=== PATIENT | male | born 1940 | race Caucasian/White ===

== ENCOUNTER 2017-01-02 17:26 | Observation (INO) | payer MEDICARE ==
[~2017-01-02] VITALS: Ht 177.8 cm; Wt 92.4 kg
[2017-01-02 17:37] VITALS: BP 162/90; PULSE 71; RESP 18; TEMP 98.1; O2SAT 98
[2017-01-02] MEDS ORDERED: BP pill PO (17:56)
[2017-01-02] MEDS ORDERED: XARE10TA PO (17:56)
[2017-01-02] MEDS ORDERED: SODIUM CHLOR 0.9% 1000 ML INJ 1,000 ML IV SCH (18:16)
[2017-01-02 18:30] VITALS: O2SAT 98
[2017-01-02] MEDS ORDERED: FAMOTIDINE 20 MG/2 ML VIAL IV PUSH ONE (18:30)
[2017-01-02] MEDS ORDERED: SODIUM CHLORIDE 0.9% FLUSH 10 ML FLUSH IV FLUSH PRN ×2 (18:30→22:00)
[2017-01-02] MEDS ORDERED: ONDANSETRON HCL 4 MG/2 ML VIAL IVP ONE (18:30)
[2017-01-02 18:33] LABS: AUTOMATED NEUTROPHIL # 17.6 TH/MM3 (1.8-7.7); BASOPHIL # 0.2 TH/MM3 (0-0.2); BASOPHIL % 0.9 % (0.0-2.0); EOSINOPHIL # 0.1 TH/MM3 (0-0.4); EOSINOPHIL % 0.4 % (0.0-4.0); HEMATOCRIT 37.2 % (39.0-51.0); LYMPH % 4.8 % (9.0-44.0); LYMPHOCYTE # 0.9 TH/MM3 (1.0-4.8); MEAN CELL VOLUME 90.5 FL (80.0-100.0); MEAN CORPUSCULAR HEMOGLOBIN 30.7 PG (27.0-34.0); MEAN CORPUSCULAR HGB CONC 33.9 % (32.0-36.0); MONO % 3.7 % (0.0-8.0); NEUT % 90.2 % (16.0-70.0); PLATELET COUNT 648 TH/MM3 (150-450); RED BLOOD COUNT 4.11 MIL/MM3 (4.50-5.90); RED CELL DISTRIBUTION WIDTH 15.3 % (11.6-17.2); WHITE BLOOD COUNT 19.5 TH/MM3 (4.0-11.0)
--- NOTE | 2017-01-02 18:33 | PD ---
HPI Chief Complaint: Flank/Kidney Pain Time Seen by Provider: 17:56 Travel History International Travel<30 days: No Contact w/Intl Traveler<30days: No Traveled to known affect area: No History of Present Illness HPI Patient is a 76 year old male who presents to ER with c/o of b/l flank pain, RUQ abdominal with nausea and vomiting since Saturday. Patient reports that he went to [facility] for a late lunch on Saturday, reports that since his lunch , he has been having increased nausea and vomiting. Denies diarrhea. Denies fever/chills. Reports that he is unable to keep any food or fluids down. Denies dysuria/urinary urgency/frequency. PFSH Past Medical History Hx Anticoagulant Therapy: Yes (XARELTO) Deep Vein Thrombosis: Yes Hypertension: Yes Tetanus Vaccination: Unknown Past Surgical History Other Surgery: Yes (Vein RLE, vasectomy ) Social History Alcohol Use: Yes ("Shots couple times a week" ) Tobacco Use: No Substance Use: No Allergies-Medications (Allergen,Severity, Reaction): Coded Allergies: No Known Allergies (Unverified , 01/02/17) Reported Meds & Prescriptions Reported Meds & Active Scripts Active Reported [BP pill] 1 Tab PO DAILY Xarelto (Rivaroxaban) 10 Mg Tab 10 Mg PO DAILY Review of Systems General / Constitutional: No: Fever Eyes: No: Visual changes HENT: No: Headaches Cardiovascular: No: Chest Pain or Discomfort Respiratory: No: Shortness of Breath Gastrointestinal: Positive: Nausea, Vomiting, Abdominal Pain Genitourinary: Positive: Flank Pain, No: Dysuria Musculoskeletal: No: Pain Skin: No Rash Neurologic: No: Weakness Psychiatric: No: Depression Endocrine: No: Polydipsia Hematologic/Lymphatic: No: Easy Bruising Physical Exam Narrative GENERAL: mild distress SKIN: Focused skin assessment warm/dry. HEAD: Atraumatic. Normocephalic. EYES: Pupils equal and round. No scleral icterus. No injection or drainage. ENT: No nasal bleeding or discharge. Mucous membranes pink and moist. NECK: Trachea midline. No JVD. CARDIOVASCULAR: Regular rate and rhythm. No murmur appreciated. RESPIRATORY: No accessory muscle use. Clear to auscultation. Breath sounds equal bilaterally. GASTROINTESTINAL: Abdomen soft, non-tender, nondistended. RUQ tenderness with no rebound or guarding on exam. MUSCULOSKELETAL: No obvious deformities. No clubbing. No cyanosis. No edema. Patient with b/l flank pain. NEUROLOGICAL: Awake and alert. No obvious cranial nerve deficits. Motor grossly within normal limits. Normal speech. PSYCHIATRIC: Appropriate mood and affect; insight and judgment normal. Data Data Last Documented VS Vital Signs Date Time Temp Pulse Resp B/P Pulse Ox O2 Delivery O2 Flow Rate FiO2 01/02/17 18:30 98 Room Air 01/02/17 17:37 98.1 71 18 162/90 Orders Complete Blood Count With Diff (01/02/17 18:16) Comprehensive Metabolic Panel (01/02/17 18:16) Lipase (01/02/17 18:16) Prothrombin Time / Inr (Pt) (01/02/17 18:16) Act Partial Throm Time (Ptt) (01/02/17 18:16) Urinalysis - C+S If Indicated (01/02/17 18:16) Ct Abd/Pel W/O Iv Contrast (01/02/17 18:16) Us Abdomen Gallbladder (01/02/17 ) Iv Access Insert/Monitor (01/02/17 18:16) Ecg Monitoring (01/02/17 18:16) Oximetry (01/02/17 18:16) Ondansetron Inj (Zofran Inj) (01/02/17 18:30) Sodium Chlor 0.9% 1000 Ml Inj (Ns 1000 M (01/02/17 18:16) Sodium Chloride 0.9% Flush (Ns Flush) (01/02/17 18:30) Electrocardiogram (01/02/17 18:16) Chest, Single Ap (01/02/17 18:16) Famotidine Inj (Pepcid Inj) (01/02/17 18:30) Labs Laboratory Tests Test 01/02/17 18:20 Prothrombin Time 12.5 SEC Prothromb Time International 1.1 RATIO Ratio Activated Partial 31.7 SEC Thromboplast Time Urine Color YELLOW Urine Turbidity CLOUDY Urine pH 7.0 Urine Specific [place] 1.010 Urine Protein 100 mg/dL Urine Glucose (UA) NEG mg/dL Urine Ketones 40 mg/dL Urine Occult Blood NEG Urine Nitrite NEG Urine Bilirubin NEG Urine Leukocyte Esterase NEG Urine Squamous Epithelial 0-5 /hpf Cells Urine Amorphous Sediment LARGE Urine Mucus MOD /lpf Microscopic Urinalysis Comment CULT NOT INDICATED Sodium Level 126 MEQ/L Potassium Level 3.8 MEQ/L Chloride Level 89 MEQ/L Carbon Dioxide Level 28.4 MEQ/L Anion Gap 9 MEQ/L Blood Urea Nitrogen 12 MG/DL Creatinine 0.88 MG/DL Estimat Glomerular Filtration 84 ML/MIN Rate Random Glucose 156 MG/DL Calcium Level 8.8 MG/DL Total Bilirubin 0.7 MG/DL Aspartate Amino Transf 30 U/L (AST/SGOT) Alanine Aminotransferase 34 U/L (ALT/SGPT) Alkaline Phosphatase 108 U/L Total Protein 6.4 GM/DL Albumin 3.0 GM/DL Lipase 210 U/L [facility] Medical Decision Making Medical Screen Exam Complete: Yes Emergency Medical Condition: Yes Interpretation(s) EKG at 1820: Normal sinus rhythm at 62 bpm, qt/qtc: 416/419, no acute st or t wave changes Vital Signs Date Time Temp Pulse Resp B/P Pulse Ox O2 Delivery O2 Flow Rate FiO2 01/02/17 17:37 98.1 71 18 162/90 98 Differential Diagnosis Gastritis, gastroenteritis, cholecystitis, electrolyte abnormality, pyelonephritis, cystitis Narrative Course Patient is a 76-year-old male who presents to emergency room with complaints of nausea and vomiting and abdominal pain since Saturday after eating at lunch. Patient reports that since Saturday, he has been unable to eat or drink anything , reports pain to bilateral flank as well as right upper quadrant. Patient with no fevers or chills, denies any diarrhea. Patient reports that his girlfriend ate similar foods and reports that she is feeling fine. Reports that he is the only one sick. On evaluation, patient is uncomfortable, nauseous on exam. Patient with right upper quadrant pain tenderness as well as bilateral flank pain. Labs as well as RUQ and CT of abdomen and pelvis ordered. Will give patient IVF and antiemetics. Patient signed out to care of Dr. Harris at change of shift Elisa Villa DO Jan 02, 2017 18:33
[2017-01-02 18:35] LABS: BLOOD, URINE NEG (NEG); GLUCOSE,URINE NEG (NEG); KETONE, URINE 40 mg/dL (NEG); NITRITE,URINE NEG (NEG)
--- NOTE | 2017-01-02 18:39 | RADHPO ---
EXAM DATE/TIME: 01/02/2017 18:19 [facility] COMPARISON: No previous studies available for comparison. INDICATIONS : Chest and abdominal pain. MEDICAL HISTORY : None. SURGICAL HISTORY : None. ENCOUNTER: Initial ACUITY: 1 day PAIN SCORE: 6/10 LOCATION: Bilateral lower chest FINDINGS: Mild basilar consolidation seen on the right. No pleural effusion. No pneumothorax. Heart size within normal limits. CONCLUSION: Mild right base consolidation. Santos Arce MD on January 02, 2017 at 18:36 Board Certified Radiologist. This report was verified electronically.
[2017-01-02 18:41] LABS: CHLORIDE 89 MEQ/L (98-107); POTASSIUM 3.8 MEQ/L (3.5-5.1); SODIUM (NA) 126 MEQ/L (136-145)
[2017-01-02 18:45] LABS: ANION GAP 9 MEQ/L (5-15); BICARBONATE 28.4 MEQ/L (21.0-32.0); BLOOD UREA NITROGEN 12 MG/DL (7-18); URINE COLOR YELLOW (YELLW/STRAW)
[2017-01-02 18:47] LABS: APTT (PATIENT) 31.7 SEC (24.3-30.1); COMMENT (UR) CULT NOT INDICATED; CULTURE IF INDICATED CULT NOT INDICATED; INTERNATIONAL NORMALIZED RATIO 1.1 RATIO; MUCUS URINE MOD /lpf (OCC); PROTHROMBIN TIME - PATIENT 12.5 SEC (9.8-11.6); SQUAMOUS EPITHELIAL CELL URINE 0-5 /hpf (0-5)
[2017-01-02 18:48] LABS: ALT (GPT) 34 U/L (12-78); AST (GOT) 30 U/L (15-37); GLOMERULAR FILTRATION RATE 84 ML/MIN (>89)
[2017-01-02 18:50] LABS: TOTAL BILIRUBIN ADULT 0.7 MG/DL (0.2-1.0)
[2017-01-02 18:51] LABS: ALKALINE PHOSPHATASE 108 U/L (45-117)
[2017-01-02 18:58] LABS: HEMO FLAGS AUTO DIFF
[2017-01-02 19:05] VITALS: BP 168/86; PULSE 69; RESP 16; O2SAT 98
--- NOTE | 2017-01-02 19:19 | RADHPO ---
EXAM DATE/TIME: 01/02/2017 18:45 [facility] COMPARISON: No previous studies available for comparison. INDICATIONS : Right upper quadrant pain. MEDICAL HISTORY : Hypertension. Deep venous thrombosis. Anticoagulant therapy, Xarelto. SURGICAL HISTORY : RLE vein. Vasectomy. ENCOUNTER: Initial ACUITY: 2 days PAIN SCORE: 9/10 LOCATION: Right upper quadrant MEASUREMENTS: LIVER: 14.9 cm length COMMON DUCT: 4 mm RIGHT KIDNEY: 10.9 x 4.2 x 6.0 cm FINDINGS: LIVER: Normal echotexture without focal lesion or ductal dilatation. There is normal flow velocity and direc tion in the main portal vein. COMMON DUCT: No intraluminal mass or stone visualized. GALLBLADDER: Contains no stones, demonstrates no wall thickening or pericholecystic fluid. PANCREAS: The visualized portions are within normal limits. RIGHT KIDNEY: No evidence of hydronephrosis, stone, or mass. CONCLUSION: Right upper quadrant ultrasound within normal limits. Santos Arce MD on January 02, 2017 at 19:17 Board Certified Radiologist. This report was verified electronically.
--- NOTE | 2017-01-02 19:22 | PD ---
Physical Exam Date Seen by Provider: Jan 02, 2017 Time Seen by Provider: 19:21 Narrative Accepted in transfer of care from Dr. Villa GENERAL: Well-developed pleasant male in no acute respiratory distress SKIN: Warm and dry. HEAD: Normocephalic. EYES: No scleral icterus. No injection or drainage. NECK: Supple, trachea midline. No JVD or lymphadenopathy. CARDIOVASCULAR: Regular rate and rhythm without murmurs, gallops, or rubs. RESPIRATORY: Breath sounds equal bilaterally. No accessory muscle use. GASTROINTESTINAL: Abdomen soft, right lower quadrant tenderness to palpation, nondistended. MUSCULOSKELETAL: No cyanosis, right lower leg edema with Unna boot in place, site evaluated no induration increased erythema or purulent drainage; bilateral capillary refill brisk and less than 2 seconds. BACK: Nontender without obvious deformity. No CVA tenderness. Data Data Last Documented VS Vital Signs Date Time Temp Pulse Resp B/P Pulse Ox O2 Delivery O2 Flow Rate FiO2 01/02/17 19:05 69 16 168/86 98 Room Air 01/02/17 17:37 98.1 Orders Complete Blood Count With Diff (01/02/17 18:16) Comprehensive Metabolic Panel (01/02/17 18:16) Lipase (01/02/17 18:16) Prothrombin Time / Inr (Pt) (01/02/17 18:16) Act Partial Throm Time (Ptt) (01/02/17 18:16) Urinalysis - C+S If Indicated (01/02/17 18:16) Ct Abd/Pel W/O Iv Contrast (01/02/17 18:16) Us Abdomen Gallbladder (01/02/17 ) Iv Access Insert/Monitor (01/02/17 18:16) Ecg Monitoring (01/02/17 18:16) Oximetry (01/02/17 18:16) Ondansetron Inj (Zofran Inj) (01/02/17 18:30) Sodium Chlor 0.9% 1000 Ml Inj (Ns 1000 M (01/02/17 18:16) Sodium Chloride 0.9% Flush (Ns Flush) (01/02/17 18:30) Electrocardiogram (01/02/17 18:16) Chest, Single Ap (01/02/17 18:16) Famotidine Inj (Pepcid Inj) (01/02/17 18:30) Ondansetron Inj (Zofran Inj) (01/02/17 20:00) Morphine Inj (Morphine Inj) (01/02/17 20:00) Blood Culture (01/02/17 20:37) Lactic Acid (01/02/17 20:37) Piperacil-Tazo 4.5 Gm Premix (Zosyn 4.5 (01/02/17 20:45) Vancomycin Inj (Vancomycin Inj) (01/02/17 20:45) Complete Blood Count With Diff (01/02/17 20:57) Admit Order (Ed Use Only) (01/02/17 ) ^ Saline Lock (01/02/17 20:59) Resp Oxygen Jared C Titrat 1-4 L (01/02/17 ) Notify Dr: Other (01/02/17 20:59) Sodium Chloride 0.9% Flush (Ns Flush) (01/02/17 21:00) Sodium Chloride 0.9% Flush (Ns Flush) (01/02/17 21:00) Labs Laboratory Tests Test 01/02/17 01/02/17 18:20 20:55 White Blood Count 19.5 TH/MM3 Red Blood Count 4.11 MIL/MM3 Hemoglobin 12.6 GM/DL Hematocrit 37.2 % Mean Corpuscular Volume 90.5 FL Mean Corpuscular Hemoglobin 30.7 PG Mean Corpuscular Hemoglobin 33.9 % Concent Red Cell Distribution Width 15.3 % Platelet Count 648 TH/MM3 Mean Platelet Volume 7.2 FL Neutrophils (%) (Auto) 90.2 % Lymphocytes (%) (Auto) 4.8 % Monocytes (%) (Auto) 3.7 % Eosinophils (%) (Auto) 0.4 % Basophils (%) (Auto) 0.9 % Neutrophils # (Auto) 17.6 TH/MM3 Lymphocytes # (Auto) 0.9 TH/MM3 Monocytes # (Auto) 0.7 TH/MM3 Eosinophils # (Auto) 0.1 TH/MM3 Basophils # (Auto) 0.2 TH/MM3 CBC Comment AUTO DIFF Differential Comment AUTO DIFF CONFIRMED Platelet Estimate HIGH Platelet Morphology Comment ENLARGED Prothrombin Time 12.5 SEC Prothromb Time International 1.1 RATIO Ratio Activated Partial 31.7 SEC Thromboplast Time Urine Color YELLOW Urine Turbidity CLOUDY Urine pH 7.0 Urine Specific [place] 1.010 Urine Protein 100 mg/dL Urine Glucose (UA) NEG mg/dL Urine Ketones 40 mg/dL Urine Occult Blood NEG Urine Nitrite NEG Urine Bilirubin NEG Urine Leukocyte Esterase NEG Urine Squamous Epithelial 0-5 /hpf Cells Urine Amorphous Sediment LARGE Urine Mucus MOD /lpf Microscopic Urinalysis Comment CULT NOT INDICATED Sodium Level 126 MEQ/L Potassium Level 3.8 MEQ/L Chloride Level 89 MEQ/L Carbon Dioxide Level 28.4 MEQ/L Anion Gap 9 MEQ/L Blood Urea Nitrogen 12 MG/DL Creatinine 0.88 MG/DL Estimat Glomerular Filtration 84 ML/MIN Rate Random Glucose 156 MG/DL Calcium Level 8.8 MG/DL Total Bilirubin 0.7 MG/DL Aspartate Amino Transf 30 U/L (AST/SGOT) Alanine Aminotransferase 34 U/L (ALT/SGPT) Alkaline Phosphatase 108 U/L Total Protein 6.4 GM/DL Albumin 3.0 GM/DL Lipase 210 U/L Lactic Acid Level 1.3 mmol/L [facility] Medical Record Reviewed: Yes Supervised Visit with TREVON: No Interpretation(s) Vital Signs Date Time Temp Pulse Resp B/P Pulse Ox O2 Delivery O2 Flow Rate FiO2 01/02/17 19:05 69 16 168/86 98 Room Air 01/02/17 18:30 98 Room Air 01/02/17 17:37 98.1 71 18 162/90 98 Last Impressions Chest X-Ray 01/02/171815 Signed Impressions: Service Date/Time: Monday, January 02, 2017 18:19 - CONCLUSION: Mild right base consolidation. Santos Arce MD Abdomen/Pelvis CT 01/02/171815 Signed Impressions: Service Date/Time: Monday, January 02, 2017 19:50 - CONCLUSION: 1. Right kidney appears indurated relative to the left but the etiology is uncertain. A recently passed stone would be conceivable but I don't see one in the bladder or significant residual hydronephrosis or hydroureter. Acute right pyelonephritis would be conceivable in the proper clinical setting. 2. 2 cm left upper pole cyst has generally benign noncontrast appearance. 3. Sigmoid colon diverticulosis. No diverticulitis. 4. 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 Santos Arce MD Gall Bladder Ultrasound 01/02/17 0000 Signed Impressions: Service Date/Time: Monday, January 02, 2017 18:45 - CONCLUSION: Right upper quadrant ultrasound within normal limits. Santos Arce MD CBC & BMP Diagram 01/02/17 18:20 UA: grossly wnl Differential Diagnosis Accepted in transfer of care from Dr. Villa; please refer to her dictation Narrative Course Accepted in transfer of care from Dr. Villa for follow-up of pending ultrasound CT and patient admission 76-year-old male presents to the emergency department for a day and a half of abdominal pain localizing to the right lower quadrant with 3 episodes of vomiting 2 bowel movements no hematemesis no coffee-ground emesis no melena hematochezia no difficulty with urination denies fever chills has experienced some anorexia. Patient states no prior abdominal surgeries. Patient is on Xarelto for diagnosis of DVT of the right lower extremity. Patient also has history of hypertension. Patient identified on review of diagnostics to have white count of 19,500 with left shift 92% neutrophils with grossly within normal range complete metabolic panel (except hyponatremia 126) and urinalysis; chest x-ray reveals mild right base consolidation and ultrasound of the right upper quadrant that is reported as normal. It is 7:55 PM patient is going now to CT for imaging. Patient has been ordered IV fluids normal saline 100 cc per hour, Zosyn 3.375 g IV piggyback; Zofran 4 mg IV and Morphine sulfate 3mg IV. Ana Lilia BANKS notified of repeat cbc results Sepsis Criteria SIRS Criteria (2 or more): WBC > 05541, < 4000 or > 10% bands Physician Communication Physician Communication discussed with Dr Luke --requests obs admit and stat repeat cbc Diagnosis Primary Impression: Abdominal pain Qualified Code: R10.31 - Right lower quadrant abdominal pain Additional Impression: Leukocytosis Qualified Code: D72.829 - Leukocytosis, unspecified type Admitting Information Admitting Physician Requests: Linda Toney MD Jan 02, 2017 19:22
[2017-01-02 19:45] LABS: PLATELET ESTIMATE SMEAR HIGH (NORMAL); PLATELET MORPHOLOGY ENLARGED (NORMAL)
[2017-01-02 19:46] LABS: SCAN/DIFF AUTO DIFF CONFIRMED
[2017-01-02] MEDS ORDERED: ONDANSETRON HCL 4 MG/2 ML VIAL IV PUSH ONE (20:00)
[2017-01-02] MEDS ORDERED: MORPHINE SULFATE 4 MG/ML INJ IV PUSH ONE (20:00)
--- NOTE | 2017-01-02 20:26 | RADHPO ---
EXAM DATE/TIME: 01/02/2017 19:50 [facility] COMPARISON: No previous studies available for comparison. INDICATIONS : Bilateral flank pain and right upper quadrant pain. ORAL CONTRAST: No oral contrast ingested. RADIATION DOSE: 18.71 CTDIvol (mGy) MEDICAL HISTORY : Hypertension. Deep venous thrombosis. SURGICAL HISTORY : None. ENCOUNTER: Initial ACUITY: 2 days PAIN SCALE: 5/10 LOCATION: Bilateral flank TECHNIQUE: Volumetric scanning of the abdomen and pelvis was performed. Using automated exposure control and ad justment of the mA and/or kV according to patient size, radiation dose was kept as low as reasonably achievable to obtain optimal diagnostic quality images. FINDINGS: LOWER LUNGS: Trace basilar atelectasis, mainly on the right. LIVER: Homogeneous density without lesion. There is no dilation of the biliary tree. No calcified gallston es. SPLEEN: Normal size without lesion. PANCREAS: Within normal limits. KIDNEYS: Right kidney appears mildly indurated and with mild perinephric edema relative to the left. However, I don't see a stone or hydronephrosis or hydroureter. 2 cm low density lesion seen upper pole the lef t kidney, noncontrast appearance typical of a simple cyst. ADRENAL GLANDS: Within normal limits. VASCULAR: There is no aortic aneurysm. BOWEL/MESENTERY: There is moderately severe diverticulosis of the sigmoid colon. No acute inflammatory changes are dem onstrated. No obstruction. The appendix is well-visualized and normal. There is no free fluid. ABDOMINAL WALL: Within normal limits. RETROPERITONEUM: There is no lymphadenopathy. BLADDER: No wall thickening or mass. REPRODUCTIVE: Within normal limits. INGUINAL: There is no lymphadenopathy or hernia. MUSCULOSKELETAL: No fracture demonstrated. There are severe multilevel degenerative changes of the lumbar spine and le voconvex curvature. CONCLUSION: 1. Right kidney appears indurated relative to the left but the etiology is uncertain. A recently pass ed stone would be conceivable but I don't see one in the bladder or significant residual hydronephros is or hydroureter. Acute right pyelonephritis would be conceivable in the proper clinical setting. 2. 2 cm left upper pole cyst has generally benign noncontrast appearance. 3. Sigmoid colon diverticulosis. No diverticulitis. 4. 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 Santos Arce MD on January 02, 2017 at 20:20 Board Certified Radiologist. This report was verified electronically.
[2017-01-02] MEDS ORDERED: PIPERACIL-TAZO 4.5 GM PREMIX 100 ML IV ONE (20:45)
[2017-01-02] MEDS ORDERED: VANCOMYCIN INJ 1,000 MG in SODIUM CHLOR 0.9% 250 ML INJ 250 ML IV ONE (20:45)
[2017-01-02] MEDS ORDERED: SODIUM CHLORIDE 0.9% FLUSH 10 ML FLUSH IV FLUSH SCH (21:00)
[2017-01-02] MEDS ORDERED: SODIUM CHLORIDE 0.9% FLUSH 10 ML FLUSH IVF PRN (21:00)
[2017-01-02 21:22] VITALS: O2SAT 98
[2017-01-02 21:34] LABS: AUTOMATED NEUTROPHIL # 17.5 TH/MM3 (1.8-7.7); BASOPHIL # 0.2 TH/MM3 (0-0.2); BASOPHIL % 0.8 % (0.0-2.0); EOSINOPHIL % 0.1 % (0.0-4.0); HEMATOCRIT 36.1 % (39.0-51.0); LYMPHOCYTE # 0.8 TH/MM3 (1.0-4.8); MEAN CELL VOLUME 90.4 FL (80.0-100.0); MEAN CORPUSCULAR HEMOGLOBIN 31.1 PG (27.0-34.0); MEAN CORPUSCULAR HGB CONC 34.4 % (32.0-36.0); MONO % 4.4 % (0.0-8.0); NEUT % 90.7 % (16.0-70.0); PLATELET COUNT 609 TH/MM3 (150-450); RED CELL DISTRIBUTION WIDTH 15.3 % (11.6-17.2); WHITE BLOOD COUNT 19.4 TH/MM3 (4.0-11.0)
[2017-01-02 21:50] LABS: HEMO FLAGS AUTO DIFF
[2017-01-02 22:00] VITALS: BP 166/86; PULSE 70; RESP 16; O2SAT 96
[2017-01-02] MEDS ORDERED: NALOXONE HCL 0.4 MG/ML AMP IV PRN (22:00)
[2017-01-02 22:10] LABS: OVALOCYTES 1+ (NORMAL); PLATELET ESTIMATE SMEAR HIGH (NORMAL)
[2017-01-02 22:11] LABS: PLATELET MORPHOLOGY ENLARGED (NORMAL); SCAN/DIFF AUTO DIFF CONFIRMED
[2017-01-02] MEDS ORDERED: Vancomycin Consult Pharmacy 1 EA OTHER SCH (22:15)
[2017-01-02 23:50] VITALS: BP 160/85; PULSE 72; RESP 16; O2SAT 98
[2017-01-03] MEDS ORDERED: VANCOMYCIN 500 MG/NS 100 ML IV SCH ×2
[2017-01-03 00:30] VITALS: BP 164/97; PULSE 60; PULSE 68; RESP 17; TEMP 98; O2SAT 96
[2017-01-03] MEDS ORDERED: ACETAMINOPHEN/HYDROcodone 325 MG/5 MG TAB PO PRN (01:30)
[2017-01-03] MEDS ORDERED: MORPHINE SULFATE 4 MG/ML INJ IV PUSH PRN (01:30)
[2017-01-03] MEDS ORDERED: PIPERACIL-TAZO 4.5 GM PREMIX 100 ML IV SCH (03:00)
[2017-01-03 04:00] VITALS: BP 157/90; PULSE 66; RESP 16; TEMP 98.1; O2SAT 97
[2017-01-03 06:06] LABS: AUTOMATED NEUTROPHIL # 15.7 TH/MM3 (1.8-7.7); BASOPHIL % 0.1 % (0.0-2.0); EOSINOPHIL # 0.1 TH/MM3 (0-0.4); EOSINOPHIL % 0.3 % (0.0-4.0); LYMPH % 5.2 % (9.0-44.0); LYMPHOCYTE # 0.9 TH/MM3 (1.0-4.8); MEAN CELL VOLUME 91.1 FL (80.0-100.0); MEAN CORPUSCULAR HEMOGLOBIN 30.9 PG (27.0-34.0); MEAN CORPUSCULAR HGB CONC 33.9 % (32.0-36.0); NEUT % 88.4 % (16.0-70.0); PLATELET COUNT 604 TH/MM3 (150-450); RED BLOOD COUNT 3.96 MIL/MM3 (4.50-5.90); RED CELL DISTRIBUTION WIDTH 15.3 % (11.6-17.2); WHITE BLOOD COUNT 17.8 TH/MM3 (4.0-11.0)
[2017-01-03 06:09] LABS: HEMO FLAGS DIFF FINAL
[2017-01-03 06:12] LABS: BICARBONATE 28.4 MEQ/L (21.0-32.0)
[2017-01-03 08:00] VITALS: BP 163/88; PULSE 64; RESP 18; TEMP 98; O2SAT 97
[2017-01-03] MEDS ORDERED: SODIUM CHLORIDE 0.9% FLUSH 10 ML FLUSH IV FLUSH SCH (09:00)
[2017-01-03] MEDS ORDERED: RIVAROXABAN 10 MG TAB PO SCH (09:45)
[2017-01-03] MEDS ORDERED: SODIUM CHLOR 0.9% 1000 ML INJ 1,000 ML IV SCH (10:00)
--- NOTE | 2017-01-03 10:03 | HHI.HP ---
HPI Service [facility] Primary Care Physician Non-Staff Admission Diagnosis abdominal pain; leukocytosis Diagnoses: Chief Complaint: Flank pain Travel History International Travel<30 Days: No Contact w/Intl Traveler <30 Da: No Traveled to Known Affected Are: No History of Present Illness The patient is a 76-year-old male with past medical history of DVT who is presenting to the hospital with severe bilateral flank pain. The patient says at noon on Saturday he ate greasy food at [facility] and developed an attack of pain on both of his sides. He said the pain was located at the flanks and was very severe in nature. He did also endorse some abdominal pain. He said he was having episodes of vomiting on Saturday and Saturday. He has not felt feverish. He has not had any diarrhea. He decided to come into the hospital because the pain was so severe. In the emergency department his pain medication resolved at midnight. He currently has mild residual nausea. He would like to be discharged home as he says his symptoms have resolved. He denies any blood in his urine or pain while urinating. He does endorse a history of protein in his urine and says he was supposed to have a kidney biopsy which he is not excited about pursuing. Review of Systems Except as stated in HPI: all other systems reviewed are Neg Past Family Social History Past Medical History Hypertension Right lower extremity DVT Right lower extremity chronic wound Past Surgical History Vasectomy Allergies: Coded Allergies: No Known Allergies (Unverified , 01/02/17) Active Ordered Medications Current Medications Medications (Trade) Dose Ordered Sig/Jose Route Start Time Stop Time Status Last Admin (NS Flush) 2 ml UNSCH PRN IV FLUSH 01/02/17 22:00 (NS Flush) 2 ml BID IV FLUSH 01/03/17 09:00 (Narcan Inj) 0.4 mg UNSCH PRN IV 01/02/17 22:00 (Morphine Inj) 2 mg Q6H PRN IV PUSH 01/03/17 01:30 01/03/17 02:28 ([place] 5-325 Mg) 1 tab Q6H PRN PO 01/03/17 01:30 Miscellaneous Information SPECIFIC LAB TO BE WESTLEY... ONCE ONCE .XX 01/04/17 11:45 01/04/17 11:46 Rivaroxaban 10 mg 10 mg DAILY PO 01/03/17 09:45 (NS 1000 ml Inj) 1,000 ml @ 150 mls/hr Q6H40M IV 01/03/17 10:00 01/03/17 16:39 UNV Family History Cancer Social History The patient does not smoke, drink or use illicit substances. Physical Exam Vital Signs Vital Signs Date Time Temp Pulse Resp B/P Pulse Ox O2 Delivery O2 Flow Rate FiO2 01/03/17 04:00 98.1 66 16 157/90 97 01/03/17 00:30 98.0 68 17 164/97 96 01/03/17 00:30 60 01/02/17 23:50 72 16 160/85 98 Room Air 01/02/17 22:00 70 16 166/86 96 Room Air 01/02/17 21:22 98 21 01/02/17 21:12 18 01/02/17 19:05 69 16 168/86 98 Room Air 01/02/17 18:30 98 Room Air 01/02/17 17:37 98.1 71 18 162/90 98 Physical Exam GENERAL: This is a well-nourished, well-developed patient, in no apparent distress. SKIN: No rashes, ecchymoses or lesions. Cool and dry. HEAD: Atraumatic. Normocephalic. No temporal or scalp tenderness. EYES: Pupils equal round and reactive. Extraocular motions intact. No scleral icterus. No injection or drainage. ENT: Nose without bleeding, purulent drainage or septal hematoma. Throat without erythema, tonsillar hypertrophy or exudate. Uvula midline. Airway patent. NECK: Trachea midline. No JVD or lymphadenopathy. Supple, nontender, no meningeal signs. CARDIOVASCULAR: Regular rate and rhythm without murmurs, gallops, or rubs. RESPIRATORY: Clear to auscultation. Breath sounds equal bilaterally. No wheezes , rales, or rhonchi. GASTROINTESTINAL: Abdomen soft, non-tender, nondistended. No hepato-splenomegaly , or palpable masses. No guarding or rebound. MUSCULOSKELETAL: Right lower extremity is bandaged. Nontender to palpation. Positive pedal pulses. NEUROLOGICAL: Awake and alert. Cranial nerves II through XII intact. Motor and sensory grossly within normal limits. Five out of 5 muscle strength in all muscle groups. Normal speech. Laboratory Laboratory Tests Test 01/02/17 01/02/17 01/02/17 01/03/17 18:20 20:55 21:07 05:27 White Blood Count 19.5 19.4 17.8 Red Blood Count 4.11 4.00 3.96 Hemoglobin 12.6 12.4 12.2 Hematocrit 37.2 36.1 36.0 Mean Corpuscular Volume 90.5 90.4 91.1 Mean Corpuscular Hemoglobin 30.7 31.1 30.9 Mean Corpuscular Hemoglobin 33.9 34.4 33.9 Concent Red Cell Distribution Width 15.3 15.3 15.3 Platelet Count 648 609 604 Mean Platelet Volume 7.2 7.6 7.6 Neutrophils (%) (Auto) 90.2 90.7 88.4 Lymphocytes (%) (Auto) 4.8 4.0 5.2 Monocytes (%) (Auto) 3.7 4.4 6.0 Eosinophils (%) (Auto) 0.4 0.1 0.3 Basophils (%) (Auto) 0.9 0.8 0.1 Neutrophils # (Auto) 17.6 17.5 15.7 Lymphocytes # (Auto) 0.9 0.8 0.9 Monocytes # (Auto) 0.7 0.9 1.1 Eosinophils # (Auto) 0.1 0.0 0.1 Basophils # (Auto) 0.2 0.2 0.0 CBC Comment AUTO DIFF AUTO DIFF DIFF FINAL Differential Comment AUTO DIFF AUTO DIFF CONFIRMED CONFIRMED Platelet Estimate HIGH HIGH Platelet Morphology Comment ENLARGED ENLARGED Prothrombin Time 12.5 Prothromb Time International 1.1 Ratio Activated Partial 31.7 Thromboplast Time Urine Color YELLOW Urine Turbidity CLOUDY Urine pH 7.0 Urine Specific [place] 1.010 Urine Protein 100 Urine Glucose (UA) NEG Urine Ketones 40 Urine Occult Blood NEG Urine Nitrite NEG Urine Bilirubin NEG Urine Leukocyte Esterase NEG Urine Squamous Epithelial 0-5 Cells Urine Amorphous Sediment LARGE Urine Mucus MOD Microscopic Urinalysis Comment CULT NOT INDICATED Sodium Level 126 126 Potassium Level 3.8 4.0 Chloride Level 89 90 Carbon Dioxide Level 28.4 28.4 Anion Gap 9 8 Blood Urea Nitrogen 12 12 Creatinine 0.88 0.86 Estimat Glomerular Filtration 84 87 Rate Random Glucose 156 135 Calcium Level 8.8 8.6 Total Bilirubin 0.7 Aspartate Amino Transf 30 (AST/SGOT) Alanine Aminotransferase 34 (ALT/SGPT) Alkaline Phosphatase 108 Total Protein 6.4 Albumin 3.0 Lipase 210 Lactic Acid Level 1.3 Ovalocytes 1+ Date/Time Procedure Status Source Growth 01/02/17 21:07 Aerobic Blood Culture Received Blood Peripheral Pending 01/02/17 21:07 Anaerobic Blood Culture Received Blood Peripheral Pending Result Diagram: 01/03/17 0527 01/03/17526 Imaging Last Impressions Chest X-Ray 01/02/171815 Signed Impressions: Service Date/Time: Monday, January 02, 2017 18:19 - CONCLUSION: Mild right base consolidation. Santos Arce MD Abdomen/Pelvis CT 01/02/171815 Signed Impressions: Service Date/Time: Monday, January 02, 2017 19:50 - CONCLUSION: 1. Right kidney appears indurated relative to the left but the etiology is uncertain. A recently passed stone would be conceivable but I don't see one in the bladder or significant residual hydronephrosis or hydroureter. Acute right pyelonephritis would be conceivable in the proper clinical setting. 2. 2 cm left upper pole cyst has generally benign noncontrast appearance. 3. Sigmoid colon diverticulosis. No diverticulitis. 4. 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 Santos Arce MD Gall Bladder Ultrasound 01/02/17 0000 Signed Impressions: Service Date/Time: Monday, January 02, 2017 18:45 - CONCLUSION: Right upper quadrant ultrasound within normal limits. Santos Arce MD Assessment and Plan Assessment and Plan Severe flank pain Unsure of etiology. CT scan showed: Right kidney appears indurated relative to the left but the etiology is uncertain; 2 cm left upper pole cyst has generally benign noncontrast appearance. Gallbladder US unremarkable. UA also unremarkable. May be s/t pyelonephritis. Abdominal exam is benign. Has some residual nausea. - complete course of Levaquin. - pain control and antiemetics as needed. Leukocytosis May be stress response or s/t infection. CXR with right base consolidation. - Levaquin as above. 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 - outpt follow-up. Hyperglycemia/ Thrombocythemia May be a stress response. - outpt follow-up. Hypertension Blood pressure has been elevated. Not on his home meds. - resume home meds. - Vasotec as needed. Chronic leg wound On the right. Follows at wound clinic. - continue wound care. Hyponatremia S/t decreased PO intake. - IVFs. - ADAT. PPx: SCDs. Discussed Condition With Pt. Tyler Swanson DO Jan 03, 2017 10:03
[2017-01-03] MEDS ORDERED: LEVA750T PO (10:23)
--- NOTE | 2017-01-03 10:24 | HHI.DCPOC ---
Discharge Care Plan Diagnosis: (1) Leukocytosis (2) Abdominal pain (3) Hyponatremia (4) Hypertension (5) DVT (deep venous thrombosis) Goals to Promote Your Health * To prevent worsening of your condition and complications * To maintain your health at the optimal level Directions to Meet Your Goals Take your medications as prescribed Follow your dietary instruction Follow activity as directed Keep your appointments as scheduled Take your immunizations and boosters as scheduled If your symptoms worsen call your PCP, if no PCP go to Urgent Care Center or Emergency Room Smoking is Dangerous to Your Health. Avoid second hand smoke Call the 24-hour hour crisis hotline for domestic abuse at Tyler Swanson DO Jan 03, 2017 10:24
--- NOTE | 2017-01-03 10:25 | HHI.FF ---
Face to Face Verification Diagnosis: (1) Hyponatremia (2) Leukocytosis (3) DVT (deep venous thrombosis) (4) Abdominal pain (5) Hypertension Home Health Nursing Order: Medical education Wound care and dressing changes Nursing assessment with vital signs I have seen patient Ziggy Wilkins on 01/03/17. My clinical findings support the need for the requested home health care services because: Ltd mobility - disease progression Deconditioned w/ increased weakness Limited ability to care for self I certify that my clinical findings support that this patient is homebound because: Unsteady gait/balance Unsafe to leave home unassisted Tyler Swanson DO Jan 03, 2017 10:25
[2017-01-03] MEDS ORDERED: PANTOPRAZOLE SOD 40 MG DELAYED RELEASE TAB PO ONE (10:45)
[2017-01-03] MEDS ORDERED: LEVOFLOXACIN 750 MG TAB PO SCH (11:00)
[2017-01-03] MEDS ORDERED: VANCOMYCIN INJ 1,500 MG in SODIUM CHLORID 0.9% 500 ML INJ 500 ML IV SCH (12:00)
[2017-01-04] MEDS ORDERED: REGL10TA5 PO (09:10)
[2017-01-04] MEDS ORDERED: LOSA25TA PO (09:10)
[2017-01-04] MEDS ORDERED: TRAM50TA PO (09:10)
[2017-01-04] MEDS ORDERED: BUPR150T3 PO (09:10)
[2017-01-04] MEDS ORDERED: PERC5TAB12 PO (09:10)
[2017-01-04] MEDS ORDERED: PHARMACY ORDERED LAB ONE (11:45)
--- NOTE | 2017-01-07 08:19 | EKG ---
Date Performed: 01/02/2017 Time Performed: 18:20:46 PTAGE: 76 years EKG: Sinus arrhythmia Left anterior fascicular block Poor R wave progression - cannot rule out s eptal infarct Abnormal ECG NO PREVIOUS TRACING DOCTOR: Aneudy Henning Interpretating Date/Time 01/07/2017 08:16:41
== END 2017-01-03 12:10 | disposition home or self-care (01) ==
LOC: PHED 17:26 → PHEDA 21:00 → PH3A 01-03 00:02
PROVIDERS: ADMIT Hospitalist; ATTEND Hospitalist
DX: R10.31 Right lower quadrant pain (principal); D72.829 Elevated white blood cell count, unspecified; E87.1 Hypo-osmolality and hyponatremia; N13.6 Pyonephrosis; R73.9 Hyperglycemia, unspecified; D47.3 Essential (hemorrhagic) thrombocythemia; I10 Essential (primary) hypertension; K57.90 Diverticulosis of intestine, part unspecified, without perforation or abscess without bleeding; I82.509 Chronic embolism and thrombosis of unspecified deep veins of unspecified lower extremity; Z79.01 Long term (current) use of anticoagulants
CPT/HCPCS: 71010; 74176; 76705; 80048; 80053; 81001; 83605; 83690; 85025; 85610; 85730; 87040; 93005; 96361; 96374; 96375; 96376; 97161; 99285; G0378; G8987; G8988; J2270; J2405; J2543; J3370; J7030; J7050

== ENCOUNTER 2017-01-04 08:21 | Inpatient (IN) | payer MEDICARE ==
[2017-01-04] VITALS (17 sets, daily range): BP systolic 144–245; BP diastolic 90–129; PULSE 83–106; RESP 18–35; TEMP 98.6–100.5; O2SAT 95–98
[~2017-01-04] VITALS: Ht 177.8 cm; Wt 98.9 kg
[~2017-01-04 08:21] MED LIST: BP pill PO; LEVA750T PO; XARE10TA PO
[2017-01-04] MEDS ORDERED: SODIUM CHLORID 0.9% 500 ML INJ 500 ML IV ONE (09:00)
--- NOTE | 2017-01-04 09:05 | PD ---
HPI Chief Complaint: Altered Mental Status Time Seen by Provider: 08:39 Travel History International Travel<30 days: No Contact w/Intl Traveler<30days: No Traveled to known affect area: No History of Present Illness HPI Patient is a 76 year old male who comes in due to altered mental status. Patient was discharged from the hospital yesterday after being admitted for possible pyelonephritis. Per his friend, he was normal when he went to bed last night around 9PM, but this morning, he seemed very confused. His friend describes it as "not being able to make decisions." Patient is unable to express anything that is bothering him. PFSH Past Medical History Hx Anticoagulant Therapy: Yes (XARELTO) Anxiety: Yes Depression: Yes Cancer: No Cardiovascular Problems: No Deep Vein Thrombosis: Yes Endocrine: No Genitourinary: No Hypertension: Yes Immune Disorder: No Musculoskeletal: No Neurologic: No Psychiatric: No Reproductive: No Respiratory: No Past Surgical History Other Surgery: Yes (Vein RLE, vasectomy, hernia) Social History Alcohol Use: Yes ("Shots couple times a week" ) Tobacco Use: No Substance Use: No Allergies-Medications (Allergen,Severity, Reaction): Coded Allergies: No Known Allergies (Unverified , 01/02/17) Reported Meds & Prescriptions Reported Meds & Active Scripts Active Levaquin (Levofloxacin) 750 Mg Tab 750 Mg PO DAILY@11 Reported Percocet (Oxycodone-Acetaminophen) 5-325 mg Tab 1 Tab PO Q8HR PRN Tramadol (Tramadol HCl) 50 Mg Tab 50 Mg PO Q6H PRN Reglan (Metoclopramide HCl) 10 Mg Tab 10 Mg PO TIDAC Bupropion HCl ER 24 HR (Bupropion HCl) 150 Mg Tab 150 Mg PO DAILY Losartan (Losartan Potassium) 25 Mg Tab 25 Mg PO BID Xarelto (Rivaroxaban) 10 Mg Tab 10 Mg PO DAILY Review of Systems ROS Limitations: Altered Mental Status Physical Exam Exam Limitations: Altered Mental Status Narrative GENERAL: Awake and alert but appears confused. SKIN: Focused skin assessment warm/dry. Chronic wound to the medial side of right lower extremity. HEAD: Atraumatic. Normocephalic. EYES: Pupils equal and round. No scleral icterus. Extraocular movements intact. ENT: Mucous membranes pink and moist. NECK: Trachea midline. No JVD. CARDIOVASCULAR: Regular rate and rhythm. No murmur appreciated. RESPIRATORY: Tachypnea. Clear to auscultation. Breath sounds equal bilaterally. GASTROINTESTINAL: Abdomen soft, non-tender, nondistended. MUSCULOSKELETAL: No obvious deformities. No clubbing. No cyanosis. No edema. NEUROLOGICAL: Awake and alert but having trouble answering questions. Patient tries to come up with the answer to the question and just stopped speaking. No obvious cranial nerve deficits. Motor grossly within normal limits. Normal speech. Data Data Last Documented VS Vital Signs Date Time Temp Pulse Resp B/P Pulse Ox O2 Delivery O2 Flow Rate FiO2 01/04/17 11:00 85 20 205/98 95 01/04/17 10:54 Room Air 01/04/17 09:51 98.6 Orders Ammonia (01/04/17 08:48) Complete Blood Count With Diff (01/04/17 08:48) Comprehensive Metabolic Panel (01/04/17 08:48) Creatine Kinase (Cpk) (01/04/17 08:48) Prothrombin Time / Inr (Pt) (01/04/17 08:48) Act Partial Throm Time (Ptt) (01/04/17 08:48) Troponin I (01/04/17 08:48) Lactic Acid Sepsis Protocol (01/04/17 08:48) Urinalysis - C+S If Indicated (01/04/17 08:48) Ua Includes Microscopic (01/04/17 08:48) Ct Brain W/O Iv Contrast(Rout) (01/04/17 08:48) Blood Glucose (01/04/17 08:48) Ecg Monitoring (01/04/17 08:48) Iv Access Insert/Monitor (01/04/17 08:48) Cath For Specimen (01/04/17 08:48) Oximetry (01/04/17 08:48) Oxygen Administration (01/04/17 08:48) Sodium Chloride 0.9% Flush (Ns Flush) (01/04/17 09:00) Sodium Chlorid 0.9% 500 Ml Inj (Ns 500 M (01/04/17 09:00) Chest, Single Ap (01/04/17 ) Labetalol Inj (Trandate Inj) (01/04/17 09:30) Blood Culture (01/04/17 09:22) Ceftriaxone Inj (Rocephin Inj) (01/04/17 09:30) Ct Abd/Pel W Iv Contrast(Rout) (01/04/17 ) Labetalol Inj (Trandate Inj) (01/04/17 10:30) Urinary Catheter Insert/Apply (01/04/17 10:24) Iohexol 350 Inj (Omnipaque 350 Inj) (01/04/17 10:48) Morphine Inj (Morphine Inj) (01/04/17 11:00) Insert Ng Tube (01/04/17 11:10) Admit Order (Ed Use Only) (01/04/17 ) Labs Laboratory Tests Test 01/04/17 01/04/17 08:56 09:24 White Blood Count 23.3 TH/MM3 Red Blood Count 4.59 MIL/MM3 Hemoglobin 14.1 GM/DL Hematocrit 42.0 % Mean Corpuscular Volume 91.6 FL Mean Corpuscular Hemoglobin 30.8 PG Mean Corpuscular Hemoglobin 33.7 % Concent Red Cell Distribution Width 15.0 % Platelet Count 657 TH/MM3 Mean Platelet Volume 7.8 FL Neutrophils (%) (Auto) 88.9 % Lymphocytes (%) (Auto) 3.5 % Monocytes (%) (Auto) 6.9 % Eosinophils (%) (Auto) 0.5 % Basophils (%) (Auto) 0.2 % Neutrophils # (Auto) 20.8 TH/MM3 Lymphocytes # (Auto) 0.8 TH/MM3 Monocytes # (Auto) 1.6 TH/MM3 Eosinophils # (Auto) 0.1 TH/MM3 Basophils # (Auto) 0.0 TH/MM3 CBC Comment AUTO DIFF Differential Comment AUTO DIFF CONFIRMED Prothrombin Time 12.8 SEC Prothromb Time International 1.2 RATIO Ratio Activated Partial 34.8 SEC Thromboplast Time Sodium Level 118 MEQ/L Potassium Level 3.8 MEQ/L Chloride Level 78 MEQ/L Carbon Dioxide Level 25.4 MEQ/L Anion Gap 15 MEQ/L Blood Urea Nitrogen 13 MG/DL Creatinine 0.87 MG/DL Estimat Glomerular Filtration 86 ML/MIN Rate Random Glucose 123 MG/DL Lactic Acid Level 1.1 mmol/L Calcium Level 8.9 MG/DL Total Bilirubin 1.2 MG/DL Aspartate Amino Transf 39 U/L (AST/SGOT) Alanine Aminotransferase 37 U/L (ALT/SGPT) Alkaline Phosphatase 116 U/L Ammonia 27 MCMOL/L Total Creatine Kinase 249 U/L Troponin I LESS THAN 0.02 NG/ML Total Protein 6.9 GM/DL Albumin 3.3 GM/DL Urine Collection Type CATH Urine Color YELLOW Urine Turbidity CLEAR Urine pH 6.5 Urine Specific [place] 1.020 Urine Protein 300 OR GREATER mg/dL Urine Glucose (UA) NEG mg/dL Urine Ketones TRACE mg/dL Urine Occult Blood TRACE Urine Nitrite NEG Urine Bilirubin NEG Urine Leukocyte Esterase NEG Urine RBC 0-3 /hpf Urine Squamous Epithelial 0-5 /hpf Cells Urine Hyaline Casts 6-9 /lpf Microscopic Urinalysis Comment CATH-CULT NOT IND Urine Osmolality 515 MOSM/KG Urine Random Sodium 85 MEQ/L Urine Collection Time 09:24 Uric Acid 3.0 MG/DL Thyroid Stimulating Hormone 1.120 uIU/ML 3rd Gen [facility] Medical Decision Making Medical Screen Exam Complete: Yes Emergency Medical Condition: Yes Medical Record Reviewed: Yes Interpretation(s) ECG shows left anterior fascicular block, sinus rhythm at 95, no ST elevation or depression. Differential Diagnosis sepsis vs CVA vs electrolyte abnormalities vs UTI vs pneumonia Narrative Course Patient is a 76-year-old male who is brought in by his friend due to altered mental status. Patient is quite altered and does not provide much history. IV established, labs sent. Labs concerning for a white blood cell count of 23. Sodium was found to be 118. Patient given small bolus of IV fluids. Patient's blood pressure is markedly elevated, given labetalol. CT abdomen and pelvis performed shows possible small bowel obstruction. NG tube was inserted. The surgery was consult it, Dr. Sosa came to see the patient. Patient given 1 g of Rocephin. Admitted to the ICU. Critical Care Narrative Aggregate critical care time was 35 minutes. Time to perform other separately billable procedures was not included in the critical care time. My time did not include minutes spent treating any other patients simultaneously or on activities that did not directly contribute to the patient's treatment. The services I provided to this patient were to treat and/or prevent clinically significant deterioration that could result in: Serious illness or I provided critical care services requiring my management, as noted below: Chart data review, documentation time, medication orders and management, vital sign assessments/reviewing monitor data, ordering and reviewing lab tests, ordering and interpreting/reviewing x-rays and diagnostic studies, care of the patient and discussion of the patient with the admitting physicians. Diagnosis Primary Impression: Hyponatremia Additional Impressions: Altered mental status Qualified Code: R41.0 - Delirium SBO (small bowel obstruction) Admitting Information Admitting Physician Requests: Admit Ailyn Huang MD Jan 04, 2017 09:05
[2017-01-04 09:07] LABS: AUTOMATED NEUTROPHIL # 20.8 TH/MM3 (1.8-7.7); BASOPHIL % 0.2 % (0.0-2.0); EOSINOPHIL # 0.1 TH/MM3 (0-0.4); EOSINOPHIL % 0.5 % (0.0-4.0); LYMPH % 3.5 % (9.0-44.0); LYMPHOCYTE # 0.8 TH/MM3 (1.0-4.8); MEAN CELL VOLUME 91.6 FL (80.0-100.0); MEAN CORPUSCULAR HEMOGLOBIN 30.8 PG (27.0-34.0); MEAN CORPUSCULAR HGB CONC 33.7 % (32.0-36.0); MONO % 6.9 % (0.0-8.0); NEUT % 88.9 % (16.0-70.0); PLATELET COUNT 657 TH/MM3 (150-450); RED BLOOD COUNT 4.59 MIL/MM3 (4.50-5.90); WHITE BLOOD COUNT 23.3 TH/MM3 (4.0-11.0)
[2017-01-04 09:08] LABS: HEMO FLAGS AUTO DIFF
[2017-01-04] MEDS ORDERED: REGL10TA5 PO (09:10)
[2017-01-04] MEDS ORDERED: BUPR150T3 PO (09:10)
[2017-01-04] MEDS ORDERED: LOSA25TA PO (09:10)
[2017-01-04] MEDS ORDERED: PERC5TAB12 PO (09:10)
[2017-01-04] MEDS ORDERED: TRAM50TA PO (09:10)
[2017-01-04] MEDS: SODIUM CHLORIDE 0.9% FLUSH 10 ML FLUSH IVF PRN ×4 (09:12→13:29)
--- NOTE | 2017-01-04 09:22 | RADHPO ---
EXAM DATE/TIME: 01/04/2017 08:58 [facility] COMPARISON: No previous studies available for comparison. INDICATIONS : Altered mental status. RADIATION DOSE: 40.12 CTDIvol (mGy) MEDICAL HISTORY : Hypertension. SURGICAL HISTORY : None. ENCOUNTER: Initial ACUITY: 1 day PAIN SCALE: 0/10 LOCATION: cranial TECHNIQUE: Multiple contiguous axial images were obtained of the head. Using automated exposure control and adj ustment of the mA and/or kV according to patient size, radiation dose was kept as low as reasonably a chievable to obtain optimal diagnostic quality images. FINDINGS: CEREBRUM: The ventricles are normal for age. No evidence of midline shift, mass lesion, hemorrhage or acute in farction. No extra-axial fluid collections are seen. POSTERIOR FOSSA: The cerebellum and brainstem are intact. The 4th ventricle is midline. The cerebellopontine angle i s unremarkable. EXTRACRANIAL: The visualized portion of the orbits is intact. SKULL: The calvaria is intact. No evidence of skull fracture. CONCLUSION: Unremarkable examination for each. Tyler Nagy MD on January 04, 2017 at 9:19 Board Certified Radiologist. This report was verified electronically.
[2017-01-04] MEDS ORDERED: cefTRIAXone INJ 1,000 MG in SODIUM CHLORIDE 0.9% INJ 100 ML IV ONE (09:30)
[2017-01-04] MEDS ORDERED: LABETALOL HCL 100 MG/20 ML VIAL IV PUSH ONE ×2 (09:30→10:30)
--- NOTE | 2017-01-04 09:31 | RADHPO ---
EXAM DATE/TIME: 01/04/2017 08:59 [facility] COMPARISON: CHEST SINGLE AP, January 02, 2017, 18:19. INDICATIONS : Very short of breath & wheezing. MEDICAL HISTORY : Hypertension. Deep venous thrombosis. SURGICAL HISTORY : Hernia repair. Vasectomy. Right lower extremity vein surgert. ENCOUNTER: Initial ACUITY: 1 day PAIN SCORE: 0/10 LOCATION: chest FINDINGS: A single view of the chest demonstrates the lungs to be symmetrically aerated without evidence of mas s, infiltrate or effusion. The cardiomediastinal contours are unremarkable. Osseous structures are intact. CONCLUSION: No acute disease. There is no evidence of pneumonia. Tyler Nagy MD on January 04, 2017 at 9:29 Board Certified Radiologist. This report was verified electronically.
[2017-01-04 09:34] LABS: BLOOD, URINE TRACE (NEG); GLUCOSE,URINE NEG (NEG); KETONE, URINE TRACE mg/dL (NEG); NITRITE,URINE NEG (NEG); PH, URINE 6.5 (5.0-8.5)
[2017-01-04 09:36] LABS: SCAN/DIFF AUTO DIFF CONFIRMED
[2017-01-04 09:37] LABS: METHOD OF COLLECTION CATH
[2017-01-04 09:38] LABS: URINE COLOR YELLOW (YELLW/STRAW)
[2017-01-04 09:39] LABS: COMMENT (UR) CATH-CULT NOT IND; CULTURE IF INDICATED CATH CULTURE NOT IND; RBC, URINE 0-3 /hpf (0-3); SQUAMOUS EPITHELIAL CELL URINE 0-5 /hpf (0-5)
[2017-01-04 10:11] LABS: ALKALINE PHOSPHATASE 116 U/L (45-117); ALT (GPT) 37 U/L (12-78); AST (GOT) 39 U/L (15-37); BICARBONATE 25.4 MEQ/L (21.0-32.0); BLOOD UREA NITROGEN 13 MG/DL (7-18); CHLORIDE 78 MEQ/L (98-107); CREATINE KINASE 249 U/L (39-308); GLOMERULAR FILTRATION RATE 86 ML/MIN (>89); POTASSIUM 3.8 MEQ/L (3.5-5.1); TOTAL BILIRUBIN ADULT 1.2 MG/DL (0.2-1.0)
[2017-01-04 10:13] LABS: ANION GAP 15 MEQ/L (5-15)
[2017-01-04 10:15] LABS: SODIUM (NA) 118 MEQ/L (136-145)
[2017-01-04 10:18] LABS: APTT (PATIENT) 34.8 SEC (24.3-30.1); INTERNATIONAL NORMALIZED RATIO 1.2 RATIO; PROTHROMBIN TIME - PATIENT 12.8 SEC (9.8-11.6)
[2017-01-04] MEDS ORDERED: IOHEXOL 350 MG/ML 10 ML VIAL (for RAD DIAG) IV ONE (10:48)
[2017-01-04] MEDS ORDERED: MORPHINE SULFATE 4 MG/ML INJ IV PUSH ONE (11:00)
--- NOTE | 2017-01-04 11:05 | RADHPO ---
EXAM DATE/TIME: 01/04/2017 10:32 [facility] COMPARISON: CT ABDOMEN & PELVIS W/O CONTRAST, January 02, 2017, 19:50. INDICATIONS : Abdominal pain. Altered mental status. WBC = 23.3 IV CONTRAST: 80 cc Omnipaque 350 (iohexol) IV ORAL CONTRAST: No oral contrast ingested. RADIATION DOSE: 19.08 CTDIvol (mGy) MEDICAL HISTORY : Hypertension. SURGICAL HISTORY : None. ENCOUNTER: Initial ACUITY: 1 day PAIN SCALE: Non-responsive LOCATION: Abdomen. TECHNIQUE: Volumetric scanning of the abdomen and pelvis was performed. Using automated exposure control and ad justment of the mA and/or kV according to patient size, radiation dose was kept as low as reasonably achievable to obtain optimal diagnostic quality images. FINDINGS: LOWER LUNGS: There are new small pleural effusions right greater than left. LIVER: Homogeneous density without lesion. There is no dilation of the biliary tree. No calcified gallston es. Visualization is limited by motion artifact. SPLEEN: Normal size without lesion. PANCREAS: Within normal limits. KIDNEYS: Normal in size and shape. There is no mass, stone or hydronephrosis. ADRENAL GLANDS: There are new bilateral adrenal masses which were not present on the prior study 2 days ago. On the r ight this measures 3.6 x 2.5 cm in diameter measures 54 Hounsfield units. On the left this measures 2 .5 x 1.4 cm in diameter and measures approximately 47 Hounsfield units in density. VASCULAR: There is no aortic aneurysm. BOWEL/MESENTERY: New abnormal bowel gas pattern. There is moderate dilatation of stomach with large air fluid level. T here are multiple loops of air containing borderline to mildly dilated small bowel with multiple air- fluid levels. There are diverticuli in the colon. The colon is mostly decompressed. The terminal ileu m appears decompressed as well. The is no definite free air or fluid. There is air in the distal esop hagus with questionable mild wall thickening. ABDOMINAL WALL: Within normal limits. RETROPERITONEUM: There is no lymphadenopathy. BLADDER: No wall thickening or mass. A Parada catheter is present in the bladder. REPRODUCTIVE: Within normal limits. INGUINAL: There is no lymphadenopathy or hernia. MUSCULOSKELETAL: Within normal limits for patient age. CONCLUSION: 1. New abnormal bowel gas pattern of concern for distal small bowel obstruction. 2. New bilateral adrenal masses which were not present 2 days ago. The differential includes adrenal hemorrhage and/or hyperplasia. 3. New small pleural effusions right greater than left. 4. Mild diverticulosis. Tyler Nagy MD on January 04, 2017 at 10:52 Board Certified Radiologist. This report was verified electronically.
[2017-01-04] MEDS ORDERED: COSYNTROPIN 0.25 MG VIAL IV PUSH ONE (12:15)
[2017-01-04] MEDS ORDERED: CHLORHEXIDINE GLUCONATE 2 % 1 PACK (2 CLOTHS) TOP PRN (14:45)
[2017-01-04] MEDS ORDERED: ONDANSETRON HCL 4 MG/2 ML VIAL IV PRN (14:45)
[2017-01-04] MEDS ORDERED: ACETAMINOPHEN 325 MG TAB PO PRN (14:45)
[2017-01-04] MEDS ORDERED: MISCELLANEOUS NURSING INFORMATION XX SCH (14:45)
[2017-01-04] MEDS ORDERED: SENNOSIDES 8.6 MG TAB PO PRN (14:45)
[2017-01-04] MEDS ORDERED: SODIUM CHLORIDE 0.9% FLUSH 10 ML FLUSH IV FLUSH PRN (14:45)
--- NOTE | 2017-01-04 15:03 | HHI.HP ---
[facility] Service Critical Care Medicine Primary Care Physician Unknown Admission Diagnosis Small bowel obstruction, AMS, hyponatremia Diagnosis: (1) Thrombocytosis Diagnosis: Principal (2) Depression Diagnosis: Principal (3) Anticoagulant long-term use Diagnosis: Principal (4) Leg wound, right Diagnosis: Principal (5) Hypo-osmolality and hyponatremia Diagnosis: Principal (6) Hyperglycemia Diagnosis: Principal (7) Hypertension Diagnosis: Principal (8) Abdominal pain Diagnosis: Principal (9) DVT (deep venous thrombosis) Diagnosis: Principal (10) Leukocytosis Diagnosis: Principal (11) Distended abdomen Diagnosis: Principal Chief Complaint: Unclear. Abdominal pain and confusion Travel History International Travel<30 Days: No Contact w/Intl Traveler <30 Da: No Traveled to Known Affected Are: No Sepsis Criteria SIRS Criteria (2 or more): Heart rate over 90, WBC > 61757, < 4000 or > 10% bands Sepsis Criteria (SIRS+source): Infect source susp/known History of Present Illness 76-year-old Male. Date of Admission 01/04/2017. 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 This Is 5 x 5 Cm. Covered in Blue Bandage. Patient Presents to [facility] after Being Discharged 01/02 with Altered Mental Status. 01/[address] abdomen pelvis which showed induration of the right kidney possibly past of possible pyelonephritis. UA was negative for infection. 2 cm cyst at the left kidney pole. Sigmoid diverticulosis. Degenerative disc disease lumbar spine. Patient did have a low-sodium 126 at that time.at that time, he was complaining of severe bilateral flank pain. Was associated after eating greasy food at [facility]. Associated with nausea and vomiting Saturday and Saturday prior to admission. He felt better the next morning was sent home on Levaquin. Day, patient was found confused and altered by his roommate this morning. Was transferred to [facility]. CT abdomen and pelvis revealed a right-sided 3.6 x 2.5 cm left 2.5 billable personality adrenal mass. Possible hemorrhage. Dilated esophagus with thickening, and dilated stomach, colon diverticula. Possible small bowel obstruction. NG tube was placed with 800cc brown gastric contents removed. /general surgery was consulted and has seen the patient for possible small bowel obstruction. Patient is room air, hypertensive requiring 40 mg labetalol. Review of Systems Constitutional: COMPLAINS OF: Fatigue, DENIES: Fever, Weight gain Endocrine: DENIES: Polydipsia, Polyuria Eyes: DENIES: Blurred vision, Double Vision Ears, nose, mouth, throat: DENIES: Tinnitus, Ear Pain Respiratory: DENIES: Apneas Cardiovascular: DENIES: Chest pain Gastrointestinal: COMPLAINS OF: Abdominal pain, Nausea, DENIES: Bloody stools , Constipation, Diarrhea, Vomiting Genitourinary: DENIES: Urgency, Hematuria Musculoskeletal: DENIES: Muscle aches, Neck pain Integumentary: DENIES: Abnormal pigmentation Hematologic/lymphatic: COMPLAINS OF: Bruising Immunologic/allergic: DENIES: Eczema Neurologic: DENIES: Headache, Localized weakness Psychiatric: COMPLAINS OF: Anxiety, Confusion, DENIES: Depression Past Family Social History Allergies: Coded Allergies: No Known Allergies (Unverified , 01/02/17) Past Medical History Depression Anxiety Hypertension Chronic Xarelto use Right lower extremity DVT Chronic right lower extremity wound Narcotic use Past Surgical History Right lower extremity vein stripping Vasectomy Hernia repair Reported Medications Reglan 10 mg by mouth 3 times a day Ultram as needed Percocets as needed Xarelto 10 mg by mouth daily Lopressor 25 mg by mouth twice a day Bupropion 150 mg by mouth daily Active Ordered Medications Reviewed in EMR Family History Mother and father Social History Tobacco - he states he still has been occurring.. Alcohol - he denies however documentation of past use. IV drug use - none. Physical Exam Vital Signs Vital Signs Date Time Temp Pulse Resp B/P Pulse Ox O2 Delivery O2 Flow Rate FiO2 01/04/17 14:05 96 22 179/107 96 Room Air 01/04/17 13:12 89 22 170/104 96 Room Air 01/04/17 12:00 95 Room Air 01/04/17 11:47 84 18 166/106 96 Room Air 01/04/17 11:00 85 20 205/98 95 01/04/17 10:54 90 22 175/104 96 Room Air 01/04/17 10:49 94 20 245/117 95 01/04/17 09:51 98.6 83 18 184/110 97 Room Air 01/04/17 09:44 87 18 184/110 98 Room Air 01/04/17 09:13 93 22 196/129 97 Room Air 01/04/17 08:59 97 Room Air 01/04/17 08:59 Room Air 01/04/17 08:35 97 Room Air 01/04/17 08:33 98.6 97 18 196/122 97 Physical Exam GENERAL: 76-year-old male, critically ill currently resting in bed on room air SKIN: Warm and dry. Ecchymotic region to right lower extremity/medial ankle with 5 x [address] Some chronic venous stasis wound HEAD: Atraumatic. Normocephalic. EYES: Pupils equal and round about 3 mm bilaterally and reactive. No scleral icterus. No injection or drainage. ENT: No nasal bleeding or discharge. Mucous membranes pink and moist. NECK: Trachea midline. No JVD. CARDIOVASCULAR: Regular rate and rhythm. S1, S2. No S4. RESPIRATORY: As instructed extremities. Few crackles patient bases.. Breath sounds equal bilaterally. GASTROINTESTINAL: Abdomen protuberant and distended. Nontender. Hypoactive bowel sounds are appreciated MUSCULOSKELETAL: Extremities trace lower extremity edema. Right medial ankle 5 x 5 cm covered in BLUE disc. NEUROLOGICAL: Awake and alert to place and person only. No obvious cranial nerve deficits. Motor grossly within normal limits. Five out of 5 muscle strength in the arms and legs. Normal speech. PSYCHIATRIC: Confused Laboratory Laboratory Tests Test 01/04/17 01/04/17 01/04/17 08:56 09:24 12:21 White Blood Count 23.3 Red Blood Count 4.59 Hemoglobin 14.1 Hematocrit 42.0 Mean Corpuscular Volume 91.6 Mean Corpuscular Hemoglobin 30.8 Mean Corpuscular Hemoglobin 33.7 Concent Red Cell Distribution Width 15.0 Platelet Count 657 Mean Platelet Volume 7.8 Neutrophils (%) (Auto) 88.9 Lymphocytes (%) (Auto) 3.5 Monocytes (%) (Auto) 6.9 Eosinophils (%) (Auto) 0.5 Basophils (%) (Auto) 0.2 Neutrophils # (Auto) 20.8 Lymphocytes # (Auto) 0.8 Monocytes # (Auto) 1.6 Eosinophils # (Auto) 0.1 Basophils # (Auto) 0.0 CBC Comment AUTO DIFF Differential Comment AUTO DIFF CONFIRMED Prothrombin Time 12.8 Prothromb Time International 1.2 Ratio Activated Partial 34.8 Thromboplast Time Sodium Level 118 Potassium Level 3.8 Chloride Level 78 Carbon Dioxide Level 25.4 Anion Gap 15 Blood Urea Nitrogen 13 Creatinine 0.87 Estimat Glomerular Filtration 86 Rate Random Glucose 123 Lactic Acid Level 1.1 Calcium Level 8.9 Total Bilirubin 1.2 Aspartate Amino Transf 39 (AST/SGOT) Alanine Aminotransferase 37 (ALT/SGPT) Alkaline Phosphatase 116 Ammonia 27 Total Creatine Kinase 249 Troponin I LESS THAN 0.02 Total Protein 6.9 Albumin 3.3 Urine Collection Type CATH Urine Color YELLOW Urine Turbidity CLEAR Urine pH 6.5 Urine Specific [place] 1.020 Urine Protein 300 OR GREATER Urine Glucose (UA) NEG Urine Ketones TRACE Urine Occult Blood TRACE Urine Nitrite NEG Urine Bilirubin NEG Urine Leukocyte Esterase NEG Urine RBC 0-3 Urine Squamous Epithelial 0-5 Cells Urine Hyaline Casts 6-9 Microscopic Urinalysis Comment CATH-CULT NOT IND Urine Osmolality 515 Urine Random Sodium 85 Urine Collection Time 09:24 Uric Acid 3.0 Thyroid Stimulating Hormone 1.120 3rd Gen Serum Osmolality 241 Date/Time Procedure Status Source Growth 01/04/17 09:35 Aerobic Blood Culture Received Blood Peripheral Pending 01/04/17 09:35 Anaerobic Blood Culture Received Blood Peripheral Pending Result Diagram: 01/04/17 0856 01/04/17 0856 Imaging Last Impressions Head CT 01/04/17 0848 Signed Impressions: Service Date/Time: Wednesday, January 04, 2017 08:58 - CONCLUSION: Unremarkable examination for each. Tyler Nagy MD Chest X-Ray 01/04/17 0000 Signed Impressions: Service Date/Time: Wednesday, January 04, 2017 08:59 - CONCLUSION: No acute disease. There is no evidence of pneumonia. Tyler Nagy MD Abdomen/Pelvis CT 01/04/17 0000 Signed Impressions: Service Date/Time: Wednesday, January 04, 2017 10:32 - CONCLUSION: 1. New abnormal bowel gas pattern of concern for distal small bowel obstruction. 2. New bilateral adrenal masses which were not present 2 days ago. The differential includes adrenal hemorrhage and/or hyperplasia. 3. New small pleural effusions right greater than left. 4. Mild diverticulosis. Tyler Nagy MD Assessment and Plan Assessment and Plan Neuro/Psych: Acute toxic metabolic encephalopathy History of EtOH Depression/anxiety CT head 01/04 reveals no acute intracranial abnormalities Holding bupropion 150 mg by mouth daily Hold Ultram and Percocets with altered mental status currently Thiamine/folate/multivitamin daily with EtOH use MRI/A brain ordered with altered mental status CV: Hypertension Right lower extremity DVT As needed hydralazine/labetalol/Nitropaste to maintain systolic blood pressure was 160 Home medication of Lopressor 25 mg by mouth twice a day will be held all nothing by mouth Follow up on troponin 0.02.. We'll trend Check right lower extremity Dopplers ultrasound for DVT Resp: Acute respiratory insufficiency Nasal cannula to maintain saturations greater than equal to 92% Incentive spirometry while awake Chest x-ray 01/04 reveals no acute cardiopulmonary findings GI: CT abd/pelvis 01/04 revealed right 3.6 x 2.4 cm and left 2.5 x 1.4 cm adrenal masses. Distal esophagus with thickening. Dilated stomach.: Colonic Diverticuli. Compressed colon. Possible bowel obstruction. Dr. Sosa/general surgery consulted. He has seen the patient Negative ultrasound gallbladder 01/02 Follow-up KUB in a.m. : Parada has been placed for accurate I's and O's in a critically ill patient UA with proteinuria see below Endo: Adrenal mass -bilateral possible hemorrhage See CT abdomen/pelvis results above. Will check MRI abdomen specific adrenal rule out thrombus Cosyntropin test ordered. Results pending Noted hypertensive. Potassium normal. No carotid adrenal insufficiency Sliding-scale insulin with Accu-Cheks to maintain euglycemia/low regimen Renal: Proteinuria Patient states he needed kidney biopsy in past but refused Follow-up a.m. BMP Accurate I's and O's Monitor urine output Heme: Leukocytosis Thrombocytosis Chronic Xarelto use Follow CBC name. Monitor trends. Unknown if infectious etiology. UA negative. ID: Receive 1 dose Rocephin in ED. Previously on Levaquin daily Vancomycin/cefepime day 1 ordered Monitor for infection Pertinent cultures 01/04 - blood cultures 2 - pending 01/04 - UA - negative 01/02 - blood cultures 2 - pending FEN: Hyponatremia - hypoosmolar Sodium osmolarity 241. Urine sodium 85. Check cortisol/cosyntropin test otherwise likely SIADH TSH was 1.12. Uric acid 3.0. Lipid panel ordered MSK: Right lower extremity wound Wound care evaluation Access - Utilize peripheral IV. Central line if indicated Prophylaxis - GI - Protonix - DVT - SCD/holding Xarelto in light of possible adrenal hemorrhage Critical Care: The total critical care time was 55 minutes. Time to perform other separately billable procedures was not included in the critical care time. Problem Qualifiers (1) Depression: (2) Leg wound, right: Qualified Code: S81.801D - Leg wound, right, subsequent encounter (3) Hypertension: Qualified Code: I10 - Essential hypertension Urbano Elliott MD Jan 04, 2017 15:03
[2017-01-04 15:04] LABS: MAGNESIUM 1.7 MG/DL (1.5-2.5)
[2017-01-04] MEDS: RESP: ALBUTEROL 2.5 MG/IPRATROPIUM 0.5 MG NEB (SCH) INH ×3 (15:12→22:42)
[2017-01-04 15:27] LABS: BLOOD GAS BASE EXCESS 0.6 mmol/L (-2-2); BLOOD GAS CARBOXYHEMOGLOBIN 2.4 % (0-4); BLOOD GAS HCO3 24 mmol/L (22-26); BLOOD GAS METHEMOGLOBIN 0.9 % (0-2); BLOOD GAS O2 HGB SATURATION 94 % (90-100); BLOOD GAS OXYGEN CONTENT 17.3 Vol % (12.0-20.0); BLOOD GAS PCO2 33 mmHG (38-42); BLOOD GAS PO2 85 mmHG (61-120); CRITICAL VALUE NO; TEMP CORR TO 98.6
[2017-01-04 15:28] LABS: DRAW SITE RT RADIAL; FIO2 21 %; NUMBER OF ARTERIAL PUNCTURES 1; OXYGEN DEVICE RA; STAT NO; ULNAR PULSE PRESENT
[2017-01-04] MEDS ORDERED: NITROGLYCERIN 2% OINT 1 GM PACKET TOPICAL PRN (15:30)
[2017-01-04] MEDS: SODIUM CHLOR 0.9% 1000 ML INJ 1,000 ML IV SCH (15:35)
[2017-01-04] MEDS ORDERED: Vancomycin Consult Pharmacy 1 EA OTHER SCH (16:00)
[2017-01-04] MEDS ORDERED: THIAMINE INJ 100 MG in SODIUM CHLORIDE 0.9% INJ 100 ML IV ONE (16:00)
[2017-01-04 16:20] LABS: AMPHETAMINE, URINE NEG (NEG); BARBITURATES, URINE NEG (NEG); COCAINE, URINE NEG (NEG)
[2017-01-04] MEDS: MAGNESIUM SULFATE 1 GM PREMIX 100 ML IV SCH ×2 (17:00→17:50)
[2017-01-04] MEDS: LABETALOL HCL 100 MG/20 ML VIAL IV PUSH PRN (17:50)
[2017-01-04] MEDS: CEFEPIME INJ 2,000 MG in SODIUM CHLORIDE 0.9% INJ 100 ML IV SCH (17:50)
[2017-01-04] MEDS: ARTIFICIAL TEARS OPTH SOLN 15 ML BTL EACH EYE SCH (18:00)
[2017-01-04] MEDS: VANCOMYCIN INJ 1,250 MG in SODIUM CHLOR 0.9% 250 ML INJ 250 ML IV SCH (18:00)
[2017-01-04] MEDS ORDERED: DEXTROSE 50% IN WATER 50 ML VIAL(D50) IV PUSH PRN (19:15)
[2017-01-04] MEDS ORDERED: GLUCAGON 1 MG/ML VIAL OTHER PRN (19:15)
--- NOTE | 2017-01-04 20:18 | RADHPO ---
EXAM DATE/TIME: 01/04/2017 18:55 [facility] COMPARISON: No previous studies available for comparison. INDICATIONS : Bilateral leg swelling. MEDICAL HISTORY : Hypertension. Small bowel obstruction. Altered mental status. SURGICAL HISTORY : Unable to obtain. ENCOUNTER: Initial ACUITY: 1 day PAIN SCORE: Non-responsive LOCATION: Bilateral legs. TECHNIQUE: Venous ultrasound of the left and right leg was performed from the inguinal ligament to the proximal calf. Real-time, color Doppler and spectral tracing, compression and augmentation techniques were us ed. FINDINGS: RIGHT LEG: There is nonocclusive thrombus in the right superficial femoral, popliteal, and peroneal veins. The c ommon femoral vein is patent. Prominent lymph nodes are seen in the right inguinal region. LEFT LEG: There is normal compressibility of the deep venous system from the inguinal region to the proximal ca lf. No echogenic clot is seen in the lumen of the common femoral, femoral, popliteal, and posterior tibial veins. There is a normal response of the venous system to proximal and distal augmentation an d respiration. CONCLUSION: Partially occlusive thrombus in the right superficial femoral, popliteal and peroneal veins. No throm bus is seen on the left side. Santos Whitley MD on January 04, 2017 at 20:14 Board Certified Radiologist. This report was verified electronically.
[2017-01-04] MEDS ORDERED: LIDOCAINE HCL 2% 100 MG/5 ML SYRINGE ONE (20:24)
[2017-01-04] MEDS ORDERED: EPINEPHrine HCL (1:10,000) 1 MG/10 ML SYRINGE ONE (20:24)
[2017-01-04] MEDS ORDERED: ATROPINE SULFATE 1 MG/10 ML SYRINGE ONE (20:25)
[2017-01-04] MEDS: INSULIN NovoLIN REGULAR SUPPLEMENTAL SCALE SQ SCH (21:00)
[2017-01-04] MEDS: SODIUM CHLORIDE 0.9% FLUSH 10 ML FLUSH IV FLUSH SCH (21:00)
[2017-01-04] MEDS: DOCUSATE SODIUM 100 MG CAP PO SCH (21:00)
--- NOTE | 2017-01-04 21:39 | RADRPT ---
EXAM DATE/TIME: 01/04/2017 20:49 [facility] COMPARISON: No previous studies available for comparison. INDICATIONS : Wheezing. RADIATION DOSE: 17.45 CTDIvol (mGy) MEDICAL HISTORY : Non-responsive. SURGICAL HISTORY : Non-responsive. ENCOUNTER: Initial ACUITY: 1 day PAIN SCORE: Non-responsive LOCATION: Neck TECHNIQUE: Volumetric scanning of the neck was performed. Using automated exposure control and a djustment of the mA and/or kV according to patient size, radiation dose was kept as low as reasonably achievable to obtain optimal diagnostic quality images. FINDINGS: The oropharynx and hypopharynx appear distended. The cords appear possibly thickened. The subglottic portion of the trachea appears normal. There is an NG tube in place. The sinuses appear clear. The orbits appear clear. Significant areas of adenopathy are not clearly appreciated on this noncontrast CT examination. Distinct masses are not clearly seen. CONCLUSION: Questionable thickening of the vocal cords. These can be directly inspected. Otherw ise the study appears grossly normal for a noncontrast CT of the neck. Santos Whitley MD on January 04, 2017 at 21:29 Board Certified Radiologist. This report was verified electronically.
--- NOTE | 2017-01-04 21:42 | RADRPT ---
EXAM DATE/TIME: 01/04/2017 20:50 [facility] COMPARISON: CT ABDOMEN & PELVIS W CONTRAST, January 04, 2017, 10:32. INDICATIONS : Wheezing. RADIATION DOSE: 7.45 CTDIvol (mGy) MEDICAL HISTORY : Non-responsive. SURGICAL HISTORY : Non-responsive. ENCOUNTER: Initial ACUITY: 1 day PAIN SCALE: Non-responsive LOCATION: Chest TECHNIQUE: Volumetric scanning of the chest was performed. Using automated exposure control and adjustment of the mA and/or kV according to patient size, radiation dose was kept as low as reasonab ly achievable to obtain optimal diagnostic quality images. FINDINGS: There are mild bilateral pleural effusions being worse on the right than the left. Ther e are areas of increased density identified at the posterior lung bases bilaterally likely representi ng areas of atelectasis or consolidation. The lungs are otherwise grossly clear. The mediastinal st ructures are grossly intact. Coronary artery calcifications are present. An NG tube is in place wit h its tip directed into the stomach. There does appear to be dilated small bowel in the upper abdomen seen best on the implant polisher image. The b marc structures are grossly intact. CONCLUSION: 1. Mild bilateral pleural effusions with suspected accompanying areas of atelectasis or consolidation at the lung bases. 2. Coronary artery calcifications. Santos Whitley MD on January 04, 2017 at 21:33 Board Certified Radiologist. This report was verified electronically.
[2017-01-04] MEDS: HYDROCORTISONE SOD SUCCINATE 100 MG VIAL IV PUSH SCH (23:09)
[2017-01-04] MEDS: hydrALAZINE HCL 20 MG/ML VIAL IV PUSH PRN (23:09)
[2017-01-05] VITALS (19 sets, daily range): BP systolic 77–168; BP diastolic 48–96; PULSE 86–114; RESP 14–34; TEMP 97.6–100.8; O2SAT 94–100
[2017-01-05] MEDS ORDERED: PROPOFOL 1000 MG/100 ML INJ 100 ML ONE (00:09)
[2017-01-05] MEDS ORDERED: ETOMIDATE 40 MG/20 ML VIAL ONE (00:09)
[2017-01-05] MEDS ORDERED: 3% SALINE INJ 250 ML IV ONE ×2 (00:15→06:30)
[2017-01-05] MEDS ORDERED: MIDAZOLAM HCL 5 MG/ML VIAL (1 ML) IV ONE (00:15)
[2017-01-05] MEDS ORDERED: PROPOFOL 1000 MG/100 ML INJ 100 ML IV SCH (00:15)
[2017-01-05] MEDS ORDERED: MIDAZOLAM 100 MG/NS 100 ML DRIP Premix IV SCH (00:15)
[2017-01-05] MEDS ORDERED: ACETAMINOPHEN 1000 MG/100 ML VIAL IV ONE (00:15)
[2017-01-05] MEDS ORDERED: MIDAZOLAM HCL 5 MG/ML VIAL (1 ML) ONE (00:15)
[2017-01-05] MEDS ORDERED: ROCURONIUM INJ 100 MG/10 ML VIAL IV ONE (00:15)
--- NOTE | 2017-01-05 00:22 | RADRPT ---
EXAM DATE/TIME: 01/04/2017 21:19 [facility] COMPARISON: CT BRAIN W/O CONTRAST, January 04, 2017, 8:58. INDICATIONS : TIA. MEDICAL HISTORY : Hypertension. Deep venous thrombosis. SURGICAL HISTORY : Vasectomy. Hernia repair. ENCOUNTER: Subsequent ACUITY: 1 day PAIN SCORE: 5/10 LOCATION: cranial TECHNIQUE: Multiplanar, multisequence MRI of the brain was performed without contrast. FINDINGS: CEREBRUM: The ventricles are normal for age. No evidence of midline shift, mass lesion, hemorrhage or acute in farction. No extraaxial fluid collections are seen. The pituitary gland and suprasellar cistern are normal in configuration. WHITE MATTER: A few sub-5 mm foci of flair signal abnormality seen in the white matter of both cerebral hemispheres . POSTERIOR FOSSA: The cerebellum and brainstem are intact. The 4th ventricle is midline. The cerebellopontine angle is unremarkable. The cerebellar tonsils are normal in position. DIFFUSION IMAGING: No focal areas of restricted diffusion are seen. No evidence of acute infarction. EXTRACRANIAL: The visualized portions of the orbits and paranasal sinuses are unremarkable. CONCLUSION: Atrophy and mild chronic white matter changes. No acute infarct or other acute intracranial abnormali ty. Santos Arce MD on January 05, 2017 at 0:17 Board Certified Radiologist. This report was verified electronically.
[2017-01-05] MEDS ORDERED: FUROSEMIDE 40 MG/4 ML VIAL ONE (00:24)
[2017-01-05 00:54] LABS: BLOOD GAS BASE EXCESS 1.8 mmol/L (-2-2); BLOOD GAS CARBOXYHEMOGLOBIN 1.9 % (0-4); BLOOD GAS HCO3 25 mmol/L (22-26); BLOOD GAS METHEMOGLOBIN 0.8 % (0-2); BLOOD GAS O2 HGB SATURATION 97 % (90-100); BLOOD GAS OXYGEN CONTENT 15.9 Vol % (12.0-20.0); BLOOD GAS PCO2 33 mmHg (38-42); BLOOD GAS PO2 154 mmHg (61-120); BLOOD GAS TOTAL HGB 11.5 G/DL (12.0-16.0); TEMP CORR TO 98.6
[2017-01-05 00:55] LABS: CRITICAL VALUE NO; DRAW SITE ALINE; FIO2 50 %; OXYGEN DEVICE VENTILATOR; STAT YES; ULNAR PULSE PRESENT; VENT SETTINGS PRVC16/500/1.0/+5
--- NOTE | 2017-01-05 01:06 | PD.PROCEDR ---
Procedure Note Procedure DX: Hypoxemic Respiratory Failure (J96.01), Bronchospasm OP: 1. Orotracheal Intubation (66722) 2. Insertion Central Venous Line, Left subclavian (84751) 3. Insertion Left radial arterial line (37982) Procedure: Bag mask ventilation for respiratory distress, sats easily maintained > 90%. Versed 5 mg and rocuronium 100 mg IV. Intubated orally with 8.0 tube. Position confirmed with CO2 detection, breath sounds, sats 100%. Left chest prepped and draped. Left subclavian vein cannulated and wire easily advanced. Catheter passed over wire to 18 cm. Lumens aspirated and flushed. Dressing applied. Bernard test normal left hand. Left wrist supinated, prepped and draped. Left radial artery cannulated with22 gauge needle and wire advanced. Cannula passed over wire to 3 cm. Good waveform obtained. Dressing applied. Kingsley Alba MD Jan 05, 2017 01:06
[2017-01-05] MEDS: LABETALOL HCL 100 MG/20 ML VIAL IV PUSH PRN (01:10)
--- NOTE | 2017-01-05 01:19 | HHI.CCPN ---
Subjective Remarks/Hospital Course 76-year-old Male. Date of Admission 01/04/2017. 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 This Is 5 x 5 Cm. Covered in Blue Bandage. Patient Presents to [facility] after Being Discharged 01/02 with Altered Mental Status. 01/[address] abdomen pelvis which showed induration of the right kidney possibly past of possible pyelonephritis. UA was negative for infection. 2 cm cyst at the left kidney pole. Sigmoid diverticulosis. Degenerative disc disease lumbar spine. Patient did have a low-sodium 126 at that time.at that time, he was complaining of severe bilateral flank pain. Was associated after eating greasy food at [facility]. Associated with nausea and vomiting Saturday and Saturday prior to admission. He felt better the next morning was sent home on Levaquin. Day, patient was found confused and altered by his roommate this morning. Was transferred to [facility]. CT abdomen and pelvis revealed a right-sided 3.6 x 2.5 cm left 2.5 adrenal mass. Possible hemorrhage. Dilated esophagus with thickening, and dilated stomach, colon diverticula. Possible small bowel obstruction. NG tube was placed with 800cc brown gastric contents removed. /general surgery was consulted and has seen the patient for possible small bowel obstruction. Patient is room air, hypertensive requiring 40 mg labetalol. 01/05: Patient more agitated with fever 102, tachycardia worse, and diffuse wheezing, labored respiratory effort. Na 116. Received 100 ml 3% saline, lasix 40 mg, intubation and ventilation. Head CT and MRI normal aside from atrophy. Objective Vital Signs Date Time Temp Pulse Resp B/P Pulse Ox O2 Delivery O2 Flow Rate FiO2 01/05/17 00:25 100 50 01/04/17 22:00 96 01/04/17 20:00 100.5 35 144/90 01/04/17 19:00 Room Air Intake and Output 01/04/17 01/04/17 01/05/17 08:00 16:00 00:00 Intake Total 600 ml 909 ml Output Total 700 ml 925 ml Balance -100 ml -16 ml Result Diagram: 01/04/17 0859 01/04/17 9138 Other Results Microbiology Date/Time Procedure Status Source Growth 01/04/17 09:24 Legionella Antigen - Final Complete Urine Catheterized Urine PRESUMPTIVE NEGATIVE FOR LEGIONELLA P... 01/04/17 09:24 Streptococcus pneumoniae Antigen (M - Final Complete Urine Catheterized Urine PRESUMPTIVE NEGATIVE FOR STREPTOCOCCU... 01/04/17 15:05 Influenza Types A,B Antigen (SAMANTHA) - Final Complete Nasal Aspirate NEGATIVE FOR FLU A AND B ANTIGEN.... Laboratory Tests Test 01/04/17 01/05/17 15:20 00:45 Blood Gas Puncture Site RT RADIAL SANDRA Blood Gas Patient Temperature 98.6 98.6 Blood Gas HCO3 24 mmol/L 25 mmol/L (22-26) (22-26) Blood Gas Base Excess 0.6 mmol/L 1.8 mmol/L (-2-2) (-2-2) Blood Gas Oxygen Saturation 94 % (90-100) 97 % (90-100) Arterial Blood pH 7.48 7.49 (7.380-7.420) (7.380-7.420) Arterial Blood Partial 33 mmHG (38-42) 33 mmHg (38-42) Pressure CO2 Arterial Blood Partial 85 mmHG 154 mmHg Pressure O2 (61-120) (61-120) Arterial Blood Oxygen Content 17.3 Vol % 15.9 Vol % (12.0-20.0) (12.0-20.0) Arterial Blood 2.4 % (0-4) 1.9 % (0-4) Carboxyhemoglobin Arterial Blood Methemoglobin 0.9 % (0-2) 0.8 % (0-2) Blood Gas Hemoglobin 13.0 G/DL 11.5 G/DL (12.0-16.0) (12.0-16.0) Oxygen Delivery Device RA VENTILATOR Blood Gas Inspired Oxygen 21 % 50 % Blood Gas Ventilator Setting PRVC16/500/1.0/+5 Imaging Last Impressions Head CT 01/04/17 0848 Signed Impressions: Service Date/Time: Wednesday, January 04, 2017 08:58 - CONCLUSION: Unremarkable examination for each. Tyler Nagy MD Chest X-Ray 01/04/17 0000 Signed Impressions: Service Date/Time: Wednesday, January 04, 2017 08:59 - CONCLUSION: No acute disease. There is no evidence of pneumonia. Tyler Nagy MD Abdomen/Pelvis CT 01/04/17 0000 Signed Impressions: Service Date/Time: Wednesday, January 04, 2017 10:32 - CONCLUSION: 1. New abnormal bowel gas pattern of concern for distal small bowel obstruction. 2. New bilateral adrenal masses which were not present 2 days ago. The differential includes adrenal hemorrhage and/or hyperplasia. 3. New small pleural effusions right greater than left. 4. Mild diverticulosis. Tyler Nagy MD Objective Remarks GENERAL: 76-year-old male, critically ill and agitated SKIN: Warm, flushed, damp. Ecchymotic region to right lower extremity/medial ankle with 5 x [address] Some chronic venous stasis wound HEAD: Atraumatic. Normocephalic. EYES: Pupils equal and round about 4 mm bilaterally and minimally reactive. ENT: No nasal bleeding or discharge. Mucous membranes pink and moist. NECK: Trachea midline. No stridor but transmitted wheezes. CARDIOVASCULAR: Regular rate and rhythm. S1, S2. No S4. rate 130s, +JVD. RESPIRATORY: Severe diffuse wheezing. GASTROINTESTINAL: Abdomen remains protuberant and distended. No guarding. Nontender. Hypoactive bowel sounds are appreciated MUSCULOSKELETAL: Extremities trace lower extremity edema. Right medial ankle 5 x 5 cm covered in BLUE disc. Clammy. NEUROLOGICAL: Completely confused and agitated. Moves 4 limbs. Pupils dilated. No rigidity or clonus. PSYCHIATRIC: Confused A/P Assessment and Plan Neuro/Psych: Acute toxic metabolic encephalopathy History of EtOH Depression/anxiety CT head 01/04 reveals no acute intracranial abnormalities Holding bupropion 150 mg by mouth daily Hold Ultram and Percocets with altered mental status currently Thiamine/folate/multivitamin daily with EtOH use MRI/A brain ordered with altered mental status Looks like ETOH or drug withdrawal. CV: Hypertension Right lower extremity DVT As needed hydralazine/labetalol/Nitropaste to maintain systolic blood pressure was 160 Home medication of Lopressor 25 mg by mouth twice a day will be held all nothing by mouth Follow up on troponin 0.02.. We'll trend Check right lower extremity Dopplers ultrasound for DVT Resp: Acute respiratory insufficiency Nasal cannula to maintain saturations greater than equal to 92% Incentive spirometry while awake Chest x-ray 01/04 reveals no acute cardiopulmonary findings Required intubation 01/05 for labored breathing due to bronchospasm. GI: CT abd/pelvis 01/04 revealed right 3.6 x 2.4 cm and left 2.5 x 1.4 cm adrenal masses. Distal esophagus with thickening. Dilated stomach.: Colonic Diverticuli. Compressed colon. Possible bowel obstruction. Dr. Sosa/general surgery consulted. He has seen the patient Negative ultrasound gallbladder 01/02 Follow-up KUB in a.m. : Parada has been placed for accurate I's and O's in a critically ill patient UA with proteinuria see below Endo: Adrenal mass -bilateral possible hemorrhage See CT abdomen/pelvis results above. Will check MRI abdomen specific adrenal rule out thrombus Cosyntropin test ordered. Results pending Noted hypertensive. Potassium normal. No carotid adrenal insufficiency Sliding-scale insulin with Accu-Cheks to maintain euglycemia/low regimen Renal: Proteinuria Patient states he needed kidney biopsy in past but refused Follow-up a.m. BMP Accurate I's and O's Monitor urine output Heme: Leukocytosis Thrombocytosis Chronic Xarelto use Follow CBC name. Monitor trends. Unknown if infectious etiology. UA negative. ID: Receive 1 dose Rocephin in ED. Previously on Levaquin daily Vancomycin/cefepime day 2 ordered Monitor for infection Pertinent cultures 01/04 - blood cultures 2 - pending 01/04 - UA - negative 01/02 - blood cultures 2 - pending FEN: Hyponatremia - hypoosmolar Serum osmolarity 241. Urine sodium 85. Check cortisol/cosyntropin test otherwise likely SIADH TSH was 1.12. Uric acid 3.0. Lipid panel ordered. Bolused with 3% 100 ml X 1 due to severe agitation and Na 116 now MSK: Right lower extremity wound Wound care evaluation Access - Utilize peripheral IV. Central line if indicated Prophylaxis - GI - Protonix - DVT - SCD/holding Xarelto in light of possible adrenal hemorrhage Overall impression: Critically ill with sudden deterioration associated with new fever and lower sodium. Required emergency intubation and ventilation for respiratory failure. Prognosis guarded, continues to deteriorate. Kingsley Alba MD Jan 05, 2017 01:19
--- NOTE | 2017-01-05 01:27 | RADRPT ---
EXAM DATE/TIME: 01/05/2017 01:01 [facility] COMPARISON: CHEST SINGLE AP, January 04, 2017, 8:59. INDICATIONS : Post intubation. Central line placement. MEDICAL HISTORY : Hypertension. SURGICAL HISTORY : None. ENCOUNTER: Subsequent ACUITY: 3 days PAIN SCORE: Non-responsive. LOCATION: Bilateral chest FINDINGS: Mild bibasilar atelectasis developing. No large effusion seen. No pneumothorax. Heart size stable, within normal limits. Patient is now intubated. The endotracheal tube tip is approximately 3 cm above the gianfranco. There is a new nasogastric tube, courses into the stomach. There is a new left subclavian central venous chaitanya ter with tip in the superior vena cava. CONCLUSION: Mild bibasilar atelectasis. Appropriately positioned lines and tubes as above. Santos Arce MD on January 05, 2017 at 1:24 Board Certified Radiologist. This report was verified electronically.
[2017-01-05] MEDS: SODIUM CHLOR 0.9% 1000 ML INJ 1,000 ML IV SCH ×2 (02:33→14:28)
[2017-01-05 03:44] LABS: AUTOMATED NEUTROPHIL # 23.5 TH/MM3 (1.8-7.7); BASOPHIL % 0.1 % (0.0-2.0); EOSINOPHIL # 0.1 TH/MM3 (0-0.4); EOSINOPHIL % 0.5 % (0.0-4.0); HEMATOCRIT 34.4 % (39.0-51.0); HEMO FLAGS DIFF FINAL; LYMPH % 2.5 % (9.0-44.0); LYMPHOCYTE # 0.6 TH/MM3 (1.0-4.8); MEAN CELL VOLUME 86.4 FL (80.0-100.0); MEAN CORPUSCULAR HEMOGLOBIN 30.4 PG (27.0-34.0); MEAN CORPUSCULAR HGB CONC 35.2 % (32.0-36.0); MONO % 4.3 % (0.0-8.0); NEUT % 92.6 % (16.0-70.0); PLATELET COUNT 457 TH/MM3 (150-450); RED BLOOD COUNT 3.98 MIL/MM3 (4.50-5.90); RED CELL DISTRIBUTION WIDTH 15.4 % (11.6-17.2); WHITE BLOOD COUNT 25.4 TH/MM3 (4.0-11.0)
[2017-01-05] MEDS: RESP: ALBUTEROL 2.5 MG/IPRATROPIUM 0.5 MG NEB (SCH) INH ×5 (03:58→22:06)
[2017-01-05 03:59] LABS: INTERNATIONAL NORMALIZED RATIO 1.2 RATIO; PROTHROMBIN TIME - PATIENT 13.5 SEC (9.8-11.6)
[2017-01-05] MEDS: CHLORHEXIDINE GLUCONATE 2 % 1 PACK (2 CLOTHS) TOP SCH (04:00)
[2017-01-05 04:06] LABS: ALKALINE PHOSPHATASE 104 U/L (45-117); ALT (GPT) 36 U/L (12-78); ANION GAP 13 MEQ/L (5-15); AST (GOT) 45 U/L (15-37); BICARBONATE 24.5 MEQ/L (21.0-32.0); BLOOD UREA NITROGEN 16 MG/DL (7-18); CHLORIDE 80 MEQ/L (98-107); GLOMERULAR FILTRATION RATE 84 ML/MIN (>89); MAGNESIUM 1.8 MG/DL (1.5-2.5); POTASSIUM 3.4 MEQ/L (3.5-5.1); TOTAL BILIRUBIN ADULT 1.1 MG/DL (0.2-1.0)
[2017-01-05 04:08] LABS: CREATINE KINASE 206 U/L (39-308)
[2017-01-05 04:12] LABS: SODIUM (NA) 117 MEQ/L (136-145)
[2017-01-05 04:25] LABS: CKMB 5.9 NG/ML (0.5-3.6)
[2017-01-05] MEDS ORDERED: TERBUTALINE INJ 1 MG/ML AMP SQ PRN (04:30)
[2017-01-05] MEDS: fentaNYL DRIP 250 ML IV SCH ×2 (04:44→19:26)
[2017-01-05] MEDS: CEFEPIME INJ 2,000 MG in SODIUM CHLORIDE 0.9% INJ 100 ML IV SCH ×2 (04:44→16:00)
[2017-01-05] MEDS: LORazepam 2 MG/ML VIAL IV PUSH SCH ×4 (04:44→21:53)
[2017-01-05] MEDS: PHENYLEPHRINE INJ 80 MG in DEXTROSE 5% IN WATE 500 ML INJ 492 ML IV SCH ×2 (05:08)
[2017-01-05] MEDS: HYDROCORTISONE SOD SUCCINATE 100 MG VIAL IV PUSH SCH ×3 (05:47→21:08)
[2017-01-05] MEDS: INSULIN NovoLIN REGULAR SUPPLEMENTAL SCALE SQ SCH ×4 (06:35→21:00)
[2017-01-05] MEDS: VANCOMYCIN INJ 1,250 MG in SODIUM CHLOR 0.9% 250 ML INJ 250 ML IV SCH ×2 (06:41→18:20)
[2017-01-05] MEDS: CHLORHEXIDINE 0.12% (ORAL KIT) 15 ML CUP MT SCH ×2 (08:00→20:00)
[2017-01-05] MEDS: SODIUM CHLORIDE 0.9% FLUSH 10 ML FLUSH IV FLUSH SCH ×2 (09:00→21:09)
[2017-01-05] MEDS: ARTIFICIAL TEARS OPTH SOLN 15 ML BTL EACH EYE SCH ×3 (09:00→18:00)
[2017-01-05] MEDS: THIAMINE INJ 100 MG in SODIUM CHLORIDE 0.9% INJ 100 ML IV SCH (09:00)
[2017-01-05] MEDS: PANTOPRAZOLE SODIUM 40 MG VIAL IV SCH (09:09)
[2017-01-05] MEDS: DOCUSATE SODIUM 100 MG CAP PO SCH ×2 (09:10→21:00)
[2017-01-05] MEDS: MULTIVITAMIN TAB PO SCH (09:10)
[2017-01-05] MEDS: FOLIC ACID 1 MG TAB PO SCH (09:10)
[2017-01-05] MEDS: MIDAZOLAM 100 MG/ML INJ 100 ML IV SCH ×2 (09:30→22:39)
[2017-01-05] MEDS ORDERED: METOPROLOL TARTRATE 5 MG/5 ML VIAL ONE (10:21)
--- NOTE | 2017-01-05 10:55 | MB ---
cc: KITTYLULYRITA DATE OF CONSULTATION: 01/05/2017. REASON FOR CONSULTATION: Abdominal distention, possible small bowel obstruction. PERSON REQUESTING CONSULTATION: Dr. Huang, emergency room physician. HISTORY OF PRESENT ILLNESS: The patient is a 76-year-old male who was seen at [facility] with altered mental status. The patient underwent evaluation and was found to have a distended abdomen. Further workup did show dilated small bowel loops and the patient underwent CT scan of the pelvis which showed abnormal bowel gas pattern. The patient was recently discharged from [facility] during which time he was admitted by Dr. Tyler Swanson for bilateral flank pain on anticoagulation. He had some nausea and vomiting at that time; however, did complain of abdominal pain. He was found to have nephritis, elevated white blood cell count and this was thought to be a renal infection or possible recently passed stone. The gallbladder ultrasound at that time was negative. The patient did improve and was discharged home at that time. Due to the patient's altered mental status, the patient is a poor historian. REVIEW OF SYSTEMS: Unable to obtain due to patient with altered mental status. PAST MEDICAL HISTORY: History is obtained from the record: 1. Hypertension. 2. Right lower extremity DVT on chronic Xarelto therapy. PAST SURGICAL HISTORY: 1. Vasectomy. ALLERGIES: NO KNOWN DRUG ALLERGIES. MEDICATIONS: 1. Xarelto. 2. Reglan. 3. Ultram. 4. Percocet. 5. Lopressor. 6. Bupropion. SOCIAL HISTORY: The patient uses tobacco but denies alcohol or illicit drug use per the record. PHYSICAL EXAMINATION: VITAL SIGNS: Temperature 98.6 degrees, heart rate 83, blood pressure 184/110. The patient is 97% on room air. GENERAL: Patient is a well-developed, well-nourished male in no acute distress. HEAD, EYES, EARS, NOSE, THROAT: Head is normocephalic and atraumatic. Pupils equal, round and reactive to light. The sclerae are nonicteric. The mucous membranes are moist. NECK: The neck is supple. No jugular venous distention. LUNGS: Breath sounds are present bilaterally. Nonlabored breathing pattern. HEART: Regular rate and rhythm. ABDOMEN: Abdomen is mildly distended, tympanic, nontender to palpation. No rebound tenderness or guarding. BACK: No costovertebral angle tenderness. EXTREMITIES: No cyanosis, clubbing or edema. NEUROLOGIC: The patient is awake, alert and appropriate however not a good historian, just will not answer questions. Nonfocal neurologic exam. Cranial nerves II through XII are grossly intact but not cooperating with the exam. LABORATORY FINDINGS: White blood cell count 23.3, hemoglobin 14.1. IMAGING STUDIES: Dilated bowel pattern. CT head is negative. ASSESSMENT: The patient is a 76-year-old male with acute altered mental status and likely bilateral adrenal hemorrhage from Xarelto. The patient has no obvious surgical scars and only has a history of vasectomy; therefore, a small bowel obstruction would be unlikely. Review of the CT scan does not show any significant transition point or decompressed bowel and again this would be more consistent with an ileus. The patient either has small bowel obstruction versus ileus would favor ileus due to his other medical issues secondarily causing ileus rather than a small bowel obstruction causing this presentation which would be highly unlikely in a 24-hour period since his discharge. I do agree with medical management, intensive care consultation and continued supportive care. Likely this is a secondary ileus to medical disease. This should resolve once his medical condition improves; however, if the patient does fail to resolve his ileus, further testing such as repeat CT scan or small bowel follow through could be performed. We will follow along with this patient. Thank you very much for this consultation. MD MAXX Gamez/SHARATH /9:05 PM /10:37 AM MARCELL
[2017-01-05 12:59] LABS: CREATINE KINASE 123 U/L (39-308)
[2017-01-05 13:05] LABS: SODIUM (NA) 120 MEQ/L (136-145)
--- NOTE | 2017-01-05 15:30 | RADRPT ---
EXAM DATE/TIME: 01/05/2017 14:37 [facility] COMPARISON: CT ABDOMEN & PELVIS W/O CONTRAST, January 02, 2017, 19:50. CT ABDOMEN & PELVIS W CONTRAST, January 04 017, 10:32. CT THORAX W/O CONTRAST, January 04, 2017, 20:50. INDICATIONS : Adrenal mass. MEDICAL HISTORY : None. SURGICAL HISTORY : None. ENCOUNTER: Initial ACUITY: 1 day PAIN SCORE: 0/10 LOCATION: Abdomen TECHNIQUE: Multiplanar, multisequence magnetic resonance imaging of the abdomen was performed without contrast. FINDINGS: Small bilateral pleural effusions and bibasilar atelectasis and/or infiltrate are identified. Approxi mate 2 cm cyst is present in the left kidney. There is a small approximately 1.3 cm pericardial lymph node on the right side benign in appearance. The liver, spleen, pancreas and the rest of the kidneys appear intact. There are masslike areas within bilateral adrenal glands which appear to have develop ed since 01/02/2017 CT abdomen and pelvis. On the right side part of it demonstrates fluid signal inte nsity on the left side is inhomogeneous. There is no evidence for any significant nulling of the sign al on the chemical shift imaging. Slight strandy densities present within bilateral perinephric space s. CONCLUSION: The bilateral adrenal masses have developed since the CT abdomen from 01/02/2017 and the most likely e tiologies includes bilateral adrenal hemorrhage or possibly reactive hyperplasia. The exact etiology is not certain. Esperanza Odell MD on January 05, 2017 at 15:16 Board Certified Radiologist. This report was verified electronically.
--- NOTE | 2017-01-05 15:31 | RADRPT ---
EXAM DATE/TIME: 01/05/2017 14:37 [facility] COMPARISON: MRI BRAIN W/O CONTRAST, January 04, 2017, 21:19. INDICATIONS : Altered mental status. MEDICAL HISTORY : None. SURGICAL HISTORY : None. ENCOUNTER: Initial ACUITY: 1 day PAIN SCORE: 0/10 LOCATION: cranial Please note a normal MRA of the brain does not entirely exclude the possibility of a small aneurysm, nor the possibility of distal intracranial vessel disease. TECHNIQUE: 3D time of flight MRA was performed. Source images, multiplanar STS MIP, and 3D volume MIP reconstru ctions were reviewed. FINDINGS: There is excellent visualization of the major intracranial arteries out to the second-order branch ve ssels. There is no evidence for aneurysm, vessel truncation or stenosis, and no evidence for vascula r malformation. CONCLUSION: Normal examination. Esperanza Odell MD on January 05, 2017 at 15:28 Board Certified Radiologist. This report was verified electronically.
[2017-01-05] MEDS: SODIUM CHLORIDE 23.4% INJ 188 MEQ in SODIUM CHLOR 0.9% 1000 ML INJ 1,000 ML IV SCH (18:00)
--- NOTE | 2017-01-05 18:58 | EKG ---
Date Performed: 01/05/2017 Time Performed: 09:21:40 PTAGE: 76 years EKG: Sinus tachycardia with very frequent PAC(s) Left anterior fascicular block Borderline ECG PREVIOUS TRACING : 01/04/2017 08.29 Compared to the previous tracing frequent PACs present DOCTOR: Bhanu Marte Interpretating Date/Time 01/05/2017 18:56:59
--- NOTE | 2017-01-05 19:32 | EKG ---
Date Performed: 01/04/2017 Time Performed: 08:29:00 PTAGE: 76 years EKG: Sinus rhythm Possible left atrial abnormality Left anterior fascicular block Poor R wave progression - cannot rul e out septal infarct Abnormal ECG PREVIOUS TRACING : 01/02/2017 18.20 Compared to prior tracing no significant change DOCTOR: Bhanu Marte Interpretating Date/Time 01/05/2017 19:31:48
--- NOTE | 2017-01-05 21:28 | HHI.PR ---
Subjective Subjective Notes JO-ANN Objective Vitals/I&O Vital Signs Date Time Temp Pulse Resp B/P Pulse Ox O2 Delivery O2 Flow Rate FiO2 01/05/17 18:00 97 01/05/17 16:37 99 40 01/05/17 16:00 100.0 14 129/77 01/05/17 11:00 Mechanical Ventilator Labs Laboratory Tests Test 01/04/17 01/05/17 01/05/17 01/05/17 23:57 00:45 03:08 11:45 Sodium Level 117 117 120 Blood Gas Puncture Site SANDRA Blood Gas Patient Temperature 98.6 Blood Gas HCO3 25 Blood Gas Base Excess 1.8 Blood Gas Oxygen Saturation 97 Arterial Blood pH 7.49 Arterial Blood Partial 33 Pressure CO2 Arterial Blood Partial 154 Pressure O2 Arterial Blood Oxygen Content 15.9 Arterial Blood 1.9 Carboxyhemoglobin Arterial Blood Methemoglobin 0.8 Blood Gas Hemoglobin 11.5 Oxygen Delivery Device VENTILATOR Blood Gas Ventilator Setting PRVC16/500/1.0/+5 Blood Gas Inspired Oxygen 50 White Blood Count 25.4 Red Blood Count 3.98 Hemoglobin 12.1 Hematocrit 34.4 Mean Corpuscular Volume 86.4 Mean Corpuscular Hemoglobin 30.4 Mean Corpuscular Hemoglobin 35.2 Concent Red Cell Distribution Width 15.4 Platelet Count 457 Mean Platelet Volume 8.1 Neutrophils (%) (Auto) 92.6 Lymphocytes (%) (Auto) 2.5 Monocytes (%) (Auto) 4.3 Eosinophils (%) (Auto) 0.5 Basophils (%) (Auto) 0.1 Neutrophils # (Auto) 23.5 Lymphocytes # (Auto) 0.6 Monocytes # (Auto) 1.1 Eosinophils # (Auto) 0.1 Basophils # (Auto) 0.0 CBC Comment DIFF FINAL Differential Comment Prothrombin Time 13.5 Prothromb Time International 1.2 Ratio Activated Partial 36.0 Thromboplast Time Potassium Level 3.4 Chloride Level 80 Carbon Dioxide Level 24.5 Anion Gap 13 Blood Urea Nitrogen 16 Creatinine 0.88 Estimat Glomerular Filtration 84 Rate Random Glucose 108 Lactic Acid Level 0.9 Calcium Level 8.4 Phosphorus Level 2.5 Magnesium Level 1.8 Total Bilirubin 1.1 Aspartate Amino Transf 45 (AST/SGOT) Alanine Aminotransferase 36 (ALT/SGPT) Alkaline Phosphatase 104 Ammonia 12 Total Creatine Kinase 206 123 Creatine Kinase MB 5.9 Troponin I 0.02 B-Type Natriuretic Peptide 222 Total Protein 6.1 Albumin 2.7 Test 01/05/17 17:45 Sodium Level 122 Date/Time Procedure Status Source Growth 01/04/17 15:05 Influenza Types A,B Antigen (SAMANTHA) - Final Complete Nasal Aspirate NEGATIVE FOR FLU A AND B ANTIGEN.... 01/04/17 09:35 Aerobic Blood Culture - Preliminary Resulted Blood Peripheral NO GROWTH IN 1 DAY 01/04/17 09:35 Anaerobic Blood Culture - Preliminary Resulted Blood Peripheral NO GROWTH IN 1 DAY 01/04/17 09:24 Legionella Antigen - Final Complete Urine Catheterized Urine PRESUMPTIVE NEGATIVE FOR LEGIONELLA P... 01/04/17 09:24 Streptococcus pneumoniae Antigen (M - Final Complete Urine Catheterized Urine PRESUMPTIVE NEGATIVE FOR STREPTOCOCCU... Cardiovascular: Regular Abdomen: Non-distended, Non-tender A/P Assessment and Plan 76yo male, multiorgan failure, critically ill. mildly distended abdomen, non- tender, likely medical ileus 2/2 primary issues. should resolve once clinically improves. will consider upper GI SBFT once more stable. will continue to follow. continue NG tube. Bharta Saleh MD Jan 05, 2017 21:28
--- NOTE | 2017-01-05 21:57 | PD.ID.CON ---
History of Present Illness Service ID Consult Requested By Dr Grayson Reason for Consult sepsis Primary Care Physician Unknown Diagnoses: History of Present Illness 76 yo male presented to [place] 3 days ago with abdominal pain but was discharged within 48 hrs with diagnosis of R pyelo by CT abd/pel and Levaquine prescription he came back next day with MS change and ongpoing abdominal pain; b/l adrenal hemorrages not present on CT [address] showed obstruction He is intrubated, on mech ventilatrion and on 100 mcgs of neosynephrine Fever up to 100, leukoctosiso 25 K He is in sepsis, septic shock, intuubated, on mech vent and pressors CT with small bowel obstuction MRI with bl adrenal hemorrhages; Sterrpoids started (solucortef) Pt was seen by Dr Saleh who recommends conservative treatment at this point Pt is on broad spectrum abx including cefepme and vancomycin Blood clx are bnegative @ 1 day x2 and @ 3 days x 2 Review of Systems ROS Limitations: Clinical Condition, Intubated, Altered Mental Status Past Family Social History Allergies: Coded Allergies: No Known Allergies (Unverified , 01/02/17) Past Medical History Hypertension Right lower extremity DVT Right lower extremity chronic wound Past Surgical History Vasectomy Active Ordered Medications Medications where reviewed in EMR Antibiotics Include: cefepime vancomycin Family History cancer Social History No Tobacco. No ETOH. No Illicit Drugs. Physical Exam Vital Signs Vital Signs Date Time Temp Pulse Resp B/P Pulse Ox O2 Delivery O2 Flow Rate FiO2 01/05/17 18:00 97 01/05/17 16:37 99 40 01/05/17 16:00 50 01/05/17 16:00 100.0 92 14 129/77 100 01/05/17 16:00 93 01/05/17 14:39 99 100 01/05/17 14:00 112 01/05/17 12:41 100 40 01/05/17 12:00 50 01/05/17 12:00 99.4 112 14 113/76 100 01/05/17 12:00 108 01/05/17 11:00 100 Mechanical Ventilator 50 01/05/17 10:00 114 01/05/17 10:00 100 Mechanical Ventilator 50 01/05/17 09:00 100 Mechanical Ventilator 50 01/05/17 08:03 99 50 01/05/17 08:00 99.0 104 14 105/62 100 01/05/17 08:00 100 Mechanical Ventilator 50 01/05/17 08:00 106 01/05/17 08:00 50 01/05/17 07:00 100 Mechanical Ventilator 50 01/05/17 06:00 86 01/05/17 04:00 99.0 87 14 77/48 99 88/49 01/05/17 04:00 87 01/05/17 04:00 50 01/05/17 03:59 99 50 01/05/17 02:00 50 01/05/17 02:00 92 01/05/17 00:25 50 01/05/17 00:25 100 50 01/05/17 00:00 114 01/05/17 00:00 100.8 114 34 168/96 94 01/04/17 22:42 98 01/04/17 22:00 96 Physical Exam CONSTITUTIONAL/GENERAL: This is an adequately nourished patient, sedated intubated on [facility] vent TUBES/LINES/DRAINS: SKIN: No jaundice, rashes, or lesions.Vitiligo involving hands, feet primarily Skin temperature appropriate BUE, feet are very cold to touch . Not diaphoretic. HEAD: Atraumatic. Normocephalic. EYES: Pupils equal and round and reactive. Extraocular motions intact. No scleral icterus. No injection or drainage. Fundi not examined. ENT: Hearing not tested. Nose without bleeding or purulent drainage. Oral mucosae moist without visible erythema, exudates, masses, or lesions. NG tube to suction with clear yellowish d/c NECK: Trachea midline. Supple, nontender. No palpable thyroid enlargement or nodularity. CARDIOVASCULAR: Regular rate and rhythm without murmurs, gallops, or rubs. No JVD. Peripheral pulses symmetric. RESPIRATORY/CHEST: Symmetric, unlabored respirations. Clear to auscultation. Breath sounds equal bilaterally. No wheezes, rales, or rhonchi. GASTROINTESTINAL: Abdomen fairly soft, no reaction to plaption, moderately distended. + prominent tympany to palpation No bowel sounds. RN reports some hypoactive sounds, flatus No hepato-splenomegaly, or palpable masses. No guarding. Bowel sounds present. GENITOURINARY: Without palpable bladder distension. Parada catheter in place with clear yellow urine MUSCULOSKELETAL: Extremities without clubbing, cyanosis, or edema. Cold feet No calf tenderness. No mottling or clubbing. LYMPHATICS: No palpable cervical or supraclavicular adenopathy. NEUROLOGICAL: sedated; unresponsive PSYCHIATRIC: not possible to assess Laboratory Laboratory Tests Test 01/04/17 01/05/17 01/05/17 01/05/17 23:57 00:45 03:08 11:45 Sodium Level 117 117 120 Blood Gas Puncture Site SANDRA Blood Gas Patient Temperature 98.6 Blood Gas HCO3 25 Blood Gas Base Excess 1.8 Blood Gas Oxygen Saturation 97 Arterial Blood pH 7.49 Arterial Blood Partial 33 Pressure CO2 Arterial Blood Partial 154 Pressure O2 Arterial Blood Oxygen Content 15.9 Arterial Blood 1.9 Carboxyhemoglobin Arterial Blood Methemoglobin 0.8 Blood Gas Hemoglobin 11.5 Oxygen Delivery Device VENTILATOR Blood Gas Ventilator Setting PRVC16/500/1.0/+5 Blood Gas Inspired Oxygen 50 White Blood Count 25.4 Red Blood Count 3.98 Hemoglobin 12.1 Hematocrit 34.4 Mean Corpuscular Volume 86.4 Mean Corpuscular Hemoglobin 30.4 Mean Corpuscular Hemoglobin 35.2 Concent Red Cell Distribution Width 15.4 Platelet Count 457 Mean Platelet Volume 8.1 Neutrophils (%) (Auto) 92.6 Lymphocytes (%) (Auto) 2.5 Monocytes (%) (Auto) 4.3 Eosinophils (%) (Auto) 0.5 Basophils (%) (Auto) 0.1 Neutrophils # (Auto) 23.5 Lymphocytes # (Auto) 0.6 Monocytes # (Auto) 1.1 Eosinophils # (Auto) 0.1 Basophils # (Auto) 0.0 CBC Comment DIFF FINAL Differential Comment Prothrombin Time 13.5 Prothromb Time International 1.2 Ratio Activated Partial 36.0 Thromboplast Time Potassium Level 3.4 Chloride Level 80 Carbon Dioxide Level 24.5 Anion Gap 13 Blood Urea Nitrogen 16 Creatinine 0.88 Estimat Glomerular Filtration 84 Rate Random Glucose 108 Lactic Acid Level 0.9 Calcium Level 8.4 Phosphorus Level 2.5 Magnesium Level 1.8 Total Bilirubin 1.1 Aspartate Amino Transf 45 (AST/SGOT) Alanine Aminotransferase 36 (ALT/SGPT) Alkaline Phosphatase 104 Ammonia 12 Total Creatine Kinase 206 123 Creatine Kinase MB 5.9 Troponin I 0.02 B-Type Natriuretic Peptide 222 Total Protein 6.1 Albumin 2.7 Test 01/05/17 17:45 Sodium Level 122 Date/Time Procedure Status Source Growth 01/04/17 15:05 Influenza Types A,B Antigen (SAMANTHA) - Final Complete Nasal Aspirate NEGATIVE FOR FLU A AND B ANTIGEN.... 01/04/17 09:35 Aerobic Blood Culture - Preliminary Resulted Blood Peripheral NO GROWTH IN 1 DAY 01/04/17 09:35 Anaerobic Blood Culture - Preliminary Resulted Blood Peripheral NO GROWTH IN 1 DAY 01/04/17 09:24 Legionella Antigen - Final Complete Urine Catheterized Urine PRESUMPTIVE NEGATIVE FOR LEGIONELLA P... 01/04/17 09:24 Streptococcus pneumoniae Antigen (M - Final Complete Urine Catheterized Urine PRESUMPTIVE NEGATIVE FOR STREPTOCOCCU... Result Diagram: 01/05/17 0308 01/05/17 1745 Imaging Last Impressions Head Magnetic Resonance Angiography 01/05/17 0000 Signed Impressions: Service Date/Time: Thursday, January 05, 2017 14:37 - CONCLUSION: Normal examination. Esperanza Odell MD Chest X-Ray 01/05/17 0000 Signed Impressions: Service Date/Time: Thursday, January 05, 2017 01:01 - CONCLUSION: Mild bibasilar atelectasis. Appropriately positioned lines and tubes as above. Santos Arce MD Abdomen MRI 01/05/17 0000 Signed Impressions: Service Date/Time: Thursday, January 05, 2017 14:37 - CONCLUSION: The bilateral adrenal masses have developed since the CT abdomen from 01/02/2017 and the most likely etiologies includes bilateral adrenal hemorrhage or possibly reactive hyperplasia. The exact etiology is not certain. Esperanza Odell MD Head CT 01/04/17 0848 Signed Impressions: Service Date/Time: Wednesday, January 04, 2017 08:58 - CONCLUSION: Unremarkable examination for each. Tyler Nagy MD Neck CT 01/04/17 0000 Signed Impressions: Service Date/Time: Wednesday, January 04, 2017 20:49 - CONCLUSION: Questionable thickening of the vocal cords. These can be directly inspected. Otherwise the study appears grossly normal for a noncontrast CT of the neck. Santos Whitley MD Lower Extremity Ultrasound 01/04/17 0000 Signed Impressions: Service Date/Time: Wednesday, January 04, 2017 18:55 - CONCLUSION: Partially occlusive thrombus in the right superficial femoral, popliteal and peroneal veins. No thrombus is seen on the left side. Santos Whitley MD Chest CT 01/04/17 0000 Signed Impressions: Service Date/Time: Wednesday, January 04, 2017 20:50 - CONCLUSION: 1. Mild bilateral pleural effusions with suspected accompanying areas of atelectasis or consolidation at the lung bases. 2. Coronary artery calcifications. Santos Whitley MD Brain MRI 01/04/17 0000 Signed Impressions: Service Date/Time: Wednesday, January 04, 2017 21:19 - CONCLUSION: Atrophy and mild chronic white matter changes. No acute infarct or other acute intracranial abnormality. Santos Arce MD Abdomen/Pelvis CT 01/04/17 0000 Signed Impressions: Service Date/Time: Wednesday, January 04, 2017 10:32 - CONCLUSION: 1. New abnormal bowel gas pattern of concern for distal small bowel obstruction. 2. New bilateral adrenal masses which were not present 2 days ago. The differential includes adrenal hemorrhage and/or hyperplasia. 3. New small pleural effusions right greater than left. 4. Mild diverticulosis. Tyler Nagy MD Assessment and Plan Assessment and Plan Sepsis - source is likley intra- abdominal: small bowel obstruction vs ileus - distal esophagus thickening ? significance Acute VDRF - leukocytosis, leukemoid reaction - cont cefepime - cont vancomycin - start flagyl - monitor clinically - gen surgery ff to decide on need and timing of surgical treatment Discussed Condition With RN @ b/s Ilana Salinas MD Jan 05, 2017 21:57
[2017-01-05] MEDS: metroNIDAZOLE 500 MG INJ 100 ML IV SCH (22:39)
[2017-01-06] VITALS (18 sets, daily range): BP systolic 102–134; BP diastolic 62–90; PULSE 84–112; RESP 14; TEMP 97.6–98.8; O2SAT 98–100
[2017-01-06] MEDS: RESP: ALBUTEROL 2.5 MG/IPRATROPIUM 0.5 MG NEB (SCH) INH ×6 (00:30→20:12)
[2017-01-06] MEDS: SODIUM CHLOR 0.9% 1000 ML INJ 1,000 ML IV SCH ×3 (01:28→22:09)
[2017-01-06] MEDS: CEFEPIME INJ 2,000 MG in SODIUM CHLORIDE 0.9% INJ 100 ML IV SCH ×2 (03:04→16:06)
[2017-01-06] MEDS: CHLORHEXIDINE GLUCONATE 2 % 1 PACK (2 CLOTHS) TOP SCH (03:04)
[2017-01-06] MEDS: LORazepam 2 MG/ML VIAL IV PUSH SCH ×2 (04:02→10:29)
[2017-01-06] MEDS: HYDROCORTISONE SOD SUCCINATE 100 MG VIAL IV PUSH SCH ×3 (04:59→22:09)
[2017-01-06] MEDS: metroNIDAZOLE 500 MG INJ 100 ML IV SCH ×3 (04:59→22:09)
[2017-01-06 05:32] LABS: AUTOMATED NEUTROPHIL # 30.6 TH/MM3 (1.8-7.7); BASOPHIL % 0.1 % (0.0-2.0); HEMATOCRIT 35.1 % (39.0-51.0); LYMPH % 1.6 % (9.0-44.0); LYMPHOCYTE # 0.5 TH/MM3 (1.0-4.8); MEAN CELL VOLUME 88.5 FL (80.0-100.0); MEAN CORPUSCULAR HEMOGLOBIN 29.7 PG (27.0-34.0); MEAN CORPUSCULAR HGB CONC 33.6 % (32.0-36.0); MONO % 3.6 % (0.0-8.0); NEUT % 94.7 % (16.0-70.0); PLATELET COUNT 556 TH/MM3 (150-450); RED BLOOD COUNT 3.97 MIL/MM3 (4.50-5.90); WHITE BLOOD COUNT 32.3 TH/MM3 (4.0-11.0)
[2017-01-06 05:36] LABS: HEMO FLAGS AUTO DIFF
[2017-01-06 05:38] LABS: INTERNATIONAL NORMALIZED RATIO 1.1 RATIO; PROTHROMBIN TIME - PATIENT 12.4 SEC (9.8-11.6)
[2017-01-06] MEDS: VANCOMYCIN INJ 1,250 MG in SODIUM CHLOR 0.9% 250 ML INJ 250 ML IV SCH ×2 (05:39→18:00)
[2017-01-06] MEDS: SODIUM CHLORIDE 23.4% INJ 188 MEQ in SODIUM CHLOR 0.9% 1000 ML INJ 1,000 ML IV SCH (05:40)
[2017-01-06] MEDS ORDERED: VANCOMYCIN TROUGH ONE (05:45)
[2017-01-06] MEDS: PHENYLEPHRINE INJ 80 MG in DEXTROSE 5% IN WATE 500 ML INJ 492 ML IV SCH ×4 (05:49→22:09)
[2017-01-06 05:53] LABS: ALKALINE PHOSPHATASE 104 U/L (45-117); ALT (GPT) 28 U/L (12-78); ANION GAP 10 MEQ/L (5-15); AST (GOT) 24 U/L (15-37); BICARBONATE 23.4 MEQ/L (21.0-32.0); BLOOD UREA NITROGEN 17 MG/DL (7-18); CHLORIDE 96 MEQ/L (98-107); GLOMERULAR FILTRATION RATE 88 ML/MIN (>89); MAGNESIUM 2.3 MG/DL (1.5-2.5); POTASSIUM 3.6 MEQ/L (3.5-5.1); SODIUM (NA) 129 MEQ/L (136-145); TOTAL BILIRUBIN ADULT 0.4 MG/DL (0.2-1.0); VANCOMYCIN TROUGH 15.1 MCG/ML (5.0-10.0)
[2017-01-06] MEDS: INSULIN NovoLIN REGULAR SUPPLEMENTAL SCALE SQ SCH ×4 (07:00→21:00)
[2017-01-06] MEDS: CHLORHEXIDINE 0.12% (ORAL KIT) 15 ML CUP MT SCH ×2 (08:18→19:49)
[2017-01-06] MEDS: THIAMINE INJ 100 MG in SODIUM CHLORIDE 0.9% INJ 100 ML IV SCH (08:19)
[2017-01-06] MEDS: DOCUSATE SODIUM 100 MG CAP PO SCH ×2 (08:19→21:00)
[2017-01-06] MEDS: PANTOPRAZOLE SODIUM 40 MG VIAL IV SCH (08:19)
[2017-01-06] MEDS: ARTIFICIAL TEARS OPTH SOLN 15 ML BTL EACH EYE SCH ×3 (08:19→18:00)
[2017-01-06] MEDS: SODIUM CHLORIDE 0.9% FLUSH 10 ML FLUSH IV FLUSH SCH ×2 (08:20→22:10)
[2017-01-06] MEDS: FOLIC ACID 1 MG TAB PO SCH (08:20)
[2017-01-06] MEDS: MULTIVITAMIN TAB PO SCH (08:20)
[2017-01-06 11:56] LABS: BANDS 7 % (0-6); BURR CELLS 1+ (NORMAL); NEUTROPHIL # MANUAL DIFF 30.7 TH/MM3 (1.8-7.7); OVALOCYTES 1+ (NORMAL); PLATELET ESTIMATE SMEAR HIGH (NORMAL); PLATELET MORPHOLOGY NORMAL (NORMAL); POLYS (SEG NEUTROPHILS) 88 % (16-70); SCAN/DIFF FINAL DIFF MANUAL; TOXIC VACUOLATION PRESENT (NONE SEEN); WBC DIFF SAMPLE 100
[2017-01-06] MEDS: MIDAZOLAM 100 MG/ML INJ 100 ML IV SCH (14:33)
--- NOTE | 2017-01-06 14:56 | HHI.CCPN ---
Subjective Remarks/Hospital Course 76-year-old Male. Date of Admission 01/04/2017. 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 This Is 5 x 5 Cm. Covered in Blue Bandage. Patient Presents to [facility] after Being Discharged 01/02 with Altered Mental Status. 01/[address] abdomen pelvis which showed induration of the right kidney possibly past of possible pyelonephritis. UA was negative for infection. 2 cm cyst at the left kidney pole. Sigmoid diverticulosis. Degenerative disc disease lumbar spine. Patient did have a low-sodium 126 at that time.at that time, he was complaining of severe bilateral flank pain. Was associated after eating greasy food at [facility]. Associated with nausea and vomiting Saturday and Saturday prior to admission. He felt better the next morning was sent home on Levaquin. Day, patient was found confused and altered by his roommate this morning. Was transferred to [facility]. CT abdomen and pelvis revealed a right-sided 3.6 x 2.5 cm left 2.5 adrenal mass. Possible hemorrhage. Dilated esophagus with thickening, and dilated stomach, colon diverticula. Possible small bowel obstruction. NG tube was placed with 800cc brown gastric contents removed. /general surgery was consulted and has seen the patient for possible small bowel obstruction. Patient is room air, hypertensive requiring 40 mg labetalol. 01/05: Patient more agitated with fever 102, tachycardia worse, and diffuse wheezing, labored respiratory effort. Na 116. Received 100 ml 3% saline, lasix 40 mg, intubation and ventilation. Head CT and MRI normal aside from atrophy. 01/06: Tmax 98.7. Continued elevation in WBC count. ID consult to Dr. Salinas following, Flagyl was added to medication regime yesterday. The patient was placed on a 2% sodium infusion for hyponatremia. Coagulant studies still pending, no growth from blood cultures will obtain sputum culture today. Patient continues on vasopressor support requiring Phenylephrine. Objective Vital Signs Date Time Temp Pulse Resp B/P Pulse Ox O2 Delivery O2 Flow Rate FiO2 01/06/17 12:04 100 40 01/06/17 12:00 98.7 98 14 124/79 01/06/17 07:00 Mechanical Ventilator Intake and Output 01/05/17 01/05/17 01/06/17 08:00 16:00 00:00 Intake Total 187 ml 1809 ml 1015 ml Output Total 1625 ml 650 ml 1225 ml Balance -1438 ml 1159 ml -210 ml Result Diagram: 01/06/17 0513 01/06/17 1145 Other Results Microbiology Date/Time Procedure Status Source Growth 01/04/17 09:24 Legionella Antigen - Final Complete Urine Catheterized Urine PRESUMPTIVE NEGATIVE FOR LEGIONELLA P... 01/04/17 09:24 Streptococcus pneumoniae Antigen (M - Final Complete Urine Catheterized Urine PRESUMPTIVE NEGATIVE FOR STREPTOCOCCU... 01/04/17 15:05 Influenza Types A,B Antigen (SAMANTHA) - Final Complete Nasal Aspirate NEGATIVE FOR FLU A AND B ANTIGEN.... Imaging Last Impressions Head CT 01/04/17 0848 Signed Impressions: Service Date/Time: Wednesday, January 04, 2017 08:58 - CONCLUSION: Unremarkable examination for each. Tyler Nagy MD Chest X-Ray 01/04/17 0000 Signed Impressions: Service Date/Time: Wednesday, January 04, 2017 08:59 - CONCLUSION: No acute disease. There is no evidence of pneumonia. Tyler Nagy MD Abdomen/Pelvis CT 01/04/17 0000 Signed Impressions: Service Date/Time: Wednesday, January 04, 2017 10:32 - CONCLUSION: 1. New abnormal bowel gas pattern of concern for distal small bowel obstruction. 2. New bilateral adrenal masses which were not present 2 days ago. The differential includes adrenal hemorrhage and/or hyperplasia. 3. New small pleural effusions right greater than left. 4. Mild diverticulosis. Tyler Nagy MD Objective Remarks Phenylephrine 80 mcgs Midazolam 5 mg Fentanyl 100 mcgs CO 4.6 CI 2.1 SV 54 SVV 15 GENERAL: 76-year-old male, intubated and sedated SKIN: Warm, flushed, damp. Ecchymotic region to right lower extremity/medial ankle with 5 x [address] Some chronic venous stasis wound HEAD: Atraumatic. Normocephalic. EYES: Pupils equal and round about 4 mm bilaterally and minimally reactive. ENT: No nasal bleeding or discharge. Mucous membranes pink and moist. NECK: Trachea midline. No stridor but transmitted wheezes. CARDIOVASCULAR: Regular rate and rhythm. S1, S2. No S4. rate 130s, +JVD. RESPIRATORY: Mechanical ventilation Clear to auscultation bilaterally. No accessory muscle movement GASTROINTESTINAL: Abdomen remains protuberant and distended. No guarding. Nontender. Hypoactive bowel sounds are appreciated MUSCULOSKELETAL: Extremities trace lower extremity edema. Right medial ankle 5 x 5 cm covered in BLUE disc. Clammy. NEUROLOGICAL: RASS -2. Moving extremities 4, not following commands. PSYCHIATRIC: N/A Urinary Catheter: Yes Date of Insertion: Jan 04, 2017 Vascular Central Line Catheter: Yes Date of Insertion: Jan 04, 2017 Side: Left Location: Subclavian A/P Assessment and Plan Neuro/Psych: Acute toxic metabolic encephalopathy History of EtOH Depression/anxiety CT head 01/04 reveals no acute intracranial abnormalities Holding bupropion 150 mg by mouth daily Hold Ultram and Percocets with altered mental status currently Thiamine/folate/multivitamin daily with EtOH use MRI/A brain 01/05- normal exam Monitor for alcohol withdrawal-seizure precautions CV: Hypertension Right lower extremity DVT As needed hydralazine/labetalol/Nitropaste to maintain systolic blood pressure was 160 Home medication of Lopressor 25 mg BID- on hold Follow up on troponin 0.02.. Will trend Check right lower extremity Dopplers ultrasound for DVT Resp: Acute respiratory insufficiency Acute hypoxic respiratory failure requiring intubation Nasal cannula to maintain saturations greater than equal to 92% Mechanical ventilation 14/500/0.40/5 Ventilator bundle Chest x-ray 01/04 reveals no acute cardiopulmonary findings Required intubation 01/05 for labored breathing due to bronchospasm. GI: Small bowel obstruction versus ileus CT abd/pelvis 01/04 revealed right 3.6 x 2.4 cm and left 2.5 x 1.4 cm adrenal masses. Distal esophagus with thickening. Dilated stomach.: Colonic Diverticuli. Compressed colon. Possible bowel obstruction. Dr. Sosa/general surgery consulted-medical management at this time. Planned for possible small bowel follow-through Negative ultrasound gallbladder 01/02 Follow-up KUB : Follow-up ADH level Parada has been placed for accurate I's and O's in a critically ill patient UA with proteinuria see below Endo: Adrenal mass -bilateral possible hemorrhage See CT abdomen/pelvis results above. Will check MRI abdomen specific adrenal rule out thrombus Cosyntropin test ordered. Results pending Noted hypertensive. Potassium normal. No carotid adrenal insufficiency Patient placed on hydrocortisone 100 mg 3 times a day Sliding-scale insulin with Accu-Cheks to maintain euglycemia/low regimen Renal: Proteinuria Patient states he needed kidney biopsy in past but refused Follow-up a.m. BMP Accurate I's and O's Monitor urine output Heme: Leukocytosis Thrombocytosis Chronic Xarelto use Follow CBC name. Monitor trends. 25-> 32 today. Flagyl added to medication regimen Unknown if infectious etiology. ID consult toDr. Salinas UA negative. Procoagulant studies [id number] results ID: Receive 1 dose Rocephin in ED. Previously on Levaquin daily Vancomycin/cefepime day 2 ordered Monitor for infection Pertinent cultures 01/04 - blood cultures 2 - pending 01/04 - UA - negative 01/02 - blood cultures 2 - pending FEN: Hyponatremia - hypoosmolar 01/04Check cortisol/cosyntropin test otherwise likely SIADH TSH was 1.12. Uric acid 3.0. Lipid panel ordered. 2% NaCl infusion-sodium 130, infusion placed on hold. Currently titrating 2% sodium not to exceed 0.5 mEq per liter per hour Continue 0.9 sodium chloride at 84 cc/hour Continue every 6 hours sodium level monitoring MSK: Right lower extremity wound Wound care evaluation Access - Utilize peripheral IV. Central line if indicated Prophylaxis - GI - Protonix - DVT - SCD/holding Xarelto in light of possible adrenal hemorrhage This patient remains critically ill with one or more organ systems which are or may become a threat to life. I have spent in excess of 48 minutes discontinuously in the care and management of this patient. This time is exclusive of procedures, and includes, but is not limited to, evaluation of the patient, review of the medical record, discussions with family, consultants, nursing staff, or respiratory therapy, and documentation in the medical record. Prognosis guarded, continues to deteriorate. Physician Cari Washington MD Jan 06, 2017 14:56
[2017-01-06] MEDS ORDERED: POTASSIUM PHOSPHATE MONOBASIC 500 MG TAB PO PRN (15:00)
[2017-01-06] MEDS ORDERED: MAGNESIUM OXIDE 400 MG TAB PO PRN (15:00)
[2017-01-06] MEDS ORDERED: POTASSIUM CHLORIDE 25 MEQ EFFERVESCENT TAB PO PRN (15:00)
[2017-01-06] MEDS ORDERED: MAGNESIUM SULFATE INJ 4 GM in SODIUM CHLORIDE 0.9% INJ 92 ML IV PRN (15:00)
[2017-01-06] MEDS ORDERED: MAGNESIUM SULFATE INJ 2 GM in SODIUM CHLORIDE 0.9% INJ 96 ML IV PRN (15:00)
[2017-01-06] MEDS ORDERED: POTASSIUM CHLOR 20 MEQ PREMIX 100 ML IV PRN ×2 (15:00)
[2017-01-06] MEDS ORDERED: SODIUM PHOSPHATE INJ 30 MMOL in SODIUM CHLOR 0.9% 250 ML INJ 240 ML IV PRN (15:00)
[2017-01-06] MEDS ORDERED: POTASSIUM PHOSPHATE MONOBASIC 500 MG TAB PO/TUBE PRN (15:00)
[2017-01-06 15:19] LABS: BLOOD GAS BASE EXCESS -2.9 mmol/L (-2-2); BLOOD GAS CARBOXYHEMOGLOBIN 1.2 % (0-4); BLOOD GAS HCO3 20 mmol/L (22-26); BLOOD GAS METHEMOGLOBIN 0.8 % (0-2); BLOOD GAS O2 HGB SATURATION 98 % (90-100); BLOOD GAS OXYGEN CONTENT 16.8 Vol % (12.0-20.0); BLOOD GAS PCO2 29 mmHg (38-42); BLOOD GAS PO2 161 mmHg (61-120); TEMP CORR TO 98.6
--- NOTE | 2017-01-06 15:19 | HHI.PR ---
Subjective Subjective Notes Intubated, sedated Objective Vitals/I&O Vital Signs Date Time Temp Pulse Resp B/P Pulse Ox O2 Delivery O2 Flow Rate FiO2 01/06/17 12:04 100 40 01/06/17 12:00 98.7 98 14 124/79 01/06/17 07:00 Mechanical Ventilator Labs Laboratory Tests Test 01/05/17 01/05/17 01/06/17 01/06/17 17:45 23:10 05:13 11:45 Sodium Level 122 126 129 130 White Blood Count 32.3 Red Blood Count 3.97 Hemoglobin 11.8 Hematocrit 35.1 Mean Corpuscular Volume 88.5 Mean Corpuscular Hemoglobin 29.7 Mean Corpuscular Hemoglobin 33.6 Concent Red Cell Distribution Width 16.0 Platelet Count 556 Mean Platelet Volume 7.7 Neutrophils (%) (Auto) 94.7 Lymphocytes (%) (Auto) 1.6 Monocytes (%) (Auto) 3.6 Eosinophils (%) (Auto) 0.0 Basophils (%) (Auto) 0.1 Neutrophils # (Auto) 30.6 Lymphocytes # (Auto) 0.5 Monocytes # (Auto) 1.2 Eosinophils # (Auto) 0.0 Basophils # (Auto) 0.0 CBC Comment AUTO DIFF Differential Total Cells 100 Counted Neutrophils % (Manual) 88 Band Neutrophils % 7 Lymphocytes % 2 Monocytes % 3 Neutrophils # (Manual) 30.7 Differential Comment FINAL DIFF MANUAL Toxic Vacuolation PRESENT Platelet Estimate HIGH Platelet Morphology Comment NORMAL Ovalocytes 1+ Street Cells 1+ Prothrombin Time 12.4 Prothromb Time International 1.1 Ratio Potassium Level 3.6 Chloride Level 96 Carbon Dioxide Level 23.4 Anion Gap 10 Blood Urea Nitrogen 17 Creatinine 0.85 Estimat Glomerular Filtration 88 Rate Random Glucose 160 Calcium Level 8.0 Phosphorus Level 2.4 Magnesium Level 2.3 Total Bilirubin 0.4 Aspartate Amino Transf 24 (AST/SGOT) Alanine Aminotransferase 28 (ALT/SGPT) Alkaline Phosphatase 104 Total Protein 5.6 Albumin 2.1 Vancomycin Level Trough 15.1 Date/Time Procedure Status Source Growth 01/04/17 15:05 Influenza Types A,B Antigen (SAMANTHA) - Final Complete Nasal Aspirate NEGATIVE FOR FLU A AND B ANTIGEN.... 01/04/17 09:35 Aerobic Blood Culture - Preliminary Resulted Blood Peripheral NO GROWTH IN 2 DAYS 01/04/17 09:35 Anaerobic Blood Culture - Preliminary Resulted Blood Peripheral NO GROWTH IN 2 DAYS 01/04/17 09:24 Legionella Antigen - Final Complete Urine Catheterized Urine PRESUMPTIVE NEGATIVE FOR LEGIONELLA P... 01/04/17 09:24 Streptococcus pneumoniae Antigen (M - Final Complete Urine Catheterized Urine PRESUMPTIVE NEGATIVE FOR STREPTOCOCCU... Lungs: Clear Abdomen: Other (Distended, nontender, quiet) Extremities: No edema Narrative Exam NG output only 100ml last 8hrs A/P Assessment and Plan Assessment: 76yo male, multiorgan failure, critically ill. mildly distended abdomen, non- tender. Ileus likely secondary to medical issues. More stable today with improved hyponatremia. Plan: Consider upper GI SBFT once more stable. will continue to follow. continue NG tube. Tyler Real MD Jan 06, 2017 15:19
[2017-01-06 15:20] LABS: CRITICAL VALUE NO; DRAW SITE ART LINE; FIO2 40 %; OXYGEN DEVICE VENTILATOR; STAT NO
[2017-01-06] MEDS: fentaNYL DRIP 250 ML IV SCH (15:40)
[2017-01-07] VITALS (18 sets, daily range): BP systolic 117–141; BP diastolic 76–87; PULSE 75–118; RESP 14–16; TEMP 97.7–99.3; O2SAT 99–100
[2017-01-07] MEDS ORDERED: PROPOFOL 1000 MG/100 ML INJ 100 ML ONE (01:04)
[2017-01-07] MEDS: RESP: ALBUTEROL 2.5 MG/IPRATROPIUM 0.5 MG NEB (SCH) INH ×7 (01:13→23:15)
--- NOTE | 2017-01-07 01:46 | RADRPT ---
EXAM DATE/TIME: 01/07/2017 01:13 [place] COMPARISON: CHEST SINGLE AP, January 05, 2017, 1:01. INDICATIONS : Shortness of breath. MEDICAL HISTORY : Hypertension. SURGICAL HISTORY : None. ENCOUNTER: Subsequent ACUITY: 4 - 6 days PAIN SCORE: Non-responsive. LOCATION: Bilateral chest FINDINGS: The cardiac silhouette is enlarged in transverse diameter. Support lines and tubes are in satisfactor y position. There is left lower lobe atelectasis versus pneumonia. There is prominence of the central pulmonary vasculature with indistinct vascular margins compatible with vascular congestion but no ev idence of overt failure. CONCLUSION: 1. Cardiomegaly. Left lower lobe atelectasis versus pneumonia. 2. Cardiomegaly and findings of vascular congestion without overt failure. There has been no signif icant change when compared to the prior exam. Aneudy Dennis MD on January 07, 2017 at 1:43 Board Certified Radiologist. This report was verified electronically.
[2017-01-07] MEDS: PHENYLEPHRINE INJ 80 MG in DEXTROSE 5% IN WATE 500 ML INJ 492 ML IV SCH ×2 (02:10)
[2017-01-07] MEDS: fentaNYL DRIP 250 ML IV SCH (03:36)
[2017-01-07] MEDS: PROPOFOL 1000 MG/100 ML IV SCH ×4 (03:36→13:18)
[2017-01-07] MEDS: CHLORHEXIDINE GLUCONATE 2 % 1 PACK (2 CLOTHS) TOP SCH (03:37)
[2017-01-07] MEDS: CEFEPIME INJ 2,000 MG in SODIUM CHLORIDE 0.9% INJ 100 ML IV SCH ×2 (03:37→16:21)
[2017-01-07 04:50] LABS: AUTOMATED NEUTROPHIL # 27.3 TH/MM3 (1.8-7.7); BASOPHIL # 0.1 TH/MM3 (0-0.2); BASOPHIL % 0.2 % (0.0-2.0); EOSINOPHIL % 0.1 % (0.0-4.0); HEMATOCRIT 34.5 % (39.0-51.0); HEMO FLAGS DIFF FINAL; LYMPH % 1.3 % (9.0-44.0); LYMPHOCYTE # 0.4 TH/MM3 (1.0-4.8); MEAN CELL VOLUME 90.3 FL (80.0-100.0); MEAN CORPUSCULAR HGB CONC 34.3 % (32.0-36.0); MONO % 3.8 % (0.0-8.0); NEUT % 94.6 % (16.0-70.0); PLATELET COUNT 429 TH/MM3 (150-450); RED BLOOD COUNT 3.82 MIL/MM3 (4.50-5.90); RED CELL DISTRIBUTION WIDTH 16.4 % (11.6-17.2); WHITE BLOOD COUNT 28.9 TH/MM3 (4.0-11.0)
[2017-01-07 05:06] LABS: ALKALINE PHOSPHATASE 123 U/L (45-117); ALT (GPT) 24 U/L (12-78); ANION GAP 9 MEQ/L (5-15); AST (GOT) 17 U/L (15-37); BICARBONATE 24.6 MEQ/L (21.0-32.0); BLOOD UREA NITROGEN 19 MG/DL (7-18); CHLORIDE 100 MEQ/L (98-107); GLOMERULAR FILTRATION RATE 82 ML/MIN (>89); MAGNESIUM 2.5 MG/DL (1.5-2.5); POTASSIUM 3.7 MEQ/L (3.5-5.1); SODIUM (NA) 134 MEQ/L (136-145); TOTAL BILIRUBIN ADULT 0.3 MG/DL (0.2-1.0)
[2017-01-07 05:12] LABS: BLOOD GAS BASE EXCESS -2.2 mmol/L (-2-2); BLOOD GAS CARBOXYHEMOGLOBIN 1.2 % (0-4); BLOOD GAS HCO3 22 mmol/L (22-26); BLOOD GAS METHEMOGLOBIN 0.9 % (0-2); BLOOD GAS O2 HGB SATURATION 97 % (90-100); BLOOD GAS OXYGEN CONTENT 16.2 Vol % (12.0-20.0); BLOOD GAS PCO2 37 mmHg (38-42); BLOOD GAS PO2 136 mmHg (61-120); BLOOD GAS TOTAL HGB 11.8 G/DL (12.0-16.0); CRITICAL VALUE NO; OXYGEN DEVICE VENTILATOR; TEMP CORR TO 98.6
[2017-01-07 05:13] LABS: DRAW SITE LT BRACHIAL; FIO2 40 %; NUMBER OF ARTERIAL PUNCTURES 1; STAT NO; VENT SETTINGS PRVC/AC
[2017-01-07] MEDS: HYDROCORTISONE SOD SUCCINATE 100 MG VIAL IV PUSH SCH ×3 (05:58→20:35)
[2017-01-07] MEDS: INSULIN NovoLIN REGULAR SUPPLEMENTAL SCALE SQ SCH ×4 (05:59→21:00)
[2017-01-07] MEDS: VANCOMYCIN INJ 1,250 MG in SODIUM CHLOR 0.9% 250 ML INJ 250 ML IV SCH ×2 (05:59→17:24)
[2017-01-07] MEDS: metroNIDAZOLE 500 MG INJ 100 ML IV SCH ×3 (05:59→20:36)
--- NOTE | 2017-01-07 07:54 | HHI.CCPN ---
Subjective Remarks/Hospital Course 76-year-old Male. Date of Admission 01/04/2017. 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 This Is 5 x 5 Cm. Covered in Blue Bandage. Patient Presents to [facility] after Being Discharged 01/02 with Altered Mental Status. 01/[address] abdomen pelvis which showed induration of the right kidney possibly past of possible pyelonephritis. UA was negative for infection. 2 cm cyst at the left kidney pole. Sigmoid diverticulosis. Degenerative disc disease lumbar spine. Patient did have a low-sodium 126 at that time.at that time, he was complaining of severe bilateral flank pain. Was associated after eating greasy food at [facility]. Associated with nausea and vomiting Saturday and Saturday prior to admission. He felt better the next morning was sent home on Levaquin. Day, patient was found confused and altered by his roommate this morning. Was transferred to [facility]. CT abdomen and pelvis revealed a right-sided 3.6 x 2.5 cm left 2.5 adrenal mass. Possible hemorrhage. Dilated esophagus with thickening, and dilated stomach, colon diverticula. Possible small bowel obstruction. NG tube was placed with 800cc brown gastric contents removed. /general surgery was consulted and has seen the patient for possible small bowel obstruction. Patient is room air, hypertensive requiring 40 mg labetalol. 01/05: Patient more agitated with fever 102, tachycardia worse, and diffuse wheezing, labored respiratory effort. Na 116. Received 100 ml 3% saline, lasix 40 mg, intubation and ventilation. Head CT and MRI normal aside from atrophy. 01/06: Tmax 98.7. Continued elevation in WBC count. ID consult to Dr. Salinas following, Flagyl was added to medication regime yesterday. The patient was placed on a 2% sodium infusion for hyponatremia. Coagulant studies still pending, no growth from blood cultures will obtain sputum culture today. Patient continues on vasopressor support requiring Phenylephrine. 01/07 Tmax 98.8. The patient went into A. fib RVR last night heart rate 150's, phenylephrine was increased, currently in A. fib rate controlled 90's. Phenylephrine continues to be infused at 60 mcgs. Sodium level 134, 2% sodium infusion discontinued. Objective Vital Signs Date Time Temp Pulse Resp B/P Pulse Ox O2 Delivery O2 Flow Rate FiO2 01/07/17 06:00 88 01/07/17 04:11 100 40 01/07/17 04:00 98.6 14 141/79 Arterial Line 01/06/17 19:00 Mechanical Ventilator Intake and Output 01/06/17 01/06/17 01/07/17 08:00 16:00 00:00 Intake Total 1654 ml 2240 ml 1626 ml Output Total 1100 ml 1000 ml 400 ml Balance 554 ml 1240 ml 1226 ml Result Diagram: 01/07/17 0322 01/07/17 0322 Other Results Microbiology Date/Time Procedure Status Source Growth 01/04/17 09:24 Legionella Antigen - Final Complete Urine Catheterized Urine PRESUMPTIVE NEGATIVE FOR LEGIONELLA P... 01/04/17 09:24 Streptococcus pneumoniae Antigen (M - Final Complete Urine Catheterized Urine PRESUMPTIVE NEGATIVE FOR STREPTOCOCCU... 01/04/17 15:05 Influenza Types A,B Antigen (SAMANTHA) - Final Complete Nasal Aspirate NEGATIVE FOR FLU A AND B ANTIGEN.... Laboratory Tests Test 01/06/17 01/07/17 15:08 05:00 Blood Gas Puncture Site ART LINE LT BRACHIAL Blood Gas Patient Temperature 98.6 98.6 Blood Gas HCO3 20 mmol/L 22 mmol/L (22-26) (22-26) Blood Gas Base Excess -2.9 mmol/L -2.2 mmol/L (-2-2) (-2-2) Blood Gas Oxygen Saturation 98 % (90-100) 97 % (90-100) Arterial Blood pH 7.46 7.39 (7.380-7.420) (7.380-7.420) Arterial Blood Partial 29 mmHg (38-42) 37 mmHg (38-42) Pressure CO2 Arterial Blood Partial 161 mmHg 136 mmHg Pressure O2 (61-120) (61-120) Arterial Blood Oxygen Content 16.8 Vol % 16.2 Vol % (12.0-20.0) (12.0-20.0) Arterial Blood 1.2 % (0-4) 1.2 % (0-4) Carboxyhemoglobin Arterial Blood Methemoglobin 0.8 % (0-2) 0.9 % (0-2) Blood Gas Hemoglobin 12.0 G/DL 11.8 G/DL (12.0-16.0) (12.0-16.0) Oxygen Delivery Device VENTILATOR VENTILATOR Blood Gas Ventilator Setting SEE NOTE PRVC/AC Blood Gas Inspired Oxygen 40 % 40 % Imaging Last Impressions Chest X-Ray 01/07/17 0000 Signed Impressions: Service Date/Time: Saturday, January 07, 2017 01:13 - CONCLUSION: 1. Cardiomegaly. Left lower lobe atelectasis versus pneumonia. 2. Cardiomegaly and findings of vascular congestion without overt failure. There has been no significant change when compared to the prior exam. Aneudy Dennis MD Head Magnetic Resonance Angiography 01/05/17 Signed Impressions: Service Date/Time: Thursday, January 05, 2017 14:37 - CONCLUSION: Normal examination. Esperanza Odell MD Abdomen MRI 01/05/17 0000 Signed Impressions: Service Date/Time: Thursday, January 05, 2017 14:37 - CONCLUSION: The bilateral adrenal masses have developed since the CT abdomen from 01/02/2017 and the most likely etiologies includes bilateral adrenal hemorrhage or possibly reactive hyperplasia. The exact etiology is not certain. Esperanza Odell MD Head CT 01/04/17 0848 Signed Impressions: Service Date/Time: Wednesday, January 04, 2017 08:58 - CONCLUSION: Unremarkable examination for each. Tyler Nagy MD Neck CT 01/04/17 0000 Signed Impressions: Service Date/Time: Wednesday, January 04, 2017 20:49 - CONCLUSION: Questionable thickening of the vocal cords. These can be directly inspected. Otherwise the study appears grossly normal for a noncontrast CT of the neck. Santos Whitley MD Lower Extremity Ultrasound 01/04/17 Signed Impressions: Service Date/Time: Wednesday, January 04, 2017 18:55 - CONCLUSION: Partially occlusive thrombus in the right superficial femoral, popliteal and peroneal veins. No thrombus is seen on the left side. Santos Whitley MD Chest CT 01/04/17 0000 Signed Impressions: Service Date/Time: Wednesday, January 04, 2017 20:50 - CONCLUSION: 1. Mild bilateral pleural effusions with suspected accompanying areas of atelectasis or consolidation at the lung bases. 2. Coronary artery calcifications. Santos Whitley MD Brain MRI 01/04/17 0000 Signed Impressions: Service Date/Time: Wednesday, January 04, 2017 21:19 - CONCLUSION: Atrophy and mild chronic white matter changes. No acute infarct or other acute intracranial abnormality. Santos Arce MD Abdomen/Pelvis CT 01/04/17 0000 Signed Impressions: Service Date/Time: Wednesday, January 04, 2017 10:32 - CONCLUSION: 1. New abnormal bowel gas pattern of concern for distal small bowel obstruction. 2. New bilateral adrenal masses which were not present 2 days ago. The differential includes adrenal hemorrhage and/or hyperplasia. 3. New small pleural effusions right greater than left. 4. Mild diverticulosis. Tyler Nagy MD Last Impressions Head CT 01/04/17 0848 Signed Impressions: Service Date/Time: Wednesday, January 04, 2017 08:58 - CONCLUSION: Unremarkable examination for each. Tyler Nagy MD Chest X-Ray 01/04/17 0000 Signed Impressions: Service Date/Time: Wednesday, January 04, 2017 08:59 - CONCLUSION: No acute disease. There is no evidence of pneumonia. Tyler Nagy MD Abdomen/Pelvis CT 01/04/17 0000 Signed Impressions: Service Date/Time: Wednesday, January 04, 2017 10:32 - CONCLUSION: 1. New abnormal bowel gas pattern of concern for distal small bowel obstruction. 2. New bilateral adrenal masses which were not present 2 days ago. The differential includes adrenal hemorrhage and/or hyperplasia. 3. New small pleural effusions right greater than left. 4. Mild diverticulosis. Tyler Nagy MD Objective Remarks Phenylephrine 80 mcgs Propofol 50 mcgs Fentanyl 100 mcgs GENERAL: 76-year-old critically ill appearing male, intubated and sedated SKIN: Warm, flushed, damp. Ecchymotic region to right lower extremity/medial ankle with 5 x [address] Some chronic venous stasis wound HEAD: Atraumatic. Normocephalic. EYES: Pupils equal and round about 4 mm bilaterally and minimally reactive. ENT: No nasal bleeding or discharge. Mucous membranes pink and moist. NECK: Trachea midline. No stridor but transmitted wheezes. CARDIOVASCULAR: Regular rate and irregularly irregular rhythm. S1, S2. No S4. rate 90's, RESPIRATORY: Mechanical ventilation Clear to auscultation bilaterally. No accessory muscle movement GASTROINTESTINAL: Abdomen remains protuberant and distended. No guarding. Nontender. Hypoactive bowel sounds are appreciated NG tube to LIWS MUSCULOSKELETAL: Extremities trace lower extremity edema. Right medial ankle 5 x 5 cm covered in BLUE disc. Clammy. NEUROLOGICAL: RASS -2. Moving extremities 4, PSYCHIATRIC: N/A Urinary Catheter: Yes Parada insert reason: Measure Accurate Output Date of Insertion: Jan 04, 2017 Vascular Central Line Catheter: Yes Date of Insertion: Jan 04, 2017 Side: Left Location: Subclavian A/P Assessment and Plan Neuro/Psych: Acute toxic metabolic encephalopathy History of EtOH Depression/anxiety CT head 01/04 reveals no acute intracranial abnormalities Holding bupropion 150 mg by mouth daily Hold Ultram and Percocets with altered mental status currently Thiamine/folate/multivitamin daily with EtOH use MRI/A brain 01/05- normal exam Monitor for alcohol withdrawal-seizure precautions CV: Hypertension Right lower extremity DVT As needed hydralazine/labetalol/Nitropaste to maintain systolic blood pressure was 160 Home medication of Lopressor 25 mg BID- on hold Follow up on troponin 0.02.. Will trend 01/05 right lower extremity Dopplers ultrasound for DVT-partially occlusive thrombus right SFA, popliteal and peroneal veins Resp: Acute respiratory insufficiency Acute hypoxic respiratory failure requiring intubation Nasal cannula to maintain saturations greater than equal to 92% Mechanical ventilation 14/500/0.40/5 Ventilator bundle Chest x-ray 01/04 reveals no acute cardiopulmonary findings Required intubation 01/05 for labored breathing due to bronchospasm. GI: Small bowel obstruction versus ileus CT abd/pelvis 01/04 revealed right 3.6 x 2.4 cm and left 2.5 x 1.4 cm adrenal masses. Distal esophagus with thickening. Dilated stomach.: Colonic Diverticuli. Compressed colon. Possible bowel obstruction. Dr. Sosa/general surgery consulted-medical management at this time. Tentative plan for possible small bowel follow-through Negative ultrasound gallbladder 01/02 : Follow-up ADH level Parada has been placed for accurate I's and O's in a critically ill patient UA with proteinuria see below Endo: Adrenal mass -bilateral possible hemorrhage B/L adrenal hemorrhage See CT abdomen/pelvis results above. Cosyntropin test ordered. Results pending ADH ordered -results pending Noted hypertensive. Potassium normal. Continue hydrocortisone 100 mg 3 times a day Sliding-scale insulin with Accu-Cheks to maintain euglycemia/low regimen Renal: Proteinuria Patient states he needed kidney biopsy in past but refused Follow-up a.m. BMP Accurate I's and O's Monitor urine output Heme: Leukocytosis Thrombocytosis Chronic Xarelto use Follow CBC name. Monitor trends. 25-> 32-> 28 today, downtrending .01/06 Flagyl added to medication regimen Unknown if infectious etiology. ID consult toDr. Salinas UA negative. Procoagulant studies [id number] results ID: Receive 1 dose Rocephin in ED. Previously on Levaquin daily Vancomycin/cefepime day 3, Flagyl day 2 Monitor for infection Pertinent cultures 01/04 - blood cultures 2 - pending 01/04 - UA - negative 01/02 - blood cultures 2 - pending FEN: Hyponatremia - hypoosmolar 01/04 Check cortisol/cosyntropin test otherwise likely SIADH TSH was 1.12. Uric acid 3.0. Lipid panel ordered. 2% NaCl infusion-discontinued Continue 0.9 sodium chloride at 84 cc/hour Continue every 6 hours sodium level monitoring MSK: Right lower extremity wound Wound care evaluation Access - Utilize peripheral IV. Left subclavian 01/04. Radial a line removed 2 in 2 days , secondary to clotting Prophylaxis - GI - Protonix - DVT - SCD/holding Xarelto in light of possible adrenal hemorrhage This patient remains critically ill with one or more organ systems which are or may become a threat to life. I have spent in excess of 41 minutes discontinuously in the care and management of this patient. This time is exclusive of procedures, and includes, but is not limited to, evaluation of the patient, review of the medical record, discussions with family, consultants, nursing staff, or respiratory therapy, and documentation in the medical record. Prognosis guarded, continues to deteriorate. Physician Cari Washington MD January 07, 2017 07:54
[2017-01-07] MEDS: CHLORHEXIDINE 0.12% (ORAL KIT) 15 ML CUP MT SCH ×2 (08:00→20:35)
[2017-01-07] MEDS: ARTIFICIAL TEARS OPTH SOLN 15 ML BTL EACH EYE SCH ×3 (08:07→17:07)
[2017-01-07] MEDS: SODIUM CHLORIDE 0.9% FLUSH 10 ML FLUSH IV FLUSH SCH ×2 (08:07→20:41)
[2017-01-07] MEDS: THIAMINE INJ 100 MG in SODIUM CHLORIDE 0.9% INJ 100 ML IV SCH (08:13)
[2017-01-07] MEDS: FOLIC ACID 1 MG TAB PO SCH (08:14)
[2017-01-07] MEDS: DOCUSATE SODIUM 100 MG CAP PO SCH ×2 (08:14→20:36)
[2017-01-07] MEDS: PANTOPRAZOLE SODIUM 40 MG VIAL IV SCH (08:14)
[2017-01-07] MEDS: MULTIVITAMIN TAB PO SCH (08:14)
[2017-01-07] MEDS: SODIUM CHLOR 0.9% 1000 ML INJ 1,000 ML IV SCH (12:59)
--- NOTE | 2017-01-07 15:35 | HHI.PR ---
Subjective Subjective Notes Intubated/Sedated ANANT Baker at bedside Objective Vitals/I&O Vital Signs Date Time Temp Pulse Resp B/P Pulse Ox O2 Delivery O2 Flow Rate FiO2 01/07/17 12:00 50 01/07/17 12:00 102 01/07/17 12:00 98.9 14 117/84 100 01/07/17 07:00 Mechanical Ventilator Labs Laboratory Tests Test 01/06/17 01/06/17 01/07/17 01/07/17 17:45 23:23 03:22 05:00 Sodium Level 130 132 134 Phosphorus Level 3.1 2.5 White Blood Count 28.9 Red Blood Count 3.82 Hemoglobin 11.8 Hematocrit 34.5 Mean Corpuscular Volume 90.3 Mean Corpuscular Hemoglobin 31.0 Mean Corpuscular Hemoglobin 34.3 Concent Red Cell Distribution Width 16.4 Platelet Count 429 Mean Platelet Volume 8.3 Neutrophils (%) (Auto) 94.6 Lymphocytes (%) (Auto) 1.3 Monocytes (%) (Auto) 3.8 Eosinophils (%) (Auto) 0.1 Basophils (%) (Auto) 0.2 Neutrophils # (Auto) 27.3 Lymphocytes # (Auto) 0.4 Monocytes # (Auto) 1.1 Eosinophils # (Auto) 0.0 Basophils # (Auto) 0.1 CBC Comment DIFF FINAL Differential Comment Potassium Level 3.7 Chloride Level 100 Carbon Dioxide Level 24.6 Anion Gap 9 Blood Urea Nitrogen 19 Creatinine 0.90 Estimat Glomerular Filtration 82 Rate Random Glucose 176 Calcium Level 7.8 Magnesium Level 2.5 Total Bilirubin 0.3 Aspartate Amino Transf 17 (AST/SGOT) Alanine Aminotransferase 24 (ALT/SGPT) Alkaline Phosphatase 123 Total Protein 5.6 Albumin 2.2 Blood Gas Puncture Site LT BRACHIAL Blood Gas Patient Temperature 98.6 Blood Gas HCO3 22 Blood Gas Base Excess -2.2 Blood Gas Oxygen Saturation 97 Arterial Blood pH 7.39 Arterial Blood Partial 37 Pressure CO2 Arterial Blood Partial 136 Pressure O2 Arterial Blood Oxygen Content 16.2 Arterial Blood 1.2 Carboxyhemoglobin Arterial Blood Methemoglobin 0.9 Blood Gas Hemoglobin 11.8 Oxygen Delivery Device VENTILATOR Blood Gas Ventilator Setting PRVC/AC Blood Gas Inspired Oxygen 40 Date/Time Procedure Status Source Growth 01/06/17 20:44 Gram Stain - Final Resulted Sputum Endotracheal 01/06/17 20:44 Sputum Culture - Preliminary Resulted Sputum Endotracheal No growth. 01/04/17 15:05 Influenza Types A,B Antigen (SAMANTHA) - Final Complete Nasal Aspirate NEGATIVE FOR FLU A AND B ANTIGEN.... 01/04/17 09:35 Aerobic Blood Culture - Preliminary Resulted Blood Peripheral NO GROWTH IN 3 DAYS 01/04/17 09:35 Anaerobic Blood Culture - Preliminary Resulted Blood Peripheral NO GROWTH IN 3 DAYS 01/04/17 09:24 Legionella Antigen - Final Complete Urine Catheterized Urine PRESUMPTIVE NEGATIVE FOR LEGIONELLA P... 01/04/17 09:24 Streptococcus pneumoniae Antigen (M - Final Complete Urine Catheterized Urine PRESUMPTIVE NEGATIVE FOR STREPTOCOCCU... Cardiovascular: Regular Lungs: Clear Abdomen: Other (distended ) Extremities: Other (generalized edema ) A/P Assessment and Plan 76 year old male, MOSF; likely ileus secondary to medica conditions -Consider upper GI SBFT once more stable -will continue to follow. -continue NG tube to LIWS Attending Statement The exam, history, and the medical decision-making described in the above note were completed with the assistance of the mid-level provider. I reviewed and agree with the findings presented. I attest that I had a [id number] encounter with the patient on the same day, and personally performed and documented my assessment and findings in the medical record. patient with soft abdomen, non-tender, continue to follow patient, no surgical intervention needed Nancy Benson January 07, 2017 15:35 Bharat Saleh MD February 05, 2017 11:21
--- NOTE | 2017-01-07 17:18 | HHI.IDPN ---
Subjective Subjective Remarks intubated on mech vent less pressors afebrile Antibiotics flagyl vanco cefepime Allergies: Coded Allergies: No Known Allergies (Unverified , 01/02/17) Objective . Vital Signs Date Time Temp Pulse Resp B/P Pulse Ox O2 Delivery O2 Flow Rate FiO2 01/07/17 16:00 108 01/07/17 16:00 50 01/07/17 16:00 97.9 98 16 125/76 100 01/07/17 15:52 99 40 01/07/17 14:00 88 01/07/17 12:00 50 01/07/17 12:00 102 01/07/17 12:00 98.9 101 14 117/84 100 01/07/17 11:38 100 40 01/07/17 10:00 90 01/07/17 08:49 100 40 01/07/17 08:00 97.7 84 14 130/84 99 01/07/17 08:00 50 01/07/17 08:00 75 01/07/17 07:00 100 Mechanical Ventilator 40 01/07/17 06:00 88 01/07/17 04:11 100 40 01/07/17 04:00 92 01/07/17 04:00 98.6 92 14 141/79 100 Arterial Line 01/07/17 04:00 50 01/07/17 02:00 94 01/07/17 01:13 100 40 01/07/17 00:00 50 01/07/17 00:00 98.7 92 14 136/ 99 136/87 01/07/17 00:00 92 01/06/17 22:00 98 01/06/17 20:13 99 40 01/06/17 20:00 102 01/06/17 20:00 50 01/06/17 20:00 98.8 102 14 106/90 99 01/06/17 19:00 99 Mechanical Ventilator 50 01/06/17 18:00 112 01/06/17 01/06/17 01/07/17 15:00 23:00 07:00 Intake Total 2240 ml 1626 ml 1579 ml Output Total 1000 ml 400 ml 875 ml Balance 1240 ml 1226 ml 704 ml IV Total 2240 ml 1626 ml 1579 ml Output Urine Total 850 ml 375 ml 850 ml Gastric Drainage Total 150 ml 25 ml 25 ml # Bowel Movements 0 0 0 . Laboratory Tests Test 01/06/17 01/07/17 05:13 03:22 White Blood Count 32.3 TH/MM3 28.9 TH/MM3 Red Blood Count 3.97 MIL/MM3 3.82 MIL/MM3 Hemoglobin 11.8 GM/DL 11.8 GM/DL Hematocrit 35.1 % 34.5 % Mean Corpuscular Volume 88.5 FL 90.3 FL Mean Corpuscular Hemoglobin 29.7 PG 31.0 PG Mean Corpuscular Hemoglobin 33.6 % 34.3 % Concent Red Cell Distribution Width 16.0 % 16.4 % Platelet Count 556 TH/MM3 429 TH/MM3 Mean Platelet Volume 7.7 FL 8.3 FL Neutrophils (%) (Auto) 94.7 % 94.6 % Lymphocytes (%) (Auto) 1.6 % 1.3 % Monocytes (%) (Auto) 3.6 % 3.8 % Eosinophils (%) (Auto) 0.0 % 0.1 % Basophils (%) (Auto) 0.1 % 0.2 % Neutrophils # (Auto) 30.6 TH/MM3 27.3 TH/MM3 Lymphocytes # (Auto) 0.5 TH/MM3 0.4 TH/MM3 Monocytes # (Auto) 1.2 TH/MM3 1.1 TH/MM3 Eosinophils # (Auto) 0.0 TH/MM3 0.0 TH/MM3 Basophils # (Auto) 0.0 TH/MM3 0.1 TH/MM3 CBC Comment AUTO DIFF DIFF FINAL Differential Total Cells 100 Counted Neutrophils % (Manual) 88 % Band Neutrophils % 7 % Lymphocytes % 2 % Monocytes % 3 % Neutrophils # (Manual) 30.7 TH/MM3 Differential Comment FINAL DIFF MANUAL Toxic Vacuolation PRESENT Platelet Estimate HIGH Platelet Morphology Comment NORMAL Ovalocytes 1+ Claridge Cells 1+ Laboratory Tests Test 01/05/17 01/05/17 01/06/17 01/06/17 17:45 23:10 05:13 11:45 Sodium Level 122 MEQ/L 126 MEQ/L 129 MEQ/L 130 MEQ/L Potassium Level 3.6 MEQ/L Chloride Level 96 MEQ/L Carbon Dioxide Level 23.4 MEQ/L Anion Gap 10 MEQ/L Blood Urea Nitrogen 17 MG/DL Creatinine 0.85 MG/DL Estimat Glomerular Filtration 88 ML/MIN Rate Random Glucose 160 MG/DL Calcium Level 8.0 MG/DL Phosphorus Level 2.4 MG/DL Magnesium Level 2.3 MG/DL Total Bilirubin 0.4 MG/DL Aspartate Amino Transf 24 U/L (AST/SGOT) Alanine Aminotransferase 28 U/L (ALT/SGPT) Alkaline Phosphatase 104 U/L Total Protein 5.6 GM/DL Albumin 2.1 GM/DL Test 01/06/17 01/06/17 01/07/17 17:45 23:23 03:22 Sodium Level 130 MEQ/L 132 MEQ/L 134 MEQ/L Phosphorus Level 3.1 MG/DL 2.5 MG/DL Potassium Level 3.7 MEQ/L Chloride Level 100 MEQ/L Carbon Dioxide Level 24.6 MEQ/L Anion Gap 9 MEQ/L Blood Urea Nitrogen 19 MG/DL Creatinine 0.90 MG/DL Estimat Glomerular Filtration 82 ML/MIN Rate Random Glucose 176 MG/DL Calcium Level 7.8 MG/DL Magnesium Level 2.5 MG/DL Total Bilirubin 0.3 MG/DL Aspartate Amino Transf 17 U/L (AST/SGOT) Alanine Aminotransferase 24 U/L (ALT/SGPT) Alkaline Phosphatase 123 U/L Total Protein 5.6 GM/DL Albumin 2.2 GM/DL Microbiology Date/Time Procedure Status Source Growth 01/06/17 20:44 Gram Stain - Final Resulted Sputum Endotracheal 01/06/17 20:44 Sputum Culture - Preliminary Resulted Sputum Endotracheal No growth. Imaging Last Impressions Chest X-Ray 01/07/17 0000 Signed Impressions: Service Date/Time: Saturday, January 07, 2017 01:13 - CONCLUSION: 1. Cardiomegaly. Left lower lobe atelectasis versus pneumonia. 2. Cardiomegaly and findings of vascular congestion without overt failure. There has been no significant change when compared to the prior exam. Aneudy Dennis MD Head Magnetic Resonance Angiography 01/05/17 0000 Signed Impressions: Service Date/Time: Thursday, January 05, 2017 14:37 - CONCLUSION: Normal examination. Esperanza Odell MD Abdomen MRI 01/05/17 0000 Signed Impressions: Service Date/Time: Thursday, January 05, 2017 14:37 - CONCLUSION: The bilateral adrenal masses have developed since the CT abdomen from 01/02/2017 and the most likely etiologies includes bilateral adrenal hemorrhage or possibly reactive hyperplasia. The exact etiology is not certain. Esperanza Odell MD Head CT 01/04/17 0848 Signed Impressions: Service Date/Time: Wednesday, January 04, 2017 08:58 - CONCLUSION: Unremarkable examination for each. Tyler Nagy MD Neck CT 01/04/17 0000 Signed Impressions: Service Date/Time: Wednesday, January 04, 2017 20:49 - CONCLUSION: Questionable thickening of the vocal cords. These can be directly inspected. Otherwise the study appears grossly normal for a noncontrast CT of the neck. Santos Whitley MD Lower Extremity Ultrasound 01/04/17 0000 Signed Impressions: Service Date/Time: Wednesday, January 04, 2017 18:55 - CONCLUSION: Partially occlusive thrombus in the right superficial femoral, popliteal and peroneal veins. No thrombus is seen on the left side. Santos Whitley MD Chest CT 01/04/17 0000 Signed Impressions: Service Date/Time: Wednesday, January 04, 2017 20:50 - CONCLUSION: 1. Mild bilateral pleural effusions with suspected accompanying areas of atelectasis or consolidation at the lung bases. 2. Coronary artery calcifications. Santos Whitley MD Brain MRI 01/04/17 0000 Signed Impressions: Service Date/Time: Wednesday, January 04, 2017 21:19 - CONCLUSION: Atrophy and mild chronic white matter changes. No acute infarct or other acute intracranial abnormality. Santos Arce MD Abdomen/Pelvis CT 01/04/17 0000 Signed Impressions: Service Date/Time: Wednesday, January 04, 2017 10:32 - CONCLUSION: 1. New abnormal bowel gas pattern of concern for distal small bowel obstruction. 2. New bilateral adrenal masses which were not present 2 days ago. The differential includes adrenal hemorrhage and/or hyperplasia. 3. New small pleural effusions right greater than left. 4. Mild diverticulosis. Tyler Nagy MD Physical Exam CONSTITUTIONAL/GENERAL: This is an adequately nourished patient, sedated intubated on [facility] vent TUBES/LINES/DRAINS: SKIN: No jaundice, rashes, or lesions.Vitiligo involving hands, feet primarily Skin temperature appropriate BUE, feet are very cold to touch . Not diaphoretic. HEAD: Atraumatic. Normocephalic. EYES: Pupils equal and round and reactive. Extraocular motions intact. No scleral icterus. No injection or drainage. Fundi not examined. ENT: Hearing not tested. Nose without bleeding or purulent drainage. Oral mucosae moist without visible erythema, exudates, masses, or lesions. NG tube to suction with clear yellowish d/c NECK: Trachea midline. Supple, nontender. No palpable thyroid enlargement or nodularity. CARDIOVASCULAR: Regular rate and rhythm without murmurs, gallops, or rubs. No JVD. Peripheral pulses symmetric. RESPIRATORY/CHEST: Symmetric, unlabored respirations. Clear to auscultation. Breath sounds equal bilaterally. No wheezes, rales, or rhonchi. GASTROINTESTINAL: Abdomen fairly soft, no reaction to palpation, less distended. no tympany to palpation No bowel sounds. RN reports some hypoactive sounds, flatus No hepato-splenomegaly, or palpable masses. No guarding. Bowel sounds present. GENITOURINARY: Without palpable bladder distension. Parada catheter in place with clear yellow urine MUSCULOSKELETAL: Extremities without clubbing, cyanosis, or edema. Cold feet No calf tenderness. No mottling or clubbing. LYMPHATICS: No palpable cervical or supraclavicular adenopathy. NEUROLOGICAL: sedated; unresponsive PSYCHIATRIC: not possible to assess Assessment & Plan Remarks Assessment and Plan Sepsis - source is likley intra- abdominal: small bowel obstruction vs ileus - transition zone present - distal esophagus thickening ? significance Acute VDRF - leukocytosis, leukemoid reaction - slightly improved - cont cefepime - cont vancomycin - cont flagyl - monitor clinically - suggest to repeat CT a/p if cont to be critically ill. dw Dr Santos Salinas,Ilana Martinez MD January 07, 2017 17:18
--- NOTE | 2017-01-07 22:46 | EKG ---
Date Performed: 01/07/2017 Time Performed: 00:59:10 PTAGE: 76 years EKG: Atrial fibrillation with uncontrolled ventricular response. Possible left anterior fascicul ar block Lateral T wave changes are nonspecific Abnormal ECG NO PREVIOUS TRACING DOCTOR: Austen Wynn Interpretating Date/Time 01/07/2017 22:46:08
[2017-01-08] VITALS (20 sets, daily range): BP systolic 111–170; BP diastolic 72–99; PULSE 67–144; RESP 12–16; TEMP 97.7–99.1; O2SAT 93–100
[2017-01-08] MEDS: SODIUM CHLOR 0.9% 1000 ML INJ 1,000 ML IV SCH ×3 (02:03→23:42)
[2017-01-08] MEDS ORDERED: AMIODARONE 150 MG/D5W 97 ML BOLUS 60 MINUTES IV ONE ×2 (02:15)
[2017-01-08] MEDS: PROPOFOL 1000 MG/100 ML IV SCH ×4 (03:00→17:38)
[2017-01-08] MEDS: RESP: ALBUTEROL 2.5 MG/IPRATROPIUM 0.5 MG NEB (SCH) INH ×3 (03:16→11:24)
[2017-01-08] MEDS: CHLORHEXIDINE GLUCONATE 2 % 1 PACK (2 CLOTHS) TOP SCH (04:00)
[2017-01-08] MEDS: CEFEPIME INJ 2,000 MG in SODIUM CHLORIDE 0.9% INJ 100 ML IV SCH ×2 (04:38→16:42)
[2017-01-08 04:45] LABS: AUTOMATED NEUTROPHIL # 23.5 TH/MM3 (1.8-7.7); EOSINOPHIL % 0.1 % (0.0-4.0); HEMO FLAGS DIFF FINAL; LYMPH % 2.2 % (9.0-44.0); LYMPHOCYTE # 0.5 TH/MM3 (1.0-4.8); MEAN CORPUSCULAR HEMOGLOBIN 30.9 PG (27.0-34.0); MEAN CORPUSCULAR HGB CONC 33.9 % (32.0-36.0); MONO % 4.4 % (0.0-8.0); NEUT % 93.3 % (16.0-70.0); PLATELET COUNT 410 TH/MM3 (150-450); RED BLOOD COUNT 3.84 MIL/MM3 (4.50-5.90); RED CELL DISTRIBUTION WIDTH 16.8 % (11.6-17.2); WHITE BLOOD COUNT 25.2 TH/MM3 (4.0-11.0)
[2017-01-08] MEDS: AMIODARONE INJ 450 MG in DEXTROSE 5% IN WATE(EXCEL) INJ 250 ML IV SCH ×2 (04:50)
[2017-01-08 05:06] LABS: BICARBONATE 22.4 MEQ/L (21.0-32.0); MAGNESIUM 2.6 MG/DL (1.5-2.5); POTASSIUM 3.9 MEQ/L (3.5-5.1)
[2017-01-08] MEDS: HYDROCORTISONE SOD SUCCINATE 100 MG VIAL IV PUSH SCH ×3 (05:29→20:41)
[2017-01-08] MEDS: metroNIDAZOLE 500 MG INJ 100 ML IV SCH ×3 (05:30→20:43)
[2017-01-08] MEDS: VANCOMYCIN INJ 1,250 MG in SODIUM CHLOR 0.9% 250 ML INJ 250 ML IV SCH ×2 (05:35→17:38)
--- NOTE | 2017-01-08 05:40 | RADRPT ---
EXAM DATE/TIME: 01/08/2017 04:50 [place] COMPARISON: CHEST SINGLE AP, January 07, 2017, 1:13. INDICATIONS : Respiratory distress. MEDICAL HISTORY : Hypertension. SURGICAL HISTORY : None. ENCOUNTER: Subsequent ACUITY: 4 - 6 days PAIN SCORE: Non-responsive. LOCATION: Bilateral chest FINDINGS: The cardiac silhouette is enlarged in transverse diameter. Endotracheal tube is at the orifice of rig ht mainstem bronchus and should be retracted 3 lode miner left sided subclavian vein catheter is in place wi thout pneumothorax with its tip in the superior vena cava. There is left lower lobe atelectasis versu s pneumonia. The findings are improved when compared with the prior exam. There is subsegmental atele ctasis in the right base. CONCLUSION: Endotracheal tube is above and should be retracted 3 cm. Improving left basilar atelectasis Aneudy Dennis MD on January 08, 2017 at 5:37 Board Certified Radiologist. This report was verified electronically.
[2017-01-08] MEDS: INSULIN NovoLIN REGULAR SUPPLEMENTAL SCALE SQ SCH ×4 (06:48→20:42)
--- NOTE | 2017-01-08 07:45 | HHI.CCPN ---
Subjective Remarks/Hospital Course 76-year-old Male. Date of Admission 01/04/2017. 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 This Is 5 x 5 Cm. Covered in Blue Bandage. Patient Presents to [facility] after Being Discharged 01/02 with Altered Mental Status. 01/[address] abdomen pelvis which showed induration of the right kidney possibly past of possible pyelonephritis. UA was negative for infection. 2 cm cyst at the left kidney pole. Sigmoid diverticulosis. Degenerative disc disease lumbar spine. Patient did have a low-sodium 126 at that time.at that time, he was complaining of severe bilateral flank pain. Was associated after eating greasy food at [facility]. Associated with nausea and vomiting Saturday and Saturday prior to admission. He felt better the next morning was sent home on Levaquin. Day, patient was found confused and altered by his roommate this morning. Was transferred to [facility]. CT abdomen and pelvis revealed a right-sided 3.6 x 2.5 cm left 2.5 adrenal mass. Possible hemorrhage. Dilated esophagus with thickening, and dilated stomach, colon diverticula. Possible small bowel obstruction. NG tube was placed with 800cc brown gastric contents removed. /general surgery was consulted and has seen the patient for possible small bowel obstruction. Patient is room air, hypertensive requiring 40 mg labetalol. 01/05: Patient more agitated with fever 102, tachycardia worse, and diffuse wheezing, labored respiratory effort. Na 116. Received 100 ml 3% saline, lasix 40 mg, intubation and ventilation. Head CT and MRI normal aside from atrophy. 01/06: Tmax 98.7. Continued elevation in WBC count. ID consult to Dr. Salinas following, Flagyl was added to medication regime yesterday. The patient was placed on a 2% sodium infusion for hyponatremia. Coagulant studies still pending, no growth from blood cultures will obtain sputum culture today. Patient continues on vasopressor support requiring Phenylephrine. 01/07 Tmax 98.8. The patient went into A. fib RVR last night heart rate 150's, phenylephrine was increased, currently in A. fib rate controlled 90's. Phenylephrine continues to be infused at 60 mcgs. Sodium level 134, 2% sodium infusion discontinued. 01/08: Tachycardia persists. Renal function acceptable, lytes require repletion , add K. Objective Vital Signs Date Time Temp Pulse Resp B/P Pulse Ox O2 Delivery O2 Flow Rate FiO2 01/08/17 06:24 100 40 01/08/17 06:00 112 01/08/17 04:00 98.8 16 111/85 01/07/17 19:00 Mechanical Ventilator Intake and Output 01/07/17 01/07/17 01/08/17 08:00 16:00 00:00 Intake Total 1579 ml 1483 ml 1470 ml Output Total 875 ml 800 ml 200 ml Balance 704 ml 683 ml 1270 ml Result Diagram: 01/08/17 0420 01/08/17 0420 Imaging Last Impressions Chest X-Ray 01/07/17 0000 Signed Impressions: Service Date/Time: Saturday, January 07, 2017 01:13 - CONCLUSION: 1. Cardiomegaly. Left lower lobe atelectasis versus pneumonia. 2. Cardiomegaly and findings of vascular congestion without overt failure. There has been no significant change when compared to the prior exam. Aneudy Dennis MD Head Magnetic Resonance Angiography 01/05/17 0000 Signed Impressions: Service Date/Time: Thursday, January 05, 2017 14:37 - CONCLUSION: Normal examination. Esperanza Odell MD Abdomen MRI 01/05/17 0000 Signed Impressions: Service Date/Time: Thursday, January 05, 2017 14:37 - CONCLUSION: The bilateral adrenal masses have developed since the CT abdomen from 01/02/2017 and the most likely etiologies includes bilateral adrenal hemorrhage or possibly reactive hyperplasia. The exact etiology is not certain. Esperanza Odell MD Head CT 01/04/17 0848 Signed Impressions: Service Date/Time: Wednesday, January 04, 2017 08:58 - CONCLUSION: Unremarkable examination for each. Tyler Nagy MD Neck CT 01/04/17 0000 Signed Impressions: Service Date/Time: Wednesday, January 04, 2017 20:49 - CONCLUSION: Questionable thickening of the vocal cords. These can be directly inspected. Otherwise the study appears grossly normal for a noncontrast CT of the neck. Santos Whitley MD Lower Extremity Ultrasound 01/04/17 0000 Signed Impressions: Service Date/Time: Wednesday, January 04, 2017 18:55 - CONCLUSION: Partially occlusive thrombus in the right superficial femoral, popliteal and peroneal veins. No thrombus is seen on the left side. Santos Whitley MD Chest CT 01/04/17 0000 Signed Impressions: Service Date/Time: Wednesday, January 04, 2017 20:50 - CONCLUSION: 1. Mild bilateral pleural effusions with suspected accompanying areas of atelectasis or consolidation at the lung bases. 2. Coronary artery calcifications. Santos Whitley MD Brain MRI 01/04/17 0000 Signed Impressions: Service Date/Time: Wednesday, January 04, 2017 21:19 - CONCLUSION: Atrophy and mild chronic white matter changes. No acute infarct or other acute intracranial abnormality. Santos Arce MD Abdomen/Pelvis CT 01/04/17 0000 Signed Impressions: Service Date/Time: Wednesday, January 04, 2017 10:32 - CONCLUSION: 1. New abnormal bowel gas pattern of concern for distal small bowel obstruction. 2. New bilateral adrenal masses which were not present 2 days ago. The differential includes adrenal hemorrhage and/or hyperplasia. 3. New small pleural effusions right greater than left. 4. Mild diverticulosis. Tyler Nagy MD Last Impressions Head CT 01/04/17 0848 Signed Impressions: Service Date/Time: Wednesday, January 04, 2017 08:58 - CONCLUSION: Unremarkable examination for each. Tyler Nagy MD Chest X-Ray 01/04/17 0000 Signed Impressions: Service Date/Time: Wednesday, January 04, 2017 08:59 - CONCLUSION: No acute disease. There is no evidence of pneumonia. Tyler Nagy MD Abdomen/Pelvis CT 01/04/17 0000 Signed Impressions: Service Date/Time: Wednesday, January 04, 2017 10:32 - CONCLUSION: 1. New abnormal bowel gas pattern of concern for distal small bowel obstruction. 2. New bilateral adrenal masses which were not present 2 days ago. The differential includes adrenal hemorrhage and/or hyperplasia. 3. New small pleural effusions right greater than left. 4. Mild diverticulosis. Tyler Nagy MD Objective Remarks Phenylephrine 110 mcgs Propofol 50 mcgs Fentanyl 100 mcgs GENERAL: 76-year-old critically ill appearing male, intubated and sedated SKIN: Warm, flushed, damp. Ecchymotic region to right lower extremity/medial ankle. Chronic venous stasis wound HEAD: Atraumatic. Normocephalic. EYES: Pupils equal and round about 3 mm bilaterally and minimally reactive. ENT: No nasal bleeding or discharge. Mucous membranes pink and moist. NECK: Trachea midline. No stridor but transmitted wheezes. CARDIOVASCULAR: Regular rate and irregularly irregular rhythm. S1, S2. No S4. rate 120s's, RESPIRATORY: Mechanical ventilation Clear to auscultation bilaterally. No wheezes. GASTROINTESTINAL: Abdomen remains distended. No guarding. Nontender. Hypoactive bowel sounds are appreciated NG tube to LIS MUSCULOSKELETAL: Extremities trace lower extremity edema. Right medial ankle 5 x 5 cm covered in BLUE disc. Clammy. NEUROLOGICAL: Moving extremities 4, opens eyes. Date of Insertion: Jan 04, 2017 Date of Insertion: Jan 04, 2017 Side: Left Location: Subclavian A/P Assessment and Plan Neuro/Psych: Acute toxic metabolic encephalopathy History of EtOH Depression/anxiety CT head 01/04 reveals no acute intracranial abnormalities Holding bupropion 150 mg by mouth daily Hold Ultram and Percocets with altered mental status currently Thiamine/folate/multivitamin daily with EtOH use MRI/A brain 01/05- normal exam Monitor for alcohol withdrawal-seizure precautions CV: Hypertension Right lower extremity DVT As needed hydralazine/labetalol/Nitropaste to maintain systolic blood pressure was 160 Home medication of Lopressor 25 mg BID- on hold Follow up on troponin 0.02.. Will trend 01/05 right lower extremity Dopplers ultrasound for DVT-partially occlusive thrombus right SFA, popliteal and peroneal veins Resp: Acute respiratory insufficiency Acute hypoxic respiratory failure requiring intubation Nasal cannula to maintain saturations greater than equal to 92% Mechanical ventilation 14/500/0.40/5 Ventilator bundle Chest x-ray 01/04 reveals no acute cardiopulmonary findings Required intubation 01/05 for labored breathing due to bronchospasm. GI: Small bowel obstruction versus ileus CT abd/pelvis 01/04 revealed right 3.6 x 2.4 cm and left 2.5 x 1.4 cm adrenal masses. Distal esophagus with thickening. Dilated stomach.: Colonic Diverticuli. Compressed colon. Possible bowel obstruction. Dr. Sosa/general surgery consulted-medical management at this time. Tentative plan for possible small bowel follow-through Negative ultrasound gallbladder 01/02 : Follow-up ADH level Parada has been placed for accurate I's and O's in a critically ill patient UA with proteinuria see below Endo: Adrenal mass -bilateral possible hemorrhage B/L adrenal hemorrhage See CT abdomen/pelvis results above. Cosyntropin test ordered. Results pending ADH ordered -results pending Noted hypertensive. Potassium normal. Continue hydrocortisone 100 mg 3 times a day Sliding-scale insulin with Accu-Cheks to maintain euglycemia/low regimen Renal: Proteinuria Patient states he needed kidney biopsy in past but refused Follow-up a.m. BMP Accurate I's and O's Monitor urine output Heme: Leukocytosis Thrombocytosis Chronic Xarelto use Follow CBC name. Monitor trends. 25-> 32-> 28 today, downtrending .01/06 Flagyl added to medication regimen Unknown if infectious etiology. ID consult toDr. Salinas UA negative. Procoagulant studies [id number] results ID: Receive 1 dose Rocephin in ED. Previously on Levaquin daily Vancomycin/cefepime day 4, Flagyl day 3 Monitor for infection Pertinent cultures 01/04 - blood cultures 2 - pending 01/04 - UA - negative 01/02 - blood cultures 2 - pending FEN: Hyponatremia - hypoosmolar 01/04 Check cortisol/cosyntropin test otherwise likely SIADH TSH was 1.12. Uric acid 3.0. Lipid panel ordered. 2% NaCl infusion-discontinued Continue 0.9 sodium chloride at 84 cc/hour Continue every 6 hours sodium level monitoring MSK: Right lower extremity wound Wound care evaluation Access - Utilize peripheral IV. Left subclavian 01/04. Radial a line removed 2 in 2 days , secondary to clotting Prophylaxis - GI - Protonix - DVT - SCD/holding Xarelto in light of possible adrenal hemorrhage Overall impression: This man remains septic and ventilator dependent. He will require at least 3 additional ICU days. Unable to wean ventilator. Critical Care 37 mins Kingsley Alba MD January 08, 2017 07:45
[2017-01-08] MEDS: CHLORHEXIDINE 0.12% (ORAL KIT) 15 ML CUP MT SCH ×2 (07:54→20:43)
[2017-01-08] MEDS: ARTIFICIAL TEARS OPTH SOLN 15 ML BTL EACH EYE SCH ×3 (07:54→17:38)
[2017-01-08] MEDS: FOLIC ACID 1 MG TAB PO SCH (08:00)
[2017-01-08] MEDS: DOCUSATE SODIUM 100 MG CAP PO SCH ×2 (08:00→20:41)
[2017-01-08] MEDS: MULTIVITAMIN TAB PO SCH (08:00)
[2017-01-08] MEDS: SODIUM CHLORIDE 0.9% FLUSH 10 ML FLUSH IV FLUSH SCH ×2 (08:01→20:41)
[2017-01-08] MEDS: PANTOPRAZOLE SODIUM 40 MG VIAL IV SCH (08:01)
[2017-01-08] MEDS: THIAMINE INJ 100 MG in SODIUM CHLORIDE 0.9% INJ 100 ML IV SCH (08:01)
--- NOTE | 2017-01-08 11:17 | HHI.PR ---
Subjective Subjective Notes Intubated/Sedated Objective Vitals/I&O Vital Signs Date Time Temp Pulse Resp B/P Pulse Ox O2 Delivery O2 Flow Rate FiO2 01/08/17 10:00 104 01/08/17 08:12 97 40 01/08/17 08:00 97.7 16 137/79 01/08/17 07:00 Mechanical Ventilator Labs Laboratory Tests Test 01/08/17 04:20 White Blood Count 25.2 Red Blood Count 3.84 Hemoglobin 11.9 Hematocrit 35.0 Mean Corpuscular Volume 91.0 Mean Corpuscular Hemoglobin 30.9 Mean Corpuscular Hemoglobin 33.9 Concent Red Cell Distribution Width 16.8 Platelet Count 410 Mean Platelet Volume 8.3 Neutrophils (%) (Auto) 93.3 Lymphocytes (%) (Auto) 2.2 Monocytes (%) (Auto) 4.4 Eosinophils (%) (Auto) 0.1 Basophils (%) (Auto) 0.0 Neutrophils # (Auto) 23.5 Lymphocytes # (Auto) 0.5 Monocytes # (Auto) 1.1 Eosinophils # (Auto) 0.0 Basophils # (Auto) 0.0 CBC Comment DIFF FINAL Differential Comment Sodium Level 135 Potassium Level 3.9 Chloride Level 103 Carbon Dioxide Level 22.4 Anion Gap 10 Blood Urea Nitrogen 22 Creatinine 1.05 Estimat Glomerular Filtration 69 Rate Random Glucose 264 Calcium Level 7.7 Phosphorus Level 2.6 Magnesium Level 2.6 Date/Time Procedure Status Source Growth 01/06/17 20:44 Gram Stain - Final Resulted Sputum Endotracheal 01/06/17 20:44 Sputum Culture - Preliminary Resulted Sputum Endotracheal No growth. 01/04/17 15:05 Influenza Types A,B Antigen (SAMANTHA) - Final Complete Nasal Aspirate NEGATIVE FOR FLU A AND B ANTIGEN.... 01/04/17 09:35 Aerobic Blood Culture - Preliminary Resulted Blood Peripheral NO GROWTH IN 4 DAYS 01/04/17 09:35 Anaerobic Blood Culture - Preliminary Resulted Blood Peripheral NO GROWTH IN 4 DAYS 01/04/17 09:24 Legionella Antigen - Final Complete Urine Catheterized Urine PRESUMPTIVE NEGATIVE FOR LEGIONELLA P... 01/04/17 09:24 Streptococcus pneumoniae Antigen (M - Final Complete Urine Catheterized Urine PRESUMPTIVE NEGATIVE FOR STREPTOCOCCU... Cardiovascular: Regular Lungs: Clear Abdomen: Other (distended) Extremities: Other (generalized edema ) A/P Assessment and Plan 76 year old male, MOSF; likely ileus secondary to medica conditions -Tachycardic all night; now on Amiodarone -Consider upper GI SBFT once more stable -will continue to follow. -continue NG tube to LIWS Attending Statement The exam, history, and the medical decision-making described in the above note were completed with the assistance of the mid-level provider. I reviewed and agree with the findings presented. I attest that I had a [id number] encounter with the patient on the same day, and personally performed and documented my assessment and findings in the medical record. Abdominal exam stable, non-tender continue to follow, no surgery planned unless clinically worsens Nancy Benson January 08, 2017 11:17 Bharat Saleh MD February 05, 2017 11:34
[2017-01-08] MEDS: PHENYLEPHRINE INJ 80 MG in DEXTROSE 5% IN WATE 500 ML INJ 492 ML IV SCH ×2 (11:29)
[2017-01-08] MEDS ORDERED: PILL SPLITTER OTHER PRN (11:30)
[2017-01-08] MEDS: METOPROLOL TARTRATE 25 MG TAB PO SCH ×2 (11:33→20:42)
--- NOTE | 2017-01-08 11:55 | EKG ---
Date Performed: 01/08/2017 Time Performed: 00:26:10 PTAGE: 76 years EKG: Atrial fibrillation with rapid ventricular response Left arm, right arm lead reversal Later al T wave changes are nonspecific Abnormal ECG PREVIOUS TRACING : 01/07/2017 00.59 Compared to previous tracing, arm lead reversal is now pres ent. DOCTOR: Jax Paul Interpretating Date/Time 01/08/2017 11:53:12
[2017-01-08] MEDS ORDERED: SODIUM CHLOR 0.9% 1000 ML INJ 1,000 ML IV ONE (12:00)
[2017-01-08] MEDS: fentaNYL DRIP 250 ML IV SCH (17:38)
[2017-01-08] MEDS ORDERED: PHARMACY ORDERED LAB ONE (17:45)
--- NOTE | 2017-01-08 22:07 | HHI.IDPN ---
Subjective Subjective Remarks delayed entry seen around 4 pm today intubated on mech vent less pressors afebrile n BMs no flatus Antibiotics flagyl vanco cefepime Allergies: Coded Allergies: No Known Allergies (Unverified , 01/02/17) Objective . Vital Signs Date Time Temp Pulse Resp B/P Pulse Ox O2 Delivery O2 Flow Rate FiO2 01/08/17 20:21 100 40 01/08/17 20:00 40 01/08/17 19:00 40 01/08/17 18:00 73 01/08/17 16:38 97 40 01/08/17 16:00 98.6 67 12 127/79 98 01/08/17 16:00 69 01/08/17 16:00 50 01/08/17 14:00 68 01/08/17 12:00 50 01/08/17 12:00 99.1 74 12 117/74 96 01/08/17 12:00 69 01/08/17 11:23 96 40 01/08/17 10:00 104 01/08/17 08:12 97 40 01/08/17 08:00 97.7 112 16 137/79 100 01/08/17 08:00 50 01/08/17 08:00 112 01/08/17 07:00 98 Mechanical Ventilator 40 01/08/17 06:24 100 40 01/08/17 06:00 112 01/08/17 04:00 50 01/08/17 04:00 98.8 129 16 111/85 93 01/08/17 04:00 112 01/08/17 03:20 96 40 01/08/17 02:00 112 01/08/17 00:07 98 40 01/08/17 00:00 50 01/08/17 00:00 144 01/08/17 00:00 97.9 144 16 124/72 97 01/07/17 22:00 118 01/07/17 01/07/17 01/08/17 15:00 23:00 07:00 Intake Total 1483 ml 1470 ml 2086 ml Output Total 800 ml 200 ml 200 ml Balance 683 ml 1270 ml 1886 ml IV Total 1483 ml 1470 ml 2086 ml Output Urine Total 750 ml 150 ml 150 ml Gastric Drainage Total 50 ml 50 ml 50 ml # Bowel Movements 0 0 0 . Laboratory Tests Test 01/07/17 01/08/17 03:22 04:20 White Blood Count 28.9 TH/MM3 25.2 TH/MM3 Red Blood Count 3.82 MIL/MM3 3.84 MIL/MM3 Hemoglobin 11.8 GM/DL 11.9 GM/DL Hematocrit 34.5 % 35.0 % Mean Corpuscular Volume 90.3 FL 91.0 FL Mean Corpuscular Hemoglobin 31.0 PG 30.9 PG Mean Corpuscular Hemoglobin 34.3 % 33.9 % Concent Red Cell Distribution Width 16.4 % 16.8 % Platelet Count 429 TH/MM3 410 TH/MM3 Mean Platelet Volume 8.3 FL 8.3 FL Neutrophils (%) (Auto) 94.6 % 93.3 % Lymphocytes (%) (Auto) 1.3 % 2.2 % Monocytes (%) (Auto) 3.8 % 4.4 % Eosinophils (%) (Auto) 0.1 % 0.1 % Basophils (%) (Auto) 0.2 % 0.0 % Neutrophils # (Auto) 27.3 TH/MM3 23.5 TH/MM3 Lymphocytes # (Auto) 0.4 TH/MM3 0.5 TH/MM3 Monocytes # (Auto) 1.1 TH/MM3 1.1 TH/MM3 Eosinophils # (Auto) 0.0 TH/MM3 0.0 TH/MM3 Basophils # (Auto) 0.1 TH/MM3 0.0 TH/MM3 CBC Comment DIFF FINAL DIFF FINAL Differential Comment Laboratory Tests Test 01/06/17 01/07/17 01/08/17 23:23 03:22 04:20 Sodium Level 132 MEQ/L 134 MEQ/L 135 MEQ/L Phosphorus Level 3.1 MG/DL 2.5 MG/DL 2.6 MG/DL Potassium Level 3.7 MEQ/L 3.9 MEQ/L Chloride Level 100 MEQ/L 103 MEQ/L Carbon Dioxide Level 24.6 MEQ/L 22.4 MEQ/L Anion Gap 9 MEQ/L 10 MEQ/L Blood Urea Nitrogen 19 MG/DL 22 MG/DL Creatinine 0.90 MG/DL 1.05 MG/DL Estimat Glomerular Filtration 82 ML/MIN 69 ML/MIN Rate Random Glucose 176 MG/DL 264 MG/DL Calcium Level 7.8 MG/DL 7.7 MG/DL Magnesium Level 2.5 MG/DL 2.6 MG/DL Total Bilirubin 0.3 MG/DL Aspartate Amino Transf 17 U/L (AST/SGOT) Alanine Aminotransferase 24 U/L (ALT/SGPT) Alkaline Phosphatase 123 U/L Total Protein 5.6 GM/DL Albumin 2.2 GM/DL Microbiology Date/Time Procedure Status Source Growth 01/06/17 20:44 Gram Stain - Final Complete Sputum Endotracheal 01/06/17 20:44 Sputum Culture - Final Complete Sputum Endotracheal MODERATE GROWTH NORMAL RESPIRATORY CONCEPCIÓN Imaging Last Impressions Chest X-Ray 01/08/17 0600 Signed Impressions: Service Date/Time: Sunday, January 08, 2017 04:50 - CONCLUSION: Endotracheal tube is above and should be retracted 3 cm. Improving left basilar atelectasis Aneudy Dennis MD Head Magnetic Resonance Angiography 01/05/17 0000 Signed Impressions: Service Date/Time: Thursday, January 05, 2017 14:37 - CONCLUSION: Normal examination. Esperanza Odell MD Abdomen MRI 01/05/17 0000 Signed Impressions: Service Date/Time: Thursday, January 05, 2017 14:37 - CONCLUSION: The bilateral adrenal masses have developed since the CT abdomen from 01/02/2017 and the most likely etiologies includes bilateral adrenal hemorrhage or possibly reactive hyperplasia. The exact etiology is not certain. Esperanza Odell MD Head CT 01/04/17 0848 Signed Impressions: Service Date/Time: Wednesday, January 04, 2017 08:58 - CONCLUSION: Unremarkable examination for each. Tyler Nagy MD Neck CT 01/04/17 0000 Signed Impressions: Service Date/Time: Wednesday, January 04, 2017 20:49 - CONCLUSION: Questionable thickening of the vocal cords. These can be directly inspected. Otherwise the study appears grossly normal for a noncontrast CT of the neck. Santos Whitley MD Lower Extremity Ultrasound 01/04/17 0000 Signed Impressions: Service Date/Time: Wednesday, January 04, 2017 18:55 - CONCLUSION: Partially occlusive thrombus in the right superficial femoral, popliteal and peroneal veins. No thrombus is seen on the left side. Santos Whitley MD Chest CT 01/04/17 0000 Signed Impressions: Service Date/Time: Wednesday, January 04, 2017 20:50 - CONCLUSION: 1. Mild bilateral pleural effusions with suspected accompanying areas of atelectasis or consolidation at the lung bases. 2. Coronary artery calcifications. Santos Whitley MD Brain MRI 01/04/17 0000 Signed Impressions: Service Date/Time: Wednesday, January 04, 2017 21:19 - CONCLUSION: Atrophy and mild chronic white matter changes. No acute infarct or other acute intracranial abnormality. Santos Arce MD Abdomen/Pelvis CT 01/04/17 0000 Signed Impressions: Service Date/Time: Wednesday, January 04, 2017 10:32 - CONCLUSION: 1. New abnormal bowel gas pattern of concern for distal small bowel obstruction. 2. New bilateral adrenal masses which were not present 2 days ago. The differential includes adrenal hemorrhage and/or hyperplasia. 3. New small pleural effusions right greater than left. 4. Mild diverticulosis. Tyler Nagy MD Physical Exam CONSTITUTIONAL/GENERAL: This is an adequately nourished patient, sedated [facility] TUBES/LINES/DRAINS: SKIN: No jaundice, rashes, or lesions.Vitiligo involving hands, feet primarily Skin temperature appropriate BUE, feet are cool to touch R medial ankle wound is clean based w/o e/o infx . Not diaphoretic. HEAD: Atraumatic. Normocephalic. EYES: Pupils equal and round and reactive. Extraocular motions intact. No scleral icterus. No injection or drainage. Fundi not examined. ENT: Hearing not tested. Nose without bleeding or purulent drainage. Oral mucosae moist without visible erythema, exudates, masses, or lesions. NG tube to suction with clear yellowish d/c NECK: Trachea midline. Supple, nontender. No palpable thyroid enlargement or nodularity. CARDIOVASCULAR: Regular rate and rhythm without murmurs, gallops, or rubs. No JVD. Peripheral pulses symmetric. RESPIRATORY/CHEST: Symmetric, unlabored respirations. Clear to auscultation. Breath sounds equal bilaterally. No wheezes, rales, or rhonchi. GASTROINTESTINAL: Abdomen tenser toafay, no reaction to palpation, less distended. no tympany to palpation No bowel sounds. RN reports rare hypoactive sounds, no flatus no BM No hepato-splenomegaly, or palpable masses. No guarding. Bowel sounds present. GENITOURINARY: Without palpable bladder distension. Parada catheter in place with clear yellow urine MUSCULOSKELETAL: Extremities without clubbing, cyanosis, or edema. Cold feet No calf tenderness. No mottling or clubbing. LYMPHATICS: No palpable cervical or supraclavicular adenopathy. NEUROLOGICAL: sedated; unresponsive PSYCHIATRIC: not possible to assess Assessment & Plan Remarks Assessment and Plan Sepsis - source is likley intra- abdominal: small bowel obstruction vs ileus - transition zone present - distal esophagus thickening ? significance Acute VDRF - leukocytosis, leukemoid reaction - cont to improve - cont cefepime - cont vancomycin - cont flagyl - monitor clinically - will repeat CT a/p tomorrow if not improving or worse clnically Ilana Garrison RN, MD January 08, 2017 22:07
[2017-01-09] VITALS (20 sets, daily range): BP systolic 127–226; BP diastolic 76–104; PULSE 75–110; RESP 12–26; TEMP 98.5–99.4; O2SAT 95–100
[2017-01-09] MEDS: fentaNYL DRIP 250 ML IV SCH ×2 (02:41→21:28)
[2017-01-09] MEDS: PROPOFOL 1000 MG/100 ML IV SCH (02:43)
[2017-01-09] MEDS: AMIODARONE INJ 450 MG in DEXTROSE 5% IN WATE(EXCEL) INJ 250 ML IV SCH ×2 (02:51)
[2017-01-09 03:59] LABS: BASOPHIL % 0.3 % (0.0-2.0); HEMATOCRIT 30.3 % (39.0-51.0); LYMPH % 3.3 % (9.0-44.0); LYMPHOCYTE # 0.6 TH/MM3 (1.0-4.8); MEAN CELL VOLUME 91.3 FL (80.0-100.0); MEAN CORPUSCULAR HEMOGLOBIN 31.5 PG (27.0-34.0); MEAN CORPUSCULAR HGB CONC 34.5 % (32.0-36.0); MONO % 5.8 % (0.0-8.0); NEUT % 90.6 % (16.0-70.0); PLATELET COUNT 197 TH/MM3 (150-450); RED BLOOD COUNT 3.32 MIL/MM3 (4.50-5.90); RED CELL DISTRIBUTION WIDTH 16.8 % (11.6-17.2); WHITE BLOOD COUNT 17.7 TH/MM3 (4.0-11.0)
[2017-01-09] MEDS: CHLORHEXIDINE GLUCONATE 2 % 1 PACK (2 CLOTHS) TOP SCH (03:59)
[2017-01-09] MEDS: CEFEPIME INJ 2,000 MG in SODIUM CHLORIDE 0.9% INJ 100 ML IV SCH ×2 (04:05→17:13)
[2017-01-09 04:07] LABS: HEMO FLAGS AUTO DIFF
[2017-01-09 04:15] LABS: ALT (GPT) 25 U/L (12-78); ANION GAP 8 MEQ/L (5-15); AST (GOT) 15 U/L (15-37); BICARBONATE 21.7 MEQ/L (21.0-32.0); BLOOD UREA NITROGEN 32 MG/DL (7-18); CHLORIDE 106 MEQ/L (98-107); GLOMERULAR FILTRATION RATE 38 ML/MIN (>89); POTASSIUM 4.1 MEQ/L (3.5-5.1); SODIUM (NA) 136 MEQ/L (136-145)
[2017-01-09 04:17] LABS: ALKALINE PHOSPHATASE 127 U/L (45-117); TOTAL BILIRUBIN ADULT 0.4 MG/DL (0.2-1.0)
[2017-01-09] MEDS: metroNIDAZOLE 500 MG INJ 100 ML IV SCH ×3 (04:27→21:04)
[2017-01-09] MEDS: HYDROCORTISONE SOD SUCCINATE 100 MG VIAL IV PUSH SCH ×3 (04:27→21:04)
[2017-01-09 04:50] LABS: BANDS 10 % (0-6); METAMYELOCYTES 2 % (0-1); NEUTROPHIL # MANUAL DIFF 16.3 TH/MM3 (1.8-7.7); POLYS (SEG NEUTROPHILS) 80 % (16-70); WBC DIFF SAMPLE 100
[2017-01-09 04:51] LABS: ACANTHOCYTES OCC (NORMAL); PLATELET ESTIMATE SMEAR NORMAL (NORMAL); PLATELET MORPHOLOGY NORMAL (NORMAL); SCAN/DIFF FINAL DIFF MANUAL; TOXIC GRANULATION 1+ (NORMAL)
[2017-01-09] MEDS: INSULIN NovoLIN REGULAR SUPPLEMENTAL SCALE SQ SCH ×4 (06:36→21:00)
[2017-01-09] MEDS: hydrALAZINE HCL 20 MG/ML VIAL IV PUSH PRN ×2 (07:39→23:09)
[2017-01-09] MEDS: CHLORHEXIDINE 0.12% (ORAL KIT) 15 ML CUP MT SCH ×2 (07:55→20:40)
[2017-01-09] MEDS: MULTIVITAMIN TAB PO SCH (07:59)
[2017-01-09] MEDS: METOPROLOL TARTRATE 25 MG TAB PO SCH ×2 (07:59→20:01)
[2017-01-09] MEDS: PANTOPRAZOLE SODIUM 40 MG VIAL IV SCH (07:59)
[2017-01-09] MEDS: DOCUSATE SODIUM 100 MG CAP PO SCH ×2 (07:59→20:01)
[2017-01-09] MEDS: FOLIC ACID 1 MG TAB PO SCH (07:59)
[2017-01-09] MEDS: SODIUM CHLORIDE 0.9% FLUSH 10 ML FLUSH IV FLUSH SCH ×2 (08:01→20:40)
[2017-01-09] MEDS: LABETALOL HCL 100 MG/20 ML VIAL IV PUSH PRN ×3 (08:05→23:47)
--- NOTE | 2017-01-09 08:15 | HHI.CCPN ---
Subjective Remarks/Hospital Course 76-year-old Male. Date of Admission 01/04/2017. 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 This Is 5 x 5 Cm. Covered in Blue Bandage. Patient Presents to [facility] after Being Discharged 01/02 with Altered Mental Status. 01/[address] abdomen pelvis which showed induration of the right kidney possibly past of possible pyelonephritis. UA was negative for infection. 2 cm cyst at the left kidney pole. Sigmoid diverticulosis. Degenerative disc disease lumbar spine. Patient did have a low-sodium 126 at that time.at that time, he was complaining of severe bilateral flank pain. Was associated after eating greasy food at [facility]. Associated with nausea and vomiting Saturday and Saturday prior to admission. He felt better the next morning was sent home on Levaquin. Day, patient was found confused and altered by his roommate this morning. Was transferred to [facility]. CT abdomen and pelvis revealed a right-sided 3.6 x 2.5 cm left 2.5 adrenal mass. Possible hemorrhage. Dilated esophagus with thickening, and dilated stomach, colon diverticula. Possible small bowel obstruction. NG tube was placed with 800cc brown gastric contents removed. /general surgery was consulted and has seen the patient for possible small bowel obstruction. Patient is room air, hypertensive requiring 40 mg labetalol. 01/05: Patient more agitated with fever 102, tachycardia worse, and diffuse wheezing, labored respiratory effort. Na 116. Received 100 ml 3% saline, lasix 40 mg, intubation and ventilation. Head CT and MRI normal aside from atrophy. 01/06: Tmax 98.7. Continued elevation in WBC count. ID consult to Dr. Salinas following, Flagyl was added to medication regime yesterday. The patient was placed on a 2% sodium infusion for hyponatremia. Coagulant studies still pending, no growth from blood cultures will obtain sputum culture today. Patient continues on vasopressor support requiring Phenylephrine. 01/07 Tmax 98.8. The patient went into A. fib RVR last night heart rate 150's, phenylephrine was increased, currently in A. fib rate controlled 90's. Phenylephrine continues to be infused at 60 mcgs. Sodium level 134, 2% sodium infusion discontinued. 01/08: Tachycardia persists. Renal function acceptable, lytes require repletion , add K. 01/09: Tolerating CPAP trails with PS 10. BP 220/145. Convert to precedex, attempt to extubated. Objective Vital Signs Date Time Temp Pulse Resp B/P Pulse Ox O2 Delivery O2 Flow Rate FiO2 01/09/17 06:17 100 35 01/09/17 06:00 85 01/09/17 04:00 99.4 12 127/76 01/08/17 07:00 Mechanical Ventilator Intake and Output 01/08/17 01/08/17 01/09/17 08:00 16:00 00:00 Intake Total 2086 ml 2428 ml 2242 ml Output Total 200 ml 225 ml 250 ml Balance 1886 ml 2203 ml 1992 ml Result Diagram: 01/09/17 0342 01/09/17 0342 Other Results Microbiology Date/Time Procedure Status Source Growth 01/06/17 20:44 Gram Stain - Final Complete Sputum Endotracheal 01/06/17 20:44 Sputum Culture - Final Complete Sputum Endotracheal MODERATE GROWTH NORMAL RESPIRATORY CONCEPCIÓN Imaging Last Impressions Chest X-Ray 01/07/17 0000 Signed Impressions: Service Date/Time: Saturday, January 07, 2017 01:13 - CONCLUSION: 1. Cardiomegaly. Left lower lobe atelectasis versus pneumonia. 2. Cardiomegaly and findings of vascular congestion without overt failure. There has been no significant change when compared to the prior exam. Aneudy Dennis MD Head Magnetic Resonance Angiography 01/05/17 0000 Signed Impressions: Service Date/Time: Thursday, January 05, 2017 14:37 - CONCLUSION: Normal examination. Esperanza Odell MD Abdomen MRI 01/05/17 0000 Signed Impressions: Service Date/Time: Thursday, January 05, 2017 14:37 - CONCLUSION: The bilateral adrenal masses have developed since the CT abdomen from 01/02/2017 and the most likely etiologies includes bilateral adrenal hemorrhage or possibly reactive hyperplasia. The exact etiology is not certain. Esperanza Odell MD Head CT 01/04/17 0848 Signed Impressions: Service Date/Time: Wednesday, January 04, 2017 08:58 - CONCLUSION: Unremarkable examination for each. Tyler Nagy MD Neck CT 01/04/17 0000 Signed Impressions: Service Date/Time: Wednesday, January 04, 2017 20:49 - CONCLUSION: Questionable thickening of the vocal cords. These can be directly inspected. Otherwise the study appears grossly normal for a noncontrast CT of the neck. Santos Whitley MD Lower Extremity Ultrasound 01/04/17 Signed Impressions: Service Date/Time: Wednesday, January 04, 2017 18:55 - CONCLUSION: Partially occlusive thrombus in the right superficial femoral, popliteal and peroneal veins. No thrombus is seen on the left side. Santos Whitley MD Chest CT 01/04/17 Signed Impressions: Service Date/Time: Wednesday, January 04, 2017 20:50 - CONCLUSION: 1. Mild bilateral pleural effusions with suspected accompanying areas of atelectasis or consolidation at the lung bases. 2. Coronary artery calcifications. Santos Whitley MD Brain MRI 01/04/17 Signed Impressions: Service Date/Time: Wednesday, January 04, 2017 21:19 - CONCLUSION: Atrophy and mild chronic white matter changes. No acute infarct or other acute intracranial abnormality. Santos Arce MD Abdomen/Pelvis CT 01/04/17 Signed Impressions: Service Date/Time: Wednesday, January 04, 2017 10:32 - CONCLUSION: 1. New abnormal bowel gas pattern of concern for distal small bowel obstruction. 2. New bilateral adrenal masses which were not present 2 days ago. The differential includes adrenal hemorrhage and/or hyperplasia. 3. New small pleural effusions right greater than left. 4. Mild diverticulosis. Tyler Nagy MD Last Impressions Head CT 01/04/17 0848 Signed Impressions: Service Date/Time: Wednesday, January 04, 2017 08:58 - CONCLUSION: Unremarkable examination for each. Tyler Nagy MD Chest X-Ray 01/04/17 Signed Impressions: Service Date/Time: Wednesday, January 04, 2017 08:59 - CONCLUSION: No acute disease. There is no evidence of pneumonia. Tyler Nagy MD Abdomen/Pelvis CT 01/04/17 0000 Signed Impressions: Service Date/Time: Wednesday, January 04, 2017 10:32 - CONCLUSION: 1. New abnormal bowel gas pattern of concern for distal small bowel obstruction. 2. New bilateral adrenal masses which were not present 2 days ago. The differential includes adrenal hemorrhage and/or hyperplasia. 3. New small pleural effusions right greater than left. 4. Mild diverticulosis. Tyler Nagy MD Objective Remarks Fentanyl 100 mcgs GENERAL: 76-year-old critically ill appearing male, intubated and sedated SKIN: Warm, flushed, damp. Ecchymotic region to right lower extremity/medial ankle. Chronic venous stasis wound HEAD: Atraumatic. Normocephalic. EYES: Pupils equal and round about 2 mm bilaterally, reactive. ENT: No nasal bleeding or discharge. Mucous membranes pink and moist. NECK: Trachea midline. Orally intubated. CARDIOVASCULAR: Regular rate and irregularly irregular rhythm. S1, S2. No S4. rate 120s's, RESPIRATORY: Mechanical ventilation Clear to auscultation bilaterally. No wheezes. GASTROINTESTINAL: Abdomen remains distended. No guarding. Nontender. Active bowel sounds are appreciated NG tube to LIS MUSCULOSKELETAL: Extremities trace lower extremity edema. Right medial ankle 5 x 5 cm covered in BLUE disc. Clammy. NEUROLOGICAL: Moving extremities 4, opens eyes. Extremely anxious. Date of Insertion: Jan 04, 2017 Date of Insertion: Jan 04, 2017 Side: Left Location: Subclavian A/P Assessment and Plan Neuro/Psych: Acute toxic metabolic encephalopathy History of EtOH Depression/anxiety CT head 01/04 reveals no acute intracranial abnormalities Holding bupropion 150 mg by mouth daily Hold Ultram and Percocets with altered mental status currently Thiamine/folate/multivitamin daily with EtOH use MRI/A brain 01/05- normal exam Monitor for alcohol withdrawal-seizure precautions CV: Hypertension Right lower extremity DVT As needed hydralazine/labetalol/Nitropaste to maintain systolic blood pressure was 160 Home medication of Lopressor 25 mg BID- on hold Follow up on troponin 0.02.. Will trend 01/05 right lower extremity Dopplers ultrasound for DVT-partially occlusive thrombus right SFA, popliteal and peroneal veins Resp: Acute respiratory insufficiency Acute hypoxic respiratory failure requiring intubation Nasal cannula to maintain saturations greater than equal to 92% Mechanical ventilation 14/500/0.40/5 Ventilator bundle Chest x-ray 01/04 reveals no acute cardiopulmonary findings Required intubation 01/05 for labored breathing due to bronchospasm. Bronchospasm corrected 01/09 GI: Small bowel obstruction versus ileus CT abd/pelvis 01/04 revealed right 3.6 x 2.4 cm and left 2.5 x 1.4 cm adrenal masses. Distal esophagus with thickening. Dilated stomach.: Colonic Diverticuli. Compressed colon. Possible bowel obstruction. Dr. Sosa/general surgery consulted-medical management at this time. Tentative plan for possible small bowel follow-through Negative ultrasound gallbladder 01/02 : Follow-up ADH level Parada has been placed for accurate I's and O's in a critically ill patient UA with proteinuria see below Endo: Adrenal mass -bilateral possible hemorrhage B/L adrenal hemorrhage See CT abdomen/pelvis results above. Cosyntropin test ordered. Results pending ADH ordered -results pending Noted hypertensive. Potassium normal. Continue hydrocortisone 100 mg 3 times a day Sliding-scale insulin with Accu-Cheks to maintain euglycemia/low regimen Renal: Proteinuria Patient states he needed kidney biopsy in past but refused Follow-up a.m. BMP Accurate I's and O's Monitor urine output Heme: Leukocytosis Thrombocytosis Chronic Xarelto use Follow CBC name. Monitor trends. 25-> 32-> 28 today, downtrending .01/06 Flagyl added to medication regimen Unknown if infectious etiology. ID consult toDr. Salinas UA negative. Procoagulant studies [id number] results ID: Receive 1 dose Rocephin in ED. Previously on Levaquin daily Vancomycin/cefepime day 5, Flagyl day 4 Monitor for infection Pertinent cultures 01/04 - blood cultures 2 - pending 01/04 - UA - negative 01/02 - blood cultures 2 - pending FEN: Hyponatremia - hypoosmolar 01/04 Check cortisol/cosyntropin test otherwise likely SIADH TSH was 1.12. Uric acid 3.0. Lipid panel ordered. 2% NaCl infusion-discontinued Continue 0.9 sodium chloride at 84 cc/hour Continue every 6 hours sodium level monitoring MSK: Right lower extremity wound Wound care evaluation Access - Utilize peripheral IV. Left subclavian 01/04. Radial a line removed 2 in 2 days , secondary to clotting Prophylaxis - GI - Protonix - DVT - SCD/holding Xarelto in light of possible adrenal hemorrhage Overall impression: This man remains septic and ventilator dependent. He will require at least 2 additional ICU days. Unable to wean ventilator. We will try to make sure his GI tract is not obstructed. Critical Care 34 mins Kingsley Alba MD January 09, 2017 08:15
[2017-01-09] MEDS ORDERED: METOPROLOL TARTRATE 25 MG TAB PO ONE (08:30)
[2017-01-09] MEDS: THIAMINE INJ 100 MG in SODIUM CHLORIDE 0.9% INJ 100 ML IV SCH (09:09)
[2017-01-09] MEDS: ARTIFICIAL TEARS OPTH SOLN 15 ML BTL EACH EYE SCH ×3 (09:09→18:11)
[2017-01-09] MEDS: DEXMEDETOMIDINE INJ 200 MCG in SODIUM CHLORIDE 0.9% INJ 50 ML IV SCH ×5 (11:02→21:28)
[2017-01-09] MEDS: SODIUM CHLOR 0.9% 1000 ML INJ 1,000 ML IV SCH (13:48)
--- NOTE | 2017-01-09 15:43 | HHI.PR ---
Subjective Subjective Notes Intubated/Sedated Objective Vitals/I&O Vital Signs Date Time Temp Pulse Resp B/P Pulse Ox O2 Delivery O2 Flow Rate FiO2 01/09/17 14:00 35 01/09/17 14:00 84 01/09/17 12:00 98.6 26 163/87 97 01/09/17 08:00 Mechanical Ventilator Labs Laboratory Tests Test 01/08/17 01/09/17 17:45 03:42 Vancomycin Level Trough 27.0 White Blood Count 17.7 Red Blood Count 3.32 Hemoglobin 10.5 Hematocrit 30.3 Mean Corpuscular Volume 91.3 Mean Corpuscular Hemoglobin 31.5 Mean Corpuscular Hemoglobin 34.5 Concent Red Cell Distribution Width 16.8 Platelet Count 197 Mean Platelet Volume 8.0 Neutrophils (%) (Auto) 90.6 Lymphocytes (%) (Auto) 3.3 Monocytes (%) (Auto) 5.8 Eosinophils (%) (Auto) 0.0 Basophils (%) (Auto) 0.3 Neutrophils # (Auto) 16.0 Lymphocytes # (Auto) 0.6 Monocytes # (Auto) 1.0 Eosinophils # (Auto) 0.0 Basophils # (Auto) 0.0 CBC Comment AUTO DIFF Differential Total Cells 100 Counted Neutrophils % (Manual) 80 Band Neutrophils % 10 Lymphocytes % 4 Monocytes % 4 Neutrophils # (Manual) 16.3 Metamyelocytes 2 Differential Comment FINAL DIFF MANUAL Toxic Granulation 1+ Platelet Estimate NORMAL Platelet Morphology Comment NORMAL Acanthocytes OCC Sodium Level 136 Potassium Level 4.1 Chloride Level 106 Carbon Dioxide Level 21.7 Anion Gap 8 Blood Urea Nitrogen 32 Creatinine 1.74 Estimat Glomerular Filtration 38 Rate Random Glucose 186 Calcium Level 7.7 Total Bilirubin 0.4 Aspartate Amino Transf 15 (AST/SGOT) Alanine Aminotransferase 25 (ALT/SGPT) Alkaline Phosphatase 127 Total Protein 5.1 Albumin 2.1 Random Vancomycin Level 33.6 Date/Time Procedure Status Source Growth 01/06/17 20:44 Gram Stain - Final Complete Sputum Endotracheal 01/06/17 20:44 Sputum Culture - Final Complete Sputum Endotracheal MODERATE GROWTH NORMAL RESPIRATORY CONCEPCIÓN Cardiovascular: Regular Lungs: Clear Abdomen: Other (distended ) Extremities: No edema A/P Assessment and Plan 76 year old male, MOSF; likely ileus secondary to medical conditions -on Amiodarone drip -CCM doing CPAP trials today -Consider upper GI SBFT once more stable -will continue to follow. -continue NG tube to LIWS Attending Statement The exam, history, and the medical decision-making described in the above note were completed with the assistance of the mid-level provider. I reviewed and agree with the findings presented. I attest that I had a [id number] encounter with the patient on the same day, and personally performed and documented my assessment and findings in the medical record. Abdominal exam stable, nontender, minimally distended Nancy Benson January 09, 2017 15:43 Bharat Saleh MD February 05, 2017 11:37
[2017-01-09 17:51] LABS: THROMBIN TIME FOR LA 14 sec (13-19)
[2017-01-10] VITALS (18 sets, daily range): BP systolic 96–192; BP diastolic 56–102; PULSE 80–100; RESP 15–20; TEMP 98.3–99.8; O2SAT 95–98
[2017-01-10] MEDS: DEXMEDETOMIDINE INJ 200 MCG in SODIUM CHLORIDE 0.9% INJ 50 ML IV SCH ×5 (00:17→07:49)
[2017-01-10] MEDS: LABETALOL HCL 100 MG/20 ML VIAL IV PUSH PRN ×3 (02:15→11:04)
[2017-01-10] MEDS: SODIUM CHLOR 0.9% 1000 ML INJ 1,000 ML IV SCH (02:15)
[2017-01-10] MEDS: CHLORHEXIDINE GLUCONATE 2 % 1 PACK (2 CLOTHS) TOP SCH (03:15)
[2017-01-10] MEDS: CEFEPIME INJ 2,000 MG in SODIUM CHLORIDE 0.9% INJ 100 ML IV SCH ×2 (03:37→15:47)
[2017-01-10 04:35] LABS: AUTOMATED NEUTROPHIL # 20.7 TH/MM3 (1.8-7.7); BASOPHIL % 0.1 % (0.0-2.0); HEMATOCRIT 31.4 % (39.0-51.0); LYMPH % 3.2 % (9.0-44.0); LYMPHOCYTE # 0.7 TH/MM3 (1.0-4.8); MEAN CELL VOLUME 91.1 FL (80.0-100.0); MEAN CORPUSCULAR HEMOGLOBIN 30.6 PG (27.0-34.0); MEAN CORPUSCULAR HGB CONC 33.6 % (32.0-36.0); MONO % 5.2 % (0.0-8.0); NEUT % 91.5 % (16.0-70.0); PLATELET COUNT 160 TH/MM3 (150-450); RED BLOOD COUNT 3.45 MIL/MM3 (4.50-5.90); RED CELL DISTRIBUTION WIDTH 16.6 % (11.6-17.2); WHITE BLOOD COUNT 22.7 TH/MM3 (4.0-11.0)
[2017-01-10 04:41] LABS: HEMO FLAGS AUTO DIFF
[2017-01-10 05:00] LABS: BICARBONATE 21.3 MEQ/L (21.0-32.0); POTASSIUM 3.9 MEQ/L (3.5-5.1)
[2017-01-10] MEDS: HYDROCORTISONE SOD SUCCINATE 100 MG VIAL IV PUSH SCH ×3 (06:30→21:08)
[2017-01-10] MEDS: metroNIDAZOLE 500 MG INJ 100 ML IV SCH ×3 (06:30→21:08)
[2017-01-10] MEDS: INSULIN NovoLIN REGULAR SUPPLEMENTAL SCALE SQ SCH ×4 (06:37→21:00)
[2017-01-10 07:06] LABS: KERATOCYTES OCC (NORMAL); OVALOCYTES 1+ (NORMAL); PLATELET ESTIMATE SMEAR NORMAL (NORMAL); PLATELET MORPHOLOGY NORMAL (NORMAL); SCAN/DIFF AUTO DIFF CONFIRMED
[2017-01-10] MEDS: PANTOPRAZOLE SODIUM 40 MG VIAL IV SCH (07:48)
[2017-01-10] MEDS: THIAMINE INJ 100 MG in SODIUM CHLORIDE 0.9% INJ 100 ML IV SCH (07:48)
[2017-01-10] MEDS: CHLORHEXIDINE 0.12% (ORAL KIT) 15 ML CUP MT SCH ×2 (07:49→20:51)
[2017-01-10] MEDS: METOPROLOL TARTRATE 25 MG TAB PO SCH ×2 (07:49→21:08)
[2017-01-10] MEDS: MULTIVITAMIN TAB PO SCH (07:49)
[2017-01-10] MEDS: DOCUSATE SODIUM 100 MG CAP PO SCH ×2 (07:49→21:07)
[2017-01-10] MEDS: FOLIC ACID 1 MG TAB PO SCH (07:49)
[2017-01-10] MEDS: ARTIFICIAL TEARS OPTH SOLN 15 ML BTL EACH EYE SCH ×3 (07:50→17:46)
[2017-01-10] MEDS: SODIUM CHLORIDE 0.9% FLUSH 10 ML FLUSH IV FLUSH SCH ×2 (07:51→21:08)
[2017-01-10] MEDS: hydrALAZINE HCL 20 MG/ML VIAL IV PUSH PRN ×2 (07:55→15:47)
[2017-01-10] MEDS: DEXMEDETOMIDINE INJ 1,000 MCG in SODIUM CHLOR 0.9% 250 ML INJ 240 ML IV SCH ×2 (08:55→16:38)
[2017-01-10] MEDS: fentaNYL DRIP 250 ML IV SCH (11:42)
--- NOTE | 2017-01-10 12:29 | HHI.CCPN ---
Subjective Remarks/Hospital Course 76-year-old Male. Date of Admission 01/04/2017. 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 This Is 5 x 5 Cm. Covered in Blue Bandage. Patient Presents to [facility] after Being Discharged 01/02 with Altered Mental Status. 01/[address] abdomen pelvis which showed induration of the right kidney possibly past of possible pyelonephritis. UA was negative for infection. 2 cm cyst at the left kidney pole. Sigmoid diverticulosis. Degenerative disc disease lumbar spine. Patient did have a low-sodium 126 at that time.at that time, he was complaining of severe bilateral flank pain. Was associated after eating greasy food at [facility]. Associated with nausea and vomiting Saturday and Saturday prior to admission. He felt better the next morning was sent home on Levaquin. Day, patient was found confused and altered by his roommate this morning. Was transferred to [facility]. CT abdomen and pelvis revealed a right-sided 3.6 x 2.5 cm left 2.5 adrenal mass. Possible hemorrhage. Dilated esophagus with thickening, and dilated stomach, colon diverticula. Possible small bowel obstruction. NG tube was placed with 800cc brown gastric contents removed. /general surgery was consulted and has seen the patient for possible small bowel obstruction. Patient is room air, hypertensive requiring 40 mg labetalol. 01/05: Patient more agitated with fever 102, tachycardia worse, and diffuse wheezing, labored respiratory effort. Na 116. Received 100 ml 3% saline, lasix 40 mg, intubation and ventilation. Head CT and MRI normal aside from atrophy. 01/06: Tmax 98.7. Continued elevation in WBC count. ID consult to Dr. Salinas following, Flagyl was added to medication regime yesterday. The patient was placed on a 2% sodium infusion for hyponatremia. Coagulant studies still pending, no growth from blood cultures will obtain sputum culture today. Patient continues on vasopressor support requiring Phenylephrine. 01/07 Tmax 98.8. The patient went into A. fib RVR last night heart rate 150's, phenylephrine was increased, currently in A. fib rate controlled 90's. Phenylephrine continues to be infused at 60 mcgs. Sodium level 134, 2% sodium infusion discontinued. 01/08: Tachycardia persists. Renal function acceptable, lytes require repletion , add K. 01/09: Tolerating CPAP trails with PS 10. BP 220/145. Convert to precedex, attempt to extubated. 01/10: On Precedex and fentanyl infusions to facilitate weaning trials. Remains fluid overloaded. Approximately 15 KG up. Will start Bumex today with IV albumin Objective Vital Signs Date Time Temp Pulse Resp B/P Pulse Ox O2 Delivery O2 Flow Rate FiO2 01/10/17 11:49 95 40 01/10/17 10:00 80 01/10/17 08:00 99.1 19 192/102 01/10/17 07:00 Mechanical Ventilator Intake and Output 01/09/17 01/09/17 01/10/17 08:00 16:00 00:00 Intake Total 1056 ml 1228 ml 1131 ml Output Total 275 ml 400 ml 350 ml Balance 781 ml 828 ml 781 ml Result Diagram: 01/10/17 0412 01/10/17 0412 Imaging Last Impressions Chest X-Ray 01/07/17 0000 Signed Impressions: Service Date/Time: Saturday, January 07, 2017 01:13 - CONCLUSION: 1. Cardiomegaly. Left lower lobe atelectasis versus pneumonia. 2. Cardiomegaly and findings of vascular congestion without overt failure. There has been no significant change when compared to the prior exam. Aneudy Dennis MD Head Magnetic Resonance Angiography 01/05/17 0000 Signed Impressions: Service Date/Time: Thursday, January 05, 2017 14:37 - CONCLUSION: Normal examination. Esperanza Odell MD Abdomen MRI 01/05/17 0000 Signed Impressions: Service Date/Time: Thursday, January 05, 2017 14:37 - CONCLUSION: The bilateral adrenal masses have developed since the CT abdomen from 01/02/2017 and the most likely etiologies includes bilateral adrenal hemorrhage or possibly reactive hyperplasia. The exact etiology is not certain. Esperanza Odell MD Head CT 01/04/17 0848 Signed Impressions: Service Date/Time: Wednesday, January 04, 2017 08:58 - CONCLUSION: Unremarkable examination for each. Tyler Nagy MD Neck CT 01/04/17 0000 Signed Impressions: Service Date/Time: Wednesday, January 04, 2017 20:49 - CONCLUSION: Questionable thickening of the vocal cords. These can be directly inspected. Otherwise the study appears grossly normal for a noncontrast CT of the neck. Santos Whitley MD Lower Extremity Ultrasound 01/04/17 0000 Signed Impressions: Service Date/Time: Wednesday, January 04, 2017 18:55 - CONCLUSION: Partially occlusive thrombus in the right superficial femoral, popliteal and peroneal veins. No thrombus is seen on the left side. Santos Whitley MD Chest CT 01/04/17 Signed Impressions: Service Date/Time: Wednesday, January 04, 2017 20:50 - CONCLUSION: 1. Mild bilateral pleural effusions with suspected accompanying areas of atelectasis or consolidation at the lung bases. 2. Coronary artery calcifications. Santos Whitley MD Brain MRI 01/04/17 Signed Impressions: Service Date/Time: Wednesday, January 04, 2017 21:19 - CONCLUSION: Atrophy and mild chronic white matter changes. No acute infarct or other acute intracranial abnormality. Santos Arce MD Abdomen/Pelvis CT 01/04/17 Signed Impressions: Service Date/Time: Wednesday, January 04, 2017 10:32 - CONCLUSION: 1. New abnormal bowel gas pattern of concern for distal small bowel obstruction. 2. New bilateral adrenal masses which were not present 2 days ago. The differential includes adrenal hemorrhage and/or hyperplasia. 3. New small pleural effusions right greater than left. 4. Mild diverticulosis. Tyler Nagy MD Last Impressions Head CT 01/04/17 0848 Signed Impressions: Service Date/Time: Wednesday, January 04, 2017 08:58 - CONCLUSION: Unremarkable examination for each. Tyler Nagy MD Chest X-Ray 01/04/17 0000 Signed Impressions: Service Date/Time: Wednesday, January 04, 2017 08:59 - CONCLUSION: No acute disease. There is no evidence of pneumonia. Tyler Nagy MD Abdomen/Pelvis CT 01/04/17 0000 Signed Impressions: Service Date/Time: Wednesday, January 04, 2017 10:32 - CONCLUSION: 1. New abnormal bowel gas pattern of concern for distal small bowel obstruction. 2. New bilateral adrenal masses which were not present 2 days ago. The differential includes adrenal hemorrhage and/or hyperplasia. 3. New small pleural effusions right greater than left. 4. Mild diverticulosis. Tyler Nagy MD Objective Remarks Precedex Fentanyl P/E GENERAL: 76-year-old critically ill appearing male, intubated and sedated SKIN: Warm, flushed, damp. Ecchymotic region to right lower extremity/medial ankle. Chronic venous stasis wound HEAD: Atraumatic. Normocephalic. EYES: Pupils equal and round about 2 mm bilaterally, reactive. ENT: No nasal bleeding or discharge. Mucous membranes pink and moist. NECK: Trachea midline. Orally intubated. CARDIOVASCULAR: S1, S2 normal. No S4. rate 100s, RESPIRATORY: Mechanical ventilation, now on PSV 8/5, attempts to take deep breaths. Clear to auscultation bilaterally. No wheezes. GASTROINTESTINAL: Abdomen remains distended. No guarding. Nontender. Active bowel sounds are appreciated NG tube to LIS MUSCULOSKELETAL: Bilateral lower extremity edema. Clammy. NEUROLOGICAL: Moving extremities 4, opens eyes, follows commands. Anxious Date of Insertion: Jan 04, 2017 Date of Insertion: Jan 04, 2017 Side: Left Location: Subclavian A/P Assessment and Plan Neuro/Psych: Acute toxic metabolic encephalopathy History of EtOH Depression/anxiety Currently on Precedex and fentanyl to facilitate ventilator weaning CT head 01/04 reveals no acute intracranial abnormalities Holding bupropion 150 mg by mouth daily, Hold Ultram and Percocet with altered mental status currently Thiamine/folate/multivitamin daily with EtOH use MRI/A brain 01/05- normal exam Monitor for alcohol withdrawal-seizure precautions CV: Fluid overload Right lower extremity DVT Hypertension Start Bumex 1mg IV q12, IV albumin 25 g every 12 hours both for 3 days Weight up by 15 kg As needed hydralazine/labetalol/Nitropaste to maintain systolic blood pressure was 160 Home medication of Lopressor 25 mg BID- on hold Follow up on troponin 0.02.. Will trend 01/05 right lower extremity Dopplers ultrasound for DVT-partially occlusive thrombus right SFA, popliteal and peroneal veins Resp: Acute hypoxic respiratory failure requiring intubation Mechanical ventilation 14/500/0.40/5. On CPAP, but appears fatigued, with agonal appearing breathing-placed back on full vent support Ventilator bundle. Chest x-ray 01/04 reveals no acute cardiopulmonary findings Required intubation 01/05 for labored breathing due to bronchospasm. Bronchospasm corrected 01/09 GI: Small bowel obstruction versus ileus CT abd/pelvis 01/04 revealed right 3.6 x 2.4 cm and left 2.5 x 1.4 cm adrenal masses. Distal esophagus with thickening. Dilated stomach.: Colonic Diverticuli. Compressed colon. Possible bowel obstruction. Dr. Saleh/general surgery consulted-medical management at this time. Tentative plan for possible small bowel follow-through MRI suggested bilateral adrenal hemorrhage Negative ultrasound gallbladder 01/02 Renal: Acute kidney injury Proteinuria Patient states he needed kidney biopsy in past but refused Follow-up a.m. BMP Accurate I's and O's Monitor urine output Follow-up ADH level Endo: Adrenal mass -bilateral possible hemorrhage B/L adrenal hemorrhage See CT abdomen/pelvis results above. Follow-up on adrenal insufficiency workup ADH ordered -results pending Noted hypertensive. Potassium normal. Continue hydrocortisone 50 mg 3 times a day Sliding-scale insulin with Accu-Cheks to maintain euglycemia/low regimen Heme: Leukocytosis Thrombocytosis Chronic Xarelto use Follow CBC name. Monitor trends. 25-> 32-> 28 today, downtrending .01/06 Flagyl added to medication regimen Unknown if infectious etiology. ID consult toDr. Salinas UA negative. Procalcitonin normal ID: Receive 1 dose Rocephin in ED. Previously on Levaquin daily Vancomycin/cefepime/Flagyl. DC Vanc due to worsening renal function Monitor for infection Pertinent cultures 01/04 - blood cultures 2 - negative 01/04 - UA - negative 01/02 - blood cultures 2 - negative FEN: Hyponatremia - hypoosmolar 01/04 Cortisol level equivocal/F/u on cosyntropin test TSH was 1.12. Uric acid 3.0. Lipid panel ordered. 2% NaCl infusion-discontinued Continue 0.9 sodium chloride at 84 cc/hour-DCd now due to fluid overload Continue every 6 hours sodium level monitoring MSK: Right lower extremity wound Wound care evaluation Access - Utilize peripheral IV. Left subclavian 01/04. Radial a line removed 2 in 2 days , secondary to clotting Prophylaxis - GI - Protonix - DVT - SCD/holding Xarelto in light of possible adrenal hemorrhage Overall impression: Remains septic and ventilator dependent. He will require at least 2-3 additional ICU days. Unable to wean ventilator. Critical Care 35 mins Celina Graham MD January 10, 2017 12:29 to make sure his GI tract is not obstructed. Critical Care 34 mins Celina Graham MD January 10, 2017 12:29 Celina Graham MD January 10, 2017 12:29
[2017-01-10] MEDS ORDERED: BUMETANIDE INJ 1 MG/4 ML VIAL IV PUSH ONE (13:15)
--- NOTE | 2017-01-10 13:57 | RADRPT ---
EXAM DATE/TIME: 01/10/2017 12:54 [place] COMPARISON: CHEST SINGLE AP, January 08, 2017, 4:50. INDICATIONS : Short of breath, respiratory disease MEDICAL HISTORY : None. SURGICAL HISTORY : None. ENCOUNTER: Subsequent ACUITY: 1 week PAIN SCORE: Non-responsive. LOCATION: Bilateral chest FINDINGS: The ET tube is well-positioned. There is a left subclavian line catheter tip overlies the superior ve na cava. No pneumothorax is seen. The heart is normal in size. The exam demonstrates diffuse infiltra te involving the right lower lobe. This is new when compared to previous study. There are atelectatic changes within the left base these are stable. The osseous structures are intact. CONCLUSION: 1. New area of infiltrate involving the right lower lobe. This is concerning for a pneumonia. 2. Support equipment in satisfactory position. Flash Clinton MD on January 10, 2017 at 13:53 Board Certified Radiologist. This report was verified electronically.
[2017-01-10] MEDS: ALBUMIN HUMAN 25% 25 GM/100 ML BAGP IV SCH (14:00)
[2017-01-10] MEDS: POTASSIUM BICARBONATE 25 MEQ EFFERVESCENT TAB PO SCH (14:01)
--- NOTE | 2017-01-10 14:41 | HHI.PR ---
Subjective Subjective Notes Intubated/Sedated Objective Vitals/I&O Vital Signs Date Time Temp Pulse Resp B/P Pulse Ox O2 Delivery O2 Flow Rate FiO2 01/10/17 14:00 84 01/10/17 12:00 98.3 19 96/56 95 01/10/17 12:00 45 01/10/17 07:00 Mechanical Ventilator Labs Laboratory Tests Test 01/10/17 04:12 White Blood Count 22.7 Red Blood Count 3.45 Hemoglobin 10.6 Hematocrit 31.4 Mean Corpuscular Volume 91.1 Mean Corpuscular Hemoglobin 30.6 Mean Corpuscular Hemoglobin 33.6 Concent Red Cell Distribution Width 16.6 Platelet Count 160 Mean Platelet Volume 8.6 Neutrophils (%) (Auto) 91.5 Lymphocytes (%) (Auto) 3.2 Monocytes (%) (Auto) 5.2 Eosinophils (%) (Auto) 0.0 Basophils (%) (Auto) 0.1 Neutrophils # (Auto) 20.7 Lymphocytes # (Auto) 0.7 Monocytes # (Auto) 1.2 Eosinophils # (Auto) 0.0 Basophils # (Auto) 0.0 CBC Comment AUTO DIFF Differential Comment AUTO DIFF CONFIRMED Platelet Estimate NORMAL Platelet Morphology Comment NORMAL Ovalocytes 1+ Keratocytes OCC Sodium Level 138 Potassium Level 3.9 Chloride Level 108 Carbon Dioxide Level 21.3 Anion Gap 9 Blood Urea Nitrogen 47 Creatinine 1.63 Estimat Glomerular Filtration 41 Rate Random Glucose 118 Calcium Level 7.8 Random Vancomycin Level 19.5 Date/Time Procedure Status Source Growth 01/06/17 20:44 Gram Stain - Final Complete Sputum Endotracheal 01/06/17 20:44 Sputum Culture - Final Complete Sputum Endotracheal MODERATE GROWTH NORMAL RESPIRATORY CONCEPCIÓN Cardiovascular: Regular Lungs: Clear Abdomen: Other (abdomen distended but reduced from yesterday's exam ) Extremities: Other (generalized edema ) A/P Assessment and Plan 76 year old male, MOSF; likely ileus secondary to medical conditions -Vent per CCM; attempting CPAP trials today -on Amiodarone drip -Consider upper GI SBFT once more stable and able to travel safely downstairs -will continue to follow. -continue NG tube to LIWS Attending Statement The exam, history, and the medical decision-making described in the above note were completed with the assistance of the mid-level provider. I reviewed and agree with the findings presented. I attest that I had a [id number] encounter with the patient on the same day, and personally performed and documented my assessment and findings in the medical record. Abdominal exam stable, no rebound tenderness or peritonitis Nancy Benson January 10, 2017 14:41 Bharat Saleh MD February 05, 2017 16:06
[2017-01-10] MEDS: BUMETANIDE INJ 1 MG/4 ML VIAL IV PUSH SCH (17:46)
[2017-01-10] MEDS ORDERED: VANCOMYCIN INJ 1,250 MG in SODIUM CHLOR 0.9% 250 ML INJ 250 ML IV ONE (18:00)
--- NOTE | 2017-01-10 19:14 | HHI.IDPN ---
Subjective Subjective Remarks afebrile on vent creatinine going up fluid overload Antibiotics flagyl vanco cefepime Allergies: Coded Allergies: No Known Allergies (Unverified , 01/02/17) Objective . Vital Signs Date Time Temp Pulse Resp B/P Pulse Ox O2 Delivery O2 Flow Rate FiO2 01/10/17 18:00 87 01/10/17 16:00 45 01/10/17 16:00 84 01/10/17 16:00 99.8 87 17 161/88 96 01/10/17 15:31 95 40 01/10/17 14:00 84 01/10/17 12:00 98.3 84 19 96/56 95 01/10/17 12:00 45 01/10/17 12:00 84 01/10/17 11:49 95 40 01/10/17 10:00 80 01/10/17 09:02 45 01/10/17 08:50 50 01/10/17 08:47 98 50 01/10/17 08:00 99.1 100 19 192/102 95 01/10/17 08:00 100 01/10/17 08:00 45 01/10/17 07:00 94 Mechanical Ventilator 45 01/10/17 06:00 92 01/10/17 04:00 99.5 82 15 126/72 95 01/10/17 04:00 82 01/10/17 04:00 45 01/10/17 03:32 95 45 01/10/17 00:40 95 45 01/10/17 00:00 45 01/10/17 00:00 85 01/10/17 00:00 99.0 85 20 176/90 95 01/09/17 22:00 75 01/09/17 20:00 98.5 94 20 144/80 99 01/09/17 20:00 45 01/09/17 20:00 94 01/09/17 19:44 96 45 01/09/17 01/09/17 01/10/17 15:00 23:00 07:00 Intake Total 1228 ml 1131 ml 1055 ml Output Total 400 ml 350 ml 450 ml Balance 828 ml 781 ml 605 ml IV Total 1228 ml 1101 ml 1055 ml Tube Irrigant 30 ml Output Urine Total 400 ml 300 ml 400 ml Gastric Drainage Total 0 ml 50 ml 50 ml # Bowel Movements 0 0 0 . Laboratory Tests Test 01/09/17 01/10/17 03:42 04:12 White Blood Count 17.7 TH/MM3 22.7 TH/MM3 Red Blood Count 3.32 MIL/MM3 3.45 MIL/MM3 Hemoglobin 10.5 GM/DL 10.6 GM/DL Hematocrit 30.3 % 31.4 % Mean Corpuscular Volume 91.3 FL 91.1 FL Mean Corpuscular Hemoglobin 31.5 PG 30.6 PG Mean Corpuscular Hemoglobin 34.5 % 33.6 % Concent Red Cell Distribution Width 16.8 % 16.6 % Platelet Count 197 TH/MM3 160 TH/MM3 Mean Platelet Volume 8.0 FL 8.6 FL Neutrophils (%) (Auto) 90.6 % 91.5 % Lymphocytes (%) (Auto) 3.3 % 3.2 % Monocytes (%) (Auto) 5.8 % 5.2 % Eosinophils (%) (Auto) 0.0 % 0.0 % Basophils (%) (Auto) 0.3 % 0.1 % Neutrophils # (Auto) 16.0 TH/MM3 20.7 TH/MM3 Lymphocytes # (Auto) 0.6 TH/MM3 0.7 TH/MM3 Monocytes # (Auto) 1.0 TH/MM3 1.2 TH/MM3 Eosinophils # (Auto) 0.0 TH/MM3 0.0 TH/MM3 Basophils # (Auto) 0.0 TH/MM3 0.0 TH/MM3 CBC Comment AUTO DIFF AUTO DIFF Differential Total Cells 100 Counted Neutrophils % (Manual) 80 % Band Neutrophils % 10 % Lymphocytes % 4 % Monocytes % 4 % Neutrophils # (Manual) 16.3 TH/MM3 Metamyelocytes 2 % Differential Comment FINAL DIFF AUTO DIFF MANUAL CONFIRMED Toxic Granulation 1+ Platelet Estimate NORMAL NORMAL Platelet Morphology Comment NORMAL NORMAL Acanthocytes OCC Ovalocytes 1+ Keratocytes OCC Laboratory Tests Test 01/09/17 01/10/17 03:42 04:12 Sodium Level 136 MEQ/L 138 MEQ/L Potassium Level 4.1 MEQ/L 3.9 MEQ/L Chloride Level 106 MEQ/L 108 MEQ/L Carbon Dioxide Level 21.7 MEQ/L 21.3 MEQ/L Anion Gap 8 MEQ/L 9 MEQ/L Blood Urea Nitrogen 32 MG/DL 47 MG/DL Creatinine 1.74 MG/DL 1.63 MG/DL Estimat Glomerular Filtration 38 ML/MIN 41 ML/MIN Rate Random Glucose 186 MG/DL 118 MG/DL Calcium Level 7.7 MG/DL 7.8 MG/DL Total Bilirubin 0.4 MG/DL Aspartate Amino Transf 15 U/L (AST/SGOT) Alanine Aminotransferase 25 U/L (ALT/SGPT) Alkaline Phosphatase 127 U/L Total Protein 5.1 GM/DL Albumin 2.1 GM/DL Imaging Last Impressions Chest X-Ray 01/10/17 Signed Impressions: Service Date/Time: January 12:54 - CONCLUSION: 1. New area of infiltrate involving the right lower lobe. This is concerning for a pneumonia. 2. Support equipment in satisfactory position. Flash Clinton MD Head Magnetic Resonance Angiography 01/05/17 0000 Signed Impressions: Service Date/Time: Thursday, January 05, 2017 14:37 - CONCLUSION: Normal examination. Esperanza Odell MD Abdomen MRI 01/05/17 0000 Signed Impressions: Service Date/Time: Thursday, January 05, 2017 14:37 - CONCLUSION: The bilateral adrenal masses have developed since the CT abdomen from 01/02/2017 and the most likely etiologies includes bilateral adrenal hemorrhage or possibly reactive hyperplasia. The exact etiology is not certain. Esperanza Odell MD Head CT 01/04/17 0848 Signed Impressions: Service Date/Time: Wednesday, January 04, 2017 08:58 - CONCLUSION: Unremarkable examination for each. Tyler Nagy MD Neck CT 01/04/17 0000 Signed Impressions: Service Date/Time: Wednesday, January 04, 2017 20:49 - CONCLUSION: Questionable thickening of the vocal cords. These can be directly inspected. Otherwise the study appears grossly normal for a noncontrast CT of the neck. Santos Whitley MD Lower Extremity Ultrasound 01/04/17 0000 Signed Impressions: Service Date/Time: Wednesday, January 04, 2017 18:55 - CONCLUSION: Partially occlusive thrombus in the right superficial femoral, popliteal and peroneal veins. No thrombus is seen on the left side. Santos Whitley MD Chest CT 01/04/17 0000 Signed Impressions: Service Date/Time: Wednesday, January 04, 2017 20:50 - CONCLUSION: 1. Mild bilateral pleural effusions with suspected accompanying areas of atelectasis or consolidation at the lung bases. 2. Coronary artery calcifications. Santos Whitley MD Brain MRI 01/04/17 0000 Signed Impressions: Service Date/Time: Wednesday, January 04, 2017 21:19 - CONCLUSION: Atrophy and mild chronic white matter changes. No acute infarct or other acute intracranial abnormality. Santos Arce MD Abdomen/Pelvis CT 01/04/17 0000 Signed Impressions: Service Date/Time: Wednesday, January 04, 2017 10:32 - CONCLUSION: 1. New abnormal bowel gas pattern of concern for distal small bowel obstruction. 2. New bilateral adrenal masses which were not present 2 days ago. The differential includes adrenal hemorrhage and/or hyperplasia. 3. New small pleural effusions right greater than left. 4. Mild diverticulosis. Tyler Nagy MD Physical Exam CONSTITUTIONAL/GENERAL: This is an adequately nourished patient, sedated intubated on [facility] vent TUBES/LINES/DRAINS: SKIN: No jaundice, rashes, or lesions.Vitiligo involving hands, feet primarily HEAD: Atraumatic. Normocephalic. EYES: Pupils equal and round and reactive. Extraocular motions intact. No scleral icterus. No injection or drainage. Fundi not examined. ENT: Hearing not tested. Nose without bleeding or purulent drainage. Oral mucosae moist without visible erythema, exudates, masses, or lesions. NG tube to suction with clear yellowish d/c NECK: Trachea midline. Supple, nontender. No palpable thyroid enlargement or nodularity. CARDIOVASCULAR: Regular rate and rhythm without murmurs, gallops, or rubs. No JVD. Peripheral pulses symmetric. RESPIRATORY/CHEST: Symmetric, unlabored respirations. Clear to auscultation. Breath sounds equal bilaterally. No wheezes, rales, or rhonchi. GASTROINTESTINAL: Abdomen soft toafay, no reaction to palpation, milsldy distended. no tympany to palpation No bowel sounds. RN reports rare hypoactive sounds, no flatus no BM No hepato-splenomegaly, or palpable masses. No guarding. Bowel sounds present. GENITOURINARY: Without palpable bladder distension. Parada catheter in place with clear yellow urine MUSCULOSKELETAL: Extremities without clubbing, cyanosis, or edema. Cold feet No calf tenderness. No mottling or clubbing. LYMPHATICS: No palpable cervical or supraclavicular adenopathy. NEUROLOGICAL: sedated; unresponsive, agitated PSYCHIATRIC: not possible to assess Assessment & Plan Remarks Assessment and Plan Sepsis - source is likley intra- abdominal: small bowel obstruction vs ileus - transition zone present - distal esophagus thickening ? significance Acute VDRF - leukocytosis, leukemoid reaction - worse - TIBURCIO ? vnco contributing ? new right lower lobe pneumonia - cont cefepime - sputum clx - dc vancomycin - cont flagyl - monitor clinically - will repeat CT a/p tomorrow if not improving or worse clnically dw Dr Santos Salinas,Ilana Martinez MD January 10, 2017 19:14
[2017-01-11] VITALS (17 sets, daily range): BP systolic 105–178; BP diastolic 57–88; PULSE 70–96; RESP 12–18; TEMP 97.6–99.8; O2SAT 96–100
[2017-01-11] MEDS: ALBUMIN HUMAN 25% 25 GM/100 ML BAGP IV SCH ×2 (00:43→12:53)
[2017-01-11] MEDS: DEXMEDETOMIDINE INJ 1,000 MCG in SODIUM CHLOR 0.9% 250 ML INJ 240 ML IV SCH ×3 (00:44→11:50)
[2017-01-11] MEDS: fentaNYL DRIP 250 ML IV SCH ×2 (00:44→14:47)
[2017-01-11] MEDS: LABETALOL HCL 100 MG/20 ML VIAL IV PUSH PRN ×5 (00:51→22:21)
[2017-01-11] MEDS: CHLORHEXIDINE GLUCONATE 2 % 1 PACK (2 CLOTHS) TOP SCH (03:03)
[2017-01-11] MEDS: CEFEPIME INJ 2,000 MG in SODIUM CHLORIDE 0.9% INJ 100 ML IV SCH ×2 (03:37→16:00)
[2017-01-11 05:31] LABS: BASOPHIL % 0.1 % (0.0-2.0); EOSINOPHIL # 0.1 TH/MM3 (0-0.4); EOSINOPHIL % 0.4 % (0.0-4.0); HEMATOCRIT 30.1 % (39.0-51.0); HEMO FLAGS DIFF FINAL; LYMPH % 2.2 % (9.0-44.0); LYMPHOCYTE # 0.5 TH/MM3 (1.0-4.8); MEAN CELL VOLUME 91.1 FL (80.0-100.0); MEAN CORPUSCULAR HEMOGLOBIN 30.8 PG (27.0-34.0); MEAN CORPUSCULAR HGB CONC 33.8 % (32.0-36.0); MONO % 3.6 % (0.0-8.0); NEUT % 93.7 % (16.0-70.0); PLATELET COUNT 158 TH/MM3 (150-450); RED CELL DISTRIBUTION WIDTH 16.3 % (11.6-17.2); WHITE BLOOD COUNT 23.5 TH/MM3 (4.0-11.0)
[2017-01-11 05:48] LABS: ALKALINE PHOSPHATASE 110 U/L (45-117); ALT (GPT) 26 U/L (12-78); ANION GAP 12 MEQ/L (5-15); AST (GOT) 21 U/L (15-37); BICARBONATE 20.2 MEQ/L (21.0-32.0); BLOOD UREA NITROGEN 56 MG/DL (7-18); CHLORIDE 108 MEQ/L (98-107); GLOMERULAR FILTRATION RATE 36 ML/MIN (>89); MAGNESIUM 2.6 MG/DL (1.5-2.5); POTASSIUM 3.9 MEQ/L (3.5-5.1); SODIUM (NA) 140 MEQ/L (136-145); TOTAL BILIRUBIN ADULT 1.6 MG/DL (0.2-1.0)
[2017-01-11] MEDS: metroNIDAZOLE 500 MG INJ 100 ML IV SCH ×3 (06:21→21:09)
[2017-01-11] MEDS: HYDROCORTISONE SOD SUCCINATE 100 MG VIAL IV PUSH SCH ×3 (06:21→21:09)
[2017-01-11] MEDS: INSULIN NovoLIN REGULAR SUPPLEMENTAL SCALE SQ SCH ×4 (06:33→21:00)
[2017-01-11 07:52] LABS: PHOSPHATIDYLSERINE AB IGA LESS THAN 20.0 U/mL (()); PHOSPHATIDYLSERINE AB IGM LESS THAN 25.0 U/mL (())
[2017-01-11] MEDS: CHLORHEXIDINE 0.12% (ORAL KIT) 15 ML CUP MT SCH ×2 (08:09→20:52)
[2017-01-11] MEDS: ARTIFICIAL TEARS OPTH SOLN 15 ML BTL EACH EYE SCH ×3 (08:10→17:02)
[2017-01-11] MEDS: DOCUSATE SODIUM 100 MG CAP PO SCH ×2 (08:12→21:08)
[2017-01-11] MEDS: THIAMINE INJ 100 MG in SODIUM CHLORIDE 0.9% INJ 100 ML IV SCH (08:12)
[2017-01-11] MEDS: FOLIC ACID 1 MG TAB PO SCH (08:12)
[2017-01-11] MEDS: BUMETANIDE INJ 1 MG/4 ML VIAL IV PUSH SCH ×2 (08:12→17:02)
[2017-01-11] MEDS: MULTIVITAMIN TAB PO SCH (08:12)
[2017-01-11] MEDS: METOPROLOL TARTRATE 25 MG TAB PO SCH ×2 (08:12→21:08)
[2017-01-11] MEDS: PANTOPRAZOLE SODIUM 40 MG VIAL IV SCH (08:13)
[2017-01-11] MEDS: SODIUM CHLORIDE 0.9% FLUSH 10 ML FLUSH IV FLUSH SCH ×2 (08:13→21:00)
[2017-01-11] MEDS: POTASSIUM BICARBONATE 25 MEQ EFFERVESCENT TAB PO SCH (08:46)
[2017-01-11] MEDS: hydrALAZINE HCL 20 MG/ML VIAL IV PUSH PRN (12:54)
--- NOTE | 2017-01-11 13:11 | HHI.CCPN ---
Subjective Remarks/Hospital Course 76-year-old Male. Date of Admission 01/04/2017. 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 This Is 5 x 5 Cm. Covered in Blue Bandage. Patient Presents to [facility] after Being Discharged 01/02 with Altered Mental Status. 01/[address] abdomen pelvis which showed induration of the right kidney possibly past of possible pyelonephritis. UA was negative for infection. 2 cm cyst at the left kidney pole. Sigmoid diverticulosis. Degenerative disc disease lumbar spine. Patient did have a low-sodium 126 at that time.at that time, he was complaining of severe bilateral flank pain. Was associated after eating greasy food at [facility]. Associated with nausea and vomiting Saturday and Saturday prior to admission. He felt better the next morning was sent home on Levaquin. Day, patient was found confused and altered by his roommate this morning. Was transferred to [facility]. CT abdomen and pelvis revealed a right-sided 3.6 x 2.5 cm left 2.5 adrenal mass. Possible hemorrhage. Dilated esophagus with thickening, and dilated stomach, colon diverticula. Possible small bowel obstruction. NG tube was placed with 800cc brown gastric contents removed. /general surgery was consulted and has seen the patient for possible small bowel obstruction. Patient is room air, hypertensive requiring 40 mg labetalol. 01/05: Patient more agitated with fever 102, tachycardia worse, and diffuse wheezing, labored respiratory effort. Na 116. Received 100 ml 3% saline, lasix 40 mg, intubation and ventilation. Head CT and MRI normal aside from atrophy. 01/06: Tmax 98.7. Continued elevation in WBC count. ID consult to Dr. Salinas following, Flagyl was added to medication regime yesterday. The patient was placed on a 2% sodium infusion for hyponatremia. Coagulant studies still pending, no growth from blood cultures will obtain sputum culture today. Patient continues on vasopressor support requiring Phenylephrine. 01/07 Tmax 98.8. The patient went into A. fib RVR last night heart rate 150's, phenylephrine was increased, currently in A. fib rate controlled 90's. Phenylephrine continues to be infused at 60 mcgs. Sodium level 134, 2% sodium infusion discontinued. 01/08: Tachycardia persists. Renal function acceptable, lytes require repletion , add K. 01/09: Tolerating CPAP trails with PS 10. BP 220/145. Convert to precedex, attempt to extubated. 01/10: On Precedex and fentanyl infusions to facilitate weaning trials. Remains fluid overloaded. Approximately 15 KG up. Will start Bumex today with IV albumin. 01/11: White count rising, new right lung infiltrate. Objective Vital Signs Date Time Temp Pulse Resp B/P Pulse Ox O2 Delivery O2 Flow Rate FiO2 01/11/17 12:00 98.8 76 12 105/57 99 01/11/17 12:00 45 01/11/17 07:00 Mechanical Ventilator Intake and Output 01/10/17 01/10/17 01/11/17 08:00 16:00 00:00 Intake Total 1055 ml 1275 ml 799 ml Output Total 450 ml 400 ml 3175 ml Balance 605 ml 875 ml -2376 ml Result Diagram: 01/11/1751001/11/17 05 Imaging Last Impressions Chest X-Ray 01/07/17 0000 Signed Impressions: Service Date/Time: Saturday, January 07, 2017 01:13 - CONCLUSION: 1. Cardiomegaly. Left lower lobe atelectasis versus pneumonia. 2. Cardiomegaly and findings of vascular congestion without overt failure. There has been no significant change when compared to the prior exam. Aneudy Dennis MD Head Magnetic Resonance Angiography 01/05/17 0000 Signed Impressions: Service Date/Time: Thursday, January 05, 2017 14:37 - CONCLUSION: Normal examination. Esperanza Odell MD Abdomen MRI 01/05/17 0000 Signed Impressions: Service Date/Time: Thursday, January 05, 2017 14:37 - CONCLUSION: The bilateral adrenal masses have developed since the CT abdomen from 01/02/2017 and the most likely etiologies includes bilateral adrenal hemorrhage or possibly reactive hyperplasia. The exact etiology is not certain. Esperanza Odell MD Head CT 01/04/17 0848 Signed Impressions: Service Date/Time: Wednesday, January 04, 2017 08:58 - CONCLUSION: Unremarkable examination for each. Tyler Nagy MD Neck CT 4/28/17 0000 Signed Impressions: Service Date/Time: Wednesday, January 04, 2017 20:49 - CONCLUSION: Questionable thickening of the vocal cords. These can be directly inspected. Otherwise the study appears grossly normal for a noncontrast CT of the neck. Santos Whitley MD Lower Extremity Ultrasound 01/04/17 Signed Impressions: Service Date/Time: Wednesday, January 04, 2017 18:55 - CONCLUSION: Partially occlusive thrombus in the right superficial femoral, popliteal and peroneal veins. No thrombus is seen on the left side. Santos Whitley MD Chest CT 01/04/17 Signed Impressions: Service Date/Time: Wednesday, January 04, 2017 20:50 - CONCLUSION: 1. Mild bilateral pleural effusions with suspected accompanying areas of atelectasis or consolidation at the lung bases. 2. Coronary artery calcifications. Santos Whitley MD Brain MRI 01/04/17 Signed Impressions: Service Date/Time: Wednesday, January 04, 2017 21:19 - CONCLUSION: Atrophy and mild chronic white matter changes. No acute infarct or other acute intracranial abnormality. Santos Arce MD Abdomen/Pelvis CT 01/04/17 Signed Impressions: Service Date/Time: Wednesday, January 04, 2017 10:32 - CONCLUSION: 1. New abnormal bowel gas pattern of concern for distal small bowel obstruction. 2. New bilateral adrenal masses which were not present 2 days ago. The differential includes adrenal hemorrhage and/or hyperplasia. 3. New small pleural effusions right greater than left. 4. Mild diverticulosis. Tyler Nagy MD Last Impressions Head CT 01/04/17 0848 Signed Impressions: Service Date/Time: Wednesday, January 04, 2017 08:58 - CONCLUSION: Unremarkable examination for each. Tyler Nagy MD Chest X-Ray 01/04/17 Signed Impressions: Service Date/Time: Wednesday, January 04, 2017 08:59 - CONCLUSION: No acute disease. There is no evidence of pneumonia. Tyler Nagy MD Abdomen/Pelvis CT 01/04/17 Signed Impressions: Service Date/Time: Wednesday, January 04, 2017 10:32 - CONCLUSION: 1. New abnormal bowel gas pattern of concern for distal small bowel obstruction. 2. New bilateral adrenal masses which were not present 2 days ago. The differential includes adrenal hemorrhage and/or hyperplasia. 3. New small pleural effusions right greater than left. 4. Mild diverticulosis. Tyler Nagy MD Objective Remarks Precedex Fentanyl P/E GENERAL: 76-year-old critically ill appearing male, intubated and sedated. Edematous. SKIN: Warm, flushed, damp. Ecchymotic region to right lower extremity/medial ankle. Chronic venous stasis wound HEAD: Atraumatic. Normocephalic. EYES: Pupils equal and round about 2 mm bilaterally, reactive. ENT: No nasal bleeding or discharge. Mucous membranes pink and moist. NECK: Trachea midline. Orally intubated. CARDIOVASCULAR: S1, S2 normal. No S4. rate 100s, RESPIRATORY: Mechanical ventilation, now on PSV12/5, attempts to take deep breaths. Right rhonchi. No wheezes. GASTROINTESTINAL: Abdomen remains distended. No guarding. Nontender. Active bowel sounds are appreciated NG tube to LIS MUSCULOSKELETAL: Bilateral lower extremity edema. NEUROLOGICAL: Moving extremities 4, opens eyes, follows commands. Anxious Date of Insertion: Jan 04, 2017 Date of Insertion: Jan 04, 2017 Side: Left Location: Subclavian A/P Assessment and Plan Neuro/Psych: Acute toxic metabolic encephalopathy History of EtOH Depression/anxiety Currently on Precedex and fentanyl to facilitate ventilator weaning CT head 01/04 reveals no acute intracranial abnormalities Holding bupropion 150 mg by mouth daily, Hold Ultram and Percocet with altered mental status currently Thiamine/folate/multivitamin daily with EtOH use MRI/A brain 01/05- normal exam Monitor for alcohol withdrawal-seizure precautions CV: Fluid overload Right lower extremity DVT Hypertension Start Bumex 1mg IV q12, IV albumin 25 g every 12 hours both for 3 days Weight up by 15 kg As needed hydralazine/labetalol/Nitropaste to maintain systolic blood pressure was 160 Home medication of Lopressor 25 mg BID- on hold Follow up on troponin 0.02.. Will trend 01/05 right lower extremity Dopplers ultrasound for DVT-partially occlusive thrombus right SFA, popliteal and peroneal veins Resp: Acute hypoxic respiratory failure requiring intubation Mechanical ventilation 14/500/0.40/5. On CPAP, but appears fatigued, with agonal appearing breathing-placed back on full vent support Ventilator bundle. Chest x-ray 01/04 reveals no acute cardiopulmonary findings Required intubation 01/05 for labored breathing due to bronchospasm. Bronchospasm corrected 01/09 GI: Small bowel obstruction versus ileus CT abd/pelvis 01/04 revealed right 3.6 x 2.4 cm and left 2.5 x 1.4 cm adrenal masses. Distal esophagus with thickening. Dilated stomach.: Colonic Diverticuli. Compressed colon. Possible bowel obstruction. Dr. Saleh/general surgery consulted-medical management at this time. Tentative plan for possible small bowel follow-through MRI suggested bilateral adrenal hemorrhage Negative ultrasound gallbladder 01/02 Renal: Acute kidney injury Proteinuria Patient states he needed kidney biopsy in past but refused Follow-up a.m. BMP Accurate I's and O's Monitor urine output Follow-up ADH level Endo: Adrenal mass -bilateral possible hemorrhage B/L adrenal hemorrhage See CT abdomen/pelvis results above. Follow-up on adrenal insufficiency workup ADH ordered -results pending Noted hypertensive. Potassium normal. Continue hydrocortisone 50 mg 3 times a day Sliding-scale insulin with Accu-Cheks to maintain euglycemia/low regimen Heme: Leukocytosis Thrombocytosis Chronic Xarelto use Follow CBC name. Monitor trends. 25-> 32-> 28 today, downtrending .01/06 Flagyl added to medication regimen Unknown if infectious etiology. ID consult toDr. Salinas UA negative. Procalcitonin normal ID: Receive 1 dose Rocephin in ED. Previously on Levaquin daily Vancomycin/cefepime/Flagyl. DC Vanc due to worsening renal function Monitor for infection Pertinent cultures 01/04 - blood cultures 2 - negative 01/04 - UA - negative 01/02 - blood cultures 2 - negative FEN: Hyponatremia - hypoosmolar 01/04 Cortisol level equivocal/F/u on cosyntropin test TSH was 1.12. Uric acid 3.0. Lipid panel ordered. 2% NaCl infusion-discontinued Continue 0.9 sodium chloride at 84 cc/hour-DCd now due to fluid overload Continue every 6 hours sodium level monitoring MSK: Right lower extremity wound Wound care evaluation Access - Utilize peripheral IV. Left subclavian 01/04. Radial a line removed 2 in 2 days , secondary to clotting Prophylaxis - GI - Protonix - DVT - SCD/holding Xarelto in light of possible adrenal hemorrhage Overall impression: Remains septic and ventilator dependent. He will require at least 2 additional ICU days. Unable to wean ventilator. Critical Care 38 mins Kingsley Alba MD January 11, 2017 13:11
--- NOTE | 2017-01-11 15:46 | HHI.IDPN ---
Subjective Subjective Remarks afebrile on vent creatinine going up fluid overload still no BM Antibiotics flagyl cefepime Allergies: Coded Allergies: No Known Allergies (Unverified , 01/02/17) Objective . Vital Signs Date Time Temp Pulse Resp B/P Pulse Ox O2 Delivery O2 Flow Rate FiO2 01/11/17 14:00 96 01/11/17 12:00 98.8 76 12 105/57 99 01/11/17 12:00 45 01/11/17 12:00 70 01/11/17 10:00 90 01/11/17 08:00 45 01/11/17 08:00 98.3 76 14 178/82 97 01/11/17 08:00 76 01/11/17 07:53 99 40 01/11/17 07:00 98 Mechanical Ventilator 40 01/11/17 06:00 84 01/11/17 04:00 97.6 72 14 132/81 98 01/11/17 04:00 72 01/11/17 04:00 98 40 01/11/17 04:00 45 01/11/17 02:00 82 01/11/17 01:16 97 40 01/11/17 00:00 78 01/11/17 00:00 97.9 78 12 119/68 96 01/11/17 00:00 45 01/10/17 22:00 81 01/10/17 21:56 98 40 01/10/17 20:00 90 01/10/17 20:00 98.7 90 17 163/90 96 01/10/17 20:00 45 01/10/17 19:22 97 40 01/10/17 19:00 96 Mechanical Ventilator 40 01/10/17 18:00 87 01/10/17 16:00 45 01/10/17 16:00 84 01/10/17 16:00 99.8 87 17 161/88 96 01/10/17 01/10/17 01/11/17 15:00 23:00 07:00 Intake Total 1275 ml 799 ml 832 ml Output Total 400 ml 3175 ml 900 ml Balance 875 ml -2376 ml -68 ml IV Total 1115 ml 769 ml 732 ml Albumin 100 ml 100 ml Tube Irrigant 60 ml 30 ml Output Urine Total 400 ml 3175 ml 900 ml Gastric Drainage Total 0 ml 0 ml 0 ml # Bowel Movements 0 0 0 . Laboratory Tests Test 5/4/17 5/5/17 04:12 05:11 White Blood Count 22.7 TH/MM3 23.5 TH/MM3 Red Blood Count 3.45 MIL/MM3 3.30 MIL/MM3 Hemoglobin 10.6 GM/DL 10.2 GM/DL Hematocrit 31.4 % 30.1 % Mean Corpuscular Volume 91.1 FL 91.1 FL Mean Corpuscular Hemoglobin 30.6 PG 30.8 PG Mean Corpuscular Hemoglobin 33.6 % 33.8 % Concent Red Cell Distribution Width 16.6 % 16.3 % Platelet Count 160 TH/MM3 158 TH/MM3 Mean Platelet Volume 8.6 FL 9.2 FL Neutrophils (%) (Auto) 91.5 % 93.7 % Lymphocytes (%) (Auto) 3.2 % 2.2 % Monocytes (%) (Auto) 5.2 % 3.6 % Eosinophils (%) (Auto) 0.0 % 0.4 % Basophils (%) (Auto) 0.1 % 0.1 % Neutrophils # (Auto) 20.7 TH/MM3 22.0 TH/MM3 Lymphocytes # (Auto) 0.7 TH/MM3 0.5 TH/MM3 Monocytes # (Auto) 1.2 TH/MM3 0.9 TH/MM3 Eosinophils # (Auto) 0.0 TH/MM3 0.1 TH/MM3 Basophils # (Auto) 0.0 TH/MM3 0.0 TH/MM3 CBC Comment AUTO DIFF DIFF FINAL Differential Comment AUTO DIFF CONFIRMED Platelet Estimate NORMAL Platelet Morphology Comment NORMAL Ovalocytes 1+ Keratocytes OCC Laboratory Tests Test 01/10/17 01/11/17 04:12 05:11 Sodium Level 138 MEQ/L 140 MEQ/L Potassium Level 3.9 MEQ/L 3.9 MEQ/L Chloride Level 108 MEQ/L 108 MEQ/L Carbon Dioxide Level 21.3 MEQ/L 20.2 MEQ/L Anion Gap 9 MEQ/L 12 MEQ/L Blood Urea Nitrogen 47 MG/DL 56 MG/DL Creatinine 1.63 MG/DL 1.82 MG/DL Estimat Glomerular Filtration 41 ML/MIN 36 ML/MIN Rate Random Glucose 118 MG/DL 138 MG/DL Calcium Level 7.8 MG/DL 8.5 MG/DL Magnesium Level 2.6 MG/DL Total Bilirubin 1.6 MG/DL Aspartate Amino Transf 21 U/L (AST/SGOT) Alanine Aminotransferase 26 U/L (ALT/SGPT) Alkaline Phosphatase 110 U/L Total Protein 5.8 GM/DL Albumin 2.6 GM/DL Microbiology Date/Time Procedure Status Source Growth 01/10/17 20:09 Gram Stain - Final Resulted Sputum Endotracheal 01/10/17 20:09 Sputum Culture - Preliminary Resulted Sputum Endotracheal NO GROWTH IN 24 HOURS. Imaging Last Impressions Chest X-Ray 01/10/17 0000 Signed Impressions: Service Date/Time: January 12:54 - CONCLUSION: 1. New area of infiltrate involving the right lower lobe. This is concerning for a pneumonia. 2. Support equipment in satisfactory position. Flash Clinton MD Head Magnetic Resonance Angiography 01/05/17 0000 Signed Impressions: Service Date/Time: Thursday, January 05, 2017 14:37 - CONCLUSION: Normal examination. Espreanza Odell MD Abdomen MRI 01/05/17 0000 Signed Impressions: Service Date/Time: Thursday, January 05, 2017 14:37 - CONCLUSION: The bilateral adrenal masses have developed since the CT abdomen from 01/02/2017 and the most likely etiologies includes bilateral adrenal hemorrhage or possibly reactive hyperplasia. The exact etiology is not certain. Esperanza Odell MD Head CT 01/04/17 0848 Signed Impressions: Service Date/Time: Wednesday, January 04, 2017 08:58 - CONCLUSION: Unremarkable examination for each. Tyler Nagy MD Neck CT 01/04/17 0000 Signed Impressions: Service Date/Time: Wednesday, January 04, 2017 20:49 - CONCLUSION: Questionable thickening of the vocal cords. These can be directly inspected. Otherwise the study appears grossly normal for a noncontrast CT of the neck. Santos Whitley MD Lower Extremity Ultrasound 01/04/17 Signed Impressions: Service Date/Time: Wednesday, January 04, 2017 18:55 - CONCLUSION: Partially occlusive thrombus in the right superficial femoral, popliteal and peroneal veins. No thrombus is seen on the left side. Santos Whitley MD Chest CT 01/04/17 0000 Signed Impressions: Service Date/Time: Wednesday, January 04, 2017 20:50 - CONCLUSION: 1. Mild bilateral pleural effusions with suspected accompanying areas of atelectasis or consolidation at the lung bases. 2. Coronary artery calcifications. Santos Whitley MD Brain MRI 01/04/17 0000 Signed Impressions: Service Date/Time: Wednesday, January 04, 2017 21:19 - CONCLUSION: Atrophy and mild chronic white matter changes. No acute infarct or other acute intracranial abnormality. Santos Arce MD Abdomen/Pelvis CT 01/04/17 0000 Signed Impressions: Service Date/Time: Wednesday, January 04, 2017 10:32 - CONCLUSION: 1. New abnormal bowel gas pattern of concern for distal small bowel obstruction. 2. New bilateral adrenal masses which were not present 2 days ago. The differential includes adrenal hemorrhage and/or hyperplasia. 3. New small pleural effusions right greater than left. 4. Mild diverticulosis. Tyler Nagy MD Physical Exam CONSTITUTIONAL/GENERAL: This is an adequately nourished patient, sedated intubated on [facility] vent TUBES/LINES/DRAINS: SKIN: No jaundice, rashes, or lesions.Vitiligo involving hands, feet primarily Anansarca HEAD: Atraumatic. Normocephalic. EYES: Pupils equal and round and reactive. Extraocular motions intact. No scleral icterus. No injection or drainage. Fundi not examined. ENT: Hearing not tested. Nose without bleeding or purulent drainage. Oral mucosae moist without visible erythema, exudates, masses, or lesions. NG tube to suction with clear yellowish d/c NECK: Trachea midline. Supple, nontender. No palpable thyroid enlargement or nodularity. CARDIOVASCULAR: Regular rate and rhythm without murmurs, gallops, or rubs. No JVD. Peripheral pulses symmetric. RESPIRATORY/CHEST: Symmetric, unlabored respirations. Rhonchi to auscultation. Breath sounds equal bilaterally. No wheezes, rales, or rhonchi. GASTROINTESTINAL: Abdomen soft, no reaction to palpation, milsldy distended. no tympany to palpation No bowel sounds. RN reports rare hypoactive sounds, no flatus no BM No hepato-splenomegaly, or palpable masses. No guarding. Bowel sounds present. GENITOURINARY: Without palpable bladder distension. Parada catheter in place with clear yellow urine MUSCULOSKELETAL: Extremities without clubbing, cyanosis, + massive 4+ edema. Extremeties perfused . No calf tenderness. No mottling or clubbing. LYMPHATICS: No palpable cervical or supraclavicular adenopathy. NEUROLOGICAL: sedated; unresponsive, agitated PSYCHIATRIC: not possible to assess Assessment & Plan Remarks Assessment and Plan Sepsis - source is likley intra- abdominal: small bowel obstruction vs ileus - transition zone present - distal esophagus thickening ? significance Acute VDRF - leukocytosis, leukemoid reaction - worse - TIBURCIO ? vnco contributing ? new right lower lobe pneumonia - clx is no growth so far - cont cefepime - fu sputum clx - dc vancomycin - cont flagyl - monitor clinically - repeat CT a/p wo contrast Ilana Salinas MD January 11, 2017 15:46
[2017-01-11] MEDS ORDERED: DIATRIZOATE MEGLUM/DIATRIZOATE SOD 9 ML CUP PO ONE (16:15)
--- NOTE | 2017-01-11 16:40 | HHI.PR ---
Subjective Subjective Notes Intubated/Sedated Objective Vitals/I&O Vital Signs Date Time Temp Pulse Resp B/P Pulse Ox O2 Delivery O2 Flow Rate FiO2 01/11/17 15:48 98 40 01/11/17 14:00 96 01/11/17 12:00 98.8 12 105/57 01/11/17 07:00 Mechanical Ventilator Labs Laboratory Tests Test 01/11/17 05:11 White Blood Count 23.5 Red Blood Count 3.30 Hemoglobin 10.2 Hematocrit 30.1 Mean Corpuscular Volume 91.1 Mean Corpuscular Hemoglobin 30.8 Mean Corpuscular Hemoglobin 33.8 Concent Red Cell Distribution Width 16.3 Platelet Count 158 Mean Platelet Volume 9.2 Neutrophils (%) (Auto) 93.7 Lymphocytes (%) (Auto) 2.2 Monocytes (%) (Auto) 3.6 Eosinophils (%) (Auto) 0.4 Basophils (%) (Auto) 0.1 Neutrophils # (Auto) 22.0 Lymphocytes # (Auto) 0.5 Monocytes # (Auto) 0.9 Eosinophils # (Auto) 0.1 Basophils # (Auto) 0.0 CBC Comment DIFF FINAL Differential Comment Sodium Level 140 Potassium Level 3.9 Chloride Level 108 Carbon Dioxide Level 20.2 Anion Gap 12 Blood Urea Nitrogen 56 Creatinine 1.82 Estimat Glomerular Filtration 36 Rate Random Glucose 138 Calcium Level 8.5 Magnesium Level 2.6 Total Bilirubin 1.6 Aspartate Amino Transf 21 (AST/SGOT) Alanine Aminotransferase 26 (ALT/SGPT) Alkaline Phosphatase 110 Total Protein 5.8 Albumin 2.6 Date/Time Procedure Status Source Growth 01/10/17 20:09 Gram Stain - Final Resulted Sputum Endotracheal 01/10/17 20:09 Sputum Culture - Preliminary Resulted Sputum Endotracheal NO GROWTH IN 24 HOURS. Cardiovascular: Regular Lungs: Clear Abdomen: Other (abdomen distended but improved from yesterday's exam ) Extremities: Other (generalized edema ) A/P Assessment and Plan 76 year old male, MOSF; likely ileus secondary to medical conditions -Vent per CCM -ID following---ordered CT a/p ---will follow up images -will continue to follow. -continue NG tube to LIWS Attending Statement The exam, history, and the medical decision-making described in the above note were completed with the assistance of the mid-level provider. I reviewed and agree with the findings presented. I attest that I had a [id number] encounter with the patient on the same day, and personally performed and documented my assessment and findings in the medical record. Abdominal exam stable, no tenderness on exam, no rebound tenderness or peritonitis continue supportive care Nancy Benson January 11, 2017 16:39 Bharat Saleh MD February 05, 2017 16:10
--- NOTE | 2017-01-11 21:06 | RADRPT ---
EXAM DATE/TIME: 01/11/2017 20:00 [facility] COMPARISON: CT ABDOMEN & PELVIS W CONTRAST, January 04, 2017, 10:32. CT ABDOMEN & PELVIS W/O CONTRAST, January 02 017, 19:50. INDICATIONS : Abdominal distention ORAL CONTRAST: Prescribed oral contrast ingested. RADIATION DOSE: 16.23 CTDIvol (mGy) MEDICAL HISTORY : Deep venous thrombosis. Hypertension. SURGICAL HISTORY : Hernia ENCOUNTER: Initial ACUITY: 1 week PAIN SCALE: Non-responsive LOCATION: Abdomen TECHNIQUE: Volumetric scanning of the abdomen and pelvis was performed. Using automated exposure control and ad justment of the mA and/or kV according to patient size, radiation dose was kept as low as reasonably achievable to obtain optimal diagnostic quality images. FINDINGS: Noncontrast appearance of the liver and spleen within normal limits. Bilateral adrenal hemorrhage aga in noted. Pancreas and kidneys are without an acute abnormality. No obstruction or acute inflammatory changes seen of the gastrointestinal tract. No free air or lymphadenopathy. Small ascites has developed. Nothing organized or drainable. There ar e small to moderate pleural effusion seen, new/larger. There is patchy infiltrate in the visualized r ight lung base. There is also new body wall edema/anasarca. CONCLUSION: 1. Subacute hemorrhage of both adrenal glands, not significantly changed on the left, smaller on the right. 2. Increased/new pleural fluid at both bases, new, small ascites, new body wall edema/anasarca. 3. No evidence of bowel obstruction. Nasogastric tube coiled in the stomach. 4. Patchy airspace consolidation of the right lung base, new. Santos Arce MD on January 11, 2017 at 21:00 Board Certified Radiologist. This report was verified electronically.
[2017-01-12] VITALS (18 sets, daily range): BP systolic 111–170; BP diastolic 59–96; PULSE 65–110; RESP 12–26; TEMP 97.6–99; O2SAT 93–100
[2017-01-12] MEDS: ALBUMIN HUMAN 25% 25 GM/100 ML BAGP IV SCH (01:58)
[2017-01-12] MEDS: fentaNYL DRIP 250 ML IV SCH ×3 (02:14→23:01)
[2017-01-12] MEDS: DEXMEDETOMIDINE INJ 1,000 MCG in SODIUM CHLOR 0.9% 250 ML INJ 240 ML IV SCH ×3 (02:30→20:17)
[2017-01-12] MEDS: RESP: ALBUTEROL 2.5 MG/3 ML NEB (PRN) INH ×2 (03:38→19:54)
[2017-01-12] MEDS: CHLORHEXIDINE GLUCONATE 2 % 1 PACK (2 CLOTHS) TOP SCH (04:00)
[2017-01-12] MEDS: CEFEPIME INJ 2,000 MG in SODIUM CHLORIDE 0.9% INJ 100 ML IV SCH ×2 (04:11→16:11)
[2017-01-12] MEDS: hydrALAZINE HCL 20 MG/ML VIAL IV PUSH PRN ×2 (04:12→14:36)
[2017-01-12 04:31] LABS: AUTOMATED NEUTROPHIL # 21.7 TH/MM3 (1.8-7.7); BASOPHIL % 0.2 % (0.0-2.0); HEMATOCRIT 28.8 % (39.0-51.0); LYMPHOCYTE # 0.5 TH/MM3 (1.0-4.8); MEAN CELL VOLUME 90.8 FL (80.0-100.0); MEAN CORPUSCULAR HGB CONC 34.1 % (32.0-36.0); MONO % 5.1 % (0.0-8.0); NEUT % 92.7 % (16.0-70.0); PLATELET COUNT 174 TH/MM3 (150-450); RED BLOOD COUNT 3.17 MIL/MM3 (4.50-5.90); RED CELL DISTRIBUTION WIDTH 16.7 % (11.6-17.2); WHITE BLOOD COUNT 23.5 TH/MM3 (4.0-11.0)
[2017-01-12 04:37] LABS: HEMO FLAGS AUTO DIFF
[2017-01-12 04:58] LABS: ANION GAP 13 MEQ/L (5-15); AST (GOT) 17 U/L (15-37); BICARBONATE 21.4 MEQ/L (21.0-32.0); BLOOD UREA NITROGEN 58 MG/DL (7-18); CHLORIDE 107 MEQ/L (98-107); GLOMERULAR FILTRATION RATE 37 ML/MIN (>89); POTASSIUM 3.3 MEQ/L (3.5-5.1); SODIUM (NA) 141 MEQ/L (136-145)
[2017-01-12 05:02] LABS: ALKALINE PHOSPHATASE 99 U/L (45-117); ALT (GPT) 21 U/L (12-78); TOTAL BILIRUBIN ADULT 1.5 MG/DL (0.2-1.0)
[2017-01-12 05:24] LABS: PLATELET ESTIMATE SMEAR NORMAL (NORMAL); PLATELET MORPHOLOGY NORMAL (NORMAL); SCAN/DIFF AUTO DIFF CONFIRMED; TOXIC GRANULATION 1+ (NORMAL)
[2017-01-12] MEDS ORDERED: PHARMACY ORDERED LAB ONE (06:00)
[2017-01-12] MEDS: POTASSIUM CHLOR 40 MEQ PREMIX 100 ML IV PRN (06:05)
[2017-01-12] MEDS: metroNIDAZOLE 500 MG INJ 100 ML IV SCH ×3 (06:06→21:21)
[2017-01-12] MEDS: HYDROCORTISONE SOD SUCCINATE 100 MG VIAL IV PUSH SCH ×3 (06:06→21:17)
--- NOTE | 2017-01-12 06:32 | RADRPT ---
EXAM DATE/TIME: 01/12/2017 04:16 [facility] COMPARISON: CHEST SINGLE AP, January 10, 2017, 12:54. INDICATIONS : Shortness of breath, possible pulmonary disease. MEDICAL HISTORY : None. SURGICAL HISTORY : None. ENCOUNTER: Subsequent ACUITY: 1 week PAIN SCORE: Non-responsive. LOCATION: Bilateral chest FINDINGS: A single view of the chest demonstrates persistent right perihilar airspace disease. Increasing airsp anders disease in the right upper lobe with patchy densities in the left perihilar and left lower lobe. Heart mildly enlarged. Endotracheal tube, nasogastric tube and left subclavian central line are stabl e in position. Osseous structures are intact. CONCLUSION: 1. Stable right perihilar airspace disease. 2. Increasing airspace disease in the right upper lobe with patchy densities remaining in the left pe rihilar and left lower lobe. Dk Benedict MD on January 12, 2017 at 6:24 Board Certified Radiologist. This report was verified electronically.
[2017-01-12] MEDS: INSULIN NovoLIN REGULAR SUPPLEMENTAL SCALE SQ SCH ×4 (06:36→21:21)
[2017-01-12] MEDS: CHLORHEXIDINE 0.12% (ORAL KIT) 15 ML CUP MT SCH ×2 (08:47→20:09)
[2017-01-12] MEDS: LABETALOL HCL 100 MG/20 ML VIAL IV PUSH PRN ×2 (08:47→14:07)
[2017-01-12] MEDS: BUMETANIDE INJ 1 MG/4 ML VIAL IV PUSH SCH (09:19)
[2017-01-12] MEDS: PANTOPRAZOLE SODIUM 40 MG VIAL IV SCH (09:19)
[2017-01-12] MEDS: SODIUM CHLORIDE 0.9% FLUSH 10 ML FLUSH IV FLUSH SCH ×2 (09:20→20:09)
[2017-01-12] MEDS: THIAMINE INJ 100 MG in SODIUM CHLORIDE 0.9% INJ 100 ML IV SCH (09:20)
[2017-01-12] MEDS: MULTIVITAMIN TAB PO SCH (09:21)
[2017-01-12] MEDS: FOLIC ACID 1 MG TAB PO SCH (09:21)
[2017-01-12] MEDS: DOCUSATE SODIUM 100 MG CAP PO SCH ×2 (09:21→21:17)
[2017-01-12] MEDS: POTASSIUM BICARBONATE 25 MEQ EFFERVESCENT TAB PO SCH (09:21)
[2017-01-12] MEDS: ARTIFICIAL TEARS OPTH SOLN 15 ML BTL EACH EYE SCH ×3 (09:21→20:09)
[2017-01-12] MEDS: METOPROLOL TARTRATE 25 MG TAB PO SCH ×2 (09:24→21:17)
--- NOTE | 2017-01-12 10:53 | HHI.CCPN ---
Subjective Remarks/Hospital Course 76-year-old Male. Date of Admission 01/04/2017. 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 This Is 5 x 5 Cm. Covered in Blue Bandage. Patient Presents to [facility] after Being Discharged 01/02 with Altered Mental Status. 01/[address] abdomen pelvis which showed induration of the right kidney possibly past of possible pyelonephritis. UA was negative for infection. 2 cm cyst at the left kidney pole. Sigmoid diverticulosis. Degenerative disc disease lumbar spine. Patient did have a low-sodium 126 at that time.at that time, he was complaining of severe bilateral flank pain. Was associated after eating greasy food at [facility]. Associated with nausea and vomiting Saturday and Saturday prior to admission. He felt better the next morning was sent home on Levaquin. Day, patient was found confused and altered by his roommate this morning. Was transferred to [facility]. CT abdomen and pelvis revealed a right-sided 3.6 x 2.5 cm left 2.5 adrenal mass. Possible hemorrhage. Dilated esophagus with thickening, and dilated stomach, colon diverticula. Possible small bowel obstruction. NG tube was placed with 800cc brown gastric contents removed. /general surgery was consulted and has seen the patient for possible small bowel obstruction. Patient is room air, hypertensive requiring 40 mg labetalol. 01/05: Patient more agitated with fever 102, tachycardia worse, and diffuse wheezing, labored respiratory effort. Na 116. Received 100 ml 3% saline, lasix 40 mg, intubation and ventilation. Head CT and MRI normal aside from atrophy. 01/06: Tmax 98.7. Continued elevation in WBC count. ID consult to Dr. Salinas following, Flagyl was added to medication regime yesterday. The patient was placed on a 2% sodium infusion for hyponatremia. Coagulant studies still pending, no growth from blood cultures will obtain sputum culture today. Patient continues on vasopressor support requiring Phenylephrine. 01/07 Tmax 98.8. The patient went into A. fib RVR last night heart rate 150's, phenylephrine was increased, currently in A. fib rate controlled 90's. Phenylephrine continues to be infused at 60 mcgs. Sodium level 134, 2% sodium infusion discontinued. 01/08: Tachycardia persists. Renal function acceptable, lytes require repletion , add K. 01/09: Tolerating CPAP trails with PS 10. BP 220/145. Convert to precedex, attempt to extubated. 01/10: On Precedex and fentanyl infusions to facilitate weaning trials. Remains fluid overloaded. Approximately 15 KG up. Will start Bumex today with IV albumin. 01/11: White count rising, new right lung infiltrate. 01/12: Generalized edema worse. Will proceed with gentle diuresis. CXR with right infiltrate and bilateral pulmonary venous congestion. Objective Vital Signs Date Time Temp Pulse Resp B/P Pulse Ox O2 Delivery O2 Flow Rate FiO2 01/12/17 07:35 93 40 01/12/17 07:00 Mechanical Ventilator 01/12/17 06:00 84 01/12/17 04:00 98.0 15 170/96 Intake and Output 01/11/17 01/11/17 01/12/17 08:00 16:00 00:00 Intake Total 832 ml 975 ml 717 ml Output Total 900 ml 1550 ml 2100 ml Balance -68 ml -575 ml -1383 ml Result Diagram: 01/12/17 0415 01/12/17 0415 Imaging Last Impressions Chest X-Ray 01/07/17 0000 Signed Impressions: Service Date/Time: Saturday, January 07, 2017 01:13 - CONCLUSION: 1. Cardiomegaly. Left lower lobe atelectasis versus pneumonia. 2. Cardiomegaly and findings of vascular congestion without overt failure. There has been no significant change when compared to the prior exam. Aneudy Dennis MD Head Magnetic Resonance Angiography 01/05/17 0000 Signed Impressions: Service Date/Time: Thursday, January 05, 2017 14:37 - CONCLUSION: Normal examination. Esperanza Odell MD Abdomen MRI 01/05/17 0000 Signed Impressions: Service Date/Time: Thursday, January 05, 2017 14:37 - CONCLUSION: The bilateral adrenal masses have developed since the CT abdomen from 01/02/2017 and the most likely etiologies includes bilateral adrenal hemorrhage or possibly reactive hyperplasia. The exact etiology is not certain. Esperanza Odell MD Head CT 01/04/17 0848 Signed Impressions: Service Date/Time: Wednesday, January 04, 2017 08:58 - CONCLUSION: Unremarkable examination for each. Tyler Nagy MD Neck CT 01/04/17 0000 Signed Impressions: Service Date/Time: Wednesday, January 04, 2017 20:49 - CONCLUSION: Questionable thickening of the vocal cords. These can be directly inspected. Otherwise the study appears grossly normal for a noncontrast CT of the neck. Santos Whitley MD Lower Extremity Ultrasound 01/04/17 Signed Impressions: Service Date/Time: Wednesday, January 04, 2017 18:55 - CONCLUSION: Partially occlusive thrombus in the right superficial femoral, popliteal and peroneal veins. No thrombus is seen on the left side. Santos Whitley MD Chest CT 01/04/17 0000 Signed Impressions: Service Date/Time: Wednesday, January 04, 2017 20:50 - CONCLUSION: 1. Mild bilateral pleural effusions with suspected accompanying areas of atelectasis or consolidation at the lung bases. 2. Coronary artery calcifications. Santos Whitley MD Brain MRI 01/04/17 Signed Impressions: Service Date/Time: Wednesday, January 04, 2017 21:19 - CONCLUSION: Atrophy and mild chronic white matter changes. No acute infarct or other acute intracranial abnormality. Santos Arce MD Abdomen/Pelvis CT 01/04/17 0000 Signed Impressions: Service Date/Time: Wednesday, January 04, 2017 10:32 - CONCLUSION: 1. New abnormal bowel gas pattern of concern for distal small bowel obstruction. 2. New bilateral adrenal masses which were not present 2 days ago. The differential includes adrenal hemorrhage and/or hyperplasia. 3. New small pleural effusions right greater than left. 4. Mild diverticulosis. Tyler Nagy MD Last Impressions Head CT 01/04/17 0848 Signed Impressions: Service Date/Time: Wednesday, January 04, 2017 08:58 - CONCLUSION: Unremarkable examination for each. Tyler Nagy MD Chest X-Ray 01/04/17 0000 Signed Impressions: Service Date/Time: Wednesday, January 04, 2017 08:59 - CONCLUSION: No acute disease. There is no evidence of pneumonia. Tyler Nagy MD Abdomen/Pelvis CT 01/04/17 0000 Signed Impressions: Service Date/Time: Wednesday, January 04, 2017 10:32 - CONCLUSION: 1. New abnormal bowel gas pattern of concern for distal small bowel obstruction. 2. New bilateral adrenal masses which were not present 2 days ago. The differential includes adrenal hemorrhage and/or hyperplasia. 3. New small pleural effusions right greater than left. 4. Mild diverticulosis. Tyler Nagy MD Objective Remarks Precedex Fentanyl P/E GENERAL: 76-year-old critically ill appearing male, intubated and sedated. Edematous. SKIN: Warm, flushed, damp. Ecchymotic region to right lower extremity/medial ankle. Chronic venous stasis wound HEAD: Atraumatic. Normocephalic. EYES: Pupils equal and round about 2 mm bilaterally, reactive. ENT: No nasal bleeding or discharge. Mucous membranes pink and moist. NECK: Trachea midline. Orally intubated. CARDIOVASCULAR: S1, S2 normal. No S4. rate 70ss, RESPIRATORY: Mechanical ventilation, now on PSV12/5 trials. Right rhonchi. No wheezes. GASTROINTESTINAL: Abdomen remains distended. No guarding. Nontender. Active bowel sounds are appreciated NG tube to LIS MUSCULOSKELETAL: Bilateral lower extremity edema. NEUROLOGICAL: Moving extremities 4, opens eyes, follows commands. Anxious Date of Insertion: Jan 04, 2017 Date of Insertion: Jan 04, 2017 Side: Left Location: Subclavian A/P Assessment and Plan Neuro/Psych: Acute toxic metabolic encephalopathy History of EtOH Depression/anxiety Currently on Precedex and fentanyl to facilitate ventilator weaning CT head 01/04 reveals no acute intracranial abnormalities Holding bupropion 150 mg by mouth daily, Hold Ultram and Percocet with altered mental status currently Thiamine/folate/multivitamin daily with EtOH use MRI/A brain 01/05- normal exam Monitor for alcohol withdrawal-seizure precautions CV: Fluid overload Right lower extremity DVT Hypertension Start Bumex 1mg IV q12, IV albumin 25 g every 12 hours both for 3 days Weight up by 15 kg As needed hydralazine/labetalol/Nitropaste to maintain systolic blood pressure was 160 Home medication of Lopressor 25 mg BID- on hold Follow up on troponin 0.02.. Will trend 01/05 right lower extremity Dopplers ultrasound for DVT-partially occlusive thrombus right SFA, popliteal and peroneal veins Resp: Acute hypoxic respiratory failure requiring intubation Mechanical ventilation 14/500/0.40/5. On CPAP, but appears fatigued, with agonal appearing breathing-placed back on full vent support Ventilator bundle. Chest x-ray 01/04 reveals no acute cardiopulmonary findings Required intubation 01/05 for labored breathing due to bronchospasm. Bronchospasm corrected 01/09 GI: Small bowel obstruction versus ileus CT abd/pelvis 01/04 revealed right 3.6 x 2.4 cm and left 2.5 x 1.4 cm adrenal masses. Distal esophagus with thickening. Dilated stomach.: Colonic Diverticuli. Compressed colon. Possible bowel obstruction. Dr. Saleh/general surgery consulted-medical management at this time. Tentative plan for possible small bowel follow-through MRI suggested bilateral adrenal hemorrhage Negative ultrasound gallbladder 01/02 Renal: Acute kidney injury Proteinuria Patient states he needed kidney biopsy in past but refused Follow-up a.m. BMP Accurate I's and O's Monitor urine output Follow-up ADH level Endo: Adrenal mass -bilateral possible hemorrhage B/L adrenal hemorrhage See CT abdomen/pelvis results above. Follow-up on adrenal insufficiency workup ADH ordered -results pending Noted hypertensive. Potassium normal. Continue hydrocortisone 50 mg 3 times a day Sliding-scale insulin with Accu-Cheks to maintain euglycemia/low regimen Heme: Leukocytosis Thrombocytosis Chronic Xarelto use Follow CBC name. Monitor trends. 25-> 32-> 28 today, downtrending .01/06 Flagyl added to medication regimen Unknown if infectious etiology. ID consult toDr. Salinas UA negative. Procalcitonin normal ID: Receive 1 dose Rocephin in ED. Previously on Levaquin daily Vancomycin/cefepime/Flagyl. DC Vanc due to worsening renal function Monitor for infection Pertinent cultures 01/04 - blood cultures 2 - negative 01/04 - UA - negative 01/02 - blood cultures 2 - negative FEN: Hyponatremia - hypoosmolar 01/04 Cortisol level equivocal/F/u on cosyntropin test TSH was 1.12. Uric acid 3.0. Lipid panel ordered. 2% NaCl infusion-discontinued Continue 0.9 sodium chloride at 84 cc/hour-DCd now due to fluid overload Continue every 6 hours sodium level monitoring MSK: Right lower extremity wound Wound care evaluation Access - Utilize peripheral IV. Left subclavian 01/04. Radial a line removed 2 in 2 days , secondary to clotting Prophylaxis - GI - Protonix - DVT - SCD/holding Xarelto in light of possible adrenal hemorrhage Overall impression: Remains septic and ventilator dependent. He will require at least 2 additional ICU days. Unable to wean ventilator. Critical Care 36 mins Kingsley Alba MD January 12, 2017 10:53
[2017-01-12] MEDS ORDERED: FUROSEMIDE 40 MG/4 ML VIAL IVP ONE (11:00)
[2017-01-12] MEDS: FUROSEMIDE INJ 100 MG in SODIUM CHLORIDE 0.9% INJ 90 ML IV SCH (12:20)
--- NOTE | 2017-01-12 13:21 | RADRPT ---
EXAM DATE/TIME: 01/12/2017 12:08 [place] COMPARISON: No previous studies available for comparison. INDICATIONS : Right deep vein thrombosis. MEDICAL HISTORY : Deep venous thrombosis. Hypertension. Confusion. Cardiac disorders. Abdominal pain. Small bowel o bstruction. Anticoagulant therapy, Xarelto. SURGICAL HISTORY : Unable to obtain. ENCOUNTER: Subsequent ACUITY: 1 day PAIN SCORE: Non-responsive LOCATION: Right leg. TECHNIQUE: Venous ultrasound of the leg was performed from the inguinal ligament to the proximal calf. Real-narciso e, color Doppler and spectral tracing, compression and augmentation techniques were used. FINDINGS: There is nonocclusive thrombus in the proximal superficial femoral vein which extends into the poplit eal vein. There is occlusive superficial venous thrombosis in the greater saphenous vein. The common femoral vein is patent. CONCLUSION: 1. Deep venous thrombosis which is nonocclusive in the superficial femoral and popliteal veins. 2. Superficial venous thrombosis in the greatest saphenous vein. Tyler Nagy MD on January 12, 2017 at 13:17 Board Certified Radiologist. This report was verified electronically.
--- NOTE | 2017-01-12 17:01 | HHI.PR ---
Subjective Subjective Notes Intubated, sedated, but responds to commands. Objective Vitals/I&O Vital Signs Date Time Temp Pulse Resp B/P Pulse Ox O2 Delivery O2 Flow Rate FiO2 01/12/17 15:26 96 40 01/12/17 14:00 83 01/12/17 12:00 98.9 15 111/62 01/12/17 07:00 Mechanical Ventilator Labs Laboratory Tests Test 01/12/17 04:15 White Blood Count 23.5 Red Blood Count 3.17 Hemoglobin 9.8 Hematocrit 28.8 Mean Corpuscular Volume 90.8 Mean Corpuscular Hemoglobin 31.0 Mean Corpuscular Hemoglobin 34.1 Concent Red Cell Distribution Width 16.7 Platelet Count 174 Mean Platelet Volume 8.7 Neutrophils (%) (Auto) 92.7 Lymphocytes (%) (Auto) 2.0 Monocytes (%) (Auto) 5.1 Eosinophils (%) (Auto) 0.0 Basophils (%) (Auto) 0.2 Neutrophils # (Auto) 21.7 Lymphocytes # (Auto) 0.5 Monocytes # (Auto) 1.2 Eosinophils # (Auto) 0.0 Basophils # (Auto) 0.0 CBC Comment AUTO DIFF Differential Comment AUTO DIFF CONFIRMED Toxic Granulation 1+ Platelet Estimate NORMAL Platelet Morphology Comment NORMAL Sodium Level 141 Potassium Level 3.3 Chloride Level 107 Carbon Dioxide Level 21.4 Anion Gap 13 Blood Urea Nitrogen 58 Creatinine 1.78 Estimat Glomerular Filtration 37 Rate Random Glucose 149 Calcium Level 9.1 Total Bilirubin 1.5 Aspartate Amino Transf 17 (AST/SGOT) Alanine Aminotransferase 21 (ALT/SGPT) Alkaline Phosphatase 99 Total Protein 5.9 Albumin 3.0 Date/Time Procedure Status Source Growth 01/10/17 20:09 Gram Stain - Final Complete Sputum Endotracheal 01/10/17 20:09 Sputum Culture - Final Complete Sputum Endotracheal NO GROWTH IN 48 HOURS. Lungs: Clear Abdomen: Non-tender Narrative Exam NG output only 100ml last 8hrs A/P Assessment and Plan Assessment: 76yo male, multiorgan failure, critically ill. Ileus likely secondary to medical issues. CT yesterday showed no evidence SBO Plan: will continue to follow. continue NG tube. Likely extubation soon. Ok to trickle feed while intubated. Tyler Real MD January 12, 2017 17:01
[2017-01-13] VITALS (19 sets, daily range): BP systolic 102–183; BP diastolic 55–95; PULSE 63–110; RESP 12–49; TEMP 98.6–99.6; O2SAT 95–100
[2017-01-13] MEDS: FUROSEMIDE INJ 100 MG in SODIUM CHLORIDE 0.9% INJ 90 ML IV SCH ×2 (00:52→21:23)
[2017-01-13] MEDS: DEXMEDETOMIDINE INJ 1,000 MCG in SODIUM CHLOR 0.9% 250 ML INJ 240 ML IV SCH ×2 (00:52→07:59)
[2017-01-13] MEDS: hydrALAZINE HCL 20 MG/ML VIAL IV PUSH PRN ×2 (01:10→08:01)
[2017-01-13] MEDS: CHLORHEXIDINE GLUCONATE 2 % 1 PACK (2 CLOTHS) TOP SCH (04:00)
[2017-01-13] MEDS: CEFEPIME INJ 2,000 MG in SODIUM CHLORIDE 0.9% INJ 100 ML IV SCH ×2 (04:39→17:14)
[2017-01-13 04:40] LABS: AUTOMATED NEUTROPHIL # 20.1 TH/MM3 (1.8-7.7); BASOPHIL # 0.1 TH/MM3 (0-0.2); BASOPHIL % 0.3 % (0.0-2.0); HEMATOCRIT 30.6 % (39.0-51.0); HEMO FLAGS DIFF FINAL; LYMPH % 2.4 % (9.0-44.0); LYMPHOCYTE # 0.5 TH/MM3 (1.0-4.8); MEAN CELL VOLUME 90.5 FL (80.0-100.0); MEAN CORPUSCULAR HEMOGLOBIN 30.3 PG (27.0-34.0); MEAN CORPUSCULAR HGB CONC 33.5 % (32.0-36.0); NEUT % 90.3 % (16.0-70.0); PLATELET COUNT 189 TH/MM3 (150-450); RED BLOOD COUNT 3.39 MIL/MM3 (4.50-5.90); RED CELL DISTRIBUTION WIDTH 16.6 % (11.6-17.2); WHITE BLOOD COUNT 22.2 TH/MM3 (4.0-11.0)
[2017-01-13 05:12] LABS: ALKALINE PHOSPHATASE 130 U/L (45-117); ALT (GPT) 23 U/L (12-78); ANION GAP 10 MEQ/L (5-15); AST (GOT) 22 U/L (15-37); BICARBONATE 27.2 MEQ/L (21.0-32.0); BLOOD UREA NITROGEN 63 MG/DL (7-18); CHLORIDE 107 MEQ/L (98-107); GLOMERULAR FILTRATION RATE 35 ML/MIN (>89); MAGNESIUM 2.3 MG/DL (1.5-2.5); SODIUM (NA) 144 MEQ/L (136-145); TOTAL BILIRUBIN ADULT 1.4 MG/DL (0.2-1.0)
[2017-01-13 05:44] LABS: POTASSIUM 2.9 MEQ/L (3.5-5.1)
[2017-01-13] MEDS: HYDROCORTISONE SOD SUCCINATE 100 MG VIAL IV PUSH SCH ×3 (05:49→21:22)
[2017-01-13] MEDS: POTASSIUM CHLOR 40 MEQ PREMIX 100 ML IV PRN ×2 (05:50→09:29)
[2017-01-13] MEDS: metroNIDAZOLE 500 MG INJ 100 ML IV SCH ×3 (05:50→21:22)
[2017-01-13] MEDS: INSULIN NovoLIN REGULAR SUPPLEMENTAL SCALE SQ SCH ×4 (06:54→21:00)
[2017-01-13] MEDS: CHLORHEXIDINE 0.12% (ORAL KIT) 15 ML CUP MT SCH ×2 (07:59→21:22)
[2017-01-13] MEDS: PANTOPRAZOLE SODIUM 40 MG VIAL IV SCH (08:00)
[2017-01-13] MEDS: ARTIFICIAL TEARS OPTH SOLN 15 ML BTL EACH EYE SCH ×3 (08:00→17:14)
[2017-01-13] MEDS: THIAMINE INJ 100 MG in SODIUM CHLORIDE 0.9% INJ 100 ML IV SCH (08:00)
[2017-01-13] MEDS: SODIUM CHLORIDE 0.9% FLUSH 10 ML FLUSH IV FLUSH SCH ×2 (08:00→21:22)
[2017-01-13] MEDS: FOLIC ACID 1 MG TAB PO SCH (08:01)
[2017-01-13] MEDS: MULTIVITAMIN TAB PO SCH (08:01)
[2017-01-13] MEDS: DOCUSATE SODIUM 100 MG CAP PO SCH ×2 (08:01→21:22)
[2017-01-13] MEDS: METOPROLOL TARTRATE 25 MG TAB PO SCH ×2 (08:01→21:00)
--- NOTE | 2017-01-13 08:27 | HHI.CCPN ---
Subjective Remarks/Hospital Course 76-year-old Male. Date of Admission 01/04/2017. 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 This Is 5 x 5 Cm. Covered in Blue Bandage. Patient Presents to [facility] after Being Discharged 01/02 with Altered Mental Status. 01/[address] abdomen pelvis which showed induration of the right kidney possibly past of possible pyelonephritis. UA was negative for infection. 2 cm cyst at the left kidney pole. Sigmoid diverticulosis. Degenerative disc disease lumbar spine. Patient did have a low-sodium 126 at that time.at that time, he was complaining of severe bilateral flank pain. Was associated after eating greasy food at [facility]. Associated with nausea and vomiting Saturday and Saturday prior to admission. He felt better the next morning was sent home on Levaquin. Day, patient was found confused and altered by his roommate this morning. Was transferred to [facility]. CT abdomen and pelvis revealed a right-sided 3.6 x 2.5 cm left 2.5 adrenal mass. Possible hemorrhage. Dilated esophagus with thickening, and dilated stomach, colon diverticula. Possible small bowel obstruction. NG tube was placed with 800cc brown gastric contents removed. /general surgery was consulted and has seen the patient for possible small bowel obstruction. Patient is room air, hypertensive requiring 40 mg labetalol. 01/05: Patient more agitated with fever 102, tachycardia worse, and diffuse wheezing, labored respiratory effort. Na 116. Received 100 ml 3% saline, lasix 40 mg, intubation and ventilation. Head CT and MRI normal aside from atrophy. 01/06: Tmax 98.7. Continued elevation in WBC count. ID consult to Dr. Salinas following, Flagyl was added to medication regime yesterday. The patient was placed on a 2% sodium infusion for hyponatremia. Coagulant studies still pending, no growth from blood cultures will obtain sputum culture today. Patient continues on vasopressor support requiring Phenylephrine. 01/07 Tmax 98.8. The patient went into A. fib RVR last night heart rate 150's, phenylephrine was increased, currently in A. fib rate controlled 90's. Phenylephrine continues to be infused at 60 mcgs. Sodium level 134, 2% sodium infusion discontinued. 01/08: Tachycardia persists. Renal function acceptable, lytes require repletion , add K. 01/09: Tolerating CPAP trails with PS 10. BP 220/145. Convert to precedex, attempt to extubated. 01/10: On Precedex and fentanyl infusions to facilitate weaning trials. Remains fluid overloaded. Approximately 15 KG up. Will start Bumex today with IV albumin. 01/11: White count rising, new right lung infiltrate. 01/12: Generalized edema worse. Will proceed with gentle diuresis. CXR with right infiltrate and bilateral pulmonary venous congestion. 01/13: Tolerating SBT, sats acceptable. Very anxious. Will extubate. Objective Vital Signs Date Time Temp Pulse Resp B/P Pulse Ox O2 Delivery O2 Flow Rate FiO2 01/13/17 07:40 40 01/13/17 07:32 99 01/13/17 06:00 63 01/13/17 04:00 99.6 19 149/82 01/12/17 19:00 Mechanical Ventilator Intake and Output 01/12/17 01/12/17 01/13/17 08:00 16:00 00:00 Intake Total 896 ml 1115 ml 1139 ml Output Total 850 ml 1925 ml 2525 ml Balance 46 ml -810 ml -1386 ml Result Diagram: 01/13/17 0400 01/13/17 0400 Other Results Microbiology Date/Time Procedure Status Source Growth 01/10/17 20:09 Gram Stain - Final Complete Sputum Endotracheal 01/10/17 20:09 Sputum Culture - Final Complete Sputum Endotracheal NO GROWTH IN 48 HOURS. Imaging Last Impressions Chest X-Ray 01/07/17 0000 Signed Impressions: Service Date/Time: Saturday, January 07, 2017 01:13 - CONCLUSION: 1. Cardiomegaly. Left lower lobe atelectasis versus pneumonia. 2. Cardiomegaly and findings of vascular congestion without overt failure. There has been no significant change when compared to the prior exam. Aneudy Dennis MD Head Magnetic Resonance Angiography 01/05/17 0000 Signed Impressions: Service Date/Time: Thursday, January 05, 2017 14:37 - CONCLUSION: Normal examination. KMalena Odell MD Abdomen MRI 01/05/17 0000 Signed Impressions: Service Date/Time: Thursday, January 05, 2017 14:37 - CONCLUSION: The bilateral adrenal masses have developed since the CT abdomen from 01/02/2017 and the most likely etiologies includes bilateral adrenal hemorrhage or possibly reactive hyperplasia. The exact etiology is not certain. Esperanza Odell MD Head CT 01/04/1748 Signed Impressions: Service Date/Time: Wednesday, January 04, 2017 08:58 - CONCLUSION: Unremarkable examination for each. Tyler Nagy MD Neck CT 01/04/17 Signed Impressions: Service Date/Time: Wednesday, January 04, 2017 20:49 - CONCLUSION: Questionable thickening of the vocal cords. These can be directly inspected. Otherwise the study appears grossly normal for a noncontrast CT of the neck. Santos Whitley MD Lower Extremity Ultrasound 01/04/17 Signed Impressions: Service Date/Time: Wednesday, January 04, 2017 18:55 - CONCLUSION: Partially occlusive thrombus in the right superficial femoral, popliteal and peroneal veins. No thrombus is seen on the left side. Santos Whitley MD Chest CT 01/04/17 0000 Signed Impressions: Service Date/Time: Wednesday, January 04, 2017 20:50 - CONCLUSION: 1. Mild bilateral pleural effusions with suspected accompanying areas of atelectasis or consolidation at the lung bases. 2. Coronary artery calcifications. Santos Whitley MD Brain MRI 01/04/17 0000 Signed Impressions: Service Date/Time: Wednesday, January 04, 2017 21:19 - CONCLUSION: Atrophy and mild chronic white matter changes. No acute infarct or other acute intracranial abnormality. Santos Arce MD Abdomen/Pelvis CT 01/04/17 0000 Signed Impressions: Service Date/Time: Wednesday, January 04, 2017 10:32 - CONCLUSION: 1. New abnormal bowel gas pattern of concern for distal small bowel obstruction. 2. New bilateral adrenal masses which were not present 2 days ago. The differential includes adrenal hemorrhage and/or hyperplasia. 3. New small pleural effusions right greater than left. 4. Mild diverticulosis. Tyler Nagy MD Last Impressions Head CT 01/04/1748 Signed Impressions: Service Date/Time: Wednesday, January 04, 2017 08:58 - CONCLUSION: Unremarkable examination for each. Tyler Nagy MD Chest X-Ray 4/28/17 0000 Signed Impressions: Service Date/Time: Wednesday, January 04, 2017 08:59 - CONCLUSION: No acute disease. There is no evidence of pneumonia. Tyler Nagy MD Abdomen/Pelvis CT 01/04/17 0000 Signed Impressions: Service Date/Time: Wednesday, January 04, 2017 10:32 - CONCLUSION: 1. New abnormal bowel gas pattern of concern for distal small bowel obstruction. 2. New bilateral adrenal masses which were not present 2 days ago. The differential includes adrenal hemorrhage and/or hyperplasia. 3. New small pleural effusions right greater than left. 4. Mild diverticulosis. Tyler Nagy MD Objective Remarks P/E GENERAL: 76-year-old critically ill appearing male, intubated and sedated. Edematous. SKIN: Warm, flushed, damp. Chronic venous stasis wound HEAD: Atraumatic. Normocephalic. EYES: Pupils equal and round about 2 mm bilaterally, reactive. ENT: No nasal bleeding or discharge. Mucous membranes pink and moist. NECK: Trachea midline. Orally intubated. CARDIOVASCULAR: S1, S2 normal. No S4. rate 80s, RESPIRATORY: Mechanical ventilation, now on PSV12/5 trials. Right rhonchi. No wheezes. GASTROINTESTINAL: Abdomen remains distended. No guarding. Nontender. Active bowel sounds are appreciated NG tube to LIS MUSCULOSKELETAL: Bilateral lower extremity edema. R>>L NEUROLOGICAL: Moving extremities 4, opens eyes, follows commands. Anxious Date of Insertion: Jan 04, 2017 Date of Insertion: Jan 04, 2017 Side: Left Location: Subclavian A/P Assessment and Plan Neuro/Psych: Acute toxic metabolic encephalopathy History of EtOH Depression/anxiety Currently on Precedex and fentanyl to facilitate ventilator weaning CT head 01/04 reveals no acute intracranial abnormalities Holding bupropion 150 mg by mouth daily, Hold Ultram and Percocet with altered mental status currently Thiamine/folate/multivitamin daily with EtOH use MRI/A brain 01/05- normal exam Monitor for alcohol withdrawal-seizure precautions CV: Fluid overload Right lower extremity DVT Hypertension Start Bumex 1mg IV q12, IV albumin 25 g every 12 hours both for 3 days Weight up by 15 kg As needed hydralazine/labetalol/Nitropaste to maintain systolic blood pressure was 160 Home medication of Lopressor 25 mg BID- on hold Follow up on troponin 0.02.. Will trend 01/05 right lower extremity Dopplers ultrasound for DVT-partially occlusive thrombus right SFA, popliteal and peroneal veins Resp: Acute hypoxic respiratory failure requiring intubation Mechanical ventilation 14/500/0.40/5. On CPAP, but appears fatigued, with agonal appearing breathing-placed back on full vent support Ventilator bundle. Chest x-ray 01/04 reveals no acute cardiopulmonary findings Required intubation 01/05 for labored breathing due to bronchospasm. Bronchospasm corrected 01/09 Extubate GI: Small bowel obstruction versus ileus CT abd/pelvis 01/04 revealed right 3.6 x 2.4 cm and left 2.5 x 1.4 cm adrenal masses. Distal esophagus with thickening. Dilated stomach.: Colonic Diverticuli. Compressed colon. Possible bowel obstruction. Dr. Saleh/general surgery consulted-medical management at this time. Tentative plan for possible small bowel follow-through MRI suggested bilateral adrenal hemorrhage Negative ultrasound gallbladder 01/02 Renal: Acute kidney injury Proteinuria Patient states he needed kidney biopsy in past but refused Follow-up a.m. BMP Accurate I's and O's Monitor urine output Follow-up ADH level Endo: Adrenal mass -bilateral possible hemorrhage B/L adrenal hemorrhage See CT abdomen/pelvis results above. Follow-up on adrenal insufficiency workup ADH ordered -results pending Noted hypertensive. Potassium normal. Continue hydrocortisone 50 mg 3 times a day Sliding-scale insulin with Accu-Cheks to maintain euglycemia/low regimen Heme: Leukocytosis Thrombocytosis Chronic Xarelto use Follow CBC name. Monitor trends. 25-> 32-> 28 today, downtrending .01/06 Flagyl added to medication regimen Unknown if infectious etiology. ID consult toDr. Salinas UA negative. Procalcitonin normal ID: Receive 1 dose Rocephin in ED. Previously on Levaquin daily Vancomycin/cefepime/Flagyl. DC Vanc due to worsening renal function Monitor for infection Pertinent cultures 01/04 - blood cultures 2 - negative 01/04 - UA - negative 01/02 - blood cultures 2 - negative FEN: Hyponatremia - hypoosmolar 01/04 Cortisol level equivocal/F/u on cosyntropin test TSH was 1.12. Uric acid 3.0. Lipid panel ordered. 2% NaCl infusion-discontinued Continue 0.9 sodium chloride at 84 cc/hour-DCd now due to fluid overload Continue every 6 hours sodium level monitoring MSK: Right lower extremity wound Wound care evaluation Access - Utilize peripheral IV. Left subclavian 01/04. Radial a line removed 2 in 2 days , secondary to clotting Prophylaxis - GI - Protonix - DVT - SCD/holding Xarelto in light of possible adrenal hemorrhage Overall impression: Extubate. Aggressive pulmonary toilet. Kingsley Alba MD January 13, 2017 08:27
[2017-01-13] MEDS: fentaNYL DRIP 250 ML IV SCH (09:26)
[2017-01-13] MEDS: RESP: ALBUTEROL 2.5 MG/IPRATROPIUM 0.5 MG NEB (SCH) NEB ×3 (09:37→19:35)
[2017-01-13] MEDS ORDERED: MIDAZOLAM HCL 5 MG/ML VIAL (1 ML) ONE ×2 (12:19)
[2017-01-13] MEDS ORDERED: ROCURONIUM INJ 50 MG/5 ML VIAL ONE (12:19)
[2017-01-13] MEDS: PROPOFOL 1000 MG/100 ML IV SCH ×3 (12:41→21:23)
[2017-01-13] MEDS ORDERED: MIDAZOLAM HCL 10 MG/10 ML VIAL IV ONE (13:15)
[2017-01-13] MEDS ORDERED: ROCURONIUM INJ 100 MG/10 ML VIAL IV ONE (13:15)
[2017-01-13] MEDS: LABETALOL HCL 100 MG/20 ML VIAL IV PUSH PRN ×2 (15:18→18:26)
--- NOTE | 2017-01-13 18:23 | HHI.PR ---
Subjective Subjective Notes pt reintubated this am, altered ms, sedated after intubation Objective Vitals/I&O Vital Signs Date Time Temp Pulse Resp B/P Pulse Ox O2 Delivery O2 Flow Rate FiO2 01/13/17 18:00 109 01/13/17 16:11 97 40 01/13/17 16:00 98.8 15 183/92 01/13/17 08:29 Nasal Cannula 5 Labs Laboratory Tests Test 01/13/17 04:00 White Blood Count 22.2 Red Blood Count 3.39 Hemoglobin 10.3 Hematocrit 30.6 Mean Corpuscular Volume 90.5 Mean Corpuscular Hemoglobin 30.3 Mean Corpuscular Hemoglobin 33.5 Concent Red Cell Distribution Width 16.6 Platelet Count 189 Mean Platelet Volume 8.7 Neutrophils (%) (Auto) 90.3 Lymphocytes (%) (Auto) 2.4 Monocytes (%) (Auto) 7.0 Eosinophils (%) (Auto) 0.0 Basophils (%) (Auto) 0.3 Neutrophils # (Auto) 20.1 Lymphocytes # (Auto) 0.5 Monocytes # (Auto) 1.6 Eosinophils # (Auto) 0.0 Basophils # (Auto) 0.1 CBC Comment DIFF FINAL Differential Comment Sodium Level 144 Potassium Level 2.9 Chloride Level 107 Carbon Dioxide Level 27.2 Anion Gap 10 Blood Urea Nitrogen 63 Creatinine 1.91 Estimat Glomerular Filtration 35 Rate Random Glucose 145 Calcium Level 9.2 Magnesium Level 2.3 Total Bilirubin 1.4 Aspartate Amino Transf 22 (AST/SGOT) Alanine Aminotransferase 23 (ALT/SGPT) Alkaline Phosphatase 130 Total Protein 5.8 Albumin 2.7 Date/Time Procedure Status Source Growth 01/10/17 20:09 Gram Stain - Final Complete Sputum Endotracheal 01/10/17 20:09 Sputum Culture - Final Complete Sputum Endotracheal NO GROWTH IN 48 HOURS. Lungs: Rhonchi Abdomen: Other (soft nd/nd- pt sedated) A/P Assessment and Plan 76yo male, multiorgan failure, critically ill. Ileus likely secondary to medical issues. SBO appears resolved radiologically Pt re-intubated this AM will continue to follow. continue NG tube. vent mgnt per ISC trickle feed tomorrow Hussain Severino MD January 13, 2017 18:23
[2017-01-14] VITALS (19 sets, daily range): BP systolic 108–188; BP diastolic 56–88; PULSE 65–92; RESP 12–14; TEMP 98.2–100; O2SAT 95–100
[2017-01-14] MEDS: PROPOFOL 1000 MG/100 ML IV SCH ×7 (01:22→23:20)
[2017-01-14] MEDS: CEFEPIME INJ 2,000 MG in SODIUM CHLORIDE 0.9% INJ 100 ML IV SCH (03:13)
[2017-01-14] MEDS: CHLORHEXIDINE GLUCONATE 2 % 1 PACK (2 CLOTHS) TOP SCH (03:13)
[2017-01-14 04:10] LABS: BASOPHIL % 0.2 % (0.0-2.0); HEMO FLAGS DIFF FINAL; LYMPH % 2.2 % (9.0-44.0); LYMPHOCYTE # 0.4 TH/MM3 (1.0-4.8); MEAN CELL VOLUME 90.8 FL (80.0-100.0); MEAN CORPUSCULAR HEMOGLOBIN 30.6 PG (27.0-34.0); MEAN CORPUSCULAR HGB CONC 33.6 % (32.0-36.0); MONO % 4.7 % (0.0-8.0); NEUT % 92.9 % (16.0-70.0); PLATELET COUNT 199 TH/MM3 (150-450); RED BLOOD COUNT 2.97 MIL/MM3 (4.50-5.90); RED CELL DISTRIBUTION WIDTH 16.9 % (11.6-17.2); WHITE BLOOD COUNT 17.2 TH/MM3 (4.0-11.0)
[2017-01-14] MEDS: RESP: ALBUTEROL 2.5 MG/IPRATROPIUM 0.5 MG NEB (SCH) NEB ×4 (04:24→20:47)
[2017-01-14 04:39] LABS: BICARBONATE 28.4 MEQ/L (21.0-32.0); POTASSIUM 3.1 MEQ/L (3.5-5.1)
[2017-01-14] MEDS: metroNIDAZOLE 500 MG INJ 100 ML IV SCH ×2 (04:59→13:09)
[2017-01-14] MEDS ORDERED: POTASSIUM CHLORIDE 20 MEQ CONTROLLED RELEASE TAB PO ONE (05:00)
[2017-01-14] MEDS: HYDROCORTISONE SOD SUCCINATE 100 MG VIAL IV PUSH SCH ×3 (05:00→20:36)
[2017-01-14] MEDS: INSULIN NovoLIN REGULAR SUPPLEMENTAL SCALE SQ SCH ×4 (05:40→21:00)
[2017-01-14] MEDS: THIAMINE INJ 100 MG in SODIUM CHLORIDE 0.9% INJ 100 ML IV SCH (07:58)
[2017-01-14] MEDS: FOLIC ACID 1 MG TAB PO SCH (07:59)
[2017-01-14] MEDS: METOPROLOL TARTRATE 25 MG TAB PO SCH ×2 (07:59→20:36)
[2017-01-14] MEDS: PANTOPRAZOLE SODIUM 40 MG VIAL IV SCH (07:59)
[2017-01-14] MEDS: CHLORHEXIDINE 0.12% (ORAL KIT) 15 ML CUP MT SCH ×2 (07:59→20:36)
[2017-01-14] MEDS: MULTIVITAMIN TAB PO SCH (07:59)
[2017-01-14] MEDS: DOCUSATE SODIUM 100 MG CAP PO SCH ×2 (07:59→20:36)
[2017-01-14] MEDS: ARTIFICIAL TEARS OPTH SOLN 15 ML BTL EACH EYE SCH ×3 (08:00→18:00)
[2017-01-14] MEDS: SODIUM CHLORIDE 0.9% FLUSH 10 ML FLUSH IV FLUSH SCH ×2 (08:00→20:36)
[2017-01-14] MEDS: FUROSEMIDE INJ 100 MG in SODIUM CHLORIDE 0.9% INJ 90 ML IV SCH (15:25)
--- NOTE | 2017-01-14 17:08 | HHI.CCPN ---
Subjective Remarks/Hospital Course 76-year-old Male. Date of Admission 01/04/2017. 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 This Is 5 x 5 Cm. Covered in Blue Bandage. Patient Presents to [facility] after Being Discharged 01/02 with Altered Mental Status. 01/[address] abdomen pelvis which showed induration of the right kidney possibly past of possible pyelonephritis. UA was negative for infection. 2 cm cyst at the left kidney pole. Sigmoid diverticulosis. Degenerative disc disease lumbar spine. Patient did have a low-sodium 126 at that time.at that time, he was complaining of severe bilateral flank pain. Was associated after eating greasy food at [facility]. Associated with nausea and vomiting Saturday and Saturday prior to admission. He felt better the next morning was sent home on Levaquin. Day, patient was found confused and altered by his roommate this morning. Was transferred to [facility]. CT abdomen and pelvis revealed a right-sided 3.6 x 2.5 cm left 2.5 adrenal mass. Possible hemorrhage. Dilated esophagus with thickening, and dilated stomach, colon diverticula. Possible small bowel obstruction. NG tube was placed with 800cc brown gastric contents removed. /general surgery was consulted and has seen the patient for possible small bowel obstruction. Patient is room air, hypertensive requiring 40 mg labetalol. 01/05: Patient more agitated with fever 102, tachycardia worse, and diffuse wheezing, labored respiratory effort. Na 116. Received 100 ml 3% saline, lasix 40 mg, intubation and ventilation. Head CT and MRI normal aside from atrophy. 01/06: Tmax 98.7. Continued elevation in WBC count. ID consult to Dr. Salinas following, Flagyl was added to medication regime yesterday. The patient was placed on a 2% sodium infusion for hyponatremia. Coagulant studies still pending, no growth from blood cultures will obtain sputum culture today. Patient continues on vasopressor support requiring Phenylephrine. 01/07 Tmax 98.8. The patient went into A. fib RVR last night heart rate 150's, phenylephrine was increased, currently in A. fib rate controlled 90's. Phenylephrine continues to be infused at 60 mcgs. Sodium level 134, 2% sodium infusion discontinued. 01/08: Tachycardia persists. Renal function acceptable, lytes require repletion , add K. 01/09: Tolerating CPAP trails with PS 10. BP 220/145. Convert to precedex, attempt to extubated. 01/10: On Precedex and fentanyl infusions to facilitate weaning trials. Remains fluid overloaded. Approximately 15 KG up. Will start Bumex today with IV albumin. 01/11: White count rising, new right lung infiltrate. 01/12: Generalized edema worse. Will proceed with gentle diuresis. CXR with right infiltrate and bilateral pulmonary venous congestion. 01/13: Tolerating SBT, sats acceptable. Very anxious. Will extubate. 01/14: Remains intubated sedated. Urine output excellent on Lasix drip, creatinine has increased to 2.3. I will discontinue Lasix drip. We'll resume Precedex to facilitate ventilator weaning. Failed extubation yesterday Objective Vital Signs Date Time Temp Pulse Resp B/P Pulse Ox O2 Delivery O2 Flow Rate FiO2 01/14/17 14:00 68 01/14/17 12:55 100 40 01/14/17 12:00 98.5 12 188/88 01/14/17 07:00 Mechanical Ventilator 01/13/17 08:29 5 Intake and Output 01/13/17 01/13/17 01/14/17 08:00 16:00 00:00 Intake Total 858 ml 815 ml 438 ml Output Total 1550 ml 2300 ml 1150 ml Balance -692 ml -1485 ml -712 ml Result Diagram: 01/14/17 0320 01/14/17 0320 Imaging Last Impressions Chest X-Ray 01/07/17 0000 Signed Impressions: Service Date/Time: Saturday, January 07, 2017 01:13 - CONCLUSION: 1. Cardiomegaly. Left lower lobe atelectasis versus pneumonia. 2. Cardiomegaly and findings of vascular congestion without overt failure. There has been no significant change when compared to the prior exam. Aneudy Dennis MD Head Magnetic Resonance Angiography 01/05/17 0000 Signed Impressions: Service Date/Time: Thursday, January 05, 2017 14:37 - CONCLUSION: Normal examination. Esperanza Odell MD Abdomen MRI 01/05/17 0000 Signed Impressions: Service Date/Time: Thursday, January 05, 2017 14:37 - CONCLUSION: The bilateral adrenal masses have developed since the CT abdomen from 01/02/2017 and the most likely etiologies includes bilateral adrenal hemorrhage or possibly reactive hyperplasia. The exact etiology is not certain. Esperanza Odell MD Head CT 01/04/1748 Signed Impressions: Service Date/Time: Wednesday, January 04, 2017 08:58 - CONCLUSION: Unremarkable examination for each. Tyler Nagy MD Neck CT 01/04/17 0000 Signed Impressions: Service Date/Time: Wednesday, January 04, 2017 20:49 - CONCLUSION: Questionable thickening of the vocal cords. These can be directly inspected. Otherwise the study appears grossly normal for a noncontrast CT of the neck. Santos Whitley MD Lower Extremity Ultrasound 01/04/17 0000 Signed Impressions: Service Date/Time: Wednesday, January 04, 2017 18:55 - CONCLUSION: Partially occlusive thrombus in the right superficial femoral, popliteal and peroneal veins. No thrombus is seen on the left side. Santos Whitley MD Chest CT 01/04/17 0000 Signed Impressions: Service Date/Time: Wednesday, January 04, 2017 20:50 - CONCLUSION: 1. Mild bilateral pleural effusions with suspected accompanying areas of atelectasis or consolidation at the lung bases. 2. Coronary artery calcifications. Santos Whitley MD Brain MRI 01/04/17 0000 Signed Impressions: Service Date/Time: Wednesday, January 04, 2017 21:19 - CONCLUSION: Atrophy and mild chronic white matter changes. No acute infarct or other acute intracranial abnormality. Santos Arce MD Abdomen/Pelvis CT 01/04/17 0000 Signed Impressions: Service Date/Time: Wednesday, January 04, 2017 10:32 - CONCLUSION: 1. New abnormal bowel gas pattern of concern for distal small bowel obstruction. 2. New bilateral adrenal masses which were not present 2 days ago. The differential includes adrenal hemorrhage and/or hyperplasia. 3. New small pleural effusions right greater than left. 4. Mild diverticulosis. Tyler Nagy MD Last Impressions Head CT 01/04/1748 Signed Impressions: Service Date/Time: Wednesday, January 04, 2017 08:58 - CONCLUSION: Unremarkable examination for each. Tyler Nagy MD Chest X-Ray 01/04/17 0000 Signed Impressions: Service Date/Time: Wednesday, January 04, 2017 08:59 - CONCLUSION: No acute disease. There is no evidence of pneumonia. Tyler Nagy MD Abdomen/Pelvis CT 01/04/17 0000 Signed Impressions: Service Date/Time: Wednesday, January 04, 2017 10:32 - CONCLUSION: 1. New abnormal bowel gas pattern of concern for distal small bowel obstruction. 2. New bilateral adrenal masses which were not present 2 days ago. The differential includes adrenal hemorrhage and/or hyperplasia. 3. New small pleural effusions right greater than left. 4. Mild diverticulosis. Tyler Nagy MD Objective Remarks P/E GENERAL: 76-year-old critically ill appearing male, intubated and sedated. Edematous. SKIN: Warm, flushed, damp. Chronic venous stasis wound HEAD: Atraumatic. Normocephalic. EYES: Pupils equal and round about 2 mm bilaterally, reactive. ENT: No nasal bleeding or discharge. Mucous membranes pink and moist. NECK: Trachea midline. Orally intubated. CARDIOVASCULAR: S1, S2 normal. No S4. rate 80s, RESPIRATORY: Mechanical ventilation, now on PRVC. Right rhonchi. No wheezes. GASTROINTESTINAL: Abdomen remains distended. No guarding. Nontender. Active bowel sounds are appreciated NG tube to LIS MUSCULOSKELETAL: Bilateral lower extremity edema. R>>L NEUROLOGICAL: Moving extremities 4, opens eyes, follows commands. Anxious Date of Insertion: Jan 04, 2017 Date of Insertion: Jan 04, 2017 Side: Left Location: Subclavian A/P Assessment and Plan Neuro/Psych: Acute toxic metabolic encephalopathy History of EtOH Depression/anxiety Currently on Propofol and fentanyl. add Precedex to facilitate ventilator weaning CT head 01/04 reveals no acute intracranial abnormalities Holding bupropion 150 mg by mouth daily, Hold Ultram and Percocet with altered mental status currently Thiamine/folate/multivitamin daily with EtOH use MRI/A brain 01/05- normal exam Monitor for alcohol withdrawal-seizure precautions CV: Fluid overload Right lower extremity DVT Hypertension On Lasix gtt. DC 01/14 due to increasing creat. As needed hydralazine/labetalol/Nitropaste to maintain systolic blood pressure was 160 Home medication of Lopressor 25 mg BID- on hold 01/05 right lower extremity Dopplers ultrasound for DVT-partially occlusive thrombus right SFA, popliteal and peroneal veins Resp: Acute hypoxic respiratory failure requiring intubation Mechanical ventilation 14/500/0.40/5. Ventilator bundle. Chest x-ray 01/04 reveals no acute cardiopulmonary findings Required intubation 01/05 for labored breathing due to bronchospasm. Bronchospasm corrected 01/09 Extubated 01/13 but had to be reintubated Daily SBT, may need trach due to NM weakness GI: Small bowel obstruction versus ileus CT abd/pelvis 01/04 revealed right 3.6 x 2.4 cm and left 2.5 x 1.4 cm adrenal masses. Distal esophagus with thickening. Dilated stomach.: Colonic Diverticuli. Compressed colon. Possible bowel obstruction. Dr. Saleh/general surgery consulted-medical management at this time. Tentative plan for possible small bowel follow-through MRI suggested bilateral adrenal hemorrhage Negative ultrasound gallbladder 01/02 Renal: Acute kidney injury Proteinuria Patient states he needed kidney biopsy in past but refused Follow-up a.m. BMP Accurate I's and O's Monitor urine output Follow-up ADH level Endo: Adrenal mass -bilateral possible hemorrhage B/L adrenal hemorrhage See CT abdomen/pelvis results above. Follow-up on adrenal insufficiency workup ADH ordered -results pending Noted hypertensive. Potassium normal. Continue hydrocortisone 50 mg 3 times a day, consider wean to PO Sliding-scale insulin with Accu-Cheks to maintain euglycemia/low regimen Heme: Leukocytosis Thrombocytosis Chronic Xarelto use Follow CBC name. Monitor trends. 25-> 32-> 28 today, downtrending. 01/06 Flagyl added to medication regimen Unknown if infectious etiology. ID consult toDr. Salinas UA negative. Procalcitonin normal ID: ABX per ID Monitor for infection Pertinent cultures 01/04 - blood cultures 2 - negative 01/04 - UA - negative 01/02 - blood cultures 2 - negative FEN: Hyponatremia - hypoosmolar 01/04 Cortisol level equivocal/F/u on cosyntropin test TSH was 1.12. Uric acid 3.0. Lipid panel ordered. 2% NaCl infusion-discontinued Continue 0.9 sodium chloride at 84 cc/hour-DCd now due to fluid overload Continue every 6 hours sodium level monitoring MSK: Right lower extremity wound Wound care evaluation Access - Utilize peripheral IV. Left subclavian 01/04. Radial a line removed 2 in 2 days , secondary to clotting Prophylaxis - GI - Protonix - DVT - SCD/holding Xarelto in light of possible adrenal hemorrhage Overall impression: Remains critically ill. Failed extubation 01/13/17. May need trach if continues to fail Celina Graham MD January 14, 2017 17:08
--- NOTE | 2017-01-14 17:32 | HHI.PR ---
Subjective Subjective Notes Intubated/Sedated Objective Vitals/I&O Vital Signs Date Time Temp Pulse Resp B/P Pulse Ox O2 Delivery O2 Flow Rate FiO2 01/14/17 17:24 99 40 01/14/17 14:00 68 01/14/17 12:00 98.5 12 188/88 01/14/17 07:00 Mechanical Ventilator 01/13/17 08:29 5 Labs Laboratory Tests Test 01/14/17 03:20 White Blood Count 17.2 Red Blood Count 2.97 Hemoglobin 9.1 Hematocrit 27.0 Mean Corpuscular Volume 90.8 Mean Corpuscular Hemoglobin 30.6 Mean Corpuscular Hemoglobin 33.6 Concent Red Cell Distribution Width 16.9 Platelet Count 199 Mean Platelet Volume 8.8 Neutrophils (%) (Auto) 92.9 Lymphocytes (%) (Auto) 2.2 Monocytes (%) (Auto) 4.7 Eosinophils (%) (Auto) 0.0 Basophils (%) (Auto) 0.2 Neutrophils # (Auto) 16.0 Lymphocytes # (Auto) 0.4 Monocytes # (Auto) 0.8 Eosinophils # (Auto) 0.0 Basophils # (Auto) 0.0 CBC Comment DIFF FINAL Differential Comment Sodium Level 147 Potassium Level 3.1 Chloride Level 107 Carbon Dioxide Level 28.4 Anion Gap 12 Blood Urea Nitrogen 70 Creatinine 2.32 Estimat Glomerular Filtration 28 Rate Random Glucose 164 Calcium Level 8.2 Date/Time Procedure Status Source Growth 01/10/17 20:09 Gram Stain - Final Complete Sputum Endotracheal 01/10/17 20:09 Sputum Culture - Final Complete Sputum Endotracheal NO GROWTH IN 48 HOURS. Cardiovascular: Regular Lungs: Clear Abdomen: Non-distended, Non-tender Extremities: Other (generalized edema ) A/P Assessment and Plan 76 year old male, MOSF; likely ileus secondary to medical conditions -Vent per [facility] -Abdominal exam improved from last week -will continue to follow. -Okay to start trickle feeds and advance as tolerated Attending Statement The exam, history, and the medical decision-making described in the above note were completed with the assistance of the mid-level provider. I reviewed and agree with the findings presented. I attest that I had a [id number] encounter with the patient on the same day, and personally performed and documented my assessment and findings in the medical record. Abdominal exam stable, less distended, ok to start tube feeds Nancy Benson January 14, 2017 17:32 Bharat Saleh MD February 05, 2017 16:12
--- NOTE | 2017-01-14 18:14 | HHI.IDPN ---
Subjective Subjective Remarks pt was extubated and shortly after re-intubated He is afebrile though had one time low grade fever over 24 hrs He is still NPO No BM since admission Antibiotics flagyl cefepime Allergies: Coded Allergies: No Known Allergies (Unverified , 01/02/17) Objective . Vital Signs Date Time Temp Pulse Resp B/P Pulse Ox O2 Delivery O2 Flow Rate FiO2 01/14/17 17:24 99 40 01/14/17 14:00 68 01/14/17 12:55 100 40 01/14/17 12:00 90 01/14/17 12:00 98.5 90 12 188/88 100 01/14/17 10:10 40 01/14/17 10:06 95 40 01/14/17 10:00 72 01/14/17 08:00 79 01/14/17 08:00 98.5 74 12 111/57 100 01/14/17 07:00 99 Mechanical Ventilator 40 01/14/17 06:00 72 01/14/17 04:25 100 40 01/14/17 04:00 73 01/14/17 04:00 98.9 73 12 113/56 100 01/14/17 02:00 79 01/14/17 00:50 98 40 01/14/17 00:00 82 01/14/17 00:00 100.0 83 12 113/58 99 01/13/17 22:00 87 01/13/17 20:00 86 01/13/17 20:00 98.8 87 12 102/55 98 01/13/17 19:36 98 40 01/13/17 19:00 98 Mechanical Ventilator 40 01/13/17 01/13/17 01/14/17 15:00 23:00 07:00 Intake Total 815 ml 438 ml 523 ml Output Total 2300 ml 1150 ml 1200 ml Balance -1485 ml -712 ml -677 ml Intake Oral 0 ml 0 ml 0 ml IV Total 815 ml 438 ml 523 ml Output Urine Total 2300 ml 1150 ml 1200 ml # Bowel Movements 0 0 0 . Laboratory Tests Test 01/13/17 01/14/17 04:00 03:20 White Blood Count 22.2 TH/MM3 17.2 TH/MM3 Red Blood Count 3.39 MIL/MM3 2.97 MIL/MM3 Hemoglobin 10.3 GM/DL 9.1 GM/DL Hematocrit 30.6 % 27.0 % Mean Corpuscular Volume 90.5 FL 90.8 FL Mean Corpuscular Hemoglobin 30.3 PG 30.6 PG Mean Corpuscular Hemoglobin 33.5 % 33.6 % Concent Red Cell Distribution Width 16.6 % 16.9 % Platelet Count 189 TH/MM3 199 TH/MM3 Mean Platelet Volume 8.7 FL 8.8 FL Neutrophils (%) (Auto) 90.3 % 92.9 % Lymphocytes (%) (Auto) 2.4 % 2.2 % Monocytes (%) (Auto) 7.0 % 4.7 % Eosinophils (%) (Auto) 0.0 % 0.0 % Basophils (%) (Auto) 0.3 % 0.2 % Neutrophils # (Auto) 20.1 TH/MM3 16.0 TH/MM3 Lymphocytes # (Auto) 0.5 TH/MM3 0.4 TH/MM3 Monocytes # (Auto) 1.6 TH/MM3 0.8 TH/MM3 Eosinophils # (Auto) 0.0 TH/MM3 0.0 TH/MM3 Basophils # (Auto) 0.1 TH/MM3 0.0 TH/MM3 CBC Comment DIFF FINAL DIFF FINAL Differential Comment Laboratory Tests Test 01/13/17 01/14/17 04:00 03:20 Sodium Level 144 MEQ/L 147 MEQ/L Potassium Level 2.9 MEQ/L 3.1 MEQ/L Chloride Level 107 MEQ/L 107 MEQ/L Carbon Dioxide Level 27.2 MEQ/L 28.4 MEQ/L Anion Gap 10 MEQ/L 12 MEQ/L Blood Urea Nitrogen 63 MG/DL 70 MG/DL Creatinine 1.91 MG/DL 2.32 MG/DL Estimat Glomerular Filtration 35 ML/MIN 28 ML/MIN Rate Random Glucose 145 MG/DL 164 MG/DL Calcium Level 9.2 MG/DL 8.2 MG/DL Magnesium Level 2.3 MG/DL Total Bilirubin 1.4 MG/DL Aspartate Amino Transf 22 U/L (AST/SGOT) Alanine Aminotransferase 23 U/L (ALT/SGPT) Alkaline Phosphatase 130 U/L Total Protein 5.8 GM/DL Albumin 2.7 GM/DL Imaging Last Impressions Chest X-Ray 01/12/17 0400 Signed Impressions: Service Date/Time: Thursday, January 12, 2017 04:16 - CONCLUSION: 1. Stable right perihilar airspace disease. 2. Increasing airspace disease in the right upper lobe with patchy densities remaining in the left perihilar and left lower lobe. Dk Benedict MD Lower Extremity Ultrasound 01/12/17 Signed Impressions: Service Date/Time: Thursday, January 12, 2017 12:08 - CONCLUSION: 1. Deep venous thrombosis which is nonocclusive in the superficial femoral and popliteal veins. 2. Superficial venous thrombosis in the greatest saphenous vein. Tyler Nagy MD Abdomen/Pelvis CT 01/11/17 Signed Impressions: Service Date/Time: Wednesday, January 11, 2017 20:00 - CONCLUSION: 1. Subacute hemorrhage of both adrenal glands, not significantly changed on the left, smaller on the right. 2. Increased/new pleural fluid at both bases, new, small ascites, new body wall edema/anasarca. 3. No evidence of bowel obstruction. Nasogastric tube coiled in the stomach. 4. Patchy airspace consolidation of the right lung base, new. Santos Arce MD Head Magnetic Resonance Angiography 01/05/17 Signed Impressions: Service Date/Time: Thursday, January 05, 2017 14:37 - CONCLUSION: Normal examination. Esperanza Odell MD Abdomen MRI 01/05/17 Signed Impressions: Service Date/Time: Thursday, January 05, 2017 14:37 - CONCLUSION: The bilateral adrenal masses have developed since the CT abdomen from 01/02/2017 and the most likely etiologies includes bilateral adrenal hemorrhage or possibly reactive hyperplasia. The exact etiology is not certain. Esperanza Odell MD Head CT 01/04/17 0848 Signed Impressions: Service Date/Time: Wednesday, January 04, 2017 08:58 - CONCLUSION: Unremarkable examination for each. Tyler Nagy MD Neck CT 01/04/17 Signed Impressions: Service Date/Time: Wednesday, January 04, 2017 20:49 - CONCLUSION: Questionable thickening of the vocal cords. These can be directly inspected. Otherwise the study appears grossly normal for a noncontrast CT of the neck. Santos Whitley MD Chest CT 01/04/17 Signed Impressions: Service Date/Time: Wednesday, January 04, 2017 20:50 - CONCLUSION: 1. Mild bilateral pleural effusions with suspected accompanying areas of atelectasis or consolidation at the lung bases. 2. Coronary artery calcifications. Santos Whitley MD Brain MRI 01/04/17 0000 Signed Impressions: Service Date/Time: Wednesday, January 04, 2017 21:19 - CONCLUSION: Atrophy and mild chronic white matter changes. No acute infarct or other acute intracranial abnormality. Santos Arce MD Physical Exam CONSTITUTIONAL/GENERAL: This is an adequately nourished patient, sedated intubated on [facility] vent TUBES/LINES/DRAINS: SKIN: No jaundice, rashes, or lesions.Vitiligo involving hands, feet primarily Anansarca HEAD: Atraumatic. Normocephalic. EYES: Pupils equal and round and reactive. Extraocular motions intact. No scleral icterus. No injection or drainage. Fundi not examined. ENT: NG tube to suction with clear yellowish d/c CARDIOVASCULAR: Regular rate and rhythm without murmurs, gallops, or rubs. No JVD. Peripheral pulses symmetric. RESPIRATORY/CHEST: Symmetric, unlabored respirations. Rhonchi to auscultation. Breath sounds equal bilaterally. No wheezes, rales, or rhonchi. GASTROINTESTINAL: Abdomen soft, no reaction to palpation, milldy distended. no tympany to palpation Very hypoactive bowel sounds. GENITOURINARY: Without palpable bladder distension. Parada catheter in place with clear yellow urine MUSCULOSKELETAL: Extremities without clubbing, cyanosis, less prominent edema. Extremeties perfused . No calf tenderness. No mottling or clubbing. NEUROLOGICAL: sedated; unresponsive calm PSYCHIATRIC: not possible to assess Assessment & Plan Remarks Assessment and Plan Sepsis - source is likley intra- abdominal: small bowel obstruction vs ileus - transition zone present - distal esophagus thickening ? significance repeat CT a/p wo acute pathology Acute VDRF - leukocytosis, leukemoid reaction - improving - TIBURCIO ? vnco contributing ? new right lower lobe pneumonia - clx is no growth REC's: - dc cefepime, flagyl - monitor clinically dw RN Ilana Orozco Dr, MD January 14, 2017 18:14
[2017-01-15] VITALS (15 sets, daily range): BP systolic 105–196; BP diastolic 56–99; PULSE 60–96; RESP 12–14; TEMP 97.9–99.4; O2SAT 96–100
[2017-01-15] MEDS: PROPOFOL 1000 MG/100 ML IV SCH ×4 (02:24→12:26)
[2017-01-15] MEDS: RESP: ALBUTEROL 2.5 MG/IPRATROPIUM 0.5 MG NEB (SCH) NEB ×4 (04:18→22:09)
[2017-01-15] MEDS: CHLORHEXIDINE GLUCONATE 2 % 1 PACK (2 CLOTHS) TOP SCH (04:56)
[2017-01-15] MEDS: HYDROCORTISONE SOD SUCCINATE 100 MG VIAL IV PUSH SCH ×3 (05:11→20:16)
[2017-01-15 05:36] LABS: AUTOMATED NEUTROPHIL # 15.8 TH/MM3 (1.8-7.7); BASOPHIL # 0.1 TH/MM3 (0-0.2); BASOPHIL % 0.3 % (0.0-2.0); EOSINOPHIL % 0.1 % (0.0-4.0); HEMATOCRIT 28.9 % (39.0-51.0); HEMO FLAGS DIFF FINAL; LYMPH % 4.8 % (9.0-44.0); LYMPHOCYTE # 0.8 TH/MM3 (1.0-4.8); MEAN CELL VOLUME 90.7 FL (80.0-100.0); MEAN CORPUSCULAR HEMOGLOBIN 30.4 PG (27.0-34.0); MEAN CORPUSCULAR HGB CONC 33.5 % (32.0-36.0); MONO % 4.9 % (0.0-8.0); NEUT % 89.9 % (16.0-70.0); PLATELET COUNT 245 TH/MM3 (150-450); RED BLOOD COUNT 3.18 MIL/MM3 (4.50-5.90); RED CELL DISTRIBUTION WIDTH 16.9 % (11.6-17.2); WHITE BLOOD COUNT 17.5 TH/MM3 (4.0-11.0)
[2017-01-15] MEDS: INSULIN NovoLIN REGULAR SUPPLEMENTAL SCALE SQ SCH ×4 (05:42→20:04)
[2017-01-15] MEDS: fentaNYL DRIP 250 ML IV SCH (05:45)
[2017-01-15 06:12] LABS: ALKALINE PHOSPHATASE 137 U/L (45-117); ALT (GPT) 23 U/L (12-78); ANION GAP 9 MEQ/L (5-15); AST (GOT) 25 U/L (15-37); BICARBONATE 29.6 MEQ/L (21.0-32.0); BLOOD UREA NITROGEN 79 MG/DL (7-18); CHLORIDE 109 MEQ/L (98-107); GLOMERULAR FILTRATION RATE 26 ML/MIN (>89); SODIUM (NA) 148 MEQ/L (136-145); TOTAL BILIRUBIN ADULT 0.9 MG/DL (0.2-1.0)
[2017-01-15 06:26] LABS: POTASSIUM 2.7 MEQ/L (3.5-5.1)
[2017-01-15] MEDS: POTASSIUM CHLOR 40 MEQ PREMIX 100 ML IV PRN ×2 (06:37→06:38)
[2017-01-15] MEDS: POTASSIUM CHLOR 40 MEQ PREMIX 100 ML IV SCH ×2 (07:00→11:00)
[2017-01-15] MEDS: CHLORHEXIDINE 0.12% (ORAL KIT) 15 ML CUP MT SCH ×2 (08:00→20:00)
[2017-01-15] MEDS: MULTIVITAMIN TAB PO SCH (08:14)
[2017-01-15] MEDS: METOPROLOL TARTRATE 25 MG TAB PO SCH ×2 (08:14→20:16)
[2017-01-15] MEDS: FOLIC ACID 1 MG TAB PO SCH (08:14)
[2017-01-15] MEDS: PANTOPRAZOLE SODIUM 40 MG VIAL IV SCH (08:14)
[2017-01-15] MEDS: DOCUSATE SODIUM 100 MG CAP PO SCH ×2 (08:14→20:16)
[2017-01-15] MEDS: THIAMINE INJ 100 MG in SODIUM CHLORIDE 0.9% INJ 100 ML IV SCH (08:15)
[2017-01-15] MEDS: ARTIFICIAL TEARS OPTH SOLN 15 ML BTL EACH EYE SCH ×3 (08:15→18:00)
[2017-01-15] MEDS: SODIUM CHLORIDE 0.9% FLUSH 10 ML FLUSH IV FLUSH SCH ×2 (09:00→20:16)
[2017-01-15] MEDS: hydrALAZINE HCL 20 MG/ML VIAL IV PUSH PRN ×3 (13:15→23:08)
[2017-01-15] MEDS: LABETALOL HCL 100 MG/20 ML VIAL IV PUSH PRN ×3 (13:32→18:20)
--- NOTE | 2017-01-15 14:12 | HHI.PR ---
Subjective Subjective Notes Intubated/Sedated ANANT Zepeda at bedside Objective Vitals/I&O Vital Signs Date Time Temp Pulse Resp B/P Pulse Ox O2 Delivery O2 Flow Rate FiO2 01/15/17 12:41 40 01/15/17 12:40 100 01/15/17 12:00 98.5 69 12 126/68 01/14/17 19:00 Mechanical Ventilator 01/13/17 08:29 5 Labs Laboratory Tests Test 01/15/17 05:15 White Blood Count 17.5 Red Blood Count 3.18 Hemoglobin 9.7 Hematocrit 28.9 Mean Corpuscular Volume 90.7 Mean Corpuscular Hemoglobin 30.4 Mean Corpuscular Hemoglobin 33.5 Concent Red Cell Distribution Width 16.9 Platelet Count 245 Mean Platelet Volume 8.7 Neutrophils (%) (Auto) 89.9 Lymphocytes (%) (Auto) 4.8 Monocytes (%) (Auto) 4.9 Eosinophils (%) (Auto) 0.1 Basophils (%) (Auto) 0.3 Neutrophils # (Auto) 15.8 Lymphocytes # (Auto) 0.8 Monocytes # (Auto) 0.9 Eosinophils # (Auto) 0.0 Basophils # (Auto) 0.1 CBC Comment DIFF FINAL Differential Comment Sodium Level 148 Potassium Level 2.7 Chloride Level 109 Carbon Dioxide Level 29.6 Anion Gap 9 Blood Urea Nitrogen 79 Creatinine 2.46 Estimat Glomerular Filtration 26 Rate Random Glucose 142 Calcium Level 8.8 Total Bilirubin 0.9 Aspartate Amino Transf 25 (AST/SGOT) Alanine Aminotransferase 23 (ALT/SGPT) Alkaline Phosphatase 137 Total Protein 5.1 Albumin 2.2 Date/Time Procedure Status Source Growth 01/10/17 20:09 Gram Stain - Final Complete Sputum Endotracheal 01/10/17 20:09 Sputum Culture - Final Complete Sputum Endotracheal NO GROWTH IN 48 HOURS. Cardiovascular: Regular Lungs: Clear Abdomen: Other (soft; non tender ) Extremities: Other (generalized edema ) A/P Assessment and Plan 76 year old male, MOSF; likely ileus secondary to medical conditions -Vent per [facility] -Abdominal exam improved from last week -Start trickle feed -Suppository -will continue to follow. Attending Statement The exam, history, and the medical decision-making described in the above note were completed with the assistance of the mid-level provider. I reviewed and agree with the findings presented. I attest that I had a [id number] encounter with the patient on the same day, and personally performed and documented my assessment and findings in the medical record. Abdominal exam stable, continue enteric nutrition as tolerated Nancy Benson January 15, 2017 14:12 Bharat Saleh MD February 05, 2017 16:16
[2017-01-15] MEDS ORDERED: BISACODYL 10 MG SUPP RECTAL ONE (14:15)
[2017-01-15 15:03] LABS: BLOOD GAS BASE EXCESS 4.5 mmol/L (-2-2); BLOOD GAS CARBOXYHEMOGLOBIN 1.4 % (0-4); BLOOD GAS HCO3 28 mmol/L (22-26); BLOOD GAS O2 HGB SATURATION 90 % (90-100); BLOOD GAS OXYGEN CONTENT 14.3 Vol % (12.0-20.0); BLOOD GAS PCO2 38 mmHg (38-42); BLOOD GAS PO2 57 mmHg (61-120); BLOOD GAS TOTAL HGB 11.3 G/DL (12.0-16.0); CRITICAL VALUE YES; DRAW SITE RT RADIAL; FIO2 40 %; NUMBER OF ARTERIAL PUNCTURES 1; OXYGEN DEVICE VENTILATOR; STAT NO; TEMP CORR TO 98.6; ULNAR PULSE PRESENT; VENT SETTINGS CPAP/PEEP5/PS5
--- NOTE | 2017-01-15 15:17 | HHI.CCPN ---
Subjective Remarks/Hospital Course 76-year-old Male. Date of Admission 01/04/2017. 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 This Is 5 x 5 Cm. Covered in Blue Bandage. Patient Presents to [facility] after Being Discharged 01/02 with Altered Mental Status. 01/[address] abdomen pelvis which showed induration of the right kidney possibly past of possible pyelonephritis. UA was negative for infection. 2 cm cyst at the left kidney pole. Sigmoid diverticulosis. Degenerative disc disease lumbar spine. Patient did have a low-sodium 126 at that time.at that time, he was complaining of severe bilateral flank pain. Was associated after eating greasy food at [facility]. Associated with nausea and vomiting Saturday and Saturday prior to admission. He felt better the next morning was sent home on Levaquin. Day, patient was found confused and altered by his roommate this morning. Was transferred to [facility]. CT abdomen and pelvis revealed a right-sided 3.6 x 2.5 cm left 2.5 adrenal mass. Possible hemorrhage. Dilated esophagus with thickening, and dilated stomach, colon diverticula. Possible small bowel obstruction. NG tube was placed with 800cc brown gastric contents removed. /general surgery was consulted and has seen the patient for possible small bowel obstruction. Patient is room air, hypertensive requiring 40 mg labetalol. 01/05: Patient more agitated with fever 102, tachycardia worse, and diffuse wheezing, labored respiratory effort. Na 116. Received 100 ml 3% saline, lasix 40 mg, intubation and ventilation. Head CT and MRI normal aside from atrophy. 01/06: Tmax 98.7. Continued elevation in WBC count. ID consult to Dr. Salinas following, Flagyl was added to medication regime yesterday. The patient was placed on a 2% sodium infusion for hyponatremia. Coagulant studies still pending, no growth from blood cultures will obtain sputum culture today. Patient continues on vasopressor support requiring Phenylephrine. 01/07 Tmax 98.8. The patient went into A. fib RVR last night heart rate 150's, phenylephrine was increased, currently in A. fib rate controlled 90's. Phenylephrine continues to be infused at 60 mcgs. Sodium level 134, 2% sodium infusion discontinued. 01/08: Tachycardia persists. Renal function acceptable, lytes require repletion , add K. 01/09: Tolerating CPAP trails with PS 10. BP 220/145. Convert to precedex, attempt to extubated. 01/10: On Precedex and fentanyl infusions to facilitate weaning trials. Remains fluid overloaded. Approximately 15 KG up. Will start Bumex today with IV albumin. 01/11: White count rising, new right lung infiltrate. 01/12: Generalized edema worse. Will proceed with gentle diuresis. CXR with right infiltrate and bilateral pulmonary venous congestion. 01/13: Tolerating SBT, sats acceptable. Very anxious. Will extubate. 01/14: Remains intubated sedated. Urine output excellent on Lasix drip, creatinine has increased to 2.3. I will discontinue Lasix drip. We'll resume Precedex to facilitate ventilator weaning. Failed extubation yesterday 01/15: Intubated off sedation, tolerating CPAP. Creat 2.4 slightly increased. UO 2.3 L in 24 hours Objective Vital Signs Date Time Temp Pulse Resp B/P Pulse Ox O2 Delivery O2 Flow Rate FiO2 01/15/17 12:41 40 01/15/17 12:40 100 01/15/17 12:00 98.5 69 12 126/68 01/14/17 19:00 Mechanical Ventilator 01/13/17 08:29 5 Intake and Output 01/14/17 01/14/17 01/15/17 08:00 16:00 00:00 Intake Total 523 ml 807 ml 187 ml Output Total 1200 ml 1250 ml 700 ml Balance -677 ml -443 ml -513 ml Result Diagram: 01/15/17 0515 01/15/17 0515 Imaging Last Impressions Chest X-Ray 01/07/17 0000 Signed Impressions: Service Date/Time: Saturday, January 07, 2017 01:13 - CONCLUSION: 1. Cardiomegaly. Left lower lobe atelectasis versus pneumonia. 2. Cardiomegaly and findings of vascular congestion without overt failure. There has been no significant change when compared to the prior exam. Aneudy Dennis MD Head Magnetic Resonance Angiography 01/05/17 0000 Signed Impressions: Service Date/Time: Thursday, January 05, 2017 14:37 - CONCLUSION: Normal examination. Esperanza Odell MD Abdomen MRI 01/05/17 0000 Signed Impressions: Service Date/Time: Thursday, January 05, 2017 14:37 - CONCLUSION: The bilateral adrenal masses have developed since the CT abdomen from 01/02/2017 and the most likely etiologies includes bilateral adrenal hemorrhage or possibly reactive hyperplasia. The exact etiology is not certain. Esperanza Odell MD Head CT 01/04/1748 Signed Impressions: Service Date/Time: Wednesday, January 04, 2017 08:58 - CONCLUSION: Unremarkable examination for each. Tyler Nagy MD Neck CT 01/04/17 0000 Signed Impressions: Service Date/Time: Wednesday, January 04, 2017 20:49 - CONCLUSION: Questionable thickening of the vocal cords. These can be directly inspected. Otherwise the study appears grossly normal for a noncontrast CT of the neck. Santos Whitley MD Lower Extremity Ultrasound 01/04/17 0000 Signed Impressions: Service Date/Time: Wednesday, January 04, 2017 18:55 - CONCLUSION: Partially occlusive thrombus in the right superficial femoral, popliteal and peroneal veins. No thrombus is seen on the left side. Santos Whitley MD Chest CT 01/04/17 0000 Signed Impressions: Service Date/Time: Wednesday, January 04, 2017 20:50 - CONCLUSION: 1. Mild bilateral pleural effusions with suspected accompanying areas of atelectasis or consolidation at the lung bases. 2. Coronary artery calcifications. Santos Whitley MD Brain MRI 01/04/17 0000 Signed Impressions: Service Date/Time: Wednesday, January 04, 2017 21:19 - CONCLUSION: Atrophy and mild chronic white matter changes. No acute infarct or other acute intracranial abnormality. Santos Arce MD Abdomen/Pelvis CT 01/04/17 0000 Signed Impressions: Service Date/Time: Wednesday, January 04, 2017 10:32 - CONCLUSION: 1. New abnormal bowel gas pattern of concern for distal small bowel obstruction. 2. New bilateral adrenal masses which were not present 2 days ago. The differential includes adrenal hemorrhage and/or hyperplasia. 3. New small pleural effusions right greater than left. 4. Mild diverticulosis. Tyler Nagy MD Last Impressions Head CT 01/04/1748 Signed Impressions: Service Date/Time: Wednesday, January 04, 2017 08:58 - CONCLUSION: Unremarkable examination for each. Tyler Nagy MD Chest X-Ray 01/04/17 0000 Signed Impressions: Service Date/Time: Wednesday, January 04, 2017 08:59 - CONCLUSION: No acute disease. There is no evidence of pneumonia. Tyler Nagy MD Abdomen/Pelvis CT 01/04/17 0000 Signed Impressions: Service Date/Time: Wednesday, January 04, 2017 10:32 - CONCLUSION: 1. New abnormal bowel gas pattern of concern for distal small bowel obstruction. 2. New bilateral adrenal masses which were not present 2 days ago. The differential includes adrenal hemorrhage and/or hyperplasia. 3. New small pleural effusions right greater than left. 4. Mild diverticulosis. Tyler Nagy MD Objective Remarks P/E GENERAL: 76-year-old critically ill appearing male, intubated and sedated. Edematous. SKIN: Warm, flushed, damp. Chronic venous stasis wound HEAD: Atraumatic. Normocephalic. EYES: Pupils equal and round about 2 mm bilaterally, reactive. ENT: No nasal bleeding or discharge. Mucous membranes pink and moist. NECK: Trachea midline. Orally intubated. CARDIOVASCULAR: S1, S2 normal. No S4. rate 80s, RESPIRATORY: Mechanical ventilation, now on PSV. Right rhonchi. No wheezes. GASTROINTESTINAL: Abdomen remains distended. No guarding. Nontender. Active bowel sounds are appreciated NG tube to LIS MUSCULOSKELETAL: Bilateral lower extremity edema. R>>L NEUROLOGICAL: Moving extremities 4, opens eyes, follows commands. Urinary Catheter: Yes Assessment to: Continue Parada insert reason: Measure Accurate Output Date of Insertion: Jan 04, 2017 Date of Insertion: Jan 04, 2017 Side: Left Location: Subclavian A/P Assessment and Plan Neuro/Psych: Acute toxic metabolic encephalopathy History of EtOH Depression/anxiety Precedex to facilitate ventilator weaning if needed CT head 01/04 reveals no acute intracranial abnormalities Holding bupropion 150 mg by mouth daily, Hold Ultram and Percocet with altered mental status currently Thiamine/folate/multivitamin daily with EtOH use MRI/A brain 01/05- normal exam Monitor for alcohol withdrawal-seizure precautions CV: Fluid overload Right lower extremity DVT Hypertension On Lasix gtt. DCd 01/14 due to increasing creat. As needed hydralazine/labetalol/Nitropaste to maintain systolic blood pressure was 160 Home medication of Lopressor 25 mg BID- on hold 01/05 right lower extremity Dopplers ultrasound for DVT-partially occlusive thrombus right SFA, popliteal and peroneal veins Unable to anticoagulate due to adrenal hemorrhage Resp: Acute hypoxic respiratory failure requiring intubation Mechanical ventilation 14/500/0.40/5. Ventilator bundle. Chest x-ray 01/04 reveals no acute cardiopulmonary findings Required intubation 01/05 for labored breathing due to bronchospasm. Bronchospasm corrected 01/09 Extubated 01/13 but had to be reintubated Daily SBT, may need trach due to NM weakness. Today again tolerating CPAP well If CXR and parameters acceptable will try again to extubate GI: Small bowel obstruction versus ileus CT abd/pelvis 01/04 revealed right 3.6 x 2.4 cm and left 2.5 x 1.4 cm adrenal masses. Distal esophagus with thickening. Dilated stomach. Colonic Diverticuli. Compressed colon. Possible bowel obstruction. Dr. Saleh/general surgery consulted-medical management at this time. Tentative plan for possible small bowel follow-through MRI suggested bilateral adrenal hemorrhage Negative ultrasound gallbladder 01/02 Renal: Acute kidney injury Proteinuria Patient states he needed kidney biopsy in past but refused Follow-up a.m. BMP Accurate I's and O's Monitor urine output ADH elevated, ACTH normal range Endo: Adrenal mass -bilateral possible hemorrhage B/L adrenal hemorrhage See CT abdomen/pelvis results above. Follow-up on adrenal insufficiency workup ADH ordered -results pending Noted hypertensive. Potassium normal. Continue hydrocortisone 50 mg 3 times a day, consider wean to PO if/when successfully extubated Sliding-scale insulin with Accu-Cheks to maintain euglycemia/low regimen Heme: Leukocytosis Thrombocytosis Chronic Xarelto use Unable to anticoagulate for LE DVT due to adrenal hemorrhage Consult IR for IVC filter parchment Follow CBC name. Monitor trends. CBC downtrending. Unknown if infectious etiology. ID Dr. Salinas UA negative. Procalcitonin normal ID: ABX per ID, currently observing off on antibiotics Monitor for infection Pertinent cultures 01/04 - blood cultures 2 - negative 01/04 - UA - negative 01/02 - blood cultures 2 - negative FEN: Hyponatremia - hypoosmolar 01/04 Cortisol level equivocal/F/u on cosyntropin test TSH was 1.12. Uric acid 3.0. Lipid panel ordered. 2% NaCl infusion-discontinued Continue 0.9 sodium chloride at 84 cc/hour-DCd now due to fluid overload Continue every 6 hours sodium level monitoring MSK: Right lower extremity wound Wound care evaluation Access - Utilize peripheral IV. Left subclavian 01/04. Radial a line removed 2 in 2 days , secondary to clotting Prophylaxis - GI - Protonix - DVT - SCD/holding Xarelto in light of possible adrenal hemorrhage Overall impression: Remains critically ill. Failed extubation 01/13/17. May attempt again, need trach if continues to fail Celina Graham MD January 15, 2017 15:17
--- NOTE | 2017-01-15 16:44 | RADRPT ---
EXAM DATE/TIME: 01/15/2017 14:51 [facility] COMPARISON: CHEST SINGLE AP, January 12, 2017, 4:16. INDICATIONS : Short of breath, respiratory disease MEDICAL HISTORY : small bowel obstruction SURGICAL HISTORY : None. ENCOUNTER: Subsequent ACUITY: 1 week PAIN SCORE: Non-responsive. LOCATION: Bilateral chest FINDINGS: A single view of the chest demonstrates minimal right upper lobe and right perihilar densities, less prominent on current study. Endotracheal tube, nasogastric tube and left subclavian central line are stable position.. Osseous structures are intact. CONCLUSION: Decreasing densities in the right lung. Dk Benedict MD on January 15, 2017 at 16:42 Board Certified Radiologist. This report was verified electronically.
[2017-01-16] VITALS (12 sets, daily range): BP systolic 145–182; BP diastolic 71–98; PULSE 68–96; RESP 14–19; TEMP 98.9–99.3; O2SAT 96–98
[2017-01-16] MEDS: LABETALOL HCL 100 MG/20 ML VIAL IV PUSH PRN ×3 (03:42→07:22)
[2017-01-16] MEDS: CHLORHEXIDINE GLUCONATE 2 % 1 PACK (2 CLOTHS) TOP SCH (04:13)
[2017-01-16] MEDS: hydrALAZINE HCL 20 MG/ML VIAL IV PUSH PRN (04:23)
[2017-01-16] MEDS: RESP: ALBUTEROL 2.5 MG/IPRATROPIUM 0.5 MG NEB (SCH) NEB ×4 (05:10→20:57)
[2017-01-16] MEDS: HYDROCORTISONE SOD SUCCINATE 100 MG VIAL IV PUSH SCH ×3 (06:05→23:10)
[2017-01-16] MEDS: INSULIN NovoLIN REGULAR SUPPLEMENTAL SCALE SQ SCH ×4 (06:56→21:00)
--- NOTE | 2017-01-16 06:56 | MB ---
cc: JAZMYN CARRENO DATE OF CONSULTATION 01/15/2017 DATE OF 1940 REASON FOR CONSULTATION Patient with DVT and bilateral adrenal hemorrhages. The patient was seen on January 15, 2017 as an inpatient consult. HISTORY OF PRESENT ILLNESS This is a 76-year-old male who has a history of lower extremity DVT and he is on Xarelto for at least one year. He has a chronic right lower extremity wound. He presented to the [place] emergency department with altered mental status. He had a recent admission on 01/02 and was found to have pyelonephritis. On this admission, the patient became hypoxic and tachycardic. He was intubated. He also had hyponatremia and was placed on hypertonic saline. During the course of this admission, a CT of the abdomen and pelvis was obtained. This revealed subacute hemorrhage of both adrenal glands. He also had Doppler ultrasound of the lower extremities which revealed a nonocclusive thrombus in the proximal superficial vein which was extending into the popliteal vein. There was also an occlusive superficial venous thrombosis in the greater saphenous vein. The common femoral vein was patent. I have been consulted to make further recommendations to this patient who possibly has acute on chronic DVT and has bilateral adrenal hemorrhages. She has had an MRI of the abdomen on 01/05/2017. Again, the bilateral adrenal masses were seen and it was thought to be either bilateral adrenal hemorrhage or possibly reactive hyperplasia. On 01/06/2017, the patient's hemoglobin was 11.8. It has subsequently dropped down to 9.7 today. His MCV is 90.7. He has leukocytosis of 17.5. These are primarily neutrophils. Platelet count is within normal range at 245. His coag's reveal an INR 1.1 and PT of 12.4. The patient was extubated today and he is currently on BiPAP. His clinical course has been complicated with A. Fib with RVR. He is currently rate controlled. The patient is alert and responds to verbal cues. He is unable to answer my questions and is still somewhat confused. REVIEW OF SYSTEMS Unable to be completed due to the patient's mental status. PAST MEDICAL HISTORY 1. History of right lower extremity DVT. 2. Hypertension 3. Chronic lower extremity wound 4. Anxiety 5. Depression 6. Hypertension PAST SURGICAL HISTORY 1. Right lower extremity vein stripping 2. Vasectomy 3. Hernia repair FAMILY HISTORY Unable to be obtained due to the patient's mental status. SOCIAL HISTORY Unable to be obtained from the patient directly. I have reviewed the notes from the EMR, it appears that he has a history of tobacco abuse. PHYSICAL EXAMINATION VITAL SIGNS: Blood pressure is 173/85, pulse is in the 90s, temperature is 99.4, respiratory rate is 13, O2 sats are 96% on BiPAP at . GENERAL: An elderly male who appears to be acutely ill. HEENT: Pupils are equal, round, reactive to light. EOMI. No oral thrush. No oral lesions. NECK: Supple. No JVD, no bruits. No lymphadenopathy. CHEST: Has bilateral coarse sounds. Occasional rhonchi. CARDIAC: Irregularly irregular heart rate. ABDOMEN: Soft, somewhat distended. No guarding or rebound. Bowel sounds are decreased. EXTREMITIES: Edematous. There is a chronic wound in the right lower extremity in the dorsum. It is covered with a bandage. There is some oozing and there is some clear material oozing out of the wound. The edema extends all the way above the knee. Left lower extremity is also edematous. Pulses are 1+. NEUROLOGIC: No focal deficits. PSYCHIATRIC: Mood and affect is appropriate. LABORATORY DATA WBC 17.5, hemoglobin 9.7, platelet count is 245,000. Sodium is 148, potassium is 3.3, CO2 is 29.6, creatinine is 2.46, total bilirubin is 0.9, AST 25, ALT is 23, alk phos 137, total protein is 5.1. IMAGING STUDIES Reviewed in the EMR including the Doppler ultrasound of lower extremities. CT ABDOMEN AND PELVIS An MRI of the abdomen and pelvis and additional imaging was also reviewed. ASSESSMENT/PLAN This is a 76-year-old male who has a history of right lower extremity DVT who has been on chronic Xarelto. He was admitted to the hospital with altered mental status. The patient developed acute respiratory failure. He has been extubated and he is currently on BiPap. Hematology has been consulted to make recommendations in this patient who possibly has bilateral adrenal hemorrhage and has acute on chronic lower extremity DVT. 1. Right lower extremity DVT possibly acute on chronic. 2. He has bilateral adrenal masses which were not present prior to 01/04/2017. These of thought to be either bilateral adrenal hemorrhages or adrenal hyperplasia. 3. His hemoglobin has dropped since his admission. At this time, anticoagulation is contraindicated. There is a high risk of clot expansion and pulmonary embolism in this patient. I would recommend placing an IVC filter. If his hemoglobin remains stable, we could attempted to start heparin GTT. 4. We will need to obtain follow up abdominal imaging to make sure that bilateral adrenal hemorrhages are stable. 5. He also has atrial fibrillation and would benefit from continued anticoagulation, however at this time, we need to make sure that the adrenal hemorrhages are not worsening and they are stable. Thank you for allowing me to participate in the care of this patient. I will continue to follow this patient along. MD KIARA Mendes/SHERRY /1:53 AM /6:32 AM
[2017-01-16] MEDS: CHLORHEXIDINE 0.12% (ORAL KIT) 15 ML CUP MT SCH ×2 (08:00→19:23)
[2017-01-16] MEDS: FOLIC ACID 1 MG TAB PO SCH (08:37)
[2017-01-16] MEDS: MULTIVITAMIN TAB PO SCH (08:37)
[2017-01-16] MEDS: PANTOPRAZOLE SODIUM 40 MG VIAL IV SCH (08:37)
[2017-01-16] MEDS: DOCUSATE SODIUM 100 MG CAP PO SCH ×2 (08:37→20:17)
[2017-01-16] MEDS: THIAMINE INJ 100 MG in SODIUM CHLORIDE 0.9% INJ 100 ML IV SCH (08:37)
[2017-01-16] MEDS: SODIUM CHLORIDE 0.9% FLUSH 10 ML FLUSH IV FLUSH SCH ×2 (08:37→21:04)
[2017-01-16] MEDS: METOPROLOL TARTRATE 25 MG TAB PO SCH ×2 (08:37→20:17)
[2017-01-16 10:05] LABS: HEMATOCRIT 32.2 % (39.0-51.0); MEAN CELL VOLUME 90.3 FL (80.0-100.0); MEAN CORPUSCULAR HEMOGLOBIN 31.1 PG (27.0-34.0); MEAN CORPUSCULAR HGB CONC 34.5 % (32.0-36.0); PLATELET COUNT 292 TH/MM3 (150-450); RED BLOOD COUNT 3.56 MIL/MM3 (4.50-5.90); RED CELL DISTRIBUTION WIDTH 16.7 % (11.6-17.2); REVIEW FLAG FINAL
[2017-01-16 10:27] LABS: BICARBONATE 30.4 MEQ/L (21.0-32.0); POTASSIUM 3.2 MEQ/L (3.5-5.1)
[2017-01-16] MEDS ORDERED: MIDAZOLAM HCL 5 MG/5 ML VIAL ONE (10:38)
[2017-01-16] MEDS ORDERED: fentaNYL CITRATE 250 MCG/5 ML AMP ONE (10:39)
[2017-01-16] MEDS ORDERED: ceFAZolin 2 GM PREMIX 50 ML ONE (10:56)
--- NOTE | 2017-01-16 11:09 | PD.RAD ---
Post Procedure Progress Note Pre Procedure Diagnosis: (1) DVT (deep venous thrombosis) (2) Anticoagulant long-term use Post Procedure Diagnosis: (1) DVT (deep venous thrombosis) (2) Anticoagulant long-term use Procedure Date: January 16, 2017 Supervising Radiologist: Matthew Aguirre Proceduralist/Assist: Dominga Moseley, RT(R)(CV), Teagan Tarango RT(R)() Anesthesia: Local, Conscious Sedation Plan of Activity Patient to Unit: Critical Care Patient Condition: Fair See PACS Report for procedural detail/treatment Matthew Aguirre MD January 16, 2017 11:09
--- NOTE | 2017-01-16 11:10 | PD.RAD ---
Post Procedure Progress Note Procedure Date: January 16, 2017 Supervising Radiologist: Matthew Aguirre Plan of Activity See PACS Report for procedural detail/treatment Vascular-Venous Procedure Procedure 1 Procedure Site: Abdominal Procedure(s): Permanent IVC Filter Access Access Site(s): Right Femoral Vein Matthew Aguirre MD January 16, 2017 11:10
[2017-01-16] MEDS ORDERED: IOHEXOL 300 MG/ML 50 ML BTL (for RAD DIAG) IV ONE (11:35)
--- NOTE | 2017-01-16 11:58 | RADRPT ---
EXAM DATE/TIME: 01/16/2017 10:36 [facility] COMPARISON: No previous studies available for comparison. INDICATIONS : Patient with history of DVT and recent surgery in need of IVC filter placement. MEDICAL HISTORY : Depression Anxiety Hypertension Chronic Xarelto use Right lower extremity DVT Chronic right lower extremity wound Narcotic use SURGICAL HISTORY : Right lower extremity vein stripping Vasectomy Hernia repair ENCOUNTER: Initial ACUITY: >1 year PAIN SCORE: 0/10 FLUORO TIME: 0.9 minutes IMAGE SERIES: 2 ACCESS SITE: Right Femoral vein SEDATION TIME: 15 minutes CONTRAST: 1.) 50 cc Omnipaque (iohexol) 350 MEDICATION(S): 1.) 1 mg midazolam (Versed) IV 2.) 50 mcg fentanyl (Sublimaze) IV DEVICE(S): 1.) Inferior vena cava B Pitt Venatech filter PROCEDURE : 1. Ultrasound-guided venipuncture. 2. Inferior venacavogram. 3. Inferior vena cava filter placement. 4. Conscious sedation with continuous EKG and oximetry monitoring. The risks, benefits and alternatives to the procedure were explained and verbal and written consent w as obtained. The site was prepped in sterile fashion. Full sterile technique was used, including ca p, mask, sterile gloves and gown and a large sterile sheet. Hand hygiene and 2% chlorhexidine and/or betadine/alcohol prep was utilized per protocol for cutaneous antisepsis. The skin and subcutaneous tissues were infiltrated with local anesthetic solution. With ultrasound and fluoroscopic guidance the targeted vein was punctured and a vascular sheath was p laced. Inferior venacavogram was performed to demonstrate level of renal veins. No caval thrombus was identified. The prescribed filter was deployed in the infrarenal inferior vena cava. Following deplo yment the filter was identified in good position. Conscious sedation was performed with the prescribed dosages and duration as above in the presence of an independent trained radiology nurse to assist in the monitoring of the patient. EKG and oximetry remained stable throughout the procedure. The patient tolerated the procedure well and there were n o complications. The patient was sent to post anesthesia recovery in stable condition. CONCLUSION: Uncomplicated inferior vena cava filter placement as above. Matthew Aguirre MD on January 16, 2017 at 11:55 Board Certified Radiologist. This report was verified electronically.
--- NOTE | 2017-01-16 12:03 | PD.PROCEDR ---
Procedure Note Procedure NOTE IS FOR 01/13: DX: Hypoxemic Respiratory Failure (J96.01) OP: Orotracheal Intubation (46865) Procedure: Bag mask ventilation. Versed 5 mg iv X 2, rocuronium 100 mg iv. Intubated orally with 8.0 tube. Position confirmed with CO2 detection, breath sounds, improved sats to 100%. CXR obtained, tube in good position mid trachea. Kingsley Alba MD January 16, 2017 12:03
--- NOTE | 2017-01-16 12:41 | PD.ONC.PN ---
Subjective Subjective Remarks Afebrile overnight. Pt resting in bed eating a popsicle. Per RN he has just come back from IR where he had an IVC filter placed. No complications. Objective Data Date Time Temp Pulse Resp B/P Pulse Ox O2 Delivery O2 Flow Rate FiO2 01/16/17 12:00 96 01/16/17 10:00 98 Nasal Cannula 3.00 01/16/17 08:00 68 01/16/17 08:00 99.2 68 17 149/71 97 01/16/17 07:00 96 Nasal Cannula 3.00 01/16/17 06:00 74 01/16/17 05:10 98 40 01/16/17 04:00 40 01/16/17 04:00 88 01/16/17 04:00 99.3 79 14 168/84 97 01/16/17 02:00 40 01/16/17 02:00 92 01/16/17 01:30 98 40 01/16/17 00:00 83 01/16/17 00:00 40 01/16/17 00:00 99.1 89 14 145/73 98 01/15/17 22:09 98 BiPAP 40 01/15/17 22:09 98 40 01/15/17 22:00 72 01/15/17 20:00 99.3 96 14 196/99 96 01/15/17 20:00 98 Bi-Pap 40 01/15/17 20:00 92 01/15/17 20:00 40 01/15/17 16:00 99.4 94 13 173/85 96 01/15/17 16:00 94 01/15/17 15:35 97 40 01/15/17 15:35 97 BiPAP/CPAP 40 01/15/17 12:41 40 01/15/17 12:40 40 01/15/17 12:40 100 40 01/16/17 01/16/17 01/16/17 07:00 15:00 23:00 Output Total 475 ml Balance -475 ml Result Diagram: 01/16/1745 01/16/17 0945 Laboratory Results Laboratory Tests Test 01/15/17 01/15/17 01/16/17 14:48 19:35 09:45 Blood Gas Puncture Site RT RADIAL Blood Gas Patient Temperature 98.6 Blood Gas HCO3 28 mmol/L Blood Gas Base Excess 4.5 mmol/L Blood Gas Oxygen Saturation 90 % Arterial Blood pH 7.48 Arterial Blood Partial 38 mmHg Pressure CO2 Arterial Blood Partial 57 mmHg Pressure O2 Arterial Blood Oxygen Content 14.3 Vol % Arterial Blood 1.4 % Carboxyhemoglobin Arterial Blood Methemoglobin 1.0 % Blood Gas Hemoglobin 11.3 G/DL Oxygen Delivery Device VENTILATOR Blood Gas Ventilator Setting CPAP/PEEP5/PS5 Blood Gas Inspired Oxygen 40 % Potassium Level 3.3 MEQ/L 3.2 MEQ/L White Blood Count 23.0 TH/MM3 Red Blood Count 3.56 MIL/MM3 Hemoglobin 11.1 GM/DL Hematocrit 32.2 % Mean Corpuscular Volume 90.3 FL Mean Corpuscular Hemoglobin 31.1 PG Mean Corpuscular Hemoglobin 34.5 % Concent Red Cell Distribution Width 16.7 % Platelet Count 292 TH/MM3 Mean Platelet Volume 8.6 FL Sodium Level 149 MEQ/L Chloride Level 111 MEQ/L Carbon Dioxide Level 30.4 MEQ/L Anion Gap 8 MEQ/L Blood Urea Nitrogen 80 MG/DL Creatinine 2.18 MG/DL Estimat Glomerular Filtration 30 ML/MIN Rate Random Glucose 92 MG/DL Calcium Level 9.0 MG/DL Imaging Studies Last 48 hours Impressions IVC Filter Placement X-Ray 01/16/17 0000 Signed Impressions: Service Date/Time: Monday, January 16, 2017 10:36 - CONCLUSION: Uncomplicated inferior vena cava filter placement as above. Matthew Aguirre MD Chest X-Ray 01/15/17 0000 Signed Impressions: Service Date/Time: Sunday, January 15, 2017 14:51 - CONCLUSION: Decreasing densities in the right lung. Dk Benedict MD Last 24 hours Impressions IVC Filter Placement X-Ray 01/16/17 0000 Signed Impressions: Service Date/Time: Monday, January 16, 2017 10:36 - CONCLUSION: Uncomplicated inferior vena cava filter placement as above. Matthew Aguirre MD Administered Medications Medications (Trade) Dose Ordered Sig/Jose Route PRN Reason Start Time Stop Time Status Last Admin Dose Admin Sodium Chloride (NS Flush) 2 ml BID IV FLUSH 01/04/17 21:00 01/16/17 08:37 Pantoprazole Sodium (Protonix Inj) 40 mg DAILY IV 01/05/17 09:00 01/16/17 08:37 Artificial Tears (Tears Naturale Opth Soln) 1 drop TID EACH EYE 01/04/17 18:00 01/15/17 18:00 Docusate Sodium (Colace) 100 mg BID PO 01/04/17 21:00 01/16/17 08:37 Chlorhexidine Gluconate Taper DAILY@04 TOP 01/05/17 04:00 01/01/18 03:59 01/16/17 04:13 Thiamine HCl/ Sodium Chloride (Thiamine Inj/NS Inj) 101 ml @ 101 mls/hr DAILY IV 01/05/17 09:00 01/16/17 08:37 Folic Acid (Folate) 1 mg DAILY PO 01/05/17 09:00 01/16/17 08:37 Multivitamins (Theragran) 1 tab DAILY PO 01/05/17 09:00 01/16/17 08:37 Labetalol HCl (Trandate Inj) 10 mg Q1HR PRN IV PUSH SBP>160, DBP>90, HR>65 01/04/17 15:30 01/16/17 07:22 Hydralazine HCl (Apresoline Inj) 10 mg Q1HR PRN IV PUSH SBP>160, DBP>90 01/04/17 15:30 01/16/17 04:23 Nitroglycerin (Nitroglycerin 2% Oint) 2 inch Q6HR PRN TOPICAL SBP>160, DBP>90 01/04/17 15:30 01/04/17 18:17 Chlorhexidine Gluconate 15 ml 15 ml BID@08,20 MT 01/05/17 08:00 01/15/17 08:00 Fentanyl Citrate 250 ml @ 0 mls/hr TITRATE IV 01/05/17 04:30 01/15/17 05:45 Phenylephrine HCl 80 mg/Dextrose 500 ml @ 0 mls/hr TITRATE IV 01/05/17 04:30 01/08/17 11:29 Potassium Chloride 100 ml @ 50 mls/hr Q2H PRN IV For Potassium 2.8 - 3.2 mEq/L 01/06/17 15:00 01/15/17 06:38 Potassium Chloride 100 ml @ 25 mls/hr UNSCH PRN IV For Potassium 3.3 - 3.5 mEq/L 01/06/17 15:00 01/12/17 06:05 Sodium Phosphate 30 mmol/Sodium Chloride 250 ml @ 42 mls/hr UNSCH PRN IV For Phosphorus < 2.5 mg/dL 01/06/17 15:00 01/06/17 16:42 Propofol (Diprivan 1000 Mg/100ml Inj) 100 ml @ 0 mls/hr TITRATE IV 01/07/17 03:45 01/15/17 12:26 Hydrocortisone Sodium Succinate (SoluCORTEF INJ) 50 mg Q8HR IV PUSH 01/08/17 14:00 01/16/17 06:05 Metoprolol Tartrate 50 mg 50 mg Q12HR PO 01/09/17 21:00 01/16/17 08:37 Dexmedetomidine HCl/Sodium Chloride (Precedex Inj/NS 250 ml Inj) 250 ml @ 0 mls/hr TITRATE IV 01/10/17 08:23 01/13/17 07:59 Objective Remarks GENERAL: Elderly male, sitting up in bed eating a popsicle in no distress. SKIN: Warm and dry. HEAD: Normocephalic. EYES: No injection or drainage. NECK: Supple, trachea midline. CARDIOVASCULAR: +S1/S2. No murmur. RESPIRATORY: Lungs clear anteriorly. Breathing unlabored. GASTROINTESTINAL: Abdomen protuberant, non-tender. EXTREMITIES: RLE with extensive edema. SCD to LLE. NEUROLOGICAL: Normal speech. Follows commands. Moving all extremities. Assessment/Plan Problem List: (1) DVT (deep venous thrombosis) Status: Acute Plan: -- Pt not a candidate for anticoagulation due to subacute hemorrhages of the adrenal gland. -- s/p IVC filter placement on 01/16/17 Assessment 76 y/o male admitted for AMS who went into respiratory failure; Hematology consulted for RLE DVT with bilateral adrenal hemorrhages. Plan 1. IVC filter placed today. 2. He has a high clot burden. We will monitor the Hgb as well as the adrenal hemorrhages. 3. If both of these above remain stable, we may place him on a heparin gtt. 4. Daily CBC. Attending Statement The exam, history, and the medical decision-making described in the above note were completed with the assistance of the mid-level provider. I reviewed and agree with the findings presented. I attest that I had a [id number] encounter with the patient on the same day, and personally performed and documented my assessment and findings in the medical record. monitor Hb. possible repeat imaging of abdomen to make sure adrenal hemorrhage is stable over the next 48-78 hours will consider starting on hepairn GTT if hb stable. Wendy Duffy January 16, 2017 12:41 Anatoliy Arauz MD January 17, 2017 00:10
[2017-01-16] MEDS: POTASSIUM CHLOR 40 MEQ PREMIX 100 ML IV PRN ×2 (12:59→15:10)
--- NOTE | 2017-01-16 13:32 | HHI.CCPN ---
Subjective Remarks/Hospital Course 76-year-old Male. Date of Admission 01/04/2017. 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 This Is 5 x 5 Cm. Covered in Blue Bandage. Patient Presents to [facility] after Being Discharged 01/02 with Altered Mental Status. 01/[address] abdomen pelvis which showed induration of the right kidney possibly past of possible pyelonephritis. UA was negative for infection. 2 cm cyst at the left kidney pole. Sigmoid diverticulosis. Degenerative disc disease lumbar spine. Patient did have a low-sodium 126 at that time.at that time, he was complaining of severe bilateral flank pain. Was associated after eating greasy food at [facility]. Associated with nausea and vomiting Saturday and Saturday prior to admission. He felt better the next morning was sent home on Levaquin. Day, patient was found confused and altered by his roommate this morning. Was transferred to [facility]. CT abdomen and pelvis revealed a right-sided 3.6 x 2.5 cm left 2.5 adrenal mass. Possible hemorrhage. Dilated esophagus with thickening, and dilated stomach, colon diverticula. Possible small bowel obstruction. NG tube was placed with 800cc brown gastric contents removed. /general surgery was consulted and has seen the patient for possible small bowel obstruction. Patient is room air, hypertensive requiring 40 mg labetalol. 01/05: Patient more agitated with fever 102, tachycardia worse, and diffuse wheezing, labored respiratory effort. Na 116. Received 100 ml 3% saline, lasix 40 mg, intubation and ventilation. Head CT and MRI normal aside from atrophy. 01/06: Tmax 98.7. Continued elevation in WBC count. ID consult to Dr. Salinas following, Flagyl was added to medication regime yesterday. The patient was placed on a 2% sodium infusion for hyponatremia. Coagulant studies still pending, no growth from blood cultures will obtain sputum culture today. Patient continues on vasopressor support requiring Phenylephrine. 01/07 Tmax 98.8. The patient went into A. fib RVR last night heart rate 150's, phenylephrine was increased, currently in A. fib rate controlled 90's. Phenylephrine continues to be infused at 60 mcgs. Sodium level 134, 2% sodium infusion discontinued. 01/08: Tachycardia persists. Renal function acceptable, lytes require repletion , add K. 01/09: Tolerating CPAP trails with PS 10. BP 220/145. Convert to precedex, attempt to extubated. 01/10: On Precedex and fentanyl infusions to facilitate weaning trials. Remains fluid overloaded. Approximately 15 KG up. Will start Bumex today with IV albumin. 01/11: White count rising, new right lung infiltrate. 01/12: Generalized edema worse. Will proceed with gentle diuresis. CXR with right infiltrate and bilateral pulmonary venous congestion. 01/13: Tolerating SBT, sats acceptable. Very anxious. Will extubate. 01/14: Remains intubated sedated. Urine output excellent on Lasix drip, creatinine has increased to 2.3. I will discontinue Lasix drip. We'll resume Precedex to facilitate ventilator weaning. Failed extubation yesterday 01/15: Intubated off sedation, tolerating CPAP. Creat 2.4 slightly increased. UO 2.3 L in 24 hours 01/16: Extubated yesterday, tolerating well. Getting IVC filter today. Patient competent to make his own decisions and consented for IVC filter Objective Vital Signs Date Time Temp Pulse Resp B/P Pulse Ox O2 Delivery O2 Flow Rate FiO2 01/16/17 12:00 96 01/16/17 10:00 98 Nasal Cannula 3.00 01/16/17 08:00 99.2 17 149/71 01/16/17 05:10 40 Intake and Output 01/15/17 01/15/17 01/16/17 08:00 16:00 00:00 Intake Total 356 ml 609 ml Output Total 300 ml 425 ml 700 ml Balance 56 ml 184 ml -700 ml Result Diagram: 01/16/17 0945 01/16/17 0945 Other Results Laboratory Tests Test 01/15/17 14:48 Blood Gas Puncture Site RT RADIAL Blood Gas Patient Temperature 98.6 Blood Gas HCO3 28 mmol/L (22-26) Blood Gas Base Excess 4.5 mmol/L (-2-2) Blood Gas Oxygen Saturation 90 % (90-100) Arterial Blood pH 7.48 (7.380-7.420) Arterial Blood Partial 38 mmHg (38-42) Pressure CO2 Arterial Blood Partial 57 mmHg Pressure O2 (61-120) Arterial Blood Oxygen Content 14.3 Vol % (12.0-20.0) Arterial Blood 1.4 % (0-4) Carboxyhemoglobin Arterial Blood Methemoglobin 1.0 % (0-2) Blood Gas Hemoglobin 11.3 G/DL (12.0-16.0) Oxygen Delivery Device VENTILATOR Blood Gas Ventilator Setting CPAP/PEEP5/PS5 Blood Gas Inspired Oxygen 40 % Imaging Last Impressions Chest X-Ray 01/07/17 0000 Signed Impressions: Service Date/Time: Saturday, January 07, 2017 01:13 - CONCLUSION: 1. Cardiomegaly. Left lower lobe atelectasis versus pneumonia. 2. Cardiomegaly and findings of vascular congestion without overt failure. There has been no significant change when compared to the prior exam. Aneudy Dennis MD Head Magnetic Resonance Angiography 01/05/17 0000 Signed Impressions: Service Date/Time: Thursday, January 05, 2017 14:37 - CONCLUSION: Normal examination. Esperanza Odell MD Abdomen MRI 01/05/17 0000 Signed Impressions: Service Date/Time: Thursday, January 05, 2017 14:37 - CONCLUSION: The bilateral adrenal masses have developed since the CT abdomen from 01/02/2017 and the most likely etiologies includes bilateral adrenal hemorrhage or possibly reactive hyperplasia. The exact etiology is not certain. Esperanza Odell MD Head CT 01/04/17 0848 Signed Impressions: Service Date/Time: Wednesday, January 04, 2017 08:58 - CONCLUSION: Unremarkable examination for each. Tyler Nagy MD Neck CT 01/04/17 0000 Signed Impressions: Service Date/Time: Wednesday, January 04, 2017 20:49 - CONCLUSION: Questionable thickening of the vocal cords. These can be directly inspected. Otherwise the study appears grossly normal for a noncontrast CT of the neck. Santos Whitley MD Lower Extremity Ultrasound 01/04/17 0000 Signed Impressions: Service Date/Time: Wednesday, January 04, 2017 18:55 - CONCLUSION: Partially occlusive thrombus in the right superficial femoral, popliteal and peroneal veins. No thrombus is seen on the left side. Santos Whitley MD Chest CT 01/04/17 0000 Signed Impressions: Service Date/Time: Wednesday, January 04, 2017 20:50 - CONCLUSION: 1. Mild bilateral pleural effusions with suspected accompanying areas of atelectasis or consolidation at the lung bases. 2. Coronary artery calcifications. Santos Whitley MD Brain MRI 01/04/17 0000 Signed Impressions: Service Date/Time: Wednesday, January 04, 2017 21:19 - CONCLUSION: Atrophy and mild chronic white matter changes. No acute infarct or other acute intracranial abnormality. Santos Arce MD Abdomen/Pelvis CT 01/04/17 Signed Impressions: Service Date/Time: Wednesday, January 04, 2017 10:32 - CONCLUSION: 1. New abnormal bowel gas pattern of concern for distal small bowel obstruction. 2. New bilateral adrenal masses which were not present 2 days ago. The differential includes adrenal hemorrhage and/or hyperplasia. 3. New small pleural effusions right greater than left. 4. Mild diverticulosis. Tyler Nagy MD Last Impressions Head CT 01/04/17 0848 Signed Impressions: Service Date/Time: Wednesday, January 04, 2017 08:58 - CONCLUSION: Unremarkable examination for each. Tyler Nagy MD Chest X-Ray 01/04/17 Signed Impressions: Service Date/Time: Wednesday, January 04, 2017 08:59 - CONCLUSION: No acute disease. There is no evidence of pneumonia. Tyler Nagy MD Abdomen/Pelvis CT 01/04/17 0000 Signed Impressions: Service Date/Time: Wednesday, January 04, 2017 10:32 - CONCLUSION: 1. New abnormal bowel gas pattern of concern for distal small bowel obstruction. 2. New bilateral adrenal masses which were not present 2 days ago. The differential includes adrenal hemorrhage and/or hyperplasia. 3. New small pleural effusions right greater than left. 4. Mild diverticulosis. Tyler Nagy MD Objective Remarks P/E GENERAL: 76-year-old male, now on NC. Edematous. SKIN: Warm, flushed, damp. Chronic venous stasis wound HEAD: Atraumatic. Normocephalic. EYES: Pupils equal and round about 2 mm bilaterally, reactive. ENT: No nasal bleeding or discharge. Mucous membranes pink and moist. NECK: Trachea midline. Orally intubated. CARDIOVASCULAR: S1, S2 normal. No S4. rate 80s, RESPIRATORY: On NC. Right rhonchi. No wheezes. GASTROINTESTINAL: Abdomen remains distended. No guarding. Nontender. Active bowel sounds are appreciated NG tube to LIS MUSCULOSKELETAL: Bilateral lower extremity edema. R>L NEUROLOGICAL: Oriented to person and to place, opens eyes, follows commands. Date of Insertion: Jan 04, 2017 Date of Insertion: Jan 04, 2017 Side: Left Location: Subclavian A/P Assessment and Plan Neuro/Psych: Acute toxic metabolic encephalopathy-resolving History of EtOH Depression/anxiety DC all continuos sedation. CT head 01/04 reveals no acute intracranial abnormalities Holding bupropion 150 mg by mouth daily, Hold Ultram and Percocet with altered mental status currently Thiamine/folate/multivitamin daily with EtOH use MRI/A brain 01/05- normal exam Monitor for alcohol withdrawal-seizure precautions CV: Right lower extremity DVT Fluid overload Hypertension As needed hydralazine/labetalol/Nitropaste to maintain systolic blood pressure was 160 Home medication of Lopressor 25 mg BID- on hold, resume today 01/16 01/05 right lower extremity Dopplers ultrasound for DVT-partially occlusive thrombus right SFA, popliteal and peroneal veins Unable to anticoagulate due to adrenal hemorrhage IVC filter today Resp: Acute hypoxic respiratory failure requiring intubation Extubated 01/15/17 tolerating well Required intubation 01/05 for labored breathing due to bronchospasm. Extubated 01/13 but had to be reintubated GI: Ileus CT abd/pelvis 01/04 revealed right 3.6 x 2.4 cm and left 2.5 x 1.4 cm adrenal masses. Distal esophagus with thickening. Dilated stomach. Colonic Diverticuli. Compressed colon. Possible bowel obstruction. Dr. Saleh/general surgery consulted-medical management at this time. Tentative plan for possible small bowel follow-through MRI suggested bilateral adrenal hemorrhage Negative ultrasound gallbladder 01/02 Renal: Acute kidney injury Proteinuria Patient states he needed kidney biopsy in past but refused Follow-up a.m. BMP Accurate I's and O's Monitor urine output ADH elevated, ACTH normal range Endo: B/L adrenal hemorrhage See CT abdomen/pelvis, MRI abdomen results Follow-up on adrenal insufficiency workup ADH elevated, ACTH normal range Noted hypertensive. Potassium normal. Continue hydrocortisone 50 mg 3 times a day, consider wean to PO if/when successfully extubated Sliding-scale insulin with Accu-Cheks to maintain euglycemia/low regimen Heme: Leukocytosis Thrombocytosis Chronic Xarelto use Left lower extremity DVT Unable to anticoagulate for LE DVT due to adrenal hemorrhage s/p IR for IVC filter placement today 01/16/17 MTFHR gene mutation positive Follow CBC name. Monitor trends. Unknown if infectious etiology. ID Dr. Salinas UA negative. Procalcitonin normal ID: Currently observing off on antibiotics Monitor for infection Pertinent cultures 01/04 - blood cultures 2 - negative 01/04 - UA - negative 01/02 - blood cultures 2 - negative FEN: Hyponatremia - hypoosmolar 01/04 Cortisol level equivocal/F/u on cosyntropin test TSH was 1.12. Uric acid 3.0. Lipid panel ordered. 2% NaCl infusion-discontinued Continue 0.9 sodium chloride at 84 cc/hour-DCd now due to fluid overload Continue every 6 hours sodium level monitoring MSK: Right lower extremity wound Wound care evaluation Access - Utilize peripheral IV. Left subclavian 01/04. Radial a line removed 2 in 2 days , secondary to clotting Prophylaxis - GI - Protonix - DVT - SCD/holding Xarelto in light of possible adrenal hemorrhage. IVC filter 01/16/17 Overall impression: Remains critically ill. extubated 01/16 improving Celina Graham MD January 16, 2017 13:32
[2017-01-16] MEDS ORDERED: LACTULOSE SYRUP 20 GM/30 ML CUP PO ONE (13:45)
[2017-01-16] MEDS ORDERED: BISACODYL 10 MG SUPP RECTAL ONE (13:45)
[2017-01-16] MEDS ORDERED: BISACODYL EC 5 MG TABEC PO ONE (13:45)
--- NOTE | 2017-01-16 13:52 | HHI.PR ---
Subjective Subjective Notes Resting in bed Extubated; stable pulmonary braun Objective Vitals/I&O Vital Signs Date Time Temp Pulse Resp B/P Pulse Ox O2 Delivery O2 Flow Rate FiO2 01/16/17 12:00 96 01/16/17 10:00 98 Nasal Cannula 3.00 01/16/17 08:00 99.2 17 149/71 01/16/17 05:10 40 Labs Laboratory Tests Test 01/15/17 01/15/17 01/16/17 01/16/17 14:48 19:35 09:45 13:09 Blood Gas Puncture Site RT RADIAL Blood Gas Patient Temperature 98.6 Blood Gas HCO3 28 Blood Gas Base Excess 4.5 Blood Gas Oxygen Saturation 90 Arterial Blood pH 7.48 Arterial Blood Partial 38 Pressure CO2 Arterial Blood Partial 57 Pressure O2 Arterial Blood Oxygen Content 14.3 Arterial Blood 1.4 Carboxyhemoglobin Arterial Blood Methemoglobin 1.0 Blood Gas Hemoglobin 11.3 Oxygen Delivery Device VENTILATOR Blood Gas Ventilator Setting CPAP/PEEP5/PS5 Blood Gas Inspired Oxygen 40 Potassium Level 3.3 3.2 White Blood Count 23.0 Red Blood Count 3.56 Hemoglobin 11.1 Hematocrit 32.2 Mean Corpuscular Volume 90.3 Mean Corpuscular Hemoglobin 31.1 Mean Corpuscular Hemoglobin 34.5 Concent Red Cell Distribution Width 16.7 Platelet Count 292 Mean Platelet Volume 8.6 Sodium Level 149 Chloride Level 111 Carbon Dioxide Level 30.4 Anion Gap 8 Blood Urea Nitrogen 80 Creatinine 2.18 Estimat Glomerular Filtration 30 Rate Random Glucose 92 Calcium Level 9.0 Lactic Acid Level 0.9 Cardiovascular: Regular Lungs: Clear Abdomen: Other (mildly distended; non tender ) Extremities: No edema A/P Assessment and Plan 76 year old male, MOSF; likely ileus secondary to medical conditions -Extubated; stable on NC -Abdominal exam improved from last week -Start clear liquids -Added cathartics -Discussed with ANANT Zepeda Attending Statement The exam, history, and the medical decision-making described in the above note were completed with the assistance of the mid-level provider. I reviewed and agree with the findings presented. I attest that I had a [id number] encounter with the patient on the same day, and personally performed and documented my assessment and findings in the medical record. Abdominal exam stable, no surgical issues Nancy Benson [facility] January 16, 2017 13:52 Bharat Saleh MD February 05, 2017 16:29
--- NOTE | 2017-01-16 15:04 | PD.CONS ---
HPI History of Present Illness This is a 76 year old male with multiple medical problems including depression, anxiety, anticoagulation with Xarelto for hx of DVT, hypertension, who presented to the ER on 01/04/17 with altered mental status. He required intubation with mechanical ventilation on 01/05 for a bronchospasm. He was extubated on 01/13, but required reintubation and was then extubated on 01/15. He was evaluated with CT scan abdomen and pelvis with iv contrast (01/04/17)----> new abnormal bowel gas pattern of concern for distal small bowel obstruction. New bilateral adrenal masses which were not present 2 days ago, the differential includes adrenal hemorrhage and or hyperplasia, new small pleural effusions right greater than left, mild diverticulosis. GS was consulted for possible small bowel obstruction and they feel this is more an ileus, as they could not find any significant transition point or decompressed bowel on imaging. He is on a bowel regimen of colace and senokot. He has remained in the ICU being treated for acute toxic metabolic encephalopathy, depression/ anxiety, right/left lower extremity DVT, fluid overload, hypertension, respiratory failure, acute kidney injury, bilateral adrenal hemorrhage, leukocytosis, thrombocytosis, right lower extremity wound, and electrolyte abnormalities. Rpt. CT abdomen and pelvis without iv contrast (01/11/17)---> subacute hemorrhage of both adrenal glands, not significantly changed on the left, smaller on the right, increased/new pleural fluid at both bases, new small ascites, new body wall edema/anasarca. No evidence of bowel obstruction. Nasogastric tube coiled in the stomach, patchy airspace consolidation of the right lung base, new. The patient was extubated yesterday. He is up in the chair and his NGT is clamped and the nurse reports that she did not get any significant residual from his NGT earlier today. He is tolerating a clear liquid diet and denies any nausea or vomiting and is requesting something to eat. He denies any abdominal pain, although he does have significant abdominal distention on exam. He has not had a bowel movement documented during this hospitalization. GI has been consulted for severe constipation, ileus vs. psbo. The patient has never had a colonoscopy. He denies any history of constipation or GI issues. He denies the use of narcotic use, although this is listed on his home meds. He denies any history of abdominal surgeries. ( Madelaine Velasquez) PFSH Past Medical History Depression Anxiety Hypertension Chronic Xarelto use Right lower extremity DVT Chronic right lower extremity wound Narcotic use Past Surgical History Right lower extremity vein stripping Vasectomy Hernia repair (Madelaine Velasquez) Coded Allergies: No Known Allergies (Unverified , 01/02/17) Medications Allergies Coded Allergies Type Severity Reaction Last Updated Verified No Known Allergies 01/02/17 No Active Scripts Medications Dose Route/Sig Days Date Category Percocet (Oxycodone-Acetaminophen) 5-325 mg Tab 1 Tab PO Q8HR PRN 01/04/17 Reported Tramadol (Tramadol HCl) 50 Mg Tab 50 Mg PO Q6H PRN 01/04/17 Reported Reglan (Metoclopramide HCl) 10 Mg Tab 10 Mg PO TIDAC 01/04/17 Reported Bupropion HCl ER 24 HR (Bupropion HCl) 150 Mg Tab 150 Mg PO DAILY 01/04/17 Reported Losartan (Losartan Potassium) 25 Mg Tab 25 Mg PO BID 01/04/17 Reported Levaquin (Levofloxacin) 750 Mg Tab 750 Mg PO DAILY@11 01/03/17 Rx Xarelto (Rivaroxaban) 10 Mg Tab 10 Mg PO DAILY 01/02/17 Reported Family History Noncontributory Social History Tobacco use, Denies the use of ETOH No IV drug use. (Madelaine Velasquez) Review of Systems Constitutional: COMPLAINS OF: Fatigue, DENIES: Change in appetite Respiratory: COMPLAINS OF: Shortness of breath, DENIES: Cough Cardiovascular: COMPLAINS OF: Lower Extremity Edema, DENIES: Chest pain Gastrointestinal: COMPLAINS OF: Constipation, Swelling of Abdomen, DENIES: Abdominal pain, Black stools, Bloody stools, Diarrhea, Nausea, Vomiting Musculoskeletal: COMPLAINS OF: Back pain Integumentary: DENIES: Jaundice Hematologic/lymphatic: COMPLAINS OF: Bruising Neurologic: DENIES: Headache Psychiatric: COMPLAINS OF: Confusion (Madelaine Velasquez) GI Exam Vitals I&O Vital Signs Date Time Temp Pulse Resp B/P Pulse Ox O2 Delivery O2 Flow Rate FiO2 01/16/17 12:00 96 01/16/17 10:00 98 Nasal Cannula 3.00 01/16/17 08:00 68 01/16/17 08:00 99.2 68 17 149/71 97 01/16/17 07:00 96 Nasal Cannula 3.00 01/16/17 06:00 74 01/16/17 05:10 98 40 01/16/17 04:00 40 01/16/17 04:00 88 01/16/17 04:00 99.3 79 14 168/84 97 01/16/17 02:00 40 01/16/17 02:00 92 01/16/17 01:30 98 40 01/16/17 00:00 83 01/16/17 00:00 40 01/16/17 00:00 99.1 89 14 145/73 98 01/15/17 22:09 98 BiPAP 40 01/15/17 22:09 98 40 01/15/17 22:00 72 01/15/17 20:00 99.3 96 14 196/99 96 01/15/17 20:00 98 Bi-Pap 40 01/15/17 20:00 92 01/15/17 20:00 40 01/15/17 16:00 99.4 94 13 173/85 96 01/15/17 16:00 94 01/15/17 15:35 97 40 01/15/17 15:35 97 BiPAP/CPAP 40 I/O 01/15/17 01/15/17 01/15/17 01/16/17 01/16/17 01/16/17 07:00 15:00 23:00 07:00 15:00 23:00 Intake Total 356 ml 609 ml Output Total 300 ml 425 ml 700 ml 475 ml Balance 56 ml 184 ml -700 ml -475 ml IV Total 356 ml 609 ml Output Urine Total 300 ml 425 ml 700 ml 475 ml Gastric Drainage Total 0 ml # Bowel Movements 0 Imaging Last Impressions IVC Filter Placement X-Ray 01/16/17 0000 Signed Impressions: Service Date/Time: Monday, January 16, 2017 10:36 - CONCLUSION: Uncomplicated inferior vena cava filter placement as above. Matthew Aguirre MD Chest X-Ray 01/15/17 0000 Signed Impressions: Service Date/Time: Sunday, January 15, 2017 14:51 - CONCLUSION: Decreasing densities in the right lung. Dk Benedict MD Lower Extremity Ultrasound 01/12/17 0000 Signed Impressions: Service Date/Time: Thursday, January 12, 2017 12:08 - CONCLUSION: 1. Deep venous thrombosis which is nonocclusive in the superficial femoral and popliteal veins. 2. Superficial venous thrombosis in the greatest saphenous vein. Tyler Nagy MD Abdomen/Pelvis CT 01/11/17 0000 Signed Impressions: Service Date/Time: Wednesday, January 11, 2017 20:00 - CONCLUSION: 1. Subacute hemorrhage of both adrenal glands, not significantly changed on the left, smaller on the right. 2. Increased/new pleural fluid at both bases, new, small ascites, new body wall edema/anasarca. 3. No evidence of bowel obstruction. Nasogastric tube coiled in the stomach. 4. Patchy airspace consolidation of the right lung base, new. Santos Arce MD Head Magnetic Resonance Angiography 01/05/17 0000 Signed Impressions: Service Date/Time: Thursday, January 05, 2017 14:37 - CONCLUSION: Normal examination. Esperanza Odell MD Abdomen MRI 01/05/17 Signed Impressions: Service Date/Time: Thursday, January 05, 2017 14:37 - CONCLUSION: The bilateral adrenal masses have developed since the CT abdomen from 01/02/2017 and the most likely etiologies includes bilateral adrenal hemorrhage or possibly reactive hyperplasia. The exact etiology is not certain. Esperanza Odell MD Head CT 01/04/17 0848 Signed Impressions: Service Date/Time: Wednesday, January 04, 2017 08:58 - CONCLUSION: Unremarkable examination for each. Tyler Nagy MD Neck CT 01/04/17 0000 Signed Impressions: Service Date/Time: Wednesday, January 04, 2017 20:49 - CONCLUSION: Questionable thickening of the vocal cords. These can be directly inspected. Otherwise the study appears grossly normal for a noncontrast CT of the neck. Santos Whitley MD Chest CT 01/04/17 0000 Signed Impressions: Service Date/Time: Wednesday, January 04, 2017 20:50 - CONCLUSION: 1. Mild bilateral pleural effusions with suspected accompanying areas of atelectasis or consolidation at the lung bases. 2. Coronary artery calcifications. Santos Whitley MD Brain MRI 01/04/17 Signed Impressions: Service Date/Time: Wednesday, January 04, 2017 21:19 - CONCLUSION: Atrophy and mild chronic white matter changes. No acute infarct or other acute intracranial abnormality. Santos Arce MD Laboratory Test 01/15/17 01/15/17 01/16/17 01/16/17 14:48 19:35 09:45 13:09 Blood Gas Puncture Site RT RADIAL Blood Gas Patient Temperature 98.6 Blood Gas HCO3 28 mmol/L Blood Gas Base Excess 4.5 mmol/L Blood Gas Oxygen Saturation 90 % Arterial Blood pH 7.48 Arterial Blood Partial 38 mmHg Pressure CO2 Arterial Blood Partial 57 mmHg Pressure O2 Arterial Blood Oxygen Content 14.3 Vol % Arterial Blood 1.4 % Carboxyhemoglobin Arterial Blood Methemoglobin 1.0 % Blood Gas Hemoglobin 11.3 G/DL Oxygen Delivery Device VENTILATOR Blood Gas Ventilator Setting CPAP/PEEP5/PS5 Blood Gas Inspired Oxygen 40 % Potassium Level 3.3 MEQ/L 3.2 MEQ/L White Blood Count 23.0 TH/MM3 Red Blood Count 3.56 MIL/MM3 Hemoglobin 11.1 GM/DL Hematocrit 32.2 % Mean Corpuscular Volume 90.3 FL Mean Corpuscular Hemoglobin 31.1 PG Mean Corpuscular Hemoglobin 34.5 % Concent Red Cell Distribution Width 16.7 % Platelet Count 292 TH/MM3 Mean Platelet Volume 8.6 FL Sodium Level 149 MEQ/L Chloride Level 111 MEQ/L Carbon Dioxide Level 30.4 MEQ/L Anion Gap 8 MEQ/L Blood Urea Nitrogen 80 MG/DL Creatinine 2.18 MG/DL Estimat Glomerular Filtration 30 ML/MIN Rate Random Glucose 92 MG/DL Calcium Level 9.0 MG/DL Lactic Acid Level 0.9 mmol/L Physical Examination HEENT: Normocephalic; atraumatic CHEST: Resp. even/unlabored, diminished bases CARDIAC: RRR ABDOMEN: Abdomen distended, nontender, bowel sounds are hypoactive EXTREMITIES:3-4 RLE edema SKIN: drsg rle MANAGER PSYCHIATRY: No focal deficits; alert and oriented to place and person, poor historian (Madelaine Velasquez) Assessment and Plan Plan ASSESSMENT: - Severe constipation/Ileus vs. PSBO. CT scan abdomen and pelvis with iv contrast (01/04/17)----> new abnormal bowel gas pattern of concern for distal small bowel obstruction. New bilateral adrenal masses which were not present 2 days ago, the differential includes adrenal hemorrhage and or hyperplasia, new small pleural effusions right greater than left, mild diverticulosis. GS was consulted for possible small bowel obstruction and they feel this is more an ileus, as they could not find any significant transition point or decompressed bowel on imaging. He is on a bowel regimen of colace and senokot. Rpt. CT abdomen and pelvis without iv contrast (01/11/17)---> subacute hemorrhage of both adrenal glands, not significantly changed on the left, smaller on the right, increased/new pleural fluid at both bases, new small ascites, new body wall edema/anasarca. No evidence of bowel obstruction. Nasogastric tube coiled in the stomach, patchy airspace consolidation of the right lung base, new. No BM during this hospitalization (01/04). On Senokot, Colace. Abdomen distended , hypoactive bowel sounds. NGT clamped- no n/v. Tolerating clears. Will get SBFT with gastrografin (diagnostic/therapeutic). SSE x 2. Reglan at reduced dose. Add Miralax. If no improvement, consider other laxatives (magnesium citrate/golytely) vs. relistor. At some point, would benefit from colonoscopy, as he has never had one before. - AMS/Encephalopathy, improved. - RLE DVT. Not a candidate for anticoagulation secondary to subacute hemorrhage of adrenal gland, s/p IVC filter. - Resp. Failure/Bronchospasm, s/p extubation. Per CCM - TIBURCIO with multiple electrolyte abnormalities. Creat 2.18 - Bilateral adrenal hemorrhoids. CT as above. Abdomen MRI (01/05/17)----> The bilateral adrenal masses have developed since the CT abdomen from 01/02/2017 and the most likely etiologies includes bilateral adrenal hemorrhage or possibly reactive hyperplasia. The exact etiology is not certain Hydrocortisone. PLAN: - Clear liquids - SBFT with gastrografin - Add miralax - Add reglan at reduced dose - Cont. Colace - Cont. Senokot - SSE x 2 - Supportive care - Further recommendations to follow based on results of above - Ideally, he would benefit from colonoscopy once stable, as he has never had one - Pt seen and examined by Dr. Madrigal and myself and this note is written on his behalf (Madelaine Velasquez) Physician Comments seen, examined agree with above having large amount of stool at this point (Mary Madrigal MD) RonMadelaine Katharina SANCHEZ January 16, 2017 15:04 Mary Madrigal MD January 16, 2017 19:27
[2017-01-16] MEDS ORDERED: DIATRIZOATE MEGLUM/DIATRIZOATE SOD 120 ML BTL (for RAD DIAG) NG ONE (16:26)
[2017-01-16] MEDS: ARTIFICIAL TEARS OPTH SOLN 15 ML BTL EACH EYE SCH (19:00)
[2017-01-16] MEDS: METOCLOPRAMIDE HCL 10 MG/2 ML VIAL IV PUSH SCH (23:10)
[2017-01-17] VITALS (12 sets, daily range): BP systolic 130–194; BP diastolic 75–95; PULSE 74–109; RESP 14–20; TEMP 97.3–99.3; O2SAT 96–98
[2017-01-17] MEDS: CHLORHEXIDINE GLUCONATE 2 % 1 PACK (2 CLOTHS) TOP SCH (03:51)
[2017-01-17] MEDS: RESP: ALBUTEROL 2.5 MG/IPRATROPIUM 0.5 MG NEB (SCH) NEB ×4 (04:29→21:13)
[2017-01-17] MEDS: hydrALAZINE HCL 20 MG/ML VIAL IV PUSH PRN ×2 (05:23→07:20)
[2017-01-17] MEDS: METOCLOPRAMIDE HCL 10 MG/2 ML VIAL IV PUSH SCH ×3 (05:23→21:35)
[2017-01-17] MEDS: HYDROCORTISONE SOD SUCCINATE 100 MG VIAL IV PUSH SCH ×3 (05:23→21:37)
[2017-01-17] MEDS: INSULIN NovoLIN REGULAR SUPPLEMENTAL SCALE SQ SCH ×4 (05:46→21:54)
[2017-01-17 06:10] LABS: AUTOMATED NEUTROPHIL # 18.7 TH/MM3 (1.8-7.7); BASOPHIL # 0.1 TH/MM3 (0-0.2); BASOPHIL % 0.3 % (0.0-2.0); EOSINOPHIL # 0.1 TH/MM3 (0-0.4); EOSINOPHIL % 0.4 % (0.0-4.0); HEMATOCRIT 30.4 % (39.0-51.0); HEMO FLAGS DIFF FINAL; LYMPH % 3.6 % (9.0-44.0); LYMPHOCYTE # 0.7 TH/MM3 (1.0-4.8); MEAN CELL VOLUME 91.1 FL (80.0-100.0); MEAN CORPUSCULAR HEMOGLOBIN 29.8 PG (27.0-34.0); MEAN CORPUSCULAR HGB CONC 32.7 % (32.0-36.0); MONO % 4.9 % (0.0-8.0); NEUT % 90.8 % (16.0-70.0); PLATELET COUNT 210 TH/MM3 (150-450); RED BLOOD COUNT 3.34 MIL/MM3 (4.50-5.90); RED CELL DISTRIBUTION WIDTH 16.9 % (11.6-17.2); WHITE BLOOD COUNT 20.6 TH/MM3 (4.0-11.0)
[2017-01-17 06:23] LABS: BICARBONATE 29.5 MEQ/L (21.0-32.0); POTASSIUM 3.5 MEQ/L (3.5-5.1)
[2017-01-17] MEDS: CHLORHEXIDINE 0.12% (ORAL KIT) 15 ML CUP MT SCH ×2 (08:00→20:00)
--- NOTE | 2017-01-17 08:15 | RADRPT ---
EXAM DATE/TIME: 01/16/2017 15:58 [facility] COMPARISON: No previous studies available for comparison. INDICATIONS : Obstruction. FLUORO TIME: 0 minutes IMAGE COUNT: 14 CONTRAST: Gastrojenna IMAGING TIME(S): 15 min, 30 min, 45 min, 1 hr, 1.5 hrs, 3.5 hrs12.5 hrs MEDICAL HISTORY : Deep venous thrombosis. Hypertension. SURGICAL HISTORY : Hernia. ENCOUNTER: Initial ACUITY: 3 days PAIN SCORE: 10/10 LOCATION: Bilateral abdomen. FINDINGS: Preliminary film demonstrates inferior vena cava filter at L2-3 level. Nasogastric tube with tip in s tomach. The stomach is grossly unremarkable. Examination of the small bowel demonstrates normal mucosal pattern involving the jejunum and ileum. There is no evidence of mass or obstruction. No intraluminal filling defects are identified. Small bowel transit time is normal at 90 minutes. CONCLUSION: Unremarkable small bowel examination. Dk Benedict MD on January 17, 2017 at 8:11 Board Certified Radiologist. This report was verified electronically.
[2017-01-17] MEDS: FOLIC ACID 1 MG TAB PO SCH (08:32)
[2017-01-17] MEDS: POLYETHYLENE GLYCOL 17 GM PKG PO SCH (08:32)
[2017-01-17] MEDS: MULTIVITAMIN TAB PO SCH (08:32)
[2017-01-17] MEDS: METOPROLOL TARTRATE 25 MG TAB PO SCH ×2 (08:32→21:32)
[2017-01-17] MEDS: PANTOPRAZOLE SODIUM 40 MG VIAL IV SCH (08:32)
[2017-01-17] MEDS: THIAMINE INJ 100 MG in SODIUM CHLORIDE 0.9% INJ 100 ML IV SCH (08:32)
[2017-01-17] MEDS: DOCUSATE SODIUM 100 MG CAP PO SCH ×2 (08:32→21:32)
[2017-01-17] MEDS: SODIUM CHLORIDE 0.9% FLUSH 10 ML FLUSH IV FLUSH SCH ×2 (08:33→21:47)
[2017-01-17] MEDS: ARTIFICIAL TEARS OPTH SOLN 15 ML BTL EACH EYE SCH ×3 (09:00→18:00)
[2017-01-17] MEDS: POTASSIUM CHLOR 40 MEQ PREMIX 100 ML IV PRN (09:31)
--- NOTE | 2017-01-17 10:15 | HHI.CCPN ---
Subjective Remarks/Hospital Course 76-year-old Male. Date of Admission 01/04/2017. 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 This Is 5 x 5 Cm. Covered in Blue Bandage. Patient Presents to [facility] after Being Discharged 01/02 with Altered Mental Status. 01/[address] abdomen pelvis which showed induration of the right kidney possibly past of possible pyelonephritis. UA was negative for infection. 2 cm cyst at the left kidney pole. Sigmoid diverticulosis. Degenerative disc disease lumbar spine. Patient did have a low-sodium 126 at that time.at that time, he was complaining of severe bilateral flank pain. Was associated after eating greasy food at [facility]. Associated with nausea and vomiting Saturday and Saturday prior to admission. He felt better the next morning was sent home on Levaquin. Day, patient was found confused and altered by his roommate this morning. Was transferred to [facility]. CT abdomen and pelvis revealed a right-sided 3.6 x 2.5 cm left 2.5 adrenal mass. Possible hemorrhage. Dilated esophagus with thickening, and dilated stomach, colon diverticula. Possible small bowel obstruction. NG tube was placed with 800cc brown gastric contents removed. /general surgery was consulted and has seen the patient for possible small bowel obstruction. Patient is room air, hypertensive requiring 40 mg labetalol. 01/05: Patient more agitated with fever 102, tachycardia worse, and diffuse wheezing, labored respiratory effort. Na 116. Received 100 ml 3% saline, lasix 40 mg, intubation and ventilation. Head CT and MRI normal aside from atrophy. 01/06: Tmax 98.7. Continued elevation in WBC count. ID consult to Dr. Salinas following, Flagyl was added to medication regime yesterday. The patient was placed on a 2% sodium infusion for hyponatremia. Coagulant studies still pending, no growth from blood cultures will obtain sputum culture today. Patient continues on vasopressor support requiring Phenylephrine. 01/07 Tmax 98.8. The patient went into A. fib RVR last night heart rate 150's, phenylephrine was increased, currently in A. fib rate controlled 90's. Phenylephrine continues to be infused at 60 mcgs. Sodium level 134, 2% sodium infusion discontinued. 01/08: Tachycardia persists. Renal function acceptable, lytes require repletion , add K. 01/09: Tolerating CPAP trails with PS 10. BP 220/145. Convert to precedex, attempt to extubated. 01/10: On Precedex and fentanyl infusions to facilitate weaning trials. Remains fluid overloaded. Approximately 15 KG up. Will start Bumex today with IV albumin. 01/11: White count rising, new right lung infiltrate. 01/12: Generalized edema worse. Will proceed with gentle diuresis. CXR with right infiltrate and bilateral pulmonary venous congestion. 01/13: Tolerating SBT, sats acceptable. Very anxious. Will extubate. 01/14: Remains intubated sedated. Urine output excellent on Lasix drip, creatinine has increased to 2.3. I will discontinue Lasix drip. We'll resume Precedex to facilitate ventilator weaning. Failed extubation yesterday 01/15: Intubated off sedation, tolerating CPAP. Creat 2.4 slightly increased. UO 2.3 L in 24 hours 01/16: Extubated yesterday, tolerating well. Getting IVC filter today. Patient competent to make his own decisions and consented for IVC filter 01/17: Remains on nasal cannula. Not in any acute distress. Underwent IVC filter placement yesterday. Objective Vital Signs Date Time Temp Pulse Resp B/P Pulse Ox O2 Delivery O2 Flow Rate FiO2 01/17/17 09:47 96 Nasal Cannula 3.00 01/17/17 08:00 99.3 84 20 168/86 01/16/17 05:10 40 Intake and Output 01/16/17 01/16/17 01/17/17 08:00 16:00 00:00 Intake Total 840 ml 60 ml Output Total 475 ml 435 ml Balance -475 ml 840 ml -375 ml Result Diagram: 01/17/17 0526 01/17/17 05 Other Results MTHFR gene mutation heterozygous state with 2 abnormal genes Antiphospholipid U serene antibody titer high (equivocal) Lupus anticoagulant 46 (abnormal) Imaging Last Impressions Chest X-Ray 01/07/17 0000 Signed Impressions: Service Date/Time: Saturday, January 07, 2017 01:13 - CONCLUSION: 1. Cardiomegaly. Left lower lobe atelectasis versus pneumonia. 2. Cardiomegaly and findings of vascular congestion without overt failure. There has been no significant change when compared to the prior exam. Aneudy Dennis MD Head Magnetic Resonance Angiography 01/05/17 Signed Impressions: Service Date/Time: Thursday, January 05, 2017 14:37 - CONCLUSION: Normal examination. Esperanza Odell MD Abdomen MRI 01/05/17 Signed Impressions: Service Date/Time: Thursday, January 05, 2017 14:37 - CONCLUSION: The bilateral adrenal masses have developed since the CT abdomen from 01/02/2017 and the most likely etiologies includes bilateral adrenal hemorrhage or possibly reactive hyperplasia. The exact etiology is not certain. Esperanza Odell MD Head CT 01/04/17 0848 Signed Impressions: Service Date/Time: Wednesday, January 04, 2017 08:58 - CONCLUSION: Unremarkable examination for each. Tyler Nagy MD Neck CT 01/04/17 Signed Impressions: Service Date/Time: Wednesday, January 04, 2017 20:49 - CONCLUSION: Questionable thickening of the vocal cords. These can be directly inspected. Otherwise the study appears grossly normal for a noncontrast CT of the neck. Santos Whitley MD Lower Extremity Ultrasound 01/04/17 Signed Impressions: Service Date/Time: Wednesday, January 04, 2017 18:55 - CONCLUSION: Partially occlusive thrombus in the right superficial femoral, popliteal and peroneal veins. No thrombus is seen on the left side. Santos Whitley MD Chest CT 01/04/17 Signed Impressions: Service Date/Time: Wednesday, January 04, 2017 20:50 - CONCLUSION: 1. Mild bilateral pleural effusions with suspected accompanying areas of atelectasis or consolidation at the lung bases. 2. Coronary artery calcifications. Santos Whitley MD Brain MRI 01/04/17 Signed Impressions: Service Date/Time: Wednesday, January 04, 2017 21:19 - CONCLUSION: Atrophy and mild chronic white matter changes. No acute infarct or other acute intracranial abnormality. Santos Arce MD Abdomen/Pelvis CT 01/04/17 Signed Impressions: Service Date/Time: Wednesday, January 04, 2017 10:32 - CONCLUSION: 1. New abnormal bowel gas pattern of concern for distal small bowel obstruction. 2. New bilateral adrenal masses which were not present 2 days ago. The differential includes adrenal hemorrhage and/or hyperplasia. 3. New small pleural effusions right greater than left. 4. Mild diverticulosis. Tyler Nagy MD Last Impressions Head CT 01/04/17 0848 Signed Impressions: Service Date/Time: Wednesday, January 04, 2017 08:58 - CONCLUSION: Unremarkable examination for each. Tyler Nagy MD Chest X-Ray 01/04/17 0000 Signed Impressions: Service Date/Time: Wednesday, January 04, 2017 08:59 - CONCLUSION: No acute disease. There is no evidence of pneumonia. Tyler Nagy MD Abdomen/Pelvis CT 01/04/17 0000 Signed Impressions: Service Date/Time: Wednesday, January 04, 2017 10:32 - CONCLUSION: 1. New abnormal bowel gas pattern of concern for distal small bowel obstruction. 2. New bilateral adrenal masses which were not present 2 days ago. The differential includes adrenal hemorrhage and/or hyperplasia. 3. New small pleural effusions right greater than left. 4. Mild diverticulosis. Tyler Nagy MD Objective Remarks P/E GENERAL: 76-year-old male, now on NC. Edematous. SKIN: Warm, flushed, damp. Chronic venous stasis wound HEAD: Atraumatic. Normocephalic. EYES: Pupils equal and round about 2 mm bilaterally, reactive. ENT: No nasal bleeding or discharge. Mucous membranes pink and moist. NECK: Trachea midline. CARDIOVASCULAR: S1, S2 normal. No S4. rate 80s, RESPIRATORY: On NC. Right rhonchi. No wheezes. GASTROINTESTINAL: Abdomen remains distended. No guarding. Nontender. Active bowel sounds are appreciated NG tube to LIS MUSCULOSKELETAL: Bilateral lower extremity edema. R>L NEUROLOGICAL: Oriented to person and to place, opens eyes, follows commands. Date of Insertion: Jan 04, 2017 Date of Insertion: Jan 04, 2017 Side: Left Location: Subclavian A/P Assessment and Plan Neuro/Psych: Acute toxic metabolic encephalopathy-resolving History of EtOH Depression/anxiety off sedation. CT head 01/04 reveals no acute intracranial abnormalities Holding bupropion 150 mg by mouth daily, Hold Ultram and Percocet with altered mental status currently Thiamine/folate/multivitamin daily with EtOH use MRI/A brain 01/05- normal exam Monitor for alcohol withdrawal-seizure precautions CV: Right lower extremity DVT Fluid overload Hypertension As needed hydralazine/labetalol/Nitropaste to maintain systolic blood pressure was 160 Home medication of Lopressor 25 mg BID- on hold, resume today 01/16 01/05 right lower extremity Dopplers ultrasound for DVT-partially occlusive thrombus right SFA, popliteal and peroneal veins Status post IVC filter placement on 01/16 he did start anticoagulation with heparin if okay with hematology Resp: Acute hypoxic respiratory failure requiring intubation Extubated 01/15/17 tolerating well Required intubation 01/05 for labored breathing due to bronchospasm. Extubated 01/13 but had to be reintubated GI: Ileus CT abd/pelvis 01/04 revealed right 3.6 x 2.4 cm and left 2.5 x 1.4 cm adrenal masses. Distal esophagus with thickening. Dilated stomach. Colonic Diverticuli. Compressed colon. Possible bowel obstruction. Dr. Saleh/general surgery consulted-medical management at this time. Small bowel follow-through done on 01/16 was unremarkable. MRI suggested bilateral adrenal hemorrhage - hypercoagulable workup in progress and being followed by hematology. Negative ultrasound gallbladder 01/02 Renal: Acute kidney injury Proteinuria Patient states he needed kidney biopsy in past but refused Follow-up a.m. BMP Accurate I's and O's Monitor urine output ADH elevated, ACTH normal range Endo: B/L adrenal hemorrhage See CT abdomen/pelvis, MRI abdomen results Follow-up on adrenal insufficiency workup. Positive antiphospholipid use Silvadene antibody, heterozygous state for MTHFR gene mutation, abnormal lupus anticoagulant test ADH elevated, ACTH normal range Noted hypertensive. Potassium normal. Continue hydrocortisone 50 mg 3 times a day, consider wean to PO Prednisone tomorrow. Sliding-scale insulin with Accu-Cheks to maintain euglycemia/low regimen Heme: Leukocytosis Thrombocytosis Chronic Xarelto use Left lower extremity DVT Unable to anticoagulate for LE DVT due to adrenal hemorrhage s/p IR for IVC filter placement today 01/16/17 MTFHR gene mutation positive, phosphatidylserine antibody titer elevated, lupus anticoagulant test abnormal. Hematology to decide regarding resuming heparin for full anticoagulation. Follow CBC name. Monitor trends. Doubt infectious etiology. ID Dr. Salinas UA negative. Procalcitonin normal ID: Currently observing off on antibiotics Monitor for infection Pertinent cultures 01/04 - blood cultures 2 - negative 01/04 - UA - negative 01/02 - blood cultures 2 - negative FEN: Hyponatremia - hypoosmolar 01/04 Cortisol level equivocal/F/u on cosyntropin test TSH was 1.12. Uric acid 3.0. f/u Lipid panel 2% NaCl infusion-discontinued Continue 0.9 sodium chloride at 84 cc/hour-DCd now due to fluid overload Continue every 6 hours sodium level monitoring MSK: Right lower extremity wound Wound care evaluation Access - Utilize peripheral IV. Left subclavian 01/04. Radial a line removed 2 in 2 days , secondary to clotting Prophylaxis - GI - Protonix - DVT - SCD/holding Xarelto in light of possible adrenal hemorrhage. IVC filter 01/16/17. Will initiate subcutaneous heparin 5000 units every 8 hourly initially , if tolerated hematology to decide regarding advancing to full anticoagulation. Consult and transfer to hospitalist service for further medical management. Will transfer patient out of ICU. Critical care will be signing off, please reconsult if needed. Kwasi Chahal MD January 17, 2017 10:15
--- NOTE | 2017-01-17 10:19 | HHI.PR ---
Subjective Subjective Notes Up to chair Had multiple BMs overnight Likes purple popsicles Objective Vitals/I&O Vital Signs Date Time Temp Pulse Resp B/P Pulse Ox O2 Delivery O2 Flow Rate FiO2 01/17/17 09:47 96 Nasal Cannula 3.00 01/17/17 08:00 99.3 84 20 168/86 01/16/17 05:10 40 Labs Laboratory Tests Test 01/16/17 01/17/17 13:09 05:26 Lactic Acid Level 0.9 White Blood Count 20.6 Red Blood Count 3.34 Hemoglobin 10.0 Hematocrit 30.4 Mean Corpuscular Volume 91.1 Mean Corpuscular Hemoglobin 29.8 Mean Corpuscular Hemoglobin 32.7 Concent Red Cell Distribution Width 16.9 Platelet Count 210 Mean Platelet Volume 8.6 Neutrophils (%) (Auto) 90.8 Lymphocytes (%) (Auto) 3.6 Monocytes (%) (Auto) 4.9 Eosinophils (%) (Auto) 0.4 Basophils (%) (Auto) 0.3 Neutrophils # (Auto) 18.7 Lymphocytes # (Auto) 0.7 Monocytes # (Auto) 1.0 Eosinophils # (Auto) 0.1 Basophils # (Auto) 0.1 CBC Comment DIFF FINAL Differential Comment Sodium Level 150 Potassium Level 3.5 Chloride Level 114 Carbon Dioxide Level 29.5 Anion Gap 7 Blood Urea Nitrogen 77 Creatinine 2.23 Estimat Glomerular Filtration 29 Rate Random Glucose 135 Calcium Level 9.1 Cardiovascular: Regular Lungs: Clear Abdomen: Non-tender, Other (mildly distended ) Extremities: No edema A/P Assessment and Plan 76 year old male, MOSF; likely ileus secondary to medical conditions -Stable on NC -SBFT unremarkable -Abdominal exam improved from last week -DC NGT; start clears -Advance diet as tolerated -+BM -Discussed with ANANT Zepeda -No acute surgical needs at this time Attending Statement The exam, history, and the medical decision-making described in the above note were completed with the assistance of the mid-level provider. I reviewed and agree with the findings presented. I attest that I had a [id number] encounter with the patient on the same day, and personally performed and documented my assessment and findings in the medical record. Abdominal exam stable, no tenderness on exam, no rebound tenderness or peritonitis Nancy Benson [facility] January 17, 2017 10:19 Bharat Saleh MD February 05, 2017 16:36
[2017-01-17] MEDS: HEPARIN SODIUM - SQ 10,000 UNITS/ML VIAL SQ SCH ×3 (11:39→21:36)
--- NOTE | 2017-01-17 16:47 | HHI.IDPN ---
Subjective Subjective Remarks remains on NV O2 afebrile large volume diarrhea Lactic acid low, procalcitonin borderline Antibiotics none Allergies: Coded Allergies: No Known Allergies (Unverified , 01/02/17) Objective . Vital Signs Date Time Temp Pulse Resp B/P Pulse Ox O2 Delivery O2 Flow Rate FiO2 01/17/17 16:10 97.9 101 20 194/91 98 01/17/17 15:00 98 Nasal Cannula 2.00 01/17/17 12:00 91 01/17/17 12:00 97.3 91 19 159/82 97 01/17/17 09:47 96 Nasal Cannula 3.00 01/17/17 08:00 99.3 84 20 168/86 97 01/17/17 08:00 84 01/17/17 08:00 97 Nasal Cannula 3.00 01/17/17 06:00 90 01/17/17 04:00 98.4 74 14 155/95 98 01/17/17 04:00 94 01/17/17 02:00 89 01/17/17 00:00 99.0 83 18 130/75 97 01/17/17 00:00 86 01/16/17 22:00 88 01/16/17 20:00 88 01/16/17 20:00 99.3 95 19 182/92 97 01/16/17 19:00 95 Nasal Cannula 3.00 01/16/17 01/16/17 01/17/17 15:00 23:00 07:00 Intake Total 840 ml 60 ml 123 ml Output Total 435 ml 900 ml Balance 840 ml -375 ml -777 ml Intake Oral 840 ml 60 ml IV Total 123 ml Output Urine Total 435 ml 400 ml Stool Total 500 ml # Bowel Movements 5 . Laboratory Tests Test 01/16/17 01/17/17 09:45 05:26 White Blood Count 23.0 TH/MM3 20.6 TH/MM3 Red Blood Count 3.56 MIL/MM3 3.34 MIL/MM3 Hemoglobin 11.1 GM/DL 10.0 GM/DL Hematocrit 32.2 % 30.4 % Mean Corpuscular Volume 90.3 FL 91.1 FL Mean Corpuscular Hemoglobin 31.1 PG 29.8 PG Mean Corpuscular Hemoglobin 34.5 % 32.7 % Concent Red Cell Distribution Width 16.7 % 16.9 % Platelet Count 292 TH/MM3 210 TH/MM3 Mean Platelet Volume 8.6 FL 8.6 FL Neutrophils (%) (Auto) 90.8 % Lymphocytes (%) (Auto) 3.6 % Monocytes (%) (Auto) 4.9 % Eosinophils (%) (Auto) 0.4 % Basophils (%) (Auto) 0.3 % Neutrophils # (Auto) 18.7 TH/MM3 Lymphocytes # (Auto) 0.7 TH/MM3 Monocytes # (Auto) 1.0 TH/MM3 Eosinophils # (Auto) 0.1 TH/MM3 Basophils # (Auto) 0.1 TH/MM3 CBC Comment DIFF FINAL Differential Comment Laboratory Tests Test 01/15/17 01/16/17 01/16/17 01/17/17 19:35 09:45 13:09 05:26 Potassium Level 3.3 MEQ/L 3.2 MEQ/L 3.5 MEQ/L Sodium Level 149 MEQ/L 150 MEQ/L Chloride Level 111 MEQ/L 114 MEQ/L Carbon Dioxide Level 30.4 MEQ/L 29.5 MEQ/L Anion Gap 8 MEQ/L 7 MEQ/L Blood Urea Nitrogen 80 MG/DL 77 MG/DL Creatinine 2.18 MG/DL 2.23 MG/DL Estimat Glomerular Filtration 30 ML/MIN 29 ML/MIN Rate Random Glucose 92 MG/DL 135 MG/DL Calcium Level 9.0 MG/DL 9.1 MG/DL Procalcitonin 0.51 ng/mL Lactic Acid Level 0.9 mmol/L Imaging Last Impressions Small Bowel X-Ray 01/16/17 0000 Signed Impressions: Service Date/Time: Monday, January 16, 2017 15:58 - CONCLUSION: Unremarkable small bowel examination. Dk Benedict MD IVC Filter Placement X-Ray 01/16/17 0000 Signed Impressions: Service Date/Time: Monday, January 16, 2017 10:36 - CONCLUSION: Uncomplicated inferior vena cava filter placement as above. Matthew Aguirre MD Chest X-Ray 01/15/17 0000 Signed Impressions: Service Date/Time: Sunday, January 15, 2017 14:51 - CONCLUSION: Decreasing densities in the right lung. Dk Benedict MD Lower Extremity Ultrasound 01/12/17 0000 Signed Impressions: Service Date/Time: Thursday, January 12, 2017 12:08 - CONCLUSION: 1. Deep venous thrombosis which is nonocclusive in the superficial femoral and popliteal veins. 2. Superficial venous thrombosis in the greatest saphenous vein. Tyler Nagy MD Abdomen/Pelvis CT 01/11/17 Signed Impressions: Service Date/Time: Wednesday, January 11, 2017 20:00 - CONCLUSION: 1. Subacute hemorrhage of both adrenal glands, not significantly changed on the left, smaller on the right. 2. Increased/new pleural fluid at both bases, new, small ascites, new body wall edema/anasarca. 3. No evidence of bowel obstruction. Nasogastric tube coiled in the stomach. 4. Patchy airspace consolidation of the right lung base, new. Santos Arce MD Head Magnetic Resonance Angiography 01/05/17 Signed Impressions: Service Date/Time: Thursday, January 05, 2017 14:37 - CONCLUSION: Normal examination. Esperanza Odell MD Abdomen MRI 01/05/17 Signed Impressions: Service Date/Time: Thursday, January 05, 2017 14:37 - CONCLUSION: The bilateral adrenal masses have developed since the CT abdomen from 01/02/2017 and the most likely etiologies includes bilateral adrenal hemorrhage or possibly reactive hyperplasia. The exact etiology is not certain. Esperanza Odell MD Head CT 01/04/17 0848 Signed Impressions: Service Date/Time: Wednesday, January 04, 2017 08:58 - CONCLUSION: Unremarkable examination for each. Tyler Nagy MD Neck CT 01/04/17 Signed Impressions: Service Date/Time: Wednesday, January 04, 2017 20:49 - CONCLUSION: Questionable thickening of the vocal cords. These can be directly inspected. Otherwise the study appears grossly normal for a noncontrast CT of the neck. Santos Whitley MD Chest CT 01/04/17 Signed Impressions: Service Date/Time: Wednesday, January 04, 2017 20:50 - CONCLUSION: 1. Mild bilateral pleural effusions with suspected accompanying areas of atelectasis or consolidation at the lung bases. 2. Coronary artery calcifications. Santos Whitley MD Brain MRI 01/04/17 Signed Impressions: Service Date/Time: Wednesday, January 04, 2017 21:19 - CONCLUSION: Atrophy and mild chronic white matter changes. No acute infarct or other acute intracranial abnormality. Santos Arce MD Physical Exam CONSTITUTIONAL/GENERAL: This is an adequately nourished patient, on NC O2 TUBES/LINES/DRAINS: SKIN: No jaundice, rashes, or lesions.Vitiligo involving hands, feet primarily Anansarca HEAD: Atraumatic. Normocephalic. EYES: Pupils equal and round and reactive. Extraocular motions intact. No scleral icterus. No injection or drainage. Fundi not examined. CARDIOVASCULAR: Regular rate and rhythm without murmurs, gallops, or rubs. No JVD. Peripheral pulses symmetric. RESPIRATORY/CHEST: Symmetric, unlabored respirations. Rhonchi to auscultation. Breath sounds equal bilaterally. No wheezes, rales, or rhonchi. GASTROINTESTINAL: Abdomen soft, no reaction to palpation, not distended. no tympany to palpation hypoactive bowel sounds. GENITOURINARY: Without palpable bladder distension. Parada catheter in place with clear yellow urine MUSCULOSKELETAL: Extremities without clubbing, cyanosis, + 3 prominent edema. Extremeties perfused . No calf tenderness. No mottling or clubbing. NEUROLOGICAL: awake alert follows commands PSYCHIATRIC: calm and cooperative Assessment & Plan Remarks Assessment and Plan Sepsis - source is likley intra- abdominal: small bowel obstruction vs ileus - transition zone present - distal esophagus thickening ? significance repeat CT a/p wo acute pathology Acute VDRF: resolved - leukocytosis, leukemoid reaction - persistent but better today - TIBURCIO ? vnco contributing ? new right lower lobe pneumonia - clx is no growth Right lower extremity DVT Status post IVC filter placement on 01/16 REC's: -stool for c.diff - monitor clinically wanda RN Ilana Orozco Dr, MD January 17, 2017 16:47
--- NOTE | 2017-01-17 17:43 | HHI.GIFU ---
Subjective Remarks Resting in bed. No n/v. Tolerating clears. Multiple bowel movements. (Madelaine Velasquez) Objective Vitals I&O Vital Signs Date Time Temp Pulse Resp B/P Pulse Ox O2 Delivery O2 Flow Rate FiO2 01/17/17 16:10 97.9 101 20 194/91 98 01/17/17 15:00 98 Nasal Cannula 2.00 01/17/17 12:00 91 01/17/17 12:00 97.3 91 19 159/82 97 01/17/17 09:47 96 Nasal Cannula 3.00 01/17/17 08:00 99.3 84 20 168/86 97 01/17/17 08:00 84 01/17/17 08:00 97 Nasal Cannula 3.00 01/17/17 06:00 90 01/17/17 04:00 98.4 74 14 155/95 98 01/17/17 04:00 94 01/17/17 02:00 89 01/17/17 00:00 99.0 83 18 130/75 97 01/17/17 00:00 86 01/16/17 22:00 88 01/16/17 20:00 88 01/16/17 20:00 99.3 95 19 182/92 97 01/16/17 19:00 95 Nasal Cannula 3.00 I/O 01/16/17 01/16/17 01/16/17 01/17/17 01/17/17 01/17/17 07:00 15:00 23:00 07:00 15:00 23:00 Intake Total 840 ml 60 ml 123 ml 1860 ml Output Total 475 ml 435 ml 900 ml 750 ml Balance -475 ml 840 ml -375 ml -777 ml 1110 ml Intake Oral 840 ml 60 ml 1860 ml IV Total 123 ml Output Urine Total 475 ml 435 ml 400 ml 550 ml Stool Total 500 ml 200 ml # Bowel Movements 5 Laboratory Laboratory Tests Test 01/17/17 05:26 White Blood Count 20.6 Red Blood Count 3.34 Hemoglobin 10.0 Hematocrit 30.4 Mean Corpuscular Volume 91.1 Mean Corpuscular Hemoglobin 29.8 Mean Corpuscular Hemoglobin 32.7 Concent Red Cell Distribution Width 16.9 Platelet Count 210 Mean Platelet Volume 8.6 Neutrophils (%) (Auto) 90.8 Lymphocytes (%) (Auto) 3.6 Monocytes (%) (Auto) 4.9 Eosinophils (%) (Auto) 0.4 Basophils (%) (Auto) 0.3 Neutrophils # (Auto) 18.7 Lymphocytes # (Auto) 0.7 Monocytes # (Auto) 1.0 Eosinophils # (Auto) 0.1 Basophils # (Auto) 0.1 CBC Comment DIFF FINAL Differential Comment Sodium Level 150 Potassium Level 3.5 Chloride Level 114 Carbon Dioxide Level 29.5 Anion Gap 7 Blood Urea Nitrogen 77 Creatinine 2.23 Estimat Glomerular Filtration 29 Rate Random Glucose 135 Calcium Level 9.1 Imaging Last Impressions Small Bowel X-Ray 01/16/17 Signed Impressions: Service Date/Time: Monday, January 16, 2017 15:58 - CONCLUSION: Unremarkable small bowel examination. Dk Benedict MD IVC Filter Placement X-Ray 01/16/17 Signed Impressions: Service Date/Time: Monday, January 16, 2017 10:36 - CONCLUSION: Uncomplicated inferior vena cava filter placement as above. Matthew Aguirre MD Chest X-Ray 01/15/17 Signed Impressions: Service Date/Time: Sunday, January 15, 2017 14:51 - CONCLUSION: Decreasing densities in the right lung. Dk Benedict MD Lower Extremity Ultrasound 01/12/17 Signed Impressions: Service Date/Time: Thursday, January 12, 2017 12:08 - CONCLUSION: 1. Deep venous thrombosis which is nonocclusive in the superficial femoral and popliteal veins. 2. Superficial venous thrombosis in the greatest saphenous vein. Tyler Nagy MD Abdomen/Pelvis CT 01/11/17 Signed Impressions: Service Date/Time: Wednesday, January 11, 2017 20:00 - CONCLUSION: 1. Subacute hemorrhage of both adrenal glands, not significantly changed on the left, smaller on the right. 2. Increased/new pleural fluid at both bases, new, small ascites, new body wall edema/anasarca. 3. No evidence of bowel obstruction. Nasogastric tube coiled in the stomach. 4. Patchy airspace consolidation of the right lung base, new. Santos Arce MD Head Magnetic Resonance Angiography 01/05/17 Signed Impressions: Service Date/Time: Thursday, January 05, 2017 14:37 - CONCLUSION: Normal examination. Esperanza Odell MD Abdomen MRI 01/05/17 0000 Signed Impressions: Service Date/Time: Thursday, January 05, 2017 14:37 - CONCLUSION: The bilateral adrenal masses have developed since the CT abdomen from 01/02/2017 and the most likely etiologies includes bilateral adrenal hemorrhage or possibly reactive hyperplasia. The exact etiology is not certain. Esperanza Odell MD Head CT 01/04/17 0848 Signed Impressions: Service Date/Time: Wednesday, January 04, 2017 08:58 - CONCLUSION: Unremarkable examination for each. Tyler Nagy MD Neck CT 01/04/17 0000 Signed Impressions: Service Date/Time: Wednesday, January 04, 2017 20:49 - CONCLUSION: Questionable thickening of the vocal cords. These can be directly inspected. Otherwise the study appears grossly normal for a noncontrast CT of the neck. Santos Whitley MD Chest CT 01/04/17 0000 Signed Impressions: Service Date/Time: Wednesday, January 04, 2017 20:50 - CONCLUSION: 1. Mild bilateral pleural effusions with suspected accompanying areas of atelectasis or consolidation at the lung bases. 2. Coronary artery calcifications. Santos Whitley MD Brain MRI 01/04/17 0000 Signed Impressions: Service Date/Time: Wednesday, January 04, 2017 21:19 - CONCLUSION: Atrophy and mild chronic white matter changes. No acute infarct or other acute intracranial abnormality. Santos Arce MD Physical Exam HEENT: Normocephalic; atraumatic CHEST: Resp. 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 PSBO. CT scan abdomen and pelvis with iv contrast (01/04/17)----> new abnormal bowel gas pattern of concern for distal small bowel obstruction. New bilateral adrenal masses which were not present 2 days ago, the differential includes adrenal hemorrhage and or hyperplasia, new small pleural effusions right greater than left, mild diverticulosis. was consulted for possible small bowel obstruction and they feel this is more an ileus, as they could not find any significant transition point or decompressed bowel on imaging. He is on a bowel regimen of colace and senokot. Rpt. CT abdomen and pelvis without iv contrast (01/11/17)---> subacute hemorrhage of both adrenal glands, not significantly changed on the left, smaller on the right, increased/new pleural fluid at both bases, new small ascites, new body wall edema/anasarca. No evidence of bowel obstruction. Nasogastric tube coiled in the stomach, patchy airspace consolidation of the right lung base, new. GI consulted for severe constipation/ileus vs. PSBO. S/P SBFT (01/16/17)-----> Unremarkable small bowel examination. SSE x 2. Reglan at reduced dose. Miralax. At some point, would benefit from colonoscopy, as he has never had one before. - AMS/Encephalopathy, improved. - RLE DVT. Not a candidate for anticoagulation secondary to subacute hemorrhage of adrenal gland, s/p IVC filter. - Resp. Failure/Bronchospasm, s/p extubation. Per CCM - TIBURCIO with multiple electrolyte abnormalities. - Bilateral adrenal hemorrhoids. CT as above. Abdomen MRI (01/05/17)----> The bilateral adrenal masses have developed since the CT abdomen from 01/02/2017 and the most likely etiologies includes bilateral adrenal hemorrhage or possibly reactive hyperplasia. The exact etiology is not certain Hydrocortisone. PLAN: - Soft heart healthy diet - S/P SBFT- good results - Miralax - Reglan - Colace - Senokot - Supportive care - Further recommendations to follow based on results of above - Ideally, he would benefit from colonoscopy once stable, as he has never had one - Pt seen and examined by Dr. Madrigal and myself and this note is written on his behalf (Madelaine Velasquez) Madelaine Velasquez January 17, 2017 17:43 Mary Madrigal MD January 26, 2017 06:40
[2017-01-17] MEDS: cloNIDine HCL 0.1 MG TAB PO PRN (17:47)
[2017-01-17 21:56] LABS: C. DIFF EPI 027 PRESUMPTIVE NEGATIVE (NEGATIVE); C. DIFF TOXIN PCR NEGATIVE (NEGATIVE)
--- NOTE | 2017-01-17 22:36 | PD.ONC.PN ---
Subjective Subjective Remarks on nasal canula and doing better no LE pain. no dyspnea no bleeding on Heparin prophylaxis Hb stable Objective Data Date Time Temp Pulse Resp B/P Pulse Ox O2 Delivery O2 Flow Rate FiO2 01/17/17 21:14 98 Nasal Cannula 2.00 01/17/17 20:00 99.3 18 98 01/17/17 19:00 109 134/79 01/17/17 16:10 97.9 101 20 194/91 98 01/17/17 15:00 98 Nasal Cannula 2.00 01/17/17 12:00 91 01/17/17 12:00 97.3 91 19 159/82 97 01/17/17 09:47 96 Nasal Cannula 3.00 01/17/17 08:00 99.3 84 20 168/86 97 01/17/17 08:00 84 01/17/17 08:00 97 Nasal Cannula 3.00 01/17/17 06:00 90 01/17/17 04:00 98.4 74 14 155/95 98 01/17/17 04:00 94 01/17/17 02:00 89 01/17/17 00:00 99.0 83 18 130/75 97 01/17/17 00:00 86 01/17/17 01/17/17 01/17/17 07:00 15:00 23:00 Intake Total 123 ml 1860 ml Output Total 900 ml 750 ml Balance -777 ml 1110 ml Result Diagram: 01/17/17 0526 01/17/17 0526 Laboratory Results Laboratory Tests Test 01/17/17 01/17/17 05:26 17:45 White Blood Count 20.6 TH/MM3 Red Blood Count 3.34 MIL/MM3 Hemoglobin 10.0 GM/DL Hematocrit 30.4 % Mean Corpuscular Volume 91.1 FL Mean Corpuscular Hemoglobin 29.8 PG Mean Corpuscular Hemoglobin 32.7 % Concent Red Cell Distribution Width 16.9 % Platelet Count 210 TH/MM3 Mean Platelet Volume 8.6 FL Neutrophils (%) (Auto) 90.8 % Lymphocytes (%) (Auto) 3.6 % Monocytes (%) (Auto) 4.9 % Eosinophils (%) (Auto) 0.4 % Basophils (%) (Auto) 0.3 % Neutrophils # (Auto) 18.7 TH/MM3 Lymphocytes # (Auto) 0.7 TH/MM3 Monocytes # (Auto) 1.0 TH/MM3 Eosinophils # (Auto) 0.1 TH/MM3 Basophils # (Auto) 0.1 TH/MM3 CBC Comment DIFF FINAL Differential Comment Sodium Level 150 MEQ/L Potassium Level 3.5 MEQ/L Chloride Level 114 MEQ/L Carbon Dioxide Level 29.5 MEQ/L Anion Gap 7 MEQ/L Blood Urea Nitrogen 77 MG/DL Creatinine 2.23 MG/DL Estimat Glomerular Filtration 29 ML/MIN Rate Random Glucose 135 MG/DL Calcium Level 9.1 MG/DL Stool C. difficile Toxin (PCR) NEGATIVE Stl C. difficile Toxin PRESUMPTIVE Epiderm 027 NEGATIVE Administered Medications Medications (Trade) Dose Ordered Sig/Jose Route PRN Reason Start Time Stop Time Status Last Admin Dose Admin Sodium Chloride (NS Flush) 2 ml BID IV FLUSH 01/04/17 21:00 01/17/17 21:47 Pantoprazole Sodium (Protonix Inj) 40 mg DAILY IV 01/05/17 09:00 01/17/17 08:32 Artificial Tears (Tears Naturale Opth Soln) 1 drop TID EACH EYE 01/04/17 18:00 01/17/17 13:00 Docusate Sodium (Colace) 100 mg BID PO 01/04/17 21:00 01/17/17 21:32 Chlorhexidine Gluconate Taper DAILY@04 TOP 01/05/17 04:00 01/01/18 03:59 01/17/17 03:51 Thiamine HCl/ Sodium Chloride (Thiamine Inj/NS Inj) 101 ml @ 101 mls/hr DAILY IV 01/05/17 09:00 01/17/17 08:32 Folic Acid (Folate) 1 mg DAILY PO 01/05/17 09:00 01/17/17 08:32 Multivitamins (Theragran) 1 tab DAILY PO 01/05/17 09:00 01/17/17 08:32 Labetalol HCl (Trandate Inj) 10 mg Q1HR PRN IV PUSH SBP>160, DBP>90, HR>65 01/04/17 15:30 01/16/17 07:22 Hydralazine HCl (Apresoline Inj) 10 mg Q1HR PRN IV PUSH SBP>160, DBP>90 01/04/17 15:30 01/17/17 07:20 Nitroglycerin (Nitroglycerin 2% Oint) 2 inch Q6HR PRN TOPICAL SBP>160, DBP>90 01/04/17 15:30 01/04/17 18:17 Chlorhexidine Gluconate 15 ml 15 ml BID@08,20 MT 01/05/17 08:00 01/15/17 08:00 Potassium Chloride 100 ml @ 50 mls/hr Q2H PRN IV For Potassium 2.8 - 3.2 mEq/L 01/06/17 15:00 01/16/17 15:10 Potassium Chloride 100 ml @ 25 mls/hr UNSCH PRN IV For Potassium 3.3 - 3.5 mEq/L 01/06/17 15:00 01/17/17 09:31 Sodium Phosphate/ Sodium Chloride (Sodium Phosphate Inj/NS 250 ml Inj) 250 ml @ 42 mls/hr UNSCH PRN IV For Phosphorus < 2.5 mg/dL 01/06/17 15:00 01/06/17 16:42 Hydrocortisone Sodium Succinate (SoluCORTEF INJ) 50 mg Q8HR IV PUSH 01/08/17 14:00 01/17/17 21:37 Metoprolol Tartrate (Lopressor) 50 mg Q12HR PO 01/09/17 21:00 01/17/17 21:32 Metoclopramide HCl (Reglan Inj) 5 mg Q8HR IV PUSH 01/16/17 22:00 01/17/17 21:35 Polyethylene Glycol (Miralax) 17 gm DAILY PO 01/17/17 09:00 01/17/17 08:32 Heparin Sodium (Porcine) (Heparin Inj) 5,000 units Q8HR SQ 01/17/17 10:00 01/17/17 21:36 Amlodipine Besylate (Norvasc) 10 mg DAILY PO 01/17/17 16:30 01/17/17 17:47 Clonidine (Catapres) 0.1 mg Q8HR PRN PO SBP>180 0r DBP>100 01/17/17 16:30 01/17/17 17:47 Objective Remarks GENERAL: nad SKIN: Warm and dry LYMPHATIC: No adenopathy. CARDIOVASCULAR: Regular rate and rhythm without murmurs. RESPIRATORY: Breath sounds equal bilaterally. No accessory muscle use. GASTROINTESTINAL: Abdomen soft, non-tender, nondistended. EXTREMITIES: No cyanosis, Assessment/Plan Problem List: (1) DVT (deep venous thrombosis) Status: Acute Plan: -- Pt not a candidate for anticoagulation due to subacute hemorrhages of the adrenal gland. -- s/p IVC filter placement on 01/16/17 Assessment 76 y/o male admitted for AMS who went into respiratory failure; Hematology consulted for RLE DVT with bilateral adrenal hemorrhages. Plan 1. s/p IVC filter placement. 2. Hb stable. On heparin prophylactic dose. 3. Will obtain CT abdomen with contrast to asses adrenal hemorrhage. If stable will start Heparin GTT in am d/w lorena . Anatoliy Arauz MD January 17, 2017 22:36
[2017-01-18] VITALS (9 sets, daily range): BP systolic 120–170; BP diastolic 72–89; PULSE 89–107; RESP 16–19; TEMP 96–99.3; O2SAT 93–98
[2017-01-18] MEDS: RESP: ALBUTEROL 2.5 MG/IPRATROPIUM 0.5 MG NEB (SCH) NEB ×4 (03:08→22:47)
[2017-01-18] MEDS: CHLORHEXIDINE GLUCONATE 2 % 1 PACK (2 CLOTHS) TOP SCH (04:00)
[2017-01-18] MEDS: HEPARIN SODIUM - SQ 10,000 UNITS/ML VIAL SQ SCH ×3 (05:46→22:44)
[2017-01-18] MEDS: HYDROCORTISONE SOD SUCCINATE 100 MG VIAL IV PUSH SCH ×3 (05:47→22:44)
[2017-01-18] MEDS: METOCLOPRAMIDE HCL 10 MG/2 ML VIAL IV PUSH SCH ×2 (05:47→14:35)
[2017-01-18] MEDS: INSULIN NovoLIN REGULAR SUPPLEMENTAL SCALE SQ SCH ×5 (05:48→22:52)
[2017-01-18] MEDS: CHLORHEXIDINE 0.12% (ORAL KIT) 15 ML CUP MT SCH ×2 (08:00→20:00)
[2017-01-18] MEDS: DOCUSATE SODIUM 100 MG CAP PO SCH ×2 (08:49→22:40)
[2017-01-18] MEDS: MULTIVITAMIN TAB PO SCH (08:49)
[2017-01-18] MEDS: POLYETHYLENE GLYCOL 17 GM PKG PO SCH (08:49)
[2017-01-18] MEDS: METOPROLOL TARTRATE 25 MG TAB PO SCH ×2 (08:49→22:40)
[2017-01-18] MEDS: FOLIC ACID 1 MG TAB PO SCH (08:49)
[2017-01-18] MEDS: PANTOPRAZOLE SODIUM 40 MG VIAL IV SCH (08:50)
[2017-01-18] MEDS: THIAMINE INJ 100 MG in SODIUM CHLORIDE 0.9% INJ 100 ML IV SCH (08:51)
[2017-01-18] MEDS: ARTIFICIAL TEARS OPTH SOLN 15 ML BTL EACH EYE SCH ×3 (08:52→18:00)
[2017-01-18] MEDS: SODIUM CHLORIDE 0.9% FLUSH 10 ML FLUSH IV FLUSH SCH ×2 (08:52→21:00)
--- NOTE | 2017-01-18 10:22 | HHI.PR ---
Subjective Subjective Notes "I am thirsty" Objective Vitals/I&O Vital Signs Date Time Temp Pulse Resp B/P Pulse Ox O2 Delivery O2 Flow Rate FiO2 01/18/17 09:52 93 01/18/17 09:52 Nasal Cannula 2.00 01/18/17 08:00 98.6 16 159/82 97 01/17/17 21:35 40 Labs Laboratory Tests Test 01/17/17 17:45 Stool C. difficile Toxin (PCR) NEGATIVE Stl C. difficile Toxin PRESUMPTIVE Epiderm 027 NEGATIVE Cardiovascular: Regular Lungs: Clear Abdomen: Non-distended, Non-tender Extremities: No edema A/P Assessment and Plan 76 year old male, MOSF; likely ileus secondary to medical conditions -Tolerating regular diet -Currently NPO for abdominal MRI -+BM -Remove rectal bag -No acute surgical needs at this time -GS will sign off; please call if any questions Attending Statement The exam, history, and the medical decision-making described in the above note were completed with the assistance of the mid-level provider. I reviewed and agree with the findings presented. I attest that I had a [id number] encounter with the patient on the same day, and personally performed and documented my assessment and findings in the medical record. Abdominal exam stable, tolerating PO and having bowel function, advance diet as tolerated will sign off Nancy Benson January 18, 2017 10:22 Bharat Saleh MD February 05, 2017 16:41
--- NOTE | 2017-01-18 11:27 | RADRPT ---
EXAM DATE/TIME: 01/18/2017 10:36 [facility] COMPARISON: CT ABDOMEN & PELVIS W/O CONTRAST, January 02, 2017, 19:50. CT ABDOMEN & PELVIS W CONTRAST, January 04, 017, 10:32. CT ABDOMEN & PELVIS W/O CONTRAST, January 11, 2017, 20:00. MRI ABDOMEN W/O CONTRAST, January 05, 2017, 14:37. INDICATIONS : Adrenal hemorrhage. MEDICAL HISTORY : Unknown. SURGICAL HISTORY : Unknown. ENCOUNTER: Subsequent ACUITY: 2 weeks PAIN SCORE: 0/10 LOCATION: TECHNIQUE: Multiplanar, multisequence magnetic resonance imaging of the abdomen was performed without contrast. FINDINGS: LIVER: Normal size with normal signal intensity. No lesion is identified. Portal vein is within normal limi ts. BILIARY: There is no intra- or extra-hepatic biliary ductal dilatation. Gallbladder remains moderately disten ded. SPLEEN: Within normal limits. PANCREAS: Within normal limits. ADRENALS: Increasing T2 hyperintensity with restricted diffusion is evident in both adrenal glands. KIDNEYS: Normal size and signal intensity. There is no hydronephrosis or mass. OTHER: Aorta is nonaneurysmal. There is no lymphadenopathy. CONCLUSION: Evolving changes in the adrenal glands with evidence of increasing edema and restricted diffusion. Th devang changes are relate to bilateral adrenal hemorrhage previously described. Significant potential fo r adrenal insufficiency should be considered. Distended gallbladder. No significant interval change. Matthew Aguirre MD on January 18, 2017 at 11:06 Board Certified Radiologist. This report was verified electronically.
--- NOTE | 2017-01-18 17:07 | HHI.PR ---
Subjective Remarks Follow-up for ileus and adrenal hemorrhage Patient has no complaints. He states tolerate by mouth intake. Denies any dominant pain. Patient maintains afebrile. Per nurse she is asking for psychiatric consult because patient would said "someone is trying to kill him and that he wants the persistent taken to surgery." Patient was AAO 3. Answer questions appropriately. Objective Vitals Vital Signs Date Time Temp Pulse Resp B/P Pulse Ox O2 Delivery O2 Flow Rate FiO2 01/18/17 16:00 98.8 104 16 137/74 98 01/18/17 12:00 99.3 96 17 161/80 93 01/18/17 09:52 93 01/18/17 09:52 Nasal Cannula 2.00 01/18/17 09:50 97 Nasal Cannula 2.00 01/18/17 08:00 98.6 96 16 159/82 97 01/18/17 04:00 98.9 90 18 120/73 97 01/18/17 00:00 99.0 89 18 133/72 98 01/18/17 00:00 Nasal Cannula 2.00 01/17/17 21:35 Nasal Cannula 2.00 40 01/17/17 21:14 98 Nasal Cannula 2.00 01/17/17 20:14 89 01/17/17 20:00 99.3 18 98 01/17/17 19:00 109 134/79 I/O 01/17/17 01/17/17 01/17/17 01/18/17 01/18/17 01/18/17 07:00 15:00 23:00 07:00 15:00 23:00 Intake Total 123 ml 1860 ml 240 ml 0 ml 960 ml Output Total 900 ml 750 ml 800 ml 400 ml Balance -777 ml 1110 ml -560 ml -400 ml 960 ml Intake Oral 1860 ml 240 ml 0 ml 960 ml IV Total 123 ml Output Urine Total 400 ml 550 ml 800 ml 400 ml Stool Total 500 ml 200 ml Result Diagram: 01/17/17 0526 01/17/17 0526 Imaging Last Impressions Abdomen MRI 01/18/17 0000 Signed Impressions: Service Date/Time: Wednesday, January 18, 2017 10:36 - CONCLUSION: Evolving changes in the adrenal glands with evidence of increasing edema and restricted diffusion. These changes are relate to bilateral adrenal hemorrhage previously described. Significant potential for adrenal insufficiency should be considered. Distended gallbladder. No significant interval change. Matthew Aguirre MD Small Bowel X-Ray 01/16/17 Signed Impressions: Service Date/Time: Monday, January 16, 2017 15:58 - CONCLUSION: Unremarkable small bowel examination. Dk Benedict MD IVC Filter Placement X-Ray 01/16/17 Signed Impressions: Service Date/Time: Monday, January 16, 2017 10:36 - CONCLUSION: Uncomplicated inferior vena cava filter placement as above. Matthew Aguirre MD Chest X-Ray 01/15/17 Signed Impressions: Service Date/Time: Sunday, January 15, 2017 14:51 - CONCLUSION: Decreasing densities in the right lung. Dk Benedict MD Lower Extremity Ultrasound 01/12/17 Signed Impressions: Service Date/Time: Thursday, January 12, 2017 12:08 - CONCLUSION: 1. Deep venous thrombosis which is nonocclusive in the superficial femoral and popliteal veins. 2. Superficial venous thrombosis in the greatest saphenous vein. Tyler Nagy MD Abdomen/Pelvis CT 01/11/17 Signed Impressions: Service Date/Time: Wednesday, January 11, 2017 20:00 - CONCLUSION: 1. Subacute hemorrhage of both adrenal glands, not significantly changed on the left, smaller on the right. 2. Increased/new pleural fluid at both bases, new, small ascites, new body wall edema/anasarca. 3. No evidence of bowel obstruction. Nasogastric tube coiled in the stomach. 4. Patchy airspace consolidation of the right lung base, new. Santos Arce MD Head Magnetic Resonance Angiography 01/05/17 Signed Impressions: Service Date/Time: Thursday, January 05, 2017 14:37 - CONCLUSION: Normal examination. Esperanza Odell MD Head CT 01/04/17 0848 Signed Impressions: Service Date/Time: Wednesday, January 04, 2017 08:58 - CONCLUSION: Unremarkable examination for each. Tyler Nagy MD Neck CT 01/04/17 Signed Impressions: Service Date/Time: Wednesday, January 04, 2017 20:49 - CONCLUSION: Questionable thickening of the vocal cords. These can be directly inspected. Otherwise the study appears grossly normal for a noncontrast CT of the neck. Santos Whitley MD Chest CT 01/04/17 0000 Signed Impressions: Service Date/Time: Wednesday, January 04, 2017 20:50 - CONCLUSION: 1. Mild bilateral pleural effusions with suspected accompanying areas of atelectasis or consolidation at the lung bases. 2. Coronary artery calcifications. Santos Whitley MD Brain MRI 01/04/17 0000 Signed Impressions: Service Date/Time: Wednesday, January 04, 2017 21:19 - CONCLUSION: Atrophy and mild chronic white matter changes. No acute infarct or other acute intracranial abnormality. Santos Arce MD Objective Remarks GENERAL: 76-year-old male, now on NC. Edematous. CARDIOVASCULAR: S1, S2 normal. No S4. rate 80s, RESPIRATORY: On NC. Clear to auscultation bilaterally. GASTROINTESTINAL: Abdomen remains distended. No guarding. Nontender. Active bowel sounds. MUSCULOSKELETAL: Bilateral lower extremity edema. R>L NEUROLOGICAL: Oriented to person and to place, opens eyes, follows commands. Medications and IVs Current Medications Sodium Chloride 2 ml 2 ml UNSCH PRN IVF FLUSH AFTER USING IV ACCESS Last administered on 01/04/17 13:29; Start 01/04/17 at 09:00; Stop 01/04/17 at 14:42 ; Status DC Sodium Chloride (NS 500 ml Inj) 500 ml @ 500 mls/hr BOLUS ONCE IV Last administered on 01/04/17 09:12; Start 01/04/17 at 09:00; Stop 01/04/17 at 09:59 ; Status DC Labetalol HCl 20 mg 20 mg ONCE ONCE IV PUSH Last administered on 01/04/17 09: 38; Start 01/04/17 at 09:30; Stop 01/04/17 at 09:33; Status DC Ceftriaxone Sodium/Sodium Chloride (Rocephin Inj/NS Inj) 100 ml @ 200 mls/hr ONCE ONCE IV Last administered on 01/04/17 09:42; Start 01/04/17 at 09:30; Stop 01/04/17 at 09:59; Status DC Labetalol HCl (Trandate Inj) 20 mg ONCE ONCE IV PUSH Last administered on 01/04 10:53; Start 01/04/17 at 10:30; Stop 01/04/17 at 10:31; Status DC Iohexol (Omnipaque 350 Inj) 80 ml STK-MED ONCE IV Last administered on 10:48; Start 01/04/17 at 10:48; Stop 01/04/17 at 10:49; Status DC Morphine Sulfate (Morphine Inj) 2 mg ONCE ONCE IV PUSH Last administered on 11:05; Start 01/04/17 at 11:00; Stop 01/04/17 at 11:01; Status DC Cosyntropin 0.25 mg 0.25 mg ONCE ONCE IV PUSH Last administered on 01/04/17 13:29; Start 01/04/17 at 12:15; Stop 01/04/17 at 12:40; Status DC Sodium Chloride (NS 1000 ml Inj) 1,000 ml @ 84 mls/hr [id number] IV Last administered on 01/10/17 02:15; Start 01/04/17 at 14:38; Stop 01/10/17 at 12:28; Status DC Sodium Chloride (NS Flush) 2 ml UNSCH PRN IV FLUSH FLUSH AFTER USING IV ACCESS ; Start 01/04/17 at 14:45 Sodium Chloride (NS Flush) 2 ml BID IV FLUSH Last administered on 01/18/17 08: 52; Start 01/04/17 at 21:00 Acetaminophen (Tylenol) 650 mg Q6H PRN PO PAIN 1-10 AND/OR FEVER >101F; Start 01/04/17 at 14:45 Pantoprazole Sodium (Protonix Inj) 40 mg DAILY IV Last administered on 08:50; Start 01/05/17 at 09:00 Artificial Tears (Tears Naturale Opth Soln) 1 drop TID EACH EYE Last administered on 01/18/17 14:40; Start 01/04/17 at 18:00 Ondansetron HCl (Zofran Inj) 4 mg Q6H PRN IV NAUSEA OR VOMITING; Start at 14:45 Docusate Sodium (Colace) 100 mg BID PO Last administered on 01/18/17 08:49; Start 01/04/17 at 21:00 Sennosides (Senokot) 17.2 mg Q12H PRN PO CONSTIPATION; Start 01/04/17 at 14:45 Albuterol/ Ipratropium (Duoneb Neb) 1 ampule Q4HR NEB INH Last administered on 01/08/17 11:24; Start 01/04/17 at 16:00; Stop 01/08/17 at 16:00; Status DC Albuterol Sulfate (Albuterol Neb) 2.5 mg Q2HR NEB PRN INH CONSTIPATION Last administered on 01/12/17 19:54; Start 01/04/17 at 14:45 Miscellaneous Information 1 [id number] XX ; Start 01/04/17 at 14:45 Chlorhexidine Gluconate (Chlorhexidine 2% Cloth) Taper DAILY@04 TOP Last administered on 01/17/17 03:51; Start 01/05/17 at 04:00; Stop 01/01/18 at 03:59 Chlorhexidine Gluconate 3 pack 3 pack UNSCH PRN TOP HYGIENIC CARE; Start at 14:45 Thiamine HCl 100 mg/Sodium Chloride 101 ml @ 101 mls/hr DAILY IV Last administered on 01/18/17 08:51; Start 01/05/17 at 09:00 Thiamine HCl/ Sodium Chloride (Thiamine Inj/NS Inj) 101 ml @ 101 mls/hr ONCE ONCE IV Last administered on 01/04/17 15:36; Start 01/04/17 at 16:00; Stop at 16:59; Status DC Folic Acid (Folate) 1 mg DAILY PO Last administered on 01/18/17 08:49; Start 01/05/17 at 09:00 Multivitamins 1 tab 1 tab DAILY PO Last administered on 01/18/17 08:49; Start 01/05/17 at 09:00 Magnesium Sulfate/ Dextrose (Magnesium Sulfate 1 Gm Premix) 100 ml @ 100 mls/ hr Q1H IV Last administered on 01/04/17 17:00; Start 01/04/17 at 16:00; Stop 01/04/17 at 17:59; Status DC Labetalol HCl (Trandate Inj) 10 mg Q1HR PRN IV PUSH SBP>160, DBP>90, HR>65 Last administered on 01/16/17 07:22; Start 01/04/17 at 15:30 Hydralazine HCl (Apresoline Inj) 10 mg Q1HR PRN IV PUSH SBP>160, DBP>90 Last administered on 01/17/17 07:20; Start 01/04/17 at 15:30 Nitroglycerin 2 inch 2 inch Q6HR PRN TOPICAL SBP>160, DBP>90 Last administered on 01/04/17 18:17; Start 01/04/17 at 15:30 Cefepime HCl 2000 mg/Sodium Chloride 100 ml @ 200 mls/hr Q12H IV Last administered on 01/14/17 03:13; Start 01/04/17 at 16:00; Stop 01/14/17 at 15:25; Status DC Pharmacy Profile Note 0 ml @ 0 mls/hr UNSCH OTHER ; Start 01/04/17 at 16:00; Stop 01/10/17 at 12:28; Status DC Vancomycin HCl/ Sodium Chloride (Vancomycin Inj/ NS 250 ml Inj) 262.5 ml @ 250 mls/hr Q12H IV Last administered on 01/08/17 17:38; Start 01/04/17 at 18:00; Stop 01/10/17 at 08:48; Status DC Miscellaneous Information SPECIFIC LAB TO BE DRAWN:VANCOMY... ONCE ONCE .XX Last administered on 01/06/17 05:38; Start 01/06/17 at 05:45; Stop 01/06/17 at 05:46; Status DC Dextrose (D50w (Vial) Inj) 25 ml UNSCH PRN IV PUSH HYPOGLYCEMIA-SEE COMMENTS; Start 01/04/17 at 19:15 Glucagon (Glucagon Inj) 1 mg UNSCH PRN OTHER HYPOGLYCEMIA-SEE COMMENTS; Start 01/04/17 at 19:15 Insulin Human Regular (NovoLIN R SUPPLEMENTAL SCALE) 1 ACHS SLIDING SCALE SQ Last administered on 01/17/17 21:54; Start 01/04/17 at 21:00 Hydrocortisone Sodium Succinate (SoluCORTEF INJ) 100 mg Q8HR IV PUSH Last administered on 01/08/17 05:29; Start 01/04/17 at 22:00; Stop 01/08/17 at 11:23; Status DC Epinephrine HCl (EPINEPHrine (1:10,000) INJ) 1 mg STK-MED ONCE .ROUTE ; Start at 20:24; Stop 01/04/17 at 20:25; Status DC Lidocaine HCl (Xylocaine 2% Inj) 100 mg STK-MED ONCE .ROUTE ; Start 01/04/17 at 20:24; Stop 01/04/17 at 20:25; Status DC Atropine Sulfate 1 mg 1 mg STK-MED ONCE .ROUTE ; Start 01/04/17 at 20:25; Stop 01/04/17 at 20:26; Status DC Propofol (Diprivan 1000 Mg/100ml Inj) 100 ml @ As Directed STK-MED ONCE .ROUTE ; Start 01/05/17 at 00:09; Stop 01/05/17 at 00:10; Status DC Rocuronium Peyton (Zemuron Inj) 100 mg BOLUS ONCE IV Last administered on 00:15; Start 01/05/17 at 00:15; Stop 01/05/17 at 00:16; Status DC Etomidate (Amidate Inj) 40 mg STK-MED ONCE .ROUTE ; Start 01/05/17 at 00:09; Stop 01/05/17 at 00:10; Status DC Chlorhexidine Gluconate 15 ml 15 ml BID@08,20 MT Last administered on 01/15/17 08:00; Start 01/05/17 at 08:00 Propofol 100 ml @ 0 mls/hr TITRATE IV Last administered on 01/05/17 05:47; Start 01/05/17 at 00:15; Stop 01/05/17 at 17:50; Status DC Midazolam HCl (Versed Inj) 100 ml @ 0 mls/hr TITRATE IV ; Start 01/05/17 at 00: 15; Status Cancel Midazolam HCl (Versed Inj) 10 mg NOW ONCE IV Last administered on 01/05/17 00 :15; Start 01/05/17 at 00:15; Stop 01/05/17 at 00:16; Status DC Acetaminophen (Ofirmev Inj) 1,000 mg ONCE ONCE IV Last administered on 00:15; Start 01/05/17 at 00:15; Stop 01/05/17 at 00:16; Status DC Midazolam HCl 10 mg 10 mg STK-MED ONCE .ROUTE ; Start 01/05/17 at 00:15; Stop at 00:16; Status DC Sodium Chloride (Sodium Chloride 3% Inj) 250 ml @ 100 mls/hr ONCE ONCE IV Last administered on 01/05/17 00:15; Start 01/05/17 at 00:15; Stop 01/05/17 at 02:44; Status DC Furosemide 40 mg 40 mg STK-MED ONCE .ROUTE Last administered on 01/05/17 00:24 ; Start 01/05/17 at 00:24; Stop 01/05/17 at 00:25; Status DC Fentanyl Citrate (fentaNYL DRIP) 250 ml @ 0 mls/hr TITRATE IV Last administered on 01/15/17 05:45; Start 01/05/17 at 04:30; Stop 01/16/17 at 13:26 ; Status DC Lorazepam (Ativan Inj) 1 mg Q6H IV PUSH Last administered on 01/06/17 04:02; Start 01/05/17 at 04:30; Stop 01/06/17 at 12:00; Status DC Terbutaline Sulfate 1 mg 1 mg UNSCH PRN SQ For Extravasation; Start 01/05/17 at 04:30 Phenylephrine HCl 80 mg/Dextrose 500 ml @ 0 mls/hr TITRATE IV Last administered on 01/08/17 11:29; Start 01/05/17 at 04:30; Stop 01/16/17 at 13:26 ; Status DC Sodium Chloride 250 ml @ 200 mls/hr ONCE ONCE IV Last administered on 06:30; Start 01/05/17 at 06:30; Stop 01/05/17 at 07:44; Status DC Midazolam HCl (Versed Inj) 100 ml @ 0 mls/hr TITRATE IV Last administered on 14:33; Start 01/05/17 at 09:30; Stop 01/07/17 at 07:31; Status DC Metoprolol Tartrate 5 mg 5 mg STK-MED ONCE .ROUTE ; Start 01/05/17 at 10:21; Stop 01/05/17 at 10:22; Status DC Sodium Chloride 188 meq/Sodium Chloride 1,047 ml @ 60 mls/hr [id number] IV Last administered on 01/06/17 05:40; Start 01/05/17 at 18:00; Stop 01/07/17 at 07:32 ; Status DC Metronidazole 100 ml @ 100 mls/hr Q8H IV Last administered on 01/14/17 13:09; Start 01/05/17 at 22:00; Stop 01/14/17 at 15:25; Status DC Potassium Chloride 100 ml @ 50 mls/hr Q2H PRN IV For Potassium 2.8 - 3.2 mEq/ L Last administered on 01/16/17 15:10; Start 01/06/17 at 15:00 Potassium Chloride (KCl 20 Meq Premix Inj) 100 ml @ 50 mls/hr Q2H PRN IV For Potassium 2.8 - 3.2 mEq/L; Start 01/06/17 at 15:00 Potassium Bicarb/ Potassium Chloride 50 meq 50 meq UNSCH PRN PO For Potassium 3.3 - 3.5 mEq/L; Start 01/06/17 at 15:00 Potassium Chloride 100 ml @ 25 mls/hr UNSCH PRN IV For Potassium 3.3 - 3.5 mEq /L Last administered on 01/17/17 09:31; Start 01/06/17 at 15:00 Potassium Chloride 100 ml @ 50 mls/hr Q2H PRN IV For Potassium 3.3 - 3.5 mEq/L ; Start 01/06/17 at 15:00 Magnesium Sulfate/ Sodium Chloride (Magnesium Sulfate Inj/NS Inj) 100 ml @ 50 mls/hr UNSCH PRN IV For Magnesium 0.9 - 1.1 mg/dL; Start 01/06/17 at 15:00 Magnesium Oxide 800 mg 800 mg UNSCH PRN PO For Magnesium 1.2 - 1.6 mg/dL; Start 01/06/17 at 15:00 Magnesium Sulfate/ Sodium Chloride (Magnesium Sulfate Inj/NS Inj) 100 ml @ 50 mls/hr UNSCH PRN IV For Magnesium 1.2 - 1.6 mg/dL; Start 01/06/17 at 15:00 Potassium Phosphate 2000 mg 2,000 mg Q4H PRN PO For Phosphorus < 2.5 mg/dL; Start 01/06/17 at 15:00 Sodium Phosphate/ Sodium Chloride (Sodium Phosphate Inj/NS 250 ml Inj) 250 ml @ 42 mls/hr UNSCH PRN IV For Phosphorus < 2.5 mg/dL Last administered on 16:42; Start 01/06/17 at 15:00 Potassium Phosphate 2000 mg 2,000 mg UNSCH PRN PO/TUBE SEE LABEL COMMENTS; Start 01/06/17 at 15:00 Propofol 100 ml @ As Directed STK-MED ONCE .ROUTE Last administered on 01:04; Start 01/07/17 at 01:04; Stop 01/07/17 at 01:05; Status DC Propofol (Diprivan 1000 Mg/100ml Inj) 100 ml @ 0 mls/hr TITRATE IV Last administered on 01/15/17 12:26; Start 01/07/17 at 03:45; Stop 01/16/17 at 13:27; Status DC Miscellaneous Information SPECIFIC LAB TO BE DRAWN:VANCO TROUGH DATE... ONCE ONCE .XX Last administered on 01/08/17 17:38; Start 01/08/17 at 17:45; Stop 01/08 at 17:46; Status DC Amiodarone HCl 150 mg/Dextrose 100 ml @ 100 mls/hr NOW ONCE IV Last administered on 01/08/17 02:25; Start 01/08/17 at 02:15; Stop 01/08/17 at 03:14; Status DC Amiodarone HCl/ Dextrose (Cordarone Inj/ D5W ([place]) Inj) 259 ml @ 0 mls/hr CONTINUOUS IV Last administered on 01/09/17 02:51; Start 01/08/17 at 04:45; Stop 01/09/17 at 08:17; Status DC Hydrocortisone Sodium Succinate 50 mg 50 mg Q8HR IV PUSH Last administered on 14:34; Start 01/08/17 at 14:00 Sodium Chloride (NS 1000 ml Inj) 1,000 ml @ 999 mls/hr BOLUS ONCE IV Last administered on 01/08/17 11:29; Start 01/08/17 at 12:00; Stop 01/08/17 at 13:00; Status DC Metoprolol Tartrate (Lopressor) 12.5 mg Q12HR PO Last administered on 01/09/17 07:59; Start 01/08/17 at 12:00; Stop 01/09/17 at 08:17; Status DC Miscellaneous 1 ea 1 ea UNSCH PRN OTHER SEE LABEL COMMENTS; Start 01/08/17 at 11 :30 Dexmedetomidine HCl/Sodium Chloride (Precedex Inj/NS Inj) 52 ml @ 0 mls/hr TITRATE IV Last administered on 01/10/17 07:49; Start 01/09/17 at 09:00; Stop at 08:23; Status DC Metoprolol Tartrate (Lopressor) 50 mg Q12HR PO Last administered on 01/18/17 08:49; Start 01/09/17 at 21:00 Metoprolol Tartrate 12.5 mg 12.5 mg ONCE ONCE PO Last administered on 09:24; Start 01/09/17 at 08:30; Stop 01/09/17 at 08:31; Status DC Dexmedetomidine HCl 1000 mcg/ Sodium Chloride 250 ml @ 0 mls/hr TITRATE IV Last administered on 01/13/17 07:59; Start 01/10/17 at 08:23; Stop 01/16/17 at 13 :27; Status DC Vancomycin HCl/ Sodium Chloride (Vancomycin Inj/ NS 250 ml Inj) 262.5 ml @ 250 mls/hr ONCE ONCE IV ; Start 01/10/17 at 18:00; Stop 01/10/17 at 18:00; Status DC Miscellaneous Information SPECIFIC LAB TO BE DRAWN: VANCOMYCIN RANDOM DATE TO... ONCE ONCE .XX ; Start 01/12/17 at 06:00; Stop 01/12/17 at 06:00; Status DC Bumetanide (Bumex Inj) 1 mg ONCE ONCE IV PUSH Last administered on 01/10/17 14 :00; Start 01/10/17 at 13:15; Stop 01/10/17 at 13:16; Status DC Bumetanide (Bumex Inj) 1 mg BID@09,18 IV PUSH Last administered on 01/12/17 09: 19; Start 01/10/17 at 18:00; Stop 01/12/17 at 17:59; Status DC Potassium Bicarbonate (Effer-K Eff) 25 meq DAILY PO Last administered on 09:21; Start 01/10/17 at 13:30; Stop 01/12/17 at 13:29; Status DC Albumin Human (Albumin 25% Inj) 25 gm Q12H IV Last administered on 01/12/17 01: 58; Start 01/10/17 at 13:00; Stop 01/12/17 at 12:59; Status DC Diatrizoate Meglum/ Diatrizoate Sod ( Gastroview Liq) 18 ml ONCE ONCE PO Last administered on 01/11/17 17:01; Start 01/11/17 at 16:15; Stop 01/11/17 at 16: 16; Status DC Furosemide 40 mg 40 mg NOW ONCE IVP Last administered on 01/12/17 11:55; Start 01/12/17 at 11:00; Stop 01/12/17 at 11:01; Status DC Furosemide/Sodium Chloride (Lasix Inj/NS Inj) 100 ml @ 0 mls/hr CONTINUOUS IV Last administered on 01/14/17 15:25; Start 01/12/17 at 12:00; Stop 01/14/17 at 16: 52; Status DC Albuterol/ Ipratropium (Duoneb Neb) 1 ampule Q6HR NEB NEB Last administered on 01/18/17 15:54; Start 01/13/17 at 10:00 Midazolam HCl (Versed Inj) 5 mg STK-MED ONCE .ROUTE Last administered on 12:46; Start 01/13/17 at 12:19; Stop 01/13/17 at 12:20; Status DC Rocuronium Peyton (Zemuron Inj) 100 mg STK-MED ONCE .ROUTE Last administered on 01/13/17 12:48; Start 01/13/17 at 12:19; Stop 01/13/17 at 12:20; Status DC Midazolam HCl (Versed Inj) 5 mg STK-MED ONCE .ROUTE Last administered on 12:46; Start 01/13/17 at 12:19; Stop 01/13/17 at 12:20; Status DC Midazolam HCl (Versed Inj) 10 mg STAT ONCE IV Last administered on 01/13/17 13 :15; Start 01/13/17 at 13:15; Stop 01/13/17 at 13:16; Status DC Rocuronium Peyton (Zemuron Inj) 100 mg STAT ONCE IV Last administered on 13:15; Start 01/13/17 at 13:15; Stop 01/13/17 at 13:16; Status DC Potassium Chloride 40 meq 40 meq NOW ONCE PO Last administered on 01/14/17 04: 59; Start 01/14/17 at 05:00; Stop 01/14/17 at 05:01; Status DC Potassium Chloride (KCl 40 Meq Premix Inj) 100 ml @ 25 mls/hr Q4H IV ; Start at 07:00; Stop 01/15/17 at 14:59; Status DC Bisacodyl (Dulcolax Supp) 10 mg ONCE ONCE RECTAL Last administered on 18:30; Start 01/15/17 at 14:15; Stop 01/15/17 at 14:25; Status DC Midazolam HCl (Versed Inj) 5 mg STK-MED ONCE .ROUTE ; Start 01/16/17 at 10:38; Stop 01/16/17 at 10:39; Status DC Fentanyl Citrate 250 mcg 250 mcg STK-MED ONCE .ROUTE ; Start 01/16/17 at 10:39; Stop 01/16/17 at 10:40; Status DC Cefazolin Sodium/ Dextrose (Ancef 2 Gm Premix) 50 ml @ As Directed STK-MED ONCE .ROUTE ; Start 01/16/17 at 10:56; Stop 01/16/17 at 10:57; Status DC Iohexol (Omnipaque 300 Inj) 50 ml STK-MED ONCE IV Last administered on 11:35; Start 01/16/17 at 11:35; Stop 01/16/17 at 11:36; Status DC Bisacodyl (Dulcolax Ec) 10 mg ONCE ONCE PO Last administered on 01/16/17 14: 52; Start 01/16/17 at 13:45; Stop 01/16/17 at 13:50; Status DC Bisacodyl (Dulcolax Supp) 10 mg ONCE ONCE RECTAL Last administered on 14:52; Start 01/16/17 at 13:45; Stop 01/16/17 at 13:50; Status DC Lactulose (Lactulose Liq) 30 ml ONCE ONCE PO Last administered on 01/16/17 14 :52; Start 01/16/17 at 13:45; Stop 01/16/17 at 13:50; Status DC Metoclopramide HCl (Reglan Inj) 5 mg Q8HR IV PUSH Last administered on 14:35; Start 01/16/17 at 22:00 Polyethylene Glycol (Miralax) 17 gm DAILY PO Last administered on 01/17/17 08: 32; Start 01/17/17 at 09:00 Diatrizoate Meglum/ Diatrizoate Sod (Md Nayak Liq) 240 ml STK-MED ONCE NG Last administered on 01/16/17 16:26; Start 01/16/17 at 16:26; Stop 01/16/17 at 16:27; Status DC Heparin Sodium (Porcine) (Heparin Inj) 5,000 units Q8HR SQ Last administered on 01/18/17 14:35; Start 01/17/17 at 10:00 Amlodipine Besylate (Norvasc) 10 mg DAILY PO Last administered on 01/18/17 08: 49; Start 01/17/17 at 16:30 Clonidine (Catapres) 0.1 mg Q8HR PRN PO SBP>180 0r DBP>100 Last administered on 01/17/17 17:47; Start 01/17/17 at 16:30 Date of Insertion: Jan 04, 2017 Date of Insertion: Jan 04, 2017 Side: Left Location: Subclavian A/P Problem List: (1) Thrombocytosis ICD Code: D47.3 Status: Acute (2) Depression ICD Code: F32.9 Status: Acute (3) Anticoagulant long-term use ICD Code: Z79.01 Status: Acute (4) Leg wound, right ICD Code: S81.801A Status: Acute (5) Hypo-osmolality and hyponatremia ICD Code: E87.1 Status: Acute (6) Hyperglycemia ICD Code: R73.9 Status: Acute (7) Hypertension ICD Code: I10 Status: Acute (8) Abdominal pain ICD Code: R10.9 Status: Acute (9) DVT (deep venous thrombosis) ICD Code: I82.409 Status: Acute (10) Leukocytosis ICD Code: D72.829 Status: Acute (11) Distended abdomen ICD Code: R14.0 Status: Acute Assessment and Plan Acute toxic metabolic encephalopathy-resolving History of EtOH Depression/anxiety off sedation. CT head 01/04 reveals no acute intracranial abnormalities Holding bupropion 150 mg by mouth daily, Hold Ultram and Percocet with altered mental status currently consider restarting tomorrow but may not need pain medication since patient is denying pain. Thiamine/folate/multivitamin daily with EtOH use MRI/A brain 01/05- normal exam Right lower extremity DVT Fluid overload Hypertension As needed hydralazine/labetalol/Nitropaste to maintain systolic blood pressure was 160 on Lopressor 25 mg BID- 01/05 right lower extremity Dopplers ultrasound for DVT-partially occlusive thrombus right SFA, popliteal and peroneal veins Status post IVC filter placement on 01/16 pending [employer] G[employer] to restart heparin Acute hypoxic respiratory failure requiring intubation Extubated 01/15/17 Required intubation 01/05 for labored breathing due to bronchospasm. Extubated 01/13 but had to be reintubated Ileus CT abd/pelvis 01/04 revealed right 3.6 x 2.4 cm and left 2.5 x 1.4 cm adrenal masses. Distal esophagus with thickening. Dilated stomach. Colonic Diverticuli. Compressed colon. Possible bowel obstruction. Dr. Saleh/general surgery consulted-medical management at this time. Small bowel follow-through done on 01/16 was unremarkable. MRI suggested bilateral adrenal hemorrhage - hypercoagulable workup in progress and being followed by hematology. Negative ultrasound gallbladder 01/02 clinically tolerating diet. Acute kidney injury Proteinuria IMPROVING Patient states he needed kidney biopsy in past but refused Accurate I's and O's Monitor urine output ADH elevated, ACTH normal range B/L adrenal hemorrhage See CT abdomen/pelvis Follow-up on adrenal insufficiency workup. Positive antiphospholipid use Silvadene antibody, heterozygous state for MTHFR gene mutation, abnormal lupus anticoagulant test ADH elevated, ACTH normal range Noted hypertensive. Potassium normal. Continue hydrocortisone 50 mg 3 times a day and considering weaning tomorrow. need to consider renal insufficiency. Sliding-scale insulin with Accu-Cheks to maintain euglycemia/low regimen MRI Evolving changes in the adrenal glands with evidence of increasing edema and restricted diffusion. These changes are relate to bilateral adrenal hemorrhage previously described. Leukocytosis Thrombocytosis Chronic Xarelto use Left lower extremity DVT Unable to anticoagulate for LE DVT due to adrenal hemorrhage s/p IR for IVC filter placement today 01/16/17 MTFHR gene mutation positive, phosphatidylserine antibody titer elevated, lupus anticoagulant test abnormal. Hematology to decide regarding resuming heparin for full anticoagulation. Doubt infectious etiology. ID Dr. [place] UA negative. Procalcitonin normal 01/04 - blood cultures 2 - negative 01/04 - UA - negative 01/02 - blood cultures 2 - negative Hyponatremia - hypoosmolar 01/04 Cortisol level equivocal/F/u on cosyntropin test TSH was 1.12. Uric acid 3.0. f/u Lipid panel 2% NaCl infusion-discontinued Right lower extremity wound being managed by wound care. Prophylaxis - GI - Protonix - DVT - SCD/holding Xarelto in light adrenal hemorrhage. IVC filter 01/16/17. Will initiate subcutaneous heparin 5000 units every 8 hourly initially, if tolerated hematology to decide regarding advancing to full anticoagulation based on MRI results. Problem Qualifiers (1) Depression: (2) Leg wound, right: Qualified Code: S81.801D - Leg wound, right, subsequent encounter (3) Hypertension: Qualified Code: I10 - Essential hypertension Kimber Monroe MD January 18, 2017 17:07 Hyponatremia - hypoosmolar 01/04 Cortisol level equivocal/F/u on cosyntropin test TSH was 1.12. Uric acid 3.0. f/u Lipid panel 2% NaCl infusion-discontinued Continue 0.9 sodium chloride at 84 cc/hour-DCd now due to fluid overload Continue every 6 hours sodium level monitoring MSK: Right lower extremity wound Wound care evaluation Access - Utilize peripheral IV. Left subclavian 01/04. Radial a line removed 2 in 2 days , secondary to clotting Prophylaxis - GI - Protonix - DVT - SCD/holding Xarelto in light of possible adrenal hemorrhage. IVC filter 01/16/17. Will initiate subcutaneous heparin 5000 units every 8 hourly initially , if tolerated hematology to decide regarding advancing to full anticoagulation. Problem Qualifiers (1) Depression: (2) Leg wound, right: Qualified Code: S81.801D - Leg wound, right, subsequent encounter (3) Hypertension: Qualified Code: I10 - Essential hypertension Kimber Monroe MD January 18, 2017 17:07
--- NOTE | 2017-01-18 17:27 | HHI.GIFU ---
Subjective Remarks Tolerating diet. No n/v. Multiple bowel movements. No abdominal pain. Asking if he can go home. (Madelaine Velasquez) Objective Vitals I&O Vital Signs Date Time Temp Pulse Resp B/P Pulse Ox O2 Delivery O2 Flow Rate FiO2 01/18/17 16:00 98.8 104 16 137/74 98 01/18/17 12:00 99.3 96 17 161/80 93 01/18/17 09:52 93 01/18/17 09:52 Nasal Cannula 2.00 01/18/17 09:50 97 Nasal Cannula 2.00 01/18/17 08:00 98.6 96 16 159/82 97 01/18/17 04:00 98.9 90 18 120/73 97 01/18/17 00:00 99.0 89 18 133/72 98 01/18/17 00:00 Nasal Cannula 2.00 01/17/17 21:35 Nasal Cannula 2.00 40 01/17/17 21:14 98 Nasal Cannula 2.00 01/17/17 20:14 89 01/17/17 20:00 99.3 18 98 01/17/17 19:00 109 134/79 I/O 01/17/17 01/17/17 01/17/17 01/18/17 01/18/17 01/18/17 07:00 15:00 23:00 07:00 15:00 23:00 Intake Total 123 ml 1860 ml 240 ml 0 ml 960 ml Output Total 900 ml 750 ml 800 ml 400 ml Balance -777 ml 1110 ml -560 ml -400 ml 960 ml Intake Oral 1860 ml 240 ml 0 ml 960 ml IV Total 123 ml Output Urine Total 400 ml 550 ml 800 ml 400 ml Stool Total 500 ml 200 ml Laboratory Laboratory Tests Test 01/17/17 17:45 Stool C. difficile Toxin (PCR) NEGATIVE Stl C. difficile Toxin PRESUMPTIVE Epiderm 027 NEGATIVE Imaging Last Impressions Abdomen MRI 01/18/17 0000 Signed Impressions: Service Date/Time: Wednesday, January 18, 2017 10:36 - CONCLUSION: Evolving changes in the adrenal glands with evidence of increasing edema and restricted diffusion. These changes are relate to bilateral adrenal hemorrhage previously described. Significant potential for adrenal insufficiency should be considered. Distended gallbladder. No significant interval change. Matthew Aguirre MD Small Bowel X-Ray 01/16/17 Signed Impressions: Service Date/Time: Monday, January 16, 2017 15:58 - CONCLUSION: Unremarkable small bowel examination. Dk Benedict MD IVC Filter Placement X-Ray 01/16/17 Signed Impressions: Service Date/Time: Monday, January 16, 2017 10:36 - CONCLUSION: Uncomplicated inferior vena cava filter placement as above. Matthew Aguirre MD Chest X-Ray 01/15/17 Signed Impressions: Service Date/Time: Sunday, January 15, 2017 14:51 - CONCLUSION: Decreasing densities in the right lung. Dk Benedict MD Lower Extremity Ultrasound 01/12/17 Signed Impressions: Service Date/Time: Thursday, January 12, 2017 12:08 - CONCLUSION: 1. Deep venous thrombosis which is nonocclusive in the superficial femoral and popliteal veins. 2. Superficial venous thrombosis in the greatest saphenous vein. Tyler Nagy MD Abdomen/Pelvis CT 01/11/17 Signed Impressions: Service Date/Time: Wednesday, January 11, 2017 20:00 - CONCLUSION: 1. Subacute hemorrhage of both adrenal glands, not significantly changed on the left, smaller on the right. 2. Increased/new pleural fluid at both bases, new, small ascites, new body wall edema/anasarca. 3. No evidence of bowel obstruction. Nasogastric tube coiled in the stomach. 4. Patchy airspace consolidation of the right lung base, new. Santos Arce MD Head Magnetic Resonance Angiography 01/05/17 Signed Impressions: Service Date/Time: Thursday, January 05, 2017 14:37 - CONCLUSION: Normal examination. Esperanza Odell MD Head CT 01/04/17 0848 Signed Impressions: Service Date/Time: Wednesday, January 04, 2017 08:58 - CONCLUSION: Unremarkable examination for each. Tyler Nagy MD Neck CT 01/04/17 Signed Impressions: Service Date/Time: Wednesday, January 04, 2017 20:49 - CONCLUSION: Questionable thickening of the vocal cords. These can be directly inspected. Otherwise the study appears grossly normal for a noncontrast CT of the neck. Santos Whitley MD Chest CT 01/04/17 Signed Impressions: Service Date/Time: Wednesday, January 04, 2017 20:50 - CONCLUSION: 1. Mild bilateral pleural effusions with suspected accompanying areas of atelectasis or consolidation at the lung bases. 2. Coronary artery calcifications. Santos Whitley MD Brain MRI 01/04/17 0000 Signed Impressions: Service Date/Time: Wednesday, January 04, 2017 21:19 - CONCLUSION: Atrophy and mild chronic white matter changes. No acute infarct or other acute intracranial abnormality. Santos Arce MD Physical Exam HEENT: Normocephalic; atraumatic CHEST: Resp. even/unlabored, diminished bases CARDIAC: RRR ABDOMEN: Abdomen mildly distended (much improved), nontender, bowel sounds are hypoactive EXTREMITIES:3 -4 RLE edema SKIN: drsg rle STUDENT ASSISTANT: No focal deficits; alert and oriented to place and person, poor historian (Madelaine Velasquez) Assessment and Plan Plan ASSESSMENT: - Severe constipation/Ileus vs. PSBO. RESOLVED. CT scan abdomen and pelvis with iv contrast (01/04/17)----> new abnormal bowel gas pattern of concern for distal small bowel obstruction. New bilateral adrenal masses which were not present 2 days ago, the differential includes adrenal hemorrhage and or hyperplasia, new small pleural effusions right greater than left, mild diverticulosis. GS was consulted for possible small bowel obstruction and they feel this is more an ileus, as they could not find any significant transition point or decompressed bowel on imaging. He is on a bowel regimen of colace and senokot. Rpt. CT abdomen and pelvis without iv contrast (01/11/17)---> subacute hemorrhage of both adrenal glands, not significantly changed on the left, smaller on the right, increased/new pleural fluid at both bases, new small ascites, new body wall edema/anasarca. No evidence of bowel obstruction. Nasogastric tube coiled in the stomach, patchy airspace consolidation of the right lung base, new. GI consulted for severe constipation/ileus vs. PSBO. S/P SBFT (01/16/17)-----> Unremarkable small bowel examination. Reglan at reduced dose. Miralax. Much improved, tolerating regular diet, no n/v/pain. Multiple bowel movements. At some point, would benefit from colonoscopy, as he has never had one before. - AMS/Encephalopathy, improved. - RLE DVT. Not a candidate for anticoagulation secondary to subacute hemorrhage of adrenal gland, s/p IVC filter. - Resp. Failure/Bronchospasm, RESOLVED. s/p extubation. Per CCM - TIBURCIO with multiple electrolyte abnormalities. Creat 2.23 - Bilateral adrenal hemorrhage. CT as above. Abdomen MRI (01/05/17)----> The bilateral adrenal masses have developed since the CT abdomen from 01/02/2017 and the most likely etiologies includes bilateral adrenal hemorrhage or possibly reactive hyperplasia. The exact etiology is not certain Rpt. Abdomen MRI (01/18/17)----> Evolving changes in the adrenal glands with evidence of increasing edema and restricted diffusion. These changes are relate to bilateral adrenal hemorrhage previously described. Significant potential for adrenal insufficiency should be considered. Distended gallbladder. No significant interval change. PLAN: - Soft heart healthy diet - S/P SBFT- good results - Miralax - D/C Reglan - Colace - Senokot - GI will sign off - FU CAMERON 2 weeks - Ideally, he would benefit from colonoscopy once stable, as he has never had one. This can be done as outpatient - Pt seen and examined by Dr. Madrigal and myself and this note is written on his behalf (Madelaine Velasquez) Madelaine Velasquez January 18, 2017 17:27 Mary Madrigal MD January 18, 2017 17:47
--- NOTE | 2017-01-18 22:35 | PD.ONC.PN ---
Subjective Subjective Remarks resting comfortably no bleeding edematous lE f/u for DVT/adrenal hemorrhage Objective Data Date Time Temp Pulse Resp B/P Pulse Ox O2 Delivery O2 Flow Rate FiO2 01/18/17 20:00 96.0 107 19 170/89 98 01/18/17 16:00 98.8 104 16 137/74 98 01/18/17 12:00 99.3 96 17 161/80 93 01/18/17 09:52 93 01/18/17 09:52 Nasal Cannula 2.00 01/18/17 09:50 97 Nasal Cannula 2.00 01/18/17 08:00 98.6 96 16 159/82 97 01/18/17 04:00 98.9 90 18 120/73 97 01/18/17 00:00 99.0 89 18 133/72 98 01/18/17 00:00 Nasal Cannula 2.00 01/18/17 01/18/17 01/18/17 07:00 15:00 23:00 Intake Total 0 ml 960 ml Output Total 400 ml Balance -400 ml 960 ml Result Diagram: 01/17/17 0526 01/17/17 0526 Imaging Studies Last 24 hours Impressions Abdomen MRI 01/18/17 0000 Signed Impressions: Service Date/Time: Wednesday, January 18, 2017 10:36 - CONCLUSION: Evolving changes in the adrenal glands with evidence of increasing edema and restricted diffusion. These changes are relate to bilateral adrenal hemorrhage previously described. Significant potential for adrenal insufficiency should be considered. Distended gallbladder. No significant interval change. Matthew Aguirre MD Administered Medications Medications (Trade) Dose Ordered Sig/Jose Route PRN Reason Start Time Stop Time Status Last Admin Dose Admin Sodium Chloride (NS Flush) 2 ml BID IV FLUSH 01/04/17 21:00 01/18/17 08:52 Pantoprazole Sodium (Protonix Inj) 40 mg DAILY IV 01/05/17 09:00 01/18/17 08:50 Artificial Tears (Tears Naturale Opth Soln) 1 drop TID EACH EYE 01/04/17 18:00 01/18/17 14:40 Docusate Sodium (Colace) 100 mg BID PO 01/04/17 21:00 01/18/17 08:49 Chlorhexidine Gluconate Taper DAILY@04 TOP 01/05/17 04:00 01/01/18 03:59 01/17/17 03:51 Thiamine HCl/ Sodium Chloride (Thiamine Inj/NS Inj) 101 ml @ 101 mls/hr DAILY IV 01/05/17 09:00 01/18/17 08:51 Folic Acid (Folate) 1 mg DAILY PO 01/05/17 09:00 01/18/17 08:49 Multivitamins (Theragran) 1 tab DAILY PO 01/05/17 09:00 01/18/17 08:49 Labetalol HCl (Trandate Inj) 10 mg Q1HR PRN IV PUSH SBP>160, DBP>90, HR>65 01/04/17 15:30 01/16/17 07:22 Hydralazine HCl (Apresoline Inj) 10 mg Q1HR PRN IV PUSH SBP>160, DBP>90 01/04/17 15:30 01/17/17 07:20 Nitroglycerin (Nitroglycerin 2% Oint) 2 inch Q6HR PRN TOPICAL SBP>160, DBP>90 01/04/17 15:30 01/04/17 18:17 Chlorhexidine Gluconate 15 ml 15 ml BID@08,20 MT 01/05/17 08:00 01/15/17 08:00 Potassium Chloride 100 ml @ 50 mls/hr Q2H PRN IV For Potassium 2.8 - 3.2 mEq/L 01/06/17 15:00 01/16/17 15:10 Potassium Chloride 100 ml @ 25 mls/hr UNSCH PRN IV For Potassium 3.3 - 3.5 mEq/L 01/06/17 15:00 01/17/17 09:31 Sodium Phosphate/ Sodium Chloride (Sodium Phosphate Inj/NS 250 ml Inj) 250 ml @ 42 mls/hr UNSCH PRN IV For Phosphorus < 2.5 mg/dL 01/06/17 15:00 01/06/17 16:42 Hydrocortisone Sodium Succinate (SoluCORTEF INJ) 50 mg Q8HR IV PUSH 01/08/17 14:00 01/18/17 14:34 Metoprolol Tartrate (Lopressor) 50 mg Q12HR PO 01/09/17 21:00 01/18/17 08:49 Polyethylene Glycol (Miralax) 17 gm DAILY PO 01/17/17 09:00 01/17/17 08:32 Heparin Sodium (Porcine) (Heparin Inj) 5,000 units Q8HR SQ 01/17/17 10:00 01/18/17 14:35 Amlodipine Besylate (Norvasc) 10 mg DAILY PO 01/17/17 16:30 01/18/17 08:49 Clonidine (Catapres) 0.1 mg Q8HR PRN PO SBP>180 0r DBP>100 01/17/17 16:30 01/17/17 17:47 Objective Remarks GENERAL: nad SKIN: Warm and dry. NECK: Supple, trachea midline. No JVD or lymphadenopathy. LYMPHATIC: No adenopathy. CARDIOVASCULAR: Regular rate and rhythm without murmurs. RESPIRATORY: Breath sounds equal bilaterally. No accessory muscle use. GASTROINTESTINAL: Abdomen soft, non-tender, nondistended. EXTREMITIES: No cyanosis, edematous Assessment/Plan Problem List: (1) DVT (deep venous thrombosis) Status: Acute Plan: -- Pt not a candidate for anticoagulation due to subacute hemorrhages of the adrenal gland. -- s/p IVC filter placement on 01/16/17 Assessment 76 y/o male admitted for AMS who went into respiratory failure; Hematology consulted for RLE DVT with bilateral adrenal hemorrhages. Plan 1. s/p IVC filter placement. 2. Hb stable. On heparin prophylactic dose. 3. MRI shows persistent adrenal edema /? hemorrhage 4. Hold off on full anti-coagulation 5.check cbc in Anatoliy Prince MD January 18, 2017 22:35
[2017-01-19] VITALS (11 sets, daily range): BP systolic 168–178; BP diastolic 89–96; PULSE 88–101; RESP 18–21; TEMP 97.7–99.5; O2SAT 93–98
[2017-01-19] MEDS: RESP: ALBUTEROL 2.5 MG/IPRATROPIUM 0.5 MG NEB (SCH) NEB ×4 (03:31→21:25)
[2017-01-19] MEDS: CHLORHEXIDINE GLUCONATE 2 % 1 PACK (2 CLOTHS) TOP SCH (04:00)
[2017-01-19] MEDS: INSULIN NovoLIN REGULAR SUPPLEMENTAL SCALE SQ SCH ×3 (04:10→17:35)
[2017-01-19] MEDS: HEPARIN SODIUM - SQ 10,000 UNITS/ML VIAL SQ SCH ×3 (04:11→21:02)
[2017-01-19] MEDS: HYDROCORTISONE SOD SUCCINATE 100 MG VIAL IV PUSH SCH ×2 (04:12→21:03)
[2017-01-19] MEDS: CHLORHEXIDINE 0.12% (ORAL KIT) 15 ML CUP MT SCH ×2 (08:00→20:00)
[2017-01-19] MEDS: DOCUSATE SODIUM 100 MG CAP PO SCH ×2 (08:40→21:02)
[2017-01-19] MEDS: FOLIC ACID 1 MG TAB PO SCH (08:40)
[2017-01-19] MEDS: METOPROLOL TARTRATE 25 MG TAB PO SCH ×2 (08:40→21:02)
[2017-01-19] MEDS: SODIUM CHLORIDE 0.9% FLUSH 10 ML FLUSH IV FLUSH SCH ×2 (08:40→21:04)
[2017-01-19] MEDS: MULTIVITAMIN TAB PO SCH (08:40)
[2017-01-19] MEDS: POLYETHYLENE GLYCOL 17 GM PKG PO SCH (08:41)
[2017-01-19] MEDS: PANTOPRAZOLE SODIUM 40 MG VIAL IV SCH (08:41)
[2017-01-19] MEDS: THIAMINE INJ 100 MG in SODIUM CHLORIDE 0.9% INJ 100 ML IV SCH (08:42)
[2017-01-19] MEDS: ARTIFICIAL TEARS OPTH SOLN 15 ML BTL EACH EYE SCH ×3 (08:42→17:42)
--- NOTE | 2017-01-19 08:43 | HHI.PR ---
Subjective Remarks Pt feeling well. Having breakfast. Denies any abdominal pain, CP/SOB/N/V Objective Vitals Vital Signs Date Time Temp Pulse Resp B/P Pulse Ox O2 Delivery O2 Flow Rate FiO2 01/19/17 04:00 98.2 88 19 169/91 98 01/19/17 03:10 101 01/19/17 00:14 Nasal Cannula 2.00 01/19/17 00:00 97.7 93 18 176/90 97 01/18/17 22:50 98 Nasal Cannula 2.00 01/18/17 20:00 96.0 107 19 170/89 98 01/18/17 16:00 98.8 104 16 137/74 98 01/18/17 12:00 99.3 96 17 161/80 93 01/18/17 09:52 93 01/18/17 09:52 Nasal Cannula 2.00 01/18/17 09:50 97 Nasal Cannula 2.00 I/O 01/18/17 01/18/17 01/18/17 01/19/17 01/19/17 01/19/17 07:00 15:00 23:00 07:00 15:00 23:00 Intake Total 0 ml 960 ml 480 ml 240 ml Output Total 400 ml 500 ml 550 ml Balance -400 ml 960 ml -20 ml -310 ml Intake Oral 0 ml 960 ml 480 ml 240 ml Output Urine Total 400 ml 500 ml 550 ml # Bowel Movements 2 Result Diagram: 01/17/17 0526 01/17/17 05 Imaging Last Impressions Abdomen MRI 01/18/17 0000 Signed Impressions: Service Date/Time: Wednesday, January 18, 2017 10:36 - CONCLUSION: Evolving changes in the adrenal glands with evidence of increasing edema and restricted diffusion. These changes are relate to bilateral adrenal hemorrhage previously described. Significant potential for adrenal insufficiency should be considered. Distended gallbladder. No significant interval change. Matthew Aguirre MD Small Bowel X-Ray 01/16/17 0000 Signed Impressions: Service Date/Time: Monday, January 16, 2017 15:58 - CONCLUSION: Unremarkable small bowel examination. Dk Benedict MD IVC Filter Placement X-Ray 01/16/17 0000 Signed Impressions: Service Date/Time: Monday, January 16, 2017 10:36 - CONCLUSION: Uncomplicated inferior vena cava filter placement as above. Matthew Aguirre MD Chest X-Ray 01/15/17 Signed Impressions: Service Date/Time: Sunday, January 15, 2017 14:51 - CONCLUSION: Decreasing densities in the right lung. Dk Benedict MD Lower Extremity Ultrasound 01/12/17 Signed Impressions: Service Date/Time: Thursday, January 12, 2017 12:08 - CONCLUSION: 1. Deep venous thrombosis which is nonocclusive in the superficial femoral and popliteal veins. 2. Superficial venous thrombosis in the greatest saphenous vein. Tyler Nagy MD Abdomen/Pelvis CT 01/11/17 Signed Impressions: Service Date/Time: Wednesday, January 11, 2017 20:00 - CONCLUSION: 1. Subacute hemorrhage of both adrenal glands, not significantly changed on the left, smaller on the right. 2. Increased/new pleural fluid at both bases, new, small ascites, new body wall edema/anasarca. 3. No evidence of bowel obstruction. Nasogastric tube coiled in the stomach. 4. Patchy airspace consolidation of the right lung base, new. Santos Arce MD Head Magnetic Resonance Angiography 01/05/17 Signed Impressions: Service Date/Time: Thursday, January 05, 2017 14:37 - CONCLUSION: Normal examination. Esperanza Odell MD Head CT 01/04/17 0848 Signed Impressions: Service Date/Time: Wednesday, January 04, 2017 08:58 - CONCLUSION: Unremarkable examination for each. Tyler Nagy MD Neck CT 01/04/17 Signed Impressions: Service Date/Time: Wednesday, January 04, 2017 20:49 - CONCLUSION: Questionable thickening of the vocal cords. These can be directly inspected. Otherwise the study appears grossly normal for a noncontrast CT of the neck. Santos Whitley MD Chest CT 01/04/17 Signed Impressions: Service Date/Time: Wednesday, January 04, 2017 20:50 - CONCLUSION: 1. Mild bilateral pleural effusions with suspected accompanying areas of atelectasis or consolidation at the lung bases. 2. Coronary artery calcifications. Santos Whitley MD Brain MRI 01/04/17 Signed Impressions: Service Date/Time: Wednesday, January 04, 2017 21:19 - CONCLUSION: Atrophy and mild chronic white matter changes. No acute infarct or other acute intracranial abnormality. Santos Arce MD Objective Remarks GENERAL: 76-year-old male, now on NC. CARDIOVASCULAR: RRR w no murmurs RESPIRATORY: On NC. Clear to auscultation bilaterally. GASTROINTESTINAL: Abdomen remains distended. No guarding. Nontender. Active bowel sounds. MUSCULOSKELETAL: Bilateral lower extremity edema. R>L NEUROLOGICAL: alert and oriented, follows commands, eating breakfast Date of Insertion: Jan 04, 2017 Date of Insertion: Jan 04, 2017 Side: Left Location: Subclavian A/P Problem List: (1) Thrombocytosis ICD Code: D47.3 Status: Acute (2) Depression ICD Code: F32.9 Status: Acute (3) Anticoagulant long-term use ICD Code: Z79.01 Status: Acute (4) Leg wound, right ICD Code: S81.801A Status: Acute (5) Hypo-osmolality and hyponatremia ICD Code: E87.1 Status: Acute (6) Hyperglycemia ICD Code: R73.9 Status: Acute (7) Hypertension ICD Code: I10 Status: Acute (8) Abdominal pain ICD Code: R10.9 Status: Acute (9) DVT (deep venous thrombosis) ICD Code: I82.409 Status: Acute (10) Leukocytosis ICD Code: D72.829 Status: Acute (11) Distended abdomen ICD Code: R14.0 Status: Acute Assessment and Plan Acute toxic metabolic encephalopathy-resolving History of EtOH Depression/anxiety off sedation. CT head 01/04 reveals no acute intracranial abnormalities will resume bupropion 150 mg by mouth daily, Hold Ultram and Percocet as he has no comlaints of pain at this time. Thiamine/folate/multivitamin daily with EtOH use. switch all to po MRI/A brain 01/05- normal exam Right lower extremity DVT Fluid overload Hypertension As needed hydralazine/labetalol/Nitropaste to maintain systolic blood pressure was 160 on Lopressor 25 mg BID- 01/05 right lower extremity Dopplers ultrasound for DVT-partially occlusive thrombus right SFA, popliteal and peroneal veins Status post IVC filter placement on 01/16 Hematology following pt and recommends against full dose anticoagulation but is agreeable to prophylactic dosage Acute hypoxic respiratory failure requiring intubation Extubated 01/15/17 Required intubation 01/05 for labored breathing due to bronchospasm. Extubated 01/13 but had to be reintubated Ileus CT abd/pelvis 01/04 revealed right 3.6 x 2.4 cm and left 2.5 x 1.4 cm adrenal masses. Distal esophagus with thickening. Dilated stomach. Colonic Diverticuli. Compressed colon. Possible bowel obstruction. Dr. Saleh/general surgery consulted-medical management at this time. Small bowel follow-through done on 01/16 was unremarkable. MRI suggested bilateral adrenal hemorrhage - hypercoagulable workup in progress and being followed by hematology. Negative ultrasound gallbladder 01/02 clinically tolerating diet thus far. Acute kidney injury Proteinuria IMPROVING Patient states he needed kidney biopsy in past but refused Accurate I's and O's Monitor urine output ADH elevated, ACTH normal range B/L adrenal hemorrhage See CT abdomen/pelvis Follow-up on adrenal insufficiency workup. Positive antiphospholipid use Silvadene antibody, heterozygous state for MTHFR gene mutation, abnormal lupus anticoagulant test ADH elevated, ACTH normal range Noted hypertensive. Potassium low normal. BMP ordered start weaning hydrocortisone 50 mg 3 times a day and to 50mg BID. caution and consider renal insufficiency. Sliding-scale insulin with Accu-Cheks to maintain euglycemia/low regimen MRI Evolving changes in the adrenal glands with evidence of increasing edema and restricted diffusion. These changes are relate to bilateral adrenal hemorrhage previously described. Leukocytosis Thrombocytosis Chronic Xarelto use Left lower extremity DVT Unable to anticoagulate for LE DVT due to adrenal hemorrhage s/p IR for IVC filter placement today 01/16/17 MTFHR gene mutation positive, phosphatidylserine antibody titer elevated, lupus anticoagulant test abnormal. Hematology to decide regarding resuming heparin for full anticoagulation. Doubt infectious etiology. ID Dr. Salinas. monitor clinically and currently not on abx UA negative. Procalcitonin normal 01/04 - blood cultures 2 - negative 01/04 - UA - negative 01/02 - blood cultures 2 - negative Hyponatremia - hypoosmolar- now hypernatremic, f/u sodium levels 01/04 Cortisol level equivocal/F/u on cosyntropin test TSH was 1.12. Uric acid 3.0. f/u Lipid panel 2% NaCl infusion-discontinued Right lower extremity wound being managed by wound care. Prophylaxis - GI - Protonix - DVT - SCD/holding Xarelto in light adrenal hemorrhage. IVC filter 01/16/17. on subcutaneous heparin 5000 units every 8 hourly and toleration it well thus far. Discharge Planning pending further work-up and clinical improvement Problem Qualifiers (1) Depression: (2) Leg wound, right: Qualified Code: S81.801D - Leg wound, right, subsequent encounter (3) Hypertension: Qualified Code: I10 - Essential hypertension Elodia Watts MD January 19, 2017 08:43
[2017-01-19 10:11] LABS: AUTOMATED NEUTROPHIL # 17.6 TH/MM3 (1.8-7.7); BASOPHIL # 0.1 TH/MM3 (0-0.2); BASOPHIL % 0.4 % (0.0-2.0); HEMATOCRIT 27.3 % (39.0-51.0); HEMO FLAGS DIFF FINAL; LYMPH % 2.5 % (9.0-44.0); LYMPHOCYTE # 0.5 TH/MM3 (1.0-4.8); MEAN CELL VOLUME 88.7 FL (80.0-100.0); MEAN CORPUSCULAR HEMOGLOBIN 30.6 PG (27.0-34.0); MEAN CORPUSCULAR HGB CONC 34.5 % (32.0-36.0); MONO % 2.8 % (0.0-8.0); NEUT % 94.3 % (16.0-70.0); PLATELET COUNT 259 TH/MM3 (150-450); RED BLOOD COUNT 3.08 MIL/MM3 (4.50-5.90); RED CELL DISTRIBUTION WIDTH 16.1 % (11.6-17.2); WHITE BLOOD COUNT 18.7 TH/MM3 (4.0-11.0)
[2017-01-19 10:52] LABS: BICARBONATE 28.3 MEQ/L (21.0-32.0); POTASSIUM 3.6 MEQ/L (3.5-5.1)
--- NOTE | 2017-01-19 13:08 | HHI.PR ---
Addendum to Inpatient Note Additional Information Stool for C.diff negative afebrile No active ID issues off abx - ID will sign off; please reconsutl for any new issues Ilana Salinas MD January 19, 2017 13:08
--- NOTE | 2017-01-19 14:23 | PD.CONS ---
Provisional Diagnosis Admission Date Jan 04, 2017 at 11:37 [place] I. Dementia Alzheimer's type with delirium G 30.1, delirium due to medical condition F05 History of Present Illness Service Psychiatry Consult Requested By Attending Toshia. Reason for Consult Assessment Primary Care Physician Unknown HPI Patient is 76-year-old white male initially admitted in of December this year with small bowel obstruction has had issues related to that since then. Asked to see patient to assess for capacity. At the present time patient laying quietly in his [facility] room RN present throughout session. Patient is stockily built white male fairly long white hair and full white mustache. He is calm and pleasant with me on is oriented to person place its [facility] 2016 and May is also diffusely confused when asked more specific questions about location residents living situation. He is showing marked approximations rationalizations related to this. These vague about any prior psychiatric contact or hospitalizations he denies past suicidality homicidality voices or visions. Is vague about any prior alcohol or drug use. He states she 's never been and has no children. When asked about where he would live after discharge she asked that we make phone calls for him to help him find a placement. Patient does state he feels his thinking somewhat clear and better now than upon admission. Patient appears cooperative with the staff at this time. In any event at the present time I feel patient does show some significant confusion though this may be the result of a delirium that is slowly resolving. MRI done earlier in the admission showed some cerebral atrophy. I question of the might be a degree of dementia also underlying this. Thus I would recommend further observation. His behaviors developed Alyssa psychotropic. The does show some vague paranoia when talking about friends" they may have some of. Motive towards him. I do think cyanide case hardener needs investigate this man's living situation placement in some type of a nursing home facility might be appropriate. Thus I do feel he does not have the capacity at the present time make decisions concerning his care though this may change as he recovers. Thanks for consult will follow on a as needed basis Review of Systems ROS Limitations: Clinical Condition, Altered Mental Status Past Family Social History Coded Allergies: No Known Allergies (Unverified , 01/02/17) Past Medical History Please see med surge assessments Active Scripts Levofloxacin (Levaquin)750 Mg [id number] Mg PO DAILY@11 #5 TAB Prov:Sayess,Patric. DO 01/03/17 Reported Medications Oxycodone-Acetaminophen (Percocet)5-325 mg Tab1 Tab PO Q8HR PRN (PAIN) Ref 0 01/04/17 Tramadol 50 Mg Tab50 Mg PO Q6H PRN (PAIN) Ref 0 01/04/17 Metoclopramide (Reglan)10 Mg Tab10 Mg PO TIDAC Ref 0 01/04/17 Bupropion HCl ER 24 HR 150 Mg [id number] Mg PO DAILY Ref 0 01/04/17 Losartan 25 Mg Tab25 Mg PO BID #30 TAB Ref 0 01/04/17 Rivaroxaban (Xarelto)10 Mg Tab10 Mg PO DAILY Ref 0 01/02/17 Current Medications Medications (Trade) Dose Ordered Sig/Jose Route Start Time Stop Time Status Last Admin (NS Flush) 2 ml UNSCH PRN IV FLUSH 01/04/17 14:45 (NS Flush) 2 ml BID IV FLUSH 01/04/17 21:00 01/19/17 08:40 (Tylenol) 650 mg Q6H PRN PO 01/04/17 14:45 (Protonix Inj) 40 mg DAILY IV 01/05/17 09:00 01/19/17 08:41 (Tears Naturale Opth Soln) 1 drop TID EACH EYE 01/04/17 18:00 01/19/17 08:42 (Zofran Inj) 4 mg Q6H PRN IV 01/04/17 14:45 (Colace) 100 mg BID PO 01/04/17 21:00 01/19/17 08:40 (Senokot) 17.2 mg Q12H PRN PO 01/04/17 14:45 Miscellaneous Information 1 Q361D XX 01/04/17 14:45 (Chlorhexidine 2% Cloth) Taper DAILY@04 TOP 01/05/17 04:00 01/01/18 03:59 01/17/17 03:51 (Chlorhexidine 2% Cloth) 3 pack UNSCH PRN TOP 01/04/17 14:45 (Folate) 1 mg DAILY PO 01/05/17 09:00 01/19/17 08:40 (Theragran) 1 tab DAILY PO 01/05/17 09:00 01/19/17 08:40 (Trandate Inj) 10 mg Q1HR PRN IV PUSH 01/04/17 15:30 01/16/17 07:22 (Nitroglycerin 2% Oint) 2 inch Q6HR PRN TOPICAL 01/04/17 15:30 01/04/17 18:17 (D50w (Vial) Inj) 25 ml UNSCH PRN IV PUSH 01/04/17 19:15 (Glucagon Inj) 1 mg UNSCH PRN OTHER 01/04/17 19:15 (Peridex 0.12% Liq) 15 ml BID@08,20 MT 01/05/17 08:00 01/15/17 08:00 (Brethine Inj) 1 mg UNSCH PRN SQ 01/05/17 04:30 (Pill Splitter) 1 ea UNSCH PRN OTHER 01/08/17 11:30 (Lopressor) 50 mg Q12HR PO 01/09/17 21:00 01/19/17 08:40 (Miralax) 17 gm DAILY PO 01/17/17 09:00 01/19/17 08:41 (Heparin Inj) 5,000 units Q8HR SQ 01/17/17 10:00 01/19/17 04:11 (Norvasc) 10 mg DAILY PO 01/17/17 16:30 01/19/17 08:40 (Catapres) 0.1 mg Q8HR PRN PO 01/17/17 16:30 01/17/17 17:47 (Apresoline) 10 mg Q6HR PRN PO 01/19/17 08:45 (Wellbutrin Xl 24 Hr) 150 mg DAILY PO 01/20/17 09:00 (Vitamin B1) 100 mg DAILY PO 01/20/17 09:00 (SoluCORTEF INJ) 50 mg Q12HR IV PUSH 01/19/17 21:00 Family History Unknown at this time Social History Patient single states has no children states he may live [facility] Patient's Strengths (min. 2) Patient verbal able axis health care Physical Exam Please see med [facility] assessments Vital Signs Vital Signs Date Time Temp Pulse Resp B/P Pulse Ox O2 Delivery O2 Flow Rate FiO2 01/19/17 11:50 99.5 95 20 168/89 97 01/19/17 09:09 Nasal Cannula 2.00 01/17/17 21:35 40 I/O 01/18/17 01/18/17 01/19/17 08:00 16:00 00:00 Intake Total 0 ml 960 ml 480 ml Output Total 400 ml 500 ml Balance -400 ml 960 ml -20 ml Mental Status Examination Alert stockily built white male appears stated age she is calm cooperative with me is somewhat guarded and vigilant with fair eye contact Appearance Clean and neat Speech: Circumstantial, Tangential Orientation: x3 (though also some vague diffuse confusion approximations and rationalizations) Thought Process: Linear, Loose Association Thought Content: Paranoid (vaguely) Language Polish Fund of Knowledge Poor Hallucination Type: None (denies) Attention and Concentration: Other (poor) Suicidal Ideation: No (deny) Previous Suicide Attempts: No (denies) Homicidal Ideation: No (denies) Previous Homicide Attempts: No (denies) Insight: Poor Judgment: Poor Affect: Other (slight increase range intensity) Mood: Euthymic (mildly irritable and vigilant) Motor Activity: Normal gait (patient seen in bed unable to ascertain gait) Assessment & Plan Problem List: (1) Delirium due to another medical condition ICD Code: F05 (2) Dementia of the Alzheimer's type, with late onset, with delirium ICD Code: G30.1 Assessment & Plan Estimated LOS: days patient showing some confusional state that may be related to a delirium perhaps with an underlying dementia. I feel at this time he does not have capacity to make appropriate decisions though this also may change. I feel also he may best be served with a possible placement in a nursing home facility after this hospitalization thinks the consult will follow-up on a as- needed basis Discharge Planning To be determined by treatment team Santos Banda MD January 19, 2017 14:23
[2017-01-20] VITALS (10 sets, daily range): BP systolic 170–175; BP diastolic 89–105; PULSE 73–96; RESP 17–22; TEMP 98.2–99.2; O2SAT 97–99
[2017-01-20] MEDS: RESP: ALBUTEROL 2.5 MG/IPRATROPIUM 0.5 MG NEB (SCH) NEB ×2 (03:36→08:36)
[2017-01-20] MEDS: CHLORHEXIDINE GLUCONATE 2 % 1 PACK (2 CLOTHS) TOP SCH (04:00)
[2017-01-20] MEDS: HEPARIN SODIUM - SQ 10,000 UNITS/ML VIAL SQ SCH ×3 (06:00→20:57)
[2017-01-20 06:02] LABS: AUTOMATED NEUTROPHIL # 14.3 TH/MM3 (1.8-7.7); BASOPHIL # 0.1 TH/MM3 (0-0.2); BASOPHIL % 0.4 % (0.0-2.0); EOSINOPHIL # 0.1 TH/MM3 (0-0.4); EOSINOPHIL % 0.5 % (0.0-4.0); HEMATOCRIT 27.9 % (39.0-51.0); HEMO FLAGS DIFF FINAL; LYMPH % 4.3 % (9.0-44.0); LYMPHOCYTE # 0.7 TH/MM3 (1.0-4.8); MEAN CELL VOLUME 89.3 FL (80.0-100.0); MEAN CORPUSCULAR HEMOGLOBIN 29.9 PG (27.0-34.0); MEAN CORPUSCULAR HGB CONC 33.5 % (32.0-36.0); MONO % 3.8 % (0.0-8.0); PLATELET COUNT 305 TH/MM3 (150-450); RED BLOOD COUNT 3.12 MIL/MM3 (4.50-5.90); RED CELL DISTRIBUTION WIDTH 15.8 % (11.6-17.2); WHITE BLOOD COUNT 15.7 TH/MM3 (4.0-11.0)
[2017-01-20] MEDS: INSULIN NovoLIN REGULAR SUPPLEMENTAL SCALE SQ SCH ×4 (06:16→20:48)
[2017-01-20 06:27] LABS: BICARBONATE 29.8 MEQ/L (21.0-32.0)
[2017-01-20] MEDS: CHLORHEXIDINE 0.12% (ORAL KIT) 15 ML CUP MT SCH ×2 (08:00→20:00)
[2017-01-20] MEDS: METOPROLOL TARTRATE 25 MG TAB PO SCH ×2 (08:41→20:54)
[2017-01-20] MEDS: FOLIC ACID 1 MG TAB PO SCH (08:41)
[2017-01-20] MEDS: POLYETHYLENE GLYCOL 17 GM PKG PO SCH (08:41)
[2017-01-20] MEDS: buPROPion HCL 150 MG EXTENDED RELEASE TAB PO SCH (08:42)
[2017-01-20] MEDS: THIAMINE HCL 100 MG TAB PO SCH (08:42)
[2017-01-20] MEDS: DOCUSATE SODIUM 100 MG CAP PO SCH ×2 (08:42→20:54)
[2017-01-20] MEDS: MULTIVITAMIN TAB PO SCH (08:42)
[2017-01-20] MEDS: HYDROCORTISONE SOD SUCCINATE 100 MG VIAL IV PUSH SCH ×2 (08:43→20:55)
[2017-01-20] MEDS: PANTOPRAZOLE SODIUM 40 MG VIAL IV SCH (08:43)
[2017-01-20] MEDS: SODIUM CHLORIDE 0.9% FLUSH 10 ML FLUSH IV FLUSH SCH ×2 (08:45→20:55)
[2017-01-20] MEDS: ARTIFICIAL TEARS OPTH SOLN 15 ML BTL EACH EYE SCH ×3 (08:50→17:45)
[2017-01-20] MEDS ORDERED: hydrALAZINE HCL 25 MG TAB PO ONE (10:00)
--- NOTE | 2017-01-20 10:44 | HHI.PR ---
Subjective Remarks No complaints today. had a good breakfast. No CP/SOB/N/V Objective Vitals Vital Signs Date Time Temp Pulse Resp B/P Pulse Ox O2 Delivery O2 Flow Rate FiO2 01/20/17 08:50 87 01/20/17 08:50 Nasal Cannula 2.00 01/20/17 08:36 98 Nasal Cannula 2.00 01/20/17 07:50 98.3 83 20 175/93 98 01/20/17 04:00 98.3 83 22 175/94 98 01/20/17 03:38 99 Nasal Cannula 2.00 01/20/17 00:00 98.2 91 20 170/89 97 01/19/17 23:18 93 01/19/17 23:18 Nasal Cannula 2.00 21 01/19/17 20:00 98.8 98 21 174/96 93 01/19/17 15:50 99.2 97 20 178/96 95 01/19/17 15:20 95 21 01/19/17 11:50 99.5 95 20 168/89 97 I/O 01/19/17 01/19/17 01/19/17 01/20/17 01/20/17 01/20/17 07:00 15:00 23:00 07:00 15:00 23:00 Intake Total 240 ml 450 ml 480 ml 240 ml Output Total 550 ml 475 ml 900 ml 550 ml Balance -310 ml -25 ml -420 ml -310 ml Intake Oral 240 ml 450 ml 480 ml 240 ml Output Urine Total 550 ml 475 ml 900 ml 550 ml # Bowel Movements 2 2 1 Result Diagram: 01/20/17 0445 01/20/17 0445 Imaging Last Impressions Abdomen MRI 01/18/17 0000 Signed Impressions: Service Date/Time: Wednesday, January 18, 2017 10:36 - CONCLUSION: Evolving changes in the adrenal glands with evidence of increasing edema and restricted diffusion. These changes are relate to bilateral adrenal hemorrhage previously described. Significant potential for adrenal insufficiency should be considered. Distended gallbladder. No significant interval change. Matthew Aguirre MD Small Bowel X-Ray 01/16/17 0000 Signed Impressions: Service Date/Time: Monday, January 16, 2017 15:58 - CONCLUSION: Unremarkable small bowel examination. Dk Benedict MD IVC Filter Placement X-Ray 01/16/17 0000 Signed Impressions: Service Date/Time: Monday, January 16, 2017 10:36 - CONCLUSION: Uncomplicated inferior vena cava filter placement as above. Matthew Aguirre MD Chest X-Ray 01/15/17 Signed Impressions: Service Date/Time: Sunday, January 15, 2017 14:51 - CONCLUSION: Decreasing densities in the right lung. Dk Benedict MD Lower Extremity Ultrasound 01/12/17 Signed Impressions: Service Date/Time: Thursday, January 12, 2017 12:08 - CONCLUSION: 1. Deep venous thrombosis which is nonocclusive in the superficial femoral and popliteal veins. 2. Superficial venous thrombosis in the greatest saphenous vein. Tyler Nagy MD Abdomen/Pelvis CT 01/11/17 Signed Impressions: Service Date/Time: Wednesday, January 11, 2017 20:00 - CONCLUSION: 1. Subacute hemorrhage of both adrenal glands, not significantly changed on the left, smaller on the right. 2. Increased/new pleural fluid at both bases, new, small ascites, new body wall edema/anasarca. 3. No evidence of bowel obstruction. Nasogastric tube coiled in the stomach. 4. Patchy airspace consolidation of the right lung base, new. Santos Arce MD Head Magnetic Resonance Angiography 01/05/17 Signed Impressions: Service Date/Time: Thursday, January 05, 2017 14:37 - CONCLUSION: Normal examination. Esperanza Odell MD Head CT 01/04/17 0848 Signed Impressions: Service Date/Time: Wednesday, January 04, 2017 08:58 - CONCLUSION: Unremarkable examination for each. Tyler Nagy MD Neck CT 01/04/17 Signed Impressions: Service Date/Time: Wednesday, January 04, 2017 20:49 - CONCLUSION: Questionable thickening of the vocal cords. These can be directly inspected. Otherwise the study appears grossly normal for a noncontrast CT of the neck. Santos Whitley MD Chest CT 01/04/17 Signed Impressions: Service Date/Time: Wednesday, January 04, 2017 20:50 - CONCLUSION: 1. Mild bilateral pleural effusions with suspected accompanying areas of atelectasis or consolidation at the lung bases. 2. Coronary artery calcifications. Santos Whitley MD Brain MRI 4/28/17 0000 Signed Impressions: Service Date/Time: Wednesday, January 04, 2017 21:19 - CONCLUSION: Atrophy and mild chronic white matter changes. No acute infarct or other acute intracranial abnormality. Santos Arce MD Objective Remarks GENERAL: 76-year-old male, now on NC. CARDIOVASCULAR: RRR w no murmurs RESPIRATORY: On NC. Clear to auscultation bilaterally. GASTROINTESTINAL: Abdomen remains distended. No guarding. Nontender. Active bowel sounds. MUSCULOSKELETAL: Bilateral lower extremity edema. R>L NEUROLOGICAL: alert and oriented, follows commands, eating breakfast Date of Insertion: Jan 04, 2017 Date of Insertion: Jan 04, 2017 Side: Left Location: Subclavian A/P Problem List: (1) Thrombocytosis ICD Code: D47.3 Status: Acute (2) Depression ICD Code: F32.9 Status: Acute (3) Anticoagulant long-term use ICD Code: Z79.01 Status: Acute (4) Leg wound, right ICD Code: S81.801A Status: Acute (5) Hypo-osmolality and hyponatremia ICD Code: E87.1 Status: Acute (6) Hyperglycemia ICD Code: R73.9 Status: Acute (7) Hypertension ICD Code: I10 Status: Acute (8) Abdominal pain ICD Code: R10.9 Status: Acute (9) DVT (deep venous thrombosis) ICD Code: I82.409 Status: Acute (10) Leukocytosis ICD Code: D72.829 Status: Acute (11) Distended abdomen ICD Code: R14.0 Status: Acute Assessment and Plan Acute toxic metabolic encephalopathy-resolving History of EtOH Depression/anxiety off sedation. CT head 01/04 reveals no acute intracranial abnormalities on bupropion 150 mg by mouth daily, Hold Ultram and Percocet as he has no complaints of pain at this time. po Thiamine/folate/multivitamin daily with EtOH use. MRI/A brain 01/05- normal exam Right lower extremity DVT Fluid overload Hypertension As needed hydralazine/labetalol/Nitropaste to maintain systolic blood pressure was 160 on Lopressor 25 mg BID-added hydralazine scheduled 25mg po q8hrs 01/05 right lower extremity Dopplers ultrasound for DVT-partially occlusive thrombus right SFA, popliteal and peroneal veins Status post IVC filter placement on 01/16 Hematology following pt and recommends against full dose anticoagulation but is agreeable to prophylactic dosage Acute hypoxic respiratory failure requiring intubation Extubated 01/15/17 Required intubation 01/05 for labored breathing due to bronchospasm. Extubated 01/13 but had to be reintubated Ileus CT abd/pelvis 01/04 revealed right 3.6 x 2.4 cm and left 2.5 x 1.4 cm adrenal masses. Distal esophagus with thickening. Dilated stomach. Colonic Diverticuli. Compressed colon. Possible bowel obstruction. Dr. Saleh/general surgery consulted-medical management at this time. Small bowel follow-through done on 01/16 was unremarkable. MRI suggested bilateral adrenal hemorrhage - hypercoagulable workup in progress and being followed by hematology. Negative ultrasound gallbladder 01/02 clinically tolerating diet thus far. Acute kidney injury Proteinuria IMPROVING Patient states he needed kidney biopsy in past but refused Accurate I's and O's Monitor urine output ADH elevated, ACTH normal range B/L adrenal hemorrhage See CT abdomen/pelvis Follow-up on adrenal insufficiency workup. Positive antiphospholipid use Silvadene antibody, heterozygous state for MTHFR gene mutation, abnormal lupus anticoagulant test ADH elevated, ACTH normal range Noted hypertensive. Potassium low normal. BMP ordered continue weaning hydrocortisone 50 mg 3 times a day and to 50mg BID, decrease today to 25mg IV BID. caution and consider renal insufficiency. Sliding-scale insulin with Accu-Cheks to maintain euglycemia/low regimen MRI Evolving changes in the adrenal glands with evidence of increasing edema and restricted diffusion. These changes are relate to bilateral adrenal hemorrhage previously described. Leukocytosis Thrombocytosis Chronic Xarelto use Left lower extremity DVT Unable to anticoagulate for LE DVT due to adrenal hemorrhage s/p IR for IVC filter placement today 01/16/17 MTFHR gene mutation positive, phosphatidylserine antibody titer elevated, lupus anticoagulant test abnormal. Hematology to decide regarding resuming heparin for full anticoagulation. Doubt infectious etiology. ID Dr. Salinas reviewed chart and no abx, she has signed off UA negative. Procalcitonin normal 01/04 - blood cultures 2 - negative 01/04 - UA - negative 01/02 - blood cultures 2 - negative Hyponatremia - hypoosmolar- now hypernatremic, resolved Na 139 today 01/04 Cortisol level equivocal TSH was 1.12. Uric acid 3.0. f/u Lipid panel 2% NaCl infusion-discontinued Right lower extremity wound being managed by wound care. Psychiatry evaluated the patient and he does not have capacity to make appropriate decisions, recommendations are for [facility] a [facility]. PT also following pt and recommend PT at rehab Prophylaxis - GI - Protonix - DVT - SCD/holding Xarelto in light adrenal hemorrhage. IVC filter 01/16/17. on subcutaneous heparin 5000 units every 8 hourly and toleration it well thus far. Discharge Planning continue to wean pt off IV solucortef. CM to assist w d/c planning, possible SNF. Problem Qualifiers (1) Depression: (2) Leg wound, right: Qualified Code: S81.801D - Leg wound, right, subsequent encounter (3) Hypertension: Qualified Code: I10 - Essential hypertension Elodia Watts MD January 20, 2017 10:44
[2017-01-20] MEDS: hydrALAZINE HCL 10 MG TAB PO PRN (12:28)
[2017-01-20] MEDS: hydrALAZINE HCL 25 MG TAB PO SCH ×2 (15:21→21:01)
[2017-01-21] VITALS (10 sets, daily range): BP systolic 150–180; BP diastolic 77–102; PULSE 76–92; RESP 16–19; TEMP 96.8–99.1; O2SAT 95–99
[2017-01-21] MEDS: cloNIDine HCL 0.1 MG TAB PO PRN (03:41)
[2017-01-21] MEDS: CHLORHEXIDINE GLUCONATE 2 % 1 PACK (2 CLOTHS) TOP SCH (03:41)
[2017-01-21] MEDS: HEPARIN SODIUM - SQ 10,000 UNITS/ML VIAL SQ SCH ×3 (06:23→21:53)
[2017-01-21] MEDS: hydrALAZINE HCL 25 MG TAB PO SCH ×3 (06:23→21:53)
[2017-01-21] MEDS: INSULIN NovoLIN REGULAR SUPPLEMENTAL SCALE SQ SCH ×4 (06:28→21:00)
[2017-01-21] MEDS ORDERED: SODIUM CHLORID 0.9% 500 ML INJ 500 ML IV SCH (08:45)
[2017-01-21] MEDS: POLYETHYLENE GLYCOL 17 GM PKG PO SCH (09:00)
--- NOTE | 2017-01-21 09:07 | HHI.PR ---
Subjective Remarks Pt feeling well, eating breakfast, tells me it is really good. denies any pain at this time, denies any CP/SOB/N/V Objective Vitals Vital Signs Date Time Temp Pulse Resp B/P Pulse Ox O2 Delivery O2 Flow Rate FiO2 01/21/17 08:00 97.0 90 18 163/91 96 01/21/17 04:00 98.2 88 19 180/102 97 01/21/17 02:00 99.0 86 17 170/101 99 01/20/17 22:02 Nasal Cannula 2.00 01/20/17 20:15 96 01/20/17 20:00 99.1 95 17 174/98 98 01/20/17 15:50 99.2 89 20 174/93 98 01/20/17 11:50 98.5 73 20 173/105 97 Automatic Cuff I/O 01/20/17 01/20/17 01/20/17 01/21/17 01/21/17 01/21/17 07:00 15:00 23:00 07:00 15:00 23:00 Intake Total 240 ml 240 ml 480 ml Output Total 550 ml 600 ml 800 ml Balance -310 ml -360 ml -320 ml Intake Oral 240 ml 240 ml 480 ml Output Urine Total 550 ml 600 ml 800 ml # Bowel Movements 1 0 1 Result Diagram: 01/20/17 0445 01/20/17 0445 Imaging Last Impressions Abdomen MRI 01/18/17 0000 Signed Impressions: Service Date/Time: Wednesday, January 18, 2017 10:36 - CONCLUSION: Evolving changes in the adrenal glands with evidence of increasing edema and restricted diffusion. These changes are relate to bilateral adrenal hemorrhage previously described. Significant potential for adrenal insufficiency should be considered. Distended gallbladder. No significant interval change. Matthew Aguirre MD Small Bowel X-Ray 01/16/17 0000 Signed Impressions: Service Date/Time: Monday, January 16, 2017 15:58 - CONCLUSION: Unremarkable small bowel examination. Dk Benedict MD IVC Filter Placement X-Ray 01/16/17 0000 Signed Impressions: Service Date/Time: Monday, January 16, 2017 10:36 - CONCLUSION: Uncomplicated inferior vena cava filter placement as above. Matthew Aguirre MD Chest X-Ray 01/15/17 Signed Impressions: Service Date/Time: Sunday, January 15, 2017 14:51 - CONCLUSION: Decreasing densities in the right lung. Dk Benedict MD Lower Extremity Ultrasound 01/12/17 Signed Impressions: Service Date/Time: Thursday, January 12, 2017 12:08 - CONCLUSION: 1. Deep venous thrombosis which is nonocclusive in the superficial femoral and popliteal veins. 2. Superficial venous thrombosis in the greatest saphenous vein. Tyler Nagy MD Abdomen/Pelvis CT 01/11/17 Signed Impressions: Service Date/Time: Wednesday, January 11, 2017 20:00 - CONCLUSION: 1. Subacute hemorrhage of both adrenal glands, not significantly changed on the left, smaller on the right. 2. Increased/new pleural fluid at both bases, new, small ascites, new body wall edema/anasarca. 3. No evidence of bowel obstruction. Nasogastric tube coiled in the stomach. 4. Patchy airspace consolidation of the right lung base, new. Santos Arce MD Head Magnetic Resonance Angiography 01/05/17 Signed Impressions: Service Date/Time: Thursday, January 05, 2017 14:37 - CONCLUSION: Normal examination. Esperanza Odell MD Head CT 01/04/17 0848 Signed Impressions: Service Date/Time: Wednesday, January 04, 2017 08:58 - CONCLUSION: Unremarkable examination for each. Tyler Nagy MD Neck CT 01/04/17 Signed Impressions: Service Date/Time: Wednesday, January 04, 2017 20:49 - CONCLUSION: Questionable thickening of the vocal cords. These can be directly inspected. Otherwise the study appears grossly normal for a noncontrast CT of the neck. Santos Whitley MD Chest CT 01/04/17 Signed Impressions: Service Date/Time: Wednesday, January 04, 2017 20:50 - CONCLUSION: 1. Mild bilateral pleural effusions with suspected accompanying areas of atelectasis or consolidation at the lung bases. 2. Coronary artery calcifications. Santos Whitley MD Brain MRI 01/04/17 Signed Impressions: Service Date/Time: Wednesday, January 04, 2017 21:19 - CONCLUSION: Atrophy and mild chronic white matter changes. No acute infarct or other acute intracranial abnormality. Santos Arce MD Objective Remarks GENERAL: 76-year-old male, now on NC. CARDIOVASCULAR: RRR w no murmurs RESPIRATORY: On NC. Clear to auscultation bilaterally. GASTROINTESTINAL: Abdomen remains distended. No guarding. Nontender. Active bowel sounds. MUSCULOSKELETAL: Bilateral lower extremity edema. R>L NEUROLOGICAL: alert and oriented, follows commands, eating breakfast Date of Insertion: Jan 04, 2017 Date of Insertion: Jan 04, 2017 Side: Left Location: Subclavian A/P Problem List: (1) Thrombocytosis ICD Code: D47.3 Status: Acute (2) Depression ICD Code: F32.9 Status: Acute (3) Anticoagulant long-term use ICD Code: Z79.01 Status: Acute (4) Leg wound, right ICD Code: S81.801A Status: Acute (5) Hypo-osmolality and hyponatremia ICD Code: E87.1 Status: Acute (6) Hyperglycemia ICD Code: R73.9 Status: Acute (7) Hypertension ICD Code: I10 Status: Acute (8) Abdominal pain ICD Code: R10.9 Status: Acute (9) DVT (deep venous thrombosis) ICD Code: I82.409 Status: Acute (10) Leukocytosis ICD Code: D72.829 Status: Acute (11) Distended abdomen ICD Code: R14.0 Status: Acute Assessment and Plan Acute toxic metabolic encephalopathy-resolving History of EtOH Depression/anxiety off sedation. CT head 01/04 reveals no acute intracranial abnormalities on bupropion 150 mg by mouth daily, Hold Ultram and Percocet as he has no complaints of pain at this time. po Thiamine/folate/multivitamin daily with EtOH use. MRI/A brain 01/05- normal exam Right lower extremity DVT Fluid overload Hypertension As needed hydralazine/labetalol/Nitropaste to maintain systolic blood pressure was 160 increased Lopressor 100 mg BID- on hydralazine scheduled 25mg po q8hrs 01/05 right lower extremity Dopplers ultrasound for DVT-partially occlusive thrombus right SFA, popliteal and peroneal veins Status post IVC filter placement on 01/16 Hematology following pt and recommends against full dose anticoagulation but is agreeable to prophylactic dosage Acute hypoxic respiratory failure requiring intubation Extubated 01/15/17 Required intubation 01/05 for labored breathing due to bronchospasm. Extubated 01/13 but had to be reintubated Ileus CT abd/pelvis 01/04 revealed right 3.6 x 2.4 cm and left 2.5 x 1.4 cm adrenal masses. Distal esophagus with thickening. Dilated stomach. Colonic Diverticuli. Compressed colon. Possible bowel obstruction. Dr. Saleh/general surgery consulted-medical management at this time. Small bowel follow-through done on 01/16 was unremarkable. MRI suggested bilateral adrenal hemorrhage - hypercoagulable workup in progress and being followed by hematology. Negative ultrasound gallbladder 01/02 clinically tolerating diet thus far. Acute kidney injury Proteinuria IMPROVING Patient states he needed kidney biopsy in past but refused Accurate I's and O's Monitor urine output ADH elevated, ACTH normal range encouraged po hydration, I will add some gently IV hydration NS @50ml/hr for a total of 500ml and monitor. B/L adrenal hemorrhage See CT abdomen/pelvis Follow-up on adrenal insufficiency workup. Positive antiphospholipid use Silvadene antibody, heterozygous state for MTHFR gene mutation, abnormal lupus anticoagulant test ADH elevated, ACTH normal range Noted hypertensive. Potassium low normal. BMP ordered continue weaning hydrocortisone, currently on 25mg IV BID. Transition to po prednisone 40mg po daily starting tomorrow. caution and consider renal insufficiency. Sliding-scale insulin with Accu-Cheks to maintain euglycemia/low regimen MRI Evolving changes in the adrenal glands with evidence of increasing edema and restricted diffusion. These changes are relate to bilateral adrenal hemorrhage previously described. Leukocytosis Thrombocytosis Chronic Xarelto use Left lower extremity DVT Unable to anticoagulate for LE DVT due to adrenal hemorrhage s/p IR for IVC filter placement today 01/16/17 MTFHR gene mutation positive, phosphatidylserine antibody titer elevated, lupus anticoagulant test abnormal. Hematology to decide regarding resuming heparin for full anticoagulation. Doubt infectious etiology. ID Dr. Salinas reviewed chart and no abx, she has signed off UA negative. Procalcitonin normal 01/04 - blood cultures 2 - negative 01/04 - UA - negative 01/02 - blood cultures 2 - negative Hyponatremia - hypoosmolar- now hypernatremic, resolved Na 139 01/20/1701/04 Cortisol level equivocal TSH was 1.12. Uric acid 3.0. f/u Lipid panel 2% NaCl infusion-discontinued Right lower extremity wound being managed by wound care. Psychiatry evaluated the patient and he does not have capacity to make appropriate decisions, recommendations are for possible placement in a shelter facility. PT also following pt and recommend PT at rehab Prophylaxis - GI - Protonix - DVT - SCD/holding Xarelto in light adrenal hemorrhage. IVC filter 01/16/17. on subcutaneous heparin 5000 units every 8 hourly and toleration it well thus far. Discharge Planning continue to wean pt off IV solucortef. monitor BP and adjust BP meds. Psychiatry evaluated the patient and he does not have capacity to make appropriate decisions, recommendations are for possible placement in a shelter facility. PT also following pt and recommend PT at rehab Problem Qualifiers (1) Depression: (2) Leg wound, right: Qualified Code: S81.801D - Leg wound, right, subsequent encounter (3) Hypertension: Qualified Code: I10 - Essential hypertension Elodia Watts MD January 21, 2017 09:07
[2017-01-21] MEDS: MULTIVITAMIN TAB PO SCH (10:40)
[2017-01-21] MEDS: buPROPion HCL 150 MG EXTENDED RELEASE TAB PO SCH (10:40)
[2017-01-21] MEDS: THIAMINE HCL 100 MG TAB PO SCH (10:41)
[2017-01-21] MEDS: DOCUSATE SODIUM 100 MG CAP PO SCH ×2 (10:41→20:26)
[2017-01-21] MEDS: METOPROLOL TARTRATE 25 MG TAB PO SCH ×2 (10:41→20:26)
[2017-01-21] MEDS: FOLIC ACID 1 MG TAB PO SCH (10:41)
[2017-01-21 10:52] LABS: BICARBONATE 29.3 MEQ/L (21.0-32.0); POTASSIUM 3.1 MEQ/L (3.5-5.1)
[2017-01-21] MEDS: PANTOPRAZOLE SODIUM 40 MG VIAL IV SCH (14:43)
[2017-01-21] MEDS: ARTIFICIAL TEARS OPTH SOLN 15 ML BTL EACH EYE SCH ×2 (14:43→18:00)
[2017-01-21] MEDS: SODIUM CHLORIDE 0.9% FLUSH 10 ML FLUSH IV FLUSH SCH ×2 (14:44→20:27)
[2017-01-21] MEDS: HYDROCORTISONE SOD SUCCINATE 100 MG VIAL IV PUSH SCH ×2 (14:45→20:26)
[2017-01-21] MEDS: CHLORHEXIDINE 0.12% (ORAL KIT) 15 ML CUP MT SCH (20:00)
--- NOTE | 2017-01-21 21:59 | PD.ONC.PN ---
Subjective Subjective Remarks comfortable no bleeding no dyspnea/no leg pain Hb stable Objective Data Date Time Temp Pulse Resp B/P Pulse Ox O2 Delivery O2 Flow Rate FiO2 01/21/17 20:41 96 Nasal Cannula 2.00 01/21/17 20:00 97.9 86 18 150/77 99 01/21/17 16:00 98.9 78 18 168/98 97 01/21/17 12:00 96.8 92 16 154/88 95 01/21/17 10:00 Room Air 01/21/17 10:00 76 01/21/17 08:02 95 Nasal Cannula 2.00 01/21/17 08:00 97.0 90 18 163/91 96 01/21/17 04:00 98.2 88 19 180/102 97 01/21/17 02:00 99.0 86 17 170/101 99 01/20/17 22:02 Nasal Cannula 2.00 01/21/17 01/21/17 01/21/17 07:00 15:00 23:00 Intake Total 480 ml 720 ml Output Total 800 ml 900 ml 900 ml Balance -320 ml -180 ml -900 ml Result Diagram: 01/20/17 0445 01/21/17 0956 Laboratory Results Laboratory Tests Test 01/21/17 09:56 Sodium Level 140 MEQ/L Potassium Level 3.1 MEQ/L Chloride Level 103 MEQ/L Carbon Dioxide Level 29.3 MEQ/L Anion Gap 8 MEQ/L Blood Urea Nitrogen 44 MG/DL Creatinine 1.49 MG/DL Estimat Glomerular Filtration 46 ML/MIN Rate Random Glucose 100 MG/DL Calcium Level 8.4 MG/DL Administered Medications Medications (Trade) Dose Ordered Sig/Jose Route PRN Reason Start Time Stop Time Status Last Admin Dose Admin Sodium Chloride (NS Flush) 2 ml BID IV FLUSH 01/04/17 21:00 01/21/17 20:27 Pantoprazole Sodium (Protonix Inj) 40 mg DAILY IV 01/05/17 09:00 01/21/17 14:43 Artificial Tears (Tears Naturale Opth Soln) 1 drop TID EACH EYE 01/04/17 18:00 01/21/17 14:43 Docusate Sodium (Colace) 100 mg BID PO 01/04/17 21:00 01/21/17 20:26 Chlorhexidine Gluconate (Chlorhexidine 2% Cloth) Taper DAILY@04 TOP 01/05/17 04:00 01/01/18 03:59 01/20/17 04:00 Folic Acid (Folate) 1 mg DAILY PO 01/05/17 09:00 01/21/17 10:41 Multivitamins (Theragran) 1 tab DAILY PO 01/05/17 09:00 01/21/17 10:40 Labetalol HCl (Trandate Inj) 10 mg Q1HR PRN IV PUSH SBP>160, DBP>90, HR>65 01/04/17 15:30 01/16/17 07:22 Nitroglycerin (Nitroglycerin 2% Oint) 2 inch Q6HR PRN TOPICAL SBP>160, DBP>90 01/04/17 15:30 01/04/17 18:17 Chlorhexidine Gluconate (Peridex 0.12% Liq) 15 ml BID@08,20 MT 01/05/17 08:00 01/15/17 08:00 Polyethylene Glycol (Miralax) 17 gm DAILY PO 01/17/17 09:00 01/20/17 08:41 Heparin Sodium (Porcine) (Heparin Inj) 5,000 units Q8HR SQ 01/17/17 10:00 01/21/17 14:42 Amlodipine Besylate (Norvasc) 10 mg DAILY PO 01/17/17 16:30 01/21/17 10:41 Clonidine (Catapres) 0.1 mg Q8HR PRN PO SBP>180 0r DBP>100 01/17/17 16:30 01/21/17 03:41 Hydralazine HCl (Apresoline) 10 mg Q6HR PRN PO SBP>160, DBP>90 01/19/17 08:45 01/20/17 12:28 Bupropion HCl (Wellbutrin Xl 24 Hr) 150 mg DAILY PO 01/20/17 09:00 01/21/17 10:40 Thiamine HCl (Vitamin B1) 100 mg DAILY PO 01/20/17 09:00 01/21/17 10:41 Hydralazine HCl (Apresoline) 25 mg Q8HR PO 01/20/17 14:00 01/21/17 14:45 Hydrocortisone Sodium Succinate (SoluCORTEF INJ) 25 mg Q12HR IV PUSH 01/20/17 21:00 5/14/18 23:00 01/21/17 20:26 Metoprolol Tartrate (Lopressor) 100 mg Q12HR PO 01/21/17 09:00 01/21/17 20:26 Objective Remarks GENERAL: nad SKIN: Warm and dry. CARDIOVASCULAR: Regular rate and rhythm without murmurs. RESPIRATORY: Breath sounds equal bilaterally. No accessory muscle use. GASTROINTESTINAL: Abdomen soft, non-tender, nondistended. EXTREMITIES: No cyanosis, or edema. Assessment/Plan Problem List: (1) DVT (deep venous thrombosis) Status: Acute Plan: -- Pt not a candidate for anticoagulation due to subacute hemorrhages of the adrenal gland. -- s/p IVC filter placement on 01/16/17 Assessment 76 y/o male admitted for AMS who went into respiratory failure; Hematology consulted for RLE DVT with bilateral adrenal hemorrhages. Plan 1. s/p IVC filter placement. 2. Hb stable. On heparin prophylactic dose. 3. MRI shows persistent adrenal edema /? hemorrhage 4. Hold off on full anti-coagulation 5.check cbc in am Difficult situation in this patient with b/l adrenal hemorrhage and DVT with positive lupus anti-coagulant. Due to high risk of adrenal bleeding, therapeutic dose anti-coagulation is contra-indicated. Has IVC filter in place. continue prophy heparin for now. Anatoliy Arauz MD January 21, 2017 21:59
[2017-01-22] VITALS (10 sets, daily range): BP systolic 142–166; BP diastolic 85–90; PULSE 75–88; RESP 17–20; TEMP 96.3–97.8; O2SAT 95–98
[2017-01-22] MEDS: CHLORHEXIDINE GLUCONATE 2 % 1 PACK (2 CLOTHS) TOP SCH (03:43)
[2017-01-22] MEDS: HEPARIN SODIUM - SQ 10,000 UNITS/ML VIAL SQ SCH ×3 (05:54→21:20)
[2017-01-22] MEDS: hydrALAZINE HCL 25 MG TAB PO SCH (05:54)
[2017-01-22 05:59] LABS: AUTOMATED NEUTROPHIL # 12.9 TH/MM3 (1.8-7.7); BASOPHIL # 0.1 TH/MM3 (0-0.2); BASOPHIL % 0.5 % (0.0-2.0); EOSINOPHIL # 0.2 TH/MM3 (0-0.4); EOSINOPHIL % 1.5 % (0.0-4.0); HEMATOCRIT 26.9 % (39.0-51.0); HEMO FLAGS DIFF FINAL; LYMPH % 7.7 % (9.0-44.0); LYMPHOCYTE # 1.2 TH/MM3 (1.0-4.8); MEAN CORPUSCULAR HEMOGLOBIN 30.4 PG (27.0-34.0); MEAN CORPUSCULAR HGB CONC 34.5 % (32.0-36.0); NEUT % 84.3 % (16.0-70.0); PLATELET COUNT 292 TH/MM3 (150-450); RED BLOOD COUNT 3.05 MIL/MM3 (4.50-5.90); RED CELL DISTRIBUTION WIDTH 15.6 % (11.6-17.2); WHITE BLOOD COUNT 15.3 TH/MM3 (4.0-11.0)
[2017-01-22] MEDS: INSULIN NovoLIN REGULAR SUPPLEMENTAL SCALE SQ SCH ×4 (06:03→21:30)
[2017-01-22 06:13] LABS: BICARBONATE 30.2 MEQ/L (21.0-32.0); POTASSIUM 3.5 MEQ/L (3.5-5.1)
[2017-01-22] MEDS: MULTIVITAMIN TAB PO SCH (07:51)
[2017-01-22] MEDS: POLYETHYLENE GLYCOL 17 GM PKG PO SCH (07:51)
[2017-01-22] MEDS: buPROPion HCL 150 MG EXTENDED RELEASE TAB PO SCH (07:51)
[2017-01-22] MEDS: METOPROLOL TARTRATE 25 MG TAB PO SCH ×2 (07:51→21:29)
[2017-01-22] MEDS: FOLIC ACID 1 MG TAB PO SCH (07:52)
[2017-01-22] MEDS: predniSONE 20 MG TAB PO SCH (07:52)
[2017-01-22] MEDS: DOCUSATE SODIUM 100 MG CAP PO SCH ×2 (07:52→21:20)
[2017-01-22] MEDS: THIAMINE HCL 100 MG TAB PO SCH (07:53)
[2017-01-22] MEDS: PANTOPRAZOLE SODIUM 40 MG VIAL IV SCH (07:54)
[2017-01-22] MEDS: ARTIFICIAL TEARS OPTH SOLN 15 ML BTL EACH EYE SCH ×3 (07:54→17:37)
[2017-01-22] MEDS: HYDROCORTISONE SOD SUCCINATE 100 MG VIAL IV PUSH SCH ×2 (07:54→21:20)
[2017-01-22] MEDS: SODIUM CHLORIDE 0.9% FLUSH 10 ML FLUSH IV FLUSH SCH ×2 (07:54→21:19)
[2017-01-22] MEDS ORDERED: SODIUM CHLORID 0.9% 500 ML INJ 500 ML IV SCH (10:15)
--- NOTE | 2017-01-22 10:23 | HHI.PR ---
Subjective Remarks Pt feels ok, denies any CP/SOB/N/V states that he has friends down [facility] and he would like to go to a SNF there if possible. He is able to answer most of my questions. Discussed w RN, pt at times gets confused. Discussed w CM, apparently pt agreed to go to rehab here then would go down to [facility]. CM will reach out to family later today Objective Vitals Vital Signs Date Time Temp Pulse Resp B/P Pulse Ox O2 Delivery O2 Flow Rate FiO2 01/22/17 08:00 97.8 83 18 161/85 97 01/22/17 04:00 97.1 76 17 153/90 96 01/22/17 00:00 97.7 79 17 154/87 98 01/21/17 21:54 99.1 83 18 153/91 01/21/17 20:41 96 Nasal Cannula 2.00 01/21/17 20:00 97.9 86 18 150/77 99 01/21/17 20:00 85 01/21/17 20:00 99 Nasal Cannula 2.00 01/21/17 16:00 98.9 78 18 168/98 97 01/21/17 12:00 96.8 92 16 154/88 95 I/O 01/21/17 01/21/17 01/21/17 01/22/17 01/22/17 01/22/17 07:00 15:00 23:00 07:00 15:00 23:00 Intake Total 480 ml 720 ml Output Total 800 ml 900 ml 900 ml 1050 ml 400 ml Balance -320 ml -180 ml -900 ml -1050 ml -400 ml Intake Oral 480 ml 720 ml Output Urine Total 800 ml 900 ml 900 ml 1050 ml 400 ml # Bowel Movements 1 1 Result Diagram: 01/22/17 0520 01/22/17 0520 Imaging Last Impressions Abdomen MRI 01/18/17 0000 Signed Impressions: Service Date/Time: Wednesday, January 18, 2017 10:36 - CONCLUSION: Evolving changes in the adrenal glands with evidence of increasing edema and restricted diffusion. These changes are relate to bilateral adrenal hemorrhage previously described. Significant potential for adrenal insufficiency should be considered. Distended gallbladder. No significant interval change. Matthew Aguirre MD Small Bowel X-Ray 01/16/17 0000 Signed Impressions: Service Date/Time: Monday, January 16, 2017 15:58 - CONCLUSION: Unremarkable small bowel examination. Dk Benedict MD IVC Filter Placement X-Ray 01/16/17 Signed Impressions: Service Date/Time: Monday, January 16, 2017 10:36 - CONCLUSION: Uncomplicated inferior vena cava filter placement as above. Matthew Aguirre MD Chest X-Ray 01/15/17 Signed Impressions: Service Date/Time: Sunday, January 15, 2017 14:51 - CONCLUSION: Decreasing densities in the right lung. Dk Benedict MD Lower Extremity Ultrasound 01/12/17 Signed Impressions: Service Date/Time: Thursday, January 12, 2017 12:08 - CONCLUSION: 1. Deep venous thrombosis which is nonocclusive in the superficial femoral and popliteal veins. 2. Superficial venous thrombosis in the greatest saphenous vein. Tyler Nagy MD Abdomen/Pelvis CT 01/11/17 Signed Impressions: Service Date/Time: Wednesday, January 11, 2017 20:00 - CONCLUSION: 1. Subacute hemorrhage of both adrenal glands, not significantly changed on the left, smaller on the right. 2. Increased/new pleural fluid at both bases, new, small ascites, new body wall edema/anasarca. 3. No evidence of bowel obstruction. Nasogastric tube coiled in the stomach. 4. Patchy airspace consolidation of the right lung base, new. Santos Arce MD Head Magnetic Resonance Angiography 01/05/17 Signed Impressions: Service Date/Time: Thursday, January 05, 2017 14:37 - CONCLUSION: Normal examination. KMalena Odell MD Head CT 01/04/17 0848 Signed Impressions: Service Date/Time: Wednesday, January 04, 2017 08:58 - CONCLUSION: Unremarkable examination for each. Tyler Nagy MD Neck CT 01/04/17 Signed Impressions: Service Date/Time: Wednesday, January 04, 2017 20:49 - CONCLUSION: Questionable thickening of the vocal cords. These can be directly inspected. Otherwise the study appears grossly normal for a noncontrast CT of the neck. Santos Whitley MD Chest CT 01/04/17 Signed Impressions: Service Date/Time: Wednesday, January 04, 2017 20:50 - CONCLUSION: 1. Mild bilateral pleural effusions with suspected accompanying areas of atelectasis or consolidation at the lung bases. 2. Coronary artery calcifications. Santos Whitley MD Brain MRI 01/04/17 0000 Signed Impressions: Service Date/Time: Wednesday, January 04, 2017 21:19 - CONCLUSION: Atrophy and mild chronic white matter changes. No acute infarct or other acute intracranial abnormality. Santos Arce MD Objective Remarks GENERAL: 76-year-old male, now on NC. CARDIOVASCULAR: RRR w no murmurs RESPIRATORY: On NC. Clear to auscultation bilaterally. GASTROINTESTINAL: Abdomen remains distended. No guarding. Nontender. Active bowel sounds. MUSCULOSKELETAL: Bilateral lower extremity edema. R>L NEUROLOGICAL: alert and oriented, follows commands, eating breakfast Date of Insertion: Jan 04, 2017 Date of Insertion: Jan 04, 2017 Side: Left Location: Subclavian A/P Problem List: (1) Thrombocytosis ICD Code: D47.3 Status: Acute (2) Depression ICD Code: F32.9 Status: Acute (3) Anticoagulant long-term use ICD Code: Z79.01 Status: Acute (4) Leg wound, right ICD Code: S81.801A Status: Acute (5) Hypo-osmolality and hyponatremia ICD Code: E87.1 Status: Acute (6) Hyperglycemia ICD Code: R73.9 Status: Acute (7) Hypertension ICD Code: I10 Status: Acute (8) Abdominal pain ICD Code: R10.9 Status: Acute (9) DVT (deep venous thrombosis) ICD Code: I82.409 Status: Acute (10) Leukocytosis ICD Code: D72.829 Status: Acute (11) Distended abdomen ICD Code: R14.0 Status: Acute Assessment and Plan Acute toxic metabolic encephalopathy-resolving History of EtOH Depression/anxiety CT head 01/04 reveals no acute intracranial abnormalities on bupropion 150 mg by mouth daily, continue to hold narcotics. po Thiamine/folate/multivitamin daily with EtOH use. MRI/A brain 01/05- normal exam Right lower extremity DVT Fluid overload Hypertension BPs still elevated. Lopressor 100 mg BID- increase hydralazine scheduled 50 mg po q8hrs 01/05 right lower extremity Dopplers ultrasound for DVT-partially occlusive thrombus right SFA, popliteal and peroneal veins Status post IVC filter placement on 01/16 Hematology following. Pt has b/l adrenal hemorrhage and DVT with positive lupus anti-coagulant. However due to high risk of adrenal bleeding, therapeutic dose anti-coagulation is contra-indicated. Has IVC filter in place. hematology agreeable to prophylactic heparin Acute hypoxic respiratory failure requiring intubation Extubated 01/15/17 Required intubation 01/05 for labored breathing due to bronchospasm. Extubated 01/13 but had to be reintubated Ileus CT abd/pelvis 01/04 revealed right 3.6 x 2.4 cm and left 2.5 x 1.4 cm adrenal masses. Distal esophagus with thickening. Dilated stomach. Colonic Diverticuli. Compressed colon. Possible bowel obstruction. Dr. Saleh/general surgery consulted-medical management at this time. Small bowel follow-through done on 01/16 was unremarkable. MRI suggested bilateral adrenal hemorrhage - hypercoagulable workup in progress and being followed by hematology. Negative ultrasound gallbladder 01/02 clinically tolerating diet thus far Acute kidney injury Proteinuria IMPROVING Patient states he needed kidney biopsy in past but refused Accurate I's and O's Monitor urine output ADH elevated, ACTH normal range encouraged po hydration, I will add some gently IV hydration NS @50ml/hr for another 500ml total today and monitor. Cr 1.45 today. B/L adrenal hemorrhage See CT abdomen/pelvis Follow-up on adrenal insufficiency workup. ADH elevated, ACTH normal range off solucortef. on po prednisone 40mg po daily and continue to wean. caution and consider renal insufficiency. Sliding-scale insulin with Accu-Cheks to maintain euglycemia/low regimen MRI Evolving changes in the adrenal glands with evidence of increasing edema and restricted diffusion. These changes are relate to bilateral adrenal hemorrhage previously described. Leukocytosis Thrombocytosis Chronic Xarelto use Left lower extremity DVT Unable to anticoagulate for LE DVT due to adrenal hemorrhage s/p IR for IVC filter placement today 01/16/17 MTFHR gene mutation positive, phosphatidylserine antibody titer elevated, lupus anticoagulant test abnormal. Hematology to decide regarding resuming heparin for full anticoagulation. Doubt infectious etiology. ID Dr. Salinas reviewed chart and no abx, she has signed off UA negative. Procalcitonin normal 01/04 - blood cultures 2 - negative 01/04 - UA - negative 01/02 - blood cultures 2 - negative Hyponatremia - hypoosmolar- now hypernatremic, resolved Na 139 01/20/1701/04 Cortisol level equivocal TSH was 1.12. Uric acid 3.0. f/u Lipid panel 2% NaCl infusion-discontinued Right lower extremity wound being managed by wound care. Psychiatry evaluated the patient and he does not have capacity to make appropriate decisions, recommendations are for [facility]. Pt seems to be more aware of his surrounding today, would like for psych to re-evaluate for capacity. I did discuss w CM and I have asked them to please reach out to family for assistance w d/c planning. [place] but apparently yesterday he was agreeable to go to a rehab here then go down to [facility]. PT also following pt and recommends PT at rehab - DVT proph - SCD/holding Xarelto in light adrenal hemorrhage. IVC filter . on subcutaneous heparin 5000 units every 8 hourly and toleration it well thus far. Discharge Planning continue to wean steroids monitor BP and adjust BP meds. monitor Cr. function anticipate d/c to SNF once we can reach out to family and when psych re- evaluates pt as for now pt was deemed not capacitated to make decisions by psychiatry. Problem Qualifiers (1) Depression: (2) Leg wound, right: Qualified Code: S81.801D - Leg wound, right, subsequent encounter (3) Hypertension: Qualified Code: I10 - Essential hypertension Elodia Watts MD January 22, 2017 10:23
[2017-01-22] MEDS: hydrALAZINE HCL 50 MG TAB PO SCH ×2 (12:27→21:20)
--- NOTE | 2017-01-22 19:07 | PD.ONC.PN ---
Subjective Subjective Remarks comfortable. no complaints f/u for DVT and adrenal hemorrhage Objective Data Date Time Temp Pulse Resp B/P Pulse Ox O2 Delivery O2 Flow Rate FiO2 01/22/17 16:29 Nasal Cannula 2.00 01/22/17 16:00 97.8 87 18 153/90 98 01/22/17 12:00 97.1 83 20 166/88 96 01/22/17 10:47 75 01/22/17 09:15 97 Nasal Cannula 2.00 01/22/17 08:00 97.8 83 18 161/85 97 01/22/17 04:00 97.1 76 17 153/90 96 01/22/17 00:00 97.7 79 17 154/87 98 01/21/17 21:54 99.1 83 18 153/91 01/21/17 20:41 96 Nasal Cannula 2.00 01/21/17 20:00 97.9 86 18 150/77 99 01/21/17 20:00 85 01/21/17 20:00 99 Nasal Cannula 2.00 01/22/17 01/22/17 01/22/17 07:00 15:00 23:00 Intake Total 1080 ml Output Total 1050 ml 400 ml 450 ml Balance -1050 ml 680 ml -450 ml Result Diagram: 01/22/17 0520 01/22/17 0520 Laboratory Results Laboratory Tests Test 01/22/17 05:20 White Blood Count 15.3 TH/MM3 Red Blood Count 3.05 MIL/MM3 Hemoglobin 9.3 GM/DL Hematocrit 26.9 % Mean Corpuscular Volume 88.0 FL Mean Corpuscular Hemoglobin 30.4 PG Mean Corpuscular Hemoglobin 34.5 % Concent Red Cell Distribution Width 15.6 % Platelet Count 292 TH/MM3 Mean Platelet Volume 8.8 FL Neutrophils (%) (Auto) 84.3 % Lymphocytes (%) (Auto) 7.7 % Monocytes (%) (Auto) 6.0 % Eosinophils (%) (Auto) 1.5 % Basophils (%) (Auto) 0.5 % Neutrophils # (Auto) 12.9 TH/MM3 Lymphocytes # (Auto) 1.2 TH/MM3 Monocytes # (Auto) 0.9 TH/MM3 Eosinophils # (Auto) 0.2 TH/MM3 Basophils # (Auto) 0.1 TH/MM3 CBC Comment DIFF FINAL Differential Comment Sodium Level 139 MEQ/L Potassium Level 3.5 MEQ/L Chloride Level 101 MEQ/L Carbon Dioxide Level 30.2 MEQ/L Anion Gap 8 MEQ/L Blood Urea Nitrogen 37 MG/DL Creatinine 1.45 MG/DL Estimat Glomerular Filtration 47 ML/MIN Rate Random Glucose 98 MG/DL Calcium Level 8.3 MG/DL Administered Medications Medications (Trade) Dose Ordered Sig/Jose Route PRN Reason Start Time Stop Time Status Last Admin Dose Admin Sodium Chloride (NS Flush) 2 ml BID IV FLUSH 01/04/17 21:00 01/21/17 20:27 Pantoprazole Sodium (Protonix Inj) 40 mg DAILY IV 01/05/17 09:00 01/22/17 07:54 Artificial Tears (Tears Naturale Opth Soln) 1 drop TID EACH EYE 01/04/17 18:00 01/22/17 17:37 Docusate Sodium (Colace) 100 mg BID PO 01/04/17 21:00 01/22/17 07:52 Chlorhexidine Gluconate (Chlorhexidine 2% Cloth) Taper DAILY@04 TOP 01/05/17 04:00 01/01/18 03:59 01/20/17 04:00 Folic Acid (Folate) 1 mg DAILY PO 01/05/17 09:00 01/22/17 07:52 Multivitamins (Theragran) 1 tab DAILY PO 01/05/17 09:00 01/22/17 07:51 Labetalol HCl (Trandate Inj) 10 mg Q1HR PRN IV PUSH SBP>160, DBP>90, HR>65 01/04/17 15:30 01/16/17 07:22 Nitroglycerin (Nitroglycerin 2% Oint) 2 inch Q6HR PRN TOPICAL SBP>160, DBP>90 01/04/17 15:30 01/04/17 18:17 Chlorhexidine Gluconate (Peridex 0.12% Liq) 15 ml BID@08,20 MT 01/05/17 08:00 01/15/17 08:00 Polyethylene Glycol (Miralax) 17 gm DAILY PO 01/17/17 09:00 01/22/17 07:51 Heparin Sodium (Porcine) (Heparin Inj) 5,000 units Q8HR SQ 01/17/17 10:00 01/22/17 12:27 Amlodipine Besylate (Norvasc) 10 mg DAILY PO 01/17/17 16:30 01/22/17 07:52 Clonidine (Catapres) 0.1 mg Q8HR PRN PO SBP>180 0r DBP>100 01/17/17 16:30 01/21/17 03:41 Hydralazine HCl (Apresoline) 10 mg Q6HR PRN PO SBP>160, DBP>90 01/19/17 08:45 01/20/17 12:28 Bupropion HCl (Wellbutrin Xl 24 Hr) 150 mg DAILY PO 01/20/17 09:00 01/22/17 07:51 Thiamine HCl (Vitamin B1) 100 mg DAILY PO 01/20/17 09:00 01/22/17 07:53 Hydrocortisone Sodium Succinate (SoluCORTEF INJ) 25 mg Q12HR IV PUSH 01/20/17 21:00 01/20/18 23:00 01/22/17 07:54 Metoprolol Tartrate (Lopressor) 100 mg Q12HR PO 01/21/17 09:00 01/22/17 07:51 Prednisone (Deltasone) 40 mg DAILY PO 01/22/17 09:00 01/22/17 07:52 Hydralazine HCl 50 mg 50 mg Q8HR PO 01/22/17 14:00 01/22/17 12:27 Sodium Chloride (NS 500 ml Inj) 500 ml @ 50 mls/hr Q10H IV 01/22/17 10:15 01/22/17 20:14 01/22/17 12:32 Objective Remarks GENERAL: nad SKIN: Warm and dry. NECK: Supple, trachea midline. No JVD or lymphadenopathy. LYMPHATIC: No adenopathy. CARDIOVASCULAR: Regular rate and rhythm without murmurs. RESPIRATORY: Breath sounds equal bilaterally. No accessory muscle use. GASTROINTESTINAL: Abdomen soft, non-tender, nondistended. EXTREMITIES: No cyanosis, or edema. Assessment/Plan Problem List: (1) DVT (deep venous thrombosis) Status: Acute Plan: -- Pt not a candidate for anticoagulation due to subacute hemorrhages of the adrenal gland. -- s/p IVC filter placement on 01/16/17 Assessment 76 y/o male admitted for AMS who went into respiratory failure; Hematology consulted for RLE DVT with bilateral adrenal hemorrhages. Plan 1. s/p IVC filter placement. 2. Hb stable. On heparin prophylactic dose. 3. MRI shows persistent adrenal edema /? hemorrhage 4. Hold off on full anti-coagulation 5.check cbc in am Difficult situation in this patient with b/l adrenal hemorrhage and DVT with positive lupus anti-coagulant. Start ASA for now. Will obtain repeat imaging in 3-4 weeks to see if adrenal hemorrhage stable. outpatient evaluation for anti- coagulation. Monitor CBC. will need weekly CBC checks after discharge. Anemia studies ordered. d/w Anatoliy Mortensen MD January 22, 2017 19:07
[2017-01-22] MEDS: CHLORHEXIDINE 0.12% (ORAL KIT) 15 ML CUP MT SCH (20:00)
[2017-01-23] VITALS (12 sets, daily range): BP systolic 138–170; BP diastolic 69–96; PULSE 79–91; RESP 16–23; TEMP 97.1–98.4; O2SAT 82–98
[2017-01-23] MEDS: hydrALAZINE HCL 10 MG TAB PO PRN (03:56)
[2017-01-23] MEDS: CHLORHEXIDINE GLUCONATE 2 % 1 PACK (2 CLOTHS) TOP SCH (04:00)
[2017-01-23] MEDS: HEPARIN SODIUM - SQ 10,000 UNITS/ML VIAL SQ SCH ×3 (05:59→22:14)
[2017-01-23] MEDS: hydrALAZINE HCL 50 MG TAB PO SCH ×3 (05:59→22:14)
[2017-01-23] MEDS: INSULIN NovoLIN REGULAR SUPPLEMENTAL SCALE SQ SCH ×4 (06:01→21:00)
[2017-01-23 06:57] LABS: TRANSFERRIN IRON PROFILE 108 MG/DL (200-360)
[2017-01-23] MEDS: CHLORHEXIDINE 0.12% (ORAL KIT) 15 ML CUP MT SCH ×2 (08:00→20:00)
[2017-01-23] MEDS: ARTIFICIAL TEARS OPTH SOLN 15 ML BTL EACH EYE SCH ×3 (08:21→17:06)
[2017-01-23] MEDS: HYDROCORTISONE SOD SUCCINATE 100 MG VIAL IV PUSH SCH ×2 (08:21→22:13)
[2017-01-23] MEDS: ASPIRIN EC 81 MG TABEC PO SCH (08:22)
[2017-01-23] MEDS: predniSONE 20 MG TAB PO SCH (08:22)
[2017-01-23] MEDS: PANTOPRAZOLE SODIUM 40 MG VIAL IV SCH (08:22)
[2017-01-23] MEDS: FOLIC ACID 1 MG TAB PO SCH (08:23)
[2017-01-23] MEDS: buPROPion HCL 150 MG EXTENDED RELEASE TAB PO SCH (08:23)
[2017-01-23] MEDS: POLYETHYLENE GLYCOL 17 GM PKG PO SCH (08:23)
[2017-01-23] MEDS: MULTIVITAMIN TAB PO SCH (08:23)
[2017-01-23] MEDS: DOCUSATE SODIUM 100 MG CAP PO SCH ×2 (08:23→22:13)
[2017-01-23] MEDS: METOPROLOL TARTRATE 25 MG TAB PO SCH ×2 (08:23→22:14)
[2017-01-23] MEDS: SODIUM CHLORIDE 0.9% FLUSH 10 ML FLUSH IV FLUSH SCH ×2 (08:24→22:13)
[2017-01-23] MEDS: THIAMINE HCL 100 MG TAB PO SCH (08:33)
--- NOTE | 2017-01-23 13:27 | HHI.PYPN ---
Subjective Remarks Patient was seen for psychiatric reevaluation today, , the patient is found laying on his bed, alert, with a bright affect, calm, cooperative and pleasant. Patient denies depressive symptoms, he reports good mood, he says that he is happy that he is about to leave the hospital, he says that he is motivated to follow medical recommendations and comply with follow-ups. He denies anxiety, he denies perceptual disturbances, he denies suicidal and homicidal ideation. Patient is fully oriented 3, no attention deficit, no fluctuation of consciousness at this moment. Patient seems to have a very for understanding of the reason of his hospitalization at this moment also about his medical conditions. Review of Systems Other No somatic complaints Objective Alert: Yes [place]: Person, Place, Date, Situation Mood: Calm Affect: Euthymic Memory Intact: Immediate, Recent, Remote Hallucinations: Other (patient denies hallucinations) Delusions: No Delusion Type: Other (no delusions elicited) Suicidal: Ideation (he denies) Homicidal: Ideation (he denies) Insight/Judgment Good Labs Test 01/23/17 05:08 Iron Level 115 MCG/DL Total Iron Binding Capacity 151 MCG/DL Percent Iron Saturation 76.1 % Transferrin 108 MG/DL Vitamin B12 Level 1434 PG/ML Folate GREATER THAN 20.0 NG/ML Vitals/IOs Vital Signs Date Time Temp Pulse Resp B/P Pulse Ox O2 Delivery O2 Flow Rate FiO2 01/23/17 12:00 97.9 89 20 149/69 98 01/23/17 10:40 Nasal Cannula 2.00 01/19/17 23:18 21 Intake and Output 01/22/17 01/22/17 01/23/17 08:00 16:00 00:00 Intake Total 1080 ml 240 ml Output Total 950 ml 450 ml 1000 ml Balance -950 ml 630 ml -760 ml Assessment & Plan Problem List: (1) Delirium due to another medical condition ICD Code: F05 (2) Dementia of the Alzheimer's type, with late onset, with delirium Assessment & Plan: At the moment of this evaluation the patient does not present any significant, concerning for acute evidence of subjective or objective depression, anxiety, dinora, psychosis or delirium. Patient denies suicidal and homicidal ideation, he denies visual and auditory hallucinations. Patient is oriented 3, without fluctuation of consciousness, or attention deficit. Patient seems to be aware of the importance of following medical recommendations, his no refusing medication or placement at this moment. He seems to be in agreement with the plan. At the moment of this evaluation patient does not have any psychiatric contraindication to participate a medical decisions. He keeps his mental capacity to participate in his discharge plan and agree with treatment. Patient does not need any immediate psychiatric intervention. ICD Code: G30.1 Assessment & Plan Estimated LOS: days Justification for Cont. Inpt. Patient does not meet criteria for psychiatric hospitalization at this moment. Curt Lao MD January 23, 2017 13:27
--- NOTE | 2017-01-23 14:58 | HHI.PR ---
Subjective Remarks states very good appetitie, no abdominal pain, nausea or vomiting complains Objective Vitals Vital Signs Date Time Temp Pulse Resp B/P Pulse Ox O2 Delivery O2 Flow Rate FiO2 01/23/17 12:00 97.9 89 20 149/69 98 01/23/17 10:40 97 Nasal Cannula 2.00 01/23/17 08:15 90 01/23/17 08:15 97 Nasal Cannula 2.00 01/23/17 08:00 97.4 85 20 157/87 98 01/23/17 05:11 80 16 161/87 01/23/17 04:00 80 17 168/96 01/23/17 03:20 97.3 80 17 170/85 97 01/23/17 00:00 97.1 91 18 151/89 98 01/22/17 21:00 98 Nasal Cannula 2.00 01/22/17 20:19 80 01/22/17 20:00 96.3 88 17 142/85 95 01/22/17 19:29 97 Nasal Cannula 2.00 01/22/17 16:29 Nasal Cannula 2.00 01/22/17 16:00 97.8 87 18 153/90 98 I/O 01/22/17 01/22/17 01/22/17 01/23/17 01/23/17 01/23/17 07:00 15:00 23:00 07:00 15:00 23:00 Intake Total 1080 ml 340 ml 720 ml Output Total 1050 ml 400 ml 850 ml 1300 ml 1150 ml Balance -1050 ml 680 ml -850 ml -960 ml -430 ml Intake Oral 1080 ml 240 ml 720 ml IV Total 100 ml Output Urine Total 1050 ml 400 ml 850 ml 1300 ml 1150 ml # Bowel Movements 3 1 2 Result Diagram: 01/22/17 0520 01/22/17 0520 Imaging Last Impressions Abdomen MRI 01/18/17 0000 Signed Impressions: Service Date/Time: Wednesday, January 18, 2017 10:36 - CONCLUSION: Evolving changes in the adrenal glands with evidence of increasing edema and restricted diffusion. These changes are relate to bilateral adrenal hemorrhage previously described. Significant potential for adrenal insufficiency should be considered. Distended gallbladder. No significant interval change. Matthew Aguirre MD Small Bowel X-Ray 01/16/17 0000 Signed Impressions: Service Date/Time: Monday, January 16, 2017 15:58 - CONCLUSION: Unremarkable small bowel examination. Dk Benedict MD IVC Filter Placement X-Ray 01/16/17 Signed Impressions: Service Date/Time: Monday, January 16, 2017 10:36 - CONCLUSION: Uncomplicated inferior vena cava filter placement as above. Matthew Aguirre MD Chest X-Ray 01/15/17 Signed Impressions: Service Date/Time: Sunday, January 15, 2017 14:51 - CONCLUSION: Decreasing densities in the right lung. Dk Benedict MD Lower Extremity Ultrasound 01/12/17 Signed Impressions: Service Date/Time: Thursday, January 12, 2017 12:08 - CONCLUSION: 1. Deep venous thrombosis which is nonocclusive in the superficial femoral and popliteal veins. 2. Superficial venous thrombosis in the greatest saphenous vein. Tyler Nagy MD Abdomen/Pelvis CT 01/11/17 Signed Impressions: Service Date/Time: Wednesday, January 11, 2017 20:00 - CONCLUSION: 1. Subacute hemorrhage of both adrenal glands, not significantly changed on the left, smaller on the right. 2. Increased/new pleural fluid at both bases, new, small ascites, new body wall edema/anasarca. 3. No evidence of bowel obstruction. Nasogastric tube coiled in the stomach. 4. Patchy airspace consolidation of the right lung base, new. Santos Arce MD Head Magnetic Resonance Angiography 01/05/17 Signed Impressions: Service Date/Time: Thursday, January 05, 2017 14:37 - CONCLUSION: Normal examination. KMalena Odell MD Head CT 01/04/17 0848 Signed Impressions: Service Date/Time: Wednesday, January 04, 2017 08:58 - CONCLUSION: Unremarkable examination for each. Tyler Nagy MD Neck CT 01/04/17 Signed Impressions: Service Date/Time: Wednesday, January 04, 2017 20:49 - CONCLUSION: Questionable thickening of the vocal cords. These can be directly inspected. Otherwise the study appears grossly normal for a noncontrast CT of the neck. Santos Whitley MD Chest CT 01/04/17 Signed Impressions: Service Date/Time: Wednesday, January 04, 2017 20:50 - CONCLUSION: 1. Mild bilateral pleural effusions with suspected accompanying areas of atelectasis or consolidation at the lung bases. 2. Coronary artery calcifications. Santos Whitley MD Brain MRI 01/04/17 0000 Signed Impressions: Service Date/Time: Wednesday, January 04, 2017 21:19 - CONCLUSION: Atrophy and mild chronic white matter changes. No acute infarct or other acute intracranial abnormality. Santos Arce MD Objective Remarks awake and alert, oriented to person and apace and year on exam ff all commands anicteric lungs decreased breath sounds, bases, no rales or wheezes regular rhythm abdomen soft, nontender samaniego in place extremities- moves all equally Urinary Catheter: Yes Assessment to: Continue Samaniego insert reason: Surgical/Invasive Proced Date of Insertion: Jan 04, 2017 Date of Insertion: Jan 04, 2017 Side: Left Location: Subclavian A/P Problem List: (1) Thrombocytosis ICD Code: D47.3 Status: Acute (2) Depression ICD Code: F32.9 Status: Acute (3) Anticoagulant long-term use ICD Code: Z79.01 Status: Acute (4) Leg wound, right ICD Code: S81.801A Status: Acute (5) Hypo-osmolality and hyponatremia ICD Code: E87.1 Status: Acute (6) Hyperglycemia ICD Code: R73.9 Status: Acute (7) Hypertension ICD Code: I10 Status: Acute (8) Abdominal pain ICD Code: R10.9 Status: Acute (9) DVT (deep venous thrombosis) ICD Code: I82.409 Status: Acute (10) Leukocytosis ICD Code: D72.829 Status: Acute (11) Distended abdomen ICD Code: R14.0 Status: Acute Assessment and Plan 76 years old male Acute toxic metabolic encephalopathy-resolving History of EtOH Depression/anxiety CT head 01/04 reveals no acute intracranial abnormalities on bupropion 150 mg by mouth daily, continue to hold narcotics. po Thiamine/folate/multivitamin daily with EtOH use. MRI/A brain 01/05- normal exam Right lower extremity DVT Fluid overload Hypertension BPs still elevated. Lopressor 100 mg BID- increase hydralazine scheduled 50 mg po q8hrs 01/05 right lower extremity Dopplers ultrasound for DVT-partially occlusive thrombus right SFA, popliteal and peroneal veins Status post IVC filter placement on 01/16 Hematology following. Pt has b/l adrenal hemorrhage and DVT with positive lupus anti-coagulant. However due to high risk of adrenal bleeding, therapeutic dose anti-coagulation is contra-indicated. Has IVC filter in place. hematology agreeable to prophylactic heparin S/P Acute hypoxic respiratory failure Extubated 01/15/17 Required intubation 01/05 for labored breathing due to bronchospasm. Extubated 01/13 but had to be reintubated CXR today Ileus CT abd/pelvis 01/04 revealed right 3.6 x 2.4 cm and left 2.5 x 1.4 cm adrenal masses. Distal esophagus with thickening. Dilated stomach. Colonic Diverticuli. Compressed colon. Possible bowel obstruction. Dr. Saleh/general surgery consulted-medical management at this time. Small bowel follow-through done on 01/16 was unremarkable. MRI suggested bilateral adrenal hemorrhage - hypercoagulable workup in progress and being followed by hematology. Negative ultrasound gallbladder 01/02 clinically tolerating diet thus far Acute kidney injury Proteinuria IMPROVING. Ff BMP Patient states he needed kidney biopsy in past but refused Accurate I's and O's Monitor urine output ADH elevated, ACTH normal range encouraged po hydration, B/L adrenal hemorrhage See CT abdomen/pelvis Follow-up on adrenal insufficiency workup. ADH elevated, ACTH normal range off solucortef. on po prednisone 40mg po daily and continue to wean. caution and consider renal insufficiency. Sliding-scale insulin with Accu-Cheks to maintain euglycemia/low regimen MRI Evolving changes in the adrenal glands with evidence of increasing edema and restricted diffusion. These changes are relate to bilateral adrenal hemorrhage previously described. Leukocytosis Thrombocytosis Chronic Xarelto use Left lower extremity DVT Unable to anticoagulate for LE DVT due to adrenal hemorrhage s/p IR for IVC filter placement today 01/16/17 MTFHR gene mutation positive, phosphatidylserine antibody titer elevated, lupus anticoagulant test abnormal. Hematology to decide regarding resuming heparin for full anticoagulation. Doubt infectious etiology. ID Dr. Salinas reviewed chart and no abx, she has signed off UA negative. Procalcitonin normal 01/04 - blood cultures 2 - negative 01/04 - UA - negative 01/02 - blood cultures 2 - negative Hyponatremia - hypoosmolar- now hypernatremic, resolved Na 139 01/20/1701/04 Cortisol level equivocal TSH was 1.12. Uric acid 3.0. f/u Lipid panel 2% NaCl infusion-discontinued Right lower extremity wound being managed by wound care. Psychiatry evaluated the patient and he does not have capacity to make appropriate decisions, recommendations are for possible placement in a long term facility. Pt seems to be more aware of his surrounding today, would like for psych to re-evaluate for capacity. I did discuss w CM and I have asked them to please reach out to family for assistance w d/c planning. Apparently pt wants to go to a SNF [facility] but apparently yesterday he was agreeable to go to a rehab here then go down to [facility]. PT also following pt and recommends PT at rehab - DVT proph - SCD/holding Xarelto in light adrenal hemorrhage. IVC filter . on subcutaneous heparin 5000 units every 8 hourly and toleration it well thus far. Discharge Planning continue to wean steroids monitor BP and adjust BP meds. monitor Cr. function anticipate d/c to SNF once we can reach out to family and when psych re- evaluates pt as for now pt was deemed not capacitated to make decisions by psychiatry. Problem Qualifiers (1) Depression: (2) Leg wound, right: Qualified Code: S81.801D - Leg wound, right, subsequent encounter (3) Hypertension: Qualified Code: I10 - Essential hypertension Hansel Mackenzie MD January 23, 2017 14:58 Hansel Mackenzie MD January 23, 2017 14:58
--- NOTE | 2017-01-23 16:53 | RADRPT ---
EXAM DATE/TIME: 01/23/2017 16:00 [facility] COMPARISON: CHEST SINGLE AP, January 15, 2017, 14:51. SMALL BOWEL SERIES W/GASTROGRAFIN, January 16, 2017, 15:58. INDICATIONS : Congestion. MEDICAL HISTORY : Hypertension. SURGICAL HISTORY : None. ENCOUNTER: Subsequent ACUITY: 2 weeks PAIN SCORE: 0/10 LOCATION: Left chest FINDINGS: The heart is normal in size. The left subclavian line is in good position. There are mild atelectatic changes at the left lung base. There are minimal bilateral effusions. These changes are stable tiffanie red to prior exam. The visualized bony structures are grossly intact. CONCLUSION: 1. Small bilateral effusions with basilar atelectasis on the left. Flash Clinton MD on January 23, 2017 at 16:50 Board Certified Radiologist. This report was verified electronically.
[2017-01-23 17:31] LABS: BICARBONATE 29.3 MEQ/L (21.0-32.0); POTASSIUM 3.8 MEQ/L (3.5-5.1)
[2017-01-24] VITALS (7 sets, daily range): BP systolic 123–145; BP diastolic 69–87; PULSE 72–83; RESP 17–18; TEMP 96.9–99; O2SAT 95–98
[2017-01-24] MEDS: CHLORHEXIDINE GLUCONATE 2 % 1 PACK (2 CLOTHS) TOP SCH (04:00)
[2017-01-24] MEDS: HEPARIN SODIUM - SQ 10,000 UNITS/ML VIAL SQ SCH ×3 (06:05→22:28)
[2017-01-24] MEDS: INSULIN NovoLIN REGULAR SUPPLEMENTAL SCALE SQ SCH ×4 (06:05→22:27)
[2017-01-24] MEDS: hydrALAZINE HCL 50 MG TAB PO SCH ×3 (06:05→22:27)
[2017-01-24] MEDS: CHLORHEXIDINE 0.12% (ORAL KIT) 15 ML CUP MT SCH ×2 (08:00→19:46)
[2017-01-24] MEDS: DOCUSATE SODIUM 100 MG CAP PO SCH ×2 (09:04→21:00)
[2017-01-24] MEDS: PANTOPRAZOLE SOD 40 MG DELAYED RELEASE TAB PO SCH (09:04)
[2017-01-24] MEDS: METOPROLOL TARTRATE 25 MG TAB PO SCH ×2 (09:04→22:27)
[2017-01-24] MEDS: THIAMINE HCL 100 MG TAB PO SCH (09:05)
[2017-01-24] MEDS: HYDROCORTISONE SOD SUCCINATE 100 MG VIAL IV PUSH SCH (09:05)
[2017-01-24] MEDS: FOLIC ACID 1 MG TAB PO SCH (09:05)
[2017-01-24] MEDS: ASPIRIN EC 81 MG TABEC PO SCH (09:05)
[2017-01-24] MEDS: SODIUM CHLORIDE 0.9% FLUSH 10 ML FLUSH IV FLUSH SCH ×2 (09:05→22:28)
[2017-01-24] MEDS: predniSONE 10 MG TAB PO SCH (09:05)
[2017-01-24] MEDS: MULTIVITAMIN TAB PO SCH (09:05)
[2017-01-24] MEDS: POLYETHYLENE GLYCOL 17 GM PKG PO SCH (09:06)
[2017-01-24] MEDS: ARTIFICIAL TEARS OPTH SOLN 15 ML BTL EACH EYE SCH ×3 (09:06→17:38)
[2017-01-24] MEDS: buPROPion HCL 150 MG EXTENDED RELEASE TAB PO SCH (09:07)
--- NOTE | 2017-01-24 13:04 | HHI.PR ---
Subjective Remarks tolerating po very well appears to have good insight encourage increase activity Objective Vitals Vital Signs Date Time Temp Pulse Resp B/P Pulse Ox O2 Delivery O2 Flow Rate FiO2 01/24/17 12:00 99.0 82 18 123/69 96 01/24/17 11:53 Nasal Cannula 2.00 01/24/17 09:16 Nasal Cannula 2.00 21 01/24/17 08:00 98.0 80 18 145/87 96 01/24/17 04:00 97.1 76 17 145/80 98 01/24/17 04:00 Nasal Cannula 2.00 01/24/17 00:00 97.2 72 17 139/76 95 01/24/17 00:00 Nasal Cannula 2.00 01/23/17 20:00 98.4 79 17 138/79 97 01/23/17 20:00 80 01/23/17 20:00 Nasal Cannula 2.00 01/23/17 17:58 97.8 81 23 141/75 82 01/23/17 17:36 98 Nasal Cannula 2.00 01/23/17 15:50 81 141/75 82 I/O 01/23/17 01/23/17 01/23/17 01/24/17 01/24/17 01/24/17 07:00 15:00 23:00 07:00 15:00 23:00 Intake Total 340 ml 840 ml 480 ml 480 ml Output Total 1300 ml 1450 ml 300 ml 1000 ml 450 ml Balance -960 ml -610 ml -300 ml -520 ml 30 ml Intake Oral 240 ml 840 ml 480 ml 480 ml IV Total 100 ml Output Urine Total 1300 ml 1450 ml 300 ml 1000 ml 450 ml # Bowel Movements 1 2 1 Result Diagram: 01/22/17 0520 01/23/17 1633 Imaging Last Impressions Chest X-Ray 01/23/17 1508 Signed Impressions: Service Date/Time: Monday, January 23, 2017 16:00 - CONCLUSION: 1. Small bilateral effusions with basilar atelectasis on the left. Flash Clinton MD Abdomen MRI 01/18/17 0000 Signed Impressions: Service Date/Time: Wednesday, January 18, 2017 10:36 - CONCLUSION: Evolving changes in the adrenal glands with evidence of increasing edema and restricted diffusion. These changes are relate to bilateral adrenal hemorrhage previously described. Significant potential for adrenal insufficiency should be considered. Distended gallbladder. No significant interval change. Matthew Aguirre MD Small Bowel X-Ray 01/16/17 Signed Impressions: Service Date/Time: Monday, January 16, 2017 15:58 - CONCLUSION: Unremarkable small bowel examination. Dk Benedict MD IVC Filter Placement X-Ray 01/16/17 Signed Impressions: Service Date/Time: Monday, January 16, 2017 10:36 - CONCLUSION: Uncomplicated inferior vena cava filter placement as above. Matthew Aguirre MD Lower Extremity Ultrasound 01/12/17 Signed Impressions: Service Date/Time: Thursday, January 12, 2017 12:08 - CONCLUSION: 1. Deep venous thrombosis which is nonocclusive in the superficial femoral and popliteal veins. 2. Superficial venous thrombosis in the greatest saphenous vein. Tyler Nagy MD Abdomen/Pelvis CT 01/11/17 Signed Impressions: Service Date/Time: Wednesday, January 11, 2017 20:00 - CONCLUSION: 1. Subacute hemorrhage of both adrenal glands, not significantly changed on the left, smaller on the right. 2. Increased/new pleural fluid at both bases, new, small ascites, new body wall edema/anasarca. 3. No evidence of bowel obstruction. Nasogastric tube coiled in the stomach. 4. Patchy airspace consolidation of the right lung base, new. Santos Arce MD Head Magnetic Resonance Angiography 01/05/17 Signed Impressions: Service Date/Time: Thursday, January 05, 2017 14:37 - CONCLUSION: Normal examination. KMalena Odell MD Head CT 01/04/17 0848 Signed Impressions: Service Date/Time: Wednesday, January 04, 2017 08:58 - CONCLUSION: Unremarkable examination for each. Tyler Nagy MD Neck CT 01/04/17 Signed Impressions: Service Date/Time: Wednesday, January 04, 2017 20:49 - CONCLUSION: Questionable thickening of the vocal cords. These can be directly inspected. Otherwise the study appears grossly normal for a noncontrast CT of the neck. Santos Whitley MD Chest CT 01/04/17 Signed Impressions: Service Date/Time: Wednesday, January 04, 2017 20:50 - CONCLUSION: 1. Mild bilateral pleural effusions with suspected accompanying areas of atelectasis or consolidation at the lung bases. 2. Coronary artery calcifications. Santos Whitley MD Brain MRI 01/04/17 0000 Signed Impressions: Service Date/Time: Wednesday, January 04, 2017 21:19 - CONCLUSION: Atrophy and mild chronic white matter changes. No acute infarct or other acute intracranial abnormality. Santos Arce MD Objective Remarks awake and alert, oriented to person and apace and year ff all commands anicteric lungs decreased breath sounds, bases, no rales or wheezes regular rhythm abdomen soft, nontender samaniego in place extremities- moves all equally Date of Insertion: Jan 04, 2017 Date of Insertion: Jan 04, 2017 Side: Left Location: Subclavian A/P Problem List: (1) Thrombocytosis ICD Code: D47.3 Status: Acute (2) Depression ICD Code: F32.9 Status: Acute (3) Anticoagulant long-term use ICD Code: Z79.01 Status: Acute (4) Leg wound, right ICD Code: S81.801A Status: Acute (5) Hypo-osmolality and hyponatremia ICD Code: E87.1 Status: Acute (6) Hyperglycemia ICD Code: R73.9 Status: Acute (7) Hypertension ICD Code: I10 Status: Acute (8) Abdominal pain ICD Code: R10.9 Status: Acute (9) DVT (deep venous thrombosis) ICD Code: I82.409 Status: Acute (10) Leukocytosis ICD Code: D72.829 Status: Acute (11) Distended abdomen ICD Code: R14.0 Status: Acute Assessment and Plan 76 years old male Acute toxic metabolic encephalopathy-resolving History of EtOH Depression/anxiety CT head 01/04 reveals no acute intracranial abnormalities on bupropion 150 mg by mouth daily, continue to hold narcotics. po Thiamine/folate/multivitamin daily with EtOH use. MRI/A brain 01/05- normal exam Right lower extremity DVT Fluid overload Hypertension BPs still elevated. Lopressor 100 mg BID- increase hydralazine scheduled 50 mg po q8hrs 01/05 right lower extremity Dopplers ultrasound for DVT-partially occlusive thrombus right SFA, popliteal and peroneal veins Status post IVC filter placement on 01/16 Hematology following. Pt has b/l adrenal hemorrhage and DVT with positive lupus anti-coagulant. However due to high risk of adrenal bleeding, therapeutic dose anti-coagulation is contra-indicated. Has IVC filter in place. hematology agreeable to prophylactic heparin S/P Acute hypoxic respiratory failure Extubated 01/15/17 Required intubation 01/05 for labored breathing due to bronchospasm. Extubated 01/13 but had to be reintubated CXR 01/23- stable Ileus CT abd/pelvis 01/04 revealed right 3.6 x 2.4 cm and left 2.5 x 1.4 cm adrenal masses. Distal esophagus with thickening. Dilated stomach. Colonic Diverticuli. Compressed colon. Possible bowel obstruction. Dr. Saleh/general surgery consulted-medical management at this time. Small bowel follow-through done on 01/16 was unremarkable. MRI suggested bilateral adrenal hemorrhage - hypercoagulable workup in progress and being followed by hematology. Negative ultrasound gallbladder 01/02 clinically tolerating diet thus far Acute kidney injury Proteinuria IMPROVING. [facility] Patient states he needed kidney biopsy in past but refused Accurate I's and O's Monitor urine output ADH elevated, ACTH normal range encouraged po hydration, B/L adrenal hemorrhage See CT abdomen/pelvis Follow-up on adrenal insufficiency workup. ADH elevated, ACTH normal range off solucortef. on po prednisone 40mg po daily and continue to wean. caution and consider renal insufficiency. Sliding-scale insulin with Accu-Cheks to maintain euglycemia/low regimen MRI Evolving changes in the adrenal glands with evidence of increasing edema and restricted diffusion. These changes are relate to bilateral adrenal hemorrhage previously described. Leukocytosis Thrombocytosis Chronic Xarelto use Left lower extremity DVT Unable to anticoagulate for LE DVT due to adrenal hemorrhage s/p IR for IVC filter placement today 01/16/17 MTFHR gene mutation positive, phosphatidylserine antibody titer elevated, lupus anticoagulant test abnormal. Hematology to decide regarding resuming heparin for full anticoagulation. Doubt infectious etiology. ID Dr. Salinas reviewed chart and no abx, she has signed off UA negative. Procalcitonin normal 01/04 - blood cultures 2 - negative 01/04 - UA - negative 01/02 - blood cultures 2 - negative Hyponatremia - hypoosmolar- now hypernatremic, resolved Na 139 01/20/1701/04 Cortisol level equivocal TSH was 1.12. Uric acid 3.0. f/u Lipid panel 2% NaCl infusion-discontinued Right lower extremity wound being managed by wound care. Psychiatry evaluated the patient and he does not have capacity to make appropriate decisions, recommendations are for possible placement in a long-term facility. Pt seems to be more aware of his surrounding today, would like for psych to re-evaluate for capacity. I did discuss w CM and I have asked them to please reach out to family for assistance w d/c planning. [place] but apparently yesterday he was agreeable to go to a rehab here then go down to [facility]. PT also following pt and recommends PT at rehab - DVT proph - SCD/holding Xarelto in light adrenal hemorrhage. IVC filter . on subcutaneous heparin 5000 units every 8 hourly and toleration it well thus far. Discharge Planning continue to wean steroids monitor BP and adjust BP meds. monitor Cr. function anticipate d/c to SNF once we can reach out to family and when psych re- evaluates pt as for now pt was deemed not capacitated to make decisions by psychiatry. Problem Qualifiers (1) Depression: (2) Leg wound, right: Qualified Code: S81.801D - Leg wound, right, subsequent encounter (3) Hypertension: Qualified Code: I10 - Essential hypertension Hansel Mackenzie MD January 24, 2017 13:04
--- NOTE | 2017-01-24 23:07 | PD.ONC.PN ---
Subjective Subjective Remarks doing okay resting comfortable denies any pain no bleeding no LE swelling no dyspnea/chest pain Objective Data Date Time Temp Pulse Resp B/P Pulse Ox O2 Delivery O2 Flow Rate FiO2 01/24/17 20:00 96.9 83 17 128/76 98 01/24/17 17:41 95 Nasal Cannula 2.00 01/24/17 16:00 98.6 81 18 132/75 95 01/24/17 12:00 99.0 82 18 123/69 96 01/24/17 11:53 Nasal Cannula 2.00 01/24/17 09:16 Nasal Cannula 2.00 21 01/24/17 08:00 98.0 80 18 145/87 96 01/24/17 04:00 97.1 76 17 145/80 98 01/24/17 04:00 Nasal Cannula 2.00 01/24/17 00:00 97.2 72 17 139/76 95 01/24/17 00:00 Nasal Cannula 2.00 01/24/17 01/24/17 01/24/17 07:00 15:00 23:00 Intake Total 480 ml 1080 ml Output Total 1000 ml 450 ml 650 ml Balance -520 ml 630 ml -650 ml Result Diagram: 01/22/17 0520 01/23/17 1633 Administered Medications Medications (Trade) Dose Ordered Sig/Jose Route PRN Reason Start Time Stop Time Status Last Admin Dose Admin Sodium Chloride (NS Flush) 2 ml BID IV FLUSH 01/04/17 21:00 01/24/17 22:28 Artificial Tears (Tears Naturale Opth Soln) 1 drop TID EACH EYE 01/04/17 18:00 01/24/17 09:06 Docusate Sodium (Colace) 100 mg BID PO 01/04/17 21:00 01/24/17 09:04 Chlorhexidine Gluconate (Chlorhexidine 2% Cloth) 3 pack Taper DAILY@04 TOP 01/05/17 04:00 01/01/18 03:59 01/20/17 04:00 Folic Acid (Folate) 1 mg DAILY PO 01/05/17 09:00 01/24/17 09:05 Multivitamins (Theragran) 1 tab DAILY PO 01/05/17 09:00 01/24/17 09:05 Labetalol HCl (Trandate Inj) 10 mg Q1HR PRN IV PUSH SBP>160, DBP>90, HR>65 01/04/17 15:30 01/16/17 07:22 Nitroglycerin (Nitroglycerin 2% Oint) 2 inch Q6HR PRN TOPICAL SBP>160, DBP>90 01/04/17 15:30 01/04/17 18:17 Chlorhexidine Gluconate (Peridex 0.12% Liq) 15 ml BID@08,20 MT 01/05/17 08:00 01/15/17 08:00 Polyethylene Glycol (Miralax) 17 gm DAILY PO 01/17/17 09:00 01/24/17 09:06 Heparin Sodium (Porcine) (Heparin Inj) 5,000 units Q8HR SQ 01/17/17 10:00 01/24/17 22:28 Amlodipine Besylate (Norvasc) 10 mg DAILY PO 01/17/17 16:30 01/24/17 09:05 Clonidine (Catapres) 0.1 mg Q8HR PRN PO SBP>180 0r DBP>100 01/17/17 16:30 01/21/17 03:41 Hydralazine HCl (Apresoline) 10 mg Q6HR PRN PO SBP>160, DBP>90 01/19/17 08:45 01/23/17 03:56 Bupropion HCl (Wellbutrin Xl 24 Hr) 150 mg DAILY PO 01/20/17 09:00 01/24/17 09:07 Thiamine HCl (Vitamin B1) 100 mg DAILY PO 01/20/17 09:00 01/24/17 09:05 Metoprolol Tartrate (Lopressor) 100 mg Q12HR PO 01/21/17 09:00 01/24/17 22:27 Hydralazine HCl (Apresoline) 50 mg Q8HR PO 01/22/17 14:00 01/24/17 22:27 Aspirin (Ecotrin Ec) 81 mg DAILY PO 01/23/17 09:00 01/24/17 09:05 Prednisone (Deltasone) 30 mg DAILY PO 01/24/17 09:00 01/24/17 09:05 Pantoprazole Sodium (Protonix) 40 mg DAILY PO 01/24/17 09:00 01/24/17 09:04 Objective Remarks GENERAL: nad LYMPHATIC: No adenopathy. CARDIOVASCULAR: Regular rate and rhythm without murmurs. RESPIRATORY: Breath sounds equal bilaterally. No accessory muscle use. GASTROINTESTINAL: Abdomen soft, non-tender, nondistended. EXTREMITIES: No cyanosis, or edema. Assessment/Plan Problem List: (1) DVT (deep venous thrombosis) Status: Acute Plan: -- Pt not a candidate for anticoagulation due to subacute hemorrhages of the adrenal gland. -- s/p IVC filter placement on 01/16/17 Assessment 76 y/o male admitted for AMS who went into respiratory failure; Hematology consulted for RLE DVT with bilateral adrenal hemorrhages. Plan 1. s/p IVC filter placement. 2. Hb stable. On heparin prophylactic dos and asprin 3. MRI shows persistent adrenal edema /? hemorrhage 4. Hold off on full anti-coagulation 5. check cbc daily 6. Anemia studies show good iron saturation and levels. Difficult situation in this patient with b/l adrenal hemorrhage and DVT with positive lupus anti-coagulant. Start ASA for now. Will obtain repeat imaging in 3-4 weeks to see if adrenal hemorrhage stable. outpatient evaluation for anti- coagulation. Monitor CBC. will need weekly CBC checks after discharge. d/w Anatoliy Mortensen MD January 24, 2017 23:07
[2017-01-25] VITALS: BP 145/77; PULSE 76; RESP 18; TEMP 97.7; O2SAT 98
[2017-01-25] MEDS: CHLORHEXIDINE GLUCONATE 2 % 1 PACK (2 CLOTHS) TOP SCH (03:58)
[2017-01-25 04:00] VITALS: BP 129/80; PULSE 74; RESP 17; TEMP 96.8; O2SAT 99
[2017-01-25] MEDS: INSULIN NovoLIN REGULAR SUPPLEMENTAL SCALE SQ SCH ×2 (06:29→11:07)
[2017-01-25] MEDS: hydrALAZINE HCL 50 MG TAB PO SCH (06:29)
[2017-01-25] MEDS: HEPARIN SODIUM - SQ 10,000 UNITS/ML VIAL SQ SCH (06:29)
--- NOTE | 2017-01-25 07:52 | HHI.PR ---
Subjective Remarks awake and alert, chest pains or shortness of breath ate 100% but complainsed about his breakfast- did not get the food he ordered no pain complains Objective Vitals Vital Signs Date Time Temp Pulse Resp B/P Pulse Ox O2 Delivery O2 Flow Rate FiO2 01/25/17 04:00 96.8 74 17 129/80 99 01/25/17 00:00 97.7 76 18 145/77 98 01/24/17 22:27 Nasal Cannula 2.00 01/24/17 20:00 96.9 83 17 128/76 98 01/24/17 20:00 81 01/24/17 17:41 95 Nasal Cannula 2.00 01/24/17 16:00 98.6 81 18 132/75 95 01/24/17 12:00 99.0 82 18 123/69 96 01/24/17 11:53 Nasal Cannula 2.00 01/24/17 09:16 Nasal Cannula 2.00 21 01/24/17 08:00 98.0 80 18 145/87 96 I/O 01/24/17 01/24/17 01/24/17 01/25/17 01/25/17 01/25/17 07:00 15:00 23:00 07:00 15:00 23:00 Intake Total 480 ml 1080 ml Output Total 1000 ml 450 ml 650 ml 1050 ml Balance -520 ml 630 ml -650 ml -1050 ml Intake Oral 480 ml 1080 ml Output Urine Total 1000 ml 450 ml 650 ml 1050 ml # Bowel Movements 2 1 Result Diagram: 01/22/17 0520 01/23/17 1633 Imaging Last Impressions Chest X-Ray 01/23/17 1508 Signed Impressions: Service Date/Time: Monday, January 23, 2017 16:00 - CONCLUSION: 1. Small bilateral effusions with basilar atelectasis on the left. Flash Clinton MD Abdomen MRI 01/18/17 0000 Signed Impressions: Service Date/Time: Wednesday, January 18, 2017 10:36 - CONCLUSION: Evolving changes in the adrenal glands with evidence of increasing edema and restricted diffusion. These changes are relate to bilateral adrenal hemorrhage previously described. Significant potential for adrenal insufficiency should be considered. Distended gallbladder. No significant interval change. Matthew Aguirre MD Small Bowel X-Ray 01/16/17 0000 Signed Impressions: Service Date/Time: Monday, January 16, 2017 15:58 - CONCLUSION: Unremarkable small bowel examination. Dk Benedict MD IVC Filter Placement X-Ray 01/16/17 Signed Impressions: Service Date/Time: Monday, January 16, 2017 10:36 - CONCLUSION: Uncomplicated inferior vena cava filter placement as above. Matthew Aguirre MD Lower Extremity Ultrasound 01/12/17 Signed Impressions: Service Date/Time: Thursday, January 12, 2017 12:08 - CONCLUSION: 1. Deep venous thrombosis which is nonocclusive in the superficial femoral and popliteal veins. 2. Superficial venous thrombosis in the greatest saphenous vein. Tyler Nagy MD Abdomen/Pelvis CT 01/11/17 Signed Impressions: Service Date/Time: Wednesday, January 11, 2017 20:00 - CONCLUSION: 1. Subacute hemorrhage of both adrenal glands, not significantly changed on the left, smaller on the right. 2. Increased/new pleural fluid at both bases, new, small ascites, new body wall edema/anasarca. 3. No evidence of bowel obstruction. Nasogastric tube coiled in the stomach. 4. Patchy airspace consolidation of the right lung base, new. Santos Arce MD Head Magnetic Resonance Angiography 01/05/17 Signed Impressions: Service Date/Time: Thursday, January 05, 2017 14:37 - CONCLUSION: Normal examination. Esperanza Odell MD Head CT 01/04/17 0848 Signed Impressions: Service Date/Time: Wednesday, January 04, 2017 08:58 - CONCLUSION: Unremarkable examination for each. Tyler Nagy MD Neck CT 01/04/17 Signed Impressions: Service Date/Time: Wednesday, January 04, 2017 20:49 - CONCLUSION: Questionable thickening of the vocal cords. These can be directly inspected. Otherwise the study appears grossly normal for a noncontrast CT of the neck. Santos Whitley MD Chest CT 01/04/17 Signed Impressions: Service Date/Time: Wednesday, January 04, 2017 20:50 - CONCLUSION: 1. Mild bilateral pleural effusions with suspected accompanying areas of atelectasis or consolidation at the lung bases. 2. Coronary artery calcifications. Santos Whitley MD Brain MRI 4/28/17 0000 Signed Impressions: Service Date/Time: Wednesday, January 04, 2017 21:19 - CONCLUSION: Atrophy and mild chronic white matter changes. No acute infarct or other acute intracranial abnormality. Santos Arce MD Objective Remarks awake and alert, oriented to person and apace and year ff all commands anicteric lungs decreased breath sounds, bases, no rales or wheezes regular rhythm abdomen soft, nontender samaniego in place extremities- moves all equally Date of Insertion: Jan 04, 2017 Date of Removal: January 25, 2017 Date of Insertion: Jan 04, 2017 Side: Left Location: Subclavian A/P Problem List: (1) Thrombocytosis ICD Code: D47.3 Status: Acute (2) Depression ICD Code: F32.9 Status: Acute (3) Anticoagulant long-term use ICD Code: Z79.01 Status: Acute (4) Leg wound, right ICD Code: S81.801A Status: Acute (5) Hypo-osmolality and hyponatremia ICD Code: E87.1 Status: Acute (6) Hyperglycemia ICD Code: R73.9 Status: Acute (7) Hypertension ICD Code: I10 Status: Acute (8) Abdominal pain ICD Code: R10.9 Status: Acute (9) DVT (deep venous thrombosis) ICD Code: I82.409 Status: Acute (10) Leukocytosis ICD Code: D72.829 Status: Acute (11) Distended abdomen ICD Code: R14.0 Status: Acute Assessment and Plan 76 years old male Acute toxic metabolic encephalopathy-resolving History of EtOH Depression/anxiety CT head 01/04 reveals no acute intracranial abnormalities on bupropion 150 mg by mouth daily, continue to hold narcotics. po Thiamine/folate/multivitamin daily with EtOH use. MRI/A brain 01/05- normal exam Right lower extremity DVT Hypertension- better readings Lopressor 100 mg BID- increase hydralazine scheduled 50 mg po q8hrs 01/05 right lower extremity Dopplers ultrasound for DVT-partially occlusive thrombus right SFA, popliteal and peroneal veins Status post IVC filter placement on 01/16 Hematology following. Pt has b/l adrenal hemorrhage and DVT with positive lupus anti-coagulant. However due to high risk of adrenal bleeding, therapeutic dose anti-coagulation is contra-indicated. Has IVC filter in place. hematology agreeable to prophylactic heparin hold off on full anticoagulation ASA for now Repeat CT af adranal in 3 weeks to ff S/P Acute hypoxic respiratory failure - resolved Extubated 01/15/17 Required intubation 01/05 for labored breathing due to bronchospasm. Extubated 01/13 but had to be reintubated CXR 01/23- stable Ileus- resolved- good po CT abd/pelvis 01/04 revealed right 3.6 x 2.4 cm and left 2.5 x 1.4 cm adrenal masses. Distal esophagus with thickening. Dilated stomach. Colonic Diverticuli. Compressed colon. Possible bowel obstruction. Dr. Saleh/general surgery consulted-medical management at this time. Small bowel follow-through done on 01/16 was unremarkable. MRI suggested bilateral adrenal hemorrhage - hypercoagulable workup in progress and being followed by hematology. Negative ultrasound gallbladder 01/02 clinically tolerating diet thus far Acute kidney injury- resolved Proteinuria IMPROVING. [facility] Patient states he needed kidney biopsy in past but refused Accurate I's and O's Monitor urine output ADH elevated, ACTH normal range encouraged po hydration, B/L adrenal hemorrhage- monitor See CT abdomen/pelvis Follow-up on adrenal insufficiency workup. ADH elevated, ACTH normal range off solucortef. on po prednisone 40mg po daily and continue to wean. Sliding-scale insulin with Accu-Cheks to maintain euglycemia/low regimen MRI Evolving changes in the adrenal glands with evidence of increasing edema and restricted diffusion. These changes are relate to bilateral adrenal hemorrhage previously described. reopeat adrenal imaging studies as OP in 3 weeks Leukocytosis- on steroids forCOPD Thrombocytosis Chronic Xarelto use Left lower extremity DVT Unable to anticoagulate for LE DVT due to adrenal hemorrhage s/p IR for IVC filter placement today 01/16/17 MTFHR gene mutation positive, phosphatidylserine antibody titer elevated, lupus anticoagulant test abnormal. Hematology to decide regarding resuming heparin for full anticoagulation. Doubt infectious etiology. ID Dr. Salinas reviewed chart and no abx, she has signed off UA negative. Procalcitonin normal 01/04 - blood cultures 2 - negative 01/04 - UA - negative 01/02 - blood cultures 2 - negative Hyponatremia - hypoosmolar- now hypernatremic, resolved Na 139 01/20/1701/04 Cortisol level equivocal TSH was 1.12. Uric acid 3.0. f/u Lipid panel 2% NaCl infusion-discontinued Right lower extremity wound being managed by wound care. Psychiatry evaluated the patient and he does not have capacity to make appropriate decisions, recommendations are for possible placement in a custodial facility. Pt seems to be more aware of his surrounding today, would like for psych to re-evaluate for capacity. I did discuss w CM and I have asked them to please reach out to family for assistance w d/c planning. Apparently [place]F [place] but apparently yesterday he was agreeable to go to a rehab here then go down to [facility]. PT also following pt and recommends PT at rehab - DVT proph - SCD/holding Xarelto in light adrenal hemorrhage. IVC filter . on subcutaneous heparin 5000 units every 8 hourly and toleration it well thus far. Discharge Planning continue to wean steroids monitor BP and adjust BP meds. monitor Cr. function anticipate d/c to SNF today if arranged Problem Qualifiers (1) Depression: (2) Leg wound, right: Qualified Code: S81.801D - Leg wound, right, subsequent encounter (3) Hypertension: Qualified Code: I10 - Essential hypertension Hansel Mackenzie MD January 25, 2017 07:51
[2017-01-25 08:00] VITALS: BP 130/75; PULSE 86; RESP 16; TEMP 97.7; O2SAT 97
[2017-01-25] MEDS: CHLORHEXIDINE 0.12% (ORAL KIT) 15 ML CUP MT SCH (08:00)
[2017-01-25 08:01] VITALS: PULSE 83
[2017-01-25] MEDS: SODIUM CHLORIDE 0.9% FLUSH 10 ML FLUSH IV FLUSH SCH (08:03)
[2017-01-25] MEDS: POLYETHYLENE GLYCOL 17 GM PKG PO SCH (08:04)
[2017-01-25] MEDS: buPROPion HCL 150 MG EXTENDED RELEASE TAB PO SCH (08:05)
[2017-01-25] MEDS: DOCUSATE SODIUM 100 MG CAP PO SCH (08:05)
[2017-01-25] MEDS: FOLIC ACID 1 MG TAB PO SCH (08:05)
[2017-01-25] MEDS: PANTOPRAZOLE SOD 40 MG DELAYED RELEASE TAB PO SCH (08:05)
[2017-01-25] MEDS: predniSONE 10 MG TAB PO SCH (08:06)
[2017-01-25] MEDS: METOPROLOL TARTRATE 25 MG TAB PO SCH (08:06)
[2017-01-25] MEDS: MULTIVITAMIN TAB PO SCH (08:06)
[2017-01-25] MEDS: THIAMINE HCL 100 MG TAB PO SCH (08:06)
[2017-01-25] MEDS: ASPIRIN EC 81 MG TABEC PO SCH (08:06)
[2017-01-25] MEDS: ARTIFICIAL TEARS OPTH SOLN 15 ML BTL EACH EYE SCH (08:06)
[2017-01-25] MEDS ORDERED: ASPI81TA11 PO (08:11)
[2017-01-25] MEDS ORDERED: METO25TA3 PO (08:11)
[2017-01-25] MEDS ORDERED: THERTAB15 PO (08:11)
[2017-01-25] MEDS ORDERED: HYDR50TA15 PO (08:11)
[2017-01-25] MEDS ORDERED: PANT40TA3 PO (08:11)
[2017-01-25] MEDS ORDERED: AMLO10 PO (08:11)
[2017-01-25] MEDS ORDERED: DOCU1CAP39 PO (08:11)
[2017-01-25] MEDS ORDERED: ALBU0.08 INH (08:11)
[2017-01-25] MEDS ORDERED: VITA100T2 PO (08:11)
[2017-01-25] MEDS ORDERED: PRED5TAB PO (08:15)
--- NOTE | 2017-01-25 08:20 | HHI.DS ---
Discharge Summary Admission Date Jan 04, 2017 at 11:37 Discharge Date: January 25, 2017 Admitting Diagnosis Small bowel obstruction, AMS, hyponatremia (1) Thrombocytosis ICD Code: D47.3 Diagnosis: Principal (2) Depression ICD Code: F32.9 Diagnosis: Principal (3) Anticoagulant long-term use ICD Code: Z79.01 Diagnosis: Principal (4) Leg wound, right ICD Code: S81.801A Diagnosis: Principal (5) Hypo-osmolality and hyponatremia ICD Code: E87.1 Diagnosis: Principal (6) Hyperglycemia ICD Code: R73.9 Diagnosis: Principal (7) Hypertension ICD Code: I10 Diagnosis: Principal (8) Abdominal pain ICD Code: R10.9 Diagnosis: Principal (9) DVT (deep venous thrombosis) ICD Code: I82.409 Diagnosis: Principal (10) Leukocytosis ICD Code: D72.829 Diagnosis: Principal (11) Distended abdomen ICD Code: R14.0 Diagnosis: Principal Procedures none Brief History - From Admission 76-year-old Male. Date of Admission 01/04/2017. 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 This Is 5 x 5 Cm. Covered in Blue Bandage. Patient Presents to [facility] after Being Discharged 01/02 with Altered Mental Status. 01/[address] abdomen pelvis which showed induration of the right kidney possibly past of possible pyelonephritis. UA was negative for infection. 2 cm cyst at the left kidney pole. Sigmoid diverticulosis. Degenerative disc disease lumbar spine. Patient did have a low-sodium 126 at that time.at that time, he was complaining of severe bilateral flank pain. Was associated after eating greasy food at [facility]. Associated with nausea and vomiting Saturday and Saturday prior to admission. He felt better the next morning was sent home on Levaquin. Day, patient was found confused and altered by his roommate this morning. Was transferred to [facility]. CT abdomen and pelvis revealed a right-sided 3.6 x 2.5 cm left 2.5 billable personality adrenal mass. Possible hemorrhage. Dilated esophagus with thickening, and dilated stomach, colon diverticula. Possible small bowel obstruction. NG tube was placed with 800cc brown gastric contents removed. /general surgery was consulted and has seen the patient for possible small bowel obstruction. Patient is room air, hypertensive requiring 40 mg labetalol. CBC/BMP: 01/22/17 0520 01/23/17 1633 Significant Findings Laboratory Tests Test 01/23/17 01/23/17 05:08 16:33 Total Iron Binding Capacity 151 MCG/DL (250-450) Percent Iron Saturation 76.1 % (20-50) Transferrin 108 MG/DL (200-360) Vitamin B12 Level 1434 PG/ML (193-986) Folate GREATER THAN 20.0 NG/ML (3.1-17.5) Blood Urea Nitrogen 33 MG/DL (7-18) Creatinine 1.39 MG/DL (0.60-1.30) Estimat Glomerular Filtration 50 ML/MIN (>89) Rate Random Glucose 229 MG/DL (74-106) Calcium Level 8.0 MG/DL (8.5-10.1) Imaging Last Impressions Chest X-Ray 01/23/17 1508 Signed Impressions: Service Date/Time: Monday, January 23, 2017 16:00 - CONCLUSION: 1. Small bilateral effusions with basilar atelectasis on the left. Flash Clinton MD Abdomen MRI 01/18/17 0000 Signed Impressions: Service Date/Time: Wednesday, January 18, 2017 10:36 - CONCLUSION: Evolving changes in the adrenal glands with evidence of increasing edema and restricted diffusion. These changes are relate to bilateral adrenal hemorrhage previously described. Significant potential for adrenal insufficiency should be considered. Distended gallbladder. No significant interval change. Matthew Aguirre MD Small Bowel X-Ray 01/16/17 0000 Signed Impressions: Service Date/Time: Monday, January 16, 2017 15:58 - CONCLUSION: Unremarkable small bowel examination. Dk Benedict MD IVC Filter Placement X-Ray 01/16/17 0000 Signed Impressions: Service Date/Time: Monday, January 16, 2017 10:36 - CONCLUSION: Uncomplicated inferior vena cava filter placement as above. Matthew Aguirre MD Lower Extremity Ultrasound 01/12/17 Signed Impressions: Service Date/Time: Thursday, January 12, 2017 12:08 - CONCLUSION: 1. Deep venous thrombosis which is nonocclusive in the superficial femoral and popliteal veins. 2. Superficial venous thrombosis in the greatest saphenous vein. Tyler Nagy MD Abdomen/Pelvis CT 01/11/17 0000 Signed Impressions: Service Date/Time: Wednesday, January 11, 2017 20:00 - CONCLUSION: 1. Subacute hemorrhage of both adrenal glands, not significantly changed on the left, smaller on the right. 2. Increased/new pleural fluid at both bases, new, small ascites, new body wall edema/anasarca. 3. No evidence of bowel obstruction. Nasogastric tube coiled in the stomach. 4. Patchy airspace consolidation of the right lung base, new. Santos Arce MD Head Magnetic Resonance Angiography 01/05/17 Signed Impressions: Service Date/Time: Thursday, January 05, 2017 14:37 - CONCLUSION: Normal examination. Esperanza Odell MD Head CT 01/04/17 0848 Signed Impressions: Service Date/Time: Wednesday, January 04, 2017 08:58 - CONCLUSION: Unremarkable examination for each. Tyler Nagy MD Neck CT 01/04/17 0000 Signed Impressions: Service Date/Time: Wednesday, January 04, 2017 20:49 - CONCLUSION: Questionable thickening of the vocal cords. These can be directly inspected. Otherwise the study appears grossly normal for a noncontrast CT of the neck. Santos Whitley MD Chest CT 01/04/17 0000 Signed Impressions: Service Date/Time: Wednesday, January 04, 2017 20:50 - CONCLUSION: 1. Mild bilateral pleural effusions with suspected accompanying areas of atelectasis or consolidation at the lung bases. 2. Coronary artery calcifications. Santos Whitley MD Brain MRI 01/04/17 0000 Signed Impressions: Service Date/Time: Wednesday, January 04, 2017 21:19 - CONCLUSION: Atrophy and mild chronic white matter changes. No acute infarct or other acute intracranial abnormality. Santos Arce MD PE at Discharge awake and alert, oriented to person and apace and year ff all commands anicteric lungs decreased breath sounds, bases, no rales or wheezes regular rhythm abdomen soft, nontender samaniego in place extremities- moves all equally Pt update on day of discharge no complains except for the food- po 100%, no dysphagia, no flank pain Hospital Course 76 years old male Acute toxic metabolic encephalopathy-resolving History of EtOH Depression/anxiety CT head 01/04 reveals no acute intracranial abnormalities on bupropion 150 mg by mouth daily, continue to hold narcotics. po Thiamine/folate/multivitamin daily with EtOH use. MRI/A brain 01/05- normal exam Right lower extremity DVT S/p IVC fileter Hypertension- better readings Lopressor 100 mg BID, amlodipine, Hydralazine 01/05 right lower extremity Dopplers ultrasound for DVT-partially occlusive thrombus right SFA, popliteal and peroneal veins Status post IVC filter placement on 01/16 Hematology following. Pt has b/l adrenal hemorrhage and DVT with positive lupus anti-coagulant. However due to high risk of adrenal bleeding, therapeutic dose anti-coagulation is contra-indicated. Has IVC filter in place. hematology agreeable to prophylactic heparin hold off on full anticoagulation-heparin 8000 units SQ q8 ASA for now Repeat CT of adrenal in 3 weeks for ff up S/P Acute hypoxic respiratory failure - resolved Extubated 01/15/17 Required intubation 01/05 for labored breathing due to bronchospasm. Extubated 01/13 but had to be reintubated CXR 01/23- stable Ileus- resolved- good po CT abd/pelvis 01/04 revealed right 3.6 x 2.4 cm and left 2.5 x 1.4 cm adrenal masses. Distal esophagus with thickening. Dilated stomach. Colonic Diverticuli. Compressed colon. Possible bowel obstruction. Dr. Saleh/general surgery consulted-medical management at this time. Small bowel follow-through done on 01/16 was unremarkable. MRI suggested bilateral adrenal hemorrhage - hypercoagulable workup in progress and being followed by hematology. Negative ultrasound gallbladder 01/02 clinically tolerating diet thus far Acute kidney injury- resolved Proteinuria IMPROVING. Ff BMP Patient states he needed kidney biopsy in past but refused Accurate I's and O's Monitor urine output ADH elevated, ACTH normal range encouraged po hydration, B/L adrenal hemorrhage- monitor See CT abdomen/pelvis Follow-up on adrenal insufficiency workup. ADH elevated, ACTH normal range off solucortef. on po prednisone 40mg po daily and continue to wean. Sliding-scale insulin with Accu-Cheks to maintain euglycemia/low regimen MRI Evolving changes in the adrenal glands with evidence of increasing edema and restricted diffusion. These changes are relate to bilateral adrenal hemorrhage previously described. reopeat adrenal imaging studies as OP in 3 weeks Leukocytosis- on steroids forCOPD Thrombocytosis Chronic Xarelto use Left lower extremity DVT Unable to anticoagulate for LE DVT due to adrenal hemorrhage s/p IR for IVC filter placement today 01/16/17 MTFHR gene mutation positive, phosphatidylserine antibody titer elevated, lupus anticoagulant test abnormal. Hematology to decide regarding resuming heparin for full anticoagulation. Doubt infectious etiology. ID Dr. Salinas reviewed chart and no abx, she has signed off UA negative. Procalcitonin normal 01/04 - blood cultures 2 - negative 01/04 - UA - negative 01/02 - blood cultures 2 - negative Hyponatremia - hypoosmolar- now hypernatremic, resolved Na 139 01/20/1701/04 Cortisol level equivocal TSH was 1.12. Uric acid 3.0. f/u Lipid panel 2% NaCl infusion-discontinued Right lower extremity wound being managed by wound care. Psychiatry evaluated the patient and he does not have capacity to make appropriate decisions, recommendations are for possible placement in a group home facility. Pt seems to be more aware of his surrounding today, would like for psych to re-evaluate for capacity. I did discuss w CM and I have asked them to please reach out to family for assistance w d/c planning. Apparently pt wants to go to a SNF [facility] but apparently yesterday he was agreeable to go to a rehab here then go down to [facility]. PT also following pt and recommends PT at rehab - DVT proph - SCD/holding Xarelto in light adrenal hemorrhage. IVC filter 01/16/17. on subcutaneous heparin 5000 units every 8 hourly and toleration it well thus far. Pt Condition on Discharge: Stable Discharge Disposition: Discharge to SNF Discharge Time: <= 30 minutes Discharge Instructions DIET: Follow Instructions for: Heart Healthy Diet Speech Therapy-Diet Recommends: Regular Activities you can perform: Weight Bearing as Rocky Activities to Avoid: Strenuous Activity Follow up Referrals: Gastroenterology - 2 Weeks @ [facility] - 1 Week with Anatoliy CARRENO New Orders: CBC NO DIFF - 01/29/17 New Medications: Prednisone (Prednisone) 5 Mg Tab 5 MG PO DAILY 6 tabs daily x 2 days, 4 tabs daily x 3 days, 2 tabs daily x 3 days, 5 mg daily x 5 days. S/padrenhemo #25 Ref 0 TAB Albuterol Neb (Albuterol Neb) 2.5 Mg/3 Ml Neb 2.5 MG INH Q8HR PRN CONSTIPATION Days 5 NEBULE Amlodipine (Norvasc) 10 Mg Tab 10 MG PO DAILY HTN Days [address] (Aspirin EC) 81 Mg Tabdr 81 MG PO DAILY DVT Days 30 TAB Docusate Sodium (Dok) 100 Mg Cap 100 MG PO BID onstipation #20 CAP Hydralazine (Hydralazine) 50 Mg Tab 50 MG PO Q8HR HTN Days 30 TAB Metoprolol Tartrate (Metoprolol Tartrate) 25 Mg Tab 100 MG PO Q12HR HTN Days 30 TAB Multiple Vitamin (Thera/Beta-Carotene) 1 Tab Tab 1 TAB PO DAILY SUPP Days 30 TAB Pantoprazole (Pantoprazole) 40 Mg Tab 40 MG PO DAILY GI/ESOphitis Days 30 TAB Thiamine (Vitamin B-1) 100 Mg Tab 100 MG PO DAILY SUPPL Days 30 TAB Hansel Mackenzie MD January 25, 2017 08:20
[2017-01-25] MEDS ORDERED: HEPA10003 SQ (08:24)
[2017-01-25 08:54] VITALS: O2SAT 97
[2017-01-26] MEDS ORDERED: buPROPion HCL 150 MG SUSTAINED RELEASE TAB PO SCH (09:00)
--- NOTE | 2017-01-30 11:05 | PQ ---
Physician Query Response Document PATIENT: MARIELY DE LA CRUZ : 1940 ADMIT DATE: 01/04/2017 11:37 AM DISCH DATE: 01/25/2017 12:44 PM RESPONDING PROVIDER #: Juwan QUERY TEXT: Sepsis Query Based on your medical judgement, can you further clarify the folowiing: - Sepsis was present on Admission - Sepsis developed after admission The patient's Clinical Indicators include: on admission T 98.6 WBC 23.3 W DISTENDED ABDOMEN AND AMS Receive 1 dose Rocephin in ED. 01/04 20:00 T 100.5 RR 35 HR 106 dx LIKELY intra- abdominal: small bowel obstruction vs ileus hx 3 days of on going abdominal pain; b/l adrenal hemorrhages not present on CT [address] s howed obstruction NG PLACED FOR 800 CC brown gastric contents removed. Required intubation 01/05 for labored breathing due to bronchospasm. ID CONSULTED SEPSIS per ID He is in sepsis, septic shock, intuubated, on [facility] vent and pressors Query created by: Gayathri Allen on 01/25/2017 10:35 AM RESPONSE TEXT: Reviewed notes - no sepsis- no antibviotics needed. Electronically signed by: Hansel Mackenzie MD 01/30/2017 11:00 AM
== END 2017-01-25 12:44 | DRG 628 ==
LOC: PHED 08:21 → PHEDA 11:37 → N03B 17:05 → HOCA 01-17 15:48 → HOCB 01-18 19:48
PROVIDERS: ADMIT Internal Medicine Critical Care Medicine; ATTEND Internal Medicine
PROC: 0BH17EZ Insertion of Endotracheal Airway into Trachea, Via Natural or Artificial Opening (ICD-10-PCS; principal; 2017-01-05)
PROC: 03HY32Z Insertion of Monitoring Device into Upper Artery, Percutaneous Approach (ICD-10-PCS; 2017-01-05)
PROC: 5A1955Z Respiratory Ventilation, Greater than 96 Consecutive Hours (ICD-10-PCS; 2017-01-05)
PROC: 02HV33Z Insertion of Infusion Device into Superior Vena Cava, Percutaneous Approach (ICD-10-PCS; 2017-01-05)
PROC: 06H03DZ Insertion of Intraluminal Device into Inferior Vena Cava, Percutaneous Approach (ICD-10-PCS; 2017-01-16)
PROC: 0BH17EZ Insertion of Endotracheal Airway into Trachea, Via Natural or Artificial Opening (ICD-10-PCS; 2017-01-16)
PROC: 5A1935Z Respiratory Ventilation, Less than 24 Consecutive Hours (ICD-10-PCS; 2017-01-16)
DX: E87.1 Hypo-osmolality and hyponatremia (principal); G92 Toxic encephalopathy; J96.01 Acute respiratory failure with hypoxia; N17.9 Acute kidney failure, unspecified; J90 Pleural effusion, not elsewhere classified; I82.411 Acute embolism and thrombosis of right femoral vein; K56.7 Ileus, unspecified; I82.431 Acute embolism and thrombosis of right popliteal vein; E27.49 Other adrenocortical insufficiency; I82.491 Acute embolism and thrombosis of other specified deep vein of right lower extremity; D68.312 Antiphospholipid antibody with hemorrhagic disorder; F05 Delirium due to known physiological condition; L97.319 Non-pressure chronic ulcer of right ankle with unspecified severity; I10 Essential (primary) hypertension; J98.01 Acute bronchospasm; F32.9 Major depressive disorder, single episode, unspecified; F41.9 Anxiety disorder, unspecified; K57.30 Diverticulosis of large intestine without perforation or abscess without bleeding; R80.9 Proteinuria, unspecified; E87.0 Hyperosmolality and hypernatremia; E87.70 Fluid overload, unspecified; I48.91 Unspecified atrial fibrillation; K22.8 Other specified diseases of esophagus; K59.00 Constipation, unspecified; R60.1 Generalized edema; Z79.02 Long term (current) use of antithrombotics/antiplatelets; Z86.718 Personal history of other venous thrombosis and embolism; D47.3 Essential (hemorrhagic) thrombocythemia; R73.9 Hyperglycemia, unspecified
CPT/HCPCS: 31500; 36556; 36600; 36620; 37191; 51702; 70450; 70490; 70544; 70551; 71010; 71250; 74176; 74177; 74181; 74250; 76705; 76937; 80048; 80053; 80202; 80307; 81001; 81240; 81241; 81291; 82024; 82088; 82140; 82533; 82550; 82552; 82607; 82746; 82805; 82948; 83090; 83540; 83550; 83605; 83690; 83735; 83880; 83930; 83935; 84100; 84132; 84145; 84244; 84295; 84300; 84443; 84466; 84484; 84550; 84588; 85007; 85025; 85027; 85240; 85300; 85303; 85306; 85307; 85597; 85598; 85610; 85613; 85670; 85730; 86146; 86147; 86148; 87040; 87070; 87205; 87449; 87493; 87641; 87804; 93005; 93970; 93971; 94002; 94003; 94150; 94640; 94664; 96361; 96365; 96374; 96375; 96376; 99152; C1769; C1880; C9113; G0378; G8987-GP; G8988-GP; J0131; J0171; J0282; J0360; J0461; J0690; J0692; J0696; J0834; J1644; J1720; J1940; J2060; J2250; J2270; J2370; J2405; J2543; J2765; J3010; J3370; J3411; J3475; J3480; J7030; J7040; J7050; J7060; J7512; J7613; P9047; Q9963; Q9967

== ENCOUNTER 2017-02-14 11:47 | Inpatient (IN) | payer MEDICARE ==
[~2017-02-14] VITALS: Ht 177.8 cm; Wt 84.6 kg
[2017-02-14] VITALS (16 sets, daily range): BP systolic 90–208; BP diastolic 52–108; PULSE 92–120; RESP 18–28; TEMP 97.8–101.1; O2SAT 0–100
[~2017-02-14 11:47] MED LIST changes: +ALBU0.08 INH; +AMLO10 PO; +ASPI81TA11 PO; -BP pill PO; +BUPR150T3 PO; +DOCU1CAP39 PO; +EPINEPHrine HCL (1:10,000) 1 MG/10 ML SYRINGE IV ONE; +HEPA10003 SQ; +HYDR50TA15 PO; +LOSA25TA PO; +METO25TA3 PO; +PANT40TA3 PO; +PERC5TAB12 PO; +PRED5TAB PO; +REGL10TA5 PO; +SODIUM BICARBONATE 8.4% INJ 50 MEQ/50 ML SYR IV ONE; +THERTAB15 PO; +TRAM50TA PO; +VITA100T2 PO
[2017-02-14] MEDS ORDERED: SODIUM CHLORIDE 0.9% FLUSH 5 ML FLUSH IV FLUSH PRN (12:00)
[2017-02-14] MEDS ORDERED: SODIUM CHLOR 0.9% 1000 ML INJ 1,000 ML IV ONE ×2 (12:00→12:52)
[2017-02-14] MEDS ORDERED: GLUCAGON 1 MG/ML VIAL IV PUSH ONE (12:00)
--- NOTE | 2017-02-14 12:05 | PD ---
HPI Chief Complaint: Altered Mental Status Time Seen by Provider: 11:51 Travel History International Travel<30 days: No Contact w/Intl Traveler<30days: No Traveled to known affect area: No History of Present Illness HPI SENT FROM DR MCELROY OFFICE WITH CONFUSION, ACCUCHECK ON ARRIVAL 117, MILDLY HYPOTENSIVE SBP 98 PFSH Past Medical History Hx Anticoagulant Therapy: Yes (XARELTO) Autoimmune Disease: No Anxiety: No (JO-ANN) Heart Rhythm Problems: No Cancer: No Cardiovascular Problems: Yes High Cholesterol: No Chest Pain: No Congestive Heart Failure: No Deep Vein Thrombosis: Yes Endocrine: No Genitourinary: No Hypertension: Yes Immune Disorder: No Kidney Stones: No (JO-ANN) Musculoskeletal: No Neurologic: No Psychiatric: No Reproductive: No Respiratory: Yes Sickle Cell Disease: No Past Surgical History Abdominal Surgery: No AICD: No Arteriovenous Shunt: No Cardiac Surgery: No Ear Surgery: No Endocrine Surgery: No Eye Surgery: No Genitourinary Surgery: No Gynecologic Surgery: No Insulin Pump: No Joint Replacement: No Oral Surgery: No Pacemaker: No Thoracic Surgery: No Other Surgery: Yes (Vein RLE, vasectomy, hernia) Social History Alcohol Use: Yes ("Shots couple times a week" ) Tobacco Use: No Substance Use: No Allergies-Medications (Allergen,Severity, Reaction): Coded Allergies: No Known Allergies (Unverified , 02/14/17) Reported Meds & Prescriptions Reported Meds & Active Scripts Active Thera/Beta-Carotene (Multiple Vitamin) 1 Tab Tab 1 Tab PO DAILY 30 Days Dok (Docusate Sodium) 100 Mg Cap 100 Mg PO BID Aspirin EC (Aspirin) 81 Mg Tabdr 81 Mg PO DAILY 30 Days Norvasc (Amlodipine Besylate) 10 Mg Tab 10 Mg PO DAILY 30 Days Albuterol Neb (Albuterol Sulfate) 2.5 Mg/3 Ml Neb 2.5 Mg INH Q8HR PRN 5 Days Reported Vitamin C ER (Ascorbic Acid) 500 Mg Isabel 500 Mg PO Vitamin B-1 (Thiamine HCl) 100 Mg Tab 100 Mg PO DAILY Fleet Oil Enema (Mineral Oil) 118 Ml Enem 1 Ea RECTAL DIRECTED PRN Milk of Magnesia Liq (Magnesium Hydroxide) 400 Mg/5 Ml Susp 30 Ml PO DAILY PRN Zofran Odt (Ondansetron Odt) 4 Mg Tab 4 Mg SL Q6HR PRN Tylenol (Acetaminophen) 325 Mg Tab 650 Mg PO Q6H PRN Sulfamethoxazole-Trimethoprim 800-160 Mg Tab 1 Tab PO BID Culturelle (Lactobacillus Rhamnosus (GG)) 10 B Cell Cap 1 Cap PO DAILY Doxycycline Hyclate 100 Mg Cap 100 Mg PO DAILY Metoprolol Tartrate 50 Mg Tab 50 Mg PO BID Review of Systems ROS Limitations: Altered Mental Status Except as stated in HPI: all other systems reviewed are Neg Physical Exam Exam Limitations: Altered Mental Status Narrative GENERAL: SKIN: Warm and dry, PALE SKIN HEAD: Atraumatic. Normocephalic. EYES: Pupils equal and round. No scleral icterus. No injection or drainage. PALE CONJUNCTIVA ENT: No nasal bleeding or discharge. Mucous membranes pink and moist. NECK: Trachea midline. No JVD. CARDIOVASCULAR: Regular rate and rhythm. RESPIRATORY: No accessory muscle use. Clear to auscultation. Breath sounds equal bilaterally. GASTROINTESTINAL: Abdomen soft, non-tender, nondistended. Hepatic and splenic margins not palpable. MUSCULOSKELETAL: Extremities without clubbing, cyanosis, or edema. No obvious deformities. MOVES ALL 4 EXTREMITIES WELL NEUROLOGICAL: Awake, CONFUSED, WANING AND WAXING EPISODES OF CONFUSION PSYCHIATRIC: DIFFICULT TO ASSES DUE TO CONFUSED STATE Data Data Last Documented VS Vital Signs Date Time Temp Pulse Resp B/P Pulse Ox O2 Delivery O2 Flow Rate FiO2 02/14/17 14:03 112 168/58 100 Ventilator 02/14/17 13:53 18 3 02/14/17 13:45 100 02/14/17 11:49 97.8 Orders Electrocardiogram (02/14/17 11:52) Ammonia (02/14/17 11:52) Complete Blood Count With Diff (02/14/17 11:52) Comprehensive Metabolic Panel (02/14/17 11:52) Prothrombin Time / Inr (Pt) (02/14/17 11:52) Act Partial Throm Time (Ptt) (02/14/17 11:52) Troponin I (02/14/17 11:52) Thyroid Stimulating Hormone (02/14/17 11:52) Urinalysis - C+S If Indicated (02/14/17 11:52) Lactic Acid Sepsis Protocol (02/14/17 11:52) Arterial Blood Gas (Abg) (02/14/17 11:52) Blood Culture (02/14/17 11:52) Chest, Single Ap (02/14/17 11:52) Ct Brain W/O Iv Contrast(Rout) (02/14/17 11:52) Blood Glucose (02/14/17 11:52) Ecg Monitoring (02/14/17 11:52) Iv Access Insert/Monitor (02/14/17 11:52) Oximetry (02/14/17 11:52) Sodium Chloride 0.9% Flush (Ns Flush) (02/14/17 12:00) Sodium Chlor 0.9% 1000 Ml Inj (Ns 1000 M (02/14/17 12:00) Glucagon Inj (Glucagon Inj) (02/14/17 12:00) Vancomycin Inj (Vancomycin Inj) (02/14/17 12:52) Piperacil-Tazo 4.5 Gm Premix (Zosyn 4.5 (02/14/17 12:52) Sodium Chlor 0.9% 1000 Ml Inj (Ns 1000 M (02/14/17 12:52) Sodium Chlor 0.9% 1000 Ml Inj (Ns 1000 M (02/14/17 12:52) Ct Abd/Pel W/O Iv Contrast (02/14/17 ) Epinephrine (1:10,000) Inj (Epinephrine (02/14/17 13:32) Atropine Inj (Atropine Inj) (02/14/17 13:32) Ng Gastric Tube Insert/Monitor (02/14/17 13:41) Sodium Bicarbonate 8.4% Inj (Sodium Bica (02/14/17 13:45) Sodium Bicarbonate 8.4% Inj (Sodium Bica (02/14/17 13:45) Type And Screen (02/14/17 13:42) Red Blood Cells (Rbc) (02/14/17 13:42) Blood Product Administration .UPON TRANSFUSION (02/14/17 13:42) Sodium Chlor 0.9% 250 Ml Inj (Ns 250 Ml (02/14/17 13:45) Calcium Gluconate Inj (Calcium Gluconate (02/14/17 14:15) Insulin Human Regular Inj (Novolin R Inj (02/14/17 14:30) Dextrose 50% In [place] (Vial) Inj (D50w (Vi (02/14/17 14:15) Sodium Bicarbonate 8.4% Inj (Sodium Bica (02/14/17 14:15) Albuterol Concentrated Neb (Albuterol Co (02/14/17 14:15) Dextrose 5% In Wate... W/Sodium Bicarbon (02/14/17 16:00) Blood Gas Venous (Vbg) (02/14/17 14:10) Admit Order (Ed Use Only) (02/14/17 14:20) Labs Laboratory Tests Test 02/14/17 02/14/17 02/14/17 02/14/17 12:00 12:08 12:14 13:10 White Blood Count 17.7 TH/MM3 Red Blood Count 2.53 MIL/MM3 Hemoglobin 7.7 GM/DL Hematocrit 22.4 % Mean Corpuscular Volume 88.8 FL Mean Corpuscular Hemoglobin 30.5 PG Mean Corpuscular Hemoglobin 34.3 % Concent Red Cell Distribution Width 16.9 % Platelet Count 391 TH/MM3 Mean Platelet Volume 8.6 FL Neutrophils (%) (Auto) 59.9 % Lymphocytes (%) (Auto) 26.8 % Monocytes (%) (Auto) 11.0 % Eosinophils (%) (Auto) 1.5 % Basophils (%) (Auto) 0.8 % Neutrophils # (Auto) 10.6 TH/MM3 Lymphocytes # (Auto) 4.7 TH/MM3 Monocytes # (Auto) 1.9 TH/MM3 Eosinophils # (Auto) 0.3 TH/MM3 Basophils # (Auto) 0.1 TH/MM3 CBC Comment DIFF FINAL Differential Comment Prothrombin Time 14.0 SEC Prothromb Time International 1.3 RATIO Ratio Activated Partial 36.8 SEC Thromboplast Time Sodium Level 115 MEQ/L Potassium Level 6.2 MEQ/L Chloride Level 81 MEQ/L Carbon Dioxide Level 15.8 MEQ/L Anion Gap 18 MEQ/L Blood Urea Nitrogen 50 MG/DL Creatinine 3.83 MG/DL Estimat Glomerular Filtration 15 ML/MIN Rate Random Glucose 86 MG/DL Calcium Level 9.6 MG/DL Total Bilirubin 0.9 MG/DL Aspartate Amino Transf 82 U/L (AST/SGOT) Alanine Aminotransferase 79 U/L (ALT/SGPT) Alkaline Phosphatase 266 U/L Troponin I LESS THAN 0.02 NG/ML Total Protein 7.4 GM/DL Albumin 2.9 GM/DL Thyroid Stimulating Hormone 8.090 uIU/ML 3rd Gen Blood Gas Puncture Site LT BRACHIAL Blood Gas Patient Temperature 98.6 Blood Gas HCO3 16 mmol/L Blood Gas Base Excess -8.1 mmol/L Blood Gas Oxygen Saturation 97 % Arterial Blood pH 7.37 Arterial Blood Partial 29 mmHg Pressure CO2 Arterial Blood Partial 127 mmHG Pressure O2 Arterial Blood Oxygen Content 11.0 Vol % Arterial Blood 1.7 % Carboxyhemoglobin Arterial Blood Methemoglobin 0.4 % Blood Gas Hemoglobin 7.9 G/DL Oxygen Delivery Device NASAL CANNULA Blood Gas Inspired Oxygen 4 % Lactic Acid Level 6.2 mmol/L Ammonia 20 MCMOL/L Urine Color YELLOW Urine Turbidity CLEAR Urine pH 5.5 Urine Specific [place] 1.013 Urine Protein 30 mg/dL Urine Glucose (UA) NEG mg/dL Urine Ketones NEG mg/dL Urine Occult Blood NEG Urine Nitrite NEG Urine Bilirubin NEG Urine Urobilinogen LESS THAN 2.0 MG/DL Urine Leukocyte Esterase NEG Urine RBC LESS THAN 1 /hpf Urine WBC 1 /hpf Urine Hyaline Casts 1 /lpf Urine Mucus FEW /lpf Microscopic Urinalysis Comment CATH-CULT NOT IND Test 02/14/17 14:10 Blood Gas Puncture Site LT RADIAL Blood Gas Patient Temperature 98.6 Venous Blood pH 7.07 Venous Blood Partial Pressure 66 mmHg CO2 Venous Blood Partial Pressure 32 mmHg O2 Venous Blood HCO3 18 mmol/L Venous Blood Oxygen Saturation 32 % Venous Blood Oxygen Content 3.0 Vol % Venous Blood Base Excess -10.3 mmol/L Oxygen Delivery Device VENT Blood Gas Ventilator Setting MDM Medical Decision Making Medical Screen Exam Complete: Yes Emergency Medical Condition: Yes Medical Record Reviewed: Yes Differential Diagnosis GENERALIZED CONFUSION EVAL : ELECTROLYTE ABNL, ICH, INFECTIOUS CAUSE ETC Narrative Course PATIENT PRESENTED CONFUSED AND HYPOTENSIVE RESPONSIVE TO 1L IVF, AMS DUE TO HYPONATREMIA. PATIENT ALSO FOUND TO BE IN SEVERE SEPSIS BASED ON LACTIC ACID 6.2 AND LEUKOCYTOSIS BUT WIHTOUT OBVIOUS SOURCE, SO ZOSYN AND VANCO GIVEN SINGLE DOSE. SECOND LITER OF IVF PER SEPSIS PROTOCOL STARTED BUT NOT GIVEN BOLUS DUE TO RENAL FAILURE AND TO AVOID CPM BY OVERCORRECTING HYPONATREMIA. POST INTUBATION AND CODE WHICH I BELIEVE WAS DUE TO SYMPTOMATIC HYPERKALEMIA, RESPONDED TO BICARB, GIVEN CALCIUM, ALBUTEROL, INSULIN AND D50 ALONG WITH OG TUBE PLACEMENT. PATIENT TAKEN TO CT ABD TO FURTHER EVAL...CASE D/W TRADE MARK ATTORNEY AND BED ASSIGNED IN ICU Critical Care Narrative CRITICAL CARE NOTE: With evaluation of the patient, labs, EKG, receipt of radiologic studies, administration of medications, reevaluation the patient and discussion of the patient with the admitting physicians, the total critical care time was [60] minutes. Time to perform other separately billable procedures was not included in the critical care time. Procedures Procedure Narrative The patient was put in optimal position for the procedure. Rapid sequence intubation was initiated by me using [0] milligrams of etomidate IV and [0] milligrams of [ANY PARALYTIC] IV. The patient was intubated with a [8-0] cuffed endotracheal tube. Tube placement was confirmed by visualization of the tube and balloon passing through the cords, capnometry and subsequent chest x- ray. Breath sounds were equal and well aerated bilaterally postintubation. No breath sounds over stomach. Patient tolerated procedure well. Diagnosis Primary Impression: SEVERE SEPSIS (UNKNOWN SOURCE) Additional Impressions: AMS DUE TO SEPSIS AND HYPONATREMIA Acute hyperkalemia Admitting Information Admitting Physician Requests: Admit Chicho Spence MD Feb 14, 2017 12:05
[2017-02-14 12:10] LABS: AUTOMATED NEUTROPHIL # 10.6 TH/MM3 (1.8-7.7); BASOPHIL # 0.1 TH/MM3 (0-0.2); BASOPHIL % 0.8 % (0.0-2.0); EOSINOPHIL # 0.3 TH/MM3 (0-0.4); EOSINOPHIL % 1.5 % (0.0-4.0); HEMATOCRIT 22.4 % (39.0-51.0); HEMO FLAGS DIFF FINAL; LYMPH % 26.8 % (9.0-44.0); LYMPHOCYTE # 4.7 TH/MM3 (1.0-4.8); MEAN CELL VOLUME 88.8 FL (80.0-100.0); MEAN CORPUSCULAR HEMOGLOBIN 30.5 PG (27.0-34.0); MEAN CORPUSCULAR HGB CONC 34.3 % (32.0-36.0); NEUT % 59.9 % (16.0-70.0); PLATELET COUNT 391 TH/MM3 (150-450); RED BLOOD COUNT 2.53 MIL/MM3 (4.50-5.90); RED CELL DISTRIBUTION WIDTH 16.9 % (11.6-17.2); WHITE BLOOD COUNT 17.7 TH/MM3 (4.0-11.0)
[2017-02-14 12:14] LABS: BLOOD GAS BASE EXCESS -8.1 mmol/L (-2-2); BLOOD GAS CARBOXYHEMOGLOBIN 1.7 % (0-4); BLOOD GAS HCO3 16 mmol/L (22-26); BLOOD GAS METHEMOGLOBIN 0.4 % (0-2); BLOOD GAS O2 HGB SATURATION 97 % (90-100); BLOOD GAS PCO2 29 mmHg (38-42); BLOOD GAS PO2 127 mmHG (61-120); BLOOD GAS TOTAL HGB 7.9 G/DL (12.0-16.0); TEMP CORR TO 98.6
[2017-02-14 12:15] LABS: CRITICAL VALUE YES; DRAW SITE LT BRACHIAL; FIO2 4 %; NUMBER OF ARTERIAL PUNCTURES 2; OXYGEN DEVICE NASAL CANNULA; STAT YES
[2017-02-14 12:19] LABS: APTT (PATIENT) 36.8 SEC (24.3-30.1); INTERNATIONAL NORMALIZED RATIO 1.3 RATIO
[2017-02-14 12:45] LABS: ALKALINE PHOSPHATASE 266 U/L (45-117); ALT (GPT) 79 U/L (12-78); ANION GAP 18 MEQ/L (5-15); AST (GOT) 82 U/L (15-37); BICARBONATE 15.8 MEQ/L (21.0-32.0); BLOOD UREA NITROGEN 50 MG/DL (7-18); CHLORIDE 81 MEQ/L (98-107); GLOMERULAR FILTRATION RATE 15 ML/MIN (>89); TOTAL BILIRUBIN ADULT 0.9 MG/DL (0.2-1.0)
[2017-02-14 12:47] LABS: POTASSIUM 6.2 MEQ/L (3.5-5.1)
[2017-02-14 12:49] LABS: SODIUM (NA) 115 MEQ/L (136-145)
[2017-02-14] MEDS ORDERED: VANCOMYCIN INJ 1,000 MG in SODIUM CHLOR 0.9% 250 ML INJ 250 ML IV STA (12:52)
[2017-02-14] MEDS ORDERED: SODIUM CHLOR 0.9% 1000 ML INJ 800 ML IV ONE (12:52)
[2017-02-14] MEDS ORDERED: PIPERACIL-TAZO 4.5 GM PREMIX 100 ML IV STA (12:52)
--- NOTE | 2017-02-14 13:19 | RADRPT ---
EXAM DATE/TIME: 02/14/2017 12:22 [facility] COMPARISON: CT ABDOMEN & PELVIS W/O CONTRAST, January 11, 2017, 20:00. INDICATIONS : Altered mental status, slurred sppech. RADIATION DOSE: 58.47 CTDIvol (mGy) MEDICAL HISTORY : Hypertension. Deep venous thrombosis. Chronic obstructive pulmonary disease. SURGICAL HISTORY : None. ENCOUNTER: Initial ACUITY: 1 day PAIN SCALE: Non-responsive LOCATION: cranial TECHNIQUE: Multiple contiguous axial images were obtained of the head. Using automated exposure control and adj ustment of the mA and/or kV according to patient size, radiation dose was kept as low as reasonably a chievable to obtain optimal diagnostic quality images. FINDINGS: CEREBRUM: The ventricles are normal for age. No evidence of midline shift, mass lesion, hemorrhage or acute in farction. No extra-axial fluid collections are seen. POSTERIOR FOSSA: The cerebellum and brainstem are intact. The 4th ventricle is midline. The cerebellopontine angle i s unremarkable. EXTRACRANIAL: The visualized portion of the orbits is intact. SKULL: The calvaria is intact. No evidence of skull fracture. CONCLUSION: 1. No acute intracranial abnormality. Flash Clinton MD on February 14, 2017 at 13:15 Board Certified Radiologist. This report was verified electronically.
[2017-02-14] MEDS ORDERED: MILKSUS PO (13:26)
[2017-02-14] MEDS ORDERED: DOXY100C PO (13:26)
[2017-02-14] MEDS ORDERED: CULT10CA4 PO (13:26)
[2017-02-14] MEDS ORDERED: TYLE325T PO (13:26)
[2017-02-14] MEDS ORDERED: ZOFR4TAB3 SL (13:26)
[2017-02-14] MEDS ORDERED: VITA500T83 PO (13:26)
[2017-02-14] MEDS ORDERED: METO50TA PO (13:26)
[2017-02-14] MEDS ORDERED: VITA100T54 PO (13:26)
[2017-02-14] MEDS ORDERED: SULF1TAB23 PO (13:26)
[2017-02-14] MEDS ORDERED: MINER RECTAL (13:26)
--- NOTE | 2017-02-14 13:27 | RADRPT ---
EXAM DATE/TIME: 02/14/2017 12:38 [facility] COMPARISON: CT THORAX W/O CONTRAST, January 04, 2017, 20:50. CHEST SINGLE AP, January 05, 2017, 1:01. CHEST SINGLE AP, January 23, 2017, 16:00. INDICATIONS : Possible syncopal episode; possible stroke alert. MEDICAL HISTORY : Hypertension. Chronic obstructive pulmonary disease. Emphysema. Renal disease. Diabetes. Liver di sease. SURGICAL HISTORY : Nephrectomy. ENCOUNTER: Initial ACUITY: 1 day PAIN SCORE: Non-responsive. LOCATION: Bilateral chest FINDINGS: A single view of the chest demonstrates the lungs to be symmetrically aerated without evidence of mas s, infiltrate or effusion. The cardiomediastinal contours are unremarkable. Osseous structures are intact. CONCLUSION: No acute disease. Hamlet Taylor Jr., MD on February 14, 2017 at 13:23 Board Certified Radiologist. This report was verified electronically.
[2017-02-14 13:28] LABS: BLOOD, URINE NEG (NEG); COMMENT (UR) CATH-CULT NOT IND; CULTURE IF INDICATED CATH CULTURE NOT IND; GLUCOSE,URINE NEG (NEG); HYALINE CAST, URINE 1 /lpf (RARE); KETONE, URINE NEG (NEG); MUCUS URINE FEW /lpf (OCC); NITRITE,URINE NEG (NEG); PH, URINE 5.5 (5.0-8.5); URINE COLOR YELLOW (YELLW/STRAW)
[2017-02-14] MEDS ORDERED: ATROPINE SULFATE 1 MG/10 ML SYRINGE ONE (13:32)
[2017-02-14] MEDS ORDERED: EPINEPHrine HCL (1:10,000) 1 MG/10 ML SYRINGE ONE (13:32)
[2017-02-14] MEDS ORDERED: SODIUM BICARBONATE 8.4% INJ 50 MEQ/50 ML SYR IV PUSH ONE ×2 (13:45)
[2017-02-14] MEDS ORDERED: SODIUM CHLOR 0.9% 250 ML INJ 250 ML IV ONE ×2 (13:45→16:15)
[2017-02-14] MEDS ORDERED: SODIUM BICARBONATE 8.4% SOLN 50 MEQ/50 ML VIAL SLOW IVP ONE (14:15)
[2017-02-14] MEDS ORDERED: CALCIUM GLUCONATE 10% 1 GM/10 ML VIAL SLOW IVP ONE (14:15)
[2017-02-14] MEDS ORDERED: RESP: ALBUTEROL CONC 2.5 MG/0.5 ML NEB INH ONE (14:15)
[2017-02-14] MEDS ORDERED: DEXTROSE 50% IN WATER 50 ML VIAL(D50) IV PUSH ONE (14:15)
[2017-02-14 14:22] LABS: LACTIC ACID GHOST NOT REPORTABLE
[2017-02-14 14:22] LABS: BLOOD GAS VENOUS BASE EXCESS -10.3 mmol/L (-2-2); BLOOD GAS VENOUS HCO3 18 mmol/L (22-26); BLOOD GAS VENOUS O2 HGB SAT 32 % (70-76); BLOOD GAS VENOUS PCO2 66 mmHg (44-48); BLOOD GAS VENOUS PO2 32 mmHg (35-40); BLOOD GAS VENOUS pH 7.07 (7.360-7.400); CRITICAL VALUE YES; DRAW SITE LT RADIAL; OXYGEN DEVICE VENT; STAT NO; TEMP CORR TO 98.6
[2017-02-14] MEDS ORDERED: INSULIN HUMAN REGULAR 1,000 UNITS/10 ML VIAL IV PUSH ONE (14:30)
[2017-02-14] MEDS ORDERED: RESP: ALBUTEROL 2.5 MG/3 ML NEB (SCH) ONE (14:33)
--- NOTE | 2017-02-14 15:04 | RADRPT ---
EXAM DATE/TIME: 02/14/2017 14:38 [facility] COMPARISON: CT ABDOMEN & PELVIS W CONTRAST, January 04, 2017, 10:32. CT BRAIN W/O CONTRAST, February 14, 2017, 12:22. INDICATIONS : Fever, evaluate for Sepsis. ORAL CONTRAST: No oral contrast ingested. RADIATION DOSE: 10.08 CTDIvol (mGy) MEDICAL HISTORY : Hypertension. DVT, COPD SURGICAL HISTORY : Non-responsive. ENCOUNTER: Subsequent ACUITY: 1 day PAIN SCALE: 0/10 LOCATION: Abdomen TECHNIQUE: Volumetric scanning of the abdomen and pelvis was performed. Using automated exposure control and ad justment of the mA and/or kV according to patient size, radiation dose was kept as low as reasonably achievable to obtain optimal diagnostic quality images. FINDINGS: The limited portion of the lung base visualized demonstrates minimal right basilar effusion. There ar e COPD changes. The appearance of the liver, spleen, pancreas, adrenal glands and kidneys is within normal limits. The abdominal aorta is normal in caliber. Note is made of an IVC filter. The visualized loops of small large bowel demonstrate moderate gaseous distention of the cecum and as cending colon. Maximum transverse dimension is 8.6 cm. No free air is seen. There is no free fluid within the pelvis. No iliac or inguinal adenopathy is present. There is a Parada catheter within the bladder. CONCLUSION: 1. Mild gaseous distention of the cecum. 2. Very minimal right basilar effusion. 3. No focal abscess identified. 4. Minimal left inguinal hernia. Flash Clinton MD on February 14, 2017 at 14:58 Board Certified Radiologist. This report was verified electronically.
[2017-02-14] MEDS ORDERED: CHLORHEXIDINE GLUCONATE 2 % 1 PACK (2 CLOTHS) TOP PRN (15:15)
[2017-02-14] MEDS ORDERED: PROPOFOL 1000 MG/100 ML INJ 100 ML IV SCH (15:15)
[2017-02-14] MEDS ORDERED: SODIUM CHLORIDE 0.9% FLUSH 10 ML FLUSH IV FLUSH PRN (15:15)
[2017-02-14] MEDS ORDERED: MISCELLANEOUS NURSING INFORMATION XX SCH (15:15)
[2017-02-14] MEDS ORDERED: RESP: ALBUTEROL 2.5 MG/IPRATROPIUM 0.5 MG NEB (PRN) INH (15:15)
[2017-02-14] MEDS ORDERED: GLUCAGON 1 MG/ML VIAL OTHER PRN (15:30)
[2017-02-14] MEDS ORDERED: DEXTROSE 50% IN WATER 50 ML VIAL(D50) IV PUSH PRN (15:30)
[2017-02-14] MEDS: SODIUM BICARBONATE 8.4% INJ 150 MEQ in DEXTROSE 5% IN WATE 1000ML INJ 1,000 ML IV SCH ×2 (16:00)
--- NOTE | 2017-02-14 16:13 | RADRPT ---
EXAM DATE/TIME: 02/14/2017 15:45 [facility] COMPARISON: CHEST SINGLE AP, February 14, 2017, 12:38. INDICATIONS : Evaluate central line placement. MEDICAL HISTORY : Hypertension. Chronic obstructive pulmonary disease. Emphysema. Renal disease. Diabetes. Liver diseas e. SURGICAL HISTORY : Nephrectomy. ENCOUNTER: Subsequent ACUITY: 1 day PAIN SCORE: Non-responsive. LOCATION: Bilateral chest FINDINGS: Interval placement of endotracheal tube with tip approximately 3 centers above the gianfranco. Suction ty pe of nasogastric catheter in the stomach. Right subclavian central line with tip at the atrial caval junction. Lungs are slightly hypoaerated. No significant pneumothorax or focal pleural or parenchyma l opacity. Cardiomediastinal contours are within normal limits. Remainder of the exam is unchanged. CONCLUSION: 1. ETT in good position. NGT in the stomach. Right subclavian central line in good position. 2. No pneumothorax. Hal Cm MD on February 14, 2017 at 16:10 Board Certified Radiologist. This report was verified electronically.
[2017-02-14] MEDS ORDERED: DEXAMETHASONE SOD PHOS 4 MG/ML VIAL IV PUSH ONE (16:15)
[2017-02-14 16:18] LABS: MEAN CELL VOLUME 89.3 FL (80.0-100.0); MEAN CORPUSCULAR HEMOGLOBIN 31.4 PG (27.0-34.0); MEAN CORPUSCULAR HGB CONC 35.2 % (32.0-36.0); PLATELET COUNT 283 TH/MM3 (150-450); RED BLOOD COUNT 2.01 MIL/MM3 (4.50-5.90); RED CELL DISTRIBUTION WIDTH 16.3 % (11.6-17.2); WHITE BLOOD COUNT 18.9 TH/MM3 (4.0-11.0)
[2017-02-14 16:26] LABS: REVIEW FLAG FINAL
[2017-02-14] MEDS: RESP: ALBUTEROL 2.5 MG/IPRATROPIUM 0.5 MG NEB (SCH) NEB ×2 (16:30→20:49)
[2017-02-14 16:32] LABS: APTT (PATIENT) 32.5 SEC (24.3-30.1)
[2017-02-14 16:45] LABS: CREATINE KINASE 303 U/L (39-308)
[2017-02-14] MEDS ORDERED: MORPHINE SULFATE 8 MG/ML INJ ONE (16:47)
[2017-02-14 16:48] LABS: ALKALINE PHOSPHATASE 216 U/L (45-117); ALT (GPT) 357 U/L (12-78); ANION GAP 11 MEQ/L (5-15); AST (GOT) 408 U/L (15-37); BICARBONATE 25.6 MEQ/L (21.0-32.0); BLOOD UREA NITROGEN 54 MG/DL (7-18); CHLORIDE 88 MEQ/L (98-107); GLOMERULAR FILTRATION RATE 15 ML/MIN (>89); MAGNESIUM 2.2 MG/DL (1.5-2.5); POTASSIUM 5.1 MEQ/L (3.5-5.1); SODIUM (NA) 125 MEQ/L (136-145); TOTAL BILIRUBIN ADULT 0.6 MG/DL (0.2-1.0)
[2017-02-14 16:55] LABS: BLOOD GAS CARBOXYHEMOGLOBIN 1.2 % (0-4); BLOOD GAS HCO3 21 mmol/L (22-26); BLOOD GAS METHEMOGLOBIN 1.4 % (0-2); BLOOD GAS O2 HGB SATURATION 97 % (90-100); BLOOD GAS OXYGEN CONTENT 10.4 Vol % (12.0-20.0); BLOOD GAS PCO2 59 mmHg (38-42); BLOOD GAS PO2 431 mmHg (61-120); BLOOD GAS TOTAL HGB 6.7 G/DL (12.0-16.0); CRITICAL VALUE YES; DRAW SITE ART LINE; FIO2 100 %; NUMBER OF ARTERIAL PUNCTURES 0; OXYGEN DEVICE VENTILATOR; TEMP CORR TO 98.6; ULNAR PULSE PRESENT; VENT SETTINGS AC/20/600/PEEP5
[2017-02-14 16:56] LABS: STAT NO
[2017-02-14 16:57] LABS: CKMB 3.7 NG/ML (0.5-3.6)
--- NOTE | 2017-02-14 17:18 | HHI.HP ---
HPI Service Critical Care Medicine Primary Care Physician No Primary Care Physician Admission Diagnosis SEVERE SEPSIS/AMS WITH HYPONATREMIA/HYPERKALEMIA Diagnosis: Chief Complaint: Altered mental status, hypotension, cardiac arrest Travel History International Travel<30 Days: No Contact w/Intl Traveler <30 Da: No Traveled to Known Affected Are: No History of Present Illness 76-year-old Male. 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 Patient was found confused and altered by his roommate on 01/04. Was transferred to [facility]. CT abdomen and pelvis revealed a right-sided 3.6 x 2.5 cm left 2.5 bilateral adrenal hemorrhage. He was also diagnosed to have an ileus during that admission. He was evaluated by general surgery, GI who recommended medical management for ileus. He was also evaluated by Dr. Arauz from hematology and in view of bilateral adrenal hemorrhages he was felt to be too high risk for full anticoagulation hence an IVC filter was placed at the time due to his hypercoagulable state. He was positive for lupus anticoagulant and MTHFR gene mutation (heterozygous state). Patient was discharged on January 25, 2017 on a prednisone taper over 13 days which she completed around 02/08/2017. He was discharged to rehabilitation. Patient was not feeling well for the last week or so prior to current admission on 02/14 according to his sister whom I contacted by phone. He was sent to Dr. Trevino's office on 02/14 where he was noted to be confused and disoriented and hypotensive and she was sent to the ER. He had been noted to have a drop in hemoglobin at the rehabilitation a few days back. Patient was evaluated in the ER and was noted to have an altered mental status with sodium of 115, acute kidney injury with creatinine 3.83, potassium 6.2 and significant metabolic acidosis with bicarbonate of 15.8. His hemoglobin was 7 and white count was 17, 000. His systolic blood pressure was in the 70s initially. He received 2 L normal saline bolus was initiated on empiric vancomycin and Zosyn after obtaining blood cultures. While in the ER he became bradycardic and subsequently had an asystole for which CPR/ACLS protocol was initiated for about 15 minutes following which she had return of spontaneous circulation. He was intubated during the code and placed on mechanical ventilation. He was noted to have an elevated lactic acid of 6.2. He underwent CT of his abdomen and pelvis which was unremarkable. Head CT was negative for bleed. I evaluated patient after his arrival to the ICU from CAT scan. At that time he was orally intubated on mechanical ventilation appeared encephalopathic and not following commands. He did have his eyes open spontaneously at the time and was extremely tachypneic on mechanical ventilation due to his metabolic acidosis. I emergently placed a right subclavian central venous catheter as he was hypotensive requiring Levophed for pressor support. He had received 2 L normal saline bolus earlier and was being initiated on a bicarbonate drip. I also emergently placed a right axillary a line. History was obtained by reviewing records and discussion with patient's sister Karen Del Valle as well as ER physician. Review of Systems ROS Limitations: Intubated, Altered Mental Status, Unresponsive Past Family Social History Allergies: Coded Allergies: No Known Allergies (Unverified , 02/14/17) Past Medical History Past Medical History Hx Anticoagulant Therapy: NO Autoimmune Disease: No Anxiety: No (JO-ANN) Heart Rhythm Problems: No Cancer: No Cardiovascular Problems: Yes High Cholesterol: No Chest Pain: No Congestive Heart Failure: No Deep Vein Thrombosis: Yes Endocrine: No Genitourinary: No Hypertension: Yes Immune Disorder: No Kidney Stones: No (JO-ANN) Musculoskeletal: No Neurologic: No Psychiatric: No Reproductive: No Respiratory: Yes Sickle Cell Disease: No Past Surgical History Past Surgical History Abdominal Surgery: No AICD: No Arteriovenous Shunt: No Cardiac Surgery: No Ear Surgery: No Endocrine Surgery: No Eye Surgery: No Genitourinary Surgery: No Gynecologic Surgery: No Insulin Pump: No Joint Replacement: No Oral Surgery: No Pacemaker: No Thoracic Surgery: No Other Surgery: Yes (Vein RLE, vasectomy, hernia, IVC filter) Reported Medications Reported Meds & Active Scripts Active Thera/Beta-Carotene (Multiple Vitamin) 1 Tab Tab 1 Tab PO DAILY 30 Days Dok (Docusate Sodium) 100 Mg Cap 100 Mg PO BID Aspirin EC (Aspirin) 81 Mg Tabdr 81 Mg PO DAILY 30 Days Norvasc (Amlodipine Besylate) 10 Mg Tab 10 Mg PO DAILY 30 Days Albuterol Neb (Albuterol Sulfate) 2.5 Mg/3 Ml Neb 2.5 Mg INH Q8HR PRN 5 Days Reported Vitamin C ER (Ascorbic Acid) 500 Mg Isabel 500 Mg PO Vitamin B-1 (Thiamine HCl) 100 Mg Tab 100 Mg PO DAILY Fleet Oil Enema (Mineral Oil) 118 Ml Enem 1 Ea RECTAL DIRECTED PRN Milk of Magnesia Liq (Magnesium Hydroxide) 400 Mg/5 Ml Susp 30 Ml PO DAILY PRN Zofran Odt (Ondansetron Odt) 4 Mg Tab 4 Mg SL Q6HR PRN Tylenol (Acetaminophen) 325 Mg Tab 650 Mg PO Q6H PRN Sulfamethoxazole-Trimethoprim 800-160 Mg Tab 1 Tab PO BID ? Culturelle (Lactobacillus Rhamnosus (GG)) 10 B Cell Cap 1 Cap PO DAILY Doxycycline Hyclate 100 Mg Cap 100 Mg PO DAILY ? Metoprolol Tartrate 50 Mg Tab 50 Mg PO BID Family History noncontributory at this time Social History Social History Alcohol Use: Yes ("Shots couple times a week" ) Tobacco Use: No Substance Use: No Physical Exam Vital Signs Vital Signs Date Time Temp Pulse Resp B/P Pulse Ox O2 Delivery O2 Flow Rate FiO2 02/14/17 16:58 0 70 02/14/17 16:19 0 100 02/14/17 16:00 98 02/14/17 14:03 112 168/58 100 Ventilator 02/14/17 13:54 119 184/80 99 Ventilator 02/14/17 13:53 120 18 208/108 97 Nasal Cannula 3 02/14/17 13:45 94 100 02/14/17 12:39 92 24 107/55 97 Room Air 02/14/17 11:59 27 02/14/17 11:58 98 Room Air 02/14/17 11:49 97.8 93 26 98/62 98 Physical Exam HEENT/ Neuro: Encephalopathic, has spontaneous eye opening however not following commands, orally intubated, Pallor present, no icterus, tongue/ mucosa dry Neck: No JVD Chest/Pulm: on mech vent, good air entry bilaterally, no wheezing or crackles CVS: S1-S2 regular, no murmur GI/abdomen: soft, nontender, bowel sounds sluggish Extremities: warm bilaterally, no edema Laboratory Laboratory Tests Test 02/14/17 02/14/17 02/14/17 02/14/17 12:00 12:08 12:14 13:10 White Blood Count 17.7 Red Blood Count 2.53 Hemoglobin 7.7 Hematocrit 22.4 Mean Corpuscular Volume 88.8 Mean Corpuscular Hemoglobin 30.5 Mean Corpuscular Hemoglobin 34.3 Concent Red Cell Distribution Width 16.9 Platelet Count 391 Mean Platelet Volume 8.6 Neutrophils (%) (Auto) 59.9 Lymphocytes (%) (Auto) 26.8 Monocytes (%) (Auto) 11.0 Eosinophils (%) (Auto) 1.5 Basophils (%) (Auto) 0.8 Neutrophils # (Auto) 10.6 Lymphocytes # (Auto) 4.7 Monocytes # (Auto) 1.9 Eosinophils # (Auto) 0.3 Basophils # (Auto) 0.1 CBC Comment DIFF FINAL Differential Comment Prothrombin Time 14.0 Prothromb Time International 1.3 Ratio Activated Partial 36.8 Thromboplast Time Sodium Level 115 Potassium Level 6.2 Chloride Level 81 Carbon Dioxide Level 15.8 Anion Gap 18 Blood Urea Nitrogen 50 Creatinine 3.83 Estimat Glomerular Filtration 15 Rate Random Glucose 86 Calcium Level 9.6 Total Bilirubin 0.9 Aspartate Amino Transf 82 (AST/SGOT) Alanine Aminotransferase 79 (ALT/SGPT) Alkaline Phosphatase 266 Troponin I LESS THAN 0.02 Total Protein 7.4 Albumin 2.9 Thyroid Stimulating Hormone 8.090 3rd Gen Blood Gas Puncture Site LT BRACHIAL Blood Gas Patient Temperature 98.6 Blood Gas HCO3 16 Blood Gas Base Excess -8.1 Blood Gas Oxygen Saturation 97 Arterial Blood pH 7.37 Arterial Blood Partial 29 Pressure CO2 Arterial Blood Partial 127 Pressure O2 Arterial Blood Oxygen Content 11.0 Arterial Blood 1.7 Carboxyhemoglobin Arterial Blood Methemoglobin 0.4 Blood Gas Hemoglobin 7.9 Oxygen Delivery Device NASAL CANNULA Blood Gas Inspired Oxygen 4 Lactic Acid Level 6.2 Ammonia 20 Urine Color YELLOW Urine Turbidity CLEAR Urine pH 5.5 Urine Specific [place] 1.013 Urine Protein 30 Urine Glucose (UA) NEG Urine Ketones NEG Urine Occult Blood NEG Urine Nitrite NEG Urine Bilirubin NEG Urine Urobilinogen LESS THAN 2.0 Urine Leukocyte Esterase NEG Urine RBC LESS THAN 1 Urine WBC 1 Urine Hyaline Casts 1 Urine Mucus FEW Microscopic Urinalysis Comment CATH-CULT NOT IND Test 02/14/17 02/14/17 02/14/17 02/14/17 13:51 14:10 15:40 16:38 Blood Type O NEGATIVE O NEGATIVE Antibody Screen NEGATIVE Crossmatch Leukocyte-Reduced Leukocyte-Reduced Red Blood Red Blood Cells Cells Blood Bank Comment Blood Gas Puncture Site LT RADIAL Blood Gas Patient Temperature 98.6 Venous Blood pH 7.07 Venous Blood Partial Pressure 66 CO2 Venous Blood Partial Pressure 32 O2 Venous Blood HCO3 18 Venous Blood Oxygen Saturation 32 Venous Blood Oxygen Content 3.0 Venous Blood Base Excess -10.3 Oxygen Delivery Device VENT Blood Gas Ventilator Setting White Blood Count 18.9 Red Blood Count 2.01 Hemoglobin 6.3 Hematocrit 18.0 Mean Corpuscular Volume 89.3 Mean Corpuscular Hemoglobin 31.4 Mean Corpuscular Hemoglobin 35.2 Concent Red Cell Distribution Width 16.3 Platelet Count 283 Mean Platelet Volume 8.4 Activated Partial 32.5 Thromboplast Time Sodium Level 125 Potassium Level 5.1 Chloride Level 88 Carbon Dioxide Level 25.6 Anion Gap 11 Blood Urea Nitrogen 54 Creatinine 3.92 Estimat Glomerular Filtration 15 Rate Random Glucose 57 Calcium Level 8.9 Magnesium Level 2.2 Total Bilirubin 0.6 Aspartate Amino Transf 408 (AST/SGOT) Alanine Aminotransferase 357 (ALT/SGPT) Alkaline Phosphatase 216 Total Creatine Kinase 303 Creatine Kinase MB 3.7 Troponin I 0.06 Total Protein 5.7 Albumin 2.4 Test 02/14/17 16:44 Blood Gas Puncture Site ART LINE Blood Gas Patient Temperature 98.6 Blood Gas HCO3 21 Blood Gas Base Excess -6.0 Blood Gas Oxygen Saturation 97 Arterial Blood pH 7.18 Arterial Blood Partial 59 Pressure CO2 Arterial Blood Partial 431 Pressure O2 Arterial Blood Oxygen Content 10.4 Arterial Blood 1.2 Carboxyhemoglobin Arterial Blood Methemoglobin 1.4 Blood Gas Hemoglobin 6.7 Oxygen Delivery Device VENTILATOR Blood Gas Ventilator Setting AC/20/600/PEEP5 Blood Gas Inspired Oxygen 100 Date/Time Procedure Status Source Growth 02/14/17 12:14 Aerobic Blood Culture Received Blood Peripheral Pending 02/14/17 12:14 Anaerobic Blood Culture Received Blood Peripheral Pending Result Diagram: 02/14/17 1540 02/14/17 1540 Imaging Last Impressions Head CT 02/14/17 1152 Signed Impressions: Service Date/Time: February 12:22 - CONCLUSION: 1. No acute intracranial abnormality. Flash Clinton MD Chest X-Ray 02/14/17 1152 Signed Impressions: Service Date/Time: February 12:38 - CONCLUSION: No acute disease. Hamlet Taylor Jr., MD Abdomen/Pelvis CT 02/14/17 0000 Signed Impressions: Service Date/Time: February 14:38 - CONCLUSION: 1. Mild gaseous distention of the cecum. 2. Very minimal right basilar effusion. 3. No focal abscess identified. 4. Minimal left inguinal hernia. Flash Clinton MD Septic Shock Reassessment Heart: Regular rate and rhythm Lungs: Clear Skin: Cold Peripheral Pulses: Weak Right Radial Capillary Refill: Sluggish Assessment and Plan Assessment and Plan 76-year-old male with: Hyponatremia Hyperkalemia Encephalopathy Cardiac arrest status post CPR Metabolic acidosis Suspected adrenal insufficiency Lactic acidosis Acute kidney injury Acute respiratory failure on mechanical ventilation Anemia History of DVT status post IVC filter History of bilateral adrenal hemorrhages History of COPD Lupus anticoagulant positive Plan: Neuro: Follow neuro status. Propofol for sedation as needed. Avoid sedatives if possible. Cardiovascular: Aggressive fluid resuscitation. Patient has received 2 L normal saline. Initiated bicarbonate drip. 2 units PRBCs to be transfused stat. Levophed for pressor support. Currently on Levophed 20 mics per minute. Trend CVP and lactic acid. Pulmonary: Continue mechanical ventilation, vent bundle, bronchi dilators as needed. GI/liver: Nothing by mouth for now. NG tube to low intermittent wall suction. CT abdomen pelvis unremarkable. Renal/: IV hydration, strict intake output, monitor and replete electro lites , follow BUN/creatinine. Hyponatremia noted. Follow serial sodiums. Initially received normal saline in the ER which was switched to a bicarbonate drip due to metabolic acidosis. ID: Follow-up cultures. Received IV vancomycin/Zosyn in the ER. Empiric antibiotic coverage with IV Zosyn to be continued. Endocrine: Patient has a history of bilateral adrenal hemorrhages in last hospitalization and was discharged on prednisone which she completed around . In view of hyponatremia and severe metabolic acidosis concern for adrenal insufficiency. Check cortisol level. Initiated. Decadron 4 mg IV stat and then every 12 hourly. Heme: Follow CBC and coags. 2 units PRBCs to be transfused stat. Patient does have a hypercoagulable state with lupus anticoagulant positivity and DVT. Off anticoagulation currently due to drop in hemoglobin. We'll consult hematology tomorrow to decide regarding anticoagulation. Patient does have an IVC filter in place. Prophylaxis: PPI/SCDs/ subcutaneous heparin starting tomorrow hemoglobin stabilizes requiring transfusions. Access: Right subclavian central line placed and 6/8. Right axillary a line placed 6/8 Condition critical. Spoke with patient's sister Karen Del Valle at [phone]. I updated her regarding patient's critical condition and cardiac arrest in the ER and she voiced understanding. She wishes to continue aggressive care for now however and event of another cardiac arrest she does not want CPR and agrees with the DNR status. Time spent on critical care excluding procedures: 100 minutes Kwasi Chahal MD Feb 14, 2017 17:18
[2017-02-14] MEDS: INSULIN ASPART SUPPLEMENTAL SCALE SQ SCH (18:00)
[2017-02-14] MEDS ORDERED: CHLORHEXIDINE GLUCONATE 2 % 1 PACK (2 CLOTHS)(extra cloths) TOPICAL PRN (18:15)
--- NOTE | 2017-02-14 18:30 | PD.PROCEDR ---
Central Line Procedure REASON FOR PROCEDURE Central venous access PROCEDURE PERFORMED Central line placement: Right subclavian vein CONSENT Informed consent for procedure was not obtained as this was an emergent procedure. ANESTHESIA Local injection of 1% Lidocaine DESCRIPTION OF THE PROCEDURE The patient was placed in supine, mild Trendelenburg position. The area was exposed and cleansed with ChloraPrep, times two. Large sterile drape was used to cover the patient, with the site exposed, under sterile conditions including cap, face mask, sterile gown, and sterile gloves. On single attempt, the introducer needle was inserted with negative pressure in syringe and venous flash was obtained. The guide wire was then advanced without any restriction and the needle was removed. The dilator was used without any complications. Using Seldinger technique a 20 cm antimicrobial coated triple lumen catheter was advanced over the guide wire to a depth of 16 centimeters. The guide wire was removed. All ports were aspirated with dark venous blood return and flushed easily with sterile saline. All ports were capped. Antibiotic disc was placed around central line at puncture site. The central line was secured to the skin with two interrupted 2.0 silk sutures. The area was bandaged with sterile see-through central line bandage. COMPLICATIONS: No apparent complications ESTIMATED BLOOD LOSS: 2 cc. Kwasi Chahal MD Feb 14, 2017 18:30
--- NOTE | 2017-02-14 18:35 | PD.PROCEDR ---
Procedure Note Procedure Procedure: Right axillary arterial catheter placement with ultrasound guidance Preop diagnosis: Cardiac arrest status post CPR, shock Postop diagnosis: Same Anesthesia: 1% lidocaine for local infiltration anesthesia Procedure: After sterile prepping and draping using 1% lidocaine for local infiltration anesthesia, right axillary artery was visualized using ultrasound vessel finder and was cannulated using an introducer needle with bright pulsatile blood return. A guidewire was passed through the introducer needle without any resistance and the needle was then removed. A 12 cm 20-gauge arterial catheter was passed over the guidewire by modified Seldinger's technique up to the 12 cm loren and after removal of guidewire catheter was connected to transducer tubing with good waveform being obtained on the monitor. Biopatch was applied to the insertion site and catheter was sutured in place. Sterile Bi0-occlusive dressing was applied to the site. Patient tolerated the procedure well with no immediate competitions noted. Kwasi Chahal MD Feb 14, 2017 18:35
[2017-02-14] MEDS ORDERED: PIPERACIL-TAZO 3.375 GM PREMIX 50 ML IV SCH (20:00)
[2017-02-14 20:19] LABS: BLOOD GAS BASE EXCESS -6.3 mmol/L (-2-2); BLOOD GAS CARBOXYHEMOGLOBIN 1.5 % (0-4); BLOOD GAS HCO3 18 mmol/L (22-26); BLOOD GAS METHEMOGLOBIN 1.2 % (0-2); BLOOD GAS O2 HGB SATURATION 97 % (90-100); BLOOD GAS OXYGEN CONTENT 16.4 Vol % (12.0-20.0); BLOOD GAS PCO2 30 mmHg (38-42); BLOOD GAS PO2 243 mmHg (61-120); BLOOD GAS TOTAL HGB 11.6 G/DL (12.0-16.0); TEMP CORR TO 98.6
[2017-02-14 20:20] LABS: CRITICAL VALUE NO; OXYGEN DEVICE VENT; VENT SETTINGS SEE COMMENTS
[2017-02-14 20:21] LABS: DRAW SITE ART LINE; FIO2 70 %; STAT NO; ULNAR PULSE PRESENT
[2017-02-14 20:52] LABS: HEMATOCRIT 26.2 % (39.0-51.0); MEAN CELL VOLUME 84.5 FL (80.0-100.0); MEAN CORPUSCULAR HGB CONC 35.5 % (32.0-36.0); PLATELET COUNT 291 TH/MM3 (150-450); RED CELL DISTRIBUTION WIDTH 15.9 % (11.6-17.2); REVIEW FLAG FINAL
[2017-02-14 21:06] LABS: MEAN CORPUSCULAR HGB CONC 36.2 % (32.0-36.0)
[2017-02-14 21:32] LABS: ALKALINE PHOSPHATASE 243 U/L (45-117); ALT (GPT) 687 U/L (12-78); ANION GAP 16 MEQ/L (5-15); AST (GOT) 755 U/L (15-37); BICARBONATE 19.4 MEQ/L (21.0-32.0); BLOOD UREA NITROGEN 52 MG/DL (7-18); CHLORIDE 86 MEQ/L (98-107); CREATINE KINASE 2063 U/L (39-308); GLOMERULAR FILTRATION RATE 15 ML/MIN (>89); POTASSIUM 5.2 MEQ/L (3.5-5.1)
[2017-02-14 21:38] LABS: SODIUM (NA) 121 MEQ/L (136-145)
[2017-02-14 21:56] LABS: CKMB 7.9 NG/ML (0.5-3.6)
[2017-02-14] MEDS: PIPERACIL-TAZO 2.25 GM PREMIX 50 ML IV SCH (22:03)
[2017-02-14] MEDS: DEXAMETHASONE SOD PHOS 4 MG/ML VIAL IV PUSH SCH (22:04)
[2017-02-14] MEDS: HEPARIN SODIUM - SQ 10,000 UNITS/ML VIAL SQ SCH (22:04)
[2017-02-14] MEDS: ACETAMINOPHEN 650 MG/20.3 ML UDC PO PRN (22:04)
[2017-02-14] MEDS: SODIUM CHLORIDE 0.9% FLUSH 10 ML FLUSH IV FLUSH SCH (22:05)
[2017-02-14] MEDS: CHLORHEXIDINE 0.12% (ORAL KIT) 15 ML CUP MT SCH (22:26)
[2017-02-14 23:05] LABS: BLOOD GAS BASE EXCESS -5.9 mmol/L (-2-2); BLOOD GAS CARBOXYHEMOGLOBIN 1.4 % (0-4); BLOOD GAS HCO3 18 mmol/L (22-26); BLOOD GAS METHEMOGLOBIN 1.2 % (0-2); BLOOD GAS O2 HGB SATURATION 97 % (90-100); BLOOD GAS OXYGEN CONTENT 19.4 Vol % (12.0-20.0); BLOOD GAS PCO2 27 mmHg (38-42); BLOOD GAS PO2 203 mmHg (61-120); BLOOD GAS TOTAL HGB 13.9 G/DL (12.0-16.0); TEMP CORR TO 98.6
[2017-02-14 23:06] LABS: CRITICAL VALUE NO; OXYGEN DEVICE VENT
[2017-02-14 23:07] LABS: DRAW SITE ART LINE; FIO2 50 %; STAT NO; ULNAR PULSE PRESENT; VENT SETTINGS SEE COMMENTS
[2017-02-15] VITALS (19 sets, daily range): BP systolic 107–135; BP diastolic 55–86; PULSE 100–126; RESP 0–22; TEMP 98.2–100.4; O2SAT 97–100
[2017-02-15] MEDS: INSULIN ASPART SUPPLEMENTAL SCALE SQ SCH ×5 (00:26→20:08)
[2017-02-15] MEDS: PIPERACIL-TAZO 2.25 GM PREMIX 50 ML IV SCH ×3 (01:45→14:44)
[2017-02-15] MEDS ORDERED: TERBUTALINE INJ 1 MG/ML AMP SQ PRN (02:45)
[2017-02-15] MEDS ORDERED: NOREPINEPHRINE-DEXTROSE DRIP 250 ML IV SCH (02:45)
[2017-02-15] MEDS: SODIUM BICARBONATE 8.4% INJ 150 MEQ in DEXTROSE 5% IN WATE 1000ML INJ 1,000 ML IV SCH ×2 (02:49)
[2017-02-15] MEDS: RESP: ALBUTEROL 2.5 MG/IPRATROPIUM 0.5 MG NEB (SCH) NEB ×4 (03:10→20:31)
[2017-02-15] MEDS: CHLORHEXIDINE GLUCONATE 2 % 1 PACK (2 CLOTHS) TOP SCH (04:00)
[2017-02-15] MEDS: CHLORHEXIDINE GLUCONATE 2 % 1 PACK (2 CLOTHS)(taper/protocol) TOPICAL SCH (04:00)
--- NOTE | 2017-02-15 05:45 | RADRPT ---
EXAM DATE/TIME: 02/15/2017 04:23 [facility] COMPARISON: No previous studies available for comparison. INDICATIONS : Evaluate for respiratory failure. MEDICAL HISTORY : Hypertension. Chronic obstructive pulmonary disease. Emphysema. Renal disease. Diabetes. Liver diseas e. SURGICAL HISTORY : Nephrectomy. ENCOUNTER: Subsequent ACUITY: 2 days PAIN SCORE: Non-responsive. LOCATION: chest FINDINGS: No infiltrate, effusion or pneumothorax. Heart size stable, within normal limits. Endotracheal tube tip is approximately 2 cm above the gianfranco. There is a nasogastric tube coiled in t he stomach and a right subclavian central venous catheter with tip in the superior vena cava. CONCLUSION: No change. Lungs remain reasonably clear. Santos Arce MD on February 15, 2017 at 5:43 Board Certified Radiologist. This report was verified electronically.
[2017-02-15 05:51] LABS: BASOPHIL % 0.1 % (0.0-2.0); HEMATOCRIT 24.7 % (39.0-51.0); LYMPH % 2.5 % (9.0-44.0); LYMPHOCYTE # 0.3 TH/MM3 (1.0-4.8); MEAN CELL VOLUME 83.7 FL (80.0-100.0); MEAN CORPUSCULAR HEMOGLOBIN 30.3 PG (27.0-34.0); MONO % 1.5 % (0.0-8.0); NEUT % 95.9 % (16.0-70.0); PLATELET COUNT 285 TH/MM3 (150-450); RED BLOOD COUNT 2.94 MIL/MM3 (4.50-5.90); RED CELL DISTRIBUTION WIDTH 16.1 % (11.6-17.2); WHITE BLOOD COUNT 13.6 TH/MM3 (4.0-11.0)
[2017-02-15 05:57] LABS: HEMO FLAGS AUTO DIFF
[2017-02-15 06:11] LABS: ALKALINE PHOSPHATASE 220 U/L (45-117); ALT (GPT) 760 U/L (12-78); ANION GAP 16 MEQ/L (5-15); AST (GOT) 735 U/L (15-37); BICARBONATE 22.9 MEQ/L (21.0-32.0); BLOOD UREA NITROGEN 49 MG/DL (7-18); CHLORIDE 85 MEQ/L (98-107); GLOMERULAR FILTRATION RATE 16 ML/MIN (>89); POTASSIUM 3.7 MEQ/L (3.5-5.1); TOTAL BILIRUBIN ADULT 0.7 MG/DL (0.2-1.0)
[2017-02-15 06:23] LABS: SODIUM (NA) 124 MEQ/L (136-145)
[2017-02-15 06:55] LABS: PLATELET ESTIMATE SMEAR NORMAL (NORMAL); PLATELET MORPHOLOGY ENLARGED (NORMAL); SCAN/DIFF AUTO DIFF CONFIRMED
[2017-02-15] MEDS: HEPARIN SODIUM - SQ 10,000 UNITS/ML VIAL SQ SCH ×2 (08:45→20:08)
[2017-02-15] MEDS: PANTOPRAZOLE SODIUM 40 MG VIAL IV SCH (08:45)
[2017-02-15] MEDS: SODIUM CHLORIDE 0.9% FLUSH 10 ML FLUSH IV FLUSH SCH ×2 (08:46→21:44)
[2017-02-15] MEDS: DEXAMETHASONE SOD PHOS 4 MG/ML VIAL IV PUSH SCH (08:46)
[2017-02-15] MEDS: CHLORHEXIDINE 0.12% (ORAL KIT) 15 ML CUP MT SCH ×2 (08:46→20:00)
--- NOTE | 2017-02-15 10:34 | PD.CONS ---
[facility] Service Nephrology Consult Requested By Fela Reason for Consult TIBURCIO Primary Care Physician No Primary Care Physician History of Present Illness This is a 76 y/o male who was recently discharged s/p hospitalization for adrenal hemorrhage and SBO. He was placed on a prednisone taper which ended on . He had not been feeling well for the past week, and was sent to Dr. Trevino' office on 02/14 for evaluation, where he was noted to be confused and disoriented and hypotensive and she was then sent to the ER. He had been noted to have a drop in hemoglobin at the rehabilitation a few days back. Patient was evaluated in the ER and was noted to have an altered mental status with sodium of 115, acute kidney injury with creatinine 3.83, potassium 6.2 and significant metabolic acidosis with bicarbonate of 15.8. His hemoglobin was 7 and white count was 17,000. His systolic blood pressure was in the 70s initially. He received 2 L normal saline bolus was initiated on empiric vancomycin and Zosyn after obtaining blood cultures. While in the ER he became bradycardic and subsequently had an asystole for which CPR/ACLS protocol was initiated for about 15 minutes following which she had return of spontaneous circulation. He was intubated during the code and placed on mechanical ventilation. His creatinine has been fluctuant but is down to 3.7 today. At hospital discharge last month it was 1.3. Prior to that in January creatinine was 1.05. He is on NS @ 100 cc/hr. He was started on Decadron and the patient responded, is now awake and trying to speak. He is still intubated but on cPAP. He is off pressors, but tachycardic. He is making good urine. His sodium level has improved to 124. We were consulted for TIBURCIO. He is a DNR. (Radha Fernandez) Review of Systems ROS Limitations: Intubated, Altered Mental Status (Radha Fernandez) Past Family Social History Allergies: Coded Allergies: No Known Allergies (Unverified , 02/14/17) Past Medical History HTN Hx DVT in right lower extremity Depression Anxiety Chronic Right Lower Extremity Wound in the Medial Aspect of His Right Ankle bilateral adrenal hemorrhages IVC filter placement recently. Past Surgical History IVC filter placement Right lower extremity vein stripping Vasectomy Hernia repair Reported Medications Thera/Beta-Carotene (Multiple Vitamin) 1 Tab Tab 1 Tab PO DAILY 30 Days Dok (Docusate Sodium) 100 Mg Cap 100 Mg PO BID Aspirin EC (Aspirin) 81 Mg Tabdr 81 Mg PO DAILY 30 Days Norvasc (Amlodipine Besylate) 10 Mg Tab 10 Mg PO DAILY 30 Days Albuterol Neb (Albuterol Sulfate) 2.5 Mg/3 Ml Neb 2.5 Mg INH Q8HR PRN 5 Days Vitamin C ER (Ascorbic Acid) 500 Mg Isabel 500 Mg PO Vitamin B-1 (Thiamine HCl) 100 Mg Tab 100 Mg PO DAILY Fleet Oil Enema (Mineral Oil) 118 Ml Enem 1 Ea RECTAL DIRECTED PRN Milk of Magnesia Liq (Magnesium Hydroxide) 400 Mg/5 Ml Susp 30 Ml PO DAILY PRN Zofran Odt (Ondansetron Odt) 4 Mg Tab 4 Mg SL Q6HR PRN Tylenol (Acetaminophen) 325 Mg Tab 650 Mg PO Q6H PRN Sulfamethoxazole-Trimethoprim 800-160 Mg Tab 1 Tab PO BID Culturelle (Lactobacillus Rhamnosus (GG)) 10 B Cell Cap 1 Cap PO DAILY Doxycycline Hyclate 100 Mg Cap 100 Mg PO DAILY Metoprolol Tartrate 50 Mg Tab 50 Mg PO BID Active Ordered Medications Current Medications Medications (Trade) Dose Ordered Sig/Jose Route Start Time Stop Time Status Last Admin (Sodium Bicarbonate 8.4% Inj/D5W 1000 ml Inj) 1,150 ml @ 100 mls/hr [id number] IV 02/14/17 16:00 02/15/17 02:49 (NS Flush) 2 ml UNSCH PRN IV FLUSH 02/14/17 15:15 (NS Flush) 2 ml BID IV FLUSH 02/14/17 21:00 02/15/17 08:46 (Peridex 0.12% Liq) 15 ml BID@08,20 MT 02/14/17 20:00 02/15/17 08:46 (Protonix Inj) 40 mg DAILY IV 02/14/17 16:00 02/15/17 08:45 (Heparin Inj) 5,000 units Q12H SQ 02/14/17 20:00 02/15/17 08:45 Miscellaneous Information 1 Q361D XX 02/14/17 15:15 (Chlorhexidine 2% Cloth) 3 pack Taper DAILY@04 TOP 02/15/17 04:00 02/11/18 03:59 02/15/17 04:00 Chlorhexidine Gluconate 3 pack 3 pack UNSCH PRN TOP 02/14/17 15:15 (Diprivan 1000 Mg/100ml Inj) 100 ml @ 0 mls/hr TITRATE IV 02/14/17 15:15 02/15/17 05:17 (NovoLOG SUPPLEMENTAL SCALE) 1 Q6HR SQ 02/14/17 18:00 02/15/17 06:23 (D50w (Vial) Inj) 25 ml UNSCH PRN IV PUSH 02/14/17 15:30 (Glucagon Inj) 1 mg UNSCH PRN OTHER 02/14/17 15:30 Dexamethasone Sodium Phosphate 4 mg 4 mg Q12HR IV PUSH 02/14/17 21:00 02/15/17 08:46 (Zosyn 2.25 Gm Premix) 50 ml @ 100 mls/hr Q6H IV 02/14/17 20:00 02/15/17 08:49 Miscellaneous Information Patient in critical care unit? Ass... Q361D .XX 02/14/17 18:15 02/15/17 05:17 (Chlorhexidine 2% Cloth) 3 pack DAILY@04 TOPICAL 02/15/17 04:00 02/19/17 04:01 02/15/17 04:00 (Chlorhexidine 2% Cloth) 3 pack UNSCH PRN TOPICAL 02/14/17 18:15 02/19/17 18:08 Acetaminophen 650 mg 650 mg Q6H PRN PO 02/14/17 19:15 02/14/17 22:04 (Levophed-Dextrose Drip) 250 ml @ 0 mls/hr TITRATE IV 02/15/17 02:45 02/15/17 02:49 (Brethine Inj) 1 mg UNSCH PRN SQ 02/15/17 02:45 Family History unable to obtain Social History unable to obtain he was residing in a local rehab (Radha Fernandez) Physical Exam Vital Signs Vital Signs Date Time Temp Pulse Resp B/P Pulse Ox O2 Delivery O2 Flow Rate FiO2 02/15/17 10:03 40 02/15/17 10:01 40 02/15/17 07:35 100 45 02/15/17 06:00 100 02/15/17 04:00 100 02/15/17 04:00 98.4 100 22 114/71 100 115/67 114/71 02/15/17 03:10 100 50 02/15/17 02:00 104 02/15/17 01:20 100 50 02/15/17 00:00 100.4 101 22 115/67 100 108/65 02/15/17 00:00 101 02/14/17 22:47 100 50 02/14/17 22:00 108 02/14/17 21:25 100 50 02/14/17 20:50 100 70 02/14/17 20:00 101.1 109 28 120/68 100 90/52 02/14/17 20:00 109 02/14/17 16:58 0 70 02/14/17 16:19 0 100 02/14/17 16:00 98 02/14/17 15:00 100 02/14/17 14:03 112 168/58 100 Ventilator 02/14/17 13:54 119 184/80 99 Ventilator 02/14/17 13:53 120 18 208/108 97 Nasal Cannula 3 02/14/17 13:45 94 100 02/14/17 12:39 92 24 107/55 97 Room Air 02/14/17 11:59 27 02/14/17 11:58 98 Room Air 02/14/17 11:49 97.8 93 26 98/62 98 Physical Exam Elderly male, intubated but awake tachycardic, ST, rate 120s, no murmurs lungs: clear, vented abdomen: round, soft Ext: no edema neuro: awake, follows commands, attempting to speak Lines: TLC right IJ, A line left , samaniego Laboratory Laboratory Tests Test 02/14/17 02/14/17 02/14/17 02/14/17 12:00 12:08 12:14 13:10 White Blood Count 17.7 Red Blood Count 2.53 Hemoglobin 7.7 Hematocrit 22.4 Mean Corpuscular Volume 88.8 Mean Corpuscular Hemoglobin 30.5 Mean Corpuscular Hemoglobin 34.3 Concent Red Cell Distribution Width 16.9 Platelet Count 391 Mean Platelet Volume 8.6 Neutrophils (%) (Auto) 59.9 Lymphocytes (%) (Auto) 26.8 Monocytes (%) (Auto) 11.0 Eosinophils (%) (Auto) 1.5 Basophils (%) (Auto) 0.8 Neutrophils # (Auto) 10.6 Lymphocytes # (Auto) 4.7 Monocytes # (Auto) 1.9 Eosinophils # (Auto) 0.3 Basophils # (Auto) 0.1 CBC Comment DIFF FINAL Differential Comment Prothrombin Time 14.0 Prothromb Time International 1.3 Ratio Activated Partial 36.8 Thromboplast Time Sodium Level 115 Potassium Level 6.2 Chloride Level 81 Carbon Dioxide Level 15.8 Anion Gap 18 Blood Urea Nitrogen 50 Creatinine 3.83 Estimat Glomerular Filtration 15 Rate Random Glucose 86 Calcium Level 9.6 Total Bilirubin 0.9 Aspartate Amino Transf 82 (AST/SGOT) Alanine Aminotransferase 79 (ALT/SGPT) Alkaline Phosphatase 266 Troponin I LESS THAN 0.02 Total Protein 7.4 Albumin 2.9 Thyroid Stimulating Hormone 8.090 3rd Gen Blood Gas Puncture Site LT BRACHIAL Blood Gas Patient Temperature 98.6 Blood Gas HCO3 16 Blood Gas Base Excess -8.1 Blood Gas Oxygen Saturation 97 Arterial Blood pH 7.37 Arterial Blood Partial 29 Pressure CO2 Arterial Blood Partial 127 Pressure O2 Arterial Blood Oxygen Content 11.0 Arterial Blood 1.7 Carboxyhemoglobin Arterial Blood Methemoglobin 0.4 Blood Gas Hemoglobin 7.9 Oxygen Delivery Device NASAL CANNULA Blood Gas Inspired Oxygen 4 Lactic Acid Level 6.2 Ammonia 20 Urine Color YELLOW Urine Turbidity CLEAR Urine pH 5.5 Urine Specific Joanna 1.013 Urine Protein 30 Urine Glucose (UA) NEG Urine Ketones NEG Urine Occult Blood NEG Urine Nitrite NEG Urine Bilirubin NEG Urine Urobilinogen LESS THAN 2.0 Urine Leukocyte Esterase NEG Urine RBC LESS THAN 1 Urine WBC 1 Urine Hyaline Casts 1 Urine Mucus FEW Microscopic Urinalysis Comment CATH-CULT NOT IND Test 02/14/17 02/14/17 02/14/17 02/14/17 13:51 14:10 15:40 16:00 Blood Type O NEGATIVE O NEGATIVE Antibody Screen NEGATIVE Crossmatch Leukocyte-Reduced Red Blood Cells Blood Bank Comment Blood Gas Puncture Site LT RADIAL Blood Gas Patient Temperature 98.6 Venous Blood pH 7.07 Venous Blood Partial Pressure 66 CO2 Venous Blood Partial Pressure 32 O2 Venous Blood HCO3 18 Venous Blood Oxygen Saturation 32 Venous Blood Oxygen Content 3.0 Venous Blood Base Excess -10.3 Oxygen Delivery Device VENT Blood Gas Ventilator Setting White Blood Count 18.9 Red Blood Count 2.01 Hemoglobin 6.3 Hematocrit 18.0 Mean Corpuscular Volume 89.3 Mean Corpuscular Hemoglobin 31.4 Mean Corpuscular Hemoglobin 35.2 Concent Red Cell Distribution Width 16.3 Platelet Count 283 Mean Platelet Volume 8.4 Activated Partial 32.5 Thromboplast Time Sodium Level 125 Potassium Level 5.1 Chloride Level 88 Carbon Dioxide Level 25.6 Anion Gap 11 Blood Urea Nitrogen 54 Creatinine 3.92 Estimat Glomerular Filtration 15 Rate Random Glucose 57 Lactic Acid Level 4.2 Calcium Level 8.9 Phosphorus Level 8.4 Magnesium Level 2.2 Total Bilirubin 0.6 Aspartate Amino Transf 408 (AST/SGOT) Alanine Aminotransferase 357 (ALT/SGPT) Alkaline Phosphatase 216 Total Creatine Kinase 303 Creatine Kinase MB 3.7 Troponin I 0.06 Total Protein 5.7 Albumin 2.4 Nasal Screen MRSA (PCR) MRSA NOT DETECTED Test 02/14/17 02/14/17 02/14/17 02/14/17 16:38 16:44 18:46 20:05 Crossmatch Leukocyte-Reduced Red Blood Cells Blood Bank Comment Blood Gas Puncture Site ART LINE ART LINE Blood Gas Patient Temperature 98.6 98.6 Blood Gas HCO3 21 18 Blood Gas Base Excess -6.0 -6.3 Blood Gas Oxygen Saturation 97 97 Arterial Blood pH 7.18 7.39 Arterial Blood Partial 59 30 Pressure CO2 Arterial Blood Partial 431 243 Pressure O2 Arterial Blood Oxygen Content 10.4 16.4 Arterial Blood 1.2 1.5 Carboxyhemoglobin Arterial Blood Methemoglobin 1.4 1.2 Blood Gas Hemoglobin 6.7 11.6 Oxygen Delivery Device VENTILATOR VENT Blood Gas Ventilator Setting AC/20/600/PEEP5 SEE COMMENTS Blood Gas Inspired Oxygen 100 70 Random Cortisol 4.4 Test 02/14/17 02/14/17 02/15/17 20:41 22:50 05:30 White Blood Count 17.0 13.6 Red Blood Count 3.10 2.94 Hemoglobin 9.3 8.9 Hematocrit 26.2 24.7 Mean Corpuscular Volume 84.5 83.7 Mean Corpuscular Hemoglobin 30.0 30.3 Mean Corpuscular Hemoglobin 35.5 36.2 Concent Red Cell Distribution Width 15.9 16.1 Platelet Count 291 285 Mean Platelet Volume 8.0 8.2 Sodium Level 121 124 Potassium Level 5.2 3.7 Chloride Level 86 85 Carbon Dioxide Level 19.4 22.9 Anion Gap 16 16 Blood Urea Nitrogen 52 49 Creatinine 3.85 3.70 Estimat Glomerular Filtration 15 16 Rate Random Glucose 132 342 Lactic Acid Level 1.0 Calcium Level 8.2 7.5 Total Bilirubin 1.0 0.7 Aspartate Amino Transf 755 735 (AST/SGOT) Alanine Aminotransferase 687 760 (ALT/SGPT) Alkaline Phosphatase 243 220 Total Creatine Kinase 2063 2118 Creatine Kinase MB 7.9 5.0 Creatine Kinase MB % 0.4 0.2 Troponin I 0.38 0.19 Total Protein 6.3 5.9 Albumin 2.8 2.4 Blood Gas Puncture Site ART LINE Blood Gas Patient Temperature 98.6 Blood Gas HCO3 18 Blood Gas Base Excess -5.9 Blood Gas Oxygen Saturation 97 Arterial Blood pH 7.43 Arterial Blood Partial 27 Pressure CO2 Arterial Blood Partial 203 Pressure O2 Arterial Blood Oxygen Content 19.4 Arterial Blood 1.4 Carboxyhemoglobin Arterial Blood Methemoglobin 1.2 Blood Gas Hemoglobin 13.9 Oxygen Delivery Device VENT Blood Gas Ventilator Setting SEE COMMENTS Blood Gas Inspired Oxygen 50 Neutrophils (%) (Auto) 95.9 Lymphocytes (%) (Auto) 2.5 Monocytes (%) (Auto) 1.5 Eosinophils (%) (Auto) 0.0 Basophils (%) (Auto) 0.1 Neutrophils # (Auto) 13.0 Lymphocytes # (Auto) 0.3 Monocytes # (Auto) 0.2 Eosinophils # (Auto) 0.0 Basophils # (Auto) 0.0 CBC Comment AUTO DIFF Differential Comment AUTO DIFF CONFIRMED Platelet Estimate NORMAL Platelet Morphology Comment ENLARGED Date/Time Procedure Status Source Growth 02/15/17 08:05 Gram Stain Received Sputum Endotracheal Pending 02/15/17 08:05 Sputum Culture Received Sputum Endotracheal Pending 02/14/17 12:14 Aerobic Blood Culture Received Blood Peripheral Pending 02/14/17 12:14 Anaerobic Blood Culture Received Blood Peripheral Pending (Radha Fernandez) Result Diagram: 02/15/17 0530 02/15/17 0530 Imaging Last Impressions Chest X-Ray 02/15/17 0600 Signed Impressions: Service Date/Time: Wednesday, February 15, 2017 04:23 - CONCLUSION: No change. Lungs remain reasonably clear. Santos Arce MD Head CT 02/14/17 1152 Signed Impressions: Service Date/Time: February 12:22 - CONCLUSION: 1. No acute intracranial abnormality. Flash Clinton MD Abdomen/Pelvis CT 02/14/17 0000 Signed Impressions: Service Date/Time: February 14:38 - CONCLUSION: 1. Mild gaseous distention of the cecum. 2. Very minimal right basilar effusion. 3. No focal abscess identified. 4. Minimal left inguinal hernia. Flash Clinton MD (Radha Fernandez) Assessment and Plan Problem List: (1) TIBURCIO (acute kidney injury) Plan: In a patient who had normal creatinine in early January (1.05), 1.3 at discharge January 2017 TIBURCIO likely due to hypoperfusion from sepsis, later suffered cardiac arrest. May have progressed to ATN he is making good amount of urine acidosis corrected, off bicarb drip, on IVF continue 0.9% NS UA without infection previously hyperkalemic, monitor for recurrence daily renal panel (2) Hyponatremia Plan: Improving he he is not hypervolemic, continue NS and monitor response check serum osmolality, urine sodium and osmolality (3) Acute hyperkalemia Plan: due to renal failure, improved monitor (4) Altered mental status Plan: improving, likely due to adrenal insufficiency, sepsis, hyponatremia continue to monitor, he is awake now (5) s/p adrenal hemrhage Plan: with suspected adrenal insufficiency after stopping prednisone continue Decadron BID (6) Elevated liver function tests Plan: suspected shock liver, monitor (7) DVT (deep venous thrombosis) Plan: s/p IVC filter (8) Sepsis Plan: positive blood cultures reported he was given vancomycin and zosyn (9) Anemia Plan: given 2 units PRBC hematology has been consulted (Radha Fernandez) Assessment and Plan patient was seen and examined. Notes were reviewed. TIBURCIO likely due to ATN. Patient likely presented with adrenal crisis. Now on Decadron. Hyponatremia and Hyperkalemia both have improved. Continue 0.9 % NS. He is off of antibiotics. ( Wilman Palma MD) Radha Fernandez Feb 15, 2017 10:34 Wilman Palma MD Feb 15, 2017 17:18
--- NOTE | 2017-02-15 11:01 | HHI.CCPN ---
Subjective Remarks/Hospital Course 02/14: 76-year-old Male. 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 Patient was found confused and altered by his roommate on 01/04. Was transferred to [facility]. CT abdomen and pelvis revealed a right-sided 3.6 x 2.5 cm left 2.5 bilateral adrenal hemorrhage. He was also diagnosed to have an ileus during that admission. He was evaluated by general surgery, GI who recommended medical management for ileus. He was also evaluated by Dr. Arauz from hematology and in view of bilateral adrenal hemorrhages he was felt to be too high risk for full anticoagulation hence an IVC filter was placed at the time due to his hypercoagulable state. He was positive for lupus anticoagulant and MTHFR gene mutation (heterozygous state). Patient was discharged on January 25, 2017 on a prednisone taper over 13 days which she completed around 02/08/2017. He was discharged to rehabilitation. Patient was not feeling well for the last week or so prior to current admission on 02/14 according to his sister whom I contacted by phone. He was sent to Dr. Trevino's office on 02/14 where he was noted to be confused and disoriented and hypotensive and she was sent to the ER. He had been noted to have a drop in hemoglobin at the rehabilitation a few days back. Patient was evaluated in the ER and was noted to have an altered mental status with sodium of 115, acute kidney injury with creatinine 3.83, potassium 6.2 and significant metabolic acidosis with bicarbonate of 15.8. His hemoglobin was 7 and white count was 17, 000. His systolic blood pressure was in the 70s initially. He received 2 L normal saline bolus was initiated on empiric vancomycin and Zosyn after obtaining blood cultures. While in the ER he became bradycardic and subsequently had an asystole for which CPR/ACLS protocol was initiated for about 15 minutes following which she had return of spontaneous circulation. He was intubated during the code and placed on mechanical ventilation. He was noted to have an elevated lactic acid of 6.2. He underwent CT of his abdomen and pelvis which was unremarkable. Head CT was negative for bleed. I evaluated patient after his arrival to the ICU from CAT scan. At that time he was orally intubated on mechanical ventilation appeared encephalopathic and not following commands. He did have his eyes open spontaneously at the time and was extremely tachypneic on mechanical ventilation due to his metabolic acidosis. I emergently placed a right subclavian central venous catheter as he was hypotensive requiring Levophed for pressor support. He had received 2 L normal saline bolus earlier and was being initiated on a bicarbonate drip. I also emergently placed a right axillary a line. History was obtained by reviewing records and discussion with patient's sister Karen Del Valle as well as ER physician. 02/15 Off levophed this morning. Remians orally intubated on mech vent. Awakens off sedation, following commands. Was started on decadron yesterday for suspected adrenal insufficiency, cortisol level check on 02/14 was 4.4 (very low considering degree of shock on arrival to ICU - was on levophed 20mcg/min). Blood culture with GPC in anaerobic bottle. Recieved 2 units of PRBCs for Hgb 6.6 following arrival to ICU on 02/14. No melena/ rectal bleeding since admission per d/w RN. Objective Vital Signs Date Time Temp Pulse Resp B/P Pulse Ox O2 Delivery O2 Flow Rate FiO2 02/15/17 10:03 40 02/15/17 10:00 113 02/15/17 08:00 98.5 17 135/86 100 135/75 135/86 02/14/17 14:03 Ventilator 02/14/17 13:53 3 Intake and Output 02/14/17 02/14/17 02/15/17 08:00 16:00 00:00 Intake Total 984 ml Output Total 1200 ml Balance -216 ml Result Diagram: 02/15/17 0530 02/15/17 0530 Other Results Laboratory Tests Test 02/14/17 02/14/17 02/14/17 02/14/17 12:00 12:08 12:14 13:10 White Blood Count 17.7 TH/MM3 Red Blood Count 2.53 MIL/MM3 Hemoglobin 7.7 GM/DL Hematocrit 22.4 % Mean Corpuscular Volume 88.8 FL Mean Corpuscular Hemoglobin 30.5 PG Mean Corpuscular Hemoglobin 34.3 % Concent Red Cell Distribution Width 16.9 % Platelet Count 391 TH/MM3 Mean Platelet Volume 8.6 FL Neutrophils (%) (Auto) 59.9 % Lymphocytes (%) (Auto) 26.8 % Monocytes (%) (Auto) 11.0 % Eosinophils (%) (Auto) 1.5 % Basophils (%) (Auto) 0.8 % Neutrophils # (Auto) 10.6 TH/MM3 Lymphocytes # (Auto) 4.7 TH/MM3 Monocytes # (Auto) 1.9 TH/MM3 Eosinophils # (Auto) 0.3 TH/MM3 Basophils # (Auto) 0.1 TH/MM3 CBC Comment DIFF FINAL Differential Comment Prothrombin Time 14.0 SEC Prothromb Time International 1.3 RATIO Ratio Activated Partial 36.8 SEC Thromboplast Time Sodium Level 115 MEQ/L Potassium Level 6.2 MEQ/L Chloride Level 81 MEQ/L Carbon Dioxide Level 15.8 MEQ/L Anion Gap 18 MEQ/L Blood Urea Nitrogen 50 MG/DL Creatinine 3.83 MG/DL Estimat Glomerular Filtration 15 ML/MIN Rate Random Glucose 86 MG/DL Calcium Level 9.6 MG/DL Total Bilirubin 0.9 MG/DL Aspartate Amino Transf 82 U/L (AST/SGOT) Alanine Aminotransferase 79 U/L (ALT/SGPT) Alkaline Phosphatase 266 U/L Troponin I LESS THAN 0.02 NG/ML Total Protein 7.4 GM/DL Albumin 2.9 GM/DL Thyroid Stimulating Hormone 8.090 uIU/ML 3rd Gen Blood Gas Puncture Site LT BRACHIAL Blood Gas Patient Temperature 98.6 Blood Gas HCO3 16 mmol/L Blood Gas Base Excess -8.1 mmol/L Blood Gas Oxygen Saturation 97 % Arterial Blood pH 7.37 Arterial Blood Partial 29 mmHg Pressure CO2 Arterial Blood Partial 127 mmHG Pressure O2 Arterial Blood Oxygen Content 11.0 Vol % Arterial Blood 1.7 % Carboxyhemoglobin Arterial Blood Methemoglobin 0.4 % Blood Gas Hemoglobin 7.9 G/DL Oxygen Delivery Device NASAL CANNULA Blood Gas Inspired Oxygen 4 % Lactic Acid Level 6.2 mmol/L Ammonia 20 MCMOL/L Urine Color YELLOW Urine Turbidity CLEAR Urine pH 5.5 Urine Specific [place] 1.013 Urine Protein 30 mg/dL Urine Glucose (UA) NEG mg/dL Urine Ketones NEG mg/dL Urine Occult Blood NEG Urine Nitrite NEG Urine Bilirubin NEG Urine Urobilinogen LESS THAN 2.0 MG/DL Urine Leukocyte Esterase NEG Urine RBC LESS THAN 1 /hpf Urine WBC 1 /hpf Urine Hyaline Casts 1 /lpf Urine Mucus FEW /lpf Microscopic Urinalysis Comment CATH-CULT NOT IND Test 02/14/17 02/14/17 02/14/17 02/14/17 13:51 14:10 15:40 16:00 Blood Type O NEGATIVE O NEGATIVE Antibody Screen NEGATIVE Crossmatch Leukocyte-Reduced Red Blood Cells Blood Bank Comment Blood Gas Puncture Site LT RADIAL Blood Gas Patient Temperature 98.6 Venous Blood pH 7.07 Venous Blood Partial Pressure 66 mmHg CO2 Venous Blood Partial Pressure 32 mmHg O2 Venous Blood HCO3 18 mmol/L Venous Blood Oxygen Saturation 32 % Venous Blood Oxygen Content 3.0 Vol % Venous Blood Base Excess -10.3 mmol/L Oxygen Delivery Device VENT Blood Gas Ventilator Setting White Blood Count 18.9 TH/MM3 Red Blood Count 2.01 MIL/MM3 Hemoglobin 6.3 GM/DL Hematocrit 18.0 % Mean Corpuscular Volume 89.3 FL Mean Corpuscular Hemoglobin 31.4 PG Mean Corpuscular Hemoglobin 35.2 % Concent Red Cell Distribution Width 16.3 % Platelet Count 283 TH/MM3 Mean Platelet Volume 8.4 FL Activated Partial 32.5 SEC Thromboplast Time Sodium Level 125 MEQ/L Potassium Level 5.1 MEQ/L Chloride Level 88 MEQ/L Carbon Dioxide Level 25.6 MEQ/L Anion Gap 11 MEQ/L Blood Urea Nitrogen 54 MG/DL Creatinine 3.92 MG/DL Estimat Glomerular Filtration 15 ML/MIN Rate Random Glucose 57 MG/DL Lactic Acid Level 4.2 mmol/L Calcium Level 8.9 MG/DL Phosphorus Level 8.4 MG/DL Magnesium Level 2.2 MG/DL Total Bilirubin 0.6 MG/DL Aspartate Amino Transf 408 U/L (AST/SGOT) Alanine Aminotransferase 357 U/L (ALT/SGPT) Alkaline Phosphatase 216 U/L Total Creatine Kinase 303 U/L Creatine Kinase MB 3.7 NG/ML Troponin I 0.06 NG/ML Total Protein 5.7 GM/DL Albumin 2.4 GM/DL Nasal Screen MRSA (PCR) MRSA NOT DETECTED Test 02/14/17 02/14/17 02/14/17 02/14/17 16:38 16:44 18:46 20:05 Crossmatch Leukocyte-Reduced Red Blood Cells Blood Bank Comment Blood Gas Puncture Site ART LINE ART LINE Blood Gas Patient Temperature 98.6 98.6 Blood Gas HCO3 21 mmol/L 18 mmol/L Blood Gas Base Excess -6.0 mmol/L -6.3 mmol/L Blood Gas Oxygen Saturation 97 % 97 % Arterial Blood pH 7.18 7.39 Arterial Blood Partial 59 mmHg 30 mmHg Pressure CO2 Arterial Blood Partial 431 mmHg 243 mmHg Pressure O2 Arterial Blood Oxygen Content 10.4 Vol % 16.4 Vol % Arterial Blood 1.2 % 1.5 % Carboxyhemoglobin Arterial Blood Methemoglobin 1.4 % 1.2 % Blood Gas Hemoglobin 6.7 G/DL 11.6 G/DL Oxygen Delivery Device VENTILATOR VENT Blood Gas Ventilator Setting AC/20/600/PEEP5 SEE COMMENTS Blood Gas Inspired Oxygen 100 % 70 % Random Cortisol 4.4 MCG/DL Test 02/14/17 02/14/17 02/15/17 20:41 22:50 05:30 White Blood Count 17.0 TH/MM3 13.6 TH/MM3 Red Blood Count 3.10 MIL/MM3 2.94 MIL/MM3 Hemoglobin 9.3 GM/DL 8.9 GM/DL Hematocrit 26.2 % 24.7 % Mean Corpuscular Volume 84.5 FL 83.7 FL Mean Corpuscular Hemoglobin 30.0 PG 30.3 PG Mean Corpuscular Hemoglobin 35.5 % 36.2 % Concent Red Cell Distribution Width 15.9 % 16.1 % Platelet Count 291 TH/MM3 285 TH/MM3 Mean Platelet Volume 8.0 FL 8.2 FL Sodium Level 121 MEQ/L 124 MEQ/L Potassium Level 5.2 MEQ/L 3.7 MEQ/L Chloride Level 86 MEQ/L 85 MEQ/L Carbon Dioxide Level 19.4 MEQ/L 22.9 MEQ/L Anion Gap 16 MEQ/L 16 MEQ/L Blood Urea Nitrogen 52 MG/DL 49 MG/DL Creatinine 3.85 MG/DL 3.70 MG/DL Estimat Glomerular Filtration 15 ML/MIN 16 ML/MIN Rate Random Glucose 132 MG/DL 342 MG/DL Lactic Acid Level 1.0 mmol/L Calcium Level 8.2 MG/DL 7.5 MG/DL Total Bilirubin 1.0 MG/DL 0.7 MG/DL Aspartate Amino Transf 755 U/L 735 U/L (AST/SGOT) Alanine Aminotransferase 687 U/L 760 U/L (ALT/SGPT) Alkaline Phosphatase 243 U/L 220 U/L Total Creatine Kinase 2063 U/L 2118 U/L Creatine Kinase MB 7.9 NG/ML 5.0 NG/ML Creatine Kinase MB % 0.4 % 0.2 % Troponin I 0.38 NG/ML 0.19 NG/ML Total Protein 6.3 GM/DL 5.9 GM/DL Albumin 2.8 GM/DL 2.4 GM/DL Blood Gas Puncture Site ART LINE Blood Gas Patient Temperature 98.6 Blood Gas HCO3 18 mmol/L Blood Gas Base Excess -5.9 mmol/L Blood Gas Oxygen Saturation 97 % Arterial Blood pH 7.43 Arterial Blood Partial 27 mmHg Pressure CO2 Arterial Blood Partial 203 mmHg Pressure O2 Arterial Blood Oxygen Content 19.4 Vol % Arterial Blood 1.4 % Carboxyhemoglobin Arterial Blood Methemoglobin 1.2 % Blood Gas Hemoglobin 13.9 G/DL Oxygen Delivery Device VENT Blood Gas Ventilator Setting SEE COMMENTS Blood Gas Inspired Oxygen 50 % Neutrophils (%) (Auto) 95.9 % Lymphocytes (%) (Auto) 2.5 % Monocytes (%) (Auto) 1.5 % Eosinophils (%) (Auto) 0.0 % Basophils (%) (Auto) 0.1 % Neutrophils # (Auto) 13.0 TH/MM3 Lymphocytes # (Auto) 0.3 TH/MM3 Monocytes # (Auto) 0.2 TH/MM3 Eosinophils # (Auto) 0.0 TH/MM3 Basophils # (Auto) 0.0 TH/MM3 CBC Comment AUTO DIFF Differential Comment AUTO DIFF CONFIRMED Platelet Estimate NORMAL Platelet Morphology Comment ENLARGED Imaging Last Impressions Chest X-Ray 02/15/17 0600 Signed Impressions: Service Date/Time: Wednesday, February 15, 2017 04:23 - CONCLUSION: No change. Lungs remain reasonably clear. Santos Arce MD Head CT 02/14/17 1152 Signed Impressions: Service Date/Time: February 12:22 - CONCLUSION: 1. No acute intracranial abnormality. Flash Clinton MD Abdomen/Pelvis CT 02/14/17 0000 Signed Impressions: Service Date/Time: February 14:38 - CONCLUSION: 1. Mild gaseous distention of the cecum. 2. Very minimal right basilar effusion. 3. No focal abscess identified. 4. Minimal left inguinal hernia. Flash Clinton MD Objective Remarks HEENT/ Neuro: Encephalopathic, has spontaneous eye opening however not following commands, orally intubated, Pallor present, no icterus, tongue/ mucosa dry Neck: No JVD Chest/Pulm: on mech vent, good air entry bilaterally, no wheezing or crackles CVS: S1-S2 regular, no murmur GI/abdomen: soft, nontender, bowel sounds sluggish Extremities: warm bilaterally, no edema A/P Assessment and Plan 76-year-old male with: Hyponatremia Hyperkalemia (resolved) Encephalopathy Cardiac arrest status post CPR Metabolic acidosis Hypotension - multifactorial sec to severe anemia, adrenal insufficiency and possible sepsis Adrenal insufficiency Lactic acidosis Acute kidney injury Acute respiratory failure on mechanical ventilation Anemia History of DVT status post IVC filter History of bilateral adrenal hemorrhages History of COPD Lupus anticoagulant positive Possible sepsis GPC bacteremia Plan: Neuro: Follow neuro status. Propofol for sedation as needed. Cardiovascular: Aggressive fluid resuscitation. Patient has received 2 L normal saline. Initiated bicarbonate drip. 2 units PRBCs to be transfused stat. Levophed for pressor support - just turned off on 02/15 AM. Trend CVP and lactic acid. Pulmonary: On mechanical ventilation, vent bundle, bronchi dilators as needed. CPAP trials and if tolerated will plan extubation GI/liver: Nothing by mouth for now. NG tube to low intermittent wall suction. CT abdomen pelvis unremarkable. Renal/: IV hydration, strict intake output, monitor and replete electro lites , follow BUN/creatinine. Hyponatremia noted. Follow serial sodiums. Initially received normal saline in the ER which was switched to a bicarbonate drip due to metabolic acidosis which is corrected. Switch IVF to NS @ 75cc/hr ID: Follow-up cultures. Received IV vancomycin/Zosyn in the ER. Empiric antibiotic coverage with IV Zosyn to be continued. GPC in blood. Will consult ID for suspected sepsis/ GPC bacteremia Endocrine: Patient has a history of bilateral adrenal hemorrhages in last hospitalization and was discharged on prednisone which she completed around . In view of hyponatremia and severe metabolic acidosis concern for adrenal insufficiency. Cortisol level 4.4 - low for degree of shock on presentation. Initiated Decadron 4 mg IV stat and then every 12 hourly on 02/15. Will switch to hydrocortisone 50mg IV Q6hrly on 02/15 Heme: Follow CBC and coags. 2 units PRBCs transfused on 02/14. Patient does have a hypercoagulable state with lupus anticoagulant positivity and DVT. Off anticoagulation currently due to drop in hemoglobin. We'll consult hematology tomorrow to decide regarding anticoagulation. Patient does have an IVC filter in place. Prophylaxis: PPI/SCDs/ subcutaneous heparin as pt high risk for DVT/ PE. Access: Right subclavian central line placed and 6/8. Right axillary a line placed 6/8 Condition critical. Spoke with patient's sister Karen Del Valle at [phone]. I updated her regarding patient's critical condition and cardiac arrest in the ER and she voiced understanding. She wishes to continue aggressive care for now however and event of another cardiac arrest she does not want CPR and agrees with the DNR status. Will readdress code status with patient once he is extubated. Time spent on critical care excluding procedures: 40 minutes Kwasi Chahal MD Feb 15, 2017 11:01
--- NOTE | 2017-02-15 11:25 | HHI.PR ---
Addendum to Inpatient Note Addendum Reason: Additional Documentation Additional Information Patient extubated following CPAP trial. He is awake, alert, comfortable on nasal cannula. He wishes to be a full code at this time per my discussion with him. Code status changed to full code status. Kwasi Chahal MD Feb 15, 2017 11:25
[2017-02-15] MEDS: SODIUM CHLOR 0.9% 1000 ML INJ 1,000 ML IV SCH ×2 (11:32→18:53)
[2017-02-15] MEDS: HYDROCORTISONE SOD SUCCINATE 100 MG VIAL IV PUSH SCH ×3 (11:32→22:57)
--- NOTE | 2017-02-15 14:12 | PD.CONS ---
History of Present Illness Service Infectious Disease Consult Requested By Dr Devendra Chahal Reason for Consult Evaluate patient with sepsis, has positive blood cultures Primary Care Physician No Primary Care Physician Diagnoses: History of Present Illness Patient seen and examined. Records reviewed. Patient is a 76-year-old male, percent to the hospital complaining of not feeling well for the last week. Patient was taken to his primary care's office and he was noted to be confused and disoriented, and had low blood pressure. He was taken to the hospital and evaluation revealed a very low sodium of 1:15, and creatinine of 3+. Patient also apparently had a low hemoglobin on a CBC done in the rehabilitation facility. While in the ED, patient coded, and was successfully resuscitated. He was on the vent, and was on pressors. Patient was started on steroids for adrenal crisis. 1 of the 2 blood cultures done in the emergency room is now reported as growing staph epidermidis. Patient's chest x-ray was normal. CT of the abdomen and pelvis was unremarkable. His urinalysis is unremarkable. Patient was successfully extubated, and currently on nasal O2. He is complaining of some chest discomfort. Denies any significant congestion. Has not had any nausea or vomiting. No abdominal pain. He had some fevers on admission, none reported from the long-term, and patient has been afebrile today. His history significant for a recent admission from January 04 up to January 25. At that time he was found confused, and admitted at [facility]. He had evidence of bilateral adrenal hemorrhage, also had some ileus, as well as a nonocclusive thrombus in his right lower extremity. He was felt to be high risk for hemorrhage, so an IVC filter was placed during that admission. He was positive for lupus anticoagulant, and MTHFR gene mutation, heterozygous state. He was discharged on prednisone tapered over 13 days, and it was apparently completed around February 08. Patient has been in the rehabilitation facility since he was discharged from the hospital January 25. Infectious disease consultation has been requested to evaluate the patient with positive blood culture. Review of Systems Constitutional: COMPLAINS OF: Fever, DENIES: Chills, Night Sweats Eyes: DENIES: Eye pain Ears, nose, mouth, throat: DENIES: Nasal discharge, Oral lesions, Throat pain, Ear Pain, Toothache Respiratory: DENIES: Cough, Wheezing, Sputum production, Shortness of breath Cardiovascular: COMPLAINS OF: Chest pain, DENIES: Palpitations, Syncope Gastrointestinal: DENIES: Abdominal pain, Diarrhea, Nausea, Vomiting, Difficulty Swallowing Musculoskeletal: DENIES: Joint pain, Back pain Integumentary: DENIES: Rash Neurologic: DENIES: Headache Psychiatric: COMPLAINS OF: Confusion Past Family Social History Allergies: Coded Allergies: No Known Allergies (Unverified , 02/14/17) Past Medical History HTN Hx DVT in right lower extremity Depression Anxiety Chronic Right Lower Extremity Wound in the Medial Aspect of His Right Ankle bilateral adrenal hemorrhages IVC filter placement recently. Past Surgical History IVC filter placement Right lower extremity vein stripping Vasectomy Hernia repair Active Ordered Medications Tylenol Albuterol Heparin Solu-Cortef Insulin Protonix Zosyn Vanco x 1 dose 02/14 Social History Came from the rehabilitation Drinks alcohol at least twice a week No smoking No illicit drugs Physical Exam Vital Signs Vital Signs Date Time Temp Pulse Resp B/P Pulse Ox O2 Delivery O2 Flow Rate FiO2 02/15/17 12:00 114 02/15/17 12:00 98.6 114 0 116/66 99 112/73 02/15/17 10:45 99 Nasal Cannula 4.00 02/15/17 10:40 100 Nasal Cannula 4 02/15/17 10:03 40 02/15/17 10:01 40 02/15/17 10:00 113 02/15/17 09:55 100 40 02/15/17 09:55 Nasal Cannula 40 02/15/17 08:00 98.5 115 17 135/86 100 135/75 135/86 02/15/17 08:00 115 02/15/17 07:35 100 45 02/15/17 06:00 100 02/15/17 04:00 100 02/15/17 04:00 98.4 100 22 114/71 100 115/67 114/71 02/15/17 03:10 100 50 02/15/17 02:00 104 02/15/17 01:20 100 50 02/15/17 00:00 100.4 101 22 115/67 100 108/65 02/15/17 00:00 101 02/14/17 22:47 100 50 02/14/17 22:00 108 02/14/17 21:25 100 50 02/14/17 20:50 100 70 02/14/17 20:00 101.1 109 28 120/68 100 90/52 02/14/17 20:00 109 02/14/17 16:58 0 70 02/14/17 16:19 0 100 02/14/17 16:00 98 02/14/17 15:00 100 Physical Exam GENERAL: Patient is a well-nourished, well-developed CM, awake and alert, but seems to have some difficulty remembering events, not in respiratory distress. SKIN: Warm and dry. Has scattered hypopigmented macules scattered in both UE, upper chest and a few in the LE EYES: [place] conjunctiva. No petechia or hemorrhage. Pupils equal, round and reactive to light. Extraocular movements full and intact. No scleral icterus. No injection or drainage. EARS, NOSE AND THROAT: Nose without bleeding or purulent nasal discharge. No sinus tenderness. Mucous membranes pink and moist. No oral lesions noted. No exudate. No oral thrush. NECK: Trachea midline. Supple and not tender, no meningeal signs CARDIOVASCULAR: Tachycardic, regular rate and rhythm. No murmurs, rubs or gallops heard RESPIRATORY: Clear to auscultation. Breath sounds equal bilaterally. No rales , wheezing or rhonchi ABDOMEN: Soft, non-tender, nondistended. Bowel sounds present and normoactive. No guarding. No rebound. No organomegaly. EXTREMITIES: No clubbing, cyanosis, or edema.No joint effusion, has good ROM. No calf tenderness. Well perfused and warm. Wound R ankle, with no evidence of infection. No evidence of phlebitis in both UE from previous lines NEUROLOGICAL: Awake and alert. Cranial nerves grossly intact. Motor grossly within normal limits. PSYCHIATRIC: Normal affect, calm and cooperative. LINE: RSC TLC and R axillary [place] with no evidence of infection : Parada cath in place with no evidence of infection Laboratory Laboratory Tests Test 02/14/17 02/14/17 02/14/17 02/14/17 14:10 15:40 16:00 16:38 Blood Gas Puncture Site LT RADIAL Blood Gas Patient Temperature 98.6 Venous Blood pH 7.07 Venous Blood Partial Pressure 66 CO2 Venous Blood Partial Pressure 32 O2 Venous Blood HCO3 18 Venous Blood Oxygen Saturation 32 Venous Blood Oxygen Content 3.0 Venous Blood Base Excess -10.3 Oxygen Delivery Device VENT Blood Gas Ventilator Setting White Blood Count 18.9 Red Blood Count 2.01 Hemoglobin 6.3 Hematocrit 18.0 Mean Corpuscular Volume 89.3 Mean Corpuscular Hemoglobin 31.4 Mean Corpuscular Hemoglobin 35.2 Concent Red Cell Distribution Width 16.3 Platelet Count 283 Mean Platelet Volume 8.4 Activated Partial 32.5 Thromboplast Time Sodium Level 125 Potassium Level 5.1 Chloride Level 88 Carbon Dioxide Level 25.6 Anion Gap 11 Blood Urea Nitrogen 54 Creatinine 3.92 Estimat Glomerular Filtration 15 Rate Random Glucose 57 Lactic Acid Level 4.2 Calcium Level 8.9 Phosphorus Level 8.4 Magnesium Level 2.2 Total Bilirubin 0.6 Aspartate Amino Transf 408 (AST/SGOT) Alanine Aminotransferase 357 (ALT/SGPT) Alkaline Phosphatase 216 Total Creatine Kinase 303 Creatine Kinase MB 3.7 Troponin I 0.06 Total Protein 5.7 Albumin 2.4 Blood Type O NEGATIVE Nasal Screen MRSA (PCR) MRSA NOT DETECTED Crossmatch Leukocyte-Reduced Red Blood Cells Blood Bank Comment Test 02/14/17 02/14/17 02/14/17 02/14/17 16:44 18:46 20:05 20:41 Blood Gas Puncture Site ART LINE ART LINE Blood Gas Patient Temperature 98.6 98.6 Blood Gas HCO3 21 18 Blood Gas Base Excess -6.0 -6.3 Blood Gas Oxygen Saturation 97 97 Arterial Blood pH 7.18 7.39 Arterial Blood Partial 59 30 Pressure CO2 Arterial Blood Partial 431 243 Pressure O2 Arterial Blood Oxygen Content 10.4 16.4 Arterial Blood 1.2 1.5 Carboxyhemoglobin Arterial Blood Methemoglobin 1.4 1.2 Blood Gas Hemoglobin 6.7 11.6 Oxygen Delivery Device VENTILATOR VENT Blood Gas Ventilator Setting AC/20/600/PEEP5 SEE COMMENTS Blood Gas Inspired Oxygen 100 70 Random Cortisol 4.4 White Blood Count 17.0 Red Blood Count 3.10 Hemoglobin 9.3 Hematocrit 26.2 Mean Corpuscular Volume 84.5 Mean Corpuscular Hemoglobin 30.0 Mean Corpuscular Hemoglobin 35.5 Concent Red Cell Distribution Width 15.9 Platelet Count 291 Mean Platelet Volume 8.0 Sodium Level 121 Potassium Level 5.2 Chloride Level 86 Carbon Dioxide Level 19.4 Anion Gap 16 Blood Urea Nitrogen 52 Creatinine 3.85 Estimat Glomerular Filtration 15 Rate Random Glucose 132 Lactic Acid Level 1.0 Calcium Level 8.2 Total Bilirubin 1.0 Aspartate Amino Transf 755 (AST/SGOT) Alanine Aminotransferase 687 (ALT/SGPT) Alkaline Phosphatase 243 Total Creatine Kinase 2063 Creatine Kinase MB 7.9 Creatine Kinase MB % 0.4 Troponin I 0.38 Total Protein 6.3 Albumin 2.8 Test 02/14/17 02/15/17 02/15/17 22:50 05:30 11:55 Blood Gas Puncture Site ART LINE Blood Gas Patient Temperature 98.6 Blood Gas HCO3 18 Blood Gas Base Excess -5.9 Blood Gas Oxygen Saturation 97 Arterial Blood pH 7.43 Arterial Blood Partial 27 Pressure CO2 Arterial Blood Partial 203 Pressure O2 Arterial Blood Oxygen Content 19.4 Arterial Blood 1.4 Carboxyhemoglobin Arterial Blood Methemoglobin 1.2 Blood Gas Hemoglobin 13.9 Oxygen Delivery Device VENT Blood Gas Ventilator Setting SEE COMMENTS Blood Gas Inspired Oxygen 50 White Blood Count 13.6 Red Blood Count 2.94 Hemoglobin 8.9 Hematocrit 24.7 Mean Corpuscular Volume 83.7 Mean Corpuscular Hemoglobin 30.3 Mean Corpuscular Hemoglobin 36.2 Concent Red Cell Distribution Width 16.1 Platelet Count 285 Mean Platelet Volume 8.2 Neutrophils (%) (Auto) 95.9 Lymphocytes (%) (Auto) 2.5 Monocytes (%) (Auto) 1.5 Eosinophils (%) (Auto) 0.0 Basophils (%) (Auto) 0.1 Neutrophils # (Auto) 13.0 Lymphocytes # (Auto) 0.3 Monocytes # (Auto) 0.2 Eosinophils # (Auto) 0.0 Basophils # (Auto) 0.0 CBC Comment AUTO DIFF Differential Comment AUTO DIFF CONFIRMED Platelet Estimate NORMAL Platelet Morphology Comment ENLARGED Sodium Level 124 Potassium Level 3.7 Chloride Level 85 Carbon Dioxide Level 22.9 Anion Gap 16 Blood Urea Nitrogen 49 Creatinine 3.70 Estimat Glomerular Filtration 16 Rate Random Glucose 342 Calcium Level 7.5 Total Bilirubin 0.7 Aspartate Amino Transf 735 (AST/SGOT) Alanine Aminotransferase 760 (ALT/SGPT) Alkaline Phosphatase 220 Total Creatine Kinase 2118 Creatine Kinase MB 5.0 Creatine Kinase MB % 0.2 Troponin I 0.19 Total Protein 5.9 Albumin 2.4 Serum Osmolality 289 Date/Time Procedure Status Source Growth 02/15/17 08:05 Gram Stain - Final Resulted Sputum Endotracheal 02/15/17 08:05 Sputum Culture Resulted Sputum Endotracheal Pending 02/14/17 12:14 Aerobic Blood Culture - Preliminary Resulted Blood Peripheral NO GROWTH IN 1 DAY 02/14/17 12:14 Anaerobic Blood Culture - Preliminary Resulted Blood Peripheral NO GROWTH IN 1 DAY Result Diagram: 02/15/17 0530 02/15/17 0530 Imaging RADIOLOGY STUDIES/FILMS REVIEWED Chest X-Ray 02/15/17 0600 Signed Impressions: Service Date/Time: Wednesday, February 15, 2017 04:23 - CONCLUSION: No change. Lungs remain reasonably clear. Santos Arce MD Head CT 02/14/17 1152 Signed Impressions: Service Date/Time: February 12:22 - CONCLUSION: 1. No acute intracranial abnormality. Flash Clinton MD Abdomen/Pelvis CT 02/14/17 0000 Signed Impressions: Service Date/Time: , February 14, 2017 14:38 - CONCLUSION: 1. Mild gaseous distention of the cecum. 2. Very minimal right basilar effusion. 3. No focal abscess identified. 4. Minimal left inguinal hernia. Flash Clinton MD Assessment and Plan Assessment and Plan IMPRESSION Confusion due to severe hyponatremia, better, but still low 124, came in 115 Hypotension likely due to adrenal crisis, improved, off pressors, on solucortef Fevers last night, source? - afebrile today - CXR negative, no PNA symptoms - UA ok - CT A/P ok - One BC with Staph epi likely contaminant, has no lines when he came in Has lupus anticoagulant - had DVT RLE and fred adrenal hemorrhage during last admission - has IVC filter in place, felt to be high risk for anticoagulation tx Renal insufficiency due to dehydration, hypotension S/P arrest due to hypotension from adrenal crisis RECOMMENDATION Repeat 2 BC today Stop Zosyn - no obvious source; seems all symptoms due to adrenal crisis He got dose of Vanco yesterday, and I will hold off of any further Vanco Follow C/S Monitor progress Will determine need for further Abx depending on his clinical course I will follow along with you Thank you for this consultation Discussed Condition With D/W Joselyn Emerson MD Feb 15, 2017 14:12
--- NOTE | 2017-02-15 17:45 | EKG ---
Date Performed: 02/14/2017 Time Performed: 18:05:23 PTAGE: 76 years EKG: SINUS TACHYCARDIA MARKED LEFT AXIS DEVIATION ANTEROSEPTAL MYOCARDIAL INFARCTION OF INDETERM INATE AGE ABNORMAL ECG PREVIOUS TRACING : 02/14/2017 12.01 Compared to prior tracing no significant change DOCTOR: Bhanu Marte Interpretating Date/Time 02/15/2017 17:45:17
--- NOTE | 2017-02-15 17:57 | EKG ---
Date Performed: 02/14/2017 Time Performed: 12:01:35 PTAGE: 76 years EKG: Sinus rhythm SEPTAL MYOCARDIAL INFARCTION ABNORMAL ECG PREVIOUS TRACING : 01/08/2017 00.26 Compared to the previous tracing a fib no longer present DOCTOR: Bhanu Marte Interpretating Date/Time 02/15/2017 17:56:20
[2017-02-15] MEDS ORDERED: DEXTROSE 50% IN WATER 50 ML VIAL(D50) IV PRN (18:15)
[2017-02-15] MEDS ORDERED: GLUCAGON 1 MG/ML VIAL IM/SQ PRN (18:15)
--- NOTE | 2017-02-15 20:31 | PD.WCN.NOT ---
Wound Consult Description: Wound Care consulted for right calf per Dr Chahal Communicated with: Citlaly Mendes,RN Recommendation: Recommend to apply to right medial lower leg wounds: Oil emulsion daily to open wounds, cover with 4x4, and secure with rolled gauze. Wounds measuring 2cm x 2cm x <0.1cm on right medial lower leg and distally to this wound is another wound measuring 2.5cm x 2cm x <0.1cm. Additional Information: Wounds appear to be vascular and are closing with red tissue noted throughout wound bed with periwound discoloration. [facility] Feb 15, 2017 20:30
--- NOTE | 2017-02-15 23:14 | MB ---
cc: JAZMYN CARRENO DATE OF CONSULTATION 02/15/17 DATE OF 1940 REASON FOR CONSULTATION The patient with a history of DVT and lupus anticoagulant with history of adrenal hemorrhages. CHIEF COMPLAINT The patient was admitted with severe sepsis, altered mental status and he decompensated and was admitted to the NICU. HISTORY OF PRESENT ILLNESS Mr. Wilkins is a 76-year-old male with a history of DVT with lupus anticoagulant and history of adrenal hemorrhages who presented to the emergency room with confusion and altered mental status. He was found to be disoriented and hypotensive in the emergency department. He was hyponatremic with a sodium of 115 and he was in acute kidney failure with a creatinine of 3.83. He was hyperkalemic and had metabolic acidosis. His hemoglobin was seven and he had leukocytosis of 17. The patient was aggressively resuscitated with IV fluids and IV antibiotics were started. While in the emergency room, he became bradycardic and he subsequently asystole. He underwent CPR ACLS protocol for about 15 minutes and he had return of spontaneous circulation. He was intubated and placed on mechanical ventilation. The patient was transfused two units of packed red blood cells. Fortunately, the patient has significantly improved since his admission. He was extubated following C-PAP trial today and he is currently awake and alert and is on nasal cannula. On this admission, the patient had a CT of the head which did not show any acute intracranial abnormality. He also had a CT of the abdomen and pelvis which did not reveal any presence of adrenal hemorrhages. There was mild gaseous distension of cecum, very minimal right basilar effusion. I have been consulted to make further recommendations in this patient who has had history of DVT with lupus anticoagulant. On his last admission, he was found to have bilateral adrenal hemorrhages based on the CT scan. The right-sided hemorrhage was 3.6 x 2.5 cm and the left-sided was 2.5. Full anticoagulation was not pursued and an IVC filter was placed. It is unclear whether his acute decompensation was related to sepsis versus adrenal crises. The latter seems to be more likely. REVIEW OF SYSTEMS A comprehensive 14-point review of systems was completed which is negative except as described in the HPI. PAST MEDICAL HISTORY 1. History of DVT in the right lower extremity 2. Hypertension, 3. Depression, 4. Anxiety, 5. Chronic right lower extremity wound in the medial aspect of the right ankle 6. History of bilateral adrenal hemorrhages 7. Presence of IVC filter PAST SURGICAL HISTORY 1. IVC filter present 2. Right lower extremity vein stripping 3. Vasectomy 4. Hernia repair. SOCIAL HISTORY He denies cigarette smoking. No alcohol abuse. No illicit drug use. FAMILY HISTORY Family history was reviewed and noncontributory to this admission. MEDICATIONS 1. Sliding-scale insulin 2. Solu-Cortef 50 mg IV q.6 h 3. Norepinephrine drip, 4. Heparin 5000 units q.12 h 5. Tylenol 650 p.o. q.6 h p.r.n. 6. Duonebs one ampule q.6 h p.r.n. 7. Pantoprazole 40 mg IV daily. ALLERGIES NO KNOWN DRUG ALLERGIES. PHYSICAL EXAMINATION VITAL SIGNS: Blood pressure is 119/76, pulse is in the 90s, temperature is 98.7, O2 sats are 100% on 2 liters nasal cannula. GENERAL: Acutely ill patient in no apparent distress. HEENT: Pupils are equal, round, reactive to light. EOMI. No oral thrush. No oral lesions. NECK: Supple, no JVD, no bruits. No lymphadenopathy. CHEST: Clear to auscultation bilaterally. CARDIAC: S1-S2 regular rate and rhythm. ABDOMEN: Soft, nontender, nondistended. Bowel sounds are present. EXTREMITIES: Without any edema, erythema or cyanosis. SKIN: Without any petechiae, lesion or bruises. NEUROLOGIC: No focal deficits. PSYCHIATRIC: Mood and affect is appropriate. He has right TLC and right axillary a line. LABORATORY DATA WBCs 13.6, hemoglobin is 8.9, platelet count is 285. Serum chemistries show sodium 124, potassium of 3.7, CO2 22.9, BUN is 49, creatinine is 3.7, total bilirubin is 0.7, AST 735, ALT is 760, alk phos is 220, total protein is 5.9, albumin is 2.4. ASSESSMENT/PLAN This is a 76-year-old male with a past medical history of DVT and presence of lupus anticoagulant, history of bilateral adrenal hemorrhages, status post IVC filter who presented with altered mental status, hypotension, hyponatremia, multiorgan failure and decompensated and had an asystole. He underwent CPR/ACLS and was revived. Subsequently, he was intubated. He has improved and was extubated today. I have been consulted to make recommendations in this patient who has a history of right lower extremity DVT with a lupus anticoagulant. 1. Right lower extremity DVT which appeared to be acute on chronic based on the ultrasound on his last visit. He had bilateral adrenal hemorrhages and he was not placed on long-term anticoagulation and IVC filter was placed. On review of imaging from this admission, the bilateral adrenal hemorrhages have disappeared. He has IVC filter in place. He is still at risk for further expansion of DVT in the lower extremity. He also has a history of atrial fibrillation. I would recommend starting this patient on heparin GTT. We will transition him to Coumadin if his hemoglobin remains stable. 2. Acute anemia. We need to rule out any underlying GI bleeding. I would recommend obtaining a stool hemoccult, check LDH and haptoglobin and direct John test. Monitor hemoglobin closely. Thank you for allowing me to participate in the care of this patient. We will continue to follow this patient along. MD KIARA Mendes/ /10:12 PM /10:42 PM
[2017-02-15 23:52] LABS: BICARBONATE 25.5 MEQ/L (21.0-32.0); POTASSIUM 3.5 MEQ/L (3.5-5.1)
[2017-02-16] VITALS (14 sets, daily range): BP systolic 112–149; BP diastolic 58–85; PULSE 104–125; RESP 18–29; TEMP 98.2–98.9; O2SAT 93–98
[2017-02-16] MEDS: RESP: ALBUTEROL 2.5 MG/IPRATROPIUM 0.5 MG NEB (SCH) NEB ×4 (02:54→20:30)
[2017-02-16] MEDS: CHLORHEXIDINE GLUCONATE 2 % 1 PACK (2 CLOTHS)(taper/protocol) TOPICAL SCH (04:00)
[2017-02-16] MEDS: CHLORHEXIDINE GLUCONATE 2 % 1 PACK (2 CLOTHS) TOP SCH (04:00)
[2017-02-16 05:50] LABS: AUTOMATED NEUTROPHIL # 19.8 TH/MM3 (1.8-7.7); BASOPHIL % 0.1 % (0.0-2.0); HEMO FLAGS DIFF FINAL; LYMPH % 1.5 % (9.0-44.0); LYMPHOCYTE # 0.3 TH/MM3 (1.0-4.8); MEAN CELL VOLUME 84.8 FL (80.0-100.0); MEAN CORPUSCULAR HEMOGLOBIN 29.3 PG (27.0-34.0); MEAN CORPUSCULAR HGB CONC 34.6 % (32.0-36.0); NEUT % 96.4 % (16.0-70.0); PLATELET COUNT 287 TH/MM3 (150-450); RED BLOOD COUNT 2.59 MIL/MM3 (4.50-5.90); RED CELL DISTRIBUTION WIDTH 16.4 % (11.6-17.2); WHITE BLOOD COUNT 20.6 TH/MM3 (4.0-11.0)
[2017-02-16] MEDS: INSULIN ASPART SUPPLEMENTAL SCALE SQ SCH (06:16)
[2017-02-16 06:17] LABS: ANION GAP 16 MEQ/L (5-15); AST (GOT) 525 U/L (15-37); BICARBONATE 24.5 MEQ/L (21.0-32.0); BLOOD UREA NITROGEN 48 MG/DL (7-18); CHLORIDE 88 MEQ/L (98-107); GLOMERULAR FILTRATION RATE 20 ML/MIN (>89); POTASSIUM 3.5 MEQ/L (3.5-5.1); SODIUM (NA) 128 MEQ/L (136-145)
[2017-02-16] MEDS: HYDROCORTISONE SOD SUCCINATE 100 MG VIAL IV PUSH SCH ×3 (06:17→17:56)
[2017-02-16 06:18] LABS: ALT (GPT) 927 U/L (12-78)
[2017-02-16] MEDS: SODIUM CHLOR 0.9% 1000 ML INJ 1,000 ML IV SCH ×2 (06:18→16:49)
[2017-02-16 06:21] LABS: ALKALINE PHOSPHATASE 187 U/L (45-117); TOTAL BILIRUBIN ADULT 0.4 MG/DL (0.2-1.0)
[2017-02-16] MEDS ORDERED: DEXTROSE 50% IN WATER 50 ML VIAL(D50) IV PRN (07:15)
[2017-02-16] MEDS ORDERED: GLUCAGON 1 MG/ML VIAL OTHER PRN (07:15)
--- NOTE | 2017-02-16 07:17 | HHI.CCPN ---
Subjective Remarks/Hospital Course 02/14: 76-year-old Male. 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 Patient was found confused and altered by his roommate on 01/04. Was transferred to [facility]. CT abdomen and pelvis revealed a right-sided 3.6 x 2.5 cm left 2.5 bilateral adrenal hemorrhage. He was also diagnosed to have an ileus during that admission. He was evaluated by general surgery, GI who recommended medical management for ileus. He was also evaluated by Dr. Arauz from hematology and in view of bilateral adrenal hemorrhages he was felt to be too high risk for full anticoagulation hence an IVC filter was placed at the time due to his hypercoagulable state. He was positive for lupus anticoagulant and MTHFR gene mutation (heterozygous state). Patient was discharged on January 25, 2017 on a prednisone taper over 13 days which she completed around 02/08/2017. He was discharged to rehabilitation. Patient was not feeling well for the last week or so prior to current admission on 02/14 according to his sister whom I contacted by phone. He was sent to Dr. Trevino's office on 02/14 where he was noted to be confused and disoriented and hypotensive and she was sent to the ER. He had been noted to have a drop in hemoglobin at the rehabilitation a few days back. Patient was evaluated in the ER and was noted to have an altered mental status with sodium of 115, acute kidney injury with creatinine 3.83, potassium 6.2 and significant metabolic acidosis with bicarbonate of 15.8. His hemoglobin was 7 and white count was 17, 000. His systolic blood pressure was in the 70s initially. He received 2 L normal saline bolus was initiated on empiric vancomycin and Zosyn after obtaining blood cultures. While in the ER he became bradycardic and subsequently had an asystole for which CPR/ACLS protocol was initiated for about 15 minutes following which she had return of spontaneous circulation. He was intubated during the code and placed on mechanical ventilation. He was noted to have an elevated lactic acid of 6.2. He underwent CT of his abdomen and pelvis which was unremarkable. Head CT was negative for bleed. I evaluated patient after his arrival to the ICU from CAT scan. At that time he was orally intubated on mechanical ventilation appeared encephalopathic and not following commands. He did have his eyes open spontaneously at the time and was extremely tachypneic on mechanical ventilation due to his metabolic acidosis. I emergently placed a right subclavian central venous catheter as he was hypotensive requiring Levophed for pressor support. He had received 2 L normal saline bolus earlier and was being initiated on a bicarbonate drip. I also emergently placed a right axillary a line. History was obtained by reviewing records and discussion with patient's sister Karen Del Valle as well as ER physician. 02/15 Off levophed this morning. Remians orally intubated on mech vent. Awakens off sedation, following commands. Was started on decadron yesterday for suspected adrenal insufficiency, cortisol level check on 02/14 was 4.4 (very low considering degree of shock on arrival to ICU - was on levophed 20mcg/min). Blood culture with GPC in anaerobic bottle. Recieved 2 units of PRBCs for Hgb 6.6 following arrival to ICU on 02/14. No melena/ rectal bleeding since admission per d/w RN. 02/16 Patient s/p extubation yesterday. On 2L oxygen with good sats. Afebrile. tachycardic. Objective Vital Signs Date Time Temp Pulse Resp B/P Pulse Ox O2 Delivery O2 Flow Rate FiO2 02/16/17 06:00 110 02/16/17 04:00 98.5 24 115/60 97 120/66 02/15/17 20:32 Nasal Cannula 2.00 02/15/17 10:03 40 Intake and Output 02/15/17 02/15/17 02/16/17 08:00 16:00 00:00 Intake Total 1007 ml 1088 ml 775 ml Output Total 1375 ml 1200 ml 425 ml Balance -368 ml -112 ml 350 ml Result Diagram: 02/16/17 0420 02/16/17 042 Other Results Laboratory Tests Test 02/15/17 02/15/17 02/15/17 02/15/17 11:25 11:55 23:00 23:05 Urine Osmolality 364 MOSM/KG Urine Random Sodium 54 MEQ/L Serum Osmolality 289 MOSM/KG Blood Type O NEGATIVE Direct Antiglobulin Test NEGATIVE (John) Sodium Level 127 MEQ/L Potassium Level 3.5 MEQ/L Chloride Level 87 MEQ/L Carbon Dioxide Level 25.5 MEQ/L Anion Gap 15 MEQ/L Blood Urea Nitrogen 47 MG/DL Creatinine 3.34 MG/DL Estimat Glomerular Filtration 18 ML/MIN Rate Random Glucose 252 MG/DL Calcium Level 8.0 MG/DL Lactate Dehydrogenase 429 U/L Haptoglobin 217 MG/DL Test 02/16/17 04:20 White Blood Count 20.6 TH/MM3 Red Blood Count 2.59 MIL/MM3 Hemoglobin 7.6 GM/DL Hematocrit 22.0 % Mean Corpuscular Volume 84.8 FL Mean Corpuscular Hemoglobin 29.3 PG Mean Corpuscular Hemoglobin 34.6 % Concent Red Cell Distribution Width 16.4 % Platelet Count 287 TH/MM3 Mean Platelet Volume 8.3 FL Neutrophils (%) (Auto) 96.4 % Lymphocytes (%) (Auto) 1.5 % Monocytes (%) (Auto) 2.0 % Eosinophils (%) (Auto) 0.0 % Basophils (%) (Auto) 0.1 % Neutrophils # (Auto) 19.8 TH/MM3 Lymphocytes # (Auto) 0.3 TH/MM3 Monocytes # (Auto) 0.4 TH/MM3 Eosinophils # (Auto) 0.0 TH/MM3 Basophils # (Auto) 0.0 TH/MM3 CBC Comment DIFF FINAL Differential Comment Sodium Level 128 MEQ/L Potassium Level 3.5 MEQ/L Chloride Level 88 MEQ/L Carbon Dioxide Level 24.5 MEQ/L Anion Gap 16 MEQ/L Blood Urea Nitrogen 48 MG/DL Creatinine 3.13 MG/DL Estimat Glomerular Filtration 20 ML/MIN Rate Random Glucose 238 MG/DL Calcium Level 8.3 MG/DL Total Bilirubin 0.4 MG/DL Aspartate Amino Transf 525 U/L (AST/SGOT) Alanine Aminotransferase 927 U/L (ALT/SGPT) Alkaline Phosphatase 187 U/L Total Protein 5.8 GM/DL Albumin 2.4 GM/DL Imaging Last Impressions Chest X-Ray 02/15/17 0600 Signed Impressions: Service Date/Time: Wednesday, February 15, 2017 04:23 - CONCLUSION: No change. Lungs remain reasonably clear. Santos Arce MD Head CT 02/14/17 1152 Signed Impressions: Service Date/Time: February 12:22 - CONCLUSION: 1. No acute intracranial abnormality. Flash Clinotn MD Abdomen/Pelvis CT 02/14/17 0000 Signed Impressions: Service Date/Time: February 14:38 - CONCLUSION: 1. Mild gaseous distention of the cecum. 2. Very minimal right basilar effusion. 3. No focal abscess identified. 4. Minimal left inguinal hernia. Flash Clinton MD Objective Remarks GENERAL: Patient is 76 yo lying in bed in NAD SKIN: Warm and dry. HEAD: Normocephalic. EYES: No scleral icterus. No injection or drainage. NECK: Supple, trachea midline. No JVD or lymphadenopathy. CARDIOVASCULAR: Tachycardic without murmurs, gallops, or rubs. RESPIRATORY: Breath sounds equal bilaterally. No accessory muscle use. GASTROINTESTINAL: Abdomen soft, non-tender, nondistended. MUSCULOSKELETAL: No cyanosis, or edema. Neuro: Awake, confused at times. A/P Assessment and Plan 76-year-old male with: Hyponatremia Hyperkalemia (resolved) Encephalopathy Cardiac arrest status post CPR Metabolic acidosis Hypotension - multifactorial sec to severe anemia, adrenal insufficiency and possible sepsis Adrenal insufficiency Lactic acidosis Acute kidney injury Acute respiratory failure on mechanical ventilation Anemia History of DVT status post IVC filter History of bilateral adrenal hemorrhages History of COPD Lupus anticoagulant positive Possible sepsis GPC bacteremia Plan: Neuro: Monitor neuro status and avoid sedatives. 02/14 CT brain: No acute intracranial abnormalities. CV: Monitor HR and BP keep MAP>65mmHg Place on Lopressor 12.5mg BID for rate control Pulm: Continue with oxygen keep sat >92% Bronchodilators, IS GI/liver: On PO renal diet. CT abdomen pelvis unremarkable. Monitor LFT's, check US liver, Hepatitis profile. Renal/: Monitor renal function, I/O's, avoid nephrotoxins. On NS@100ml/hr Cr: 3.13 from 3.34, UO: 2L. Renal consulted. ID: Received IV vancomycin/Zosyn in the ER. Given Vanco on 02/14. ID is following 02/14 BC: Staph Epi 1/4 bottles- likely contaminant. Repeat BC 02/15: NGTD Endocrine: Patient has a history of bilateral adrenal hemorrhages in last hospitalization ( disappeared on image from 02/14) and was discharged on prednisone which she completed around 02/08/17. In view of hyponatremia and severe metabolic acidosis concern for adrenal insufficiency. Cortisol level 4.4 - On hydrocortisone 50mg IV Q6hrly Heme: Monitor CBC and coags. 2 units PRBCs transfused on 02/14. Patient does have a hypercoagulable state with lupus anticoagulant positivity and DVT. Off anticoagulation currently due to drop in hemoglobin. Patient does have an IVC filter in place. Henm is following- Dr. Arauz Prophylaxis: PPI/SCDs/ sq heparin , check Doppler US LE start heparin drip per Heme's recommendations Access: Right subclavian central line placed and 02/14. d/c central line and place peripheral IV's. Level 3 Sonya Owen MD Feb 16, 2017 07:17
[2017-02-16] MEDS ORDERED: PILL SPLITTER OTHER PRN (07:30)
[2017-02-16] MEDS: CHLORHEXIDINE 0.12% (ORAL KIT) 15 ML CUP MT SCH ×2 (08:00→20:00)
[2017-02-16] MEDS: SODIUM CHLORIDE 0.9% FLUSH 10 ML FLUSH IV FLUSH SCH ×2 (08:17→21:53)
[2017-02-16] MEDS: METOPROLOL TARTRATE 25 MG TAB PO SCH ×2 (08:17→21:52)
[2017-02-16] MEDS: HEPARIN SODIUM - SQ 10,000 UNITS/ML VIAL SQ SCH (08:18)
[2017-02-16] MEDS: PANTOPRAZOLE SODIUM 40 MG VIAL IV SCH (08:18)
[2017-02-16] MEDS: INSULIN NovoLIN REGULAR SUPPLEMENTAL SCALE SQ SCH ×3 (08:19→19:04)
[2017-02-16 09:31] LABS: AUTOMATED NEUTROPHIL # 22.5 TH/MM3 (1.8-7.7); BASOPHIL % 0.1 % (0.0-2.0); HEMATOCRIT 21.9 % (39.0-51.0); HEMO FLAGS DIFF FINAL; LYMPH % 1.6 % (9.0-44.0); LYMPHOCYTE # 0.4 TH/MM3 (1.0-4.8); MEAN CELL VOLUME 84.9 FL (80.0-100.0); MEAN CORPUSCULAR HEMOGLOBIN 30.2 PG (27.0-34.0); MEAN CORPUSCULAR HGB CONC 35.5 % (32.0-36.0); MONO % 2.4 % (0.0-8.0); NEUT % 95.9 % (16.0-70.0); PLATELET COUNT 307 TH/MM3 (150-450); RED BLOOD COUNT 2.58 MIL/MM3 (4.50-5.90); RED CELL DISTRIBUTION WIDTH 16.4 % (11.6-17.2); WHITE BLOOD COUNT 23.5 TH/MM3 (4.0-11.0)
--- NOTE | 2017-02-16 09:39 | RADRPT ---
EXAM DATE/TIME: 02/16/2017 07:43 [facility] COMPARISON: No previous studies available for comparison. INDICATIONS : Increased lab values. MEDICAL HISTORY : Hypertension. Deep venous thrombosis. Chronic obstructive pulmonary disease. Confusion. Cardiac disor ders. Clotting problems. Depression. Anxiety. Anticoagulant therapy, Xarelto. SURGICAL HISTORY : Vasectomy. IVC filter placement. ENCOUNTER: Initial ACUITY: 1 day PAIN SCORE: 0/10 LOCATION: Bilateral upper quadrant MEASUREMENTS: LIVER: 15.1 cm length COMMON DUCT: 3 mm RIGHT KIDNEY: 11.8 x 5.4 x 5.9 cm SPLEEN: 12.9 cm length FINDINGS: There is a small right pleural effusion. Liver is free of focal defects. There is no intrahepatic b iliary duct dilatation. Common bile duct is normal. There are no gallstones identified. Pancreas is poorly visualized due to overlying bowel gas. Right kidney is mildly echogenic. CONCLUSION: There is no intrahepatic biliary duct dilatation. Garrison Clinton MD FACR on February 16, 2017 at 9:28 Board Certified Radiologist. This report was verified electronically.
--- NOTE | 2017-02-16 11:39 | HHI.NPPN ---
Subjective History of Present Illness 76 y/o male who was recently discharged s/p hospitalization for adrenal hemorrhage and SBO. He was placed on a prednisone taper which ended on 02/08. He had not been feeling well for the past week, and was sent to Dr. Trevino' office on 02/14 for evaluation, where he was noted to be confused and disoriented and hypotensive and she was then sent to the ER. He had been noted to have a drop in hemoglobin at the rehabilitation a few days back. Patient was evaluated in the ER and was noted to have an altered mental status with sodium of 115, acute kidney injury with creatinine 3.83, potassium 6.2 and significant metabolic acidosis with bicarbonate of 15.8. His hemoglobin was 7. Additional Remarks Patient is alert, no headache, no dizziness, or SOB. Review of Systems General Constitutional: Fatigue Cardiovascular Cardiac: MITCHELL Objective Data Data 02/15/17 02/16/17 19:00 07:00 Intake Total 1088 ml 1323 ml Output Total 1200 ml 800 ml Balance -112 ml 523 ml Intake IV Total 1088 ml 1323 ml Output Urine Total 1200 ml 800 ml Vital Signs Date Time Temp Pulse Resp B/P Pulse Ox O2 Delivery O2 Flow Rate FiO2 02/16/17 09:52 97 02/16/17 06:00 110 02/16/17 04:00 98.5 121 24 115/60 97 120/66 02/16/17 04:00 121 02/16/17 02:00 120 02/16/17 00:00 98.4 122 24 112/58 98 116/65 02/16/17 00:00 122 02/15/17 22:00 126 02/15/17 20:32 97 Nasal Cannula 2.00 02/15/17 20:00 98.2 117 20 107/55 98 120/71 Manual Cuff/Auscultation 02/15/17 20:00 117 02/15/17 18:00 123 02/15/17 16:00 122 02/15/17 16:00 98.7 122 21 116/60 100 119/76 02/15/17 14:00 117 02/15/17 12:00 114 02/15/17 12:00 98.6 114 0 116/66 99 112/73 -: 02/16/17 0745 02/16/17 0420 Microbiology 02/15/17 Aerobic Blood Culture - Preliminary, Resulted NO GROWTH IN 1 DAY 02/15/17 Anaerobic Blood Culture - Final, Resulted QNS - SEE AEROBE REPORT 02/15/17 Aerobic Blood Culture - Preliminary, Resulted NO GROWTH IN 1 DAY 02/15/17 Anaerobic Blood Culture - Preliminary, Resulted NO GROWTH IN 1 DAY Physical Exam General Appearance: No Acute Distress, Comfortable Eyes Eye Exam: Pupils Equal Throat Throat Exam: Oral Mucosa [place] & Moist Neck Neck Exam: Neck Supple Pulmonary Resp Exam: Breath Sounds Equal, No Distress, Rhonchi, Decreased Bases Cardiology CV Exam: Regular, Normal Sinus Rhythm Gastrointestinal/Abdomen GI Exam: Soft, Non-Tender, Bowel Sounds Present Extremeties Extremities Exam: Trace Edema Neurologic Neuro Exam: Alert, Awake Psychiatric Psych Exam: Appropriate Responses Assessment/Plan Problem List: (1) TIBURCIO (acute kidney injury) Plan: In a patient who had normal creatinine in early January (1.05), 1.3 at discharge January 2017 TIBURCIO likely due to hypoperfusion from sepsis, later suffered cardiac arrest. May have progressed to ATN he is making good amount of urine acidosis corrected, off bicarb drip, on IVF continue 0.9% NS UA without infection Creatinine is slightly better. Avoid Nephrotoxins, follow BMP. (2) Hyponatremia Plan: Improving he he is not hypervolemic, continue NS and monitor response check serum osmolality, urine sodium and osmolality (3) Acute hyperkalemia Plan: due to renal failure, improved monitor (4) Altered mental status Plan: improving, likely due to adrenal insufficiency, sepsis, hyponatremia continue to monitor, he is awake now (5) s/p adrenal hemrhage Plan: with suspected adrenal insufficiency after stopping prednisone continue Decadron BID (6) Elevated liver function tests Plan: suspected shock liver, monitor (7) DVT (deep venous thrombosis) Plan: s/p IVC filter (8) Sepsis Plan: positive blood cultures reported he was given vancomycin and zosyn (9) Anemia Plan: given 2 units PRBC hematology has been consulted Rakan Davis MD Feb 16, 2017 11:39
--- NOTE | 2017-02-16 16:30 | RADRPT ---
EXAM DATE/TIME: 02/16/2017 15:38 [facility] COMPARISON: US LEG RIGHT VENOUS DOPPLER, January 12, 2017, 12:08. US LEG BILATERAL VENOUS DOPPLER, January 04, 2017, 1 8:55. INDICATIONS : Bilateral leg swelling with prior DVT seen. MEDICAL HISTORY : Deep venous thrombosis. Adrenal hemorrhage. Sepsis. Anemia. Hypertension. Small bowel obstruction. Altered mental status SURGICAL HISTORY : IVC filter. Vasectomy. Hernia repair. ENCOUNTER: [facility] ACUITY: 1 day PAIN SCORE: 0/10 LOCATION: Bilateral leg. TECHNIQUE: Venous ultrasound of the left and right leg was performed from the inguinal ligament to the proximal calf. Real-time, color Doppler and spectral tracing, compression and augmentation techniques were us ed. FINDINGS: Nonocclusive thrombus seen in all venous tributaries of the right lower extremity, appear nonacu te. Similar findings are seen on the left but there is occlusive thrombus in the left superficial fem oral vein. CONCLUSION: Bilateral DVT as above. DVT on the left is no since January 04. Santos Arce MD on February 16, 2017 at 16:22 Board Certified Radiologist. This report was verified electronically.
[2017-02-16] MEDS: HEPARIN-D5W INJ 250 ML IV SCH (16:49)
[2017-02-16 18:14] LABS: HEMATOCRIT 22.2 % (39.0-51.0); MEAN CELL VOLUME 86.6 FL (80.0-100.0); MEAN CORPUSCULAR HEMOGLOBIN 29.6 PG (27.0-34.0); MEAN CORPUSCULAR HGB CONC 34.2 % (32.0-36.0); PLATELET COUNT 321 TH/MM3 (150-450); RED BLOOD COUNT 2.56 MIL/MM3 (4.50-5.90); RED CELL DISTRIBUTION WIDTH 16.7 % (11.6-17.2); REVIEW FLAG FINAL; WHITE BLOOD COUNT 22.5 TH/MM3 (4.0-11.0)
[2017-02-16 18:21] LABS: INTERNATIONAL NORMALIZED RATIO 1.1 RATIO; PROTHROMBIN TIME - PATIENT 12.6 SEC (9.8-11.6)
[2017-02-16] MEDS: DOCUSATE SODIUM 100 MG/10 ML UDC PO SCH (21:52)
[2017-02-17] VITALS (14 sets, daily range): BP systolic 129–161; BP diastolic 76–98; PULSE 96–114; RESP 19–30; TEMP 97.8–99.1; O2SAT 93–98
[2017-02-17 00:56] LABS: APTT (PATIENT) 57.5 SEC (24.3-30.1)
[2017-02-17] MEDS: INSULIN NovoLIN REGULAR SUPPLEMENTAL SCALE SQ SCH ×4 (01:15→18:21)
[2017-02-17] MEDS: HYDROCORTISONE SOD SUCCINATE 100 MG VIAL IV PUSH SCH ×3 (03:39→17:02)
[2017-02-17] MEDS: RESP: ALBUTEROL 2.5 MG/IPRATROPIUM 0.5 MG NEB (SCH) NEB ×4 (03:41→21:00)
[2017-02-17] MEDS: CHLORHEXIDINE GLUCONATE 2 % 1 PACK (2 CLOTHS) TOP SCH (03:42)
[2017-02-17] MEDS: SODIUM CHLOR 0.9% 1000 ML INJ 1,000 ML IV SCH ×2 (03:42→12:50)
[2017-02-17] MEDS: CHLORHEXIDINE GLUCONATE 2 % 1 PACK (2 CLOTHS)(taper/protocol) TOPICAL SCH (04:00)
--- NOTE | 2017-02-17 07:03 | HHI.CCPN ---
Subjective Remarks/Hospital Course 02/14: 76-year-old Male. 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 Patient was found confused and altered by his roommate on 01/04. Was transferred to [facility]. CT abdomen and pelvis revealed a right-sided 3.6 x 2.5 cm left 2.5 bilateral adrenal hemorrhage. He was also diagnosed to have an ileus during that admission. He was evaluated by general surgery, GI who recommended medical management for ileus. He was also evaluated by Dr. Arauz from hematology and in view of bilateral adrenal hemorrhages he was felt to be too high risk for full anticoagulation hence an IVC filter was placed at the time due to his hypercoagulable state. He was positive for lupus anticoagulant and MTHFR gene mutation (heterozygous state). Patient was discharged on January 25, 2017 on a prednisone taper over 13 days which she completed around 02/08/2017. He was discharged to rehabilitation. Patient was not feeling well for the last week or so prior to current admission on 02/14 according to his sister whom I contacted by phone. He was sent to Dr. Trevino's office on 02/14 where he was noted to be confused and disoriented and hypotensive and she was sent to the ER. He had been noted to have a drop in hemoglobin at the rehabilitation a few days back. Patient was evaluated in the ER and was noted to have an altered mental status with sodium of 115, acute kidney injury with creatinine 3.83, potassium 6.2 and significant metabolic acidosis with bicarbonate of 15.8. His hemoglobin was 7 and white count was 17, 000. His systolic blood pressure was in the 70s initially. He received 2 L normal saline bolus was initiated on empiric vancomycin and Zosyn after obtaining blood cultures. While in the ER he became bradycardic and subsequently had an asystole for which CPR/ACLS protocol was initiated for about 15 minutes following which she had return of spontaneous circulation. He was intubated during the code and placed on mechanical ventilation. He was noted to have an elevated lactic acid of 6.2. He underwent CT of his abdomen and pelvis which was unremarkable. Head CT was negative for bleed. I evaluated patient after his arrival to the ICU from CAT scan. At that time he was orally intubated on mechanical ventilation appeared encephalopathic and not following commands. He did have his eyes open spontaneously at the time and was extremely tachypneic on mechanical ventilation due to his metabolic acidosis. I emergently placed a right subclavian central venous catheter as he was hypotensive requiring Levophed for pressor support. He had received 2 L normal saline bolus earlier and was being initiated on a bicarbonate drip. I also emergently placed a right axillary a line. History was obtained by reviewing records and discussion with patient's sister Karen Del Valle as well as ER physician. 02/15 Off levophed this morning. Remians orally intubated on mech vent. Awakens off sedation, following commands. Was started on decadron yesterday for suspected adrenal insufficiency, cortisol level check on 02/14 was 4.4 (very low considering degree of shock on arrival to ICU - was on levophed 20mcg/min). Blood culture with GPC in anaerobic bottle. Recieved 2 units of PRBCs for Hgb 6.6 following arrival to ICU on 02/14. No melena/ rectal bleeding since admission per d/w RN. 02/16 Patient s/p extubation yesterday. On 2L oxygen with good sats. Afebrile. tachycardic. 02/17 No events overnight. Patient was started on Heparin drip yesterday. Awake and alert. Afebrile. Objective Vital Signs Date Time Temp Pulse Resp B/P Pulse Ox O2 Delivery O2 Flow Rate FiO2 02/17/17 06:00 96 02/17/17 04:00 98.1 28 95 02/17/17 00:00 129/76 02/16/17 20:30 21 02/15/17 20:32 Nasal Cannula 2.00 Intake and Output 02/16/17 02/16/17 02/17/17 08:00 16:00 00:00 Intake Total 548 ml 1444 ml 1142 ml Output Total 375 ml 675 ml 600 ml Balance 173 ml 769 ml 542 ml Result Diagram: 02/16/17 0289 02/16/17 1038 Other Results Laboratory Tests Test 02/16/17 02/16/17 02/17/17 07:45 17:45 00:29 White Blood Count 23.5 TH/MM3 22.5 TH/MM3 Red Blood Count 2.58 MIL/MM3 2.56 MIL/MM3 Hemoglobin 7.8 GM/DL 7.6 GM/DL Hematocrit 21.9 % 22.2 % Mean Corpuscular Volume 84.9 FL 86.6 FL Mean Corpuscular Hemoglobin 30.2 PG 29.6 PG Mean Corpuscular Hemoglobin 35.5 % 34.2 % Concent Red Cell Distribution Width 16.4 % 16.7 % Platelet Count 307 TH/MM3 321 TH/MM3 Mean Platelet Volume 8.3 FL 8.1 FL Neutrophils (%) (Auto) 95.9 % Lymphocytes (%) (Auto) 1.6 % Monocytes (%) (Auto) 2.4 % Eosinophils (%) (Auto) 0.0 % Basophils (%) (Auto) 0.1 % Neutrophils # (Auto) 22.5 TH/MM3 Lymphocytes # (Auto) 0.4 TH/MM3 Monocytes # (Auto) 0.6 TH/MM3 Eosinophils # (Auto) 0.0 TH/MM3 Basophils # (Auto) 0.0 TH/MM3 CBC Comment DIFF FINAL Differential Comment Prothrombin Time 12.6 SEC Prothromb Time International 1.1 RATIO Ratio Activated Partial 31.0 SEC 57.5 SEC Thromboplast Time Imaging Last Impressions Lower Extremity Ultrasound 02/16/17 0000 Signed Impressions: Service Date/Time: Thursday, February 16, 2017 15:38 - CONCLUSION: Bilateral DVT as above. DVT on the left is no since January 04. Santos Arce MD Liver Ultrasound 02/16/17 0000 Signed Impressions: Service Date/Time: Thursday, February 16, 2017 07:43 - CONCLUSION: There is no intrahepatic biliary duct dilatation. Garrison Clinton MD FACR Chest X-Ray 02/15/17 0600 Signed Impressions: Service Date/Time: Wednesday, February 15, 2017 04:23 - CONCLUSION: No change. Lungs remain reasonably clear. Santos Arce MD Head CT 02/14/17 1152 Signed Impressions: Service Date/Time: February 12:22 - CONCLUSION: 1. No acute intracranial abnormality. Flash Clinton MD Abdomen/Pelvis CT 02/14/17 0000 Signed Impressions: Service Date/Time: February 14:38 - CONCLUSION: 1. Mild gaseous distention of the cecum. 2. Very minimal right basilar effusion. 3. No focal abscess identified. 4. Minimal left inguinal hernia. Flash Clinton MD Objective Remarks GENERAL: Patient is 76 yo lying in bed in NAD SKIN: Warm and dry. HEAD: Normocephalic. EYES: No scleral icterus. No injection or drainage. NECK: Supple, trachea midline. No JVD or lymphadenopathy. CARDIOVASCULAR: Tachycardic without murmurs, gallops, or rubs. RESPIRATORY: Breath sounds equal bilaterally. No accessory muscle use. GASTROINTESTINAL: Abdomen soft, non-tender, nondistended. MUSCULOSKELETAL: No cyanosis, or edema. Neuro: Awake, confused at times. A/P Assessment and Plan 76-year-old male with: Hyponatremia Hyperkalemia (resolved) Encephalopathy Cardiac arrest status post CPR Metabolic acidosis Hypotension - multifactorial sec to severe anemia, adrenal insufficiency and possible sepsis Adrenal insufficiency Lactic acidosis Acute kidney injury Acute respiratory failure on mechanical ventilation Anemia History of DVT status post IVC filter History of bilateral adrenal hemorrhages History of COPD Lupus anticoagulant positive Possible sepsis GPC bacteremia Plan: Neuro: Monitor neuro status and avoid sedatives. 02/14 CT brain: No acute intracranial abnormalities. CV: Monitor HR and BP keep MAP>65mmHg Increase Lopressor 12.5mg BID for rate control Pulm: Continue with oxygen keep sat >92% Bronchodilators, IS GI/liver: On PO renal diet. CT abdomen pelvis unremarkable. Monitor LFT's, US liver: There is no intrahepatic biliary duct dilatation. Hepatitis profile pending. Renal/: Monitor renal function, I/O's, avoid nephrotoxins. On NS@100ml/hr Renal is following, follow up on BMP, UO: 2275ml in 24 hrs ID: Received IV vancomycin/Zosyn in the ER. Given Vanco on 02/14. ID is following. Add Levaquin 02/14 BC: Staph Epi, Strep species / bottles-. Repeat BC 02/15: NGTD Endocrine: Patient has a history of bilateral adrenal hemorrhages in last hospitalization ( disappeared on image from 02/14) and was discharged on prednisone which she completed around 02/08/17. In view of hyponatremia and severe metabolic acidosis concern for adrenal insufficiency. Cortisol level 4.4 - Decrease hydrocortisone 50mg IV Q12 Heme: Monitor CBC and coags. 2 units PRBCs transfused on 02/14. Patient does have a hypercoagulable state with lupus anticoagulant positivity and DVT. Patient does have an IVC filter in place. Heme is following- Dr. Arauz Started on Heparin drip 02/16 Prophylaxis: PPI/SCDs/ heparin drip , Doppler US LE : b/l DVT Access: peripheral IV's. Will sign off and transfer care to [facility] Level 3 Sonya Owen MD Feb 17, 2017 07:03
[2017-02-17] MEDS: CHLORHEXIDINE 0.12% (ORAL KIT) 15 ML CUP MT SCH ×2 (08:00→19:58)
[2017-02-17] MEDS: SENNOSIDES SYRUP 8.8 MG/5 ML CUP PO SCH (08:37)
[2017-02-17] MEDS: DOCUSATE SODIUM 100 MG/10 ML UDC PO SCH ×2 (08:37→19:57)
[2017-02-17] MEDS: METOPROLOL TARTRATE 25 MG TAB PO SCH ×2 (08:37→19:58)
[2017-02-17] MEDS: PANTOPRAZOLE SODIUM 40 MG VIAL IV SCH (08:37)
[2017-02-17] MEDS: SODIUM CHLORIDE 0.9% FLUSH 10 ML FLUSH IV FLUSH SCH ×2 (08:38→19:58)
[2017-02-17 08:48] LABS: BASOPHIL % 0.1 % (0.0-2.0); HEMATOCRIT 22.4 % (39.0-51.0); HEMO FLAGS DIFF FINAL; LYMPH % 2.2 % (9.0-44.0); LYMPHOCYTE # 0.4 TH/MM3 (1.0-4.8); MEAN CELL VOLUME 87.9 FL (80.0-100.0); MEAN CORPUSCULAR HEMOGLOBIN 29.5 PG (27.0-34.0); MEAN CORPUSCULAR HGB CONC 33.6 % (32.0-36.0); NEUT % 94.7 % (16.0-70.0); PLATELET COUNT 327 TH/MM3 (150-450); RED BLOOD COUNT 2.55 MIL/MM3 (4.50-5.90); RED CELL DISTRIBUTION WIDTH 16.4 % (11.6-17.2); WHITE BLOOD COUNT 20.1 TH/MM3 (4.0-11.0)
[2017-02-17 08:58] LABS: APTT (PATIENT) 58.2 SEC (24.3-30.1)
[2017-02-17 09:17] LABS: ALKALINE PHOSPHATASE 190 U/L (45-117); ALT (GPT) 827 U/L (12-78); ANION GAP 15 MEQ/L (5-15); AST (GOT) 280 U/L (15-37); BLOOD UREA NITROGEN 36 MG/DL (7-18); CHLORIDE 94 MEQ/L (98-107); GLOMERULAR FILTRATION RATE 29 ML/MIN (>89); POTASSIUM 3.3 MEQ/L (3.5-5.1); SODIUM (NA) 131 MEQ/L (136-145); TOTAL BILIRUBIN ADULT 0.4 MG/DL (0.2-1.0)
[2017-02-17] MEDS ORDERED: POTASSIUM CHLOR 20 MEQ PREMIX 100 ML IV ONE (09:45)
--- NOTE | 2017-02-17 09:53 | PD.ONC.PN ---
Subjective Subjective Remarks Afebrile overnight. Patient resting comfortably in bed. No bowel movement in several days. Tolerating heparin gtt. No bleeding. Objective Data Date Time Temp Pulse Resp B/P Pulse Ox O2 Delivery O2 Flow Rate FiO2 02/17/17 08:15 97 02/17/17 06:00 96 02/17/17 04:00 98.1 101 28 95 02/17/17 04:00 100 02/17/17 02:00 104 02/17/17 00:00 103 02/17/17 00:00 99.1 103 30 129/76 98 02/16/17 22:00 125 02/16/17 20:30 96 21 02/16/17 20:00 98.9 117 29 129/64 96 02/16/17 20:00 117 02/16/17 18:00 124 02/16/17 16:00 125 02/16/17 16:00 98.2 125 22 149/63 93 Arterial Line 02/16/17 14:00 116 02/16/17 12:00 117 02/16/17 12:00 98.5 117 20 121/59 96 129/68 02/16/17 10:00 104 02/16/17 09:52 97 02/17/17 02/17/17 02/17/17 07:00 15:00 23:00 Intake Total 1222 ml Output Total 1000 ml Balance 222 ml Result Diagram: 02/17/17 0700 02/17/17 0700 Laboratory Results Laboratory Tests Test 02/16/17 02/17/17 02/17/17 17:45 00:29 07:00 White Blood Count 22.5 TH/MM3 20.1 TH/MM3 Red Blood Count 2.56 MIL/MM3 2.55 MIL/MM3 Hemoglobin 7.6 GM/DL 7.5 GM/DL Hematocrit 22.2 % 22.4 % Mean Corpuscular Volume 86.6 FL 87.9 FL Mean Corpuscular Hemoglobin 29.6 PG 29.5 PG Mean Corpuscular Hemoglobin 34.2 % 33.6 % Concent Red Cell Distribution Width 16.7 % 16.4 % Platelet Count 321 TH/MM3 327 TH/MM3 Mean Platelet Volume 8.1 FL 8.4 FL Prothrombin Time 12.6 SEC Prothromb Time International 1.1 RATIO Ratio Activated Partial 31.0 SEC 57.5 SEC 58.2 SEC Thromboplast Time Neutrophils (%) (Auto) 94.7 % Lymphocytes (%) (Auto) 2.2 % Monocytes (%) (Auto) 3.0 % Eosinophils (%) (Auto) 0.0 % Basophils (%) (Auto) 0.1 % Neutrophils # (Auto) 19.0 TH/MM3 Lymphocytes # (Auto) 0.4 TH/MM3 Monocytes # (Auto) 0.6 TH/MM3 Eosinophils # (Auto) 0.0 TH/MM3 Basophils # (Auto) 0.0 TH/MM3 CBC Comment DIFF FINAL Differential Comment Sodium Level 131 MEQ/L Potassium Level 3.3 MEQ/L Chloride Level 94 MEQ/L Carbon Dioxide Level 22.0 MEQ/L Anion Gap 15 MEQ/L Blood Urea Nitrogen 36 MG/DL Creatinine 2.19 MG/DL Estimat Glomerular Filtration 29 ML/MIN Rate Random Glucose 163 MG/DL Calcium Level 7.8 MG/DL Total Bilirubin 0.4 MG/DL Aspartate Amino Transf 280 U/L (AST/SGOT) Alanine Aminotransferase 827 U/L (ALT/SGPT) Alkaline Phosphatase 190 U/L Total Protein 5.7 GM/DL Albumin 2.4 GM/DL Culture Results Microbiology Date/Time Procedure Status Source Growth 02/14/17 12:05 Aerobic Blood Culture - Preliminary Resulted Blood Peripheral NO GROWTH IN 2 DAYS 02/14/17 12:05 Anaerobic Blood Culture - Preliminary Resulted Staphylococcus Epidermidis 02/14/17 12:14 Aerobic Blood Culture - Preliminary Resulted Blood Peripheral NO GROWTH IN 2 DAYS 02/14/17 12:14 Anaerobic Blood Culture - Preliminary Resulted Blood Peripheral NO GROWTH IN 2 DAYS 02/15/17 08:05 Gram Stain - Final Resulted Sputum Endotracheal 02/15/17 08:05 Sputum Culture - Preliminary Resulted Sputum Endotracheal HEAVY GROWTH NORMAL RESPIRATORY CONCEPCIÓN... 02/15/17 17:30 Aerobic Blood Culture - Preliminary Resulted Blood Peripheral NO GROWTH IN 1 DAY 02/15/17 17:30 Anaerobic Blood Culture - Final Resulted Blood Peripheral QNS - SEE AEROBE REPORT 02/15/17 23:37 Aerobic Blood Culture - Preliminary Resulted Blood Peripheral NO GROWTH IN 1 DAY 02/15/17 23:37 Anaerobic Blood Culture - Preliminary Resulted Blood Peripheral NO GROWTH IN 1 DAY Imaging Studies Last Impressions Lower Extremity Ultrasound 02/16/17 0000 Signed Impressions: Service Date/Time: Thursday, February 16, 2017 15:38 - CONCLUSION: Bilateral DVT as above. DVT on the left is no since January 04. Santos Arce MD Liver Ultrasound 02/16/17 0000 Signed Impressions: Service Date/Time: Thursday, February 16, 2017 07:43 - CONCLUSION: There is no intrahepatic biliary duct dilatation. Garrison Clinton MD FACR Chest X-Ray 02/15/17 0600 Signed Impressions: Service Date/Time: Wednesday, February 15, 2017 04:23 - CONCLUSION: No change. Lungs remain reasonably clear. Santos Arce MD Head CT 02/14/17 1152 Signed Impressions: Service Date/Time: February 12:22 - CONCLUSION: 1. No acute intracranial abnormality. Flash Clinton MD Abdomen/Pelvis CT 02/14/17 0000 Signed Impressions: Service Date/Time: , February 14, 2017 14:38 - CONCLUSION: 1. Mild gaseous distention of the cecum. 2. Very minimal right basilar effusion. 3. No focal abscess identified. 4. Minimal left inguinal hernia. Flash Clinton MD Administered Medications Medications (Trade) Dose Ordered Sig/Jose Route PRN Reason Start Time Stop Time Status Last Admin Dose Admin Sodium Chloride (NS Flush) 2 ml BID IV FLUSH 02/14/17 21:00 02/17/17 08:38 Chlorhexidine Gluconate (Peridex 0.12% Liq) 15 ml BID@08,20 MT 02/14/17 20:00 02/15/17 08:46 Pantoprazole Sodium (Protonix Inj) 40 mg DAILY IV 02/14/17 16:00 02/17/17 08:37 Chlorhexidine Gluconate (Chlorhexidine 2% Cloth) 3 pack Taper DAILY@04 TOP 02/15/17 04:00 02/11/18 03:59 02/17/17 03:42 Miscellaneous Information Patient in critical care unit? Ass... [id number] .XX 02/14/17 18:15 02/15/17 05:17 Chlorhexidine Gluconate (Chlorhexidine 2% Cloth) 3 pack DAILY@04 TOPICAL 02/15/17 04:00 02/19/17 04:01 02/16/17 04:00 Acetaminophen 650 mg 650 mg Q6H PRN PO TEMP >100.4 02/14/17 19:15 02/14/17 22:04 Norepinephrine Bitartrate 250 ml @ 0 mls/hr TITRATE IV 02/15/17 02:45 02/15/17 02:49 Sodium Chloride (NS 1000 ml Inj) 1,000 ml @ 100 mls/hr Q10H IV 02/15/17 10:45 02/17/17 03:42 Insulin Human Regular (NovoLIN R SUPPLEMENTAL SCALE) 1 Q6H SQ 02/16/17 07:15 02/17/17 06:01 Docusate Sodium 100 mg 100 mg Q12HR PO 02/16/17 21:00 02/17/17 08:37 Heparin Sodium/ Dextrose (Heparin-D5W Inj) 250 ml @ 0 mls/hr TITRATE IV 02/16/17 16:15 02/16/17 16:49 Metoprolol Tartrate (Lopressor) 25 mg Q12HR PO 02/17/17 09:00 02/17/17 08:37 Sennosides (Senna Liq) 8.8 mg DAILY PO 02/17/17 09:00 02/17/17 08:37 Objective Remarks GENERAL: Elderly male, sitting up in bed in [facility]. SKIN: Warm and dry. HEAD: Normocephalic. EYES: No injection or drainage. NECK: Supple, trachea midline. CARDIOVASCULAR: Regular rate and rhythm RESPIRATORY: Breath sounds equal bilaterally. No accessory muscle use. GASTROINTESTINAL: Abdomen soft, non-tender, nondistended. EXTREMITIES: No cyanosis NEUROLOGICAL: No obvious focal deficit. Awake, alert, and oriented x3. Assessment/Plan Problem List: (1) DVT (deep venous thrombosis) Status: Acute Plan: 02/17: continue heparin gtt. closely monitor H/H. monitor for bleeding. --chronic right lower extremity DVT --h/o bilateral adrenal hemorrhages --s/p IVC filter placement. --still at risk for further expansion of the DVT in lower extremity --h/o atrial fibrillation --currently on heparin gtt --can be transitioned to Coumadin if/when hgb remains stable. (2) Normocytic anemia Status: Acute Plan: 02/17: check CBC. monitor for bleeding --stool occult blood pending --LDH elevated, haptoglobin also elevated, bilirubin normal --marleny negative Assessment 76y/o male admitted with severe sepsis, AMS. Hematology consulted to make recommendations on anticoagulation in patient history of DVT with lupus anticoagulant and history of adrenal hemorrhages history of DVT and lupus anticoagulant with history of adrenal hemorrhages --While in the emergency room, he became bradycardic and he subsequently asystole. --underwent CPR ACLS protocol for about 15 minutes and he had return of spontaneous circulation. --s/p IVC filter placement Attending Statement Called by RN for heparin drip. Chart reviewed. DR Smiley dictation noted to start heparin. Patient was started on heparin last night. So far he's been tolerating quite well No bleeding noted Patient needs Anti-coagulation for DVT and atrial fibrillation Dr. smiley to follow tomorrow The exam, history, and the medical decision-making described in the above note were completed with the assistance of the mid-level provider. I reviewed and agree with the findings presented. I attest that I had a [id number] encounter with the patient on the same day, and personally performed and documented my assessment and findings in the medical record. Problem Qualifiers (1) DVT (deep venous thrombosis): Jeaneth Álvarez Feb 17, 2017 09:53 Irene Singh MD Feb 17, 2017 23:51
[2017-02-17] MEDS ORDERED: LEVOFLOXACIN 500 MG PREMIX INJ 100 ML IV ONE (11:00)
[2017-02-17 11:03] LABS: AUTOMATED NEUTROPHIL # 17.7 TH/MM3 (1.8-7.7); BASOPHIL % 0.2 % (0.0-2.0); HEMATOCRIT 23.5 % (39.0-51.0); HEMO FLAGS DIFF FINAL; LYMPH % 1.6 % (9.0-44.0); LYMPHOCYTE # 0.3 TH/MM3 (1.0-4.8); MEAN CELL VOLUME 88.3 FL (80.0-100.0); MEAN CORPUSCULAR HEMOGLOBIN 29.7 PG (27.0-34.0); MEAN CORPUSCULAR HGB CONC 33.7 % (32.0-36.0); MONO % 2.6 % (0.0-8.0); NEUT % 95.6 % (16.0-70.0); PLATELET COUNT 333 TH/MM3 (150-450); RED BLOOD COUNT 2.66 MIL/MM3 (4.50-5.90); RED CELL DISTRIBUTION WIDTH 16.3 % (11.6-17.2); WHITE BLOOD COUNT 18.6 TH/MM3 (4.0-11.0)
--- NOTE | 2017-02-17 11:37 | HHI.IDPN ---
Note Infectious Disease Note ID COVERAGE: Asked to see patient by Dr Desir for increasing WBC. Patient on O2 via nasal canulla. extubated on 02/15. Notes that his chest hurt when he takes a deep breath. Patient is easily aroused but sleepy and confused. Afebrile. WBC is elevated. LFTs remain elevated. Started on Levaquin by [facility]. Patient is a 76-year-old male, percent to the hospital complaining of not feeling well for the last week. Patient was taken to his primary care's office and he was noted to be confused and disoriented, and had low blood pressure. He was taken to the hospital and evaluation revealed a very low sodium of 115, and creatinine of 3+. Patient also apparently had a low hemoglobin on a CBC done in the rehabilitation facility. While in the ED, patient coded, and was successfully resuscitated. His history significant for a recent admission from January 04 up to January 25. At that time he was found confused, and admitted at [facility]. He had evidence of bilateral adrenal hemorrhage, also had some ileus, as well as a nonocclusive thrombus in his right lower extremity. He was felt to be high risk for hemorrhage, so an IVC filter was placed during that admission. He was positive for lupus anticoagulant, and MTHFR gene mutation, heterozygous state. He was discharged on prednisone tapered over 13 days, and it was apparently completed around February 08. Patient has been in the rehabilitation facility since he was discharged from the hospital January 25. [facility] Past Family Social History Allergies: Coded Allergies: No Known Allergies (Unverified , 02/14/17) Past Medical History HTN Hx DVT in right lower extremity Depression Anxiety Chronic Right Lower Extremity Wound in the Medial Aspect of His Right Ankle bilateral adrenal hemorrhages IVC filter placement recently. Past Surgical History IVC filter placement Right lower extremity vein stripping Vasectomy Hernia repair Physical Exam Vital Signs Date Time Temp Pulse Resp B/P Pulse Ox O2 Delivery O2 Flow Rate FiO2 02/17/17 10:00 108 02/17/17 08:15 97 02/17/17 08:00 97.8 98 19 158/98 97 02/17/17 08:00 98 02/17/17 06:00 96 02/17/17 04:00 98.1 101 28 95 02/17/17 04:00 100 02/17/17 02:00 104 02/17/17 00:00 103 02/17/17 00:00 99.1 103 30 129/76 98 02/16/17 22:00 125 02/16/17 20:30 96 21 02/16/17 20:00 98.9 117 29 129/64 96 02/16/17 20:00 117 02/16/17 18:00 124 02/16/17 16:00 125 02/16/17 16:00 98.2 125 22 149/63 93 Arterial Line 02/16/17 14:00 116 02/16/17 12:00 117 02/16/17 12:00 98.5 117 20 121/59 96 129/68 02/16/17 02/16/17 02/17/17 15:00 23:00 07:00 Intake Total 1444 ml 1142 ml 1222 ml Output Total 675 ml 600 ml 1000 ml Balance 769 ml 542 ml 222 ml Intake Oral 480 ml 355 ml 355 ml IV Total 964 ml 787 ml 867 ml Output Urine Total 675 ml 600 ml 1000 ml # Bowel Movements 0 0 Laboratory Tests Test 02/15/17 02/16/17 02/16/17 02/16/17 23:05 04:20 07:45 17:45 Haptoglobin 217 MG/DL White Blood Count 20.6 TH/MM3 23.5 TH/MM3 22.5 TH/MM3 Red Blood Count 2.59 MIL/MM3 2.58 MIL/MM3 2.56 MIL/MM3 Hemoglobin 7.6 GM/DL 7.8 GM/DL 7.6 GM/DL Hematocrit 22.0 % 21.9 % 22.2 % Mean Corpuscular Volume 84.8 FL 84.9 FL 86.6 FL Mean Corpuscular Hemoglobin 29.3 PG 30.2 PG 29.6 PG Mean Corpuscular Hemoglobin 34.6 % 35.5 % 34.2 % Concent Red Cell Distribution Width 16.4 % 16.4 % 16.7 % Platelet Count 287 TH/MM3 307 TH/MM3 321 TH/MM3 Mean Platelet Volume 8.3 FL 8.3 FL 8.1 FL Neutrophils (%) (Auto) 96.4 % 95.9 % Lymphocytes (%) (Auto) 1.5 % 1.6 % Monocytes (%) (Auto) 2.0 % 2.4 % Eosinophils (%) (Auto) 0.0 % 0.0 % Basophils (%) (Auto) 0.1 % 0.1 % Neutrophils # (Auto) 19.8 TH/MM3 22.5 TH/MM3 Lymphocytes # (Auto) 0.3 TH/MM3 0.4 TH/MM3 Monocytes # (Auto) 0.4 TH/MM3 0.6 TH/MM3 Eosinophils # (Auto) 0.0 TH/MM3 0.0 TH/MM3 Basophils # (Auto) 0.0 TH/MM3 0.0 TH/MM3 CBC Comment DIFF FINAL DIFF FINAL Differential Comment Test 02/17/17 02/17/17 07:00 10:51 White Blood Count 20.1 TH/MM3 18.6 TH/MM3 Red Blood Count 2.55 MIL/MM3 2.66 MIL/MM3 Hemoglobin 7.5 GM/DL 7.9 GM/DL Hematocrit 22.4 % 23.5 % Mean Corpuscular Volume 87.9 FL 88.3 FL Mean Corpuscular Hemoglobin 29.5 PG 29.7 PG Mean Corpuscular Hemoglobin 33.6 % 33.7 % Concent Red Cell Distribution Width 16.4 % 16.3 % Platelet Count 327 TH/MM3 333 TH/MM3 Mean Platelet Volume 8.4 FL 7.9 FL Neutrophils (%) (Auto) 94.7 % 95.6 % Lymphocytes (%) (Auto) 2.2 % 1.6 % Monocytes (%) (Auto) 3.0 % 2.6 % Eosinophils (%) (Auto) 0.0 % 0.0 % Basophils (%) (Auto) 0.1 % 0.2 % Neutrophils # (Auto) 19.0 TH/MM3 17.7 TH/MM3 Lymphocytes # (Auto) 0.4 TH/MM3 0.3 TH/MM3 Monocytes # (Auto) 0.6 TH/MM3 0.5 TH/MM3 Eosinophils # (Auto) 0.0 TH/MM3 0.0 TH/MM3 Basophils # (Auto) 0.0 TH/MM3 0.0 TH/MM3 CBC Comment DIFF FINAL DIFF FINAL Differential Comment Laboratory Tests Test 02/15/17 02/15/17 02/16/17 02/17/17 11:55 23:05 04:20 07:00 Serum Osmolality 289 MOSM/KG Sodium Level 127 MEQ/L 128 MEQ/L 131 MEQ/L Potassium Level 3.5 MEQ/L 3.5 MEQ/L 3.3 MEQ/L Chloride Level 87 MEQ/L 88 MEQ/L 94 MEQ/L Carbon Dioxide Level 25.5 MEQ/L 24.5 MEQ/L 22.0 MEQ/L Anion Gap 15 MEQ/L 16 MEQ/L 15 MEQ/L Blood Urea Nitrogen 47 MG/DL 48 MG/DL 36 MG/DL Creatinine 3.34 MG/DL 3.13 MG/DL 2.19 MG/DL Estimat Glomerular Filtration 18 ML/MIN 20 ML/MIN 29 ML/MIN Rate Random Glucose 252 MG/DL 238 MG/DL 163 MG/DL Calcium Level 8.0 MG/DL 8.3 MG/DL 7.8 MG/DL Lactate Dehydrogenase 429 U/L Total Bilirubin 0.4 MG/DL 0.4 MG/DL Aspartate Amino Transf 525 U/L 280 U/L (AST/SGOT) Alanine Aminotransferase 927 U/L 827 U/L (ALT/SGPT) Alkaline Phosphatase 187 U/L 190 U/L Total Protein 5.8 GM/DL 5.7 GM/DL Albumin 2.4 GM/DL 2.4 GM/DL Microbiology Date/Time Procedure Status Source Growth 02/14/17 12:05 Aerobic Blood Culture - Preliminary Resulted Blood Peripheral NO GROWTH IN 3 DAYS 02/14/17 12:05 Anaerobic Blood Culture - Preliminary Resulted Staphylococcus Epidermidis Streptococcus Species 02/14/17 12:14 Aerobic Blood Culture - Preliminary Resulted Blood Peripheral NO GROWTH IN 3 DAYS 02/14/17 12:14 Anaerobic Blood Culture - Preliminary Resulted Blood Peripheral NO GROWTH IN 3 DAYS 02/15/17 08:05 Gram Stain - Final Complete Sputum Endotracheal 02/15/17 08:05 Sputum Culture - Final Complete Sputum Endotracheal HEAVY GROWTH NORMAL RESPIRATORY CONCEPCIÓN 02/15/17 17:30 Aerobic Blood Culture - Preliminary Resulted Blood Peripheral NO GROWTH IN 2 DAYS 02/15/17 17:30 Anaerobic Blood Culture - Final Resulted Blood Peripheral QNS - SEE AEROBE REPORT 02/15/17 23:37 Aerobic Blood Culture - Preliminary Resulted Blood Peripheral NO GROWTH IN 2 DAYS 02/15/17 23:37 Anaerobic Blood Culture - Preliminary Resulted Blood Peripheral NO GROWTH IN 2 DAYS GENERAL: Patient is in no acute distress. Confused. HEENT: ABDIRAHMAN. EOMI, No icterus. NECK: Supple. No adenopathy. LUNGS: Rhonchi at r. base. CARDIAC: Regular rate and rhythm. ABDOMEN: Soft, Positive bowel sounds. non tender. no masses. EXTREMITIES: No CCE. Superficial ulcer at r tibia. SKIN: No rash. NEURO: Confused but following commands. Imaging RADIOLOGY STUDIES/FILMS REVIEWED Lower Extremity Ultrasound 02/16/17 0000 Signed Impressions: Service Date/Time: Thursday, February 16, 2017 15:38 - CONCLUSION: Bilateral DVT as above. DVT on the left is no since January 04. Santos Arce MD Liver Ultrasound 02/16/17 0000 Signed Impressions: Service Date/Time: Thursday, February 16, 2017 07:43 - CONCLUSION: There is no intrahepatic biliary duct dilatation. Garrison Clinton MD FACR Chest X-Ray 02/15/17 0600 Signed Impressions: Service Date/Time: Wednesday, February 15, 2017 04:23 - CONCLUSION: No change. Lungs remain reasonably clear. Santos Arce MD Head CT 02/14/17 1152 Signed Impressions: Service Date/Time: February 12:22 - CONCLUSION: 1. No acute intracranial abnormality. Flash Clinton MD Abdomen/Pelvis CT 02/14/17 0000 Signed Impressions: Service Date/Time: February 14:38 - CONCLUSION: 1. Mild gaseous distention of the cecum. 2. Very minimal right basilar effusion. 3. No focal abscess identified. 4. Minimal left inguinal hernia. Flash Clinton MD Assessment and Plan IMPRESSION Confusion due to severe hyponatremia, Hypotension likely due to adrenal crisis, improved, off pressors, on solucortef Fevers. source? - afebrile - One BC with Staph epi and strep likely contaminant, has no lines when he came in Has lupus anticoagulant - has bilateral DVT LE and fred adrenal hemorrhage during last admission - has IVC filter in place, felt to be high risk for anticoagulation tx Renal insufficiency due to dehydration, hypotension S/P arrest due to hypotension from adrenal crisis Leukocytosis. ? source. ? pulmonary. RECOMMENDATION Follow repeat 2 BC today. Continue levaquin. Check urine culture - still has samaniego. Follow C/S Monitor WBC. Monitor progress Dr. Otero back in am. Maverick Gallardo MD Feb 17, 2017 11:37
--- NOTE | 2017-02-17 12:29 | HHI.NPPN ---
Subjective History of Present Illness 76 y/o male who was recently discharged s/p hospitalization for adrenal hemorrhage and SBO. He was placed on a prednisone taper which ended on 02/08. He had not been feeling well for the past week, and was sent to Dr. Trevino' office on 02/14 for evaluation, where he was noted to be confused and disoriented and hypotensive and she was then sent to the ER. He had been noted to have a drop in hemoglobin at the rehabilitation a few days back. Patient was evaluated in the ER and was noted to have an altered mental status with sodium of 115, acute kidney injury with creatinine 3.83, potassium 6.2 and significant metabolic acidosis with bicarbonate of 15.8. His hemoglobin was 7. Additional Remarks Patient is alert, no headache, feeling better. Review of Systems General Constitutional: Fatigue Cardiovascular Cardiac: MITCHELL Objective Data Data 02/16/17 02/17/17 19:00 07:00 Intake Total 1444 ml 2364 ml Output Total 675 ml 1600 ml Balance 769 ml 764 ml Intake Oral 480 ml 710 ml IV Total 964 ml 1654 ml Output Urine Total 675 ml 1600 ml # Bowel Movements 0 Vital Signs Date Time Temp Pulse Resp B/P Pulse Ox O2 Delivery O2 Flow Rate FiO2 02/17/17 10:00 108 02/17/17 08:15 97 02/17/17 08:00 97.8 98 19 158/98 97 02/17/17 08:00 98 02/17/17 06:00 96 02/17/17 04:00 98.1 101 28 95 02/17/17 04:00 100 02/17/17 02:00 104 02/17/17 00:00 103 02/17/17 00:00 99.1 103 30 129/76 98 02/16/17 22:00 125 02/16/17 20:30 96 21 02/16/17 20:00 98.9 117 29 129/64 96 02/16/17 20:00 117 02/16/17 18:00 124 02/16/17 16:00 125 02/16/17 16:00 98.2 125 22 149/63 93 Arterial Line 02/16/17 14:00 116 -: 02/17/17 1051 02/17/17 0700 Physical Exam General Appearance: No Acute Distress, Comfortable Eyes Eye Exam: Pupils Equal Throat Throat Exam: Oral Mucosa [place] & Moist Neck Neck Exam: Neck Supple Pulmonary Resp Exam: Breath Sounds Equal, No Distress, Rhonchi, Decreased Bases Cardiology CV Exam: Regular, Normal Sinus Rhythm Gastrointestinal/Abdomen GI Exam: Soft, Non-Tender, Bowel Sounds Present Extremeties Extremities Exam: Trace Edema Neurologic Neuro Exam: Alert, Awake Psychiatric Psych Exam: Appropriate Responses Assessment/Plan Problem List: (1) TIBURCIO (acute kidney injury) Plan: In a patient who had normal creatinine in early January (1.05), 1.3 at discharge January 2017 TIBURCIO likely due to hypoperfusion from sepsis, later suffered cardiac arrest. May have progressed to ATN he is making good amount of urine acidosis corrected, off bicarb drip, on IVF continue 0.9% NS UA without infection Creatinine continue to improve. Continue IVF and antibiotics. (2) Hyponatremia Plan: Improving he he is not hypervolemic, continue NS and monitor response check serum osmolality, urine sodium and osmolality (3) Acute hyperkalemia Plan: due to renal failure, improved monitor (4) Altered mental status Plan: improving, likely due to adrenal insufficiency, sepsis, hyponatremia continue to monitor, he is awake now (5) s/p adrenal hemrhage Plan: with suspected adrenal insufficiency after stopping prednisone continue Decadron BID (6) Elevated liver function tests Plan: suspected shock liver, monitor (7) DVT (deep venous thrombosis) Plan: s/p IVC filter (8) Sepsis Plan: positive blood cultures reported he was given vancomycin and zosyn (9) Anemia Plan: given 2 units PRBC hematology has been consulted Problem Qualifiers (1) DVT (deep venous thrombosis): Rakan Davis MD Feb 17, 2017 12:29
[2017-02-17] MEDS: HEPARIN-D5W INJ 250 ML IV SCH (12:55)
[2017-02-17] MEDS: ACETAMINOPHEN 650 MG/20.3 ML UDC PO PRN (20:01)
[2017-02-18] VITALS (18 sets, daily range): BP systolic 122–170; BP diastolic 74–102; PULSE 79–108; RESP 15–35; TEMP 96.2–98.7; O2SAT 96–100
[2017-02-18] MEDS: INSULIN NovoLIN REGULAR SUPPLEMENTAL SCALE SQ SCH ×4 (01:15→21:02)
[2017-02-18] MEDS: RESP: ALBUTEROL 2.5 MG/IPRATROPIUM 0.5 MG NEB (SCH) NEB ×3 (02:38→15:58)
[2017-02-18] MEDS: CHLORHEXIDINE GLUCONATE 2 % 1 PACK (2 CLOTHS)(taper/protocol) TOPICAL SCH (04:00)
[2017-02-18] MEDS: CHLORHEXIDINE GLUCONATE 2 % 1 PACK (2 CLOTHS) TOP SCH (04:00)
[2017-02-18] MEDS: HYDROCORTISONE SOD SUCCINATE 100 MG VIAL IV PUSH SCH ×2 (05:26→18:51)
[2017-02-18] MEDS: SODIUM CHLOR 0.9% 1000 ML INJ 1,000 ML IV SCH ×2 (05:27→10:43)
[2017-02-18] MEDS: HEPARIN-D5W INJ 250 ML IV SCH ×2 (05:29→22:22)
[2017-02-18] MEDS: ACETAMINOPHEN 650 MG/20.3 ML UDC PO PRN (05:55)
[2017-02-18 06:52] LABS: AUTOMATED NEUTROPHIL # 13.3 TH/MM3 (1.8-7.7); BASOPHIL % 0.1 % (0.0-2.0); EOSINOPHIL % 0.1 % (0.0-4.0); HEMATOCRIT 21.2 % (39.0-51.0); HEMO FLAGS DIFF FINAL; LYMPH % 5.2 % (9.0-44.0); LYMPHOCYTE # 0.8 TH/MM3 (1.0-4.8); MEAN CELL VOLUME 86.9 FL (80.0-100.0); MEAN CORPUSCULAR HEMOGLOBIN 30.4 PG (27.0-34.0); MONO % 4.4 % (0.0-8.0); NEUT % 90.2 % (16.0-70.0); PLATELET COUNT 347 TH/MM3 (150-450); RED BLOOD COUNT 2.44 MIL/MM3 (4.50-5.90); RED CELL DISTRIBUTION WIDTH 16.7 % (11.6-17.2); WHITE BLOOD COUNT 14.8 TH/MM3 (4.0-11.0)
[2017-02-18 07:01] LABS: APTT (PATIENT) 51.1 SEC (24.3-30.1)
[2017-02-18 07:11] LABS: ALT (GPT) 683 U/L (12-78); ANION GAP 12 MEQ/L (5-15); AST (GOT) 198 U/L (15-37); BICARBONATE 25.9 MEQ/L (21.0-32.0); BLOOD UREA NITROGEN 29 MG/DL (7-18); CHLORIDE 99 MEQ/L (98-107); GLOMERULAR FILTRATION RATE 43 ML/MIN (>89); POTASSIUM 3.3 MEQ/L (3.5-5.1); SODIUM (NA) 137 MEQ/L (136-145)
[2017-02-18 07:13] LABS: ALKALINE PHOSPHATASE 188 U/L (45-117); TOTAL BILIRUBIN ADULT 0.4 MG/DL (0.2-1.0)
[2017-02-18] MEDS: CHLORHEXIDINE 0.12% (ORAL KIT) 15 ML CUP MT SCH ×2 (08:00→20:00)
[2017-02-18] MEDS ORDERED: POTASSIUM CHLORIDE 10 MEQ CONTROLLED RELEASE TAB PO ONE (08:30)
[2017-02-18] MEDS: SODIUM CHLORIDE 0.9% FLUSH 10 ML FLUSH IV FLUSH SCH ×2 (09:00→21:06)
--- NOTE | 2017-02-18 10:04 | HHI.IDPN ---
Subjective Subjective Remarks Notes reviewed Temps ok Main complaint is his cough - he gets a tickle in his throat and makes him cough , brings up white phlegm No new (+) BC Has fred DVT - on heparin drip No bleeding Not SOB, no chest pain Denies swallowing problem No N/V Started on Levaquin by [facility] Antibiotics Levaquin Lines PIV Past Medical History HTN Hx DVT in right lower extremity Depression Anxiety Chronic Right Lower Extremity Wound in the Medial Aspect of His Right Ankle bilateral adrenal hemorrhages IVC filter placement recently. Past Surgical History IVC filter placement Right lower extremity vein stripping Vasectomy Hernia repair Allergies: Coded Allergies: No Known Allergies (Unverified , 02/14/17) Objective . Vital Signs Date Time Temp Pulse Resp B/P Pulse Ox O2 Delivery O2 Flow Rate FiO2 02/18/17 08:45 96 Nasal Cannula 2.00 02/18/17 06:00 90 02/18/17 04:00 98.2 83 16 165/101 100 02/18/17 04:00 89 02/18/17 02:00 79 02/18/17 00:00 98.7 106 18 162/92 97 02/18/17 00:00 106 02/17/17 22:00 114 02/17/17 21:01 96 21 02/17/17 20:00 98.7 106 22 161/93 97 02/17/17 20:00 106 02/17/17 18:00 97 02/17/17 16:00 101 02/17/17 16:00 98.0 101 24 131/82 96 02/17/17 14:00 96 02/17/17 12:00 108 02/17/17 12:00 98.1 108 22 148/81 93 02/17/17 10:00 108 02/17/17 02/17/17 02/18/17 15:00 23:00 07:00 Intake Total 1767 ml 1209 ml 1130 ml Output Total 1000 ml 1000 ml 1250 ml Balance 767 ml 209 ml -120 ml Intake Oral 600 ml 355 ml 355 ml IV Total 1167 ml 854 ml 775 ml Output Urine Total 1000 ml 1000 ml 1250 ml # Bowel Movements 0 0 . Laboratory Tests Test 02/16/17 02/17/17 02/17/17 02/18/17 17:45 07:00 10:51 04:54 White Blood Count 22.5 TH/MM3 20.1 TH/MM3 18.6 TH/MM3 14.8 TH/MM3 Red Blood Count 2.56 MIL/MM3 2.55 MIL/MM3 2.66 MIL/MM3 2.44 MIL/MM3 Hemoglobin 7.6 GM/DL 7.5 GM/DL 7.9 GM/DL 7.4 GM/DL Hematocrit 22.2 % 22.4 % 23.5 % 21.2 % Mean Corpuscular Volume 86.6 FL 87.9 FL 88.3 FL 86.9 FL Mean Corpuscular Hemoglobin 29.6 PG 29.5 PG 29.7 PG 30.4 PG Mean Corpuscular Hemoglobin 34.2 % 33.6 % 33.7 % 35.0 % Concent Red Cell Distribution Width 16.7 % 16.4 % 16.3 % 16.7 % Platelet Count 321 TH/MM3 327 TH/MM3 333 TH/MM3 347 TH/MM3 Mean Platelet Volume 8.1 FL 8.4 FL 7.9 FL 8.1 FL Neutrophils (%) (Auto) 94.7 % 95.6 % 90.2 % Lymphocytes (%) (Auto) 2.2 % 1.6 % 5.2 % Monocytes (%) (Auto) 3.0 % 2.6 % 4.4 % Eosinophils (%) (Auto) 0.0 % 0.0 % 0.1 % Basophils (%) (Auto) 0.1 % 0.2 % 0.1 % Neutrophils # (Auto) 19.0 TH/MM3 17.7 TH/MM3 13.3 TH/MM3 Lymphocytes # (Auto) 0.4 TH/MM3 0.3 TH/MM3 0.8 TH/MM3 Monocytes # (Auto) 0.6 TH/MM3 0.5 TH/MM3 0.6 TH/MM3 Eosinophils # (Auto) 0.0 TH/MM3 0.0 TH/MM3 0.0 TH/MM3 Basophils # (Auto) 0.0 TH/MM3 0.0 TH/MM3 0.0 TH/MM3 CBC Comment DIFF FINAL DIFF FINAL DIFF FINAL Differential Comment Laboratory Tests Test 02/17/17 02/18/17 07:00 04:54 Sodium Level 131 MEQ/L 137 MEQ/L Potassium Level 3.3 MEQ/L 3.3 MEQ/L Chloride Level 94 MEQ/L 99 MEQ/L Carbon Dioxide Level 22.0 MEQ/L 25.9 MEQ/L Anion Gap 15 MEQ/L 12 MEQ/L Blood Urea Nitrogen 36 MG/DL 29 MG/DL Creatinine 2.19 MG/DL 1.59 MG/DL Estimat Glomerular Filtration 29 ML/MIN 43 ML/MIN Rate Random Glucose 163 MG/DL 118 MG/DL Calcium Level 7.8 MG/DL 8.1 MG/DL Total Bilirubin 0.4 MG/DL 0.4 MG/DL Aspartate Amino Transf 280 U/L 198 U/L (AST/SGOT) Alanine Aminotransferase 827 U/L 683 U/L (ALT/SGPT) Alkaline Phosphatase 190 U/L 188 U/L Total Protein 5.7 GM/DL 5.5 GM/DL Albumin 2.4 GM/DL 2.3 GM/DL Microbiology Date/Time Procedure Status Source Growth 02/15/17 17:30 Aerobic Blood Culture - Preliminary Resulted Blood Peripheral NO GROWTH IN 2 DAYS 02/15/17 17:30 Anaerobic Blood Culture - Final Resulted Blood Peripheral QNS - SEE AEROBE REPORT 02/15/17 23:37 Aerobic Blood Culture - Preliminary Resulted Blood Peripheral NO GROWTH IN 2 DAYS 02/15/17 23:37 Anaerobic Blood Culture - Preliminary Resulted Blood Peripheral NO GROWTH IN 2 DAYS Imaging Last Impressions Lower Extremity Ultrasound 02/16/17 0000 Signed Impressions: Service Date/Time: Thursday, February 16, 2017 15:38 - CONCLUSION: Bilateral DVT as above. DVT on the left is no since January 04. Santos Arce MD Liver Ultrasound 02/16/17 0000 Signed Impressions: Service Date/Time: Thursday, February 16, 2017 07:43 - CONCLUSION: There is no intrahepatic biliary duct dilatation. Garrison Clinton MD FACR Chest X-Ray 02/15/17 0600 Signed Impressions: Service Date/Time: Wednesday, February 15, 2017 04:23 - CONCLUSION: No change. Lungs remain reasonably clear. Santos Arce MD Head CT 02/14/17 1152 Signed Impressions: Service Date/Time: February 12:22 - CONCLUSION: 1. No acute intracranial abnormality. Flash Clinton MD Abdomen/Pelvis CT 02/14/17 0000 Signed Impressions: Service Date/Time: February 14:38 - CONCLUSION: 1. Mild gaseous distention of the cecum. 2. Very minimal right basilar effusion. 3. No focal abscess identified. 4. Minimal left inguinal hernia. Flash Clinton MD Physical Exam GENERAL: awake and alert, not in respiratory distress. SKIN: Warm and dry. Has scattered hypopigmented macules scattered in both UE, upper chest and a few in the LE EYES: [place] conjunctiva. No petechia or hemorrhage. No scleral icterus. No injection or drainage. EARS, NOSE AND THROAT: Nose without bleeding or purulent nasal discharge. No sinus tenderness. Mucous membranes pink and moist. No oral lesions noted. No exudate. No oral thrush. NECK: Trachea midline. Supple and not tender, no meningeal signs CARDIOVASCULAR: regular rate and rhythm. No murmurs, rubs or gallops heard RESPIRATORY: Clear to auscultation. Breath sounds equal bilaterally. No rales , wheezing or rhonchi. Decreased BS at bases ABDOMEN: Soft, non-tender, nondistended. Bowel sounds present and normoactive. No guarding. No rebound. No organomegaly. EXTREMITIES: No clubbing, cyanosis. LLE looks bigger compared to his RLE. No joint effusion, has good ROM. No calf tenderness. Well perfused and warm. Wound R ankle, with no evidence of infection. No evidence of phlebitis in both UE from previous lines NEUROLOGICAL: Awake and alert. Cranial nerves grossly intact. Motor grossly within normal limits. PSYCHIATRIC: Normal affect, calm and cooperative. LINE: PIV with no evidence of infection : Parada cath in place with no evidence of infection Assessment & Plan Remarks IMPRESSION Confusion due to severe hyponatremia, better, but still low 124, came in 115 Hypotension likely due to adrenal crisis, improved, off pressors, on solucortef Fevers, resolved - afebrile today - CXR negative, no PNA symptoms - UA ok - CT A/P ok - One BC with Staph epi likely contaminant, has no lines when he came in Has lupus anticoagulant - had DVT BLE and fred adrenal hemorrhage during last admission - has IVC filter in place - on heparin now; being monitored for bleeding Leukocytosis, better - ?due to BLE DVT Renal insufficiency due to dehydration, hypotension - better S/P arrest due to hypotension from adrenal crisis RECOMMENDATION Currently on Levaquin per [facility] Spoke with RN about getting UA and C/S - ordered yesterday Repeat CXR Try Cepacol for his cough and tickle in his throat Follow C/S Monitor progress Follow CBC D/W RN Explained plan to the patient Joselyn Otero MD Feb 18, 2017 10:04 Joselyn Otero MD Feb 18, 2017 10:04
[2017-02-18] MEDS: guaiFENesin SOLUTION 200 MG/10 ML CUP PO PRN ×3 (10:37→23:12)
[2017-02-18] MEDS: PANTOPRAZOLE SODIUM 40 MG VIAL IV SCH (10:38)
[2017-02-18] MEDS: METOPROLOL TARTRATE 25 MG TAB PO SCH ×3 (10:38→21:02)
[2017-02-18] MEDS: SENNOSIDES SYRUP 8.8 MG/5 ML CUP PO SCH (10:38)
[2017-02-18] MEDS: DOCUSATE SODIUM 100 MG/10 ML UDC PO SCH ×2 (10:38→21:02)
[2017-02-18] MEDS: LEVOFLOXACIN 250 MG TAB PO SCH (10:40)
[2017-02-18] MEDS ORDERED: LEVOFLOXACIN 250 MG PREMIX INJ 50 ML IV SCH (11:00)
--- NOTE | 2017-02-18 11:01 | HHI.NPPN ---
Subjective Renal Failure: Acute Interval History Renal function is better. He is able to feed himself this morning. Reporting cough. (Radha Fernandez) Review of Systems General Constitutional: Fatigue (Radha Fernandez) Respiratory Lungs: Cough (Radha Fernandez) Cardiovascular Cardiac: MITCHELL (Radha Fernandez) Objective Data Data 02/17/17 02/18/17 19:00 07:00 Intake Total 1767 ml 2339 ml Output Total 1000 ml 2250 ml Balance 767 ml 89 ml Intake Oral 600 ml 710 ml IV Total 1167 ml 1629 ml Output Urine Total 1000 ml 2250 ml # Bowel Movements 0 Vital Signs Date Time Temp Pulse Resp B/P Pulse Ox O2 Delivery O2 Flow Rate FiO2 02/18/17 10:26 102 30 122/74 99 02/18/17 10:26 102 02/18/17 10:00 108 24 122/74 97 02/18/17 10:00 108 02/18/17 09:01 89 33 170/91 100 02/18/17 09:01 89 02/18/17 09:00 89 31 170/102 100 170/102 02/18/17 09:00 89 02/18/17 08:45 96 Nasal Cannula 2.00 02/18/17 08:01 100 02/18/17 08:01 100 35 153/91 99 02/18/17 08:00 93 02/18/17 08:00 98.0 93 25 153/91 99 02/18/17 07:01 92 02/18/17 07:00 92 02/18/17 06:00 90 02/18/17 04:00 98.2 83 16 165/101 100 02/18/17 04:00 89 02/18/17 02:00 79 02/18/17 00:00 98.7 106 18 162/92 97 02/18/17 00:00 106 02/17/17 22:00 114 02/17/17 21:01 96 21 02/17/17 20:00 98.7 106 22 161/93 97 02/17/17 20:00 106 02/17/17 18:00 97 02/17/17 16:00 101 02/17/17 16:00 98.0 101 24 131/82 96 02/17/17 14:00 96 02/17/17 12:00 108 02/17/17 12:00 98.1 108 22 148/81 93 (Radha Fernandez) -: 02/18/17 0454 02/18/17 0454 Imaging Last 72 hours Impressions Lower Extremity Ultrasound 02/16/17 0000 Signed Impressions: Service Date/Time: Thursday, February 16, 2017 15:38 - CONCLUSION: Bilateral DVT as above. DVT on the left is no since January 04. Santos Arce MD Liver Ultrasound 02/16/17 0000 Signed Impressions: Service Date/Time: Thursday, February 16, 2017 07:43 - CONCLUSION: There is no intrahepatic biliary duct dilatation. Garrison Clinton MD FACR Drip Comment heparin gtt (Radha Fernandez) Physical Exam General Appearance: Well Developed, Well Nourished, No Acute Distress, Comfortable ( Radha Fernandez) Eyes Eye Exam: Pupils Equal (Radha Fernandez) Throat Throat Exam: Oral Mucosa [place] & Moist (Radha Fernandez) Neck Neck Exam: Neck Supple, Trachea Midline (Radha Fernandez) Pulmonary Resp Exam: Breath Sounds Equal, No Distress, Rhonchi, Decreased Bases (Radha Fernandez) Cardiology CV Exam: Regular, Normal Sinus Rhythm, Good Perfusion (Radha Fernandez) Gastrointestinal/Abdomen GI Exam: Soft, Non-Tender, Bowel Sounds Present (Radha Fernandez) Genitourinary Exam: Clear Urine (Radha Fernandez) Musculoskeletal MS Exam: Joints Intact, Normal Tone, Unable to Ambulate (Radha Fernandez) Integumentary Skin Exam: Clear, Warm, Dry, Intact (Radha Fernandez) Extremeties Extremities Exam: No Edema, Pedal Pulses Palpable (Radha Fernandez) Neurologic Neuro Exam: Alert, Awake, Oriented, Speech Clear, Moving All Extremities ( Radha Fernandez) Psychiatric Psych Exam: Appropriate Responses (Radha Fernandez) VTE Prophylaxis Meds: Heparin (Radha Fernandez) Assessment/Plan Discussed Condition With: Patient Assessment Summary: TIBURCIO/Acute Renal Failure Problem List: (1) TIBURCIO (acute kidney injury) Plan: In a patient who had normal creatinine in early January (1.05), 1.3 at discharge January 2017 TIBURCIO likely due to hypoperfusion from sepsis, later suffered cardiac arrest. May have progressed to ATN renal function improved hypokalemic, replacement ordered he is making good amount of urine complaining of cough, stop IVF remove samaniego tomorrow renal panel in am (2) Hyponatremia Plan: corrected, stop IVF (3) Acute hyperkalemia Plan: now hypokalemic, replace and monitor (4) Altered mental status Plan: improving, likely due to adrenal insufficiency, sepsis, hyponatremia continue to monitor, he is awake/alert now (5) s/p adrenal hemrhage Plan: with suspected adrenal insufficiency after stopping prednisone continue Decadron BID (6) Elevated liver function tests Plan: suspected shock liver, monitor (7) DVT (deep venous thrombosis) Plan: s/p IVC filter on heparin gtt conversion to coumadin planned (8) Sepsis Plan: repeat cultures are negative he is on oral Levaquin for suspected pneumonia (9) Anemia Plan: transfused since arrival. hematology is following (Radha Fernandez) Plan patient was seen and examined. Agree with above assessment and plan. Renal function has improved. (Wilman Palma MD) Problem Qualifiers (1) DVT (deep venous thrombosis): Radha Fernandez Feb 18, 2017 11:01 Wilman Palma MD Feb 19, 2017 14:48
--- NOTE | 2017-02-18 11:16 | PD.ONC.PN ---
Subjective Subjective Remarks Afebrile overnight. Patient resting in bed. Tolerating heparin. No obvious bleeding. d/w rn Objective Data Date Time Temp Pulse Resp B/P Pulse Ox O2 Delivery O2 Flow Rate FiO2 02/18/17 10:26 102 30 122/74 99 02/18/17 10:26 102 02/18/17 10:00 108 24 122/74 97 02/18/17 10:00 108 02/18/17 09:01 89 33 170/91 100 02/18/17 09:01 89 02/18/17 09:00 89 31 170/102 100 170/102 02/18/17 09:00 89 02/18/17 08:45 96 Nasal Cannula 2.00 02/18/17 08:01 100 02/18/17 08:01 100 35 153/91 99 02/18/17 08:00 93 02/18/17 08:00 98.0 93 25 153/91 99 02/18/17 07:01 92 02/18/17 07:00 92 02/18/17 06:00 90 02/18/17 04:00 98.2 83 16 165/101 100 02/18/17 04:00 89 02/18/17 02:00 79 02/18/17 00:00 98.7 106 18 162/92 97 02/18/17 00:00 106 02/17/17 22:00 114 02/17/17 21:01 96 21 02/17/17 20:00 98.7 106 22 161/93 97 02/17/17 20:00 106 02/17/17 18:00 97 02/17/17 16:00 101 02/17/17 16:00 98.0 101 24 131/82 96 02/17/17 14:00 96 02/17/17 12:00 108 02/17/17 12:00 98.1 108 22 148/81 93 02/18/17 02/18/17 02/18/17 07:00 15:00 23:00 Intake Total 1130 ml Output Total 1250 ml Balance -120 ml Result Diagram: 02/18/17 0454 02/18/17 0454 Laboratory Results Laboratory Tests Test 02/18/17 04:54 White Blood Count 14.8 TH/MM3 Red Blood Count 2.44 MIL/MM3 Hemoglobin 7.4 GM/DL Hematocrit 21.2 % Mean Corpuscular Volume 86.9 FL Mean Corpuscular Hemoglobin 30.4 PG Mean Corpuscular Hemoglobin 35.0 % Concent Red Cell Distribution Width 16.7 % Platelet Count 347 TH/MM3 Mean Platelet Volume 8.1 FL Neutrophils (%) (Auto) 90.2 % Lymphocytes (%) (Auto) 5.2 % Monocytes (%) (Auto) 4.4 % Eosinophils (%) (Auto) 0.1 % Basophils (%) (Auto) 0.1 % Neutrophils # (Auto) 13.3 TH/MM3 Lymphocytes # (Auto) 0.8 TH/MM3 Monocytes # (Auto) 0.6 TH/MM3 Eosinophils # (Auto) 0.0 TH/MM3 Basophils # (Auto) 0.0 TH/MM3 CBC Comment DIFF FINAL Differential Comment Activated Partial 51.1 SEC Thromboplast Time Sodium Level 137 MEQ/L Potassium Level 3.3 MEQ/L Chloride Level 99 MEQ/L Carbon Dioxide Level 25.9 MEQ/L Anion Gap 12 MEQ/L Blood Urea Nitrogen 29 MG/DL Creatinine 1.59 MG/DL Estimat Glomerular Filtration 43 ML/MIN Rate Random Glucose 118 MG/DL Calcium Level 8.1 MG/DL Total Bilirubin 0.4 MG/DL Aspartate Amino Transf 198 U/L (AST/SGOT) Alanine Aminotransferase 683 U/L (ALT/SGPT) Alkaline Phosphatase 188 U/L Total Protein 5.5 GM/DL Albumin 2.3 GM/DL Culture Results Microbiology Date/Time Procedure Status Source Growth 02/15/17 17:30 Aerobic Blood Culture - Preliminary Resulted Blood Peripheral NO GROWTH IN 2 DAYS 02/15/17 17:30 Anaerobic Blood Culture - Final Resulted Blood Peripheral QNS - SEE AEROBE REPORT 02/15/17 23:37 Aerobic Blood Culture - Preliminary Resulted Blood Peripheral NO GROWTH IN 2 DAYS 02/15/17 23:37 Anaerobic Blood Culture - Preliminary Resulted Blood Peripheral NO GROWTH IN 2 DAYS Administered Medications Medications (Trade) Dose Ordered Sig/Jose Route PRN Reason Start Time Stop Time Status Last Admin Dose Admin Sodium Chloride (NS Flush) 2 ml BID IV FLUSH 02/14/17 21:00 02/17/17 19:58 Chlorhexidine Gluconate (Peridex 0.12% Liq) 15 ml BID@08,20 MT 02/14/17 20:00 02/15/17 08:46 Pantoprazole Sodium (Protonix Inj) 40 mg DAILY IV 02/14/17 16:00 02/18/17 10:38 Chlorhexidine Gluconate (Chlorhexidine 2% Cloth) 3 pack Taper DAILY@04 TOP 02/15/17 04:00 02/11/18 03:59 02/18/17 04:00 Acetaminophen 650 mg 650 mg Q6H PRN PO TEMP >100.4 02/14/17 19:15 02/18/17 05:55 Norepinephrine Bitartrate (Levophed-Dextrose Drip) 250 ml @ 0 mls/hr TITRATE IV 02/15/17 02:45 02/15/17 02:49 Insulin Human Regular (NovoLIN R SUPPLEMENTAL SCALE) 1 Q6H SQ 02/16/17 07:15 02/17/17 18:21 Docusate Sodium 100 mg 100 mg Q12HR PO 02/16/17 21:00 02/18/17 10:38 Heparin Sodium/ Dextrose (Heparin-D5W Inj) 250 ml @ 0 mls/hr TITRATE IV 02/16/17 16:15 02/18/17 05:29 Hydrocortisone Sodium Succinate (SoluCORTEF INJ) 50 mg Q12H IV PUSH 02/17/17 18:00 02/18/17 05:26 Metoprolol Tartrate (Lopressor) 25 mg Q12HR PO 02/17/17 09:00 02/18/17 10:38 Sennosides (Senna Liq) 8.8 mg DAILY PO 02/17/17 09:00 02/18/17 10:38 Guaifenesin (Robitussin Liq) 200 mg Q4H PRN PO Cough 02/18/17 08:30 02/18/17 10:37 Objective Remarks GENERAL: Elderly male, sitting upright in bed. SKIN: Warm and dry. HEAD: Normocephalic. EYES: No injection or drainage. NECK: Supple, trachea midline. CARDIOVASCULAR: +S1/S2 RESPIRATORY: occasional rhonchi. on 2L O2 via NC GASTROINTESTINAL: Abdomen soft, non-tender, nondistended. EXTREMITIES: No cyanosis. bandage along rle is c/d/i. NEUROLOGICAL: awake and alert, normal speech. Assessment/Plan Problem List: (1) DVT (deep venous thrombosis) Status: Acute Plan: --chronic right lower extremity DVT --h/o bilateral adrenal hemorrhages --s/p IVC filter placement. --still at risk for further expansion of the DVT in lower extremity --h/o atrial fibrillation --currently on heparin gtt --can be transitioned to Coumadin if/when hgb remains stable. (2) Normocytic anemia Status: Acute Plan: --stool occult blood pending--no BM --LDH elevated, haptoglobin also elevated, bilirubin normal --marleny negative Assessment 76y/o male admitted with severe sepsis, AMS. Hematology consulted to make recommendations on anticoagulation in patient history of DVT with lupus anticoagulant and history of adrenal hemorrhages history of DVT and lupus anticoagulant with history of adrenal hemorrhages --While in the emergency room, he became bradycardic and he subsequently asystole. --underwent CPR ACLS protocol for about 15 minutes and he had return of spontaneous circulation. --s/p IVC filter placement Plan 1. monitor CBC 2. continue heparin drip 3. 1 unit pRBC Attending Statement The exam, history, and the medical decision-making described in the above note were completed with the assistance of the mid-level provider. I reviewed and agree with the findings presented. I attest that I had a [id number] encounter with the patient on the same day, and personally performed and documented my assessment and findings in the medical record Problem Qualifiers (1) DVT (deep venous thrombosis): Jeaneth Álvarez Feb 18, 2017 11:16 Anatoliy Arauz MD Feb 19, 2017 00:00
[2017-02-18] MEDS ORDERED: SODIUM CHLOR 0.9% 250 ML INJ 250 ML IV ONE (11:30)
[2017-02-18 12:18] LABS: BLOOD, URINE NEG (NEG); GLUCOSE,URINE 150 mg/dL (NEG); KETONE, URINE NEG (NEG); MUCUS URINE FEW /lpf (OCC); NITRITE,URINE NEG (NEG); SQUAMOUS EPITHELIAL CELL URINE <1 /hpf (0-5); TRANSITIONAL EPI CELLS, URINE <1 /hpf; URINE COLOR LIGHT-YELLOW (YELLW/STRAW)
[2017-02-18 12:20] LABS: COMMENT (UR) CATH-CULT NOT IND; CULTURE IF INDICATED CATH CULTURE NOT IND
[2017-02-18] MEDS ORDERED: ASCORBIC ACID 500 MG TAB PO ONE (14:45)
--- NOTE | 2017-02-18 15:11 | HHI.PR ---
Subjective Remarks Patient is feeling better. No confusion. LFTs are improving. Acute kidney injury is improving. Safe for transfer out of ICU. Objective Vital Signs Date Time Temp Pulse Resp B/P Pulse Ox O2 Delivery O2 Flow Rate FiO2 02/18/17 12:00 93 02/18/17 12:00 98.1 93 15 138/83 99 02/18/17 11:00 98 02/18/17 10:26 102 20 122/74 99 02/18/17 10:26 102 02/18/17 10:00 108 24 122/74 97 02/18/17 10:00 108 02/18/17 09:01 89 16 170/91 100 02/18/17 09:01 89 02/18/17 09:00 89 20 170/102 100 170/102 02/18/17 09:00 89 02/18/17 08:45 96 Nasal Cannula 2.00 02/18/17 08:01 100 02/18/17 08:01 100 16 153/91 99 02/18/17 08:00 93 02/18/17 08:00 98.0 93 16 153/91 99 02/18/17 07:01 92 02/18/17 07:00 92 02/18/17 06:00 90 02/18/17 04:00 98.2 83 16 165/101 100 02/18/17 04:00 89 02/18/17 02:00 79 02/18/17 00:00 98.7 106 18 162/92 97 02/18/17 00:00 106 02/17/17 22:00 114 02/17/17 21:01 96 21 02/17/17 20:00 98.7 106 22 161/93 97 02/17/17 20:00 106 02/17/17 18:00 97 02/17/17 16:00 101 02/17/17 16:00 98.0 101 24 131/82 96 I/O 02/17/17 02/17/17 02/17/17 02/18/17 02/18/17 02/18/17 07:00 15:00 23:00 07:00 15:00 23:00 Intake Total 1222 ml 1767 ml 1209 ml 1130 ml 360 ml Output Total 1000 ml 1000 ml 1000 ml 1250 ml 800 ml Balance 222 ml 767 ml 209 ml -120 ml -440 ml Intake Oral 355 ml 600 ml 355 ml 355 ml 360 ml IV Total 867 ml 1167 ml 854 ml 775 ml Output Urine Total 1000 ml 1000 ml 1000 ml 1250 ml 800 ml # Bowel Movements 0 0 0 Result Diagram: 02/18/1745302/18/17453 Objective Remarks GENERAL: NAD, A&Ox3 HEAD: Normocephalic. NECK: Supple, trachea midline. No lymphadenopathy. EYES: No scleral icterus. No injection or drainage. CARDIOVASCULAR: Regular rate and rhythm without murmurs, gallops, or rubs. RESPIRATORY: Breath sounds equal bilaterally. No accessory muscle use. GASTROINTESTINAL: Abdomen soft, non-tender, nondistended. MUSCULOSKELETAL: No cyanosis, or edema. SKIN: Warm and dry. NEURO: No focal neurological deficitis. A/P Problem List: (1) s/p adrenal hemrhage (2) TIBURCIO (acute kidney injury) ICD Code: N17.9 (3) Elevated liver function tests ICD Code: R79.89 (4) DVT (deep venous thrombosis) ICD Code: I82.409 (5) Altered mental status ICD Code: R41.82 (6) Sepsis ICD Code: A41.9 (7) Hyponatremia ICD Code: E87.1 (8) Anemia ICD Code: D64.9 (9) Acute hyperkalemia ICD Code: E87.5 Assessment and Plan Assessment and Plan 76-year-old male admitted with severe sepsis, encephalopathy, and renal failure with severe hyponatremia. Transfer out of ICU today. Continue to follow LFTs and acute kidney injury. Hyponatremia Resolved Follow sodium level Hyperkalemia Resolved Follow potassium levels Encephalopathy Returned to baseline Monitor for any recurrence Spontaneous Cardiac arrest status post CPR Tachycardia May have been metabolic in origin Follow on telemetry Continue Lopressor Metabolic acidosis Resolved Hypotension Resolved Anemia 2 units packed red blood cells transfused 02/14/17 Stabilized follow CBC Transfuse if needed History of bilateral adrenal hemorrhages Adrenal insufficiency hydrocortisone 50mg IV Q12 Acute kidney injury Improving through time Continue IV hydration Follow renal function Acute respiratory failure on mechanical ventilation Resolved Lupus anticoagulant positive Follow secondary studies History of DVT status post IVC filter Hypercoagulability state with lupus Heparin drip Follow hemoglobin Follow thrombocytes Sepsis Lactic acidosis GPC bacteremia Vancomycin Levaquin Infectious disease physician is also following Follow blood cultures History of COPD Respiratory failure Acute respiratory failure resolved Continue with oxygen keep sat >92% Bronchodilators, IS Elevated LFTs Follow liver function studies Etiology may be secondary to sepsis or hypoperfusion from hypotension Improving through time DVT Prophylaxis Heparin drip, SCDs Problem Qualifiers (1) DVT (deep venous thrombosis): Flash Del Valle MD Feb 18, 2017 15:11
[2017-02-18 23:42] LABS: TRANSFERRIN IRON PROFILE 130 MG/DL (200-360)
[2017-02-19] VITALS (12 sets, daily range): BP systolic 120–163; BP diastolic 71–101; PULSE 79–103; RESP 18–21; TEMP 95.8–97.8; O2SAT 97–100
[2017-02-19 00:06] LABS: FERRITIN 2430 NG/ML (26-388)
[2017-02-19] MEDS: METOPROLOL TARTRATE 25 MG TAB PO SCH ×3 (01:04→21:17)
[2017-02-19] MEDS: INSULIN NovoLIN REGULAR SUPPLEMENTAL SCALE SQ SCH ×3 (01:15→13:15)
[2017-02-19] MEDS: guaiFENesin SOLUTION 200 MG/10 ML CUP PO PRN ×2 (03:25→18:28)
[2017-02-19] MEDS: CHLORHEXIDINE GLUCONATE 2 % 1 PACK (2 CLOTHS) TOP SCH (03:29)
[2017-02-19] MEDS: HYDROCORTISONE SOD SUCCINATE 100 MG VIAL IV PUSH SCH ×2 (05:00→18:28)
[2017-02-19 07:10] LABS: HEMATOCRIT 29.7 % (39.0-51.0); MEAN CELL VOLUME 88.6 FL (80.0-100.0); MEAN CORPUSCULAR HEMOGLOBIN 29.8 PG (27.0-34.0); MEAN CORPUSCULAR HGB CONC 33.7 % (32.0-36.0); PLATELET COUNT 343 TH/MM3 (150-450); RED BLOOD COUNT 3.35 MIL/MM3 (4.50-5.90); RED CELL DISTRIBUTION WIDTH 15.7 % (11.6-17.2); REVIEW FLAG FINAL; WHITE BLOOD COUNT 14.8 TH/MM3 (4.0-11.0)
[2017-02-19 07:32] LABS: BICARBONATE 24.8 MEQ/L (21.0-32.0); POTASSIUM 3.7 MEQ/L (3.5-5.1)
[2017-02-19] MEDS: CHLORHEXIDINE 0.12% (ORAL KIT) 15 ML CUP MT SCH ×2 (08:00→20:00)
[2017-02-19] MEDS: LEVOFLOXACIN 250 MG TAB PO SCH (09:00)
--- NOTE | 2017-02-19 09:21 | RADRPT ---
EXAM DATE/TIME: 02/19/2017 08:56 [facility] COMPARISON: No previous studies available for comparison. INDICATIONS : Chest pain. MEDICAL HISTORY : Myocardial infarction. Chronic obstructive pulmonary disease. hypertension, dvt SURGICAL HISTORY : None. ENCOUNTER: Initial ACUITY: 4 - 6 days PAIN SCORE: 5/10 LOCATION: Bilateral chest FINDINGS: The lungs are hypoaerated. There is scattered airspace disease and mild interstitial prominence. Smal l bilateral effusions are noted. Heart is within normal limits in size. CONCLUSION: Interstitial prominence and mild air space disease. Small bilateral effusions. Matthew Aguirre MD on February 19, 2017 at 9:18 Board Certified Radiologist. This report was verified electronically.
--- NOTE | 2017-02-19 09:51 | HHI.NPPN ---
Subjective Renal Failure: Acute Interval History Renal function is better. samaniego has been removed. Cough persists. (Radha Fernandez) Review of Systems General Constitutional: Fatigue (Radha Fernandez) Respiratory Lungs: Cough (Radha Fernandez) Cardiovascular Cardiac: MITCHELL (Radha Fernandez) Objective Data Data 02/18/17 02/19/17 19:00 07:00 Intake Total 600 ml 635 ml Output Total 1175 ml 1425 ml Balance -575 ml -790 ml Intake Oral 600 ml IV Total 281 ml Packed Cells 354 ml Output Urine Total 1175 ml 1425 ml Vital Signs Date Time Temp Pulse Resp B/P Pulse Ox O2 Delivery O2 Flow Rate FiO2 02/19/17 08:00 97.3 79 20 163/101 99 02/19/17 06:02 20 02/19/17 04:00 97.5 83 20 157/99 100 02/19/17 03:50 97.5 83 20 157/99 100 02/19/17 01:10 97.8 87 20 162/97 99 02/19/17 00:54 97.6 91 20 156/93 99 02/19/17 00:00 95.8 87 18 143/91 100 02/18/17 20:00 96.2 96 18 128/87 99 02/18/17 16:00 97 Nasal Cannula 02/18/17 15:32 97.0 85 20 139/78 100 Automatic Cuff Manual Cuff/Auscultation 02/18/17 12:00 93 02/18/17 12:00 98.1 93 15 138/83 99 02/18/17 11:00 98 02/18/17 10:26 102 20 122/74 99 02/18/17 10:26 102 02/18/17 10:00 108 24 122/74 97 02/18/17 10:00 108 (Radha Fernandez) -: 02/19/17 0630 02/19/17 0630 Drip Comment heparin gtt (Radha Fernandez) Physical Exam General Appearance: Well Developed, Well Nourished, No Acute Distress, Comfortable ( Radha Fernandez) Eyes Eye Exam: Pupils Equal (Radha Fernandez) Throat Throat Exam: Oral Mucosa [place] & Moist (Radha Fernandez) Neck Neck Exam: Neck Supple, Trachea Midline (Radha Fernandez) Pulmonary Resp Exam: Breath Sounds Equal, No Distress, Rhonchi, Decreased Bases (Radha Fernandez) Cardiology CV Exam: Regular, Normal Sinus Rhythm, Good Perfusion (Radha Fernandez) Gastrointestinal/Abdomen GI Exam: Soft, Non-Tender, Bowel Sounds Present (Radha Fernandez) Genitourinary Exam: Clear Urine (Radha Fernandez) Musculoskeletal MS Exam: Joints Intact, Normal Tone, Unable to Ambulate (Radha Fernandez) Integumentary Skin Exam: Clear, Warm, Dry, Intact (Radha Fernandez) Extremeties Extremities Exam: No Edema, Pedal Pulses Palpable (Radha Fernandez) Neurologic Neuro Exam: Alert, Awake, Oriented, Speech Clear, Moving All Extremities ( Radha Fernandez) Psychiatric Psych Exam: Appropriate Responses (Radha Fernandez) Assessment/Plan Discussed Condition With: Patient Assessment Summary: TIBUCRIO/Acute Renal Failure Problem List: (1) TIBURCIO (acute kidney injury) Plan: In a patient who had normal creatinine in early January (1.05), 1.3 at discharge January 2017 TIBURCIO likely due to hypoperfusion from sepsis, later suffered cardiac arrest. May have progressed to ATN renal function is better potassium has normalized good urine output, samaniego has been removed avoid nephrotoxic agents during hospitalization (2) Hyponatremia Plan: corrected, stop IVF (3) Acute hyperkalemia Plan: corrected, monitor (4) Altered mental status Plan: improving, likely due to adrenal insufficiency, sepsis, hyponatremia continue to monitor, he is awake/alert now (5) s/p adrenal hemrhage Plan: with suspected adrenal insufficiency after stopping prednisone continue Decadron BID (6) Elevated liver function tests Plan: improving, from suspected shock liver, monitor (7) DVT (deep venous thrombosis) Plan: s/p IVC filter on heparin gtt conversion to coumadin planned (8) Sepsis Plan: repeat cultures are negative he is on oral Levaquin for suspected pneumonia (9) Anemia Plan: ordered 1 unit for transfusion today hematology is following Plan we will sign off at this time, call us if needed (Radha Fernandez) Plan patient was seen and examined. Agree with above assessment and plan. (Wilman Palma MD) Problem Qualifiers (1) DVT (deep venous thrombosis): Radha Fernandez Feb 19, 2017 09:51 Wilman Palma MD Feb 19, 2017 15:06
[2017-02-19] MEDS ORDERED: RESP: ALBUTEROL 2.5 MG/3 ML NEB (PRN) NEB (12:00)
[2017-02-19] MEDS ORDERED: RESP: ALBUTEROL 2.5 MG/3 ML NEB (SCH) NEB ONE (12:00)
[2017-02-19] MEDS ORDERED: MAGNESIUM HYDROXIDE SUSP 30 ML CUP PO PRN (12:00)
--- NOTE | 2017-02-19 12:03 | HHI.PR ---
Subjective Remarks Bile. Patient is short of breath with exertion. Complaints of constipation today. She did have a bowel movement but reports his stools are hard and he still feels constipated. She did have wheezing after exertion. Objective Vital Signs Date Time Temp Pulse Resp B/P Pulse Ox O2 Delivery O2 Flow Rate FiO2 02/19/17 08:00 97.3 79 20 163/101 99 02/19/17 06:02 20 02/19/17 04:00 97.5 83 20 157/99 100 02/19/17 03:50 97.5 83 20 157/99 100 02/19/17 01:10 97.8 87 20 162/97 99 02/19/17 00:54 97.6 91 20 156/93 99 02/19/17 00:00 95.8 87 18 143/91 100 02/18/17 20:00 96.2 96 18 128/87 99 02/18/17 16:00 97 Nasal Cannula 02/18/17 15:32 97.0 85 20 139/78 100 Automatic Cuff Manual Cuff/Auscultation I/O 02/18/17 02/18/17 02/18/17 02/19/17 02/19/17 02/19/17 07:00 15:00 23:00 07:00 15:00 23:00 Intake Total 1130 ml 600 ml 233 ml 402 ml Output Total 1250 ml 800 ml 1250 ml 550 ml Balance -120 ml -200 ml -1017 ml -148 ml Intake Oral 355 ml 600 ml IV Total 775 ml 233 ml 48 ml Packed Cells 354 ml Output Urine Total 1250 ml 800 ml 1250 ml 550 ml # Bowel Movements 0 Result Diagram: 02/19/17 0630 02/19/17 0630 Objective Remarks GENERAL: NAD, A&Ox3 HEAD: Normocephalic. NECK: Supple, trachea midline. No lymphadenopathy. EYES: No scleral icterus. No injection or drainage. CARDIOVASCULAR: Regular rate and rhythm without murmurs, gallops, or rubs. RESPIRATORY: Breath sounds equal bilaterally. No accessory muscle use. GASTROINTESTINAL: Abdomen soft, non-tender, nondistended. MUSCULOSKELETAL: No cyanosis, or edema. SKIN: Warm and dry. NEURO: No focal neurological deficitis. A/P Problem List: (1) s/p adrenal hemrhage (2) TIBURCIO (acute kidney injury) ICD Code: N17.9 (3) Elevated liver function tests ICD Code: R79.89 (4) DVT (deep venous thrombosis) ICD Code: I82.409 (5) Altered mental status ICD Code: R41.82 (6) Sepsis ICD Code: A41.9 (7) Hyponatremia ICD Code: E87.1 (8) Anemia ICD Code: D64.9 (9) Acute hyperkalemia ICD Code: E87.5 Assessment and Plan Assessment and Plan 76-year-old male admitted with severe sepsis, encephalopathy, and renal failure with severe hyponatremia. Ambulatory status improving. Wheezing after exertion. Albuterol nebulized treatment started for wheezing. She denies any history of COPD or asthma. Constipation is addressed with start of Colace twice a day and when necessary milk of magnesia. Constipation When necessary milk of magnesia Twice a day Colace next Hyponatremia Resolved Follow sodium level Hyperkalemia Resolved Follow potassium levels Encephalopathy Returned to baseline Monitor for any recurrence Spontaneous Cardiac arrest status post CPR Tachycardia May have been metabolic in origin Follow on telemetry Continue Lopressor Metabolic acidosis Resolved Hypotension Resolved Anemia 2 units packed red blood cells transfused 02/14/17 Stabilized follow CBC Transfuse if needed History of bilateral adrenal hemorrhages Adrenal insufficiency hydrocortisone 50mg IV Q12 Acute kidney injury Improving through time Continue IV hydration Follow renal function Acute respiratory failure on mechanical ventilation Resolved Lupus anticoagulant positive Follow secondary studies History of DVT status post IVC filter Hypercoagulability state with lupus Heparin drip Follow hemoglobin Follow thrombocytes Sepsis Lactic acidosis GPC bacteremia Vancomycin Levaquin Infectious disease physician is also following Follow blood cultures History of COPD Respiratory failure Acute respiratory failure resolved Continue with oxygen keep sat >92% Bronchodilators, IS As needed albuterol 3 times a day DuoNeb, scheduled Elevated LFTs Follow liver function studies Etiology may be secondary to sepsis or hypoperfusion from hypotension Improving through time DVT Prophylaxis Heparin drip, SCDs Problem Qualifiers (1) DVT (deep venous thrombosis): Flash Del Valle MD Feb 19, 2017 12:03
[2017-02-19] MEDS: ASCORBIC ACID 500 MG TAB PO SCH (12:14)
[2017-02-19] MEDS: SODIUM CHLORIDE 0.9% FLUSH 10 ML FLUSH IV FLUSH SCH ×2 (12:16→21:23)
[2017-02-19] MEDS: PANTOPRAZOLE SODIUM 40 MG VIAL IV SCH (12:16)
--- NOTE | 2017-02-19 13:38 | PD.ONC.PN ---
Subjective Subjective Remarks Afebrile overnight. Patient has wet cough, wheezing. No bleeding. Tolerating heparin drip. Objective Data Date Time Temp Pulse Resp B/P Pulse Ox O2 Delivery O2 Flow Rate FiO2 02/19/17 12:00 96.6 82 21 157/89 99 02/19/17 08:20 98 Nasal Cannula 2.00 02/19/17 08:00 97.3 79 20 163/101 99 02/19/17 06:02 20 02/19/17 04:00 97.5 83 20 157/99 100 02/19/17 03:50 97.5 83 20 157/99 100 02/19/17 01:10 97.8 87 20 162/97 99 02/19/17 00:54 97.6 91 20 156/93 99 02/19/17 00:00 95.8 87 18 143/91 100 02/18/17 20:00 96.2 96 18 128/87 99 02/18/17 16:00 97 Nasal Cannula 02/18/17 15:32 97.0 85 20 139/78 100 Automatic Cuff Manual Cuff/Auscultation 02/19/17 02/19/17 02/19/17 07:00 15:00 23:00 Intake Total 402 ml Output Total 550 ml Balance -148 ml Result Diagram: 02/19/1730 02/19/1730 Laboratory Results Laboratory Tests Test 02/18/17 02/19/17 23:11 06:30 Iron Level 79 MCG/DL Total Iron Binding Capacity 182 MCG/DL Percent Iron Saturation 43.4 % Ferritin 2430 NG/ML Vitamin B12 Level GREATER THAN 2000 PG/ML Blood Type O NEGATIVE Antibody Screen NEGATIVE Crossmatch Leukocyte-Reduced Red Blood Cells Blood Bank Comment White Blood Count 14.8 TH/MM3 Red Blood Count 3.35 MIL/MM3 Hemoglobin 10.0 GM/DL Hematocrit 29.7 % Mean Corpuscular Volume 88.6 FL Mean Corpuscular Hemoglobin 29.8 PG Mean Corpuscular Hemoglobin 33.7 % Concent Red Cell Distribution Width 15.7 % Platelet Count 343 TH/MM3 Mean Platelet Volume 8.2 FL Activated Partial 27.0 SEC Thromboplast Time Sodium Level 136 MEQ/L Potassium Level 3.7 MEQ/L Chloride Level 100 MEQ/L Carbon Dioxide Level 24.8 MEQ/L Anion Gap 11 MEQ/L Blood Urea Nitrogen 25 MG/DL Creatinine 1.34 MG/DL Estimat Glomerular Filtration 52 ML/MIN Rate Random Glucose 81 MG/DL Calcium Level 8.4 MG/DL Random Cortisol 53.7 MCG/DL Imaging Studies Last 24 hours Impressions Chest X-Ray 02/19/17 0000 Signed Impressions: Service Date/Time: Sunday, February 19, 2017 08:56 - CONCLUSION: Interstitial prominence and mild air space disease. Small bilateral effusions. Matthew Aguirre MD Administered Medications Medications (Trade) Dose Ordered Sig/Jose Route PRN Reason Start Time Stop Time Status Last Admin Dose Admin Sodium Chloride (NS Flush) 2 ml BID IV FLUSH 02/14/17 21:00 02/19/17 12:16 Chlorhexidine Gluconate (Peridex 0.12% Liq) 15 ml BID@08,20 MT 02/14/17 20:00 02/19/17 08:00 Pantoprazole Sodium (Protonix Inj) 40 mg DAILY IV 02/14/17 16:00 02/19/17 12:16 Chlorhexidine Gluconate 3 pack 3 pack Taper DAILY@04 TOP 02/15/17 04:00 02/11/18 03:59 02/19/17 03:29 Norepinephrine Bitartrate (Levophed-Dextrose Drip) 250 ml @ 0 mls/hr TITRATE IV 02/15/17 02:45 02/15/17 02:49 Insulin Human Regular 1 1 Q6H SQ 02/16/17 07:15 02/18/17 13:10 Heparin Sodium/ Dextrose (Heparin-D5W Inj) 250 ml @ 0 mls/hr TITRATE IV 02/16/17 16:15 02/18/17 22:22 Hydrocortisone Sodium Succinate (SoluCORTEF INJ) 50 mg Q12H IV PUSH 02/17/17 18:00 02/19/17 05:00 Metoprolol Tartrate (Lopressor) 25 mg Q12HR PO 02/17/17 09:00 02/19/17 12:17 Guaifenesin (Robitussin Liq) 200 mg Q4H PRN PO Cough 02/18/17 08:30 02/19/17 03:25 Ascorbic Acid (Vitamin C) 500 mg DAILY PO 02/19/17 09:00 02/19/17 12:14 Oxycodone HCl (Roxicodone) 5 mg Q4H PRN PO PAIN SCALE 4 TO 10 02/18/17 18:15 02/19/17 05:00 Objective Remarks GENERAL: Elderly male, sitting upright in bed. SKIN: Warm and dry. HEAD: Normocephalic. EYES: No injection or drainage. NECK: Supple, trachea midline. CARDIOVASCULAR: +S1/S2 RESPIRATORY: scattered rhonchi. diminished at bases. On 2L O2 via NC GASTROINTESTINAL: Abdomen soft, non-tender, nondistended. EXTREMITIES: No cyanosis. bandage along rle is c/d/i. NEUROLOGICAL: awake and alert, normal speech. able to move extremities. Assessment/Plan Problem List: (1) DVT (deep venous thrombosis) Status: Acute Plan: --chronic right lower extremity DVT --h/o bilateral adrenal hemorrhages --s/p IVC filter placement. --still at risk for further expansion of the DVT in lower extremity --h/o atrial fibrillation --currently on heparin gtt --can be transitioned to Coumadin if/when hgb remains stable. (2) Normocytic anemia Status: Acute Plan: --stool occult blood pending--no BM --LDH elevated, haptoglobin also elevated, bilirubin normal --marleny negative Assessment 76y/o male admitted with severe sepsis, AMS. Hematology consulted to make recommendations on anticoagulation in patient history of DVT with lupus anticoagulant and history of adrenal hemorrhages history of DVT and lupus anticoagulant with history of adrenal hemorrhages --While in the emergency room, he became bradycardic and he subsequently asystole. --underwent CPR ACLS protocol for about 15 minutes and he had return of spontaneous circulation. --s/p IVC filter placement Plan 1. breathing treatment as ordered 2. monitor CBC 3. continue heparin gtt. 4. start coumadin bridge tomorrow if hgb remains stable. Attending Statement The exam, history, and the medical decision-making described in the above note were completed with the assistance of the mid-level provider. I reviewed and agree with the findings presented. I attest that I had a [id number] encounter with the patient on the same day, and personally performed and documented my assessment and findings in the medical record Problem Qualifiers (1) DVT (deep venous thrombosis): Jeaneth Ávlarez Feb 19, 2017 13:38 Anatoliy Arauz MD Feb 20, 2017 00:05
[2017-02-19] MEDS: RESP: ALBUTEROL 2.5 MG/IPRATROPIUM 0.5 MG NEB (SCH) NEB ×2 (13:46→20:55)
--- NOTE | 2017-02-19 13:53 | HHI.IDPN ---
Subjective Subjective Remarks Notes reviewed Temps ok C/O cough and some SOB No new (+) BC Has fred DVT - on heparin drip No bleeding Denies swallowing problem No N/V Antibiotics Levaquin Lines PIV Past Medical History HTN Hx DVT in right lower extremity Depression Anxiety Chronic Right Lower Extremity Wound in the Medial Aspect of His Right Ankle bilateral adrenal hemorrhages IVC filter placement recently. Past Surgical History IVC filter placement Right lower extremity vein stripping Vasectomy Hernia repair Allergies: Coded Allergies: No Known Allergies (Unverified , 02/14/17) Objective . Vital Signs Date Time Temp Pulse Resp B/P Pulse Ox O2 Delivery O2 Flow Rate FiO2 02/19/17 12:00 96.6 82 21 157/89 99 02/19/17 08:20 98 Nasal Cannula 2.00 02/19/17 08:00 97.3 79 20 163/101 99 02/19/17 06:02 20 02/19/17 04:00 97.5 83 20 157/99 100 02/19/17 03:50 97.5 83 20 157/99 100 02/19/17 01:10 97.8 87 20 162/97 99 02/19/17 00:54 97.6 91 20 156/93 99 02/19/17 00:00 95.8 87 18 143/91 100 02/18/17 20:00 96.2 96 18 128/87 99 02/18/17 16:00 97 Nasal Cannula 02/18/17 15:32 97.0 85 20 139/78 100 Automatic Cuff Manual Cuff/Auscultation 02/18/17 02/18/17 02/19/17 14:59 22:59 06:59 Intake Total 600 ml 233 ml 402 ml Output Total 800 ml 1250 ml 550 ml Balance -200 ml -1017 ml -148 ml Intake Oral 600 ml IV Total 233 ml 48 ml Packed Cells 354 ml Output Urine Total 800 ml 1250 ml 550 ml . Laboratory Tests Test 02/18/17 02/19/17 04:54 06:30 White Blood Count 14.8 TH/MM3 14.8 TH/MM3 Red Blood Count 2.44 MIL/MM3 3.35 MIL/MM3 Hemoglobin 7.4 GM/DL 10.0 GM/DL Hematocrit 21.2 % 29.7 % Mean Corpuscular Volume 86.9 FL 88.6 FL Mean Corpuscular Hemoglobin 30.4 PG 29.8 PG Mean Corpuscular Hemoglobin 35.0 % 33.7 % Concent Red Cell Distribution Width 16.7 % 15.7 % Platelet Count 347 TH/MM3 343 TH/MM3 Mean Platelet Volume 8.1 FL 8.2 FL Neutrophils (%) (Auto) 90.2 % Lymphocytes (%) (Auto) 5.2 % Monocytes (%) (Auto) 4.4 % Eosinophils (%) (Auto) 0.1 % Basophils (%) (Auto) 0.1 % Neutrophils # (Auto) 13.3 TH/MM3 Lymphocytes # (Auto) 0.8 TH/MM3 Monocytes # (Auto) 0.6 TH/MM3 Eosinophils # (Auto) 0.0 TH/MM3 Basophils # (Auto) 0.0 TH/MM3 CBC Comment DIFF FINAL Differential Comment Laboratory Tests Test 02/18/17 02/18/17 02/19/17 04:54 23:11 06:30 Sodium Level 137 MEQ/L 136 MEQ/L Potassium Level 3.3 MEQ/L 3.7 MEQ/L Chloride Level 99 MEQ/L 100 MEQ/L Carbon Dioxide Level 25.9 MEQ/L 24.8 MEQ/L Anion Gap 12 MEQ/L 11 MEQ/L Blood Urea Nitrogen 29 MG/DL 25 MG/DL Creatinine 1.59 MG/DL 1.34 MG/DL Estimat Glomerular Filtration 43 ML/MIN 52 ML/MIN Rate Random Glucose 118 MG/DL 81 MG/DL Calcium Level 8.1 MG/DL 8.4 MG/DL Total Bilirubin 0.4 MG/DL Aspartate Amino Transf 198 U/L (AST/SGOT) Alanine Aminotransferase 683 U/L (ALT/SGPT) Alkaline Phosphatase 188 U/L Total Protein 5.5 GM/DL Albumin 2.3 GM/DL Iron Level 79 MCG/DL Total Iron Binding Capacity 182 MCG/DL Percent Iron Saturation 43.4 % Ferritin 2430 NG/ML Vitamin B12 Level GREATER THAN 2000 PG/ML Random Cortisol 53.7 MCG/DL Imaging Last Impressions Lower Extremity Ultrasound 02/16/17 Signed Impressions: Service Date/Time: Thursday, February 16, 2017 15:38 - CONCLUSION: Bilateral DVT as above. DVT on the left is no since January 04. Santos Arce MD Liver Ultrasound 02/16/17 Signed Impressions: Service Date/Time: Thursday, February 16, 2017 07:43 - CONCLUSION: There is no intrahepatic biliary duct dilatation. Garrison Clintno MD FACR Chest X-Ray 02/15/17 0600 Signed Impressions: Service Date/Time: Wednesday, February 15, 2017 04:23 - CONCLUSION: No change. Lungs remain reasonably clear. Santos Arce MD Head CT 02/14/17 1152 Signed Impressions: Service Date/Time: February 12:22 - CONCLUSION: 1. No acute intracranial abnormality. Flash Clinton MD Abdomen/Pelvis CT 02/14/17 0000 Signed Impressions: Service Date/Time: , February 14, 2017 14:38 - CONCLUSION: 1. Mild gaseous distention of the cecum. 2. Very minimal right basilar effusion. 3. No focal abscess identified. 4. Minimal left inguinal hernia. Flash Clinton MD Physical Exam GENERAL: awake and alert, ok at rest SKIN: Warm and dry. Has scattered hypopigmented macules scattered in both UE, upper chest and a few in the LE EYES: [place] conjunctiva. No petechia or hemorrhage. No scleral icterus. No injection or drainage. EARS, NOSE AND THROAT: Nose without bleeding or purulent nasal discharge. Mucous membranes pink and moist. No oral lesions noted. NECK: Trachea midline. Supple and not tender, no meningeal signs CARDIOVASCULAR: regular rate and rhythm. No murmurs, rubs or gallops heard RESPIRATORY: Scattered wheezing, decreased at bases ABDOMEN: Soft, non-tender, nondistended. Bowel sounds present and normoactive. No guarding. No rebound. No organomegaly. EXTREMITIES: No clubbing, cyanosis. LLE looks bigger compared to his RLE. No joint effusion, has good ROM. No calf tenderness. Wound R ankle, with no evidence of infection. NEUROLOGICAL: Non-focal. PSYCHIATRIC: Normal affect, calm and cooperative. LINE: PIV with no evidence of infection : Parada cath in place with no evidence of infection Assessment & Plan Remarks IMPRESSION Confusion due to severe hyponatremia, better, but still low 124, came in 115 Hypotension likely due to adrenal crisis, improved, off pressors, on solucortef Fevers, resolved - afebrile today - CXR negative, no PNA symptoms - UA ok - CT A/P ok - One BC with Staph epi likely contaminant, has no lines when he came in Has lupus anticoagulant - had DVT BLE and fred adrenal hemorrhage during last admission - has IVC filter in place - on heparin now; being monitored for bleeding Leukocytosis, better - ?due to BLE DVT Renal insufficiency due to dehydration, hypotension - better S/P arrest due to hypotension from adrenal crisis Cough, ?PNA RECOMMENDATION Continue Levaquin for pulmonary coverage, possible PNA - give 7 days Follow C/S Monitor temps Monitor progress Follow CBC Explained plan to the patient Joselyn Otero MD Feb 19, 2017 13:53
[2017-02-19 17:17] LABS: APTT (PATIENT) 37.9 SEC (24.3-30.1)
[2017-02-19] MEDS: BENZOCAINE-MENTHOL (SUGAR FREE) 15 MG-3.6 MG LOZENGE BUCCAL PRN (18:29)
[2017-02-19] MEDS: DOCUSATE SODIUM 100 MG CAP PO SCH (21:17)
[2017-02-20] VITALS (8 sets, daily range): BP systolic 124–163; BP diastolic 76–92; PULSE 77–90; RESP 20; TEMP 96.7–98.7; O2SAT 97–100
[2017-02-20] MEDS: guaiFENesin SOLUTION 200 MG/10 ML CUP PO PRN (00:32)
[2017-02-20] MEDS: INSULIN NovoLIN REGULAR SUPPLEMENTAL SCALE SQ SCH ×4 (01:15→18:20)
[2017-02-20] MEDS: CHLORHEXIDINE GLUCONATE 2 % 1 PACK (2 CLOTHS) TOP SCH (04:00)
[2017-02-20 04:15] LABS: HEMATOCRIT 29.6 % (39.0-51.0); MEAN CELL VOLUME 88.7 FL (80.0-100.0); MEAN CORPUSCULAR HEMOGLOBIN 29.6 PG (27.0-34.0); MEAN CORPUSCULAR HGB CONC 33.4 % (32.0-36.0); PLATELET COUNT 310 TH/MM3 (150-450); RED BLOOD COUNT 3.34 MIL/MM3 (4.50-5.90); REVIEW FLAG FINAL; WHITE BLOOD COUNT 13.5 TH/MM3 (4.0-11.0)
[2017-02-20 04:32] LABS: APTT (PATIENT) 44.9 SEC (24.3-30.1)
[2017-02-20 04:41] LABS: ANION GAP 10 MEQ/L (5-15); AST (GOT) 83 U/L (15-37); BICARBONATE 25.8 MEQ/L (21.0-32.0); BLOOD UREA NITROGEN 21 MG/DL (7-18); CHLORIDE 97 MEQ/L (98-107); GLOMERULAR FILTRATION RATE 59 ML/MIN (>89); POTASSIUM 3.7 MEQ/L (3.5-5.1); SODIUM (NA) 133 MEQ/L (136-145)
[2017-02-20 04:47] LABS: ALKALINE PHOSPHATASE 184 U/L (45-117); ALT (GPT) 451 U/L (12-78); TOTAL BILIRUBIN ADULT 0.6 MG/DL (0.2-1.0)
[2017-02-20] MEDS: HYDROCORTISONE SOD SUCCINATE 100 MG VIAL IV PUSH SCH ×2 (05:50→18:23)
[2017-02-20] MEDS: BENZOCAINE-MENTHOL (SUGAR FREE) 15 MG-3.6 MG LOZENGE BUCCAL PRN ×3 (06:00→21:06)
[2017-02-20] MEDS: CHLORHEXIDINE 0.12% (ORAL KIT) 15 ML CUP MT SCH ×2 (08:00→20:00)
[2017-02-20] MEDS: RESP: ALBUTEROL 2.5 MG/IPRATROPIUM 0.5 MG NEB (SCH) NEB ×3 (08:25→20:49)
[2017-02-20] MEDS: METOPROLOL TARTRATE 25 MG TAB PO SCH ×2 (08:41→21:06)
[2017-02-20] MEDS: LEVOFLOXACIN 250 MG TAB PO SCH (08:43)
[2017-02-20] MEDS: ASCORBIC ACID 500 MG TAB PO SCH (08:43)
[2017-02-20] MEDS: DOCUSATE SODIUM 100 MG CAP PO SCH ×2 (08:43→21:06)
[2017-02-20] MEDS: SODIUM CHLORIDE 0.9% FLUSH 10 ML FLUSH IV FLUSH SCH ×2 (08:44→21:06)
[2017-02-20] MEDS: PANTOPRAZOLE SODIUM 40 MG VIAL IV SCH (08:44)
[2017-02-20] MEDS: HEPARIN-D5W INJ 250 ML IV SCH (08:52)
--- NOTE | 2017-02-20 09:56 | HHI.PR ---
Subjective Remarks Wheezing has improved with nebulized treatments. Patient's strength is improving. His elevated LFTs have improved. Renal function has normalized. Objective Vital Signs Date Time Temp Pulse Resp B/P Pulse Ox O2 Delivery O2 Flow Rate FiO2 02/20/17 08:27 98 Nasal Cannula 2.00 02/20/17 08:00 97.0 82 20 163/89 98 02/20/17 04:00 97.4 77 20 149/82 98 02/20/17 00:00 96.7 83 20 156/76 98 02/19/17 20:57 97 Nasal Cannula 2.00 02/19/17 20:00 96.7 103 20 154/96 97 02/19/17 17:45 99 Nasal Cannula 2.00 02/19/17 16:00 97.4 88 21 120/71 99 02/19/17 12:00 96.6 82 21 157/89 99 I/O 02/19/17 02/19/17 02/19/17 02/20/17 02/20/17 02/20/17 07:00 15:00 23:00 07:00 15:00 23:00 Intake Total 402 ml 240 ml 360 ml Output Total 550 ml 375 ml 950 ml Balance -148 ml -135 ml -590 ml Intake Oral 240 ml 360 ml IV Total 48 ml Packed Cells 354 ml Output Urine Total 550 ml 375 ml 950 ml # Bowel Movements 1 Result Diagram: 02/20/1731802/20/17318 Objective Remarks GENERAL: NAD, A&Ox3 HEAD: Normocephalic. NECK: Supple, trachea midline. No lymphadenopathy. EYES: No scleral icterus. No injection or drainage. CARDIOVASCULAR: Regular rate and rhythm without murmurs, gallops, or rubs. RESPIRATORY: Breath sounds equal bilaterally. No accessory muscle use. GASTROINTESTINAL: Abdomen soft, non-tender, nondistended. MUSCULOSKELETAL: No cyanosis, or edema. SKIN: Warm and dry. NEURO: No focal neurological deficitis. A/P Problem List: (1) s/p adrenal hemrhage (2) TIBURCIO (acute kidney injury) ICD Code: N17.9 (3) Elevated liver function tests ICD Code: R79.89 (4) DVT (deep venous thrombosis) ICD Code: I82.409 (5) Altered mental status ICD Code: R41.82 (6) Sepsis ICD Code: A41.9 (7) Hyponatremia ICD Code: E87.1 (8) Anemia ICD Code: D64.9 (9) Acute hyperkalemia ICD Code: E87.5 Assessment and Plan Assessment and Plan 76-year-old male admitted with severe sepsis, encephalopathy, and renal failure with severe hyponatremia. Ambulatory status improving. Wheezing improved with nebulized treatments. Continue to follow elevated LFTs. Constipation When necessary milk of magnesia Twice a day Colace next Hyponatremia Resolved Follow sodium level Hyperkalemia Resolved Follow potassium levels Encephalopathy Returned to baseline Monitor for any recurrence Spontaneous Cardiac arrest status post CPR Tachycardia May have been metabolic in origin Follow on telemetry Continue Lopressor Metabolic acidosis Resolved Hypotension Resolved Anemia 2 units packed red blood cells transfused 02/14/17 Stabilized follow CBC Transfuse if needed History of bilateral adrenal hemorrhages Adrenal insufficiency hydrocortisone 50mg IV Q12 Acute kidney injury Improving through time Continue IV hydration Follow renal function Acute respiratory failure on mechanical ventilation Resolved Lupus anticoagulant positive Follow secondary studies History of DVT status post IVC filter Hypercoagulability state with lupus Heparin drip Follow hemoglobin Follow thrombocytes Sepsis Lactic acidosis GPC bacteremia Vancomycin Levaquin Infectious disease physician is also following Follow blood cultures History of COPD Respiratory failure Acute respiratory failure resolved Continue with oxygen keep sat >92% Bronchodilators, IS As needed albuterol 3 times a day DuoNeb, scheduled Elevated LFTs Follow liver function studies Etiology may be secondary to sepsis or hypoperfusion from hypotension Improving through time DVT Prophylaxis Heparin drip, SCDs Problem Qualifiers (1) DVT (deep venous thrombosis): Flash Del Valle MD Feb 20, 2017 09:56
--- NOTE | 2017-02-20 10:25 | HHI.IDPN ---
Subjective Subjective Remarks Notes reviewed Temps ok States breathing is better NO new complaint No new (+) BC Has fred DVT - on heparin drip No bleeding Denies swallowing problem No N/V Antibiotics Levaquin Lines PIV Past Medical History HTN Hx DVT in right lower extremity Depression Anxiety Chronic Right Lower Extremity Wound in the Medial Aspect of His Right Ankle bilateral adrenal hemorrhages IVC filter placement recently. Past Surgical History IVC filter placement Right lower extremity vein stripping Vasectomy Hernia repair Allergies: Coded Allergies: No Known Allergies (Unverified , 02/14/17) Objective . Vital Signs Date Time Temp Pulse Resp B/P Pulse Ox O2 Delivery O2 Flow Rate FiO2 02/20/17 08:27 98 Nasal Cannula 2.00 02/20/17 08:00 97.0 82 20 163/89 98 02/20/17 04:00 97.4 77 20 149/82 98 02/20/17 00:00 96.7 83 20 156/76 98 02/19/17 20:57 97 Nasal Cannula 2.00 02/19/17 20:00 96.7 103 20 154/96 97 02/19/17 17:45 99 Nasal Cannula 2.00 02/19/17 16:00 97.4 88 21 120/71 99 02/19/17 12:00 96.6 82 21 157/89 99 02/19/17 02/19/17 02/20/17 15:00 23:00 07:00 Intake Total 240 ml 360 ml Output Total 375 ml 950 ml Balance -135 ml -590 ml Intake Oral 240 ml 360 ml Output Urine Total 375 ml 950 ml # Bowel Movements 1 . Laboratory Tests Test 02/19/17 02/20/17 06:30 03:19 White Blood Count 14.8 TH/MM3 13.5 TH/MM3 Red Blood Count 3.35 MIL/MM3 3.34 MIL/MM3 Hemoglobin 10.0 GM/DL 9.9 GM/DL Hematocrit 29.7 % 29.6 % Mean Corpuscular Volume 88.6 FL 88.7 FL Mean Corpuscular Hemoglobin 29.8 PG 29.6 PG Mean Corpuscular Hemoglobin 33.7 % 33.4 % Concent Red Cell Distribution Width 15.7 % 16.0 % Platelet Count 343 TH/MM3 310 TH/MM3 Mean Platelet Volume 8.2 FL 8.0 FL Laboratory Tests Test 02/18/17 02/19/17 02/20/17 23:11 06:30 03:19 Iron Level 79 MCG/DL Total Iron Binding Capacity 182 MCG/DL Percent Iron Saturation 43.4 % Ferritin 2430 NG/ML Vitamin B12 Level GREATER THAN 2000 PG/ML Sodium Level 136 MEQ/L 133 MEQ/L Potassium Level 3.7 MEQ/L 3.7 MEQ/L Chloride Level 100 MEQ/L 97 MEQ/L Carbon Dioxide Level 24.8 MEQ/L 25.8 MEQ/L Anion Gap 11 MEQ/L 10 MEQ/L Blood Urea Nitrogen 25 MG/DL 21 MG/DL Creatinine 1.34 MG/DL 1.20 MG/DL Estimat Glomerular Filtration 52 ML/MIN 59 ML/MIN Rate Random Glucose 81 MG/DL 128 MG/DL Calcium Level 8.4 MG/DL 7.7 MG/DL Random Cortisol 53.7 MCG/DL Total Bilirubin 0.6 MG/DL Aspartate Amino Transf 83 U/L (AST/SGOT) Alanine Aminotransferase 451 U/L (ALT/SGPT) Alkaline Phosphatase 184 U/L Total Protein 5.6 GM/DL Albumin 2.3 GM/DL Imaging Last Impressions Lower Extremity Ultrasound 02/16/17 0000 Signed Impressions: Service Date/Time: Thursday, February 16, 2017 15:38 - CONCLUSION: Bilateral DVT as above. DVT on the left is no since January 04. Santos Arce MD Liver Ultrasound 02/16/17 0000 Signed Impressions: Service Date/Time: Thursday, February 16, 2017 07:43 - CONCLUSION: There is no intrahepatic biliary duct dilatation. Garrison Clinton MD FACR Chest X-Ray 02/15/17 0600 Signed Impressions: Service Date/Time: Wednesday, February 15, 2017 04:23 - CONCLUSION: No change. Lungs remain reasonably clear. Santos Arce MD Head CT 02/14/17 1152 Signed Impressions: Service Date/Time: February 12:22 - CONCLUSION: 1. No acute intracranial abnormality. Flash Clinton MD Abdomen/Pelvis CT 02/14/17 0000 Signed Impressions: Service Date/Time: February 14:38 - CONCLUSION: 1. Mild gaseous distention of the cecum. 2. Very minimal right basilar effusion. 3. No focal abscess identified. 4. Minimal left inguinal hernia. Flash Clinton MD Physical Exam GENERAL: awake and alert, NAD SKIN: Warm and dry. Has scattered hypopigmented macules scattered in both UE, upper chest and a few in the LE EYES: [place] conjunctiva. No petechia or hemorrhage. No scleral icterus. No injection or drainage. EARS, NOSE AND THROAT: Nose without bleeding or purulent nasal discharge. Mucous membranes pink and moist. No oral lesions noted. NECK: Trachea midline. Supple and not tender, no meningeal signs CARDIOVASCULAR: regular rate and rhythm. No murmurs, rubs or gallops heard RESPIRATORY: Occ wheezing in L ABDOMEN: Soft, non-tender, nondistended. Bowel sounds present and normoactive. No guarding. No rebound. No organomegaly. EXTREMITIES: No clubbing, cyanosis. LLE looks bigger compared to his RLE. No joint effusion, has good ROM. No calf tenderness. Wound R ankle, with no evidence of infection. NEUROLOGICAL: Non-focal. PSYCHIATRIC: Normal affect, calm and cooperative. LINE: PIV with no evidence of infection Assessment & Plan Remarks IMPRESSION Confusion due to severe hyponatremia, better, but still low 124, came in 115 Hypotension likely due to adrenal crisis, improved, off pressors, on solucortef Fevers, resolved - afebrile today - CXR negative, no PNA symptoms - UA ok - CT A/P ok - One BC with Staph epi likely contaminant, has no lines when he came in Has lupus anticoagulant - had DVT BLE and fred adrenal hemorrhage during last admission - has IVC filter in place - on heparin now; being monitored for bleeding Leukocytosis, better - ?due to BLE DVT Renal insufficiency due to dehydration, hypotension - better S/P arrest due to hypotension from adrenal crisis Cough, ?PNA RECOMMENDATION Continue Levaquin for pulmonary coverage, possible PNA - give 7 days - end date ordered in [employer] Explained plan to the patient Clinically doing well from ID standpoint He can be D/C anytime from ID standpoint I will sign off Please call if with any new ID issue or question Joselyn Otero MD Feb 20, 2017 10:25
[2017-02-20] MEDS ORDERED: WARFARIN SOD 5 MG TAB PO SCH (16:00)
[2017-02-20 19:01] LABS: APTT (PATIENT) 52.5 SEC (24.3-30.1)
[2017-02-21] VITALS (7 sets, daily range): BP systolic 134–174; BP diastolic 68–92; PULSE 83–105; RESP 18–20; TEMP 96.7–98.6; O2SAT 97–99
[2017-02-21] MEDS: HEPARIN-D5W INJ 250 ML IV SCH ×2 (00:14→16:19)
[2017-02-21] MEDS: INSULIN NovoLIN REGULAR SUPPLEMENTAL SCALE SQ SCH ×4 (00:21→17:58)
[2017-02-21] MEDS: CHLORHEXIDINE GLUCONATE 2 % 1 PACK (2 CLOTHS) TOP SCH (03:26)
[2017-02-21] MEDS: HYDROCORTISONE SOD SUCCINATE 100 MG VIAL IV PUSH SCH ×2 (05:42→16:21)
[2017-02-21] MEDS: BENZOCAINE-MENTHOL (SUGAR FREE) 15 MG-3.6 MG LOZENGE BUCCAL PRN ×2 (05:43→14:00)
[2017-02-21] MEDS: CHLORHEXIDINE 0.12% (ORAL KIT) 15 ML CUP MT SCH ×2 (07:14→19:36)
--- NOTE | 2017-02-21 07:38 | HHI.PR ---
Subjective Remarks Respiratory status is improving. Patient is becoming more ambulatory with assistance. He reports to me today that she prefers not to take Coumadin as she has taken this in the past with problems, but he cannot specify the problems. He said his primary care doctor has advised that he not be on Coumadin future back then. In the past he has used Xarelto. If his renal function continues to improve and be stable he may have this treatment as an option. Objective Vital Signs Date Time Temp Pulse Resp B/P Pulse Ox O2 Delivery O2 Flow Rate FiO2 02/21/17 06:58 18 02/21/17 00:00 96.7 91 20 139/92 97 02/20/17 20:51 99 Nasal Cannula 2.00 02/20/17 20:00 98.7 90 20 139/92 97 02/20/17 16:00 97.7 86 20 133/79 100 02/20/17 12:00 97.1 79 20 124/81 99 02/20/17 08:27 98 Nasal Cannula 2.00 02/20/17 08:00 97.0 82 20 163/89 98 I/O 02/20/17 02/20/17 02/20/17 02/21/17 02/21/17 02/21/17 07:00 15:00 23:00 07:00 15:00 23:00 Intake Total 360 ml 240 ml 316 ml Output Total 950 ml 1325 ml 225 ml Balance -590 ml -1085 ml 91 ml Intake Oral 360 ml 240 ml IV Total 196 ml Other 120 ml Output Urine Total 950 ml 1325 ml 225 ml # Bowel Movements 0 Result Diagram: 02/20/17 0319 02/20/179 Objective Remarks GENERAL: NAD, A&Ox3 HEAD: Normocephalic. NECK: Supple, trachea midline. No lymphadenopathy. EYES: No scleral icterus. No injection or drainage. CARDIOVASCULAR: Regular rate and rhythm without murmurs, gallops, or rubs. RESPIRATORY: Breath sounds equal bilaterally. No accessory muscle use. GASTROINTESTINAL: Abdomen soft, non-tender, nondistended. MUSCULOSKELETAL: No cyanosis, or edema. SKIN: Warm and dry. NEURO: No focal neurological deficitis. Medications and IVs Administered Medications Medications (Trade) Dose Ordered Sig/Jose Route PRN Reason Start Time Stop Time Status Last Admin Dose Admin Sodium Chloride (NS Flush) 2 ml BID IV FLUSH 02/14/17 21:00 02/20/17 21:06 Chlorhexidine Gluconate (Peridex 0.12% Liq) 15 ml BID@08,20 MT 02/14/17 20:00 02/20/17 08:00 Pantoprazole Sodium (Protonix Inj) 40 mg DAILY IV 02/14/17 16:00 02/20/17 08:44 Chlorhexidine Gluconate Taper DAILY@04 TOP 02/15/17 04:00 02/11/18 03:59 02/19/17 03:29 Norepinephrine Bitartrate (Levophed-Dextrose Drip) 250 ml @ 0 mls/hr TITRATE IV 02/15/17 02:45 02/15/17 02:49 Insulin Human Regular 1 1 Q6H SQ 02/16/17 07:15 02/18/17 13:10 Heparin Sodium/ Dextrose (Heparin-D5W Inj) 250 ml @ 0 mls/hr TITRATE IV 02/16/17 16:15 02/21/17 00:14 Hydrocortisone Sodium Succinate (SoluCORTEF INJ) 50 mg Q12H IV PUSH 02/17/17 18:00 02/21/17 05:42 Metoprolol Tartrate (Lopressor) 25 mg Q12HR PO 02/17/17 09:00 02/20/17 21:06 Guaifenesin (Robitussin Liq) 200 mg Q4H PRN PO Cough 02/18/17 08:30 02/20/17 00:32 Benzocaine/Menthol (Cepacol Extra Billie (Sugar Free)) 1 lozenge Q2HR PRN BUCCAL tickle in throat 02/18/17 10:00 02/21/17 05:43 Levofloxacin (Levaquin) 250 mg DAILY PO 02/18/17 11:00 02/24/17 23:00 02/20/17 08:43 Ascorbic Acid (Vitamin C) 500 mg DAILY PO 02/19/17 09:00 02/20/17 08:43 Oxycodone HCl (Roxicodone) 5 mg Q4H PRN PO PAIN SCALE 4 TO 10 02/18/17 18:15 02/21/17 05:43 Docusate Sodium (Colace) 100 mg BID PO 02/19/17 21:00 02/20/17 21:06 Warfarin Sodium (Coumadin) 5 mg DAILY@1600 PO 02/20/17 16:00 02/20/17 16:49 A/P Problem List: (1) s/p adrenal hemrhage (2) TIBURCIO (acute kidney injury) ICD Code: N17.9 (3) Elevated liver function tests ICD Code: R79.89 (4) DVT (deep venous thrombosis) ICD Code: I82.409 (5) Altered mental status ICD Code: R41.82 (6) Sepsis ICD Code: A41.9 (7) Hyponatremia ICD Code: E87.1 (8) Anemia ICD Code: D64.9 (9) Acute hyperkalemia ICD Code: E87.5 Assessment and Plan Assessment and Plan 76-year-old male admitted with severe sepsis, encephalopathy, and renal failure with severe hyponatremia. Ambulatory status continues to improve. No further wheezing. Dyspnea is improved. Monitor renal function and consider change from Coumadin to Xarelto, as patient has had problems with Coumadin in the past. Constipation When necessary milk of magnesia Twice a day Colace next Hyponatremia Resolved Follow sodium level Hyperkalemia Resolved Follow potassium levels Encephalopathy Returned to baseline Monitor for any recurrence Spontaneous Cardiac arrest status post CPR Tachycardia May have been metabolic in origin Follow on telemetry Continue Lopressor Metabolic acidosis Resolved Hypotension Resolved Anemia 2 units packed red blood cells transfused 02/14/17 Stabilized follow CBC Transfuse if needed History of bilateral adrenal hemorrhages Adrenal insufficiency hydrocortisone 50mg IV Q12 Acute kidney injury Improving through time Continue IV hydration Follow renal function Acute respiratory failure on mechanical ventilation Resolved Lupus anticoagulant positive Follow secondary studies History of DVT status post IVC filter Hypercoagulability state with lupus Heparin drip Follow hemoglobin Follow thrombocytes Sepsis Lactic acidosis GPC bacteremia Vancomycin Levaquin Infectious disease physician is also following Follow blood cultures History of COPD Respiratory failure Acute respiratory failure resolved Continue with oxygen keep sat >92% Bronchodilators, IS As needed albuterol 3 times a day DuoNeb, scheduled Elevated LFTs Follow liver function studies Etiology may be secondary to sepsis or hypoperfusion from hypotension Improving through time DVT Prophylaxis Heparin drip, SCDs Problem Qualifiers (1) DVT (deep venous thrombosis): Flash Del Valle MD Feb 21, 2017 7:38 am
[2017-02-21] MEDS: RESP: ALBUTEROL 2.5 MG/IPRATROPIUM 0.5 MG NEB (SCH) NEB ×3 (08:50→20:16)
[2017-02-21] MEDS: DOCUSATE SODIUM 100 MG CAP PO SCH ×2 (09:07→19:37)
[2017-02-21] MEDS: METOPROLOL TARTRATE 25 MG TAB PO SCH ×2 (09:07→19:37)
[2017-02-21] MEDS: LEVOFLOXACIN 250 MG TAB PO SCH (09:07)
[2017-02-21] MEDS: PANTOPRAZOLE SODIUM 40 MG VIAL IV SCH (09:08)
[2017-02-21] MEDS: ASCORBIC ACID 500 MG TAB PO SCH (09:08)
[2017-02-21] MEDS: SODIUM CHLORIDE 0.9% FLUSH 10 ML FLUSH IV FLUSH SCH ×2 (09:08→19:37)
[2017-02-21 09:17] LABS: HEMATOCRIT 28.2 % (39.0-51.0); MEAN CELL VOLUME 87.4 FL (80.0-100.0); MEAN CORPUSCULAR HEMOGLOBIN 30.4 PG (27.0-34.0); MEAN CORPUSCULAR HGB CONC 34.7 % (32.0-36.0); PLATELET COUNT 305 TH/MM3 (150-450); RED BLOOD COUNT 3.23 MIL/MM3 (4.50-5.90); RED CELL DISTRIBUTION WIDTH 16.1 % (11.6-17.2); REVIEW FLAG FINAL; WHITE BLOOD COUNT 10.9 TH/MM3 (4.0-11.0)
[2017-02-21 09:24] LABS: APTT (PATIENT) 56.6 SEC (24.3-30.1); INTERNATIONAL NORMALIZED RATIO 1.1 RATIO; PROTHROMBIN TIME - PATIENT 12.7 SEC (9.8-11.6)
[2017-02-21 09:41] LABS: BICARBONATE 25.6 MEQ/L (21.0-32.0); POTASSIUM 3.3 MEQ/L (3.5-5.1)
[2017-02-21] MEDS: RIVAROXABAN 15 MG TAB PO SCH (19:37)
[2017-02-22] VITALS (8 sets, daily range): BP systolic 123–185; BP diastolic 65–102; PULSE 81–102; RESP 18–20; TEMP 96.6–98.8; O2SAT 96–100
[2017-02-22] MEDS: INSULIN NovoLIN REGULAR SUPPLEMENTAL SCALE SQ SCH ×4 (00:15→18:46)
[2017-02-22] MEDS: CHLORHEXIDINE GLUCONATE 2 % 1 PACK (2 CLOTHS) TOP SCH (03:22)
[2017-02-22] MEDS: HYDROCORTISONE SOD SUCCINATE 100 MG VIAL IV PUSH SCH ×2 (05:42→18:31)
[2017-02-22] MEDS: CHLORHEXIDINE 0.12% (ORAL KIT) 15 ML CUP MT SCH ×2 (08:00→21:41)
[2017-02-22] MEDS: RESP: ALBUTEROL 2.5 MG/IPRATROPIUM 0.5 MG NEB (SCH) NEB ×3 (08:04→19:12)
[2017-02-22] MEDS: SODIUM CHLORIDE 0.9% FLUSH 10 ML FLUSH IV FLUSH SCH ×2 (09:00→21:40)
[2017-02-22] MEDS: DOCUSATE SODIUM 100 MG CAP PO SCH ×2 (09:08→21:40)
[2017-02-22] MEDS: LEVOFLOXACIN 250 MG TAB PO SCH (09:08)
[2017-02-22] MEDS: RIVAROXABAN 15 MG TAB PO SCH ×2 (09:08→21:40)
[2017-02-22] MEDS: METOPROLOL TARTRATE 25 MG TAB PO SCH ×2 (09:09→21:40)
[2017-02-22] MEDS: ASCORBIC ACID 500 MG TAB PO SCH (09:09)
[2017-02-22] MEDS: BENZOCAINE-MENTHOL (SUGAR FREE) 15 MG-3.6 MG LOZENGE BUCCAL PRN ×2 (09:10→16:09)
[2017-02-22] MEDS: PANTOPRAZOLE SODIUM 40 MG VIAL IV SCH (09:10)
[2017-02-22 10:09] LABS: HEMATOCRIT 30.8 % (39.0-51.0); MEAN CELL VOLUME 88.7 FL (80.0-100.0); MEAN CORPUSCULAR HEMOGLOBIN 30.6 PG (27.0-34.0); MEAN CORPUSCULAR HGB CONC 34.5 % (32.0-36.0); PLATELET COUNT 295 TH/MM3 (150-450); RED BLOOD COUNT 3.47 MIL/MM3 (4.50-5.90); RED CELL DISTRIBUTION WIDTH 16.6 % (11.6-17.2); REVIEW FLAG FINAL; WHITE BLOOD COUNT 10.2 TH/MM3 (4.0-11.0)
[2017-02-22 10:16] LABS: APTT (PATIENT) 53.4 SEC (24.3-30.1)
[2017-02-22] MEDS: NYSTATIN 100,000 U/GM OINT 15 GM TUBE TOPICAL SCH ×2 (14:16→18:31)
--- NOTE | 2017-02-22 14:43 | HHI.PR ---
Subjective Remarks Off oxygen and seen today. Patient still reports he needs oxygen intermittently. He complains of a rash in his groin. Strength balance and ambulation is slowly improving. Liver function testing has slowly improved and if this improves further he will be ready for discharge. Objective Vital Signs Date Time Temp Pulse Resp B/P Pulse Ox O2 Delivery O2 Flow Rate FiO2 02/22/17 12:28 97.7 89 18 133/65 99 02/22/17 08:00 98.1 82 18 182/102 100 02/22/17 03:45 97.8 82 18 171/98 96 02/22/17 01:03 81 168/84 02/22/17 00:00 97.9 101 18 185/95 99 02/21/17 21:56 97.0 93 18 153/91 97 02/21/17 20:16 99 Nasal Cannula 2.00 02/21/17 16:56 98.6 97 20 156/68 99 I/O 02/21/17 02/21/17 02/21/17 02/22/17 02/22/17 02/22/17 06:59 14:59 22:59 06:59 14:59 22:59 Intake Total 791 ml Output Total 525 ml 875 ml 500 ml 1175 ml Balance -525 ml -875 ml 291 ml -1175 ml Intake Oral 660 ml IV Total 131 ml Output Urine Total 525 ml 875 ml 500 ml 1175 ml # Bowel Movements 0 1 Result Diagram: 02/22/17 0937 02/21/17 0820 Objective Remarks GENERAL: NAD, A&Ox3 HEAD: Normocephalic. NECK: Supple, trachea midline. No lymphadenopathy. EYES: No scleral icterus. No injection or drainage. CARDIOVASCULAR: Regular rate and rhythm without murmurs, gallops, or rubs. RESPIRATORY: Breath sounds equal bilaterally. No accessory muscle use. GASTROINTESTINAL: Abdomen soft, non-tender, nondistended. MUSCULOSKELETAL: No cyanosis, or edema. SKIN: Warm and dry. NEURO: No focal neurological deficitis. A/P Problem List: (1) s/p adrenal hemrhage (2) TIBURCIO (acute kidney injury) ICD Code: N17.9 (3) Elevated liver function tests ICD Code: R79.89 (4) DVT (deep venous thrombosis) ICD Code: I82.409 (5) Altered mental status ICD Code: R41.82 (6) Sepsis ICD Code: A41.9 (7) Hyponatremia ICD Code: E87.1 (8) Anemia ICD Code: D64.9 (9) Acute hyperkalemia ICD Code: E87.5 Assessment and Plan Assessment and Plan 76-year-old male admitted with severe sepsis, encephalopathy, and renal failure with severe hyponatremia. Ambulatory status continues to improve. No further wheezing. Tolerating Xarelto. Continue PT. Follow liver function tests. Nystatin for Suzan infection in groin. Constipation When necessary milk of magnesia Twice a day Colace next Hyponatremia Resolved Follow sodium level Hyperkalemia Resolved Follow potassium levels Encephalopathy Returned to baseline Monitor for any recurrence Spontaneous Cardiac arrest status post CPR Tachycardia May have been metabolic in origin Follow on telemetry Continue Lopressor Metabolic acidosis Resolved Hypotension Resolved Anemia 2 units packed red blood cells transfused 02/14/17 Stabilized follow CBC Transfuse if needed History of bilateral adrenal hemorrhages Adrenal insufficiency hydrocortisone 50mg IV Q12 Acute kidney injury Improving through time Continue IV hydration Follow renal function Acute respiratory failure on mechanical ventilation Resolved Lupus anticoagulant positive Follow secondary studies History of DVT status post IVC filter Hypercoagulability state with lupus Heparin drip Follow hemoglobin Follow thrombocytes Sepsis Lactic acidosis GPC bacteremia Vancomycin Levaquin Infectious disease physician is also following Follow blood cultures History of COPD Respiratory failure Acute respiratory failure resolved Continue with oxygen keep sat >92% Bronchodilators, IS As needed albuterol 3 times a day DuoNeb, scheduled Elevated LFTs Follow liver function studies Etiology may be secondary to sepsis or hypoperfusion from hypotension Improving through time DVT Prophylaxis Heparin drip, SCDs Problem Qualifiers (1) DVT (deep venous thrombosis): Flash Del Valle MD Feb 22, 2017 14:43
[2017-02-23] VITALS (10 sets, daily range): BP systolic 142–174; BP diastolic 62–106; PULSE 84–98; RESP 18–20; TEMP 97.5–98.6; O2SAT 81–100
[2017-02-23] MEDS: INSULIN NovoLIN REGULAR SUPPLEMENTAL SCALE SQ SCH ×4 (00:37→17:58)
[2017-02-23] MEDS: CHLORHEXIDINE GLUCONATE 2 % 1 PACK (2 CLOTHS) TOP SCH (03:34)
[2017-02-23] MEDS: HYDROCORTISONE SOD SUCCINATE 100 MG VIAL IV PUSH SCH ×2 (06:07→17:10)
[2017-02-23] MEDS: RESP: ALBUTEROL 2.5 MG/IPRATROPIUM 0.5 MG NEB (SCH) NEB ×2 (08:10→12:39)
[2017-02-23] MEDS: RIVAROXABAN 15 MG TAB PO SCH ×2 (08:51→21:04)
[2017-02-23] MEDS: METOPROLOL TARTRATE 25 MG TAB PO SCH ×2 (08:51→21:04)
[2017-02-23] MEDS: ASCORBIC ACID 500 MG TAB PO SCH (08:52)
[2017-02-23] MEDS: LEVOFLOXACIN 250 MG TAB PO SCH (08:52)
[2017-02-23] MEDS: DOCUSATE SODIUM 100 MG CAP PO SCH ×2 (08:52→21:04)
[2017-02-23] MEDS: BENZOCAINE-MENTHOL (SUGAR FREE) 15 MG-3.6 MG LOZENGE BUCCAL PRN ×3 (08:52→21:03)
[2017-02-23] MEDS: PANTOPRAZOLE SODIUM 40 MG VIAL IV SCH (09:00)
[2017-02-23] MEDS: SODIUM CHLORIDE 0.9% FLUSH 10 ML FLUSH IV FLUSH SCH ×2 (09:00→21:04)
[2017-02-23] MEDS: NYSTATIN 100,000 U/GM OINT 15 GM TUBE TOPICAL SCH ×4 (09:00→17:11)
[2017-02-23] MEDS: CHLORHEXIDINE 0.12% (ORAL KIT) 15 ML CUP MT SCH ×2 (09:01→20:00)
[2017-02-23] MEDS ORDERED: ALBU0.08 NEB (10:55)
[2017-02-23] MEDS ORDERED: XARE15TA PO (10:55)
[2017-02-23] MEDS ORDERED: OXYC-392 PO ×2 (10:55→11:35)
[2017-02-23] MEDS ORDERED: BENZ1LOZ5 BUCCAL (10:55)
[2017-02-23] MEDS ORDERED: DOCU1CAP39 PO (10:55)
[2017-02-23] MEDS ORDERED: XARE20TA PO ×2 (10:55)
[2017-02-23] MEDS ORDERED: METO25TA3 PO (10:55)
[2017-02-23] MEDS ORDERED: PRED10PA PO (10:55)
[2017-02-23] MEDS ORDERED: OXYC-395 PO (11:35)
[2017-02-23] MEDS ORDERED: LEVA250T14 PO (14:30)
--- NOTE | 2017-02-23 14:30 | HHI.DS ---
Discharge Summary Admission Date Feb 14, 2017 at 14:22 Discharge Date: Feb 23, 2017 Admitting Diagnosis SEVERE SEPSIS/AMS WITH HYPONATREMIA/HYPERKALEMIA (1) Normocytic anemia ICD Code: D64.9 Diagnosis: Principal (2) TIBURCIO (acute kidney injury) ICD Code: N17.9 Diagnosis: Principal (3) Elevated liver function tests ICD Code: R79.89 Diagnosis: Principal (4) DVT (deep venous thrombosis) ICD Code: I82.409 Diagnosis: Principal (5) Sepsis ICD Code: A41.9 Diagnosis: Principal (6) Altered mental status ICD Code: R41.82 Diagnosis: Principal (7) Hyponatremia ICD Code: E87.1 Diagnosis: Principal Procedures Intubation central line Brief History - From Admission 76-year-old Male. 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 Patient was found confused and altered by his roommate on 01/04. Was transferred to [facility]. CT abdomen and pelvis revealed a right-sided 3.6 x 2.5 cm left 2.5 bilateral adrenal hemorrhage. He was also diagnosed to have an ileus during that admission. He was evaluated by general surgery, GI who recommended medical management for ileus. He was also evaluated by Dr. Arauz from hematology and in view of bilateral adrenal hemorrhages he was felt to be too high risk for full anticoagulation hence an IVC filter was placed at the time due to his hypercoagulable state. He was positive for lupus anticoagulant and MTHFR gene mutation (heterozygous state). Patient was discharged on January 25, 2017 on a prednisone taper over 13 days which she completed around 02/08/2017. He was discharged to rehabilitation. Patient was not feeling well for the last week or so prior to current admission on 02/14 according to his sister whom I contacted by phone. He was sent to Dr. Trevino's office on 02/14 where he was noted to be confused and disoriented and hypotensive and she was sent to the ER. He had been noted to have a drop in hemoglobin at the rehabilitation a few days back. Patient was evaluated in the ER and was noted to have an altered mental status with sodium of 115, acute kidney injury with creatinine 3.83, potassium 6.2 and significant metabolic acidosis with bicarbonate of 15.8. His hemoglobin was 7 and white count was 17, 000. His systolic blood pressure was in the 70s initially. He received 2 L normal saline bolus was initiated on empiric vancomycin and Zosyn after obtaining blood cultures. While in the ER he became bradycardic and subsequently had an asystole for which CPR/ACLS protocol was initiated for about 15 minutes following which she had return of spontaneous circulation. He was intubated during the code and placed on mechanical ventilation. He was noted to have an elevated lactic acid of 6.2. He underwent CT of his abdomen and pelvis which was unremarkable. Head CT was negative for bleed. I evaluated patient after his arrival to the ICU from CAT scan. At that time he was orally intubated on mechanical ventilation appeared encephalopathic and not following commands. He did have his eyes open spontaneously at the time and was extremely tachypneic on mechanical ventilation due to his metabolic acidosis. I emergently placed a right subclavian central venous catheter as he was hypotensive requiring Levophed for pressor support. He had received 2 L normal saline bolus earlier and was being initiated on a bicarbonate drip. I also emergently placed a right axillary a line. History was obtained by reviewing records and discussion with patient's sister Karen Del Valle as well as ER physician. CBC/BMP: 02/22/17 0937 02/21/17 0820 Significant Findings Laboratory Tests Test 02/20/17 02/21/17 02/22/17 02/22/17 18:20 08:20 09:37 09:39 Activated Partial 52.5 SEC 56.6 SEC 53.4 SEC Thromboplast Time (24.3-30.1) (24.3-30.1) (24.3-30.1) Red Blood Count 3.23 MIL/MM3 3.47 MIL/MM3 (4.50-5.90) (4.50-5.90) Hemoglobin 9.8 GM/DL 10.6 GM/DL (13.0-17.0) (13.0-17.0) Hematocrit 28.2 % 30.8 % (39.0-51.0) (39.0-51.0) Prothrombin Time 12.7 SEC (9.8-11.6) Potassium Level 3.3 MEQ/L (3.5-5.1) Estimat Glomerular Filtration 70 ML/MIN (>89) Rate Calcium Level 8.0 MG/DL (8.5-10.1) PE at Discharge GENERAL: NAD, A&Ox3 HEAD: Normocephalic. NECK: Supple, trachea midline. No lymphadenopathy. EYES: No scleral icterus. No injection or drainage. CARDIOVASCULAR: Regular rate and rhythm without murmurs, gallops, or rubs. RESPIRATORY: Breath sounds equal bilaterally. No accessory muscle use. GASTROINTESTINAL: Abdomen soft, non-tender, nondistended. MUSCULOSKELETAL: No cyanosis, or edema. SKIN: Warm and dry. NEURO: No focal neurological deficitis. Hospital Course Mr. Wilkins is a 76-year-old male. This admission to the hospital occurred after he had previously been admitted for adrenal hemorrhage. He came here after not feeling well for about a week. He had become confused and disoriented on 02/14/17. When seeing his primary care doctor she sent him to the ER. It was also noted he had a drop in his hemoglobin. In the ER they determined he had a sodium level of 115 with acute renal failure and a creatinine level of 3.3. Potassium also reflected renal failure with a value of 6.2. The patient was in metabolic acidosis with bicarbonate 15.8. Hemoglobin was determined to be 7 and leukocytosis was present. He met septic criteria. He was hypotensive. Septic shock is present. Treatment with vancomycin and Zosyn occurred. While receiving treatments in the emergency room he became bradycardic and then asystolic. CPR and ACLS was provided for about 15 minutes at which time the patient regained spontaneous circulation. Status post code he was intubated and sent to the ICU. Lactic acid level was found to be 6.2. Liver function tests were also elevated. Lipase is present at baseline and he has hypercoagulable syndrome. He had previously been on Xarelto and will continue on Xarelto at discharge. Coumadin had been considered and patient had renal compromise but with resolution of his renal acute kidney injury he is safe to return to Xarelto. He says that he does not do well with Coumadin as tried in the past and failed. His stay here has been a slow recovery after undergoing his medical disturbances. He is ambulating well with PT. She has had resolution of his renal failure and liver function tests are gradually improving to time. Multiorgan failure suspected to be the cause of his renal failure and liver failure. With resolution of his septic shock and sepsis he has had improvement through time. At this point he has pain His anterior rib cage which is likely related to CPR and he may have some rib fractures secondary to CPR. No respiratory distress and no pulmonary edema. He was on oxygen for a while but was able to be weaned off oxygen. Today he is determined to be medically stable for discharge to residential facility with continuation of rehabilitation at that place. He should continue to heal and improved her time and is expected to return to his prior baseline. Discharge to residential facility today if bed available. Pt Condition on Discharge: Good Discharge Disposition: Discharge to SNF Discharge Time: > 30 minutes Discharge Instructions DIET: Follow Instructions for: As Tolerated, No Restrictions Activities you can perform: Regular-No Restrictions Follow up Referrals: PCP Follow-up - 2 Weeks New Medications: Oxycodone (Oxycodone) 10 Mg Tab 10 MG PO Q4H PRN Pain Scale 8 to 10 #20 Ref 0 TAB Prednisone (21) 10 mg tab Dose Pack (Prednisone (21) 10 mg tab Dose Pack) 10 Mg Pack 10 MG PO DIRECTED Inflammation #1 Ref 0 DSPK Rivaroxaban (Xarelto) 20 Mg Tab 20 MG PO DAILY Blood Clot Prevention #30 Ref 0 TAB Albuterol Neb (Albuterol Neb) 2.5 Mg/3 Ml Neb 2.5 MG NEB Q4HR NEB PRN Wheezing, Dyspnea #30 NEBULE Benzocaine-Menthol Lozenge (Cepacol Sore Throat Lozenge) 15-3.6 Mg Lozg 1 LOZENGE BUCCAL Q2HR PRN tickle in throat #30 LOZENGE Docusate Sodium (Dok) 100 Mg Cap 100 MG PO BID Constipation #30 CAP Metoprolol Tartrate (Metoprolol Tartrate) 25 Mg Tab 25 MG PO Q12HR Blood Pressure Management #60 TAB Oxycodone (Oxycodone) 5 Mg Tab 5 MG PO Q4H PRN Pain Scale 3 to 7 #30 TAB Rivaroxaban (Xarelto) 15 Mg Tab 15 MG PO BID Blood Clot Prevention #42 TAB Continued Medications: Amlodipine (Norvasc) 10 Mg Tab 10 MG PO DAILY HTN Days 30 TAB Docusate Sodium (Dok) 100 Mg Cap 100 MG PO BID onstipation #20 CAP Multiple Vitamin (Thera/Beta-Carotene) 1 Tab Tab 1 TAB PO DAILY SUPP Days 30 TAB Discontinued Medications: Acetaminophen (Tylenol) 325 Mg Tab 650 MG PO Q6H PRN PAIN SCALE 1 TO 4 Ref 0 TAB Albuterol Neb (Albuterol Neb) 2.5 Mg/3 Ml Neb 2.5 MG INH Q8HR PRN CONSTIPATION Days 5 NEBULE Ascorbic Acid ER (Vitamin C ER) 500 Mg Isabel 500 MG PO Nutritional Supplement Ref [address] (Aspirin EC) 81 Mg Tabdr 81 MG PO DAILY DVT Days 30 TAB Doxycycline Hyclate (Doxycycline Hyclate) 100 Mg Cap 100 MG PO DAILY Infection Ref 0 CAP Lactobacillus Rhamnosus (GG) (Culturelle) 10 B Cell Cap 1 CAP PO DAILY Nutritional Supplement Ref 0 CAP Magnesium Hydroxide Liq (Milk of Magnesia Liq) 400 Mg/5 Ml Susp 30 ML PO DAILY PRN INDIGESTION OR UPSET STOMACH #1 Ref 0 BOTTLE Metoprolol Tartrate (Metoprolol Tartrate) 50 Mg Tab 50 MG PO BID #60 Ref 0 TAB Mineral Oil Enema (Fleet Oil Enema) 118 Ml Enem 1 EA RECTAL DIRECTED PRN CONSTIPATION #1 Ref 0 BOTTLE Ondansetron Odt (Zofran Odt) 4 Mg Tab 4 MG SL Q6HR PRN Nausea/Vomiting #30 Ref 0 TAB Sulfamethoxazole-Trimethoprim (Sulfamethoxazole-Trimethoprim) 800-160 Mg Tab 1 TAB PO BID Infection Ref 0 TAB Thiamine (Vitamin B-1) 100 Mg Tab 100 MG PO DAILY Nutritional Supplement Ref 0 TAB Additional Information Levaquin will also be continued for one day. And discontinued after treatment is provided on 02/24/17. Flash Del Valle MD Feb 23, 2017 14:29
[2017-02-23 16:58] LABS: AUTOMATED NEUTROPHIL # 10.3 TH/MM3 (1.8-7.7); BASOPHIL % 0.1 % (0.0-2.0); EOSINOPHIL # 0.1 TH/MM3 (0-0.4); EOSINOPHIL % 0.8 % (0.0-4.0); HEMATOCRIT 34.1 % (39.0-51.0); LYMPH % 7.6 % (9.0-44.0); LYMPHOCYTE # 0.9 TH/MM3 (1.0-4.8); MEAN CELL VOLUME 90.9 FL (80.0-100.0); MEAN CORPUSCULAR HEMOGLOBIN 29.3 PG (27.0-34.0); MEAN CORPUSCULAR HGB CONC 32.3 % (32.0-36.0); MONO % 4.9 % (0.0-8.0); NEUT % 86.6 % (16.0-70.0); PLATELET COUNT 340 TH/MM3 (150-450); RED BLOOD COUNT 3.75 MIL/MM3 (4.50-5.90); RED CELL DISTRIBUTION WIDTH 16.9 % (11.6-17.2); WHITE BLOOD COUNT 11.9 TH/MM3 (4.0-11.0)
[2017-02-23 17:00] LABS: HEMO FLAGS AUTO DIFF
[2017-02-23 17:27] LABS: ALKALINE PHOSPHATASE 168 U/L (45-117); ALT (GPT) 254 U/L (12-78); ANION GAP 11 MEQ/L (5-15); AST (GOT) 71 U/L (15-37); BANDS 1 % (0-6); BICARBONATE 28.8 MEQ/L (21.0-32.0); BLOOD UREA NITROGEN 18 MG/DL (7-18); CHLORIDE 95 MEQ/L (98-107); GLOMERULAR FILTRATION RATE 63 ML/MIN (>89); METAMYELOCYTES 1 % (0-1); NEUTROPHIL # MANUAL DIFF 10.4 TH/MM3 (1.8-7.7); POLYS (SEG NEUTROPHILS) 85 % (16-70); POTASSIUM 3.5 MEQ/L (3.5-5.1); SODIUM (NA) 135 MEQ/L (136-145); TOTAL BILIRUBIN ADULT 0.4 MG/DL (0.2-1.0); WBC DIFF SAMPLE 100
[2017-02-23 17:28] LABS: TOXIC GRANULATION 1+ (NORMAL)
[2017-02-23 17:29] LABS: PLATELET MORPHOLOGY NORMAL (NORMAL)
[2017-02-23 17:30] LABS: PLATELET ESTIMATE SMEAR NORMAL (NORMAL)
[2017-02-23 17:31] LABS: SCAN/DIFF FINAL DIFF MANUAL
[2017-02-23] MEDS: cloNIDine HCL 0.1 MG TAB PO PRN (18:01)
[2017-02-24] VITALS (7 sets, daily range): BP systolic 128–161; BP diastolic 71–87; PULSE 67–90; RESP 18; TEMP 97.2–99; O2SAT 95–100
[2017-02-24] MEDS: INSULIN NovoLIN REGULAR SUPPLEMENTAL SCALE SQ SCH ×4 (01:17→17:27)
[2017-02-24] MEDS: CHLORHEXIDINE GLUCONATE 2 % 1 PACK (2 CLOTHS) TOP SCH (03:05)
[2017-02-24] MEDS: HYDROCORTISONE SOD SUCCINATE 100 MG VIAL IV PUSH SCH (05:34)
[2017-02-24] MEDS: BENZOCAINE-MENTHOL (SUGAR FREE) 15 MG-3.6 MG LOZENGE BUCCAL PRN ×2 (05:37→14:34)
[2017-02-24] MEDS: CHLORHEXIDINE 0.12% (ORAL KIT) 15 ML CUP MT SCH ×2 (09:09→20:00)
[2017-02-24] MEDS: DOCUSATE SODIUM 100 MG CAP PO SCH ×2 (09:25→21:19)
[2017-02-24] MEDS: LEVOFLOXACIN 250 MG TAB PO SCH (09:25)
[2017-02-24] MEDS: RIVAROXABAN 15 MG TAB PO SCH ×2 (09:25→21:19)
[2017-02-24] MEDS: METOPROLOL TARTRATE 25 MG TAB PO SCH ×2 (09:25→21:19)
[2017-02-24] MEDS: ASCORBIC ACID 500 MG TAB PO SCH (09:28)
[2017-02-24] MEDS: PANTOPRAZOLE SODIUM 40 MG VIAL IV SCH (09:29)
[2017-02-24] MEDS: NYSTATIN 100,000 U/GM OINT 15 GM TUBE TOPICAL SCH ×3 (09:40→17:24)
[2017-02-24] MEDS: SODIUM CHLORIDE 0.9% FLUSH 10 ML FLUSH IV FLUSH SCH ×2 (09:40→21:19)
[2017-02-24] MEDS ORDERED: PRED10 PO (10:01)
--- NOTE | 2017-02-24 11:35 | HHI.PR ---
Subjective Remarks Adjustment and steroid treatments today. Patient weaned from IV steroids down to by mouth treatment. He should be on steroids indefinitely secondary to chronic renal insufficiency related to adrenal bleed. Objective Vital Signs Date Time Temp Pulse Resp B/P Pulse Ox O2 Delivery O2 Flow Rate FiO2 02/24/17 08:17 98 21 02/24/17 08:01 98.5 67 18 161/82 95 02/24/17 03:05 97.5 73 18 156/80 100 02/24/17 01:35 97.8 81 18 128/71 100 02/23/17 21:09 96 21 02/23/17 21:00 97 145/71 02/23/17 20:00 98.1 98 20 173/97 100 02/23/17 16:00 98.6 90 18 172/90 95 02/23/17 12:00 97.5 84 18 149/81 94 I/O 02/23/17 02/23/17 02/23/17 02/24/17 02/24/17 02/24/17 07:00 15:00 23:00 07:00 15:00 23:00 Output Total 1000 ml Balance -1000 ml Output Urine Total 1000 ml # Voids 1 2 # Bowel Movements 1 Result Diagram: 02/23/17 1543 02/23/17 1543 Objective Remarks GENERAL: NAD, A&Ox3 HEAD: Normocephalic. NECK: Supple, trachea midline. No lymphadenopathy. EYES: No scleral icterus. No injection or drainage. CARDIOVASCULAR: Regular rate and rhythm without murmurs, gallops, or rubs. RESPIRATORY: Breath sounds equal bilaterally. No accessory muscle use. GASTROINTESTINAL: Abdomen soft, non-tender, nondistended. MUSCULOSKELETAL: No cyanosis, or edema. SKIN: Warm and dry. NEURO: No focal neurological deficitis. A/P Problem List: (1) s/p adrenal hemrhage (2) TIBURCIO (acute kidney injury) ICD Code: N17.9 (3) Elevated liver function tests ICD Code: R79.89 (4) DVT (deep venous thrombosis) ICD Code: I82.409 (5) Altered mental status ICD Code: R41.82 (6) Sepsis ICD Code: A41.9 (7) Hyponatremia ICD Code: E87.1 (8) Anemia ICD Code: D64.9 (9) Acute hyperkalemia ICD Code: E87.5 Assessment and Plan Assessment and Plan 76-year-old male admitted with severe sepsis, encephalopathy, and renal failure with severe hyponatremia. Continue by mouth steroids for life secondary to chronic adrenal insufficiency. We'll continue to physical therapy in the hospital either until patient is found a senior living facility until he rehabs to a point where he can discharge to home. Constipation When necessary milk of magnesia Twice a day Colace next Hyponatremia Resolved Follow sodium level Hyperkalemia Resolved Follow potassium levels Encephalopathy Returned to baseline Monitor for any recurrence Spontaneous Cardiac arrest status post CPR Tachycardia May have been metabolic in origin Follow on telemetry Continue Lopressor Metabolic acidosis Resolved Hypotension Resolved Anemia 2 units packed red blood cells transfused 02/14/17 Stabilized follow CBC Transfuse if needed History of bilateral adrenal hemorrhages Chronic Adrenal insufficiency (permanent) hydrocortisone 50mg IV Q12 weaned to prednisone 10 mg by mouth twice a day Plan to discharge patient on prednisone 10 mg by mouth daily Acute kidney injury Improving through time Continue IV hydration Follow renal function Acute respiratory failure on mechanical ventilation Resolved Lupus anticoagulant positive Follow secondary studies History of DVT status post IVC filter Hypercoagulability state with lupus Heparin drip Follow hemoglobin Follow thrombocytes Sepsis Lactic acidosis GPC bacteremia Vancomycin Levaquin Infectious disease physician is also following Follow blood cultures History of COPD Respiratory failure Acute respiratory failure resolved Continue with oxygen keep sat >92% Bronchodilators, IS As needed albuterol 3 times a day DuoNeb, scheduled Elevated LFTs Follow liver function studies Etiology may be secondary to sepsis or hypoperfusion from hypotension Improving through time DVT Prophylaxis Heparin drip, SCDs Discharge planning Patient medically cleared and stable for discharge to rehabilitation on . No placement available as he has used up his senior living facility days at his last posthospitalization care. Problem Qualifiers (1) DVT (deep venous thrombosis): Flash Del Valle MD Feb 24, 2017 11:35
[2017-02-24] MEDS: predniSONE 10 MG TAB PO SCH (21:19)
[2017-02-25] VITALS (7 sets, daily range): BP systolic 124–186; BP diastolic 76–104; PULSE 74–91; RESP 18–20; TEMP 97.7–99.2; O2SAT 95–100
[2017-02-25] MEDS: INSULIN NovoLIN REGULAR SUPPLEMENTAL SCALE SQ SCH ×3 (00:51→12:51)
[2017-02-25] MEDS: CHLORHEXIDINE GLUCONATE 2 % 1 PACK (2 CLOTHS) TOP SCH (04:00)
[2017-02-25] MEDS: CHLORHEXIDINE 0.12% (ORAL KIT) 15 ML CUP MT SCH ×2 (08:00→20:00)
[2017-02-25] MEDS: METOPROLOL TARTRATE 25 MG TAB PO SCH ×2 (08:15→21:22)
[2017-02-25] MEDS: ASCORBIC ACID 500 MG TAB PO SCH (08:15)
[2017-02-25] MEDS: predniSONE 10 MG TAB PO SCH (08:15)
[2017-02-25] MEDS: BENZOCAINE-MENTHOL (SUGAR FREE) 15 MG-3.6 MG LOZENGE BUCCAL PRN ×2 (08:15→21:23)
[2017-02-25] MEDS: DOCUSATE SODIUM 100 MG CAP PO SCH ×2 (08:15→21:22)
[2017-02-25] MEDS: RIVAROXABAN 15 MG TAB PO SCH ×2 (08:15→21:23)
[2017-02-25] MEDS: PANTOPRAZOLE SODIUM 40 MG VIAL IV SCH (08:15)
[2017-02-25] MEDS: SODIUM CHLORIDE 0.9% FLUSH 10 ML FLUSH IV FLUSH SCH ×2 (08:16→21:23)
[2017-02-25] MEDS: NYSTATIN 100,000 U/GM OINT 15 GM TUBE TOPICAL SCH ×3 (08:19→17:53)
[2017-02-25] MEDS: cloNIDine HCL 0.1 MG TAB PO PRN (08:52)
[2017-02-25 09:45] LABS: HEMATOCRIT 30.2 % (39.0-51.0); MEAN CELL VOLUME 90.6 FL (80.0-100.0); MEAN CORPUSCULAR HEMOGLOBIN 30.5 PG (27.0-34.0); MEAN CORPUSCULAR HGB CONC 33.7 % (32.0-36.0); PLATELET COUNT 321 TH/MM3 (150-450); RED BLOOD COUNT 3.33 MIL/MM3 (4.50-5.90); RED CELL DISTRIBUTION WIDTH 16.9 % (11.6-17.2); REVIEW FLAG FINAL; WHITE BLOOD COUNT 15.3 TH/MM3 (4.0-11.0)
--- NOTE | 2017-02-25 14:36 | HHI.PR ---
Subjective Remarks Follow-up for adrenal insufficiency due to previous history of bilateral adrenal hemorrhage, DVT, hyponatremia, hyperkalemia. Mr. Wilkins is currently doing well. Denies any chest pain, shortness of breath, fever or chills. Objective Vitals Vital Signs Date Time Temp Pulse Resp B/P Pulse Ox O2 Delivery O2 Flow Rate FiO2 02/25/17 12:36 98.1 87 20 131/81 99 02/25/17 08:45 98 21 02/25/17 08:00 98.8 82 20 184/104 98 02/25/17 07:20 Room Air 02/25/17 06:34 98.9 74 20 186/93 97 02/25/17 00:55 99.0 82 18 151/82 95 02/24/17 21:51 99.0 90 18 137/80 97 02/24/17 16:00 97.2 80 18 151/84 96 I/O 02/24/17 02/24/17 02/24/17 02/25/17 02/25/17 02/25/17 07:00 15:00 23:00 07:00 15:00 23:00 Intake Total 480 ml Output Total 1000 ml 1300 ml 550 ml 1500 ml Balance -1000 ml -820 ml -550 ml -1500 ml Intake Oral 480 ml Output Urine Total 1000 ml 1300 ml 550 ml 1500 ml # Voids 2 1 # Bowel Movements 0 Result Diagram: 02/25/17 0857 02/23/17 1543 Imaging Last Impressions Chest X-Ray 02/19/17 0000 Signed Impressions: Service Date/Time: Sunday, February 19, 2017 08:56 - CONCLUSION: Interstitial prominence and mild air space disease. Small bilateral effusions. Matthew Aguirre MD Lower Extremity Ultrasound 02/16/17 0000 Signed Impressions: Service Date/Time: Thursday, February 16, 2017 15:38 - CONCLUSION: Bilateral DVT as above. DVT on the left is no since January 04. Santos Arce MD Liver Ultrasound 02/16/17 0000 Signed Impressions: Service Date/Time: Thursday, February 16, 2017 07:43 - CONCLUSION: There is no intrahepatic biliary duct dilatation. Garrison Clinton MD FACR Head CT 02/14/17 1152 Signed Impressions: Service Date/Time: February 12:22 - CONCLUSION: 1. No acute intracranial abnormality. Flash Clinton MD Abdomen/Pelvis CT 02/14/17 0000 Signed Impressions: Service Date/Time: February 14:38 - CONCLUSION: 1. Mild gaseous distention of the cecum. 2. Very minimal right basilar effusion. 3. No focal abscess identified. 4. Minimal left inguinal hernia. Flash Clinton MD Objective Remarks GENERAL: Alert, NAD. SKIN: Warm and dry. HEAD: Normocephalic. EYES: No scleral icterus. No injection or drainage. NECK: Supple, trachea midline. No JVD or lymphadenopathy. CARDIOVASCULAR: Regular rate and rhythm without murmurs, gallops, or rubs. RESPIRATORY: Breath sounds equal bilaterally. No accessory muscle use. GASTROINTESTINAL: Abdomen soft, non-tender, nondistended. MUSCULOSKELETAL: No cyanosis, or edema. BACK: Nontender without obvious deformity. No CVA tenderness. Procedures Intubation central line A/P Problem List: (1) Normocytic anemia ICD Code: D64.9 Status: Acute (2) TIBURCIO (acute kidney injury) ICD Code: N17.9 Status: Acute (3) Elevated liver function tests ICD Code: R79.89 Status: Acute (4) DVT (deep venous thrombosis) ICD Code: I82.409 Status: Acute (5) Sepsis ICD Code: A41.9 Status: Acute (6) Altered mental status ICD Code: R41.82 Status: Acute (7) Hyponatremia ICD Code: E87.1 Status: Acute Assessment and Plan Mr. Noble is a pleasant 76-year-old male with a history of bilateral adrenal hemorrhage, DVT status post IVC filter placement who presented to the emergency department on 02/14/2017 due to delirium, hypertension as well as lab finding of hyponatremia and hyperkalemia. His hemoglobin was 7 and white blood cell count was 17,000. His systolic blood pressure on admission was in the 70s initially. Patient received 2 L of normal saline bolus along with vancomycin and Zosyn after obtaining blood cultures. Patient was bradycardic and subsequently underwent ACLS protocol due to asystole with return of spontaneous circulation. He was intubated and placed on mechanical ventilation. CT abdomen pelvis as well as CT head were unremarkable for any acute findings. Patient required IV fluid as well as Levophed for pressure support patient was extubated on 02/15/2017. He was subsequently transferred to the hospitalist service on 02/18/2017. - Chronic adrenal insufficiency - History of bilateral adrenal hemorrhage - Hyponatremia - Hyperkalemia - Hypotension - Hypotension, hyponatremia, hyperkalemia likely due to chronic adrenal insufficiency. - Currently patient is on prednisone 10 mg twice a day. - We will reduce prednisone 10 mg twice a day 2 prednisone 5 mg daily for chronic maintenance. - Patient should also be on fludrocortisone at least 0.1 mg daily. - Acute kidney injury - Improved from 3.83 --> 1.13. Nephrology followed patient closely. - History of DVT - Continue the Rivaroxaban 15mg BID X 21 days then start Rivaroxaban 20mg Qday for at least 6 months. - Has IVC filter placed in the previous admission. - Hyperglycemia - Will change medium sliding scale to low sliding scale. Last two blood glucose levels 123, 118. - Will discontinue sliding scale insulin and glucose check if blood glucose remains in the 120-130s range. - Asystole - Bradycardia - resolved. Currently heart rate is in the 80s. - s/p ACLS and ROSC. - Possibly due to hyperkalemia. - Currently on Metoprolol tartrate 25mg Q12hrs. Full code. Rivaroxaban. Problem Qualifiers (1) DVT (deep venous thrombosis): Layton Nolasco DO Feb 25, 2017 2:36 pm
[2017-02-25] MEDS ORDERED: DEXTROSE 50% IN WATER 50 ML VIAL(D50) IV PRN (14:45)
[2017-02-25] MEDS ORDERED: GLUCAGON 1 MG/ML VIAL OTHER PRN (14:45)
[2017-02-25] MEDS: INSULIN ASPART SUPPLEMENTAL SCALE SQ SCH ×2 (16:00→20:57)
[2017-02-26] VITALS (7 sets, daily range): BP systolic 105–159; BP diastolic 71–93; PULSE 71–89; RESP 16–21; TEMP 97.3–98.2; O2SAT 97–98
[2017-02-26] MEDS: CHLORHEXIDINE GLUCONATE 2 % 1 PACK (2 CLOTHS) TOP SCH (04:00)
[2017-02-26] MEDS: INSULIN ASPART SUPPLEMENTAL SCALE SQ SCH ×4 (06:06→20:45)
[2017-02-26] MEDS: CHLORHEXIDINE 0.12% (ORAL KIT) 15 ML CUP MT SCH ×2 (08:00→20:00)
[2017-02-26] MEDS: METOPROLOL TARTRATE 25 MG TAB PO SCH ×2 (08:10→20:34)
[2017-02-26] MEDS: RIVAROXABAN 15 MG TAB PO SCH ×2 (08:10→20:35)
[2017-02-26] MEDS: ASCORBIC ACID 500 MG TAB PO SCH (08:10)
[2017-02-26] MEDS: predniSONE 10 MG TAB PO SCH (08:11)
[2017-02-26] MEDS: SODIUM CHLORIDE 0.9% FLUSH 10 ML FLUSH IV FLUSH SCH ×2 (08:11→20:36)
[2017-02-26] MEDS: FLUDROCORTISONE ACETATE 0.1 MG TAB PO SCH (08:11)
[2017-02-26] MEDS: DOCUSATE SODIUM 100 MG CAP PO SCH ×2 (08:11→20:34)
[2017-02-26] MEDS: NYSTATIN 100,000 U/GM OINT 15 GM TUBE TOPICAL SCH ×3 (08:13→16:45)
[2017-02-26] MEDS: PANTOPRAZOLE SODIUM 40 MG VIAL IV SCH (08:13)
[2017-02-26] MEDS ORDERED: WALKER WHEELS/F1 MIS (14:22)
--- NOTE | 2017-02-26 15:22 | HHI.PR ---
Subjective Remarks Follow-up for adrenal insufficiency due to previous history of bilateral adrenal hemorrhage, DVT, hyponatremia, hyperkalemia. Patient is currently doing well. Sitting in his chair. Denies any acute chest pain, shortness of breath, fever or chills. Objective Vitals Vital Signs Date Time Temp Pulse Resp B/P Pulse Ox O2 Delivery O2 Flow Rate FiO2 02/26/17 11:44 97.9 80 17 105/71 98 02/26/17 10:44 Room Air 02/26/17 08:30 97 21 02/26/17 08:11 97.3 78 16 149/93 98 02/26/17 05:53 98.2 71 20 158/93 98 02/26/17 04:12 18 02/26/17 00:18 97.4 79 20 121/78 97 02/25/17 22:04 21 02/25/17 21:30 Room Air 02/25/17 20:40 97.7 91 20 124/79 100 02/25/17 16:37 99.2 91 20 138/76 97 02/25/17 15:17 Nasal Cannula 2.00 I/O 02/25/17 02/25/17 02/25/17 02/26/17 02/26/17 02/26/17 07:00 15:00 23:00 07:00 15:00 23:00 Intake Total 1200 ml 480 ml 480 ml Output Total 1500 ml 250 ml 800 ml 4750 ml Balance -1500 ml 950 ml -320 ml -4270 ml Intake Oral 1200 ml 480 ml 480 ml Output Urine Total 1500 ml 250 ml 800 ml 4750 ml # Voids 1 4 1 # Bowel Movements 1 1 0 Result Diagram: 02/25/17 0857 02/23/17 1543 Imaging Last Impressions Chest X-Ray 02/19/17 0000 Signed Impressions: Service Date/Time: Sunday, February 19, 2017 08:56 - CONCLUSION: Interstitial prominence and mild air space disease. Small bilateral effusions. Matthew Aguirre MD Lower Extremity Ultrasound 02/16/17 0000 Signed Impressions: Service Date/Time: Thursday, February 16, 2017 15:38 - CONCLUSION: Bilateral DVT as above. DVT on the left is no since January 04. Santos Arce MD Liver Ultrasound 02/16/17 0000 Signed Impressions: Service Date/Time: Thursday, February 16, 2017 07:43 - CONCLUSION: There is no intrahepatic biliary duct dilatation. Garrison Clinton MD FACR Head CT 02/14/17 1152 Signed Impressions: Service Date/Time: February 12:22 - CONCLUSION: 1. No acute intracranial abnormality. Flash Clinton MD Abdomen/Pelvis CT 02/14/17 0000 Signed Impressions: Service Date/Time: February 14:38 - CONCLUSION: 1. Mild gaseous distention of the cecum. 2. Very minimal right basilar effusion. 3. No focal abscess identified. 4. Minimal left inguinal hernia. Flash Clinton MD Objective Remarks GENERAL: Alert, NAD. SKIN: Warm and dry. HEAD: Normocephalic. EYES: No scleral icterus. No injection or drainage. NECK: Supple, trachea midline. No JVD or lymphadenopathy. CARDIOVASCULAR: Regular rate and rhythm without murmurs, gallops, or rubs. RESPIRATORY: Breath sounds equal bilaterally. No accessory muscle use. GASTROINTESTINAL: Abdomen soft, non-tender, nondistended. MUSCULOSKELETAL: No cyanosis, or edema. BACK: Nontender without obvious deformity. No CVA tenderness. Procedures Intubation central line A/P Problem List: (1) Normocytic anemia ICD Code: D64.9 Status: Acute (2) TIBURCIO (acute kidney injury) ICD Code: N17.9 Status: Acute (3) Elevated liver function tests ICD Code: R79.89 Status: Acute (4) DVT (deep venous thrombosis) ICD Code: I82.409 Status: Acute (5) Sepsis ICD Code: A41.9 Status: Acute (6) Altered mental status ICD Code: R41.82 Status: Acute (7) Hyponatremia ICD Code: E87.1 Status: Acute Assessment and Plan Mr. Noble is a pleasant 76-year-old male with a history of bilateral adrenal hemorrhage, DVT status post IVC filter placement who presented to the emergency department on 02/14/2017 due to delirium, hypertension as well as lab finding of hyponatremia and hyperkalemia. His hemoglobin was 7 and white blood cell count was 17,000. His systolic blood pressure on admission was in the 70s initially. Patient received 2 L of normal saline bolus along with vancomycin and Zosyn after obtaining blood cultures. Patient was bradycardic and subsequently underwent ACLS protocol due to asystole with return of spontaneous circulation. He was intubated and placed on mechanical ventilation. CT abdomen pelvis as well as CT head were unremarkable for any acute findings. Patient required IV fluid as well as Levophed for pressure support patient was extubated on 02/15/2017. He was subsequently transferred to the hospitalist service on 02/18/2017. - Chronic adrenal insufficiency - History of bilateral adrenal hemorrhage - Hyponatremia - Hyperkalemia - Hypotension - Hypotension, hyponatremia, hyperkalemia likely due to chronic adrenal insufficiency. - Currently patient is on prednisone 10 mg twice a day. - Continue 5 mg daily for chronic maintenance. - Continue fludrocortisone 0.1 mg daily. Will consider increasing to 0.2mg Qday. - Acute kidney injury - Improved from 3.83 --> 1.13. Nephrology followed patient closely. - History of DVT - Continue the Rivaroxaban 15mg BID X 21 days then start Rivaroxaban 20mg Qday for at least 6 months. - Has IVC filter placed in the previous admission. - Hyperglycemia - Continue low sliding scale. May need to add Levemir. Last Blood glucose 109 , 165. - Asystole - Bradycardia - resolved. Currently heart rate is in the 80s. - s/p ACLS and ROSC. - Possibly due to hyperkalemia. - Currently on Metoprolol tartrate 25mg Q12hrs. Full code. Rivaroxaban. Problem Qualifiers (1) DVT (deep venous thrombosis): Layton Nolasco DO Feb 26, 2017 3:21 pm Layton Nolasco DO Feb 26, 2017 3:21 pm
[2017-02-27 00:34] VITALS: BP 157/91; PULSE 80; RESP 18; TEMP 96.6; O2SAT 94
[2017-02-27] MEDS: CHLORHEXIDINE GLUCONATE 2 % 1 PACK (2 CLOTHS) TOP SCH (04:00)
[2017-02-27 05:29] VITALS: BP 150/82; PULSE 78; RESP 20; TEMP 98.2; O2SAT 94
[2017-02-27] MEDS: INSULIN ASPART SUPPLEMENTAL SCALE SQ SCH ×4 (06:08→21:00)
[2017-02-27 07:30] VITALS: BP 152/84; PULSE 84; RESP 17; TEMP 97.2; O2SAT 97
[2017-02-27] MEDS: CHLORHEXIDINE 0.12% (ORAL KIT) 15 ML CUP MT SCH ×2 (08:00→20:00)
[2017-02-27] MEDS: NYSTATIN 100,000 U/GM OINT 15 GM TUBE TOPICAL SCH ×3 (09:00→18:00)
[2017-02-27] MEDS: DOCUSATE SODIUM 100 MG CAP PO SCH ×3 (09:53→22:36)
[2017-02-27] MEDS: PANTOPRAZOLE SODIUM 40 MG VIAL IV SCH (09:53)
[2017-02-27] MEDS: ASCORBIC ACID 500 MG TAB PO SCH (09:54)
[2017-02-27] MEDS: predniSONE 10 MG TAB PO SCH (09:54)
[2017-02-27] MEDS: RIVAROXABAN 15 MG TAB PO SCH ×2 (09:54→22:37)
[2017-02-27] MEDS: METOPROLOL TARTRATE 25 MG TAB PO SCH ×2 (09:54→22:36)
[2017-02-27] MEDS: FLUDROCORTISONE ACETATE 0.1 MG TAB PO SCH (09:54)
[2017-02-27] MEDS: SODIUM CHLORIDE 0.9% FLUSH 10 ML FLUSH IV FLUSH SCH ×2 (10:04→21:00)
[2017-02-27 11:00] VITALS: BP 116/64; PULSE 87; RESP 17; TEMP 96.2; O2SAT 97
--- NOTE | 2017-02-27 13:34 | PD.ONC.PN ---
Subjective Subjective Remarks Afebrile overnight Pt has no complaints Objective Data Date Time Temp Pulse Resp B/P Pulse Ox O2 Delivery O2 Flow Rate FiO2 02/27/17 11:00 96.2 87 17 116/64 97 02/27/17 07:30 97.2 84 17 152/84 97 02/27/17 07:03 18 02/27/17 07:00 Room Air 02/27/17 05:29 98.2 78 20 150/82 94 02/27/17 00:34 96.6 80 18 157/91 94 02/26/17 20:00 97.8 89 21 138/76 97 02/26/17 16:15 97.9 83 17 159/88 97 02/27/17 02/27/17 02/27/17 07:00 15:00 23:00 Output Total 300 ml 175 ml Balance -300 ml -175 ml Result Diagram: 02/25/17 0857 02/23/17 1543 Administered Medications Medications (Trade) Dose Ordered Sig/Jose Route PRN Reason Start Time Stop Time Status Last Admin Dose Admin Sodium Chloride (NS Flush) 2 ml BID IV FLUSH 02/14/17 21:00 02/27/17 10:04 Chlorhexidine Gluconate (Peridex 0.12% Liq) 15 ml BID@08,20 MT 02/14/17 20:00 02/26/17 08:00 Pantoprazole Sodium (Protonix Inj) 40 mg DAILY IV 02/14/17 16:00 02/27/17 09:53 Chlorhexidine Gluconate (Chlorhexidine 2% Cloth) Taper DAILY@04 TOP 02/15/17 04:00 02/11/18 03:59 02/19/17 03:29 Metoprolol Tartrate (Lopressor) 25 mg Q12HR PO 02/17/17 09:00 02/27/17 09:54 Guaifenesin (Robitussin Liq) 200 mg Q4H PRN PO Cough 02/18/17 08:30 02/20/17 00:32 Benzocaine/Menthol (Cepacol Extra Billie (Sugar Free)) 1 lozenge Q2HR PRN BUCCAL tickle in throat 02/18/17 10:00 02/25/17 21:23 Ascorbic Acid (Vitamin C) 500 mg DAILY PO 02/19/17 09:00 02/27/17 09:54 Oxycodone HCl (Roxicodone) 5 mg Q4H PRN PO PAIN SCALE 3 TO 7 02/18/17 18:15 02/25/17 12:56 Docusate Sodium (Colace) 100 mg BID PO 02/19/17 21:00 02/27/17 09:53 Magnesium Hydroxide (Milk Of Magnzohaib Liq) 30 ml DAILY PRN PO Constipation 02/19/17 12:00 02/21/17 09:09 Rivaroxaban (Xarelto) 15 mg BID PO 02/21/17 21:00 03/14/17 23:00 02/27/17 09:54 Clonidine (Catapres) 0.1 mg Q6H PRN PO SBP>160, DBP>90 02/22/17 08:30 02/25/17 08:52 Nystatin (Mycostatin Oint) 1 applic TID TOPICAL 02/22/17 13:00 02/27/17 09:00 Oxycodone HCl (Roxicodone) 10 mg Q4H PRN PO PAIN SCALE 8 TO 10 02/23/17 11:45 02/27/17 10:02 Prednisone (Deltasone) 5 mg DAILY PO 02/26/17 09:00 02/27/17 09:54 Fludrocortisone Acetate (Florinef) 0.1 mg DAILY PO 02/26/17 09:00 02/27/17 09:54 Objective Remarks GENERAL: Older male, sitting up in chair at bedside asleep in no distress. SKIN: Warm and dry. HEAD: Normocephalic. EYES: No injection or drainage. NECK: Supple, trachea midline. CARDIOVASCULAR: +S1/S2. RESPIRATORY: Lung sounds clear anteriorly. Breathing unlabored. GASTROINTESTINAL: Abdomen soft, non-tender, nondistended. EXTREMITIES: LLE edema with known DVT. BLE well perfused. NEUROLOGICAL: Awake, normal speech. Moving all extremities. Assessment/Plan Problem List: (1) DVT (deep venous thrombosis) Status: Acute Plan: --Pt with bilateral LE DVT --h/o bilateral adrenal hemorrhages --s/p IVC filter placement. --still at risk for further expansion of the DVT in lower extremity --h/o atrial fibrillation --currently on Xarelto (2) Normocytic anemia Status: Acute Plan: -- Will again ask nursing staff to obtain stool for occult blood. -- Blood counts stable Assessment 76y/o male admitted with severe sepsis, AMS. Hematology consulted to make recommendations on anticoagulation in patient history of DVT with lupus anticoagulant and history of adrenal hemorrhages history of DVT and lupus anticoagulant with history of adrenal hemorrhages --While in the emergency room, he became bradycardic and he subsequently asystole. --underwent CPR ACLS protocol for about 15 minutes and he had return of spontaneous circulation. --s/p IVC filter placement Plan 1. Pt tolerating Xarelto with no oozing. 2. Will obtain stool for C-diff. 3. Case mgmt is attempting to find placement for him as his girlfriend cannot currently help take care of him. 4. Monitor CBC. Discussed with Dr Nolasco Attending Statement The exam, history, and the medical decision-making described in the above note were completed with the assistance of the mid-level provider. I reviewed and agree with the findings presented. I attest that I had a [id number] encounter with the patient on the same day, and personally performed and documented my assessment and findings in the medical record Problem Qualifiers (1) DVT (deep venous thrombosis): Wendy Duffy Feb 27, 2017 13:34 Anatoliy Arauz MD Feb 28, 2017 00:23
--- NOTE | 2017-02-27 15:10 | HHI.PR ---
Subjective Remarks Written by Ailyn Rios, acting as scribe for Dr. Nolasco on 02/27/17 at 15:10. Follow-up for adrenal insufficiency due to previous history of bilateral adrenal hemorrhage, DVT, hyponatremia, hyperkalemia. Patient seen and examined. He does complain of some left sided chest discomfort to palpation and not present otherwise. Patient states that he is tolerating ambulation and activity well. Spoke with RN at bedside, updated regarding right anterior calf wound with minimal serous drainage noted. Denies any recent fever, chills, headache, cough, shortness of breath, abdominal pain, n/v, diarrhea or dysuria. Tolerating PO intake. Positive BM. Objective Vitals Vital Signs Date Time Temp Pulse Resp B/P Pulse Ox O2 Delivery O2 Flow Rate FiO2 02/27/17 11:00 96.2 87 17 116/64 97 02/27/17 07:30 97.2 84 17 152/84 97 02/27/17 07:03 18 02/27/17 07:00 Room Air 02/27/17 05:29 98.2 78 20 150/82 94 02/27/17 00:34 96.6 80 18 157/91 94 02/26/17 20:00 97.8 89 21 138/76 97 02/26/17 16:15 97.9 83 17 159/88 97 I/O 02/26/17 02/26/17 02/26/17 02/27/17 02/27/17 02/27/17 07:00 15:00 23:00 07:00 15:00 23:00 Intake Total 480 ml 480 ml 240 ml Output Total 800 ml 4750 ml 400 ml 300 ml 525 ml Balance -320 ml -4270 ml -400 ml -300 ml -285 ml Intake Oral 480 ml 480 ml 240 ml Output Urine Total 800 ml 4750 ml 400 ml 300 ml 525 ml # Voids 1 1 2 1 # Bowel Movements 1 0 1 0 Result Diagram: 02/25/17 0857 02/23/17 1543 Imaging Last Impressions Chest X-Ray 02/19/17 0000 Signed Impressions: Service Date/Time: Sunday, February 19, 2017 08:56 - CONCLUSION: Interstitial prominence and mild air space disease. Small bilateral effusions. Matthew Aguirre MD Lower Extremity Ultrasound 02/16/17 0000 Signed Impressions: Service Date/Time: Thursday, February 16, 2017 15:38 - CONCLUSION: Bilateral DVT as above. DVT on the left is no since January 04. Santos Arce MD Liver Ultrasound 02/16/17 0000 Signed Impressions: Service Date/Time: Thursday, February 16, 2017 07:43 - CONCLUSION: There is no intrahepatic biliary duct dilatation. Garrison Clinton MD FACR Head CT 02/14/17 1152 Signed Impressions: Service Date/Time: February 12:22 - CONCLUSION: 1. No acute intracranial abnormality. Flash Clinton MD Abdomen/Pelvis CT 02/14/17 0000 Signed Impressions: Service Date/Time: February 14:38 - CONCLUSION: 1. Mild gaseous distention of the cecum. 2. Very minimal right basilar effusion. 3. No focal abscess identified. 4. Minimal left inguinal hernia. Flash Clinton MD Objective Remarks GENERAL: Well-nourished, well-developed male patient who is sitting up in chair comfortably. No acute distress. SKIN: Warm and dry. Right anterior calf wound noted, minimal serous drainage noted, dressing intact. HEENT: Normocephalic. Pupils nonicteric. Nose without bleeding. Airway patent. NECK: Supple, trachea midline. No JVD. CARDIOVASCULAR: Regular rate and rhythm. No murmur appreciated. RESPIRATORY: Breath sounds equal bilaterally. No accessory muscle use. GASTROINTESTINAL: Abdomen soft, non-tender, nondistended. MUSCULOSKELETAL: No cyanosis, or edema. Procedures Intubation central line A/P Problem List: (1) Normocytic anemia ICD Code: D64.9 Status: Acute (2) TIBURCIO (acute kidney injury) ICD Code: N17.9 Status: Acute (3) Elevated liver function tests ICD Code: R79.89 Status: Acute (4) DVT (deep venous thrombosis) ICD Code: I82.409 Status: Acute (5) Sepsis ICD Code: A41.9 Status: Acute (6) Altered mental status ICD Code: R41.82 Status: Acute (7) Hyponatremia ICD Code: E87.1 Status: Acute Assessment and Plan Mr. Noble is a pleasant 76-year-old male with a history of bilateral adrenal hemorrhage, DVT status post IVC filter placement who presented to the emergency department on 02/14/2017 due to delirium, hypertension as well as lab finding of hyponatremia and hyperkalemia. His hemoglobin was 7 and white blood cell count was 17,000. His systolic blood pressure on admission was in the 70s initially. Patient received 2 L of normal saline bolus along with vancomycin and Zosyn after obtaining blood cultures. Patient was bradycardic and subsequently underwent ACLS protocol due to asystole with return of spontaneous circulation. He was intubated and placed on mechanical ventilation. CT abdomen pelvis as well as CT head were unremarkable for any acute findings. Patient required IV fluid as well as Levophed for pressure support patient was extubated on 02/15/2017. He was subsequently transferred to the hospitalist service on 02/18/2017. Chronic adrenal insufficiency History of bilateral adrenal hemorrhage Hyponatremia Hyperkalemia Hypotension - Hypotension, hyponatremia, hyperkalemia likely due to chronic adrenal insufficiency. - Currently patient is on prednisone 10 mg twice a day. - Continue 5 mg daily for chronic maintenance. - Continue fludrocortisone 0.1 mg daily. Will consider increasing to 0.2mg Qday. Left sided chest discomfort to palpation suspect secondary to costochondritis - Chest x-ray from 02/19/17 reviewed showing interstitial prominence and mild air space disease. Small bilateral effusions noted. - Chest x-ray obtained today 02/27/17, reviewed and showing no acute intracranial abnormality. - Will continue to monitor. Acute kidney injury - Improved from 3.83 --> 1.13. Nephrology followed patient closely. History of DVT - Continue the Rivaroxaban 15mg BID X 21 days then start Rivaroxaban 20mg Qday for at least 6 months. - Has IVC filter placed in the previous admission. Hyperglycemia - Continue low sliding scale. May need to add Levemir. Last Blood glucose 150. Asystole Bradycardia - resolved. Currently heart rate is in the 80s. - s/p ACLS and ROSC. - Possibly due to hyperkalemia. - Currently on Metoprolol tartrate 25mg Q12hrs. DVT prophylaxis: Rivaroxaban. Full code. This note was transcribed by DANIEL Laurent. I, Dr. Dev Nolasco personally performed the history, physical exam, and medical decision making; and confirmed the accuracy of the information in the transcribed note. Authenticated by Dr. Dev Nolasco on 02/27/17 at 18:54. Problem Qualifiers (1) DVT (deep venous thrombosis): Ailyn Rios Feb 27, 2017 15:10 Layton Nolasco DO Feb 27, 2017 18:55
[2017-02-27 15:58] VITALS: BP 153/87; PULSE 92; RESP 19; TEMP 98; O2SAT 98
--- NOTE | 2017-02-27 16:59 | RADRPT ---
EXAM DATE/TIME: 02/27/2017 16:26 CORRECTION Corrected on: February 28, 2017; [facility] COMPARISON: CHEST SINGLE AP, February 15, 2017, 4:23. INDICATIONS : Left chest pain for 1 week MEDICAL HISTORY : Hypertension. Myocardial infarction. Chronic obstructive pulmonary disease SURGICAL HISTORY : None. ENCOUNTER: Subsequent ACUITY: 1 week PAIN SCORE: 6/10 LOCATION: Left chest FINDINGS: A single view of the chest demonstrates the lungs to be symmetrically aerated without evidence of mas s, infiltrate or effusion. The cardiomediastinal contours are unremarkable. Osseous structures are intact. CONCLUSION: 1. No acute cardiopulmonary disease. Hal Cm MD on February 27, 2017 at 16:56 Board Certified Radiologist. This report was verified electronically. Hal Cm MD on February 28, 2017 at 16:21 Board Certified Radiologist. This report was verified electronically.
[2017-02-27 20:00] VITALS: BP 136/73; PULSE 82; RESP 20; TEMP 97.6; O2SAT 97
[2017-02-28] VITALS (7 sets, daily range): BP systolic 107–181; BP diastolic 48–98; PULSE 72–86; RESP 19–20; TEMP 96–97.7; O2SAT 96–99
[2017-02-28] MEDS: CHLORHEXIDINE GLUCONATE 2 % 1 PACK (2 CLOTHS) TOP SCH (04:00)
[2017-02-28] MEDS: INSULIN ASPART SUPPLEMENTAL SCALE SQ SCH ×4 (07:00→21:00)
[2017-02-28] MEDS: CHLORHEXIDINE 0.12% (ORAL KIT) 15 ML CUP MT SCH ×2 (08:00→20:00)
[2017-02-28] MEDS: RIVAROXABAN 15 MG TAB PO SCH ×2 (08:55→20:58)
[2017-02-28] MEDS: DOCUSATE SODIUM 100 MG CAP PO SCH ×2 (08:55→20:58)
[2017-02-28] MEDS: ASCORBIC ACID 500 MG TAB PO SCH (08:56)
[2017-02-28] MEDS: predniSONE 10 MG TAB PO SCH (08:56)
[2017-02-28] MEDS: PANTOPRAZOLE SODIUM 40 MG VIAL IV SCH (08:56)
[2017-02-28] MEDS: SODIUM CHLORIDE 0.9% FLUSH 10 ML FLUSH IV FLUSH SCH ×2 (08:57→20:57)
[2017-02-28] MEDS: NYSTATIN 100,000 U/GM OINT 15 GM TUBE TOPICAL SCH ×3 (09:11→18:00)
[2017-02-28 09:22] LABS: AUTOMATED NEUTROPHIL # 7.8 TH/MM3 (1.8-7.7); BASOPHIL % 0.2 % (0.0-2.0); EOSINOPHIL # 0.2 TH/MM3 (0-0.4); EOSINOPHIL % 1.8 % (0.0-4.0); HEMATOCRIT 30.5 % (39.0-51.0); LYMPH % 14.8 % (9.0-44.0); LYMPHOCYTE # 1.5 TH/MM3 (1.0-4.8); MEAN CELL VOLUME 90.5 FL (80.0-100.0); MEAN CORPUSCULAR HEMOGLOBIN 30.6 PG (27.0-34.0); MEAN CORPUSCULAR HGB CONC 33.8 % (32.0-36.0); MONO % 7.8 % (0.0-8.0); NEUT % 75.4 % (16.0-70.0); PLATELET COUNT 349 TH/MM3 (150-450); RED BLOOD COUNT 3.37 MIL/MM3 (4.50-5.90); RED CELL DISTRIBUTION WIDTH 17.3 % (11.6-17.2); WHITE BLOOD COUNT 10.4 TH/MM3 (4.0-11.0)
[2017-02-28] MEDS: METOPROLOL TARTRATE 25 MG TAB PO SCH ×2 (09:22→20:58)
[2017-02-28] MEDS: cloNIDine HCL 0.1 MG TAB PO PRN (09:22)
[2017-02-28 09:35] LABS: HEMO FLAGS AUTO DIFF
[2017-02-28 09:40] LABS: BICARBONATE 32.3 MEQ/L (21.0-32.0); POTASSIUM 3.7 MEQ/L (3.5-5.1)
[2017-02-28] MEDS: FLUDROCORTISONE ACETATE 0.1 MG TAB PO SCH (09:58)
[2017-02-28 10:50] LABS: OVALOCYTES 1+ (NORMAL); SCAN/DIFF AUTO DIFF CONFIRMED; TOXIC GRANULATION 2+ (NORMAL)
[2017-02-28] MEDS ORDERED: PRED10 PO (12:41)
[2017-02-28] MEDS ORDERED: FLUD.1 PO (12:41)
[2017-02-28] MEDS ORDERED: XARE15TA PO (12:45)
--- NOTE | 2017-02-28 12:48 | HHI.DS ---
Discharge Summary Admission Date Feb 14, 2017 at 14:22 Discharge Date: Feb 28, 2017 Admitting Diagnosis SEVERE SEPSIS/AMS WITH HYPONATREMIA/HYPERKALEMIA (1) Normocytic anemia ICD Code: D64.9 (2) TIBURCIO (acute kidney injury) ICD Code: N17.9 (3) Elevated liver function tests ICD Code: R79.89 (4) DVT (deep venous thrombosis) ICD Code: I82.409 (5) Sepsis ICD Code: A41.9 (6) Altered mental status ICD Code: R41.82 (7) Hyponatremia ICD Code: E87.1 Procedures Intubation central line Brief History - From Admission 76-year-old Male. 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 Patient was found confused and altered by his roommate on 01/04. Was transferred to [facility]. CT abdomen and pelvis revealed a right-sided 3.6 x 2.5 cm left 2.5 bilateral adrenal hemorrhage. He was also diagnosed to have an ileus during that admission. He was evaluated by general surgery, GI who recommended medical management for ileus. He was also evaluated by Dr. Arauz from hematology and in view of bilateral adrenal hemorrhages he was felt to be too high risk for full anticoagulation hence an IVC filter was placed at the time due to his hypercoagulable state. He was positive for lupus anticoagulant and MTHFR gene mutation (heterozygous state). Patient was discharged on January 25, 2017 on a prednisone taper over 13 days which she completed around 02/08/2017. He was discharged to rehabilitation. Patient was not feeling well for the last week or so prior to current admission on 02/14 according to his sister whom I contacted by phone. He was sent to Dr. Trevino's office on 02/14 where he was noted to be confused and disoriented and hypotensive and she was sent to the ER. He had been noted to have a drop in hemoglobin at the rehabilitation a few days back. Patient was evaluated in the ER and was noted to have an altered mental status with sodium of 115, acute kidney injury with creatinine 3.83, potassium 6.2 and significant metabolic acidosis with bicarbonate of 15.8. His hemoglobin was 7 and white count was 17, 000. His systolic blood pressure was in the 70s initially. He received 2 L normal saline bolus was initiated on empiric vancomycin and Zosyn after obtaining blood cultures. While in the ER he became bradycardic and subsequently had an asystole for which CPR/ACLS protocol was initiated for about 15 minutes following which she had return of spontaneous circulation. He was intubated during the code and placed on mechanical ventilation. He was noted to have an elevated lactic acid of 6.2. He underwent CT of his abdomen and pelvis which was unremarkable. Head CT was negative for bleed. I evaluated patient after his arrival to the ICU from CAT scan. At that time he was orally intubated on mechanical ventilation appeared encephalopathic and not following commands. He did have his eyes open spontaneously at the time and was extremely tachypneic on mechanical ventilation due to his metabolic acidosis. I emergently placed a right subclavian central venous catheter as he was hypotensive requiring Levophed for pressor support. He had received 2 L normal saline bolus earlier and was being initiated on a bicarbonate drip. I also emergently placed a right axillary a line. History was obtained by reviewing records and discussion with patient's sister Karen Del Valle as well as ER physician. CBC/BMP: 02/28/17 0701 02/28/17 0701 Significant Findings Laboratory Tests Test 02/28/17 07:01 Red Blood Count 3.37 MIL/MM3 (4.50-5.90) Hemoglobin 10.3 GM/DL (13.0-17.0) Hematocrit 30.5 % (39.0-51.0) Red Cell Distribution Width 17.3 % (11.6-17.2) Neutrophils (%) (Auto) 75.4 % (16.0-70.0) Neutrophils # (Auto) 7.8 TH/MM3 (1.8-7.7) Toxic Granulation 2+ (NORMAL) Ovalocytes 1+ (NORMAL) Chloride Level 97 MEQ/L (98-107) Carbon Dioxide Level 32.3 MEQ/L (21.0-32.0) Blood Urea Nitrogen 19 MG/DL (7-18) Estimat Glomerular Filtration 70 ML/MIN (>89) Rate Imaging Last Impressions Chest X-Ray 02/27/17 0000 Signed Impressions: Service Date/Time: Monday, February 27, 2017 16:26 - CONCLUSION: 1. No acute intracranial abnormality. Hal Cm MD Lower Extremity Ultrasound 02/16/17 0000 Signed Impressions: Service Date/Time: Thursday, February 16, 2017 15:38 - CONCLUSION: Bilateral DVT as above. DVT on the left is no since January 04. Santos Arce MD Liver Ultrasound 02/16/17 0000 Signed Impressions: Service Date/Time: Thursday, February 16, 2017 07:43 - CONCLUSION: There is no intrahepatic biliary duct dilatation. Garrison Clinton MD FACR Head CT 02/14/17 1152 Signed Impressions: Service Date/Time: February 12:22 - CONCLUSION: 1. No acute intracranial abnormality. Flash Clinton MD Abdomen/Pelvis CT 02/14/17 0000 Signed Impressions: Service Date/Time: February 14:38 - CONCLUSION: 1. Mild gaseous distention of the cecum. 2. Very minimal right basilar effusion. 3. No focal abscess identified. 4. Minimal left inguinal hernia. Flash Clinton MD PE at Discharge GENERAL: Well-nourished, well-developed male patient who is sitting up in chair comfortably. No acute distress. SKIN: Warm and dry. Right anterior calf wound noted, minimal serous drainage noted, dressing intact. HEENT: Normocephalic. Pupils nonicteric. Nose without bleeding. Airway patent. NECK: Supple, trachea midline. No JVD. CARDIOVASCULAR: Regular rate and rhythm. No murmur appreciated. RESPIRATORY: Breath sounds equal bilaterally. No accessory muscle use. GASTROINTESTINAL: Abdomen soft, non-tender, nondistended. MUSCULOSKELETAL: No cyanosis, or edema. Pt update on day of discharge Patient is currently doing well. No acute concerns. Hemodynamically stable. Pt Condition on Discharge: Good Discharge Disposition: Discharge to SNF Discharge Time: > 30 minutes Discharge Instructions DIET: Follow Instructions for: As Tolerated, No Restrictions Activities you can perform: Regular-No Restrictions Follow up Referrals: PCP Follow-up - 2 Weeks New Medications: Oxycodone (Oxycodone) 10 Mg Tab 10 MG PO Q4H PRN Pain Scale 8 to 10 #20 Ref 0 TAB Rivaroxaban (Xarelto) 20 Mg Tab 20 MG PO DAILY Blood Clot Prevention #30 Ref 0 TAB Walker with Front Wheels (Walker with Front Wheels) 1 Mis Mis 1 EA .ROUTE DIRECTED #1 Ref 0 EA Albuterol Neb (Albuterol Neb) 2.5 Mg/3 Ml Neb 2.5 MG NEB Q4HR NEB PRN Wheezing, Dyspnea #30 NEBULE Benzocaine-Menthol Lozenge (Cepacol Sore Throat Lozenge) 15-3.6 Mg Lozg 1 LOZENGE BUCCAL Q2HR PRN tickle in throat #30 LOZENGE Docusate Sodium (Dok) 100 Mg Cap 100 MG PO BID Constipation #30 CAP Fludrocortisone (Fludrocortisone) 0.1 Mg Tab 0.1 MG PO DAILY Adrenal #90 TAB Metoprolol Tartrate (Metoprolol Tartrate) 25 Mg Tab 25 MG PO Q12HR Blood Pressure Management #60 TAB Oxycodone (Oxycodone) 5 Mg Tab 5 MG PO Q4H PRN Pain Scale 3 to 7 #30 TAB Prednisone (Prednisone) 10 Mg Tab 5 MG PO DAILY Adrenal #90 TAB Rivaroxaban (Xarelto) 15 Mg Tab 15 MG PO BID Blood Clot Prevention #33 TAB Continued Medications: Amlodipine (Norvasc) 10 Mg Tab 10 MG PO DAILY HTN Days 30 TAB Docusate Sodium (Dok) 100 Mg Cap 100 MG PO BID onstipation #20 CAP Multiple Vitamin (Thera/Beta-Carotene) 1 Tab Tab 1 TAB PO DAILY SUPP Days 30 TAB Discontinued Medications: Acetaminophen (Tylenol) 325 Mg Tab 650 MG PO Q6H PRN PAIN SCALE 1 TO 4 Ref 0 TAB Albuterol Neb (Albuterol Neb) 2.5 Mg/3 Ml Neb 2.5 MG INH Q8HR PRN CONSTIPATION Days 5 NEBULE Ascorbic Acid ER (Vitamin C ER) 500 Mg Isabel 500 MG PO Nutritional Supplement Ref [address] (Aspirin EC) 81 Mg Tabdr 81 MG PO DAILY DVT Days 30 TAB Doxycycline Hyclate (Doxycycline Hyclate) 100 Mg Cap 100 MG PO DAILY Infection Ref 0 CAP Lactobacillus Rhamnosus (GG) (Culturelle) 10 B Cell Cap 1 CAP PO DAILY Nutritional Supplement Ref 0 CAP Magnesium Hydroxide Liq (Milk of Magnesia Liq) 400 Mg/5 Ml Susp 30 ML PO DAILY PRN INDIGESTION OR UPSET STOMACH #1 Ref 0 BOTTLE Metoprolol Tartrate (Metoprolol Tartrate) 50 Mg Tab 50 MG PO BID #60 Ref 0 TAB Mineral Oil Enema (Fleet Oil Enema) 118 Ml Enem 1 EA RECTAL DIRECTED PRN CONSTIPATION #1 Ref 0 BOTTLE Ondansetron Odt (Zofran Odt) 4 Mg Tab 4 MG SL Q6HR PRN Nausea/Vomiting #30 Ref 0 TAB Sulfamethoxazole-Trimethoprim (Sulfamethoxazole-Trimethoprim) 800-160 Mg Tab 1 TAB PO BID Infection Ref 0 TAB Thiamine (Vitamin B-1) 100 Mg Tab 100 MG PO DAILY Nutritional Supplement Ref 0 TAB Layton Nolasco DO Feb 28, 2017 12:48
--- NOTE | 2017-02-28 14:11 | PD.ONC.PN ---
Subjective Subjective Remarks Afebrile overnight. Going to rehab in [place] today Has persistent L chest wall pain. Objective Data Date Time Temp Pulse Resp B/P Pulse Ox O2 Delivery O2 Flow Rate FiO2 02/28/17 11:50 96.0 85 19 121/66 98 02/28/17 09:45 110/48 02/28/17 07:25 97.1 86 19 181/98 98 02/28/17 04:00 97.1 72 20 161/88 96 02/28/17 00:00 97.7 79 20 137/74 97 02/27/17 20:00 97.6 82 20 136/73 97 02/27/17 15:58 98.0 92 19 153/87 98 02/28/17 02/28/17 02/28/17 07:00 15:00 23:00 Intake Total 300 ml Output Total 200 ml Balance 100 ml Result Diagram: 02/28/17 0701 02/28/17 0701 Laboratory Results Laboratory Tests Test 02/28/17 07:01 White Blood Count 10.4 TH/MM3 Red Blood Count 3.37 MIL/MM3 Hemoglobin 10.3 GM/DL Hematocrit 30.5 % Mean Corpuscular Volume 90.5 FL Mean Corpuscular Hemoglobin 30.6 PG Mean Corpuscular Hemoglobin 33.8 % Concent Red Cell Distribution Width 17.3 % Platelet Count 349 TH/MM3 Mean Platelet Volume 8.0 FL Neutrophils (%) (Auto) 75.4 % Lymphocytes (%) (Auto) 14.8 % Monocytes (%) (Auto) 7.8 % Eosinophils (%) (Auto) 1.8 % Basophils (%) (Auto) 0.2 % Neutrophils # (Auto) 7.8 TH/MM3 Lymphocytes # (Auto) 1.5 TH/MM3 Monocytes # (Auto) 0.8 TH/MM3 Eosinophils # (Auto) 0.2 TH/MM3 Basophils # (Auto) 0.0 TH/MM3 CBC Comment AUTO DIFF Differential Comment AUTO DIFF CONFIRMED Toxic Granulation 2+ Ovalocytes 1+ Sodium Level 136 MEQ/L Potassium Level 3.7 MEQ/L Chloride Level 97 MEQ/L Carbon Dioxide Level 32.3 MEQ/L Anion Gap 7 MEQ/L Blood Urea Nitrogen 19 MG/DL Creatinine 1.04 MG/DL Estimat Glomerular Filtration 70 ML/MIN Rate Random Glucose 79 MG/DL Calcium Level 8.6 MG/DL Administered Medications Medications (Trade) Dose Ordered Sig/Jose Route PRN Reason Start Time Stop Time Status Last Admin Dose Admin Sodium Chloride (NS Flush) 2 ml BID IV FLUSH 02/14/17 21:00 02/28/17 08:57 Chlorhexidine Gluconate (Peridex 0.12% Liq) 15 ml BID@08,20 MT 02/14/17 20:00 02/26/17 08:00 Pantoprazole Sodium (Protonix Inj) 40 mg DAILY IV 02/14/17 16:00 02/28/17 08:56 Chlorhexidine Gluconate (Chlorhexidine 2% Cloth) Taper DAILY@04 TOP 02/15/17 04:00 02/11/18 03:59 02/19/17 03:29 Metoprolol Tartrate (Lopressor) 25 mg Q12HR PO 02/17/17 09:00 02/28/17 09:22 Guaifenesin (Robitussin Liq) 200 mg Q4H PRN PO Cough 02/18/17 08:30 02/20/17 00:32 Benzocaine/Menthol (Cepacol Extra Billie (Sugar Free)) 1 lozenge Q2HR PRN BUCCAL tickle in throat 02/18/17 10:00 02/25/17 21:23 Ascorbic Acid (Vitamin C) 500 mg DAILY PO 02/19/17 09:00 02/28/17 08:56 Oxycodone HCl (Roxicodone) 5 mg Q4H PRN PO PAIN SCALE 3 TO 7 02/18/17 18:15 02/25/17 12:56 Docusate Sodium (Colace) 100 mg BID PO 02/19/17 21:00 02/28/17 08:55 Magnesium Hydroxide (Milk Of Magnesia Liq) 30 ml DAILY PRN PO Constipation 02/19/17 12:00 02/21/17 09:09 Rivaroxaban (Xarelto) 15 mg BID PO 02/21/17 21:00 03/14/17 23:00 02/28/17 08:55 Clonidine (Catapres) 0.1 mg Q6H PRN PO SBP>160, DBP>90 02/22/17 08:30 02/28/17 09:22 Nystatin (Mycostatin Oint) 1 applic TID TOPICAL 02/22/17 13:00 02/28/17 09:11 Oxycodone HCl (Roxicodone) 10 mg Q4H PRN PO PAIN SCALE 8 TO 10 02/23/17 11:45 02/28/17 12:26 Prednisone (Deltasone) 5 mg DAILY PO 02/26/17 09:00 02/28/17 08:56 Fludrocortisone Acetate (Florinef) 0.1 mg DAILY PO 02/26/17 09:00 02/28/17 09:58 Objective Remarks GENERAL: Older male, asleep in bed in no distress. SKIN: Warm and dry. HEAD: Normocephalic. EYES: No injection or drainage. NECK: Supple, trachea midline. CARDIOVASCULAR: +S1/S2. RESPIRATORY: Lung sounds clear anteriorly. Breathing unlabored. GASTROINTESTINAL: Abdomen soft, non-tender, nondistended. EXTREMITIES: LLE edema with known DVT. BLE well perfused. NEUROLOGICAL: Awake, normal speech. Moving all extremities. Assessment/Plan Problem List: (1) DVT (deep venous thrombosis) Status: Acute Plan: --Pt with bilateral LE DVT --h/o bilateral adrenal hemorrhages --s/p IVC filter placement. --still at risk for further expansion of the DVT in lower extremity --h/o atrial fibrillation --currently on Xarelto (2) Normocytic anemia Status: Acute Plan: -- Blood counts stable Assessment 76y/o male admitted with severe sepsis, AMS. Hematology consulted to make recommendations on anticoagulation in patient history of DVT with lupus anticoagulant and history of adrenal hemorrhages history of DVT and lupus anticoagulant with history of adrenal hemorrhages --While in the emergency room, he became bradycardic and he subsequently asystole. --underwent CPR ACLS protocol for about 15 minutes and he had return of spontaneous circulation. --s/p IVC filter placement Plan 1. Pt being discharged today to [facility] in [facility] on Xarelto. 2. Pt doing clinically well from hematology standpoint. Will sign off. Attending Statement The exam, history, and the medical decision-making described in the above note were completed with the assistance of the mid-level provider. I reviewed and agree with the findings presented. I attest that I had a [id number]-ex-vdoh encounter with the patient on the same day, and personally performed and documented my assessment and findings in the medical record Problem Qualifiers (1) DVT (deep venous thrombosis): Wendy Duffy Feb 28, 2017 14:11 Anatoliy Arauz MD Feb 28, 2017 22:23
[2017-03-01] VITALS: PULSE 76; RESP 20; TEMP 97.6; O2SAT 99
--- NOTE | 2017-03-01 00:14 | HHI.PR ---
Subjective Remarks Late entry for 02/28/2017 We placed discharge orders. However, due to placement/safe discharge issues, patient was not actually discharged. Follow-up for adrenal insufficiency due to previous history of bilateral adrenal hemorrhage, DVT, hyponatremia, hyperkalemia. Patient is doing well. no acute concerns. No fever, chills. Objective Vitals Vital Signs Date Time Temp Pulse Resp B/P Pulse Ox O2 Delivery O2 Flow Rate FiO2 02/28/17 20:00 97.5 74 20 107/65 98 02/28/17 16:40 96.6 80 19 135/79 99 02/28/17 11:50 96.0 85 19 121/66 98 02/28/17 09:45 110/48 02/28/17 07:25 97.1 86 19 181/98 98 02/28/17 07:00 Room Air 02/28/17 04:00 97.1 72 20 161/88 96 I/O 02/28/17 02/28/17 02/28/17 03/01/17 03/01/17 03/01/17 07:00 15:00 23:00 07:00 15:00 23:00 Intake Total 300 ml Output Total 200 ml 200 ml Balance 100 ml -200 ml Intake Oral 300 ml Output Urine Total 200 ml 200 ml # Voids 1 3 # Bowel Movements 1 Result Diagram: 02/28/1770002/28/17700 Objective Remarks GENERAL: Alert, NAD. SKIN: Warm and dry. HEAD: Normocephalic. EYES: No scleral icterus. No injection or drainage. NECK: Supple, trachea midline. No JVD or lymphadenopathy. CARDIOVASCULAR: Regular rate and rhythm without murmurs, gallops, or rubs. RESPIRATORY: Breath sounds equal bilaterally. No accessory muscle use. GASTROINTESTINAL: Abdomen soft, non-tender, nondistended. MUSCULOSKELETAL: No cyanosis, or edema. BACK: Nontender without obvious deformity. No CVA tenderness. Procedures Intubation central line A/P Problem List: (1) Normocytic anemia ICD Code: D64.9 Status: Acute (2) TIBURCIO (acute kidney injury) ICD Code: N17.9 Status: Acute (3) Elevated liver function tests ICD Code: R79.89 Status: Acute (4) DVT (deep venous thrombosis) ICD Code: I82.409 Status: Acute (5) Sepsis ICD Code: A41.9 Status: Acute (6) Altered mental status ICD Code: R41.82 Status: Acute (7) Hyponatremia ICD Code: E87.1 Status: Acute Assessment and Plan Mr. Noble is a pleasant 76-year-old male with a history of bilateral adrenal hemorrhage, DVT status post IVC filter placement who presented to the emergency department on 02/14/2017 due to delirium, hypertension as well as lab finding of hyponatremia and hyperkalemia. His hemoglobin was 7 and white blood cell count was 17,000. His systolic blood pressure on admission was in the 70s initially. Patient received 2 L of normal saline bolus along with vancomycin and Zosyn after obtaining blood cultures. Patient was bradycardic and subsequently underwent ACLS protocol due to asystole with return of spontaneous circulation. He was intubated and placed on mechanical ventilation. CT abdomen pelvis as well as CT head were unremarkable for any acute findings. Patient required IV fluid as well as Levophed for pressure support patient was extubated on 02/15/2017. He was subsequently transferred to the hospitalist service on 02/18/2017. Chronic adrenal insufficiency History of bilateral adrenal hemorrhage Hyponatremia Hyperkalemia Hypotension - Hypotension, hyponatremia, hyperkalemia likely due to chronic adrenal insufficiency. - Currently patient is on prednisone 10 mg twice a day. - Continue 5 mg daily for chronic maintenance. - Continue fludrocortisone 0.1 mg daily. Left sided chest discomfort to palpation suspect secondary to costochondritis - Chest x-ray from 02/19/17 reviewed showing interstitial prominence and mild air space disease. Small bilateral effusions noted. - Chest x-ray obtained today 02/27/17, reviewed and showing no acute intracranial abnormality. Acute kidney injury - Improved from 3.83 --> 1.13. Nephrology followed patient closely. History of DVT - Continue the Rivaroxaban 15mg BID X 21 days then start Rivaroxaban 20mg Qday for at least 6 months. - Has IVC filter placed in the previous admission. Hyperglycemia - Continue low sliding scale. May need to add Levemir. Last Blood glucose 150. Asystole Bradycardia - resolved. Currently heart rate is in the 80s. - s/p ACLS and ROSC. - Possibly due to hyperkalemia. - Currently on Metoprolol tartrate 25mg Q12hrs. DVT prophylaxis: Rivaroxaban. Full code. Problem Qualifiers (1) DVT (deep venous thrombosis): Layton Nolasco DO Mar 01, 2017 00:14
[2017-03-01] MEDS: CHLORHEXIDINE GLUCONATE 2 % 1 PACK (2 CLOTHS) TOP SCH (03:03)
[2017-03-01 04:00] VITALS: BP 149/79; PULSE 75; RESP 20; TEMP 96.5; O2SAT 97
[2017-03-01] MEDS: INSULIN ASPART SUPPLEMENTAL SCALE SQ SCH ×4 (06:35→20:13)
[2017-03-01 08:00] VITALS: BP 156/80; PULSE 74; RESP 18; TEMP 98.2; O2SAT 97
[2017-03-01] MEDS: CHLORHEXIDINE 0.12% (ORAL KIT) 15 ML CUP MT SCH ×2 (08:00→20:13)
[2017-03-01] MEDS: RIVAROXABAN 15 MG TAB PO SCH ×2 (08:56→20:08)
[2017-03-01] MEDS: ASCORBIC ACID 500 MG TAB PO SCH (08:56)
[2017-03-01] MEDS: FLUDROCORTISONE ACETATE 0.1 MG TAB PO SCH (08:56)
[2017-03-01] MEDS: predniSONE 10 MG TAB PO SCH (08:56)
[2017-03-01] MEDS: DOCUSATE SODIUM 100 MG CAP PO SCH ×2 (08:56→20:13)
[2017-03-01] MEDS: METOPROLOL TARTRATE 25 MG TAB PO SCH ×2 (08:56→20:07)
[2017-03-01] MEDS: SODIUM CHLORIDE 0.9% FLUSH 10 ML FLUSH IV FLUSH SCH ×2 (08:57→20:08)
[2017-03-01] MEDS: NYSTATIN 100,000 U/GM OINT 15 GM TUBE TOPICAL SCH ×4 (08:57→15:59)
[2017-03-01] MEDS: PANTOPRAZOLE SODIUM 40 MG VIAL IV SCH (08:57)
[2017-03-01 12:42] VITALS: BP 135/73; PULSE 85; RESP 18; TEMP 96.9; O2SAT 97
--- NOTE | 2017-03-01 14:26 | HHI.PR ---
Subjective Remarks Follow-up for adrenal insufficiency due to previous history of bilateral adrenal hemorrhage, DVT, hyponatremia, hyperkalemia. Patient is currently doing well. Denies any chest pain, shortness of breath, fever or chills. He would like to go to [facility]. However if management cannot be made he is willing to stay in [facility]. Objective Vitals Vital Signs Date Time Temp Pulse Resp B/P Pulse Ox O2 Delivery O2 Flow Rate FiO2 03/01/17 12:42 96.9 85 18 135/73 97 03/01/17 08:00 Room Air 03/01/17 08:00 98.2 74 18 156/80 97 03/01/17 04:00 96.5 75 20 149/79 97 03/01/17 00:00 97.6 76 20 99 02/28/17 22:02 18 02/28/17 20:00 97.5 74 20 107/65 98 02/28/17 16:40 96.6 80 19 135/79 99 I/O 02/28/17 02/28/17 02/28/17 03/01/17 03/01/17 03/01/17 07:00 15:00 23:00 07:00 15:00 23:00 Intake Total 300 ml Output Total 200 ml 200 ml Balance 100 ml -200 ml Intake Oral 300 ml Output Urine Total 200 ml 200 ml # Voids 1 3 # Bowel Movements 1 Result Diagram: 02/28/1770002/28/17700 Objective Remarks GENERAL: Alert, NAD. SKIN: Warm and dry. HEAD: Normocephalic. EYES: No scleral icterus. No injection or drainage. NECK: Supple, trachea midline. No JVD or lymphadenopathy. CARDIOVASCULAR: Regular rate and rhythm without murmurs, gallops, or rubs. RESPIRATORY: Breath sounds equal bilaterally. No accessory muscle use. GASTROINTESTINAL: Abdomen soft, non-tender, nondistended. MUSCULOSKELETAL: No cyanosis, or edema. BACK: Nontender without obvious deformity. No CVA tenderness. Procedures Intubation central line A/P Problem List: (1) Normocytic anemia ICD Code: D64.9 Status: Acute (2) TIBURCIO (acute kidney injury) ICD Code: N17.9 Status: Acute (3) Elevated liver function tests ICD Code: R79.89 Status: Acute (4) DVT (deep venous thrombosis) ICD Code: I82.409 Status: Acute (5) Sepsis ICD Code: A41.9 Status: Acute (6) Altered mental status ICD Code: R41.82 Status: Acute (7) Hyponatremia ICD Code: E87.1 Status: Acute Assessment and Plan Mr. Noble is a pleasant 76-year-old male with a history of bilateral adrenal hemorrhage, DVT status post IVC filter placement who presented to the emergency department on 02/14/2017 due to delirium, hypertension as well as lab finding of hyponatremia and hyperkalemia. His hemoglobin was 7 and white blood cell count was 17,000. His systolic blood pressure on admission was in the 70s initially. Patient received 2 L of normal saline bolus along with vancomycin and Zosyn after obtaining blood cultures. Patient was bradycardic and subsequently underwent ACLS protocol due to asystole with return of spontaneous circulation. He was intubated and placed on mechanical ventilation. CT abdomen pelvis as well as CT head were unremarkable for any acute findings. Patient required IV fluid as well as Levophed for pressure support patient was extubated on 02/15/2017. He was subsequently transferred to the hospitalist service on 02/18/2017. Chronic adrenal insufficiency History of bilateral adrenal hemorrhage Hyponatremia Hyperkalemia Hypotension - Hypotension, hyponatremia, hyperkalemia likely due to chronic adrenal insufficiency. - Currently patient is on prednisone 10 mg twice a day. - Continue 5 mg daily for chronic maintenance. - Continue fludrocortisone 0.1 mg daily. Left sided chest discomfort to palpation suspect secondary to costochondritis - Chest x-ray from 02/19/17 reviewed showing interstitial prominence and mild air space disease. Small bilateral effusions noted. - Chest x-ray obtained today 02/27/17, reviewed and showing no acute intracranial abnormality. Acute kidney injury - Improved from 3.83 --> 1.13. Nephrology followed patient closely. History of DVT - Continue the Rivaroxaban 15mg BID X 21 days then start Rivaroxaban 20mg Qday for at least 6 months. - Has IVC filter placed in the previous admission. Hyperglycemia - Continue low sliding scale. May need to add Levemir. Last Blood glucose 150. Asystole Bradycardia - resolved. Currently heart rate is in the 80s. - s/p ACLS and ROSC. - Possibly due to hyperkalemia. - Currently on Metoprolol tartrate 25mg Q12hrs. DVT prophylaxis: Rivaroxaban. Full code. Discharge plan : Discussed with case management. [facility] However transportation may not be arranged today. Problem Qualifiers (1) DVT (deep venous thrombosis): Layton Nolasco DO Mar 01, 2017 2:26 pm
[2017-03-01 16:00] VITALS: BP 164/82; PULSE 85; RESP 18; TEMP 98.4; O2SAT 97
[2017-03-01 19:56] VITALS: BP 163/96; PULSE 79; RESP 20; TEMP 98.6; O2SAT 99
[2017-03-02 00:45] VITALS: BP 152/72
[2017-03-02 02:04] VITALS: PULSE 77; RESP 20; TEMP 98.7; O2SAT 100
[2017-03-02] MEDS: CHLORHEXIDINE GLUCONATE 2 % 1 PACK (2 CLOTHS) TOP SCH (04:00)
[2017-03-02 05:39] VITALS: BP 160/84; PULSE 78; RESP 20; TEMP 98.5; O2SAT 100
[2017-03-02] MEDS: INSULIN ASPART SUPPLEMENTAL SCALE SQ SCH (06:34)
[2017-03-02 07:40] VITALS: BP 155/87; PULSE 86; RESP 20; TEMP 96.9; O2SAT 96
[2017-03-02] MEDS: SODIUM CHLORIDE 0.9% FLUSH 10 ML FLUSH IV FLUSH SCH (08:01)
[2017-03-02] MEDS: PANTOPRAZOLE SODIUM 40 MG VIAL IV SCH (08:01)
[2017-03-02] MEDS: FLUDROCORTISONE ACETATE 0.1 MG TAB PO SCH (08:02)
[2017-03-02] MEDS: predniSONE 10 MG TAB PO SCH (08:03)
[2017-03-02] MEDS: DOCUSATE SODIUM 100 MG CAP PO SCH (08:03)
[2017-03-02] MEDS: ASCORBIC ACID 500 MG TAB PO SCH (08:03)
[2017-03-02] MEDS: METOPROLOL TARTRATE 25 MG TAB PO SCH (08:07)
[2017-03-02] MEDS: NYSTATIN 100,000 U/GM OINT 15 GM TUBE TOPICAL SCH (08:09)
[2017-03-02] MEDS: RIVAROXABAN 15 MG TAB PO SCH (08:09)
== END 2017-03-02 08:16 | DRG 871 ==
LOC: NEPC 11:47 → NEDA 14:22 → HIMW 15:05 → N05A 02-18 13:15
PROVIDERS: ADMIT Hospitalist; ATTEND Hospitalist
PROC: 5A1935Z Respiratory Ventilation, Less than 24 Consecutive Hours (ICD-10-PCS; principal; 2017-02-14)
PROC: 03HY32Z Insertion of Monitoring Device into Upper Artery, Percutaneous Approach (ICD-10-PCS; 2017-02-14)
PROC: 5A12012 Performance of Cardiac Output, Single, Manual (ICD-10-PCS; 2017-02-14)
PROC: 02HV33Z Insertion of Infusion Device into Superior Vena Cava, Percutaneous Approach (ICD-10-PCS; 2017-02-14)
PROC: 0BH17EZ Insertion of Endotracheal Airway into Trachea, Via Natural or Artificial Opening (ICD-10-PCS; 2017-02-14)
PROC: 30233N1 Transfusion of Nonautologous Red Blood Cells into Peripheral Vein, Percutaneous Approach (ICD-10-PCS; 2017-02-14)
DX: A41.9 Sepsis, unspecified organism (principal); I46.9 Cardiac arrest, cause unspecified; J96.00 Acute respiratory failure, unspecified whether with hypoxia or hypercapnia; K72.00 Acute and subacute hepatic failure without coma; N17.0 Acute kidney failure with tubular necrosis; J18.9 Pneumonia, unspecified organism; J90 Pleural effusion, not elsewhere classified; R65.21 Severe sepsis with septic shock; D68.59 Other primary thrombophilia; E87.1 Hypo-osmolality and hyponatremia; E87.2 Acidosis; E27.2 Addisonian crisis; I82.503 Chronic embolism and thrombosis of unspecified deep veins of lower extremity, bilateral; L97.319 Non-pressure chronic ulcer of right ankle with unspecified severity; J44.9 Chronic obstructive pulmonary disease, unspecified; D64.9 Anemia, unspecified; E87.5 Hyperkalemia; I10 Essential (primary) hypertension; I48.91 Unspecified atrial fibrillation; E86.0 Dehydration; E87.6 Hypokalemia; B37.2 Candidiasis of skin and nail; R73.9 Hyperglycemia, unspecified; M94.0 Chondrocostal junction syndrome [Tietze]; F32.9 Major depressive disorder, single episode, unspecified; F41.9 Anxiety disorder, unspecified; Z66 Do not resuscitate; Z79.01 Long term (current) use of anticoagulants
CPT/HCPCS: 31500; 36430; 36600; 70450; 71010; 71020; 74176; 76705; 76937; 80048; 80053; 80074; 81001; 82140; 82533; 82550; 82552; 82607; 82728; 82747; 82805; 82948; 83010; 83540; 83550; 83605; 83615; 83735; 83930; 83935; 84100; 84300; 84443; 84484; 85007; 85025; 85027; 85610; 85730; 86850; 86880; 86900; 86901; 86920; 87040; 87070; 87149; 87186; 87205; 87641; 93005; 93970; 94002; 94003; 94150; 94620; 94640; 94664; 96374; 96375; C9113; J0171; J0461; J0610; J1100; J1610; J1644; J1720; J1815; J1956; J2270; J2543; J3370; J3480; J7030; J7050; J7070; J7512; J7613; P9016